=== PATIENT | female | born 1970 | race Hispanic/Latino ===

== ENCOUNTER 2016-11-05 11:04 | Inpatient (IN) | payer MEDICAID, OTHER ==
[2016-11-05 12:20] LABS: Basophils % (Auto) 0.9 % (0.0-1.8); Hematocrit 37.7 % (30.3-42.9); Hemoglobin 12.4 gm/dl (10.1-14.3); Mean Corpuscular HGB Conc 33 % (30-34); Mean Corpuscular Hemoglobin 35 pg (28-32); Mean Corpuscular Volume 105 fl (79-97); Platelet Count 262 K/mm3 (140-440)
[2016-11-05 12:46] LABS: Alanine Aminotransferase 12 units/L (7-56); Albumin 2.2 g/dL (3.9-5); Albumin/Globulin Ratio 0.5 %; Alkaline Phosphatase 193 units/L (35-129); Bilirubin,Total 3.5 mg/dL (0.1-1.2); Blood Urea Nitrogen 5 mg/dL (7-17); Calcium 7.9 mg/dL (8.4-10.2); Carbon Dioxide 23 mmol/L (22-30); Glucose 103 mg/dL (65-100); Lipase 26 units/L (13-60); Total Protein 6.7 g/dL (6.3-8.2)
[2016-11-05 12:47] LABS: Anion Gap 17 mmol/L; Chloride 96.2 mmol/L (98-107); Potassium 3.7 mmol/L (3.6-5.0); Sodium 132 mmol/L (137-145)
[2016-11-05] MEDS ORDERED: DILAUDID IV ONE ×2 (15:07→16:38)
[2016-11-05] MEDS ORDERED: ZOFRAN IV ONE (15:07)
--- NOTE | 2016-11-05 15:15 | Emergency Department Report ---
ED Abdominal Pain HPI - General Chief Complaint: Abdominal Pain Stated Complaint: ABD PAIN /SWELLING Time Seen by Provider: 11/05/16 14:58 Source: patient Mode of arrival: Wheelchair Limitations: Physical Limitation - History of Present Illness Initial Comments: 46-year-old female with past medical history liver cirrhosis, hypertension, anxiety, and depression presents to the hospital with complaints of abdominal pain and distention. Patient complains of generalized abdominal pain described as a tightness and needle sensation radiating to back and also pressure extending to chest. Patient had a paracentesis 3-4 weeks ago at [facility]. She re-presented to [facility] on the and was given pain medication since at home. Patient reports that she has had a 2 paracentesis total since ascites developed over the last 2 months. Patient states the pain is rated 8/10 intensity, constant, worse with palpation. No alleviating factors. Patient denies fever. Mild nausea vomiting reported this morning. He says states bowel movements are normal. Patient states she does not know the cause of her cirrhosis but thinks drinking might have something to do with it. Previous appendectomy reported. GI MD: Sophia cost report clerk Severity scale (0 -10): 8 - Related Data Home Medications Medication Instructions Recorded Confirmed Last Taken FLUoxetine [PROzac] 20 mg PO QDAY 06/22/15 11/05/16 1 Day Ago QUEtiapine [SEROquel] 25 mg PO QHS 06/22/15 11/05/16 1 Day Ago Allergies Allergy/AdvReac Type Severity Reaction Status Date / Time No Known Allergies Allergy Verified 11/05/16 11:36 ED Review of Systems ROS: Stated complaint: ABD PAIN /SWELLING Other details as noted in HPI Comment: All other systems reviewed and negative Other: Constitutional: No fevers chills Eyes: No eye pain visual changes ENT: No ear pain or throat pain Neck: Denies pain Respiratory: Denies cough wheezing shortness of breath Cardiovascular: Denies chest pain, palpitations, syncope GI: as per hpi : Denies dysuria Musculoskeletal: Denies back pain Skin: Denies rash, lesions, erythema Neurologic: Denies headache, numbness, weakness Psychiatric: Denies suicidal ideation, hallucinations ED Past Medical Hx - Past Medical History Hx Hypertension: Yes (not on meds) Hx Congestive Heart Failure: No Hx Diabetes: No Hx Liver Disease: Yes (CIRRHOSIS) Hx Psychiatric Treatment: Yes (anxiety, DEPRESSION) Hx Asthma: No Hx COPD: No Additional medical history: psoriasis - Surgical History Hx Appendectomy: Yes Additional Surgical History: - Social History Smoking Status: Former Smoker Substance Use Type: None - Medications Home Medications: Home Medications Medication Instructions Recorded Confirmed Last Taken Type FLUoxetine [PROzac] 20 mg PO QDAY 06/22/15 11/05/16 1 Day Ago History QUEtiapine [SEROquel] 25 mg PO QHS 06/22/15 11/05/16 1 Day Ago History ED Physical Exam - General Limitations: Physical Limitation - Other Other exam information: General: No limitations, patient is alert in no acute distress Head exam: Atraumatic, normocephalic Eyes exam: Normal appearance ENT: Moist mucous membrane Neck exam: Normal inspection, full range of motion Respiratory exam: Clear to auscultation bilateral, no wheezes, rales, crackles Cardiovascular: Normal rate and rhythm Abdomen: Abdomen distended, firm positive ascites. Generalized tenderness no rebound or guarding Extremity: Full range of motion normal inspection no deformity Back: Normal Inspection, full range of motion, no tenderness Neurologic: Alert, oriented x3, cranial nerves intact, no motor or sensory deficit Psychiatric: normal affect, normal mood Skin: Warm ED Course Vital Signs 11/05/16 11/05/16 11/05/16 11:40 14:49 14:50 Temperature 98.5 F Pulse Rate 105 H 98 H Respiratory 17 17 Rate Blood Pressure 111/79 89/60 Blood Pressure [Right] O2 Sat by Pulse 99 97 100 Oximetry 11/05/16 11/05/16 11/05/16 14:56 15:00 15:11 Temperature 98 F Pulse Rate 95 H 98 H 103 H Respiratory 18 14 12 Rate Blood Pressure 104/67 104/67 Blood Pressure 89/60 [Right] O2 Sat by Pulse 99 100 100 Oximetry 11/05/16 11/05/16 11/05/16 15:21 15:31 15:41 Temperature Pulse Rate 102 H 101 H 96 H Respiratory 12 14 16 Rate Blood Pressure 104/67 104/67 104/67 Blood Pressure [Right] O2 Sat by Pulse 98 98 100 Oximetry 11/05/16 11/05/16 11/05/16 15:51 16:01 16:11 Temperature Pulse Rate 96 H 99 H 103 H Respiratory 19 13 19 Rate Blood Pressure 104/67 106/72 106/72 Blood Pressure [Right] O2 Sat by Pulse 98 98 99 Oximetry 11/05/16 11/05/16 11/05/16 16:21 16:31 16:41 Temperature Pulse Rate 103 H 108 H Respiratory 15 17 Rate Blood Pressure 106/72 106/72 110/67 Blood Pressure 110/67 [Right] O2 Sat by Pulse 98 99 99 Oximetry 11/05/16 11/05/16 11/05/16 16:51 16:58 17:00 Temperature Pulse Rate 104 H 101 H Respiratory 13 20 15 Rate Blood Pressure 110/67 102/74 Blood Pressure [Right] O2 Sat by Pulse 98 99 99 Oximetry 11/05/16 11/05/16 11/05/16 17:11 17:21 17:31 Temperature Pulse Rate 103 H 116 H 113 H Respiratory 26 H 22 18 Rate Blood Pressure 102/74 102/74 102/74 Blood Pressure [Right] O2 Sat by Pulse 99 100 98 Oximetry 11/05/16 11/05/16 11/05/16 17:41 17:51 18:00 Temperature Pulse Rate 110 H 103 H 104 H Respiratory 17 11 L 14 Rate Blood Pressure 102/74 102/74 97/70 Blood Pressure [Right] O2 Sat by Pulse 98 98 98 Oximetry 11/05/16 11/05/16 11/05/16 18:11 18:21 18:31 Temperature Pulse Rate 106 H 98 H 106 H Respiratory 17 13 14 Rate Blood Pressure 97/70 97/70 97/70 Blood Pressure [Right] O2 Sat by Pulse 99 98 96 Oximetry 11/05/16 11/05/16 11/05/16 18:41 18:51 19:00 Temperature Pulse Rate 101 H 98 H 97 H Respiratory 14 13 15 Rate Blood Pressure 97/70 97/70 105/65 Blood Pressure [Right] O2 Sat by Pulse 97 99 97 Oximetry ED Medical Decision Making - Lab Data Result diagrams: 11/05/16 11:52 11/05/16 11:52 Lab Results 11/05/16 11/05/16 11/05/16 Range/Units 11:52 11:52 11:52 WBC 9.0 (4.5-11.0) K/mm3 RBC 3.60 L (3.65-5.03) M/mm3 Hgb 12.4 (10.1-14.3) gm/dl Hct 37.7 (30.3-42.9) % MCV 105 H (79-97) fl MCH 35 H (28-32) pg MCHC 33 (30-34) % RDW 14.0 (13.2-15.2) % Plt Count 262 (140-440) K/mm3 Lymph % (Auto) 24.3 (13.4-35.0) % [place] % (Auto) 11.3 H (0.0-7.3) % Eos % (Auto) 1.0 (0.0-4.3) % Baso % (Auto) 0.9 (0.0-1.8) % Lymph # 2.2 (1.2-5.4) K/mm3 [place] # 1.0 H (0.0-0.8) K/mm3 Eos # 0.1 (0.0-0.4) K/mm3 Baso # 0.1 (0.0-0.1) K/mm3 Seg Neutrophils % 62.5 (40.0-70.0) % Seg Neutrophils # 5.6 (1.8-7.7) K/mm3 PT (12.2-14.9) Sec. INR (0.87-1.13) APTT (24.2-36.6) Sec. Sodium 132 L (137-145) mmol/L Potassium 3.7 (3.6-5.0) mmol/L Chloride 96.2 L (98-107) mmol/L Carbon Dioxide 23 (22-30) mmol/L Anion Gap 17 mmol/L BUN 5 L (7-17) mg/dL Creatinine 0.4 L (0.7-1.2) mg/dL Estimated GFR > 60 ml/min BUN/Creatinine Ratio 12.50 % Glucose 103 H (65-100) mg/dL Calcium 7.9 L (8.4-10.2) mg/dL Total Bilirubin 3.5 H (0.1-1.2) mg/dL AST 34 (5-40) units/L ALT 12 (7-56) units/L Alkaline Phosphatase 193 H (35-129) units/L Total Protein 6.7 (6.3-8.2) g/dL Albumin 2.2 L (3.9-5) g/dL Albumin/Globulin Ratio 0.5 % Lipase 26 (13-60) units/L HCG, Qual Negative (Negative) Urine Color (Yellow) Urine Turbidity (Clear) Urine pH (5.0-7.0) Ur Specific [place] (1.003-1.030) Urine Protein (Negative) mg/dL Urine Glucose (UA) (Negative) mg/dL Urine Ketones (Negative) mg/dL Urine Blood (Negative) Urine Nitrite (Negative) Urine Bilirubin (Negative) Urine Ictotest (Negative) Urine Urobilinogen (<2.0) mg/dL Ur Leukocyte Esterase (Negative) Urine WBC (Auto) (0.0-6.0) /HPF Urine RBC (Auto) (0.0-6.0) /HPF U Epithel Cells (Auto) (0-13.0) /HPF Urine Mucus /HPF 11/05/16 11/05/16 Range/Units 15:18 16:51 WBC (4.5-11.0) K/mm3 RBC (3.65-5.03) M/mm3 Hgb (10.1-14.3) gm/dl Hct (30.3-42.9) % MCV (79-97) fl MCH (28-32) pg MCHC (30-34) % RDW (13.2-15.2) % Plt Count (140-440) K/mm3 Lymph % (Auto) (13.4-35.0) % [place] % (Auto) (0.0-7.3) % Eos % (Auto) (0.0-4.3) % Baso % (Auto) (0.0-1.8) % Lymph # (1.2-5.4) K/mm3 [place] # (0.0-0.8) K/mm3 Eos # (0.0-0.4) K/mm3 Baso # (0.0-0.1) K/mm3 Seg Neutrophils % (40.0-70.0) % Seg Neutrophils # (1.8-7.7) K/mm3 PT 18.5 H (12.2-14.9) Sec. INR 1.54 H (0.87-1.13) APTT 48.5 H (24.2-36.6) Sec. Sodium (137-145) mmol/L Potassium (3.6-5.0) mmol/L Chloride (98-107) mmol/L Carbon Dioxide (22-30) mmol/L Anion Gap mmol/L BUN (7-17) mg/dL Creatinine (0.7-1.2) mg/dL Estimated GFR ml/min BUN/Creatinine Ratio % Glucose (65-100) mg/dL Calcium (8.4-10.2) mg/dL Total Bilirubin (0.1-1.2) mg/dL AST (5-40) units/L ALT (7-56) units/L Alkaline Phosphatase (35-129) units/L Total Protein (6.3-8.2) g/dL Albumin (3.9-5) g/dL Albumin/Globulin Ratio % Lipase (13-60) units/L HCG, Qual (Negative) Urine Color Laura (Yellow) Urine Turbidity Slightly-cloudy (Clear) Urine pH 5.0 (5.0-7.0) Ur Specific [place] 1.029 (1.003-1.030) Urine Protein 100 mg/dl (Negative) mg/dL Urine Glucose (UA) 50 (Negative) mg/dL Urine Ketones Neg (Negative) mg/dL Urine Blood Neg (Negative) Urine Nitrite Neg (Negative) Urine Bilirubin Sm (Negative) Urine Ictotest Positive (Negative) Urine Urobilinogen 2.0 (<2.0) mg/dL Ur Leukocyte Esterase Sm (Negative) Urine WBC (Auto) 6.0 (0.0-6.0) /HPF Urine RBC (Auto) 3.0 (0.0-6.0) /HPF U Epithel Cells (Auto) 24.0 H (0-13.0) /HPF Urine Mucus 3+ /HPF Critical care attestation.: If time is entered above; I have spent that time in minutes in the direct care of this critically ill patient, excluding procedure time. ED Disposition Clinical Impression: Ascites, Coagulopathy, Cirrhosis of liver, History of alcohol abuse, Intractable abdominal pain Disposition: OP ADMITTED IP TO THIS HOSP Is pt being admited?: Yes Condition: Stable Time of Disposition: 17:16 (Dr montes/hosp)
[2016-11-05 16:36] LABS: INR 1.54 (0.87-1.13)
[2016-11-05 16:37] LABS: Partial Thromboplastin Time 48.5 Sec. (24.2-36.6)
[2016-11-05 17:17] LABS: Bilirubin,Urine SM (Negative); Blood,Urine NEG (Negative); Ketones,Urine NEG (Negative); Leukocyte Esterase,Urine SM (Negative); Mucus,Urine 3+ /HPF; Nitrite,Urine NEG (Negative)
--- NOTE | 2016-11-05 17:59 | Admit Criteria Form ---
Admission Criteria Documentation: ABDOMINAL PAIN Clinical Indications for Admission to Inpatient Care (Place 'X' for any and all applicable criteria): Admission is indicated for ANY ONE of the following(1)(2)(3)(4)(5): [X]I. Inpatient admission required rather than observation care (Also use Abdominal Pain: Observation Care, as appropriate) because of ANY ONE of the following: [X]a) Severe pain requiring acute inpatient management [ ]b) Identification of etiology/finding that requires inpatient care (eg, aortic dissection, free air) [ ]c) Absent bowel sounds with complete ileus(6) [ ]d) Suspected toxic megacolon [ ]e) Severe electrolyte abnormalities requiring inpatient care [ ]f) High fever or infection requiring inpatient admission as indicated by ANY ONE of following(7)(8): [ ] i) Appropriate outpatient or observational care antimicrobial treatment unavailable, not effective, or not feasible [ ] ii) Documented bacteremia [ ] iii) Temperature > 104.9 degrees F (oral) [ ] iv) T >103.1 F (oral) or < 96.8 F(rectal) that does not respond to all emergency treatment measures [ ]g) Signs of intestinal obstruction [B] [ ]h) Hemodynamic instability [ ]i) IV fluid to replace significant ongoing losses (greater than 3 L/m2 per day) (12)(13) [ ]j) Percutaneous or open drainage (eg, abscess, biliary tract ) procedures [ ]k) Parenteral nutrition regimen that must be implemented on inpatient basis [X]l) Other condition,treatment or monitoring requiring inpatient admission. [ ]II. Peritoneal signs present [ ]III. Surgery needed that cannot be performed on an ambulatory basis. [ ]IV. Evaluation requires patient to not eat or drink for extended period ( eg, more than 24 hours). [ ]V. Contraindications and/or Inappropriate clinical situations for Observational Care in patients with abdominal pain, when ANY ONE of the following is required: [ ]a) Thorough evaluation is required to prevent catastrophic events due to delays in diagnosing (e.g.Mesenteric ischemia) 1,3 [ ]b) Patient with severe pathology or with chronic symptoms unlikely to improve in the ED stay (3) [ ]. General contraindications and/or Inappropriate clinical situations for Observational Care in patients with abdominal pain, when ANY ONE of the following is required: [ ]a) Prediction of prolongation of LOS based on ANY ONE of the following may be considered as a contraindication for observational care 2, 3, 4, 5, 6, 7, 8, 9, 10, 11 [ ]i) Age > 65 yrs. [ ]ii) Patient arriving by ambulance [ ]iii) Patient with high acuity [ ]iv) Patient requiring vital sign monitoring [ ]v) Patient on IV medication [ ]b) Systolic blood pressures 180mmHg 3,12 [ ]c) Patient with altered mental status including delirium and other alteration of consciousness, (3) [ ]d) Patient whose discharge disposition will be to a prison home or rehabilitation home should not be managed in Emergency Department Observation Unit. CMS rule requires 3 days hospital stay before such placement.3,13 [ ]e) Patient with failure to thrive due to broad array of etiologies 3,16,17 [ ]f) Inability to ambulate 3,14 Extended stay beyond goal length of stay may be needed for(2)(3): [ ]a) Persistent abdominal pain with suspected intra-abdominal process [ ]b) Diagnosed condition requiring continued stay (e.g., pancreatitis, complicated diverticulitis) [ ]c) Surgery (e.g., colectomy) The original [facility] content created by [employer] has been revised. The portions of the content which have been revised are identified through the use of italic text or in bold, and [facility] has neither reviewed nor approved the modified material.All other unmodified content is copyright [facility]. Please see references footnoted in the original [facility] edition 2016 Admission Criteria Met: Yes
--- NOTE | 2016-11-05 18:45 | History and Physical Report ---
History of Present Illness Date of examination: 11/05/16 Date of admission: 11/05/16 17:17 Chief complaint: abdominal pain and back pain History of present illness: 46-year-old female with past medical history alcoholic liver cirrhosis, hypertension, anxiety, and depression presents to the hospital with complaints of abdominal pain and distention. Patient complains of generalized abdominal pain described as a tightness and radiating to back . Patient had a paracentesis 3-4 weeks ago at [facility]. Patient reports that she has had paracentesis X 2 since ascites developed over the last 2 months. Patient states the pain is rated 8/10 intensity, constant, worse with palpation. No alleviating factors. Patient denies fever. Has mild nausea vomiting this morning. she states bowel movements are normal but states has BM once every 2 days. States her last alcohol drink was 5 months ago. GI MD: [facility], ? Dr. capone Past History Past Medical History: liver disease (cirrhosis, most likely alcoholic liver disease), other (depression anxiety and insomnia) Past Surgical History: appendectomy Social history: smoking. denies: alcohol abuse (quit alcohol 5 months ago) Family history: no significant family history Medications and Allergies Allergies Allergy/AdvReac Type Severity Reaction Status Date / Time No Known Allergies Allergy Verified 11/05/16 11:36 Home Medications Medication Instructions Recorded Confirmed Last Taken Type FLUoxetine [PROzac] 20 mg PO QDAY 06/22/15 11/05/16 1 Day Ago History QUEtiapine [SEROquel] 25 mg PO QHS 06/22/15 11/05/16 1 Day Ago History Review of Systems Constitutional: weight loss (14 pound weight loss in the past 6 months), fatigue (feels tired all the time), no fever, no chills Ears, nose, mouth and throat: no ear pain, no ear discharge, no tinnitis, no sore throat, no headache, no vertigo Cardiovascular: dyspnea on exertion, no chest pain, no orthopnea, no palpitations, no syncope, no paroxysmal nocturnal dyspnea Respiratory: no cough, no shortness of breath Gastrointestinal: abdominal pain, nausea, vomiting, loss of appetite, no diarrhea, no constipation, no hematemesis, no BRBPR, no melena, no early satiety Genitourinary Female: no flank pain, no dysuria, no urinary frequency, no stress incontinence, no urge incontinence Rectal: no pain, no bleeding Musculoskeletal: low back pain, no neck pain, no leg numbness/tingling Integumentary: no rash, no pruritis Neurological: weakness, no head injury, no seizures, no syncope, no vertigo, no headaches Psychiatric: anxiety, insomnia, depression Endocrine: no excessive thirst, no polydipsia, no polyuria Exam - Constitutional Vitals: Temp Pulse Resp BP Pulse Ox 98 F 103 H 11 L 102/74 98 11/05/16 14:56 11/05/16 17:51 11/05/16 17:51 11/05/16 17:51 11/05/16 17:51 General appearance: Present: no acute distress, other (moderately malnourished) - EENT Eyes: Present: PERRL, EOM intact ENT: hearing intact, clear oral mucosa - Neck Neck: Present: supple, normal ROM. Absent: enlarged thyroid, masses or JVD - Respiratory Respiratory effort: normal Respiratory: bilateral: CTA, negative: rales, rhonchi, wheezing - Cardiovascular Rhythm: regular Heart Sounds: Present: S1 & S2 - Extremities Extremities: pulses intact Extremity abnormal: edema (bilateral pedal and leg edema) Peripheral Pulses: within normal limits - Abdominal General gastrointestinal: Present: soft, tender (mild diffuse tenderness no guarding or rigidity), distended (moderate ascites with shifting dullness). Absent: hepatomegaly, splenomegaly - Rectal Rectal Exam: deferred - Integumentary Integumentary: Present: clear - Musculoskeletal Musculoskeletal: strength equal bilaterally - Psychiatric Psychiatric: intact judgment & insight - Neurologic Neurologic: CNII-XII intact, no focal deficits, moves all extremities Results - Labs CBC & Chem 7: 11/05/16 11:52 11/05/16 11:52 Assessment and Plan - Patient Problems (1) Alcoholic cirrhosis of liver with ascites Current Visit: Yes Status: Chronic Plan to address problem: There is no evidence of peritonitis on clinical examination She needs paracentesis Also start the patient on lactulose for regular bowel movements there Is no evidence of any encephalopathy at this time Her platelets are adequate We will crest ultrasound-guided paracentesis Patient on low-dose beta delia (2) Abdominal pain Current Visit: Yes Status: Acute Qualifiers: Abdominal location: A Plan to address problem: Likely secondary to significant ascites To evidence of any peritonitis We will schedule for ultrasound-guided paracentesis (3) Malnutrition Current Visit: Yes Status: Chronic Plan to address problem: Nutrition consult 2/2 cirrhosis (4) Hyponatremia Current Visit: Yes Status: Acute Plan to address problem: Secondary to cirrhosis Monitor electrolytes (5) Coagulopathy Current Visit: Yes Status: Acute Plan to address problem: INR is mildly elevated No active bleeding (6) Depression Current Visit: Yes Status: Acute Qualifiers: Depression Type: D Major depression recurrence: M Active/Remission status : A Major depression episode severity: M Psychotic features: P Trimester: T Plan to address problem: Continue Prozac and Seroquel
[2016-11-05] MEDS ORDERED: DULCOLAX PR PRN (19:09)
[2016-11-05] MEDS ORDERED: MILK OF MAGNESIA PO PRN (19:09)
[2016-11-05] MEDS: MORPHINE IV PRN (20:44)
[2016-11-05] MEDS: PEPCID PO SCH (21:02)
[2016-11-05] MEDS: HEPARIN SUB-Q SCH (22:10)
[2016-11-06] MEDS: MORPHINE IV PRN ×3 (00:37→11:29)
[2016-11-06] MEDS: ZOFRAN IV PRN ×3 (00:41→18:42)
[2016-11-06 08:44] LABS: Anion Gap 15 mmol/L; Blood Urea Nitrogen 5 mg/dL (7-17); Calcium 7.7 mg/dL (8.4-10.2); Carbon Dioxide 24 mmol/L (22-30); Chloride 99.7 mmol/L (98-107); Glucose 90 mg/dL (65-100); Potassium 3.7 mmol/L (3.6-5.0); Sodium 135 mmol/L (137-145)
--- NOTE | 2016-11-06 10:49 | Ultrasound Report ---
ULTRASOUND-GUIDED PARACENTESIS INDICATION: Ascites, cirrhosis. COMPARISON: None similar. FINDINGS: After explaining the risk and benefits to the patient, written informed consent obtained. Using ultrasound guidance, an appropriate skin site in the left lower quadrant marked. Skin prepped and draped in the usual sterile fashion. 1% Xylocaine used for local anesthesia. Using ultrasound guidance, a 5 Irish iSell.comeh catheter was placed into the fluid collection and 5800 cc of straw-colored fluid aspirated. No sample sent to laboratory. Catheter removed and hemostasis achieved. Patient tolerated the procedure well and left the radiology department in stable condition. CONCLUSION: Ultrasound guided paracentesis, as described above. Dr. Morton present for and performed the entire procedure. Thank you for the opportunity to participate in this patient's care.
[2016-11-06 11:03] LABS: INR 1.58 (0.87-1.13)
[2016-11-06] MEDS: CEPHULAC PO SCH (11:33)
[2016-11-06] MEDS: PEPCID PO SCH ×2 (11:33→22:41)
[2016-11-06] MEDS: PROzac PO SCH (11:34)
[2016-11-06] MEDS: HEPARIN SUB-Q SCH ×3 (11:36→22:45)
--- NOTE | 2016-11-06 11:56 | Progress Note ---
Assessment and Plan Assessment and plan: Alcoholic liver cirrhosis. GI consulted. Gross ascitis from cirrhosis. s/p paracentesis this morning with 5800ml straw colored fluid removed. Abdominal pain. Morphine iv prn Hypertension. On Nadolol Anxiety and depression. Continue Prozac History Interval history: abdominal pain, asking for stronger pain medications Hospitalist Physical - Physical exam Narrative exam: Gen: Not in acute distress, HEENT: Normocephalic, atraumatic Neck: supple, no JVD Lungs:Lungs clear to auscultation, bilaterally, no crackles or wheeze Heart S1-S2 regular, tachycardia, no murmurs rubs or gallop, Abdomen: soft, tender, mild distended,bowel sounds present Ext: No edema, no clubbing, no cyanosis Neuro: Awake.alert, oriented x 3, non focal - Constitutional Vitals: Temp Pulse Resp BP Pulse Ox 98.4 F 97 H 16 91/61 100 11/06/16 08:00 11/06/16 08:00 11/06/16 08:00 11/06/16 08:00 11/06/16 08:00 General appearance: Present: no acute distress, other (moderately malnourished) Results - Labs CBC & Chem 7: 11/05/16 11:52 11/06/16 07:09 Labs: Laboratory Last Values WBC 9.0 K/mm3 (4.5-11.0) 11/05/16 11:52 RBC 3.60 M/mm3 (3.65-5.03) L 11/05/16 11:52 Hgb 12.4 gm/dl (10.1-14.3) 11/05/16 11:52 Hct 37.7 % (30.3-42.9) 11/05/16 11:52 MCV 105 fl (79-97) H 11/05/16 11:52 MCH 35 pg (28-32) H 11/05/16 11:52 MCHC 33 % (30-34) 11/05/16 11:52 RDW 14.0 % (13.2-15.2) 11/05/16 11:52 Plt Count 262 K/mm3 (140-440) 11/05/16 11:52 Lymph % (Auto) 24.3 % (13.4-35.0) 11/05/16 11:52 [place] % (Auto) 11.3 % (0.0-7.3) H 11/05/16 11:52 Eos % (Auto) 1.0 % (0.0-4.3) 11/05/16 11:52 Baso % (Auto) 0.9 % (0.0-1.8) 11/05/16 11:52 Lymph # 2.2 K/mm3 (1.2-5.4) 11/05/16 11:52 [place] # 1.0 K/mm3 (0.0-0.8) H 11/05/16 11:52 Eos # 0.1 K/mm3 (0.0-0.4) 11/05/16 11:52 Baso # 0.1 K/mm3 (0.0-0.1) 11/05/16 11:52 Seg Neutrophils % 62.5 % (40.0-70.0) 11/05/16 11:52 Seg Neutrophils # 5.6 K/mm3 (1.8-7.7) 11/05/16 11:52 PT 18.8 Sec. (12.2-14.9) H 11/06/16 10:10 INR 1.58 (0.87-1.13) H 11/06/16 10:10 APTT 48.5 Sec. (24.2-36.6) H 11/05/16 15:18 Sodium 135 mmol/L (137-145) L 11/06/16 07:09 Potassium 3.7 mmol/L (3.6-5.0) 11/06/16 07:09 Chloride 99.7 mmol/L (98-107) 11/06/16 07:09 Carbon Dioxide 24 mmol/L (22-30) 11/06/16 07:09 Anion Gap 15 mmol/L 11/06/16 07:09 BUN 5 mg/dL (7-17) L 11/06/16 07:09 Creatinine 0.4 mg/dL (0.7-1.2) L 11/06/16 07:09 Estimated GFR > 60 ml/min 11/06/16 07:09 BUN/Creatinine Ratio 12.50 % 11/06/16 07:09 Glucose 90 mg/dL (65-100) 11/06/16 07:09 Calcium 7.7 mg/dL (8.4-10.2) L 11/06/16 07:09 Total Bilirubin 3.5 mg/dL (0.1-1.2) H 11/05/16 11:52 AST 34 units/L (5-40) 11/05/16 11:52 ALT 12 units/L (7-56) 11/05/16 11:52 Alkaline Phosphatase 193 units/L (35-129) H 11/05/16 11:52 Total Protein 6.7 g/dL (6.3-8.2) 11/05/16 11:52 Albumin 2.2 g/dL (3.9-5) L 11/05/16 11:52 Albumin/Globulin Ratio 0.5 % 11/05/16 11:52 Lipase 26 units/L (13-60) 11/05/16 11:52 HCG, Qual Negative (Negative) 11/05/16 11:52 Urine Color Laura (Yellow) 11/05/16 16:51 Urine Turbidity Slightly-cloudy (Clear) 11/05/16 16:51 Urine pH 5.0 (5.0-7.0) 11/05/16 16:51 Ur Specific [place] 1.029 (1.003-1.030) 11/05/16 16:51 Urine Protein 100 mg/dl mg/dL (Negative) 11/05/16 16:51 Urine Glucose (UA) 50 mg/dL (Negative) 11/05/16 16:51 Urine Ketones Neg mg/dL (Negative) 11/05/16 16:51 Urine Blood Neg (Negative) 11/05/16 16:51 Urine Nitrite Neg (Negative) 11/05/16 16:51 Urine Bilirubin Sm (Negative) 11/05/16 16:51 Urine Ictotest Positive (Negative) 11/05/16 16:51 Urine Urobilinogen 2.0 mg/dL (<2.0) 11/05/16 16:51 Ur Leukocyte Esterase Sm (Negative) 11/05/16 16:51 Urine WBC (Auto) 6.0 /HPF (0.0-6.0) 11/05/16 16:51 Urine RBC (Auto) 3.0 /HPF (0.0-6.0) 11/05/16 16:51 U Epithel Cells (Auto) 24.0 /HPF (0-13.0) H 11/05/16 16:51 Urine Mucus 3+ /HPF 11/05/16 16:51
--- NOTE | 2016-11-06 12:04 | Procedure Note ---
Date of procedure: 11/06/16 Pre-op diagnosis: Ascites, Cirrhosis Post-op diagnosis: same Procedure: US guided paracentesis. Findings: 5800 cc yellow serous fluid removed. Anesthesia: local Surgeon: YANELY MACK Estimated blood loss: none Specimen disposition: discarded Condition: stable Disposition: floor
[2016-11-06] MEDS ORDERED: MORPHINE IV PRN (14:46)
--- NOTE | 2016-11-06 16:12 | Gastroenterology Consultation ---
History of Present Illness - Reason for Consult Consult date: 11/06/16 cirrhosis, ascites Requesting physician: CAROLINE LIGHT - History of Present Illness Ms Haile is a 46 yo female with h/o alcohol abuse with recent admission to [facility] for alcoholic hepatitis presents with worsening ascites and pain. Patient is followed by me in clinic. She denies any alcohol since prior to last admission at [facility]. She continues to feel weak/fatigue, and c/o discomfort 2/2 ascites. Denies GI bleeding, mental status changes, or n/v. s/p therapeutic paracentesis with ~5L removed. Past History Past Medical History: liver disease (cirrhosis, most likely alcoholic liver disease), other (depression anxiety and insomnia) Past Surgical History: appendectomy Social history: smoking. denies: alcohol abuse (quit alcohol 5 months ago) Family history: no significant family history Medications and Allergies Allergies Allergy/AdvReac Type Severity Reaction Status Date / Time No Known Allergies Allergy Verified 11/05/16 11:36 Home Medications Medication Instructions Recorded Confirmed Last Taken Type FLUoxetine [PROzac] 20 mg PO QDAY 06/22/15 11/05/16 1 Day Ago History QUEtiapine [SEROquel] 25 mg PO QHS 06/22/15 11/05/16 1 Day Ago History Active Meds: Active Medications Bisacodyl (Dulcolax) 10 mg NC QDAY PRN PRN Reason: Constipation unrelieved by MOM Famotidine (Pepcid) 20 mg PO BID [facility] Last Admin: 11/06/16 11:33 Dose: 20 mg Fluoxetine HCl (Prozac) 20 mg PO QDAY [facility] Last Admin: 11/06/16 11:34 Dose: 20 mg Heparin Sodium (Porcine) (Heparin) 5,000 unit SUB-Q Q12HR [facility] Last Admin: 11/06/16 11:36 Dose: 5,000 unit Lactulose (Cephulac) 20 gm PO QDAY [facility] Last Admin: 11/06/16 11:33 Dose: 20 gm Magnesium Hydroxide (Milk Of Magnesia) 30 ml PO Q4H PRN PRN Reason: Constipation Morphine Sulfate (Morphine) 4 mg IV Q4H PRN PRN Reason: Pain, Moderate (4-6) Nadolol (Corgard) 20 mg PO QDAY [facility] Ondansetron HCl (Zofran) 4 mg IV Q8H PRN PRN Reason: N/V unrelieved by Reglan Last Admin: 11/06/16 06:15 Dose: 4 mg Quetiapine Fumarate (Seroquel) 25 mg PO QHS [facility] Last Admin: 11/05/16 21:02 Dose: 25 mg Review of Systems - Review of Systems All systems: negative (per HPI) Exam - Constitutional Vital Signs: Temp Pulse Resp BP Pulse Ox 98.4 F 97 H 16 91/61 100 11/06/16 08:00 11/06/16 08:00 11/06/16 08:00 11/06/16 08:00 11/06/16 08:00 General appearance: no acute distress, other (chronically ill appearing) - EENT Eyes: PERRL, EOM intact, scleral icterus ENT: hearing intact, clear oral mucosa, poor dentition - Respiratory Respiratory effort: normal Respiratory: bilateral: CTA - Cardiovascular Rhythm: regular Heart Sounds: Present: S1 & S2 Extremities: no ischemia, No edema - Gastrointestinal General gastrointestinal: Present: soft, tender (diffuse ttp, no rebound/ guarding, mild distention, +bs) - Integumentary Integumentary: Present: clear, warm - Musculoskeletal Musculoskeletal: normal - Neurologic Neurological: alert and oriented x3 - Psychiatric Psychiatric: appropriate mood/affect - Labs CBC & Chem 7: 11/05/16 11:52 11/06/16 07:09 Lab Results: Laboratory Results - last 24 hr 11/06/16 11/06/16 07:09 10:10 PT 18.8 H INR 1.58 H Sodium 135 L Potassium 3.7 Chloride 99.7 Carbon Dioxide 24 Anion Gap 15 BUN 5 L Creatinine 0.4 L Estimated GFR > 60 BUN/Creatinine Ratio 12.50 Glucose 90 Calcium 7.7 L - Imaging Ultrasound: report reviewed Assessment and Plan Ms Haile is a 46 yo female with h/o alcoholic hepatitis and suspected underlying cirrhosis presenting with ascites. Pt denies alcohol use for the past 1 month. She completed course of trental, and bilirubin lower then previous admission at [facility]. If she can continue to abstinence from alcohol, could pursue possible liver transplant evaluation. Regarding ascites she needs to be on a low sodium diet, and can consider increasing diuretic dose if renal function/electrolytes allows. Cont lactulose. No further inpatient recommendations at this time. Patient should follow-up in GI clinic as previously scheduled (or in 2 weeks if appt has not been made).
[2016-11-06] MEDS: CORGARD PO SCH (16:25)
[2016-11-06] MEDS: DILAUDID IV PRN ×2 (18:43→22:41)
[2016-11-07] MEDS: DILAUDID IV PRN ×3 (04:24→13:17)
[2016-11-07] MEDS: PROzac PO SCH (09:00)
[2016-11-07] MEDS: CORGARD PO SCH ×2 (09:00→09:10)
[2016-11-07] MEDS: PEPCID PO SCH (09:00)
[2016-11-07] MEDS: CEPHULAC PO SCH (09:00)
[2016-11-07] MEDS: HEPARIN SUB-Q SCH (09:03)
--- NOTE | 2016-11-07 10:26 | Discharge Summary ---
Providers - Providers Date of Admission: 11/05/16 17:17 Date of discharge: 11/07/16 Attending physician: CAROLINE LIGHT 11/05/16 19:09 Consult to Physician [CONS] Routine Consulting Provider: WHIT ASTORGA Reason For Exam: ascites/cirrhosis Place consult to:: DR. ASTORGA Notified:: [employer] Phone number called:: [phone] Was contact made?: Yes If yes, spoke with:: LUKAS Time called:: 09:05 Comment:: TERESA NOTIFIED 11/05/16 19:14 Consult to Dietitian/Nutrition [CONS] Routine Physician Instructions: Reason For Exam: Reason for Consult: Malnutrition Primary care physician: MDM DEVELOPER Hospitalization Condition: Fair Disposition: DISCHARGED TO HOME OR SELFCARE - Discharge Diagnoses (1) Abdominal pain Status: Acute Qualifiers: Abdominal location: A (2) Ascites Status: Acute Qualifiers: Ascites type: A (3) Cirrhosis of liver Status: Acute Qualifiers: Hepatic cirrhosis type: H Ascites presence: A Exam - Constitutional Vitals: Temp Pulse Resp BP Pulse Ox 98.0 F 108 H 16 94/58 95 11/07/16 07:58 11/07/16 07:58 11/07/16 07:58 11/07/16 07:58 11/07/16 07:58 Plan Activity: advance as tolerated Diet: low fat, low cholesterol, low salt Additional Instructions: 1.Follow up with PCP or [facility] in 1 week. 2.Follow up with NORMA Major in 1 week Follow up with: PRIMARY CARE, [Primary Care Provider] - 3-5 Days Prescriptions: Famotidine [Pepcid] 20 mg PO BID #60 tablet HYDROcodone/APAP 5-325 [[place] 5-325 mg TAB] 1 each PO Q6HR PRN #20 tablet PRN Reason: Pain Nadolol [Corgard] 20 mg PO QDAY #30 tablet QUEtiapine [SEROquel] 25 mg PO QHS #30 tablet
[2016-11-07 14:02] VITALS: BP 100/62
== END 2016-11-07 15:58 | disposition home or self-care (01) | DRG 433 ==
LOC: ED 11:04 → 3A 17:17
PROVIDERS: ADMIT Internal Medicine; ATTEND Internal Medicine
PROC: 0W9G30Z Drainage of Peritoneal Cavity with Drainage Device, Percutaneous Approach (ICD-10-PCS; principal; 2016-11-06)
DX: K70.31 Alcoholic cirrhosis of liver with ascites (principal); E87.1 Hypo-osmolality and hyponatremia; D68.9 Coagulation defect, unspecified; E46 Unspecified protein-calorie malnutrition; I10 Essential (primary) hypertension; F41.9 Anxiety disorder, unspecified; F32.9 Major depressive disorder, single episode, unspecified; F17.210 Nicotine dependence, cigarettes, uncomplicated; Z68.21 Body mass index [BMI] 21.0-21.9, adult; Z90.49 Acquired absence of other specified parts of digestive tract
CPT/HCPCS: 36415; 49083; 80048; 80053; 81001; 83690; 84703; 85025; 85610; 85730; J1170; J1644; J2270; J2405

== ENCOUNTER 2016-11-12 08:40 | Emergency (ER) | payer SELFPAY ==
[2016-11-12 09:25] LABS: Basophils % (Auto) 0.9 % (0.0-1.8); Eosinophils % (Auto) 1.9 % (0.0-4.3); Hematocrit 36.3 % (30.3-42.9); Mean Corpuscular HGB Conc 33 % (30-34); Mean Corpuscular Hemoglobin 34 pg (28-32); Mean Corpuscular Volume 103 fl (79-97); Platelet Count 250 K/mm3 (140-440); Red Blood Count 3.52 M/mm3 (3.65-5.03); Red Cell Distribution Width 14.9 % (13.2-15.2); White Blood Count 7.9 K/mm3 (4.5-11.0)
[2016-11-12 09:32] LABS: Alanine Aminotransferase 11 units/L (7-56); Albumin/Globulin Ratio 0.5 %; Alkaline Phosphatase 184 units/L (35-129); Anion Gap 15 mmol/L; Bilirubin,Total 2.2 mg/dL (0.1-1.2); Blood Urea Nitrogen 9 mg/dL (7-17); Carbon Dioxide 25 mmol/L (22-30); Chloride 97.7 mmol/L (98-107); Glucose 104 mg/dL (65-100); Lipase 35 units/L (13-60); Potassium 3.6 mmol/L (3.6-5.0); Sodium 134 mmol/L (137-145)
[2016-11-12] MEDS ORDERED: SUBLIMAZE IV ONE ×2 (10:27→12:00)
[2016-11-12] MEDS ORDERED: SUBLIMAZE ONE (10:37)
--- NOTE | 2016-11-12 10:37 | Emergency Department Report ---
HPI - General Chief Complaint: Abdominal Pain Time Seen by Provider: 11/12/16 10:08 - HPI HPI: 46-year-old female presents to the emergency department by EMS from home with complaint of generalized abdominal pain with some radiation to the back is been going on since last night but is more of a acute on chronic condition from a few months ago. She complains of nausea with one episode of vomiting this morning. There is been no fever, diarrhea, chest pain. She has a history of cirrhosis, anxiety, depression and psoriasis. She has not taken anything for symptoms prior to presentation. Not have a primary care doctor but sees Dr. Bradshaw for gastroenterology. The patient says she was here about one week ago for similar symptoms and had "my liver drained" but is out of pain medication since that time. Recent travel or sick contacts at home. ED Past Medical Hx - Past Medical History Hx Hypertension: Yes Hx Congestive Heart Failure: No Hx Diabetes: No Hx Liver Disease: Yes (CIRRHOSIS) Hx Arthritis: Yes (knees arms hands) Hx Psychiatric Treatment: Yes (anxiety, DEPRESSION) Hx Asthma: No Hx COPD: No Additional medical history: psoriasis - Surgical History Hx Appendectomy: Yes Additional Surgical History: - Social History Smoking Status: Current Some Day Smoker Substance Use Type: Prescribed - Medications Home Medications: Home Medications Medication Instructions Recorded Confirmed Last Taken Type FLUoxetine [PROzac] 20 mg PO QDAY 06/22/15 11/05/16 1 Day Ago History Famotidine [Pepcid] 20 mg PO BID #60 tablet 11/07/16 Unknown Rx Nadolol [Corgard] 20 mg PO QDAY #30 tablet 11/07/16 Unknown Rx QUEtiapine [SEROquel] 25 mg PO QHS #30 tablet 11/07/16 Unknown Rx ED Review of Systems ROS: Stated complaint: ABD PAIN Other details as noted in HPI Comment: All other systems reviewed and negative Constitutional: denies: chills, fever Eyes: denies: eye pain, eye discharge, vision change ENT: denies: ear pain, throat pain Respiratory: denies: cough, shortness of breath, wheezing Cardiovascular: denies: chest pain, palpitations Gastrointestinal: abdominal pain, nausea, vomiting Genitourinary: denies: urgency, dysuria, discharge Musculoskeletal: back pain. denies: arthralgia Skin: denies: rash, lesions Neurological: denies: headache, weakness, paresthesias Physical Exam - Physical Exam Vital Signs: Vital Signs 11/12/16 08:47 Temperature 98.9 F Pulse Rate 113 H Respiratory 19 Rate Blood Pressure 111/78 O2 Sat by Pulse 99 Oximetry Physical Exam: GENERAL: The patient is well-developed well-nourished. HEENT: Normocephalic. Atraumatic. Extraocular motions are intact. Patient has moist mucous membranes. Pupils equal reactive to light bilaterally. NECK: Supple. Trachea is midline. CHEST/LUNGS: Coarse breath sounds throughout the chest. Tachypnea or accessory muscle use. There is no respiratory distress noted. HEART/CARDIOVASCULAR: Regular. There is mild tachycardia. There is no gallop rub or murmur. ABDOMEN: Abdomen is soft. There is generalized tenderness palpation of the abdomen. No guarding rebound tenderness. The abdomen is tight but not rigid. Patient has normal bowel sounds. There is moderate abdominal distention. SKIN: Skin is warm and dry. NEURO: The patient is awake, alert, and oriented. The patient is cooperative. The patient has no focal neurologic deficits. The patient has normal speech. MUSCULOSKELETAL: There is no tenderness or deformity. There is no limitation range of motion. There is no evidence of acute injury. ED Course Vital Signs 11/12/16 08:47 Temperature 98.9 F Pulse Rate 113 H Respiratory 19 Rate Blood Pressure 111/78 O2 Sat by Pulse 99 Oximetry ED Medical Decision Making - Lab Data Result diagrams: 11/12/16 09:03 11/12/16 09:03 - Radiology Data Radiology results: report reviewed, image reviewed interpreted by me: Abdominal x-ray does not show any acute process. Abdominal ultrasound shows a thickened gallbladder wall with chronic gallstone. Moderate ascites that are not present on the ultrasound from 2014. Fatty liver. - Medical Decision Making 36-year-old female presents emergency Department with some progressive abdominal pain and abdominal distention. She has a history of cirrhosis and ascites. She had 5.8 L removed about 6 or 7 days ago and it appears that the fluid has returned. Labs show elevated bilirubin. Vital signs stable. There is some mild tachycardia. Patient is afebrile. She was given some pain medication without much relief. Abdominal ultrasound shows a moderate amount of ascites has reaccumulated. She will be admitted to hospital for further evaluation, possible GI consultation and possible abdominal paracentesis. Hospitalist contacted. - Differential Diagnosis cirrhosis, malignancy, ascites, colitis Critical Care Time: No Critical care attestation.: If time is entered above; I have spent that time in minutes in the direct care of this critically ill patient, excluding procedure time. ED Disposition Clinical Impression: Ascites Qualifiers: Ascites type: due to alcoholic cirrhosis Qualified Code(s): K70.31 - Alcoholic cirrhosis of liver with ascites Abdominal pain Qualifiers: Abdominal location: generalized Qualified Code(s): R10.84 - Generalized abdominal pain Cirrhosis of liver Qualifiers: Hepatic cirrhosis type: alcoholic cirrhosis Ascites presence: with ascites Qualified Code(s): K70.31 - Alcoholic cirrhosis of liver with ascites Disposition: OP ADMITTED IP TO THIS HOSP Is pt being admited?: Yes Condition: Stable Instructions: Abdominal Pain (ED) Referrals: PRIMARY CARE, [Primary Care Provider] - 3-5 Days Time of Disposition: 12:47
--- NOTE | 2016-11-12 11:17 | XRay Report ---
ABDOMEN RADIOGRAPHS INDICATION: Abdominal pain. COMPARISON: None similar. FINDINGS: Frontal abdominal radiographs demonstrate nonobstructive bowel gas pattern without focal suspicious calcifications, pneumatosis or pneumoperitoneum. Mildly bulging flanks not excluded for ascites. Clear visualized lung bases. Few extrinsic clothing artifacts. Intact bones. CONCLUSION: No acute radiographic abnormality, though some ascites not excluded in this patient status post recent paracentesis, as described. Please correlate. Thank you for the opportunity to participate in this patient's care.
--- NOTE | 2016-11-12 12:17 | Ultrasound Report ---
Complete abdominal ultrasound: Abdominal pain. The patient has a moderate volume of ascites. The liver is slightly echogenic. No focal lesion. The spleen is grossly normal. The pancreas is inadequately visualized for evaluation. The gallbladder wall is thick measuring approximately 4.6 mm. There is at least one calculus present. The CBD width is 3.6 mm. The right renal length is 10.3 cm and the left renal length is 10.5 cm. Both kidneys are generally unremarkable. The transverse diameter of the proximal abdominal aorta is 2.4 cm. On a prior CT scan in 2013 a gallstone was present however the gallbladder hough are not thickened. The liver is fatty at that time. Impressions: 1. Thickened gallbladder wall with chronic gallstone. 2. Moderate ascites not present in 2014. 3. Fatty liver.
[2016-11-12 12:26] VITALS: BP 106/71
--- NOTE | 2016-11-12 12:40 | Admit Criteria Form ---
Admission Criteria Documentation: ABDOMINAL PAIN Clinical Indications for Admission to Inpatient Care (Place 'X' for any and all applicable criteria): Admission is indicated for ANY ONE of the following(1)(2)(3)(4)(5): [X]I. Inpatient admission required rather than observation care (Also use Abdominal Pain: Observation Care, as appropriate) because of ANY ONE of the following: [ ]a) Severe pain requiring acute inpatient management [ ]b) Identification of etiology/finding that requires inpatient care (eg, aortic dissection, free air) [ ]c) Absent bowel sounds with complete ileus(6) [ ]d) Suspected toxic megacolon [ ]e) Severe electrolyte abnormalities requiring inpatient care [ ]f) High fever or infection requiring inpatient admission as indicated by ANY ONE of following(7)(8): [ ] i) Appropriate outpatient or observational care antimicrobial treatment unavailable, not effective, or not feasible [ ] ii) Documented bacteremia [ ] iii) Temperature > 104.9 degrees F (oral) [ ] iv) T >103.1 F (oral) or < 96.8 F(rectal) that does not respond to all emergency treatment measures [ ]g) Signs of intestinal obstruction [B] [ ]h) Hemodynamic instability [ ]i) IV fluid to replace significant ongoing losses (greater than 3 L/m2 per day) (12)(13) [ ]j) Percutaneous or open drainage (eg, abscess, biliary tract ) procedures [ ]k) Parenteral nutrition regimen that must be implemented on inpatient basis [X ]l) Other condition,treatment or monitoring requiring inpatient admission. [ ]II. Peritoneal signs present [ ]III. Surgery needed that cannot be performed on an ambulatory basis. [ ]IV. Evaluation requires patient to not eat or drink for extended period ( eg, more than 24 hours). [ ]V. Contraindications and/or Inappropriate clinical situations for Observational Care in patients with abdominal pain, when ANY ONE of the following is required: [ ]a) Thorough evaluation is required to prevent catastrophic events due to delays in diagnosing (e.g.Mesenteric ischemia) 1,3 [ ]b) Patient with severe pathology or with chronic symptoms unlikely to improve in the ED stay (3) [ ]. General contraindications and/or Inappropriate clinical situations for Observational Care in patients with abdominal pain, when ANY ONE of the following is required: [ ]a) Prediction of prolongation of LOS based on ANY ONE of the following may be considered as a contraindication for observational care 2, 3, 4, 5, 6, 7, 8, 9, 10, 11 [ ]i) Age > 65 yrs. [ ]ii) Patient arriving by ambulance [ ]iii) Patient with high acuity [ ]iv) Patient requiring vital sign monitoring [ ]v) Patient on IV medication [ ]b) Systolic blood pressures 180mmHg 3,12 [ ]c) Patient with altered mental status including delirium and other alteration of consciousness, (3) [ ]d) Patient whose discharge disposition will be to a [facility] home or rehabilitation home should not be managed in Emergency Department Observation Unit. CMS rule requires 3 days hospital stay before such placement.3,13 [ ]e) Patient with failure to thrive due to broad array of etiologies 3,16,17 [ ]f) Inability to ambulate 3,14 Extended stay beyond goal length of stay may be needed for(2)(3): [ ]a) Persistent abdominal pain with suspected intra-abdominal process [ ]b) Diagnosed condition requiring continued stay (e.g., pancreatitis, complicated diverticulitis) [ ]c) Surgery (e.g., colectomy) The original [facility] content created by [employer] has been revised. The portions of the content which have been revised are identified through the use of italic text or in bold, and [facility] has neither reviewed nor approved the modified material.All other unmodified content is copyright [facility]. Please see references footnoted in the original [facility] edition 2016 Admission Criteria Met: Yes
--- NOTE | 2016-11-12 13:04 | History and Physical Report ---
Medications and Allergies Allergies Allergy/AdvReac Type Severity Reaction Status Date / Time No Known Allergies Allergy Verified 11/12/16 08:43 Home Medications Medication Instructions Recorded Confirmed Last Taken Type FLUoxetine [PROzac] 20 mg PO QDAY 06/22/15 11/05/16 1 Day Ago History Famotidine [Pepcid] 20 mg PO BID #60 tablet 11/07/16 Unknown Rx Nadolol [Corgard] 20 mg PO QDAY #30 tablet 11/07/16 Unknown Rx QUEtiapine [SEROquel] 25 mg PO QHS #30 tablet 11/07/16 Unknown Rx Exam - Constitutional Vitals: Temp Pulse Resp BP Pulse Ox 98.9 F 105 H 16 106/71 99 11/12/16 08:47 11/12/16 11:51 11/12/16 11:51 11/12/16 12:11 11/12/16 12:11 Results - Labs CBC & Chem 7: 11/12/16 09:03 11/12/16 09:03 Labs: Abnormal lab results 11/12/16 11/12/16 Range/Units 09:03 09:03 RBC 3.52 L (3.65-5.03) M/mm3 MCV 103 H (79-97) fl MCH 34 H (28-32) pg [facility] % (Auto) 13.0 H (0.0-7.3) % [facility] # 1.0 H (0.0-0.8) K/mm3 Sodium 134 L (137-145) mmol/L Chloride 97.7 L (98-107) mmol/L Creatinine 0.4 L (0.7-1.2) mg/dL Glucose 104 H (65-100) mg/dL Calcium 8.0 L (8.4-10.2) mg/dL Total Bilirubin 2.2 H (0.1-1.2) mg/dL Alkaline Phosphatase 184 H (35-129) units/L Total Protein 6.0 L (6.3-8.2) g/dL Albumin 2.0 L (3.9-5) g/dL
--- NOTE | 2016-11-12 13:43 | Consultation ---
Medications and Allergies Allergies Allergy/AdvReac Type Severity Reaction Status Date / Time No Known Allergies Allergy Verified 11/12/16 08:43 Home Medications Medication Instructions Recorded Confirmed Last Taken Type FLUoxetine [PROzac] 20 mg PO QDAY 06/22/15 11/05/16 1 Day Ago History Famotidine [Pepcid] 20 mg PO BID #60 tablet 11/07/16 Unknown Rx Nadolol [Corgard] 20 mg PO QDAY #30 tablet 11/07/16 Unknown Rx QUEtiapine [SEROquel] 25 mg PO QHS #30 tablet 11/07/16 Unknown Rx Exam - Constitutional Vitals: Temp Pulse Resp BP Pulse Ox 98.9 F 105 H 16 106/71 99 11/12/16 08:47 11/12/16 11:51 11/12/16 11:51 11/12/16 12:11 11/12/16 12:11 Results - Labs CBC & Chem 7: 11/12/16 09:03 11/12/16 09:03 Labs: Abnormal lab results 11/12/16 11/12/16 Range/Units 09:03 09:03 RBC 3.52 L (3.65-5.03) M/mm3 MCV 103 H (79-97) fl MCH 34 H (28-32) pg [place] % (Auto) 13.0 H (0.0-7.3) % [place] # 1.0 H (0.0-0.8) K/mm3 Sodium 134 L (137-145) mmol/L Chloride 97.7 L (98-107) mmol/L Creatinine 0.4 L (0.7-1.2) mg/dL Glucose 104 H (65-100) mg/dL Calcium 8.0 L (8.4-10.2) mg/dL Total Bilirubin 2.2 H (0.1-1.2) mg/dL Alkaline Phosphatase 184 H (35-129) units/L Total Protein 6.0 L (6.3-8.2) g/dL Albumin 2.0 L (3.9-5) g/dL
[2016-11-12] MEDS ORDERED: PERCOCET 5/325 ONE (15:05)
[2016-11-12] MEDS ORDERED: PERCOCET 5/325 PO ONE (15:08)
== END 2016-11-12 15:16 | disposition home or self-care (01) ==
LOC: ED 08:40
DX: K70.31 Alcoholic cirrhosis of liver with ascites (principal); R10.84 Generalized abdominal pain; I10 Essential (primary) hypertension; F32.9 Major depressive disorder, single episode, unspecified; F41.9 Anxiety disorder, unspecified; M17.0 Bilateral primary osteoarthritis of knee; F17.200 Nicotine dependence, unspecified, uncomplicated
CPT/HCPCS: 36415; 74020; 76700; 80053; 83690; 85025; 96374; 99285; J3010

== ENCOUNTER 2017-08-31 13:55 | Emergency (ER) | payer MEDICAID ==
[2017-08-31 14:38] VITALS: BP 125/74
[2017-08-31] MEDS ORDERED: TORADOL IM ONE (16:07)
--- NOTE | 2017-08-31 16:11 | Emergency Department Report ---
ED General Adult HPI - General Chief complaint: Pain General Stated complaint: LEG PAIN Time Seen by Provider: 08/31/17 16:05 Source: patient Mode of arrival: Ambulatory Limitations: No Limitations - History of Present Illness Initial comments: Patient is 47 years old female history of liver cirrhosis. Patient presented to the ER complaining of generalized body pain for the last few days. Patient denied any fever, nausea or vomiting. No chest pain or shortness of breath. Patient denied any abdominal pain. Patient just kept asking that she wants something to help with her pain. - Related Data Home Medications Medication Instructions Recorded Confirmed Last Taken FLUoxetine [PROzac] 20 mg PO QDAY 06/22/15 05/23/17 1 Day Ago ~06/21/15 Previous Rx's Medication Instructions Recorded Last Taken Type Famotidine [Pepcid] 20 mg PO BID #60 tablet 11/07/16 Unknown Rx Nadolol [Corgard] 20 mg PO QDAY #30 tablet 11/07/16 Unknown Rx QUEtiapine [SEROquel] 25 mg PO QHS #30 tablet 11/07/16 Unknown Rx Lactulose [Kristalose] 10 gm PO DAILY #30 packet 11/12/16 Unknown Rx oxyCODONE /ACETAMINOPHEN [Percocet 1 tab PO BID PRN #10 tablet 05/24/17 Unknown Rx 5/325 mg] Allergies Allergy/AdvReac Type Severity Reaction Status Date / Time No Known Allergies Allergy Verified 11/12/16 08:43 ED Review of Systems ROS: Stated complaint: LEG PAIN Other details as noted in HPI Comment: All other systems reviewed and negative Constitutional: denies: chills, fever Respiratory: denies: cough, orthopnea Cardiovascular: denies: chest pain, palpitations, dyspnea on exertion Gastrointestinal: denies: abdominal pain, nausea, vomiting, diarrhea, constipation Neurological: denies: headache, weakness, numbness, paresthesias ED Past Medical Hx - Past Medical History Hx Hypertension: Yes Hx Congestive Heart Failure: No Hx Diabetes: No Hx Liver Disease: Yes (CIRRHOSIS) Hx Arthritis: Yes (knees arms hands) Hx Psychiatric Treatment: Yes (anxiety, DEPRESSION) Hx Asthma: No Hx COPD: No Additional medical history: psoriasis - Surgical History Past Surgical History?: Yes Hx Appendectomy: Yes Additional Surgical History: - Social History Smoking Status: Current Every Day Smoker Substance Use Type: Alcohol, Marijuana - Medications Home Medications: Home Medications Medication Instructions Recorded Confirmed Last Taken Type FLUoxetine [PROzac] 20 mg PO QDAY 06/22/15 05/23/17 1 Day Ago History ~06/21/15 Famotidine [Pepcid] 20 mg PO BID #60 tablet 11/07/16 05/23/17 Unknown Rx Nadolol [Corgard] 20 mg PO QDAY #30 tablet 11/07/16 05/23/17 Unknown Rx QUEtiapine [SEROquel] 25 mg PO QHS #30 tablet 11/07/16 05/23/17 Unknown Rx Lactulose [Kristalose] 10 gm PO DAILY #30 packet 11/12/16 05/23/17 Unknown Rx oxyCODONE /ACETAMINOPHEN [Percocet 1 tab PO BID PRN #10 tablet 05/24/17 Unknown Rx 5/325 mg] ED Physical Exam - General Limitations: No Limitations General appearance: alert, in no apparent distress - Head Head exam: Present: atraumatic, normocephalic, normal inspection - Eye Eye exam: Present: normal appearance, PERRL - ENT ENT exam: Present: normal exam, normal orophraynx, mucous membranes moist - Neck Neck exam: Present: normal inspection, full ROM. Absent: tenderness - Respiratory Respiratory exam: Present: normal lung sounds bilaterally. Absent: respiratory distress, wheezes, rales, rhonchi, stridor, chest wall tenderness, accessory muscle use, decreased breath sounds, prolonged expiratory - Cardiovascular Cardiovascular Exam: Present: regular rate, normal rhythm, normal heart sounds - GI/Abdominal GI/Abdominal exam: Present: soft, normal bowel sounds. Absent: distended, tenderness, guarding, rebound, rigid, organomegaly, mass, bruit, pulsatile mass , hernia - Extremities Exam Extremities exam: Present: normal inspection, full ROM, normal capillary refill. Absent: tenderness, pedal edema, joint swelling, calf tenderness - Back Exam Back exam: Present: normal inspection, full ROM. Absent: tenderness, CVA tenderness (R), CVA tenderness (L), muscle spasm, paraspinal tenderness - Neurological Exam Neurological exam: Present: alert, oriented X3, CN II-XII intact, normal gait - Skin Skin exam: Present: warm, intact, normal color. Absent: cyanosis, diaphoretic ED Course Vital Signs 08/31/17 08/31/17 14:35 19:05 Temperature 97.4 F L 97.4 F L Pulse Rate 94 H 94 H Respiratory 16 16 Rate Blood Pressure 125/74 O2 Sat by Pulse 100 Oximetry - Reevaluation(s) Reevaluation #1: 09/01/17 10:17 Patient signed out to my colleague Dr. Herndon. ED Medical Decision Making - Lab Data Result diagrams: 08/31/17 16:11 08/31/17 16:11 Critical care attestation.: If time is entered above; I have spent that time in minutes in the direct care of this critically ill patient, excluding procedure time. ED Disposition Clinical Impression: Alcohol intoxication Qualifiers: Complication of substance-induced condition: with unspecified complication Qualified Code(s): F10.929 - Alcohol use, unspecified with intoxication, unspecified Disposition: DC-01 TO HOME OR SELFCARE Is pt being admited?: No Condition: Stable Instructions: Alcohol Intoxication (ED), Abuse of Alcohol (ED) Additional Instructions: Consider going to [facility] and seeing an addiction medicine specialist. Referrals: PRIMARY CARE, [Primary Care Provider] - 3-5 Days
[2017-08-31 16:28] LABS: Basophils # (Auto) 0.1 K/mm3 (0.0-0.1); Eosinophils # (Auto) 0.3 K/mm3 (0.0-0.4); Eosinophils % (Auto) 4.7 % (0.0-4.3); Hematocrit 34.2 % (30.3-42.9); Lymphocytes # (Auto) 2.4 K/mm3 (1.2-5.4); Lymphocytes % (Auto) 36.9 % (13.4-35.0); Mean Corpuscular HGB Conc 32 % (30-34); Mean Corpuscular Hemoglobin 26 pg (28-32); Mean Corpuscular Volume 81 fl (79-97); Monocytes # (Auto) 0.9 K/mm3 (0.0-0.8); Monocytes % (Auto) 13.8 % (0.0-7.3); Platelet Count 161 K/mm3 (140-440); Red Blood Count 4.22 M/mm3 (3.65-5.03)
[2017-08-31 16:30] LABS: Red Cell Distribution Width 21.9 % (13.2-15.2)
[2017-08-31 16:45] LABS: Alanine Aminotransferase 22 units/L (7-56); Albumin 3.5 g/dL (3.9-5); BUN/Creatinine Ratio 8; Blood Urea Nitrogen 3 mg/dL (7-17); Calcium 7.9 mg/dL (8.4-10.2); Hemolysis Index 0
[2017-08-31] MEDS ORDERED: VITAMIN B-1 100 MG, FOLVITE 1 MG, INFUVITE 10 ML in NACL 0.9% 1000 ML 1,000 ML IV ONE (16:57)
--- NOTE | 2017-08-31 17:48 | Emergency Department Report ---
ED General Adult HPI - General Chief complaint: Pain General Stated complaint: LEG PAIN Time Seen by Provider: 08/31/17 16:05 Source: patient Mode of arrival: Ambulatory Limitations: No Limitations - History of Present Illness Initial comments: This is a patient with known EtOH use disorder who comes in today complaining of body aches and pain in the legs bilaterally for 1 month. She claims to have stopped drinking alcohol 9 months ago however her blood alcohol level is elevated today. She also has a history of hypertension and arthritis. She is asking for pain medicine at this time. -: Gradual Severity scale (0 -10): 8 - Related Data Home Medications Medication Instructions Recorded Confirmed Last Taken FLUoxetine [PROzac] 20 mg PO QDAY 06/22/15 05/23/17 1 Day Ago ~06/21/15 Previous Rx's Medication Instructions Recorded Last Taken Type Famotidine [Pepcid] 20 mg PO BID #60 tablet 11/07/16 Unknown Rx Nadolol [Corgard] 20 mg PO QDAY #30 tablet 11/07/16 Unknown Rx QUEtiapine [SEROquel] 25 mg PO QHS #30 tablet 11/07/16 Unknown Rx Lactulose [Kristalose] 10 gm PO DAILY #30 packet 11/12/16 Unknown Rx oxyCODONE /ACETAMINOPHEN [Percocet 1 tab PO BID PRN #10 tablet 05/24/17 Unknown Rx 5/325 mg] Allergies Allergy/AdvReac Type Severity Reaction Status Date / Time No Known Allergies Allergy Verified 11/12/16 08:43 ED Review of Systems ROS: Stated complaint: LEG PAIN Other details as noted in HPI Comment: All other systems reviewed and negative Constitutional: denies: chills, fever Eyes: as per HPI ENT: as per HPI Respiratory: see HPI Cardiovascular: as per HPI Endocrine: see HPI Gastrointestinal: as per HPI Genitourinary: as per HPI Musculoskeletal: as per HPI Skin: as per HPI Neurological: as per HPI Psychiatric: as per HPI Hematological/Lymphatic: as per HPI ED Past Medical Hx - Past Medical History Hx Hypertension: Yes Hx Congestive Heart Failure: No Hx Diabetes: No Hx Liver Disease: Yes (CIRRHOSIS) Hx Arthritis: Yes (knees arms hands) Hx Psychiatric Treatment: Yes (anxiety, DEPRESSION) Hx Asthma: No Hx COPD: No Additional medical history: psoriasis - Surgical History Past Surgical History?: Yes Hx Appendectomy: Yes Additional Surgical History: - Social History Smoking Status: Current Every Day Smoker Substance Use Type: Alcohol, Marijuana - Medications Home Medications: Home Medications Medication Instructions Recorded Confirmed Last Taken Type FLUoxetine [PROzac] 20 mg PO QDAY 06/22/15 05/23/17 1 Day Ago History ~06/21/15 Famotidine [Pepcid] 20 mg PO BID #60 tablet 11/07/16 05/23/17 Unknown Rx Nadolol [Corgard] 20 mg PO QDAY #30 tablet 11/07/16 05/23/17 Unknown Rx QUEtiapine [SEROquel] 25 mg PO QHS #30 tablet 11/07/16 05/23/17 Unknown Rx Lactulose [Kristalose] 10 gm PO DAILY #30 packet 11/12/16 05/23/17 Unknown Rx oxyCODONE /ACETAMINOPHEN [Percocet 1 tab PO BID PRN #10 tablet 05/24/17 Unknown Rx 5/325 mg] ED Physical Exam - General Limitations: No Limitations General appearance: alert, in no apparent distress ED Course Vital Signs 08/31/17 14:35 Temperature 97.4 F L Pulse Rate 94 H Respiratory 16 Rate Blood Pressure 125/74 O2 Sat by Pulse 100 Oximetry - Reevaluation(s) Reevaluation #1: 08/31/17 19:10 The patient had a banana bag in [employer] area. I ordered another liter of normal saline. After discussing with the patient that I would not give her any narcotic pain medication, the patient said that she wanted to leave. After review of her blood work I see no reason to hold her any longer. I will go ahead and discharge the patient. She does have family present and they will take her. ED Medical Decision Making - Lab Data Result diagrams: 08/31/17 16:11 08/31/17 16:11 Critical care attestation.: If time is entered above; I have spent that time in minutes in the direct care of this critically ill patient, excluding procedure time. ED Disposition Clinical Impression: Alcohol intoxication Qualifiers: Complication of substance-induced condition: with unspecified complication Qualified Code(s): F10.929 - Alcohol use, unspecified with intoxication, unspecified Disposition: DC-01 TO HOME OR SELFCARE Is pt being admited?: No Does the pt Need Aspirin: No Condition: Stable Instructions: Alcohol Intoxication (ED), Abuse of Alcohol (ED) Additional Instructions: Consider going to [facility] and seeing an addiction medicine specialist. Referrals: PRIMARY CARE,MD [Primary Care Provider] - 3-5 Days
[2017-08-31] MEDS ORDERED: NACL 0.9% 1000 ML 1,000 ML IV ONE (18:38)
== END 2017-08-31 19:05 | disposition home or self-care (01) ==
LOC: ED 13:55
DX: F10.929 Alcohol use, unspecified with intoxication, unspecified (principal); I10 Essential (primary) hypertension; K74.60 Unspecified cirrhosis of liver; F32.9 Major depressive disorder, single episode, unspecified; F41.9 Anxiety disorder, unspecified
CPT/HCPCS: 36415; 80053; 85025; 96365; 96372; 99283; G0480; J1885; J3411; J7030; 80320

== ENCOUNTER 2017-09-02 07:01 | Inpatient (IN) | payer MEDICAID ==
[2017-09-02] MEDS ORDERED: NACL 0.9% 1000 ML 1,000 ML IV ONE ×2 (07:32→08:42)
[2017-09-02 08:29] LABS: Basophils # (Auto) 0.2 K/mm3 (0.0-0.1); Basophils % (Auto) 0.8 % (0.0-1.8); Eosinophils % (Auto) 0.2 % (0.0-4.3); Lymphocytes # (Auto) 3.5 K/mm3 (1.2-5.4); Lymphocytes % (Auto) 17.6 % (13.4-35.0); Mean Corpuscular HGB Conc 30 % (30-34); Mean Corpuscular Volume 85 fl (79-97); Monocytes # (Auto) 1.7 K/mm3 (0.0-0.8); Monocytes % (Auto) 8.3 % (0.0-7.3); Platelet Count 238 K/mm3 (140-440); Red Blood Count 2.17 M/mm3 (3.65-5.03)
[2017-09-02 08:34] LABS: Mean Corpuscular Hemoglobin 26 pg (28-32); Red Cell Distribution Width 21.9 % (13.2-15.2)
[2017-09-02 08:36] LABS: Hematocrit 18.5 % (30.3-42.9); Hemoglobin 5.6 gm/dl (10.1-14.3)
[2017-09-02 08:39] LABS: INR 1.39 (0.87-1.13)
[2017-09-02 08:40] LABS: Partial Thromboplastin Time 38.2 Sec. (24.2-36.6)
[2017-09-02] MEDS ORDERED: NACL 0.9% 500 ML 500 ML IV ONE ×2 (08:40→09:43)
[2017-09-02] MEDS ORDERED: MORPHINE IV ONE (08:42)
[2017-09-02] MEDS ORDERED: ZOFRAN IV ONE ×2 (08:42→15:48)
[2017-09-02] MEDS ORDERED: ZOFRAN ONE ×2 (08:44→15:17)
[2017-09-02 08:45] LABS: Alanine Aminotransferase 15 units/L (7-56); Albumin 2.7 g/dL (3.9-5); BUN/Creatinine Ratio 28; Blood Urea Nitrogen 17 mg/dL (7-17); Calcium 7.3 mg/dL (8.4-10.2); Hemolysis Index 1; Lipase 26 units/L (13-60)
[2017-09-02] MEDS ORDERED: MORPHINE ONE (08:45)
--- NOTE | 2017-09-02 08:49 | Emergency Department Report ---
ED GI Bleed HPI - General Chief complaint: Nausea/Vomiting/Diarrhea Stated complaint: N/V Time Seen by Provider: 09/02/17 08:08 Source: patient, EMS Mode of arrival: Ambulatory Limitations: No Limitations - History of Present Illness Initial comments: Patient is 47 years old female history of liver cirrhosis secondary to alcohol abuse, presented with 2 day history of vomiting blood and passing black tarry stool. Patient also complaining MID epigastric pain that does not radiate. Patient denied any fever. No chest pain or shortness of breath. Patient had similar symptoms a few months ago with hemoglobin of 4.6 at that time. MD complaint: blood streaked emesis, melena -: days(s) Radiation: epigastric Consistency: constant Context: history of GI bleed, liver disease, alcohol abuse Associated Symptoms: nausea, vomiting - Related Data Home Medications Medication Instructions Recorded Confirmed Last Taken No Known Home Medications [No 09/02/17 09/02/17 Unknown Reported Home Medications] Allergies Allergy/AdvReac Type Severity Reaction Status Date / Time No Known Allergies Allergy Verified 11/12/16 08:43 ED Review of Systems ROS: Stated complaint: N/V Other details as noted in HPI Comment: All other systems reviewed and negative Constitutional: denies: chills, fever Respiratory: denies: cough, orthopnea, shortness of breath, SOB with exertion Cardiovascular: palpitations. denies: chest pain Gastrointestinal: abdominal pain, nausea, vomiting, hematemesis, melena. denies : diarrhea, constipation, hematochezia Genitourinary: denies: urgency ED Past Medical Hx - Past Medical History Previous Medical History?: Yes Hx Hypertension: Yes Hx Congestive Heart Failure: No Hx Diabetes: No Hx Liver Disease: Yes (CIRRHOSIS) Hx Arthritis: Yes (knees arms hands) Hx Psychiatric Treatment: Yes (anxiety, DEPRESSION) Hx Asthma: No Hx COPD: No Additional medical history: psoriasis - Surgical History Past Surgical History?: Yes Hx Appendectomy: Yes Additional Surgical History: - Social History Smoking Status: Former Smoker Substance Use Type: Alcohol, Non Opiate Pain - Medications Home Medications: Home Medications Medication Instructions Recorded Confirmed Last Taken Type No Known Home Medications [No 09/02/17 09/02/17 Unknown History Reported Home Medications] ED Physical Exam - General Limitations: No Limitations General appearance: alert, in no apparent distress - Head Head exam: Present: atraumatic, normocephalic, normal inspection - Eye Eye exam: Present: normal appearance, PERRL - ENT ENT exam: Present: mucous membranes dry - Neck Neck exam: Present: normal inspection, full ROM. Absent: tenderness, meningismus, lymphadenopathy - Respiratory Respiratory exam: Present: normal lung sounds bilaterally. Absent: respiratory distress, wheezes, rales, rhonchi, chest wall tenderness, accessory muscle use, decreased breath sounds, prolonged expiratory - Cardiovascular Cardiovascular Exam: Present: tachycardia - GI/Abdominal GI/Abdominal exam: Present: soft, tenderness, normal bowel sounds. Absent: guarding, rebound, rigid, organomegaly, mass, bruit, pulsatile mass, hernia - Extremities Exam Extremities exam: Present: normal inspection, full ROM, normal capillary refill - Back Exam Back exam: Present: normal inspection, full ROM. Absent: CVA tenderness (R), CVA tenderness (L) - Neurological Exam Neurological exam: Present: alert, oriented X3, CN II-XII intact, normal gait - Skin Skin exam: Present: warm, intact, normal color. Absent: cyanosis ED Course Vital Signs 09/02/17 09/02/17 09/02/17 07:27 11:10 11:25 Temperature 97 F L 98.9 F 98.9 F Pulse Rate 144 H 105 H 108 H Respiratory 24 23 21 Rate Blood Pressure 80/47 93/50 105/56 O2 Sat by Pulse 100 99 98 Oximetry ED Medical Decision Making - Lab Data Result diagrams: 09/02/17 08:08 09/02/17 08:08 - Medical Decision Making Discussed with Chhaya Marcos, nurse practitioner was Dr. Jeromy Shell, from gastroenterology. She advised to keep patient nothing by mouth for possible endoscopy this morning after H&H increase. I discussed his doctor Ag, I presented the patient to him, he agreed to admit the patient to his service. Critical Care Time: Yes Critical care time in (mins) excluding proc time.: 65 Critical care attestation.: If time is entered above; I have spent that time in minutes in the direct care of this critically ill patient, excluding procedure time. ED Disposition Clinical Impression: Acute GI hemorrhage Disposition: 09 OP ADMIT IP TO THIS HOSP Is pt being admited?: Yes Condition: Stable
[2017-09-02] MEDS ORDERED: PROTONIX IV NR (09:00)
--- NOTE | 2017-09-02 09:37 | History and Physical Report ---
History of Present Illness Date of examination: 09/02/17 Date of admission: 09/02/17 Chief complaint: Hematemesis, coffee-ground emesis, nausea and vomiting for the last 2 days History of present illness: Very pleasant 47-year-old female patient well known to our service, significant past medical history of alcoholic liver cirrhosis, multiple episodes of variceal bleeding status post banding, multiple blood transfusions in the past, presented to the emergency room with history of hematemesis coffee ground emesis and black tarry stool for the last 2 days. He isn't also complains of generalized weakness, denies chest pain or shortness of breath Initial evaluation is consistent with hypotension possibly secondary to hypovolemia and bleeding Severe anemia with hemoglobin of 5.4 Patient continues to drink alcohol Past History Past Medical History: anemia, hypertension, liver disease, other (cirrhosis with liver, anxiety, depression) Past Surgical History: appendectomy, , Other (EGD/status post variceal banding) Social history: lives with family, smoking (former smoker), alcohol abuse, full code. denies: IV drug use Family history: hypertension Medications and Allergies Allergies Allergy/AdvReac Type Severity Reaction Status Date / Time No Known Allergies Allergy Verified 11/12/16 08:43 Home Medications Medication Instructions Recorded Confirmed Last Taken Type No Known Home Medications [No 09/02/17 09/02/17 Unknown History Reported Home Medications] Active Meds: Active Medications Sodium Chloride (Nacl 0.9% 1000 Ml) 1,000 mls @ 250 mls/hr IV ONCE ONE Stop: 09/02/17 11:31 Sodium Chloride (Nacl 0.9% 1000 Ml) 1,000 mls @ 999 mls/hr IV BOLUS ONE Stop: 09/02/17 09:42 Last Admin: 09/02/17 09:05 Dose: 999 mls/hr Octreotide Acetate 500 mcg/ (Sodium Chloride) 101 mls @ 5.05 mls/hr IV TITR FOREIGN ; 25 MCG/HR PRN Reason: Protocol Pantoprazole Sodium 80 mg/ (Sodium Chloride) 100 mls @ 10 mls/hr IV Q10H FOREIGN PRN Reason: 8 MG/HR Octreotide Acetate (Sandostatin) 25 mcg IV ONCE.ED NR Stop: 09/02/17 10:00 Pantoprazole Sodium (Protonix) 40 mg IV ONCE.ED NR Stop: 09/02/17 10:00 Review of Systems Constitutional: fatigue, weakness, no weight loss, no weight gain, no fever, no chills Ears, nose, mouth and throat: no nasal congestion, no nasal discharge Cardiovascular: no chest pain, no orthopnea, no palpitations Respiratory: no cough with sputum, no hemoptysis Gastrointestinal: hematemesis, coffee ground emesis, melena, no abdominal pain Musculoskeletal: no myalgias, no arthritis Integumentary: no rash, no lesions Neurological: no paralysis, no seizures, no syncope Psychiatric: no anxiety, no depression Endocrine: no cold intolerance, no heat intolerance Hematologic/Lymphatic: no easy bruising, no easy bleeding Allergic/Immunologic: no urticaria, no allergic rhinitis Exam - Constitutional Vitals: Temp Pulse Resp BP Pulse Ox 97 F L 144 H 24 80/47 100 09/02/17 07:27 09/02/17 07:27 09/02/17 07:27 09/02/17 07:27 09/02/17 07:27 General appearance: Present: mild distress, well-nourished, other (Pale) - EENT Eyes: Present: PERRL. Absent: scleral icterus - Neck Neck: Present: supple, normal ROM - Respiratory Respiratory effort: normal Respiratory: bilateral: diminished, negative: rales, rhonchi, wheezing - Cardiovascular Rhythm: regular Heart Sounds: Present: S1 & S2 - Extremities Extremities: no ischemia, No edema - Abdominal General gastrointestinal: Present: soft, non-tender, non-distended, normal bowel sounds - Integumentary Integumentary: Present: clear, warm - Musculoskeletal Musculoskeletal: strength equal bilaterally - Psychiatric Psychiatric: appropriate mood/affect, cooperative - Neurologic Neurologic: CNII-XII intact, moves all extremities Results - Labs CBC & Chem 7: 09/02/17 08:08 09/02/17 08:08 Labs: Abnormal lab results 09/02/17 09/02/17 09/02/17 Range/Units 08:08 08:08 08:08 WBC 20.0 H (4.5-11.0) K/mm3 RBC 2.17 L (3.65-5.03) M/mm3 Hgb 5.6 L* D (10.1-14.3) gm/dl Hct 18.5 L* D (30.3-42.9) % MCH 26 L (28-32) pg RDW 21.9 H (13.2-15.2) % [place] % (Auto) 8.3 H (0.0-7.3) % [place] # 1.7 H (0.0-0.8) K/mm3 Baso # 0.2 H (0.0-0.1) K/mm3 Seg Neutrophils % 73.1 H (40.0-70.0) % Seg Neutrophils # 14.6 H (1.8-7.7) K/mm3 PT 17.9 H (12.2-14.9) Sec. INR 1.39 H (0.87-1.13) APTT 38.2 H (24.2-36.6) Sec. Potassium 3.3 L (3.6-5.0) mmol/L Chloride 95.9 L (98-107) mmol/L Carbon Dioxide 20 L (22-30) mmol/L Creatinine 0.6 L (0.7-1.2) mg/dL Glucose 150 H (65-100) mg/dL Calcium 7.3 L (8.4-10.2) mg/dL Total Bilirubin 1.40 H (0.1-1.2) mg/dL AST 47 H (5-40) units/L Alkaline Phosphatase 141 H (35-129) units/L Total Protein 6.0 L D (6.3-8.2) g/dL Albumin 2.7 L (3.9-5) g/dL Crossmatch 09/02/17 Range/Units 08:09 WBC (4.5-11.0) K/mm3 RBC (3.65-5.03) M/mm3 Hgb (10.1-14.3) gm/dl Hct (30.3-42.9) % MCH (28-32) pg RDW (13.2-15.2) % [place] % (Auto) (0.0-7.3) % [place] # (0.0-0.8) K/mm3 Baso # (0.0-0.1) K/mm3 Seg Neutrophils % (40.0-70.0) % Seg Neutrophils # (1.8-7.7) K/mm3 PT (12.2-14.9) Sec. INR (0.87-1.13) APTT (24.2-36.6) Sec. Potassium (3.6-5.0) mmol/L Chloride (98-107) mmol/L Carbon Dioxide (22-30) mmol/L Creatinine (0.7-1.2) mg/dL Glucose (65-100) mg/dL Calcium (8.4-10.2) mg/dL Total Bilirubin (0.1-1.2) mg/dL AST (5-40) units/L Alkaline Phosphatase (35-129) units/L Total Protein (6.3-8.2) g/dL Albumin (3.9-5) g/dL Crossmatch See Detail Assessment and Plan --Severe Upper GI bleeding/Possible variceal bleeding IV fluids,octreotide, IV Protonix nothing by mouth status GI consult for possible EGD --Acute blood loss anemia; type and cross, transfuse 2 units of PRBC Closely monitor H&H, transfuse additional 2 units as needed --Hypotension; secondary to hypovolemia and acute blood loss IV fluids, blood transfusion closely monitor --Hypokalemia; replenish per protocol and monitor levels --Alcoholic cirrhosis liver; GI evaluation Closely monitor, tries to quit alcohol intake --Coagulopathy; secondary to cirrhosis, closely monitor vitamin K as needed --History of alcohol abuse; counseling and patient strongly advised to quit alcohol Thiamine and folic acid Patient needs alcohol rehabilitation when medically stable --DVT prophylaxis; SCDs Patient is critically ill Patient's condition and treatment plan discussed in detail with the patient, her over the phone ER physician and the GI nurse practitioner Disposition; admit to ICU, follow GI evaluation and recommendations
--- NOTE | 2017-09-02 09:39 | Gastroenterology Consultation ---
History of Present Illness - Reason for Consult Consult date: 09/02/17 GI bleed Requesting physician: ROLANDO MATAMOROS - History of Present Illness Patient is a 47 y/o female who is previously known to our service from past hospitalizations with a PMH of HTN, arthritis, psoriasis, anxiety/depression, cirrhosis 2/2 ETOH abuse with ascites requiring PRN LVP and esophageal varices ( last EGD 12/2016 showed grade II-III distal esophageal varices requiring banding ) who presented to ED with c/o hematemesis and melena. This morning pt was resting on stretcher in mild distress. A&Ox3 w/o signs of encephalopathy. She reports multiple episodes of vomiting bright red blood and passing black tarry stools over the past 2 days with last episode this am. She also admits to generalized abd pain but denies CP, SOB, dizziness, wt loss, dysphagia, diarrhea , constipation, or hematochezia. She is still actively drinking alcohol with a documented elevated alcohol level on 08/31/2017. No NSAID use or hx of PUD. Past History Past Medical History: arthritis, hypertension, liver disease (cirrhosis with ascites and esophageal varices (s/p banding 12/2016)), other (anxiety, depression, psoriasis) Past Surgical History: appendectomy, , Other (paracentesis) Social history: , smoking, alcohol abuse Medications and Allergies Allergies Allergy/AdvReac Type Severity Reaction Status Date / Time No Known Allergies Allergy Verified 11/12/16 08:43 Home Medications Medication Instructions Recorded Confirmed Last Taken Type FLUoxetine [PROzac] 20 mg PO QDAY 06/22/15 05/23/17 1 Day Ago History ~06/21/15 Famotidine [Pepcid] 20 mg PO BID #60 tablet 11/07/16 05/23/17 Unknown Rx Nadolol [Corgard] 20 mg PO QDAY #30 tablet 11/07/16 05/23/17 Unknown Rx QUEtiapine [SEROquel] 25 mg PO QHS #30 tablet 11/07/16 05/23/17 Unknown Rx Lactulose [Kristalose] 10 gm PO DAILY #30 packet 11/12/16 05/23/17 Unknown Rx oxyCODONE /ACETAMINOPHEN [Percocet 1 tab PO BID PRN #10 tablet 05/24/17 Unknown Rx 5/325 mg] Active Meds: Active Medications Sodium Chloride (Nacl 0.9% 1000 Ml) 1,000 mls @ 250 mls/hr IV ONCE ONE Stop: 09/02/17 11:31 Sodium Chloride (Nacl 0.9% 1000 Ml) 1,000 mls @ 999 mls/hr IV BOLUS ONE Stop: 09/02/17 09:42 Last Admin: 09/02/17 09:05 Dose: 999 mls/hr Octreotide Acetate 500 mcg/ (Sodium Chloride) 101 mls @ 5.05 mls/hr IV TITR FOREIGN ; 25 MCG/HR PRN Reason: Protocol Pantoprazole Sodium 80 mg/ (Sodium Chloride) 100 mls @ 10 mls/hr IV Q10H FOREIGN PRN Reason: 8 MG/HR Octreotide Acetate (Sandostatin) 25 mcg IV ONCE.ED NR Stop: 09/02/17 10:00 Pantoprazole Sodium (Protonix) 40 mg IV ONCE.ED NR Stop: 09/02/17 10:00 Review of Systems - Review of Systems All systems: negative Gastrointestinal: abdominal pain, hematemesis, melena Exam - Constitutional Vital Signs: Temp Pulse Resp BP Pulse Ox 97 F L 144 H 24 80/47 100 09/02/17 07:27 09/02/17 07:27 09/02/17 07:27 09/02/17 07:27 09/02/17 07:27 General appearance: mild distress - EENT Eyes: PERRL, EOM intact ENT: hearing intact - Respiratory Respiratory: bilateral: CTA - Cardiovascular Rhythm: other (tachycardia) Heart Sounds: Present: S1 & S2 - Gastrointestinal General gastrointestinal: Present: soft, non-tender, non-distended, normal bowel sounds - Integumentary Integumentary: Present: warm, dry, pale - Neurologic Neurological: alert and oriented x3 - Labs CBC & Chem 7: 09/02/17 08:08 09/02/17 08:08 Lab Results: Laboratory Results - last 24 hr 09/02/17 09/02/17 09/02/17 08:08 08:08 08:08 WBC 20.0 H RBC 2.17 L Hgb 5.6 L* D Hct 18.5 L* D MCV 85 MCH 26 L MCHC 30 RDW 21.9 H Plt Count 238 Lymph % (Auto) 17.6 Greene % (Auto) 8.3 H Eos % (Auto) 0.2 Baso % (Auto) 0.8 Lymph # 3.5 Greene # 1.7 H Eos # 0.0 Baso # 0.2 H Seg Neutrophils % 73.1 H Seg Neutrophils # 14.6 H PT 17.9 H INR 1.39 H APTT 38.2 H Sodium 137 Potassium 3.3 L Chloride 95.9 L Carbon Dioxide 20 L Anion Gap 24 BUN 17 Creatinine 0.6 L Estimated GFR > 60 BUN/Creatinine Ratio 28 Glucose 150 H Calcium 7.3 L Total Bilirubin 1.40 H AST 47 H ALT 15 Alkaline Phosphatase 141 H Total Protein 6.0 L D Albumin 2.7 L Albumin/Globulin Ratio 0.8 Lipase 26 Blood Type Crossmatch 09/02/17 08:09 WBC RBC Hgb Hct MCV MCH MCHC RDW Plt Count Lymph % (Auto) Greene % (Auto) Eos % (Auto) Baso % (Auto) Lymph # Greene # Eos # Baso # Seg Neutrophils % Seg Neutrophils # PT INR APTT Sodium Potassium Chloride Carbon Dioxide Anion Gap BUN Creatinine Estimated GFR BUN/Creatinine Ratio Glucose Calcium Total Bilirubin AST ALT Alkaline Phosphatase Total Protein Albumin Albumin/Globulin Ratio Lipase Blood Type O POSITIVE Crossmatch See Detail Assessment and Plan 1.GI bleed 2.hematemesis 3.melena 4.h/o cirrhosis with ascites and esophageal varices 5.ETOH abuse -INR 1.39, plt 238 -HGB 5.6-2 units of PRBCs pending transfusion -continue to monitor H/H and transfuse as needed -active signs of bleeding x 2 days with last episode of hematemesis and melena this am -currently hypotensive with saline bolus infusing -etiology-most likely 2/2 variceal bleeding -continue octreotide and protonix gtt -hold blood thinning medications -keep NPO -will schedule for EGD today once medically stable -continue supportive care -will follow
[2017-09-02] MEDS ORDERED: MORPHINE IV PRN (09:42)
[2017-09-02] MEDS ORDERED: XYLOCAINE TOPICAL 2% 5ML ONE (10:00)
[2017-09-02] MEDS ORDERED: PROTONIX 80 MG in NACL 0.9% 100 ML IV SCH (10:00)
[2017-09-02] MEDS: SandoSTATIN 500 MCG in NACL 0.9% 100 ML IV SCH (10:32)
[2017-09-02] MEDS: NACL 0.9% 1000 ML 1,000 ML IV SCH ×3 (12:49→22:02)
[2017-09-02] MEDS: CORGARD PO SCH (13:20)
[2017-09-02] MEDS: PROzac PO SCH (13:21)
[2017-09-02 15:19] LABS: Hemoglobin 6.6 gm/dl (10.1-14.3)
--- NOTE | 2017-09-02 15:30 | Anesthesia Consultation ---
Anesthesia Consult and Med Hx Date of service: 09/02/17 - Airway Anesthetic Teeth Evaluation: Poor (cracked front tooth ) ROM Head & Neck: Adequate Mental/Hyoid Distance: Adequate Mallampati Class: Class II Intubation Access Assessment: Probably Good - Pulmonary Exam CTA: Yes - Cardiac Exam Cardiac Exam: RRR - Pre-Operative Health Status ASA Pre-Surgery Classification: ASA3 Proposed Anesthetic Plan: General - Pre-Anesthesia Comment Pre-Anesthesia Comments: Hgb 5.4, receiving PRBC - Cardiovascular System Hx Hypertension: Yes - Endocrine Hx Cirrhosis: Yes Hx Liver Disease: Yes (CIRRHOSIS) - Hematic Hx Anemia: Yes - Other Systems Hx Alcohol Use: Yes
--- NOTE | 2017-09-02 15:30 | Anesthesia Day of Surgery ---
Anesthesia Day of Surgery - Day of Surgery Patient Examined: Yes Patient H&P Reviewed: Yes Patient is NPO: Yes
[2017-09-02 15:32] LABS: Hematocrit 18.5 % (30.3-42.9)
[2017-09-02] MEDS ORDERED: DIPRIVAN 10 MG/ML IV ONE ×3 (16:36)
[2017-09-02] MEDS ORDERED: AMIDATE IV ONE (16:46)
--- NOTE | 2017-09-02 17:41 | Post Operative Note ---
Pre-op diagnosis: GI Bleed, hx of varices Post-op diagnosis: other (Esophageal Varices) Findings: 1. No blood/clots in upper GI tract 2. Normal duodenum 3. Portal gastropathy 4. No gastric varices 5. Three columns of Grade III esophageal varices, banded at the GE junction Procedure: EGD with esophageal variceal banding Anesthesia: MAC Surgeon: BOBBI ARCE Estimated blood loss: none Pathology: none Specimen disposition: other (N/A) Condition: stable Disposition: floor (1. NPO tonight except meds. 2. Continue protonix IV (BID, not gtt) and octreotide (gtt for 48 hours). 3. May advance to clears tomorrow. 4. Patient should stop drinking.)
--- NOTE | 2017-09-02 18:21 | Operative Report ---
PROCEDURE PERFORMED: Esophagogastroduodenoscopy with variceal banding. PREOPERATIVE DIAGNOSIS: Gastrointestinal bleeding and liver disease. POSTOPERATIVE DIAGNOSES: Esophageal varices, status post banding for bleeding control. ENDOSCOPIST: Jeromy Shell MD. INSTRUMENT: [employer] video endoscope. MEDICATIONS: MAC anesthesia by [facility]. COMPLICATIONS: No apparent complications. ESTIMATED BLOOD LOSS: None. SPECIMENS: None. IMPLANTS: Variceal band ligator x 3 applied. ASSISTANTS: None. CONDITION AT COMPLETION: Stable. TECHNIQUE: The patient was informed of the risks and benefits of the procedure. She signed the informed consent to proceed. She was placed in left lateral decubitus position. The above sedative medications were given. Her vital signs remained stable throughout the procedure. The instrument was advanced from the mouth to the second portion of the duodenum under direct visualization. At that point, the bowel was insufflated and the endoscope was slowly withdrawn. FINDINGS: 1. Normal duodenum and lower half of the stomach. 2. Portal gastropathy, but no evidence of gastric varices in the more proximal stomach. 3. Three columns of esophageal varices extending from the GE junction to the midesophagus; an endoscopic band was applied to each column separately, at the GE junction. 4. Otherwise, normal esophagus. RECOMMENDATIONS: 1. Nothing by mouth tonight except for medications. 2. Continue Protonix intravenous twice a day and octreotide drip for 48 hours. 3. May advance to clear liquid diet tomorrow. 4. The patient should stop all alcohol. JOB# [id number] KETTY/NTS
[2017-09-02] MEDS: MORPHINE IV PRN (21:15)
[2017-09-02] MEDS ORDERED: REGLAN IV PRN (21:16)
[2017-09-02] MEDS ORDERED: NACL 0.9% 500 ML IV ONE (21:30)
[2017-09-02] MEDS ORDERED: NACL 0.9% 500 ML 500 ML ONE (21:44)
[2017-09-02] MEDS: KENALOG TP SCH (22:01)
[2017-09-02] MEDS: ROXICODONE PO PRN (23:15)
[2017-09-02] MEDS ORDERED: REGLAN PO PRN (23:45)
[2017-09-03] MEDS: NACL 0.9% 1000 ML 1,000 ML IV SCH ×2 (04:17→22:44)
[2017-09-03] MEDS: PROTONIX IV SCH ×3 (04:18→22:47)
[2017-09-03] MEDS: ROXICODONE PO PRN ×3 (04:21→15:44)
[2017-09-03] MEDS: SandoSTATIN 500 MCG in NACL 0.9% 100 ML IV SCH (05:07)
[2017-09-03 08:01] LABS: Alanine Aminotransferase 12 units/L (7-56); Albumin 2.4 g/dL (3.9-5); BUN/Creatinine Ratio 35; Basophils % (Auto) 0.6 % (0.0-1.8); Blood Urea Nitrogen 14 mg/dL (7-17); Calcium 6.3 mg/dL (8.4-10.2); Eosinophils # (Auto) 0.1 K/mm3 (0.0-0.4); Hemoglobin 8.7 gm/dl (10.1-14.3); Hemolysis Index 6; Lymphocytes # (Auto) 1.3 K/mm3 (1.2-5.4); Lymphocytes % (Auto) 17.8 % (13.4-35.0); Mean Corpuscular HGB Conc 35 % (30-34); Mean Corpuscular Hemoglobin 33 pg (28-32); Mean Corpuscular Volume 93 fl (79-97); Monocytes # (Auto) 0.7 K/mm3 (0.0-0.8); Monocytes % (Auto) 10.1 % (0.0-7.3); Red Blood Count 2.68 M/mm3 (3.65-5.03); Red Cell Distribution Width 19.7 % (13.2-15.2)
[2017-09-03 08:13] LABS: Platelet Count 99 K/mm3 (140-440)
[2017-09-03 08:37] LABS: INR 1.33 (0.87-1.13)
[2017-09-03] MEDS: CORGARD PO SCH (10:02)
[2017-09-03] MEDS: KENALOG TP SCH ×2 (10:03→15:52)
[2017-09-03] MEDS: PROzac PO SCH (10:05)
[2017-09-03] MEDS: THERAGRAN-M Tab PO SCH (10:05)
--- NOTE | 2017-09-03 11:17 | Consultation ---
History of Present Illness - Reason for Consult Consult date: 09/03/17 Variceal Bleed Requesting physician: BOBBI ARCE - History of Present Illness 47 y/o female with known cirrhosis and prior history of variceal bleed in past with bands admitted with recurrent bleeding. Scoped yesterday by GI and had 3 varices banded. Transfused 4 units of blood. So far H/H appears to be stable. BP is stable. Complains of Indigestion and pain. Still drinks. Past History Past Medical History: anemia, hypertension, liver disease, other (cirrhosis with liver, anxiety, depression) Past Surgical History: appendectomy, , Other (EGD/status post variceal banding) Social history: lives with family, smoking (former smoker), alcohol abuse, full code. denies: IV drug use Family history: hypertension Medications and Allergies Allergies Allergy/AdvReac Type Severity Reaction Status Date / Time No Known Allergies Allergy Verified 11/12/16 08:43 Home Medications Medication Instructions Recorded Confirmed Last Taken Type No Known Home Medications [No 09/02/17 09/02/17 Unknown History Reported Home Medications] Active Meds: Active Medications Fluoxetine HCl (Prozac) 20 mg PO QDAY FOREIGN Last Admin: 09/03/17 10:05 Dose: 20 mg Octreotide Acetate 500 mcg/ (Sodium Chloride) 101 mls @ 5.05 mls/hr IV TITR FOREIGN ; 25 MCG/HR PRN Reason: Protocol Last Admin: 09/03/17 05:07 Dose: 25 mcg/hr, 5.05 mls/hr Sodium Chloride (Nacl 0.9% 1000 Ml) 1,000 mls @ 150 mls/hr IV DIRECT FOREIGN Last Admin: 09/03/17 04:17 Dose: 150 mls/hr Influenza Virus Vaccine Quadrival (Fluarix Quad [id number](36 Mos+) 0.5 ml IM .ONCE ONE Stop: 09/03/17 12:01 Metoclopramide HCl (Reglan) 5 mg PO Q6H PRN PRN Reason: Nausea And Vomiting Morphine Sulfate (Morphine) 2 mg IV Q4H PRN PRN Reason: Pain, Moderate (4-6) Last Admin: 09/02/17 21:15 Dose: 2 mg Multivitamins/Minerals (Theragran-M Tab) 1 each PO QDAY FOREIGN Last Admin: 09/03/17 10:05 Dose: 1 each Nadolol (Corgard) 20 mg PO QDAY [facility] Last Admin: 09/03/17 10:02 Dose: 20 mg Oxycodone HCl (Roxicodone) 10 mg PO Q4H PRN PRN Reason: Pain, Moderate (4-6) Last Admin: 09/03/17 10:04 Dose: 10 mg Pantoprazole Sodium (Protonix) 40 mg IV BID [facility] Last Admin: 09/03/17 10:03 Dose: 40 mg Triamcinolone Acetonide (Kenalog) 1 applic TP QID [facility] Last Admin: 09/03/17 10:03 Dose: 1 applic Review of Systems All systems: negative Exam - Constitutional Vitals: Temp Pulse Resp BP Pulse Ox 98.1 F 74 20 121/68 97 09/03/17 04:20 09/03/17 11:01 09/03/17 08:30 09/03/17 11:01 09/03/17 11:01 Results - Labs CBC & Chem 7: 09/03/17 06:58 09/03/17 06:58 Labs: Abnormal lab results 09/02/17 09/02/17 09/03/17 Range/Units 08:09 14:39 06:58 RBC 2.68 L (3.65-5.03) M/mm3 Hgb 6.6 L 8.7 L (10.1-14.3) gm/dl Hct 18.5 L* 25.0 L D (30.3-42.9) % MCH 33 H (28-32) pg MCHC 35 H (30-34) % RDW 19.7 H (13.2-15.2) % Plt Count 99 L (140-440) K/mm3 [place]idan % (Auto) 10.1 H (0.0-7.3) % PT (12.2-14.9) Sec. INR (0.87-1.13) Carbon Dioxide (22-30) mmol/L Creatinine (0.7-1.2) mg/dL Calcium (8.4-10.2) mg/dL Total Bilirubin (0.1-1.2) mg/dL Total Protein (6.3-8.2) g/dL Albumin (3.9-5) g/dL Crossmatch See Detail Crossmatch Prewarmed See Detail 09/03/17 09/03/17 Range/Units 06:58 06:58 RBC (3.65-5.03) M/mm3 Hgb (10.1-14.3) gm/dl Hct (30.3-42.9) % MCH (28-32) pg MCHC (30-34) % RDW (13.2-15.2) % Plt Count (140-440) K/mm3 [place]idan % (Auto) (0.0-7.3) % PT 17.2 H (12.2-14.9) Sec. INR 1.33 H (0.87-1.13) Carbon Dioxide 20 L (22-30) mmol/L Creatinine 0.4 L (0.7-1.2) mg/dL Calcium 6.3 L (8.4-10.2) mg/dL Total Bilirubin 1.70 H (0.1-1.2) mg/dL Total Protein 4.9 L (6.3-8.2) g/dL Albumin 2.4 L (3.9-5) g/dL Crossmatch Crossmatch Prewarmed Assessment and Plan 47 y/o female with cirrhosis and recurrent variceal bleeds, still drinking. 1. Continue NPO status until GI is comfortable with PO 2. CIWA protocol 3. Follow up repeat H/H's 4. Asked nursing to attempt to gain an second peripheral IV 5. Octreotide per GI 6. Continue PPI, may be able to switch to BID dosing soon 7. BB 8. pain control 9. Await GI assessment but appears stable for transfer out of ICU .
[2017-09-03] MEDS ORDERED: Fluarix Quad 2017-2018(36 MOS+ IM ONE (12:00)
[2017-09-03] MEDS ORDERED: ATIVAN IV PRN ×2 (16:00)
--- NOTE | 2017-09-03 18:41 | Gastroenterology Progress Note ---
Assessment and Plan - Patient Problems (1) Esophageal varices with bleeding Current Visit: Yes Status: Acute Plan to address problem: - S/P banding x 3 09/02 with good clinical course. - OK to convert protonix to PO, and stop octreotide after 24 hours. - Will advance to liquid diet, and home tomorrow if stable. - Patient should avoid all NSAIDs. (2) Cirrhosis of liver Current Visit: No Status: Acute Qualifiers: Hepatic cirrhosis type: alcoholic cirrhosis Ascites presence: with ascites Qualified Code(s): K70.31 - Alcoholic cirrhosis of liver with ascites Plan to address problem: - Start CIWA for EtOH abuse on chronic liver disease. - MELD < 10 and not a candidate for liver transplant workup at present given recidivism. Subjective Date of service: 09/03/17 Principal diagnosis: Cirrhosis, Variceal Bleeding Interval history: The patient has had no hematemesis nor fevers or chills today. Mild abdominal pain, that resolved with medications. Wants to eat. Minimal stool output, dark. Objective - Constitutional Vitals: Temp Pulse Resp BP Pulse Ox 98.1 F 70 17 118/63 96 09/03/17 04:20 09/03/17 18:00 09/03/17 18:00 09/03/17 18:00 09/03/17 18:00 General appearance: no acute distress - EENT Eyes: PERRL, EOM intact - Respiratory Respiratory effort: normal Respiratory: bilateral: CTA - Cardiovascular Rhythm: regular Heart Sounds: Present: S1 & S2 - Gastrointestinal General gastrointestinal: Present: soft, non-tender, non-distended - Labs CBC & Chem 7: 09/03/17 06:58 09/03/17 06:58 Labs: Laboratory Results - last 24 hr 09/02/17 09/03/17 09/03/17 08:09 06:58 06:58 WBC 7.2 RBC 2.68 L Hgb 8.7 L Hct 25.0 L D MCV 93 MCH 33 H MCHC 35 H RDW 19.7 H Plt Count 99 L Lymph % (Auto) 17.8 Sharp % (Auto) 10.1 H Eos % (Auto) 2.0 Baso % (Auto) 0.6 Lymph # 1.3 Sharp # 0.7 Eos # 0.1 Baso # 0.0 Seg Neutrophils % 69.5 Seg Neutrophils # 5.0 PT 17.2 H INR 1.33 H Sodium Potassium Chloride Carbon Dioxide Anion Gap BUN Creatinine Estimated GFR BUN/Creatinine Ratio Glucose Calcium Total Bilirubin AST ALT Alkaline Phosphatase Total Protein Albumin Albumin/Globulin Ratio Blood Type O POSITIVE Antibody Screen TNR Prewarmed Antibody Srcn Negative Crossmatch See Detail Crossmatch Prewarmed See Detail 09/03/17 06:58 WBC RBC Hgb Hct MCV MCH MCHC RDW Plt Count Lymph % (Auto) Sharp % (Auto) Eos % (Auto) Baso % (Auto) Lymph # Sharp # Eos # Baso # Seg Neutrophils % Seg Neutrophils # PT INR Sodium 138 Potassium 3.6 Chloride 105.9 Carbon Dioxide 20 L Anion Gap 16 BUN 14 Creatinine 0.4 L Estimated GFR > 60 BUN/Creatinine Ratio 35 Glucose 76 Calcium 6.3 L Total Bilirubin 1.70 H AST 37 ALT 12 Alkaline Phosphatase 113 Total Protein 4.9 L Albumin 2.4 L Albumin/Globulin Ratio 1.0 Blood Type Antibody Screen Prewarmed Antibody Srcn Crossmatch Crossmatch Prewarmed
[2017-09-03] MEDS: XIFAXAN PO SCH (22:46)
[2017-09-03] MEDS: MORPHINE IV PRN (22:47)
[2017-09-04] MEDS: SandoSTATIN 500 MCG in NACL 0.9% 100 ML IV SCH (03:11)
[2017-09-04] MEDS: MORPHINE IV PRN ×2 (05:01→10:06)
[2017-09-04] MEDS: NACL 0.9% 1000 ML 1,000 ML IV SCH (07:31)
[2017-09-04] MEDS ORDERED: MAG-OX PO SCH (10:00)
[2017-09-04] MEDS: XIFAXAN PO SCH (10:03)
[2017-09-04] MEDS: PROzac PO SCH (10:03)
[2017-09-04] MEDS: THERAGRAN-M Tab PO SCH (10:03)
[2017-09-04] MEDS: CORGARD PO SCH (10:04)
[2017-09-04] MEDS ORDERED: MAGNESIUM SULFATE 3 GM in NACL 0.9% 100 ML IV ONE (11:00)
--- NOTE | 2017-09-04 12:44 | Gastroenterology Progress Note ---
Assessment and Plan - Patient Problems (1) Esophageal varices with bleeding Status: Acute Plan to address problem: - S/P banding x 3 09/02 with good clinical course. - OK to convert protonix to PO, and stop octreotide after 24 hours. - Will advance to regular diet, and home today if stable. - Patient should avoid all NSAIDs. - Will sign off; please call if needed. (2) Cirrhosis of liver Status: Acute Qualifiers: Hepatic cirrhosis type: alcoholic cirrhosis Ascites presence: with ascites Qualified Code(s): K70.31 - Alcoholic cirrhosis of liver with ascites Plan to address problem: - Start CIWA for EtOH abuse on chronic liver disease. - MELD < 10 and not a candidate for liver transplant workup at present given recidivism. Subjective Date of service: 09/04/17 Principal diagnosis: Cirrhosis, Variceal Bleeding Interval history: The patient has no N/V and is tolerating a liquid diet. She denies severe abdominal pain, is just sore retrosternal where the bands are located. She has no melena and is ambulating without difficulty. Objective - Constitutional Vitals: Temp Pulse Resp BP Pulse Ox 98.8 F 69 18 126/87 92 09/04/17 08:04 09/04/17 08:04 09/04/17 10:06 09/04/17 10:04 09/04/17 08:04 General appearance: no acute distress - Respiratory Respiratory effort: normal Respiratory: bilateral: CTA - Cardiovascular Rhythm: regular Heart Sounds: Present: S1 & S2 - Gastrointestinal General gastrointestinal: Present: soft, non-tender, non-distended - Labs CBC & Chem 7: 09/03/17 06:58 09/03/17 06:58 Labs: Laboratory Results - last 24 hr 09/04/17 05:28 Magnesium 1.20 L
[2017-09-04] MEDS ORDERED: TORADOL IV ONE (12:58)
[2017-09-04] MEDS ORDERED: PROTONIX PO SCH ×2 (13:00→22:00)
--- NOTE | 2017-09-04 13:05 | Query- Nutrition ---
Dear _Sonal Date:___09/04/2017 Resource Development Director/CDS:___Angelica Phone#:____[phone] Exercise your independent professional judgment when responding to query. Questions asked do not imply a particular answer is desired or expected. We greatly appreciate your clarification on this issue. Clinical Documentation States: 47 Year old female was admitted on 09/02/2017 for GI bleed. The H&P (Dr. Pruitt) note states "-Alcoholic cirrhosis liver; GI evaluation Closely monitor, tries to quit alcohol intake --History of alcohol abuse; counseling and patient strongly advised to quit alcohol Thiamine and folic acid." Clinical Findings Show: BMI:___19.5 Albumin: 2.4 Please select the most appropriate option 3 [] Mild Malnutrition [] Mild - Moderate Malnutrition [] Moderate - Severe Malnutrition [x] Severe Malnutrition Serum Albumin 2.8 to 3.4 g/dl or Pre-albumin 5 to 17 mg/dl1,2 Inadequate nutritional intake1,2,3,4 NPO > 5 days Weight loss: 5% in 1 month or 7.5% in 3 months or 10% in 6 months1, 3,4 BMI 16 to 18.4 or Weight <90% of ideal body weight1,2,3,4 Serum Albumin < 2.8 g/ dl1,2 Lymphocytes < 1500/ L2 Inadequate nutritional intake3, high stress e.g. major trauma, sepsis,pancreatitis, nieto etc. Decubitus ulcers1,2, , skin breakdown2, easy hair pluckability2 Weight <80% standard for height2 Triceps skin fold <3 mm2 Mid-arm muscle circumference <15 cm2 Creatinine-height index <60% standard2 [ ] Cachexia [ ] Emaciated w/Malnutrition [ ] Other: [ ] Unable to determine [ ] Comment/Explanation: Present on Admission: [x] Yes (Y) [ ] Clinically undeterminable (W) [ ] No ( N) Please also document response in your Progress Notes and/or Discharge Summary and indicate if the condition was present on admission. MTDD
[2017-09-04 16:02] VITALS: BP 110/74
--- NOTE | 2017-09-04 16:21 | Discharge Summary ---
Providers - Providers Date of Admission: 09/02/17 09:02 Date of discharge: 09/04/17 Attending physician: SINAI BARRON Primary care physician: [employer] Hospitalization Condition: Stable Disposition: DC-01 TO HOME OR SELFCARE Time spent for discharge: 32 min Core Measure Documentation - Palliative Care Palliative Care/ Comfort Measures: Not Applicable - Core Measures Any of the following diagnoses?: none Exam - Constitutional Vitals: Temp Pulse Resp BP Pulse Ox 98.9 F 66 16 110/74 95 09/04/17 15:33 09/04/17 15:33 09/04/17 15:33 09/04/17 15:33 09/04/17 15:33 General appearance: Present: no acute distress, well-nourished - EENT Eyes: Present: PERRL, EOM intact - Neck Neck: Present: supple, normal ROM - Respiratory Respiratory effort: normal Respiratory: negative: rales, rhonchi, wheezing - Cardiovascular Rhythm: regular Heart Sounds: Present: S1 & S2 - Extremities Extremities: no ischemia, No edema - Abdominal General gastrointestinal: Present: soft, non-tender, non-distended, normal bowel sounds - Integumentary Integumentary: Present: clear, warm - Musculoskeletal Musculoskeletal: strength equal bilaterally - Psychiatric Psychiatric: appropriate mood/affect, cooperative - Neurologic Neurologic: CNII-XII intact, moves all extremities Plan Activity: advance as tolerated Diet: regular Additional Instructions: Strongly advised to quit alcohol intake. Advised to seek alcohol rehabilitation. Advised to follow [facility] support group. If you have any new episodes of GI bleeding, contact M.D. or go to emergency room. Do not use NSAIDs group of medications. Advised not to drink and drive or operate heavy machinery under the influence of alcohol Follow up with: FREYA CHAUHAN MD [Primary Care Provider] - 3-5 Days BOBBI ARCE MD [Staff Physician] - 7 Days Prescriptions: FLUoxetine [PROzac] 20 mg PO QDAY #14 capsule Folic Acid [Folvite] 1 mg PO QDAY #30 tablet Magnesium Oxide [Mag-Ox] 400 mg PO QDAY #10 tablet Nadolol [Corgard] 20 mg PO QDAY #30 tablet Pantoprazole [Protonix TAB] 40 mg PO QDAY #30 tablet Rifaximin [Xifaxan] 550 mg PO BID #60 tablet Thiamine [Vitamin B-1] 100 mg PO QDAY #30 tablet Triamcinolone 0.5% [Kenalog 0.5% CREAM] 1 applic TP QID #1 tube
[2017-09-04] MEDS: PROTONIX IV SCH (16:28)
== END 2017-09-04 17:45 | disposition home or self-care (01) | DRG 356 ==
LOC: ED 07:01 → CC1 09:02 → 3A 09-03 20:09
PROVIDERS: ADMIT Internal Medicine; ATTEND Internal Medicine
PROC: 30233N1 Transfusion of Nonautologous Red Blood Cells into Peripheral Vein, Percutaneous Approach (ICD-10-PCS; principal; 2017-09-02)
PROC: 06L38CZ Occlusion of Esophageal Vein with Extraluminal Device, Via Natural or Artificial Opening Endoscopic (ICD-10-PCS; 2017-09-02)
PROC: 3E0234Z Introduction of Serum, Toxoid and Vaccine into Muscle, Percutaneous Approach (ICD-10-PCS; 2017-09-03)
DX: I85.01 Esophageal varices with bleeding (principal); E43 Unspecified severe protein-calorie malnutrition; D68.9 Coagulation defect, unspecified; D62 Acute posthemorrhagic anemia; I95.9 Hypotension, unspecified; K70.30 Alcoholic cirrhosis of liver without ascites; I86.4 Gastric varices; I10 Essential (primary) hypertension; F41.9 Anxiety disorder, unspecified; F10.10 Alcohol abuse, uncomplicated; Y90.9 Presence of alcohol in blood, level not specified; F32.9 Major depressive disorder, single episode, unspecified; M13.862 Other specified arthritis, left knee; M13.861 Other specified arthritis, right knee; Z87.891 Personal history of nicotine dependence; Z23 Encounter for immunization; Z90.49 Acquired absence of other specified parts of digestive tract; Z82.49 Family history of ischemic heart disease and other diseases of the circulatory system; Z68.1 Body mass index [BMI] 19.9 or less, adult
CPT/HCPCS: 36415; 80053; 80320; 83690; 83735; 85014; 85018; 85025; 85610; 85730; 86850; 86900; 86901; 86922; 90686; 93005; 93010; 96374; 96375; 96376; C9113; G0480; J1885; J2270; J2354; J2405; J2704; J3475; J7030; J7040; P9016

== ENCOUNTER 2018-11-02 22:39 | Emergency (ER) | payer MEDICAID ==
[2018-11-02] MEDS ORDERED: ZOFRAN IV ONE (22:49)
[2018-11-02] MEDS ORDERED: MORPHINE IV ONE (22:49)
--- NOTE | 2018-11-02 22:53 | Emergency Department Report ---
ED General Adult HPI - General Stated complaint: GENERAL ILLNESS Time Seen by Provider: 11/02/18 22:44 - History of Present Illness Initial comments: Patient is 48 years old female with history of psoriasis and liver cirrhosis. Patient presented to the ER via EMS complaining of generalized body pain and generalized weakness for approximately one week now. Patient denied any recent injury. Patient denied any fever or chills. - Related Data Previous Rx's Medication Instructions Recorded Last Taken Type FLUoxetine [PROzac] 20 mg PO QDAY #14 capsule 09/04/17 Unknown Rx Ferrous Sulfate [Feosol 325 MG tab] 325 mg PO BID #60 tablet 09/04/17 Unknown Rx Folic Acid [Folvite] 1 mg PO QDAY #30 tablet 09/04/17 Unknown Rx Magnesium Oxide [Mag-Ox] 400 mg PO QDAY #10 tablet 09/04/17 Unknown Rx Nadolol [Corgard] 20 mg PO QDAY #30 tablet 09/04/17 Unknown Rx Pantoprazole [Protonix TAB] 40 mg PO QDAY #30 tablet 09/04/17 Unknown Rx Rifaximin [Xifaxan] 550 mg PO BID #60 tablet 09/04/17 Unknown Rx Thiamine [Vitamin B-1] 100 mg PO QDAY #30 tablet 09/04/17 Unknown Rx Triamcinolone 0.5% [Kenalog 0.5% 1 applic TP QID #1 tube 09/04/17 Unknown Rx CREAM] Allergies Allergy/AdvReac Type Severity Reaction Status Date / Time No Known Allergies Allergy Verified 11/12/16 08:43 ED Review of Systems ROS: Stated complaint: GENERAL ILLNESS Other details as noted in HPI Comment: All other systems reviewed and negative Constitutional: denies: chills, fever Respiratory: denies: cough, orthopnea, shortness of breath, SOB with exertion, SOB at rest, wheezing Cardiovascular: denies: chest pain, palpitations Gastrointestinal: denies: abdominal pain, nausea, vomiting, diarrhea, constipation, hematemesis, melena, hematochezia Musculoskeletal: back pain, arthralgia, myalgia Neurological: weakness. denies: headache Psychiatric: denies: depression, homicidal thoughts, suicidal thoughts ED Past Medical Hx - Past Medical History Hx Hypertension: Yes Hx Congestive Heart Failure: No Hx Diabetes: No Hx Liver Disease: Yes (CIRRHOSIS) Hx Arthritis: Yes (knees arms hands) Hx Psychiatric Treatment: Yes (anxiety, DEPRESSION) Hx Asthma: No Hx COPD: No Hx HIV: No Additional medical history: psoriasis - Surgical History Hx Appendectomy: Yes Additional Surgical History: - Social History Smoking Status: Former Smoker - Medications Home Medications: Home Medications Medication Instructions Recorded Confirmed Last Taken Type FLUoxetine [PROzac] 20 mg PO QDAY #14 capsule 09/04/17 Unknown Rx Ferrous Sulfate [Feosol 325 MG tab] 325 mg PO BID #60 tablet 09/04/17 Unknown Rx Folic Acid [Folvite] 1 mg PO QDAY #30 tablet 09/04/17 Unknown Rx Magnesium Oxide [Mag-Ox] 400 mg PO QDAY #10 tablet 09/04/17 Unknown Rx Nadolol [Corgard] 20 mg PO QDAY #30 tablet 09/04/17 Unknown Rx Pantoprazole [Protonix TAB] 40 mg PO QDAY #30 tablet 09/04/17 Unknown Rx Rifaximin [Xifaxan] 550 mg PO BID #60 tablet 09/04/17 Unknown Rx Thiamine [Vitamin B-1] 100 mg PO QDAY #30 tablet 09/04/17 Unknown Rx Triamcinolone 0.5% [Kenalog 0.5% 1 applic TP QID #1 tube 09/04/17 Unknown Rx CREAM] ED Physical Exam - General General appearance: alert, in no apparent distress - Head Head exam: Present: atraumatic, normocephalic, normal inspection - Eye Eye exam: Present: normal appearance - ENT ENT exam: Present: normal exam, normal orophraynx, mucous membranes moist - Neck Neck exam: Present: normal inspection, full ROM. Absent: tenderness, me ningismus, lymphadenopathy, thyromegaly - Respiratory Respiratory exam: Present: normal lung sounds bilaterally - Cardiovascular Cardiovascular Exam: Present: regular rate, normal rhythm, normal heart sounds - GI/Abdominal GI/Abdominal exam: Present: soft, normal bowel sounds. Absent: distended, tenderness, guarding, rebound, rigid, organomegaly, mass, bruit, pulsatile mass, hernia - Extremities Exam Extremities exam: Present: normal inspection, full ROM, normal capillary refill. Absent: tenderness, pedal edema, calf tenderness - Back Exam Back exam: Present: normal inspection, full ROM. Absent: CVA tenderness (R), CVA tenderness (L), muscle spasm, paraspinal tenderness, vertebral tenderness - Neurological Exam Neurological exam: Present: alert, oriented X3, CN II-XII intact, normal gait, reflexes normal - Skin Skin exam: Present: warm, intact, normal color ED Course Vital Signs 11/02/18 11/02/18 11/03/18 22:59 23:02 00:16 Temperature 98.0 F Pulse Rate 90 85 93 H Respiratory 12 24 Rate Blood Pressure 107/71 Blood Pressure 107/58 [Left] O2 Sat by Pulse 99 100 Oximetry 11/03/18 01:14 Temperature Pulse Rate 87 Respiratory 13 Rate Blood Pressure Blood Pressure 117/68 [Left] O2 Sat by Pulse 99 Oximetry ED Medical Decision Making - Lab Data Result diagrams: 11/02/18 23:07 11/02/18 23:07 - Medical Decision Making Patient is 48 years old female with history of psoriasis and liver cirrhosis. Patient presented to the ER via EMS complaining of generalized body pain and generalized weakness for approximately one week now. Patient denied any recent injury. Patient denied any fever or chills. Patient received morphine for pain. Patient stated that she is feeling much better. She asked for food. Patient relapsed reviewed and is unremarkable. I believe the patient's symptoms is most likely related to her psoriasis and arthritis. I advised the patient to follow-up with her primary care physician in the next 2-3 days and to return to the ER if symptoms are not improved. Critical care attestation.: If time is entered above; I have spent that time in minutes in the direct care of this critically ill patient, excluding procedure time. ED Disposition Clinical Impression: Generalized weakness, Generalized body aches Disposition: -01 TO HOME OR SELFCARE Is pt being admited?: No Condition: Stable Instructions: Chronic Pain (ED), Psoriasis (ED) Referrals: [facility] [Provider Group] - 3-5 Days
[2018-11-02 23:37] LABS: Basophils % (Auto) 0.7 % (0.0-1.8); Eosinophils # (Auto) 0.1 K/mm3 (0.0-0.4); Eosinophils % (Auto) 3.1 % (0.0-4.3); Hematocrit 40.9 % (30.3-42.9); Hemoglobin 13.7 gm/dl (10.1-14.3); Lymphocytes # (Auto) 1.9 K/mm3 (1.2-5.4); Lymphocytes % (Auto) 39.5 % (13.4-35.0); Mean Corpuscular HGB Conc 33 % (30-34); Mean Corpuscular Volume 100 fl (79-97); Monocytes # (Auto) 0.4 K/mm3 (0.0-0.8); Monocytes % (Auto) 9.2 % (0.0-7.3); Red Blood Count 4.11 M/mm3 (3.65-5.03); Red Cell Distribution Width 16.2 % (13.2-15.2)
[2018-11-02] MEDS ORDERED: NACL 0.9% 1000 ML 1,000 ML IV ONE (23:50)
[2018-11-02 23:54] LABS: BUN/Creatinine Ratio 5; Blood Urea Nitrogen 2 mg/dL (7-17); Calcium 8.4 mg/dL (8.4-10.2); Hemolysis Index 12
[2018-11-03] LABS: Albumin 3.5 g/dL (3.9-5); Bilirubin,Direct 0.2 mg/dL (0-0.2)
[2018-11-03] MEDS ORDERED: TORADOL IV ONE (00:02)
[2018-11-03 01:21] LABS: Amorphous Crystals,Urine Few; Bilirubin,Urine NEG (Negative); Blood,Urine SM (Negative); Color,Urine Yellow (Yellow); Protein,Urine <15 mg/dL mg/dL (Negative); Urobilinogen,Urine < 2.0 mg/dL (<2.0)
[2018-11-03 02:31] VITALS: BP 95/65
[2018-11-03 02:45] LABS: Platelet Count 90 K/mm3 (140-440)
== END 2018-11-03 02:30 | disposition home or self-care (01) ==
LOC: ED 22:39
DX: R53.1 Weakness (principal); M79.10 Myalgia, unspecified site; L40.9 Psoriasis, unspecified; K74.60 Unspecified cirrhosis of liver; I10 Essential (primary) hypertension; Z90.49 Acquired absence of other specified parts of digestive tract; Z87.891 Personal history of nicotine dependence
CPT/HCPCS: 36415; 80048; 80076; 81001; 85025; 96361; 96374; 96375; 99284; J1885; J2270; J2405; J7030

== ENCOUNTER 2018-12-25 16:37 | Inpatient (IN) | payer MEDICAID ==
[2018-12-25] MEDS ORDERED: NORCO 5/325 PO ONE (16:58)
--- NOTE | 2018-12-25 17:03 | Emergency Department Report ---
ED General Adult HPI - General Stated complaint: GENERAL WEAKNESS Time Seen by Provider: 12/25/18 16:43 Source: patient Mode of arrival: Stretcher Limitations: No Limitations - History of Present Illness Initial comments: 48-year-old female with a past medical history liver cirrhosis secondary to alcohol abuse, esophageal varices, and psoriasis presents to the hospital complains of generalized body pain 3 days. Patient states she does not currently drink alcohol is not taking any medication except for [id number] ibuprofen as needed for pain. She complains of worsening in her psoriasis rash including her legs years with worsening associated pain. Patient also complains of chest pain and lower abdominal pain. No reports of fever, nausea, vomiting, or diarrhea. Patient states that she has noticed some bright red blood with her bowel movements intermittently. Patient states she is no longer drinking alcohol. - Related Data Previous Rx's Medication Instructions Recorded Last Taken Type FLUoxetine [PROzac] 20 mg PO QDAY #14 capsule 09/04/17 Unknown Rx Ferrous Sulfate [Feosol 325 MG tab] 325 mg PO BID #60 tablet 09/04/17 Unknown Rx Folic Acid [Folvite] 1 mg PO QDAY #30 tablet 09/04/17 Unknown Rx Magnesium Oxide [Mag-Ox] 400 mg PO QDAY #10 tablet 09/04/17 Unknown Rx Nadolol [Corgard] 20 mg PO QDAY #30 tablet 09/04/17 Unknown Rx Pantoprazole [Protonix TAB] 40 mg PO QDAY #30 tablet 09/04/17 Unknown Rx Rifaximin [Xifaxan] 550 mg PO BID #60 tablet 09/04/17 Unknown Rx Thiamine [Vitamin B-1] 100 mg PO QDAY #30 tablet 09/04/17 Unknown Rx Triamcinolone 0.5% [Kenalog 0.5% 1 applic TP QID #1 tube 09/04/17 Unknown Rx CREAM] Ondansetron [Zofran Odt] 4 mg PO Q8HR PRN #14 tab.rapdis 11/03/18 Unknown Rx traMADol [Ultram] 50 mg PO Q6HR PRN #14 tablet 11/03/18 Unknown Rx Allergies Allergy/AdvReac Type Severity Reaction Status Date / Time No Known Allergies Allergy Verified 11/12/16 08:43 ED Review of Systems ROS: Stated complaint: GENERAL WEAKNESS Other details as noted in HPI Comment: All other systems reviewed and negative ED Past Medical Hx - Past Medical History Hx Hypertension: Yes Hx Congestive Heart Failure: No Hx Diabetes: No Hx Liver Disease: Yes (CIRRHOSIS) Hx Arthritis: Yes (knees arms hands) Hx Psychiatric Treatment: Yes (anxiety, DEPRESSION) Hx Asthma: No Hx COPD: No Hx HIV: No Additional medical history: psoriasis - Surgical History Hx Appendectomy: Yes Additional Surgical History: - Social History Smoking Status: Former Smoker - Medications Home Medications: Home Medications Medication Instructions Recorded Confirmed Last Taken Type FLUoxetine [PROzac] 20 mg PO QDAY #14 capsule 09/04/17 Unknown Rx Ferrous Sulfate [Feosol 325 MG tab] 325 mg PO BID #60 tablet 09/04/17 Unknown Rx Folic Acid [Folvite] 1 mg PO QDAY #30 tablet 09/04/17 Unknown Rx Magnesium Oxide [Mag-Ox] 400 mg PO QDAY #10 tablet 09/04/17 Unknown Rx Nadolol [Corgard] 20 mg PO QDAY #30 tablet 09/04/17 Unknown Rx Pantoprazole [Protonix TAB] 40 mg PO QDAY #30 tablet 09/04/17 Unknown Rx Rifaximin [Xifaxan] 550 mg PO BID #60 tablet 09/04/17 Unknown Rx Thiamine [Vitamin B-1] 100 mg PO QDAY #30 tablet 09/04/17 Unknown Rx Triamcinolone 0.5% [Kenalog 0.5% 1 applic TP QID #1 tube 09/04/17 Unknown Rx CREAM] Ondansetron [Zofran Odt] 4 mg PO Q8HR PRN #14 tab.rapdis 11/03/18 Unknown Rx traMADol [Ultram] 50 mg PO Q6HR PRN #14 tablet 11/03/18 Unknown Rx ED Physical Exam - Other Other exam information: General: No limitations Head exam: Atraumatic, normocephalic Eyes exam: Icteric sclerae ENT: Moist mucous membrane Neck exam: Normal inspection, full range of motion, no meningismus nontender Respiratory exam: Clear to auscultation bilateral, no wheezes, rales, crackles Cardiovascular: Normal rate and rhythm, normal heart sounds Abdomen: Soft, nondistended, suprapubic tenderness, with normal bowel sounds, no rebound, or guarding Rectal: External hemorrhoid, no active bleeding, guaiac positive brown stool without melena Extremity: Full range of motion normal inspection no deformity Back: Normal Inspection, full range of motion, no tenderness Neurologic: Alert, oriented x3, cranial nerves intact, no motor or sensory d eficit Psychiatric: normal affect, normal mood Skin: Significant psoriasis to extremities worse in the lower extremities as well as bilaterally years. ED Course Vital Signs 12/25/18 12/25/18 12/25/18 16:58 17:00 17:14 Temperature 98.3 F Pulse Rate 77 98 H 93 H Respiratory 11 L 20 18 Rate Blood Pressure 107/68 Blood Pressure [Left] O2 Sat by Pulse 99 Oximetry 12/25/18 12/25/18 12/25/18 17:15 17:17 17:22 Temperature 98.3 F Pulse Rate 94 H 93 H Respiratory 23 20 18 Rate Blood Pressure 102/67 Blood Pressure 107/68 [Left] O2 Sat by Pulse 99 99 99 Oximetry 12/25/18 12/25/18 12/25/18 17:30 17:40 17:50 Temperature Pulse Rate 95 H 97 H 101 H Respiratory 22 21 16 Rate Blood Pressure 92/66 92/66 106/72 Blood Pressure [Left] O2 Sat by Pulse 98 99 Oximetry 12/25/18 12/25/18 12/25/18 18:00 18:10 18:20 Temperature Pulse Rate 95 H 91 H 91 H Respiratory 20 20 15 Rate Blood Pressure 98/61 98/61 81/58 Blood Pressure [Left] O2 Sat by Pulse 99 99 100 Oximetry 12/25/18 12/25/18 12/25/18 18:30 18:40 19:30 Temperature Pulse Rate 97 H 93 H 80 Respiratory 13 17 14 Rate Blood Pressure 101/70 101/70 Blood Pressure 102/72 [Left] O2 Sat by Pulse 97 100 100 Oximetry 12/25/18 12/25/18 12/25/18 21:30 22:01 22:15 Temperature Pulse Rate 74 Respiratory 16 Rate Blood Pressure 94/64 90/63 Blood Pressure 99/78 [Left] O2 Sat by Pulse 99 Oximetry 12/25/18 12/25/18 12/25/18 22:24 22:30 22:45 Temperature Pulse Rate Respiratory 20 Rate Blood Pressure 98/74 98/71 Blood Pressure [Left] O2 Sat by Pulse Oximetry 12/25/18 22:56 Temperature Pulse Rate 74 Respiratory 14 Rate Blood Pressure Blood Pressure 100/69 [Left] O2 Sat by Pulse 100 Oximetry - Consultations Consultation #1: 12/25/18 19:52 case d/w Dr Rocio GREEN, recommends prednisolone at 40 mg daily and a PPI. Will consult ED Medical Decision Making - Lab Data Result diagrams: 12/25/18 17:11 12/25/18 17:11 Lab Results 12/25/18 12/25/18 12/25/18 Range/Units 17:11 17:11 17:11 WBC 5.1 (4.5-11.0) K/mm3 RBC 3.50 L (3.65-5.03) M/mm3 Hgb 12.4 (10.1-14.3) gm/dl Hct 35.2 (30.3-42.9) % MCV 101 H (79-97) fl MCH 35 H (28-32) pg MCHC 35 H (30-34) % RDW 17.8 H (13.2-15.2) % Plt Count 94 L (140-440) K/mm3 Lymph % (Auto) 9.2 L (13.4-35.0) % Amelia % (Auto) 15.2 H (0.0-7.3) % Eos % (Auto) 0.9 (0.0-4.3) % Baso % (Auto) 0.3 (0.0-1.8) % Lymph # 0.5 L (1.2-5.4) K/mm3 Amelia # 0.8 (0.0-0.8) K/mm3 Eos # 0.0 (0.0-0.4) K/mm3 Baso # 0.0 (0.0-0.1) K/mm3 Seg Neutrophils % 74.4 H (40.0-70.0) % Seg Neutrophils # 3.8 (1.8-7.7) K/mm3 PT 25.2 H (12.2-14.9) Sec. INR 2.12 H (0.87-1.13) APTT 45.6 H (24.2-36.6) Sec. Sodium 133 L (137-145) mmol/L Potassium 3.0 L (3.6-5.0) mmol/L Chloride 94.2 L (98-107) mmol/L Carbon Dioxide 25 (22-30) mmol/L Anion Gap 17 mmol/L BUN 2 L (7-17) mg/dL Creatinine 0.2 L (0.7-1.2) mg/dL Estimated GFR > 60 ml/min BUN/Creatinine Ratio 10 % Glucose 123 H (65-100) mg/dL Calcium 7.4 L (8.4-10.2) mg/dL Magnesium 1.70 (1.7-2.3) mg/dL Total Bilirubin 10.80 H (0.1-1.2) mg/dL AST 871 H (5-40) units/L ALT 270 H (7-56) units/L Alkaline Phosphatase 327 H (35-129) units/L Ammonia (25-60) umol/L Total Creatine Kinase 37 (30-135) units/L CK-MB (CK-2) < 1.0 (0.0-4.0) ng/mL CK-MB (CK-2) Rel Index 2.7 (0-4) Troponin T < 0.010 (0.00-0.029) ng/mL Total Protein 6.1 L (6.3-8.2) g/dL Albumin 2.6 L (3.9-5) g/dL Albumin/Globulin Ratio 0.7 % Urine Color (Yellow) Urine Turbidity (Clear) Urine pH (5.0-7.0) Ur Specific [place] (1.003-1.030) Urine Protein (Negative) mg/dL Urine Glucose (UA) (Negative) mg/dL Urine Ketones (Negative) mg/dL Urine Blood (Negative) Urine Nitrite (Negative) Urine Bilirubin (Negative) Urine Urobilinogen (<2.0) mg/dL Ur Leukocyte Esterase (Negative) Urine WBC (Auto) (0.0-6.0) /HPF Urine RBC (Auto) (0.0-6.0) /HPF U Epithel Cells (Auto) (0-13.0) /HPF Urine Bacteria (Auto) (Negative) /HPF Urine Opiates Screen Urine Methadone Screen Ur Barbiturates Screen Ur Phencyclidine Scrn Ur Amphetamines Screen U Benzodiazepines Scrn Urine Cocaine Screen U Marijuana (THC) Screen Drugs of Abuse Note Plasma/Serum Alcohol (0-0.07) % 12/25/18 12/25/18 12/25/18 Range/Units 17:11 17:11 17:40 WBC (4.5-11.0) K/mm3 RBC (3.65-5.03) M/mm3 Hgb (10.1-14.3) gm/dl Hct (30.3-42.9) % MCV (79-97) fl MCH (28-32) pg MCHC (30-34) % RDW (13.2-15.2) % Plt Count (140-440) K/mm3 Lymph % (Auto) (13.4-35.0) % Amelia % (Auto) (0.0-7.3) % Eos % (Auto) (0.0-4.3) % Baso % (Auto) (0.0-1.8) % Lymph # (1.2-5.4) K/mm3 Amelia # (0.0-0.8) K/mm3 Eos # (0.0-0.4) K/mm3 Baso # (0.0-0.1) K/mm3 Seg Neutrophils % (40.0-70.0) % Seg Neutrophils # (1.8-7.7) K/mm3 PT (12.2-14.9) Sec. INR (0.87-1.13) APTT (24.2-36.6) Sec. Sodium (137-145) mmol/L Potassium (3.6-5.0) mmol/L Chloride (98-107) mmol/L Carbon Dioxide (22-30) mmol/L Anion Gap mmol/L BUN (7-17) mg/dL Creatinine (0.7-1.2) mg/dL Estimated GFR ml/min BUN/Creatinine Ratio % Glucose (65-100) mg/dL Calcium (8.4-10.2) mg/dL Magnesium (1.7-2.3) mg/dL Total Bilirubin (0.1-1.2) mg/dL AST (5-40) units/L ALT (7-56) units/L Alkaline Phosphatase (35-129) units/L Ammonia 24.0 L (25-60) umol/L Total Creatine Kinase (30-135) units/L CK-MB (CK-2) (0.0-4.0) ng/mL CK-MB (CK-2) Rel Index (0-4) Troponin T (0.00-0.029) ng/mL Total Protein (6.3-8.2) g/dL Albumin (3.9-5) g/dL Albumin/Globulin Ratio % Urine Color Laura (Yellow) Urine Turbidity Clear (Clear) Urine pH 7.0 (5.0-7.0) Ur Specific [place] 1.002 L (1.003-1.030) Urine Protein <15 mg/dl (Negative) mg/dL Urine Glucose (UA) Neg (Negative) mg/dL Urine Ketones Neg (Negative) mg/dL Urine Blood Mod (Negative) Urine Nitrite Neg (Negative) Urine Bilirubin Neg (Negative) Urine Urobilinogen < 2.0 (<2.0) mg/dL Ur Leukocyte Esterase Tr (Negative) Urine WBC (Auto) 0.0 (0.0-6.0) /HPF Urine RBC (Auto) 1.0 (0.0-6.0) /HPF U Epithel Cells (Auto) 1.0 (0-13.0) /HPF Urine Bacteria (Auto) 1+ (Negative) /HPF Urine Opiates Screen Urine Methadone Screen Ur Barbiturates Screen Ur Phencyclidine Scrn Ur Amphetamines Screen U Benzodiazepines Scrn Urine Cocaine Screen U Marijuana (THC) Screen Drugs of Abuse Note Plasma/Serum Alcohol 0.22 H (0-0.07) % 12/25/18 Range/Units 17:40 WBC (4.5-11.0) K/mm3 RBC (3.65-5.03) M/mm3 Hgb (10.1-14.3) gm/dl Hct (30.3-42.9) % MCV (79-97) fl MCH (28-32) pg MCHC (30-34) % RDW (13.2-15.2) % Plt Count (140-440) K/mm3 Lymph % (Auto) (13.4-35.0) % Amelia % (Auto) (0.0-7.3) % Eos % (Auto) (0.0-4.3) % Baso % (Auto) (0.0-1.8) % Lymph # (1.2-5.4) K/mm3 Amelia # (0.0-0.8) K/mm3 Eos # (0.0-0.4) K/mm3 Baso # (0.0-0.1) K/mm3 Seg Neutrophils % (40.0-70.0) % Seg Neutrophils # (1.8-7.7) K/mm3 PT (12.2-14.9) Sec. INR (0.87-1.13) APTT (24.2-36.6) Sec. Sodium (137-145) mmol/L Potassium (3.6-5.0) mmol/L Chloride (98-107) mmol/L Carbon Dioxide (22-30) mmol/L Anion Gap mmol/L BUN (7-17) mg/dL Creatinine (0.7-1.2) mg/dL Estimated GFR ml/min BUN/Creatinine Ratio % Glucose (65-100) mg/dL Calcium (8.4-10.2) mg/dL Magnesium (1.7-2.3) mg/dL Total Bilirubin (0.1-1.2) mg/dL AST (5-40) units/L ALT (7-56) units/L Alkaline Phosphatase (35-129) units/L Ammonia (25-60) umol/L Total Creatine Kinase (30-135) units/L CK-MB (CK-2) (0.0-4.0) ng/mL CK-MB (CK-2) Rel Index (0-4) Troponin T (0.00-0.029) ng/mL Total Protein (6.3-8.2) g/dL Albumin (3.9-5) g/dL Albumin/Globulin Ratio % Urine Color (Yellow) Urine Turbidity (Clear) Urine pH (5.0-7.0) Ur Specific [place] (1.003-1.030) Urine Protein (Negative) mg/dL Urine Glucose (UA) (Negative) mg/dL Urine Ketones (Negative) mg/dL Urine Blood (Negative) Urine Nitrite (Negative) Urine Bilirubin (Negative) Urine Urobilinogen (<2.0) mg/dL Ur Leukocyte Esterase (Negative) Urine WBC (Auto) (0.0-6.0) /HPF Urine RBC (Auto) (0.0-6.0) /HPF U Epithel Cells (Auto) (0-13.0) /HPF Urine Bacteria (Auto) (Negative) /HPF Urine Opiates Screen Presumptive negative Urine Methadone Screen Presumptive negative Ur Barbiturates Screen Presumptive negative Ur Phencyclidine Scrn Presumptive negative Ur Amphetamines Screen Presumptive negative U Benzodiazepines Scrn Presumptive negative Urine Cocaine Screen Presumptive negative U Marijuana (THC) Screen Presumptive negative Drugs of Abuse Note Disclamer Plasma/Serum Alcohol (0-0.07) % - EKG Data -: EKG Interpreted by Me EKG shows normal: sinus rhythm, axis (qrs 31), QRS complexes (qrsd 193), ST-T waves (no stemi) Rate: normal (92) - Radiology Data Radiology results: report reviewed PROCEDURE: CT ABDOMEN PELVIS W CON TECHNIQUE: Computerized axial tomography of the abdomen and pelvis was performed with intravenous contrast. CT DOSE LENGTH PRODUCT: 544.1 mGycm HISTORY: lower abd pain, liver cirrhosis COMPARISONS: Ultrasound abdomen 11/12/2016 . FINDINGS: Visualized lower thorax: No significant abnormality. Liver: Liver is diffusely decreased in density consistent with diffuse moderate fatty liver with focal areas of sparing. There is mild lobulation of contour suggesting cirrhosis. This also accounts for the heterogeneous enhancement pattern throughout the liver. Spleen: Normal size and attenuation. Gallbladder and biliary system: Gallstones in the gallbladder are noted.. Pancreas: Normal. Adrenals: Normal. Kidneys: Normal. GI tract: There is diffuse concentric wall thickening of the entire colon. There is also diffuse concentric wall thickening of the stomach. There is wall thickening of the duodenum . The jejunum and ileum appear normal. Differential includes enteritis and colitis as well as Crohn's disease. Lymph nodes and mesentery: There is a 1 cm lymph node medial to the right femoral artery (axial image 175/191).. Vasculature: Normal.. Bladder: Normal. Reproductive organs: Normal. Peritoneum: There is moderate ascites around the liver, in the paracolic gutters, and in the pelvis.. Musculoskeletal structures: Degenerative disc narrowing at L5-S1 is noted with spurring anteriorly and posteriorly. Other: There are 2 ventral hernias in the left lower quadrant, both of which contain fat and mesenteric vessels which are otherwise normal. There are also subcutaneous varices along the intra- abdominal wall. IMPRESSION: 1. The liver demonstrates evidence for cirrhosis and fatty metamorphosis 2. Diffuse edema of the wall involving the entire stomach, duodenum, and the entire colon. Differential includes enteritis and colitis as well as Crohn's disease. 3. Cholelithiasis 4. Ascites 5. 2 ventral hernias containing mesenteric vessels and fat in the left lower quadrant 6. Single borderline lymph node in the right groin PROCEDURE: XR CHEST 1V AP TECHNIQUE: Chest radiograph single view. HISTORY: cp COMPARISONS: X-ray chest and CT angiogram chest dated May 23, 2017 . The re ports of those studies are not available for review at the time of this dictation. FINDINGS: There is no evidence of infiltrate, pneumothorax or pleural fluid collection. The cardiac silhouette appears to be enlarged. This may be exaggerated by portable technique. The thoracic aorta and bony structures are unremarkable. Visualization of detail of the thoracic spine is limited. IMPRESSION: 1. No evidence of an acute pulmonary process. 2. Enlarged cardiac silhouette. This may be exaggerated by portable technique. - Medical Decision Making Case discussed with GI. Prednisolone and PPI recommended. He consider additional treatment during admission Hospitalist informed of admission - Differential Diagnosis chronic pain, psoriasis, cellulitis, liver disease Critical Care Time: No Critical care attestation.: If time is entered above; I have spent that time in minutes in the direct care of this critically ill patient, excluding procedure time. ED Disposition Clinical Impression: Coagulopathy, Alcoholic cirrhosis of liver with ascites, Liver failure without hepatic coma, Alcohol abuse, Psoriasis, Generalized pain, Cholelithiasis, Hypokalemia, Thrombocytopenia Disposition: 09 OP ADMIT IP TO THIS HOSP Is pt being admited?: Yes Condition: Stable Time of Disposition: 19:53 (Dr Hernandes/hospitalist)
[2018-12-25 17:40] LABS: Basophils % (Auto) 0.3 % (0.0-1.8); Eosinophils % (Auto) 0.9 % (0.0-4.3); Hematocrit 35.2 % (30.3-42.9); Hemoglobin 12.4 gm/dl (10.1-14.3); Lymphocytes # (Auto) 0.5 K/mm3 (1.2-5.4); Lymphocytes % (Auto) 9.2 % (13.4-35.0); Mean Corpuscular HGB Conc 35 % (30-34); Mean Corpuscular Volume 101 fl (79-97); Monocytes # (Auto) 0.8 K/mm3 (0.0-0.8); Monocytes % (Auto) 15.2 % (0.0-7.3); Red Cell Distribution Width 17.8 % (13.2-15.2)
[2018-12-25 17:59] LABS: Alanine Aminotransferase 270 units/L (7-56); Albumin 2.6 g/dL (3.9-5); BUN/Creatinine Ratio 10; Blood Urea Nitrogen 2 mg/dL (7-17); Calcium 7.4 mg/dL (8.4-10.2); Hemolysis Index 0
[2018-12-25 18:02] LABS: Creatine Kinase MB < 1.0 ng/mL (0.0-4.0)
[2018-12-25] MEDS ORDERED: K-DUR PO ONE (18:02)
[2018-12-25 18:09] LABS: INR 2.12 (0.87-1.13)
[2018-12-25 18:10] LABS: Partial Thromboplastin Time 45.6 Sec. (24.2-36.6)
[2018-12-25 18:22] LABS: Bacteria,Urine 1+ /HPF (Negative); Bilirubin,Urine NEG (Negative); Blood,Urine MOD (Negative); Color,Urine Amber (Yellow); Protein,Urine <15 mg/dL mg/dL (Negative); Urobilinogen,Urine < 2.0 mg/dL (<2.0)
[2018-12-25 18:24] LABS: Platelet Count 94 K/mm3 (140-440)
[2018-12-25 18:26] LABS: Amphetamine Screen,Urine PRESUMPTIVE NEGATIVE; Benzodiazepines Screen,Urine PRESUMPTIVE NEGATIVE; Cannabinoid Screen,Urine PRESUMPTIVE NEGATIVE; Cocaine Screen,Urine PRESUMPTIVE NEGATIVE; Methadone Screen,Urine PRESUMPTIVE NEGATIVE; Opiate Screen,Urine PRESUMPTIVE NEGATIVE
[2018-12-25] MEDS ORDERED: ZOFRAN IV ONE (19:18)
--- NOTE | 2018-12-25 19:25 | Cat Scan Report ---
PROCEDURE: CT ABDOMEN PELVIS W CON TECHNIQUE: Computerized axial tomography of the abdomen and pelvis was performed with intravenous co ntrast. CT DOSE LENGTH PRODUCT: 544.1 mGycm HISTORY: lower abd pain, liver cirrhosis COMPARISONS: Ultrasound abdomen 11/12/2016 . FINDINGS: Visualized lower thorax: No significant abnormality. Liver: Liver is diffusely decreased in density consistent with diffuse moderate fatty liver with foca l areas of sparing. There is mild lobulation of contour suggesting cirrhosis. This also accounts for the heterogeneous enhancement pattern throughout the liver. Spleen: Normal size and attenuation. Gallbladder and biliary system: Gallstones in the gallbladder are noted.. Pancreas: Normal. Adrenals: Normal. Kidneys: Normal. GI tract: There is diffuse concentric wall thickening of the entire colon. There is also diffuse con centric wall thickening of the stomach. There is wall thickening of the duodenum . The jejunum and il eum appear normal. Differential includes enteritis and colitis as well as Crohn's disease. Lymph nodes and mesentery: There is a 1 cm lymph node medial to the right femoral artery (axial image 175/191).. Vasculature: Normal.. Bladder: Normal. Reproductive organs: Normal. Peritoneum: There is moderate ascites around the liver, in the paracolic gutters, and in the pelvis.. Musculoskeletal structures: Degenerative disc narrowing at L5-S1 is noted with spurring anteriorly an d posteriorly. Other: There are 2 ventral hernias in the left lower quadrant, both of which contain fat and mesente cherie vessels which are otherwise normal. There are also subcutaneous varices along the intra-abdominal wall. IMPRESSION: 1. The liver demonstrates evidence for cirrhosis and fatty metamorphosis 2. Diffuse edema of the wall involving the entire stomach, duodenum, and the entire colon. Differenti al includes enteritis and colitis as well as Crohn's disease. 3. Cholelithiasis 4. Ascites 5. 2 ventral hernias containing mesenteric vessels and fat in the left lower quadrant 6. Single borderline lymph node in the right groin This document is electronically signed by Denise Quinteros MD., December 25 2018 07:22:55 PM ET
--- NOTE | 2018-12-25 19:25 | XRay Report ---
PROCEDURE: XR CHEST 1V AP TECHNIQUE: Chest radiograph single view. HISTORY: cp COMPARISONS: X-ray chest and CT angiogram chest dated May 23, 2017 . The reports of those studies are not available for review at the time of this dictation. FINDINGS: There is no evidence of infiltrate, pneumothorax or pleural fluid collection. The cardiac silhouette appears to be enlarged. This may be exaggerated by portable technique. The thoracic aorta and bony structures are unremarkable. Visualization of detail of the thoracic spin e is limited. IMPRESSION: 1. No evidence of an acute pulmonary process. 2. Enlarged cardiac silhouette. This may be exaggerated by portable technique. This document is electronically signed by Rachelle Barcenas MD., December 25 2018 07:22:52 PM ET
[2018-12-25] MEDS ORDERED: ORAPRED PO ONE (19:48)
[2018-12-25] MEDS ORDERED: PROTONIX IV ONE (19:50)
--- NOTE | 2018-12-25 20:56 | Ultrasound Report ---
PROCEDURE: US ABDOMEN COMPLETE TECHNIQUE: Real-time sonography in multiple planes of the abdomen was performed with image documenta tion. HISTORY: elevated LFT'S, hx of cirrhosis COMPARISONS: Ultrasound RUQ 11/12/2016, CT A/P 12/25/2018 . FINDINGS: Liver: Normal size but heterogeneous and increased in echotexture with no evidence of cystic or meño d mass lesions. Findings are consistent with cirrhosis and probable underlying fatty liver. Gallbladder: Multiple gallstones are noted in the gallbladder. Small amount of pericholecystic fluid is noted. No wall thickening or sonographic Regalado's sign. Intrahepatic bile ducts: Normal caliber . Extrahepatic bile ducts: Normal caliber. The common bile duct measures 4.1 mm in diameter Pancreas: Normal as visualized with suboptimal depiction of the pancreatic tail. Aorta: Visualized portions appear normal. Aorta measures 1.7 cm in diameter IVC: Visualized portions appear normal. RIGHT kidney: Normal echotexture. No focal renal mass, calculus, or hydronephrosis. Length: 12.4 c m. LEFT kidney: Normal echotexture. No focal renal mass, calculus, or hydronephrosis. Length: 12.8 cm . Spleen: Normal size and echotexture. No focal lesions. The spleen measures 11.9 cm in length Intraperitoneal fluid: A small amount of ascites around the liver. . Other: None . IMPRESSION: 1. The liver is heterogeneous and increased in echogenicity, unchanged. Findings are consistent with cirrhosis and probable underlying fatty liver 2. Cholelithiasis with pericholecystic fluid. However, the gallbladder wall is normal in thickness. S imilar findings are noted previously 3. Ascites around the liver This document is electronically signed by Denise Quinteros MD., December 25 2018 08:54:35 PM ET
[2018-12-25] MEDS ORDERED: SODIUM CHLORIDE FLUSH SYRINGE 10 ML IV PRN (21:55)
[2018-12-25] MEDS ORDERED: REGLAN IV PRN (21:55)
[2018-12-25] MEDS ORDERED: ZOFRAN IV PRN (21:55)
[2018-12-25] MEDS ORDERED: AMBIEN PO PRN (21:55)
[2018-12-25] MEDS ORDERED: IBUPROFEN PO PRN (22:06)
[2018-12-25] MEDS ORDERED: DILAUDID ONE (22:17)
--- NOTE | 2018-12-25 22:19 | History and Physical Report ---
History of Present Illness Date of examination: 12/25/18 Chief complaint: Bilateral leg swelling History of present illness: Patient is a 48-year-old female with history of cirrhosis of the liver who presented to the ED on account of 3 days history of bilateral leg swelling with pain. She has associated left-sided abdominal pain, yellow eyes, chills without fever, chest pain, headaches, nausea with vomiting 2 episodes and lightheadedness. She denies shortness of breath, palpitation, diaphoresis, cough, orthopnea or PND. Past History Past Medical History: anemia, arthritis, hypertension (portal), other (cirrhosis of the liver, psoriasis, anxiety and depression) Past Surgical History: appendectomy Social history: smoking (history of cigarette smoking of 10 years duration. She currently smokes few sticks per day), alcohol abuse (of 12 years and she continues to drink. Her last drink per pt was yesterday), other (she denies illicit drug use) Family history: other (mother from ovarian cancer at 70 years old) Medications and Allergies Allergies Allergy/AdvReac Type Severity Reaction Status Date / Time No Known Allergies Allergy Verified 11/12/16 08:43 Home Medications Medication Instructions Recorded Confirmed Last Taken Type FLUoxetine [PROzac] 20 mg PO QDAY #14 capsule 09/04/17 Unknown Rx Ferrous Sulfate [Feosol 325 MG tab] 325 mg PO BID #60 tablet 09/04/17 Unknown Rx Folic Acid [Folvite] 1 mg PO QDAY #30 tablet 09/04/17 Unknown Rx Magnesium Oxide [Mag-Ox] 400 mg PO QDAY #10 tablet 09/04/17 Unknown Rx Nadolol [Corgard] 20 mg PO QDAY #30 tablet 09/04/17 Unknown Rx Pantoprazole [Protonix TAB] 40 mg PO QDAY #30 tablet 09/04/17 Unknown Rx Rifaximin [Xifaxan] 550 mg PO BID #60 tablet 09/04/17 Unknown Rx Thiamine [Vitamin B-1] 100 mg PO QDAY #30 tablet 09/04/17 Unknown Rx Triamcinolone 0.5% [Kenalog 0.5% 1 applic TP QID #1 tube 09/04/17 Unknown Rx CREAM] Ondansetron [Zofran Odt] 4 mg PO Q8HR PRN #14 tab.rapdis 11/03/18 Unknown Rx traMADol [Ultram] 50 mg PO Q6HR PRN #14 tablet 11/03/18 Unknown Rx Active Meds: Active Medications Clobetasol Propionate (Temovate) 1 applic TP BID FOREIGN Famotidine (Pepcid) 10 mg IV BID FOREIGN Hydromorphone HCl (Dilaudid) 1 mg IV Q3H PRN PRN Reason: Pain , Severe (7-10) Ceftriaxone Sodium (Rocephin/Ns 1 Gm/50 Ml) 1 gm in 50 mls @ 100 mls/hr IV Q24HR FOREIGN; Protocol Metronidazole (Flagyl 500 Mg/100 Ml) 500 mg in 100 mls @ 100 mls/hr IV Q8HR FOREIGN; Protocol Potassium Chloride (Kcl 10meq/100ml) 10 meq in 100 mls @ 100 mls/hr IV Q1H FOREIGN Stop: 12/26/18 00:59 Ibuprofen (Ibuprofen) 400 mg PO Q6H PRN PRN Reason: Pain, Mild (1-3) Metoclopramide HCl (Reglan) 10 mg IV Q6H PRN PRN Reason: Nausea And Vomiting Ondansetron HCl (Zofran) 4 mg IV Q8H PRN PRN Reason: Nausea And Vomiting Oxycodone HCl (Roxicodone) 5 mg PO Q4H PRN PRN Reason: Pain, Moderate (4-6) Sodium Chloride (Sodium Chloride Flush Syringe 10 Ml) 10 ml IV BID [facility] Sodium Chloride (Sodium Chloride Flush Syringe 10 Ml) 10 ml IV PRN PRN PRN Reason: LINE FLUSH Zolpidem Tartrate (Ambien) 5 mg PO QHS PRN PRN Reason: Insomnia Review of Systems All systems: negative (except as documented in the HPI, 14 point system reviewed were negative) Exam - Constitutional Vitals: Temp Pulse Resp BP Pulse Ox 98.3 F 93 H 18 107/68 99 12/25/18 17:22 12/25/18 17:22 12/25/18 17:22 12/25/18 17:22 12/25/18 17:22 General appearance: Present: no acute distress, disheveled - EENT Eyes: Present: PERRL, EOM intact, scleral icterus ENT: hearing intact, clear oral mucosa - Neck Neck: Present: supple - Respiratory Respiratory effort: normal Respiratory: bilateral: CTA - Cardiovascular Rhythm: regular Heart Sounds: Present: S1 & S2 - Extremities Extremities: No edema Peripheral Pulses: within normal limits - Abdominal General gastrointestinal: Present: soft, tender (generalized tenderness, no rebound or guarding), distended, normal bowel sounds Female genitourinary: Present: deferred - Integumentary Integumentary: Present: rash (on bilateral lower extremities) - Musculoskeletal Musculoskeletal: generalized weakness - Psychiatric Psychiatric: cooperative - Neurologic Neurologic: moves all extremities Results - Labs CBC & Chem 7: 12/25/18 17:11 12/25/18 17:11 Labs: Laboratory Last Values WBC 5.1 K/mm3 (4.5-11.0) 12/25/18 17:11 RBC 3.50 M/mm3 (3.65-5.03) L 12/25/18 17:11 Hgb 12.4 gm/dl (10.1-14.3) 12/25/18 17:11 Hct 35.2 % (30.3-42.9) 12/25/18 17:11 MCV 101 fl (79-97) H 12/25/18 17:11 MCH 35 pg (28-32) H 12/25/18 17:11 MCHC 35 % (30-34) H 12/25/18 17:11 RDW 17.8 % (13.2-15.2) H 12/25/18 17:11 Plt Count 94 K/mm3 (140-440) L 12/25/18 17:11 Lymph % (Auto) 9.2 % (13.4-35.0) L 12/25/18 17:11 [place] % (Auto) 15.2 % (0.0-7.3) H 12/25/18 17:11 Eos % (Auto) 0.9 % (0.0-4.3) 12/25/18 17:11 Baso % (Auto) 0.3 % (0.0-1.8) 12/25/18 17:11 Lymph # 0.5 K/mm3 (1.2-5.4) L 12/25/18 17:11 [place] # 0.8 K/mm3 (0.0-0.8) 12/25/18 17:11 Eos # 0.0 K/mm3 (0.0-0.4) 12/25/18 17:11 Baso # 0.0 K/mm3 (0.0-0.1) 12/25/18 17:11 Seg Neutrophils % 74.4 % (40.0-70.0) H 12/25/18 17:11 Seg Neutrophils # 3.8 K/mm3 (1.8-7.7) 12/25/18 17:11 PT 25.2 Sec. (12.2-14.9) H 12/25/18 17:11 INR 2.12 (0.87-1.13) H 12/25/18 17:11 APTT 45.6 Sec. (24.2-36.6) H 12/25/18 17:11 Sodium 133 mmol/L (137-145) L 12/25/18 17:11 Potassium 3.0 mmol/L (3.6-5.0) L 12/25/18 17:11 Chloride 94.2 mmol/L (98-107) L 12/25/18 17:11 Carbon Dioxide 25 mmol/L (22-30) 12/25/18 17:11 17 mmol/L 12/25/18 17:11 BUN 2 mg/dL (7-17) L 12/25/18 17:11 0.2 mg/dL (0.7-1.2) L 12/25/18 17:11 Estimated GFR > 60 ml/min 12/25/18 17:11 10 % 12/25/18 17:11 Glucose 123 mg/dL (65-100) H 12/25/18 17:11 Calcium 7.4 mg/dL (8.4-10.2) L 12/25/18 17:11 Magnesium 1.70 mg/dL (1.7-2.3) 12/25/18 17:11 10.80 mg/dL (0.1-1.2) H 12/25/18 17:11 AST 871 units/L (5-40) H 12/25/18 17:11 ALT 270 units/L (7-56) H 12/25/18 17:11 327 units/L (35-129) H 12/25/18 17:11 24.0 umol/L (25-60) L 12/25/18 17:11 37 units/L (30-135) 12/25/18 17:11 CK-MB (CK-2) < 1.0 ng/mL (0.0-4.0) 12/25/18 17:11 CK-MB (CK-2) Rel Index 2.7 (0-4) 12/25/18 17:11 < 0.010 ng/mL (0.00-0.029) 12/25/18 17:11 6.1 g/dL (6.3-8.2) L 12/25/18 17:11 2.6 g/dL (3.9-5) L 12/25/18 17:11 0.7 % 12/25/18 17:11 Laura (Yellow) 12/25/18 17:40 Clear (Clear) 12/25/18 17:40 7.0 (5.0-7.0) 12/25/18 17:40 Ur Specific [place] 1.002 (1.003-1.030) L 12/25/18 17:40 <15 mg/dl mg/dL (Negative) 12/25/18 17:40 Neg mg/dL (Negative) 12/25/18 17:40 Neg mg/dL (Negative) 12/25/18 17:40 Mod (Negative) 12/25/18 17:40 Neg (Negative) 12/25/18 17:40 Neg (Negative) 12/25/18 17:40 < 2.0 mg/dL (<2.0) 12/25/18 17:40 Ur Leukocyte Esterase Tr (Negative) 12/25/18 17:40 0.0 /HPF (0.0-6.0) 12/25/18 17:40 1.0 /HPF (0.0-6.0) 12/25/18 17:40 U Epithel Cells (Auto) 1.0 /HPF (0-13.0) 12/25/18 17:40 1+ /HPF (Negative) 12/25/18 17:40 Presumptive negative 12/25/18 17:40 Presumptive negative 12/25/18 17:40 Ur Barbiturates Screen Presumptive negative 12/25/18 17:40 Ur Phencyclidine Scrn Presumptive negative 12/25/18 17:40 Ur Amphetamines Screen Presumptive negative 12/25/18 17:40 U Benzodiazepines Scrn Presumptive negative 12/25/18 17:40 Presumptive negative 12/25/18 17:40 U Marijuana (THC) Screen Presumptive negative 12/25/18 17:40 Disclamer 12/25/18 17:40 Plasma/Serum Alcohol 0.22 % (0-0.07) H 12/25/18 17:11 Assessment and Plan Assessment and plan: Alcoholic cirrhosis of the liver with small ascites and portal hypertension -We will resume home medications -GI consulted in the ED Colitis/ileitis per CT abdomen/pelvis -On IV antibiotics with Rocephin and Flagyl Moderate to severe psoriasis with acute flare -On topical steroid Atypical Chest pain, rule out ACS -Serial troponin level monitoring Hypokalemia -We'll replete and monitor level Hyponatremia -On oral fluid restriction, will monitor sodium level Alcohol intoxication with high risk for alcohol withdrawal -On alcohol withdrawal prophylaxis -Patient counseled on alcohol cessation Anemia of chronic disease -H/H stable Coagulopathy disorder -No evidence of acute bleed Moderate protein calorie malnutrition -Dietitian consulted DVT prophylaxis with SCD and GI prophylaxis with famotidine Disposition: Overall prognosis is poor. For discharge when clinically stable Time spent: 40 minutes
[2018-12-25] MEDS: DILAUDID IV PRN (22:24)
[2018-12-25] MEDS: PEPCID IV SCH (22:24)
[2018-12-25] MEDS: SODIUM CHLORIDE FLUSH SYRINGE 10 ML IV SCH (22:24)
[2018-12-25] MEDS ORDERED: ATIVAN IV PRN (22:33)
[2018-12-25] MEDS ORDERED: ROCEPHIN/NS 1 GM/50 ML 1 GM/50 ML BAG IV ONE (22:51)
[2018-12-25] MEDS: ROCEPHIN/NS 1 GM/50 ML 1 GM/50 ML BAG IV SCH (22:52)
[2018-12-26] MEDS: VITAMIN B-1 PO SCH ×2 (01:23→10:29)
[2018-12-26] MEDS: TEMOVATE TP SCH ×3 (01:24→21:38)
[2018-12-26] MEDS: DILAUDID IV PRN ×4 (01:28→15:38)
[2018-12-26] MEDS: KCL 10MEQ/100ML 10 MEQ/100 ML BAG IV SCH ×2 (01:32→02:35)
[2018-12-26] MEDS: FLAGYL 500 MG/100 ML 500 MG/100 ML BAG IV SCH ×5 (01:39→21:39)
[2018-12-26] MEDS: ROXICODONE PO PRN (05:40)
[2018-12-26 07:44] LABS: Alanine Aminotransferase 235 units/L (7-56); Albumin 2.7 g/dL (3.9-5); BUN/Creatinine Ratio 10; Blood Urea Nitrogen 2 mg/dL (7-17); Calcium 7.3 mg/dL (8.4-10.2); Hemolysis Index 0
[2018-12-26] MEDS: PEPCID IV SCH ×2 (10:29→21:37)
[2018-12-26] MEDS: FOLVITE PO SCH (10:29)
[2018-12-26] MEDS: THERAGRAN Tab PO SCH (10:29)
[2018-12-26] MEDS: SODIUM CHLORIDE FLUSH SYRINGE 10 ML IV SCH ×2 (10:30→21:39)
[2018-12-26] MEDS ORDERED: AFLURIA QUAD 2018-2019 SYRINGE IM ONE (12:00)
[2018-12-26] MEDS ORDERED: PNEUMOVAX 23 IM ONE (12:00)
--- NOTE | 2018-12-26 13:07 | Progress Note ---
Assessment and Plan Assessment and plan: Patient is a 48-year-old woman with a history of tobacco dependecny, cirrhosis of the liver anemia, arthritis, portal hypertension, psoriasis, anxiety and depression who presented to [facility] ED with leg swelling and pains. ETOH level was 0.22 (normal less than 0.07). * CT abd/pelvis with iv contrast IMPRESSION: 1. The liver demonstrates evidence for cirrhosis and fatty metamorphosis 2. Diffuse edema of the wall involving the entire stomach, duodenum, and the entire colon. Differential includes enteritis and colitis as well as Crohn's disease. 3. Cholelithiasis 4. Ascites 5. 2 ventral hernias containing mesenteric vessels and fat in the left lower quadrant 6. Single borderline lymph node in the right groin * pCXR IMPRESSION: 1. No evidence of an acute pulmonary process. 2. Enlarged cardiac silhouette. This may be exaggerated by portable technique. Acute on chronic liver failure: GI to evaluate Alcoholic cirrhosis of the liver with small ascites and portal hypertension -We will resume home medications -GI consulted in the ED Colitis/ileitis per CT abdomen/pelvis -On IV antibiotics with Rocephin and Flagyl Moderate to severe psoriasis with acute flare -On topical steroid Atypical Chest pain, rule out ACS -Serial troponin level monitoring Hypokalemia -We'll replete and monitor level Hyponatremia -On oral fluid restriction, will monitor sodium level Alcohol intoxication with high risk for alcohol withdrawal -On alcohol withdrawal prophylaxis -Patient counseled on alcohol cessation Anemia of chronic disease -H/H stable Coagulopathy disorder -No evidence of acute bleed treat with vitamin k Severe instead of Moderate protein calorie malnutrition, poa -Dietitian consulted DVT prophylaxis with SCD and GI prophylaxis with famotidine Disposition: Overall prognosis is poor. She wants her son Brennen to make medical decision for her followed by [facility] in the event she is unable to make decisions for herself. For discharge when clinically stable History Interval history: Patient was seen and examined. Follow-up on current diagnosis. No overnight events reported to me. Patient denies any chest pain, shortness breath, nausea/vomiting or severe headaches. Imaging, nursing note, chart, labs and old chart reviewed. Discussed with patient. Hospitalist Physical - Physical exam Narrative exam: Gen: ill appearing, cachetic NAD, Awake, Alert, Orientated HEENT: NCAT, EOMI, PERRL, OP Clear, bilateral ears red, with crusty lesion, excoriations with drainage. Neck: supple, no adenopathy, no thyromegaly, no JVD CVS/Heart: RRR, normal S1S2, pulses present bilaterally Chest/Lungs: diminihsed bs bilaterally, Symmetrical chest expansion, good air entry bilaterally GI/Abdomen: distended, diffuse tenderness, good bowel sounds, no guarding or rebound /Bladder: no suprapubic tenderness, no CVA or paraspinal tenderness Extermity/Skin: ble edema MSK: FROM x 4 Neuro: CN 2-12 grossly intact, no new focal deficits Psych: calm - Constitutional Vitals: Temp Pulse Resp BP Pulse Ox 98.3 F 83 18 96/65 98 12/26/18 11:44 12/26/18 11:44 12/26/18 11:44 12/26/18 11:44 12/26/18 11:44 General appearance: Present: no acute distress, disheveled Results - Labs CBC & Chem 7: 12/25/18 17:11 12/26/18 06:23 Labs: Laboratory Last Values WBC 5.1 K/mm3 (4.5-11.0) 12/25/18 17:11 RBC 3.50 M/mm3 (3.65-5.03) L 12/25/18 17:11 Hgb 12.4 gm/dl (10.1-14.3) 12/25/18 17:11 Hct 35.2 % (30.3-42.9) 12/25/18 17:11 MCV 101 fl (79-97) H 12/25/18 17:11 MCH 35 pg (28-32) H 12/25/18 17:11 MCHC 35 % (30-34) H 12/25/18 17:11 RDW 17.8 % (13.2-15.2) H 12/25/18 17:11 Plt Count 94 K/mm3 (140-440) L 12/25/18 17:11 Lymph % (Auto) 9.2 % (13.4-35.0) L 12/25/18 17:11 [place] % (Auto) 15.2 % (0.0-7.3) H 12/25/18 17:11 Eos % (Auto) 0.9 % (0.0-4.3) 12/25/18 17:11 Baso % (Auto) 0.3 % (0.0-1.8) 12/25/18 17:11 Lymph # 0.5 K/mm3 (1.2-5.4) L 12/25/18 17:11 [place] # 0.8 K/mm3 (0.0-0.8) 12/25/18 17:11 Eos # 0.0 K/mm3 (0.0-0.4) 12/25/18 17:11 Baso # 0.0 K/mm3 (0.0-0.1) 12/25/18 17:11 Seg Neutrophils % 74.4 % (40.0-70.0) H 12/25/18 17:11 Seg Neutrophils # 3.8 K/mm3 (1.8-7.7) 12/25/18 17:11 PT 25.2 Sec. (12.2-14.9) H 12/25/18 17:11 INR 2.12 (0.87-1.13) H 12/25/18 17:11 APTT 45.6 Sec. (24.2-36.6) H 12/25/18 17:11 Sodium 137 mmol/L (137-145) 12/26/18 06:23 Potassium 4.1 mmol/L (3.6-5.0) D 12/26/18 06:23 Chloride 99.2 mmol/L (98-107) 12/26/18 06:23 Carbon Dioxide 24 mmol/L (22-30) 12/26/18 06:23 18 mmol/L 12/26/18 06:23 BUN 2 mg/dL (7-17) L 12/26/18 06:23 < 0.2 mg/dL (0.7-1.2) L 12/26/18 06:23 Estimated GFR > 60 ml/min 12/26/18 06:23 10 % 12/26/18 06:23 Glucose 162 mg/dL (65-100) H 12/26/18 06:23 Calcium 7.3 mg/dL (8.4-10.2) L 12/26/18 06:23 Magnesium 1.70 mg/dL (1.7-2.3) 12/25/18 17:11 10.70 mg/dL (0.1-1.2) H 12/26/18 06:23 AST 550 units/L (5-40) H 12/26/18 06:23 ALT 235 units/L (7-56) H 12/26/18 06:23 328 units/L (35-129) H 12/26/18 06:23 24.0 umol/L (25-60) L 12/25/18 17:11 37 units/L (30-135) 12/25/18 17:11 CK-MB (CK-2) < 1.0 ng/mL (0.0-4.0) 12/25/18 17:11 CK-MB (CK-2) Rel Index 2.7 (0-4) 12/25/18 17:11 < 0.010 ng/mL (0.00-0.029) 12/26/18 00:56 6.2 g/dL (6.3-8.2) L 12/26/18 06:23 2.7 g/dL (3.9-5) L 12/26/18 06:23 0.8 % 12/26/18 06:23 Laura (Yellow) 12/25/18 17:40 Clear (Clear) 12/25/18 17:40 7.0 (5.0-7.0) 12/25/18 17:40 Ur Specific [place] 1.002 (1.003-1.030) L 12/25/18 17:40 <15 mg/dl mg/dL (Negative) 12/25/18 17:40 Neg mg/dL (Negative) 12/25/18 17:40 Neg mg/dL (Negative) 12/25/18 17:40 Mod (Negative) 12/25/18 17:40 Neg (Negative) 12/25/18 17:40 Neg (Negative) 12/25/18 17:40 < 2.0 mg/dL (<2.0) 12/25/18 17:40 Ur Leukocyte Esterase Tr (Negative) 12/25/18 17:40 0.0 /HPF (0.0-6.0) 12/25/18 17:40 1.0 /HPF (0.0-6.0) 12/25/18 17:40 U Epithel Cells (Auto) 1.0 /HPF (0-13.0) 12/25/18 17:40 1+ /HPF (Negative) 12/25/18 17:40 Presumptive negative 12/25/18 17:40 Presumptive negative 12/25/18 17:40 Ur Barbiturates Screen Presumptive negative 12/25/18 17:40 Ur Phencyclidine Scrn Presumptive negative 12/25/18 17:40 Ur Amphetamines Screen Presumptive negative 12/25/18 17:40 U Benzodiazepines Scrn Presumptive negative 12/25/18 17:40 Presumptive negative 12/25/18 17:40 U Marijuana (THC) Screen Presumptive negative 12/25/18 17:40 Disclamer 12/25/18 17:40 Plasma/Serum Alcohol 0.22 % (0-0.07) H 12/25/18 17:11 Active Medications - Current Medications Current Medications: Generic Name Dose Route Start Last Admin Trade Name Freq PRN Reason Stop Dose Admin Clobetasol Propionate 1 applic 12/25/18 23:00 12/26/18 12:39 Temovate TP 1 applic BID FOREIGN Administration Famotidine 10 mg 12/25/18 22:00 12/26/18 10:29 Pepcid IV 10 mg BID FOREIGN Administration Folic Acid 1 mg 12/26/18 10:00 12/26/18 10:29 Folvite PO 1 mg QDAY FOREIGN Administration Hydromorphone HCl 1 mg 12/25/18 21:55 12/26/18 12:36 Dilaudid IV 1 mg Q3H PRN Administration Pain , Severe (7-10) Ceftriaxone Sodium 1 gm in 50 mls @ 100 mls/hr 12/25/18 22:06 12/25/18 22:52 Rocephin/Ns 1 Gm/50 Ml IV 100 mls/hr Q24HR@2200 FOREIGN Administration Protocol Metronidazole 500 mg in 100 mls @ 100 mls/hr 12/25/18 23:00 12/26/18 06:21 Flagyl 500 Mg/100 Ml IV 100 mls/hr Q8HR FOREIGN Administration Protocol Ibuprofen 400 mg 12/25/18 22:06 Ibuprofen PO Q6H PRN Pain, Mild (1-3) Lorazepam 2 mg 12/25/18 22:33 12/26/18 01:13 Ativan IV 2 mg Q4H PRN Administration Agitation Metoclopramide HCl 10 mg 12/25/18 21:55 Reglan IV Q6H PRN Nausea And Vomiting Multivitamins 1 each 12/26/18 10:00 12/26/18 10:29 Theragran Tab PO 1 each QDAY FOREIGN Administration Ondansetron HCl 4 mg 12/25/18 21:55 Zofran IV Q8H PRN Nausea And Vomiting Oxycodone HCl 5 mg 12/25/18 22:00 12/26/18 05:40 Roxicodone PO 5 mg Q4H PRN Administration Pain, Moderate (4-6) Sodium Chloride 10 ml 12/25/18 22:00 12/26/18 10:30 Sodium Chloride Flush Syringe 10 Ml IV 10 ml BID FOREIGN Administration Sodium Chloride 10 ml 12/25/18 21:55 Sodium Chloride Flush Syringe 10 Ml IV PRN PRN LINE FLUSH Thiamine HCl 100 mg 12/25/18 22:33 12/26/18 10:29 Vitamin B-1 PO 100 mg QDAY FOREIGN Administration Zolpidem Tartrate 5 mg 12/25/18 21:55 Ambien PO QHS PRN Insomnia
[2018-12-26] MEDS ORDERED: VITAMIN K *ORAL LIQUID PO ONE (14:13)
--- NOTE | 2018-12-26 16:39 | Consultation ---
History of Present Illness - Reason for Consult Consult date: 12/26/18 Cirrhosis Requesting physician: JULIA MCGINNIS - History of Present Illness Ms. 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 She presented to the emergency room complaining of pain that was worse over the last 3 days especially on the left side of her body and some on the right side of her body. She has severe uncontrolled psoriasis with multiple skin lesions. On presentation to the emergency room, she was noted to be jaundiced with an elevated INR, and have an elevated alcohol level of 0.22. She denies GI bleed and states that her stools are brown. There is no diarrhea. She has some nausea and did spit up some gastric contents but no blood today. Patient says she has a lot of anxiety and that's why she drinks. Her cirrhosis is characterized by esophageal varices that were banded in December 2016 and in August 2017. There has been no history of GI bleed. She has ascites that has been tapped in the past. She denies fevers chills or sweats. Initially, she told the emergency room that she had quit drinking. CT shows thickening of the colon as well as of the stomach wall and the duodenum. All P to be normal. There is ascites noted on CT scan. She also has gallstones. Past History Past Medical History: anemia, arthritis, hypertension (portal), other (cirrhosis of the liver, psoriasis, anxiety and depression) Past Surgical History: appendectomy, Other (EGD with banding in 12/2016, and 08/2017) Social history: smoking (history of cigarette smoking of 10 years duration. She currently smokes few sticks per day), alcohol abuse (of 12 years and she continues to drink. Her last drink per pt was yesterday), other (she denies illicit drug use, and states she has 11 children) Family history: other (mother from ovarian cancer at 70 years old) Medications and Allergies Allergies Allergy/AdvReac Type Severity Reaction Status Date / Time No Known Allergies Allergy Verified 11/12/16 08:43 Home Medications Medication Instructions Recorded Confirmed Last Taken Type FLUoxetine [PROzac] 20 mg PO QDAY #14 capsule 09/04/17 Unknown Rx Ferrous Sulfate [Feosol 325 MG tab] 325 mg PO BID #60 tablet 09/04/17 Unknown Rx Folic Acid [Folvite] 1 mg PO QDAY #30 tablet 09/04/17 Unknown Rx Magnesium Oxide [Mag-Ox] 400 mg PO QDAY #10 tablet 09/04/17 Unknown Rx Nadolol [Corgard] 20 mg PO QDAY #30 tablet 09/04/17 Unknown Rx Pantoprazole [Protonix TAB] 40 mg PO QDAY #30 tablet 09/04/17 Unknown Rx Rifaximin [Xifaxan] 550 mg PO BID #60 tablet 09/04/17 Unknown Rx Thiamine [Vitamin B-1] 100 mg PO QDAY #30 tablet 09/04/17 Unknown Rx Triamcinolone 0.5% [Kenalog 0.5% 1 applic TP QID #1 tube 09/04/17 Unknown Rx CREAM] Ondansetron [Zofran Odt] 4 mg PO Q8HR PRN #14 tab.rapdis 11/03/18 Unknown Rx traMADol [Ultram] 50 mg PO Q6HR PRN #14 tablet 11/03/18 Unknown Rx Active Meds: Active Medications Clobetasol Propionate (Temovate) 1 applic TP BID [facility] Last Admin: 12/26/18 12:39 Dose: 1 applic Documented by: Famotidine (Pepcid) 10 mg IV BID [facility] Last Admin: 12/26/18 10:29 Dose: 10 mg Documented by: Folic Acid (Folvite) 1 mg PO QDAY [facility] Last Admin: 12/26/18 10:29 Dose: 1 mg Documented by: Hydromorphone HCl (Dilaudid) 1 mg IV Q3H PRN PRN Reason: Pain , Severe (7-10) Last Admin: 12/26/18 15:38 Dose: 1 mg Documented by: Ceftriaxone Sodium (Rocephin/Ns 1 Gm/50 Ml) 1 gm in 50 mls @ 100 mls/hr IV Q24HR@2200 [facility]; Protocol Last Admin: 12/25/18 22:52 Dose: 100 mls/hr Documented by: Metronidazole (Flagyl 500 Mg/100 Ml) 500 mg in 100 mls @ 100 mls/hr IV Q8HR [facility]; Protocol Last Admin: 12/26/18 14:29 Dose: 100 mls/hr Documented by: Ibuprofen (Ibuprofen) 400 mg PO Q6H PRN PRN Reason: Pain, Mild (1-3) Lorazepam (Ativan) 2 mg IV Q4H PRN PRN Reason: Agitation Last Admin: 12/26/18 01:13 Dose: 2 mg Documented by: Metoclopramide HCl (Reglan) 10 mg IV Q6H PRN PRN Reason: Nausea And Vomiting Multivitamins (Theragran Tab) 1 each PO QDAY [facility] Last Admin: 12/26/18 10:29 Dose: 1 each Documented by: Ondansetron HCl (Zofran) 4 mg IV Q8H PRN PRN Reason: Nausea And Vomiting Oxycodone HCl (Roxicodone) 5 mg PO Q4H PRN PRN Reason: Pain, Moderate (4-6) Last Admin: 12/26/18 05:40 Dose: 5 mg Documented by: Sodium Chloride (Sodium Chloride Flush Syringe 10 Ml) 10 ml IV BID [facility] Last Admin: 12/26/18 10:30 Dose: 10 ml Documented by: Sodium Chloride (Sodium Chloride Flush Syringe 10 Ml) 10 ml IV PRN PRN PRN Reason: LINE FLUSH Thiamine HCl (Vitamin B-1) 100 mg PO QDAY [facility] Last Admin: 12/26/18 10:29 Dose: 100 mg Documented by: Zolpidem Tartrate (Ambien) 5 mg PO QHS PRN PRN Reason: Insomnia Review of Systems All systems: negative (as noted above. She has psoriatic plaques with pain all over.) Exam - Constitutional Vitals: Temp Pulse Resp BP Pulse Ox 98.3 F 83 18 96/65 98 12/26/18 11:44 12/26/18 11:44 12/26/18 11:44 12/26/18 11:44 12/26/18 11:44 General appearance: Present: mild distress, disheveled, other (Thin, with psoriatic lesions all over body, including in ears) - EENT Eyes: Present: PERRL, EOM intact, scleral icterus ENT: hearing intact - Respiratory Respiratory effort: normal Respiratory: bilateral: CTA - Cardiovascular Rhythm: regular Heart Sounds: Present: S1 & S2 - Extremities Extremities: No edema Extremity abnormal: other (Psoriatic plaques all over LEs, nieves below knees) Results - Labs CBC & Chem 7: 12/25/18 17:11 12/26/18 06:23 Labs: Abnormal lab results 06/03/0712/25/18 12/25/18 Range/Units 17:11 17:11 17:11 RBC 3.50 L (3.65-5.03) M/mm3 MCV 101 H (79-97) fl MCH 35 H (28-32) pg MCHC 35 H (30-34) % RDW 17.8 H (13.2-15.2) % Plt Count 94 L (140-440) K/mm3 Lymph % (Auto) 9.2 L (13.4-35.0) % Coles % (Auto) 15.2 H (0.0-7.3) % Lymph # 0.5 L (1.2-5.4) K/mm3 Seg Neutrophils % 74.4 H (40.0-70.0) % PT 25.2 H (12.2-14.9) Sec. INR 2.12 H (0.87-1.13) APTT 45.6 H (24.2-36.6) Sec. Sodium 133 L (137-145) mmol/L Potassium 3.0 L (3.6-5.0) mmol/L Chloride 94.2 L (98-107) mmol/L BUN 2 L (7-17) mg/dL Creatinine 0.2 L (0.7-1.2) mg/dL Glucose 123 H (65-100) mg/dL Calcium 7.4 L (8.4-10.2) mg/dL Total Bilirubin 10.80 H (0.1-1.2) mg/dL AST 871 H (5-40) units/L ALT 270 H (7-56) units/L Alkaline Phosphatase 327 H (35-129) units/L Ammonia (25-60) umol/L Total Protein 6.1 L (6.3-8.2) g/dL Albumin 2.6 L (3.9-5) g/dL Ur Specific [place] (1.003-1.030) Plasma/Serum Alcohol (0-0.07) % 12/25/18 12/25/18 12/25/18 Range/Units 17:11 17:11 17:40 RBC (3.65-5.03) M/mm3 MCV (79-97) fl MCH (28-32) pg MCHC (30-34) % RDW (13.2-15.2) % Plt Count (140-440) K/mm3 Lymph % (Auto) (13.4-35.0) % Coles % (Auto) (0.0-7.3) % Lymph # (1.2-5.4) K/mm3 Seg Neutrophils % (40.0-70.0) % PT (12.2-14.9) Sec. INR (0.87-1.13) APTT (24.2-36.6) Sec. Sodium (137-145) mmol/L Potassium (3.6-5.0) mmol/L Chloride (98-107) mmol/L BUN (7-17) mg/dL Creatinine (0.7-1.2) mg/dL Glucose (65-100) mg/dL Calcium (8.4-10.2) mg/dL Total Bilirubin (0.1-1.2) mg/dL AST (5-40) units/L ALT (7-56) units/L Alkaline Phosphatase (35-129) units/L Ammonia 24.0 L (25-60) umol/L Total Protein (6.3-8.2) g/dL Albumin (3.9-5) g/dL Ur Specific [place] 1.002 L (1.003-1.030) Plasma/Serum Alcohol 0.22 H (0-0.07) % 12/26/18 Range/Units 06:23 RBC (3.65-5.03) M/mm3 MCV (79-97) fl MCH (28-32) pg MCHC (30-34) % RDW (13.2-15.2) % Plt Count (140-440) K/mm3 Lymph % (Auto) (13.4-35.0) % Coles % (Auto) (0.0-7.3) % Lymph # (1.2-5.4) K/mm3 Seg Neutrophils % (40.0-70.0) % PT (12.2-14.9) Sec. INR (0.87-1.13) APTT (24.2-36.6) Sec. Sodium (137-145) mmol/L Potassium (3.6-5.0) mmol/L Chloride (98-107) mmol/L BUN 2 L (7-17) mg/dL Creatinine < 0.2 L (0.7-1.2) mg/dL Glucose 162 H (65-100) mg/dL Calcium 7.3 L (8.4-10.2) mg/dL Total Bilirubin 10.70 H (0.1-1.2) mg/dL AST 550 H (5-40) units/L ALT 235 H (7-56) units/L Alkaline Phosphatase 328 H (35-129) units/L Ammonia (25-60) umol/L Total Protein 6.2 L (6.3-8.2) g/dL Albumin 2.7 L (3.9-5) g/dL Ur Specific [place] (1.003-1.030) Plasma/Serum Alcohol (0-0.07) % - Imaging and Cardiology CT scan - abdomen: report reviewed US - abdomen: report reviewed Assessment and Plan 1. Alcoholic liver disease - with cirrhosis, and alcoholic hepatitis. DF > 50, and no obvious contraindications, so steroids were advised to ER. Pt continues to drink, and prognosis is poor. - will give steroids x 7 days and monitor for response. - vit K and check INR - monitor for DTs 2. Psoriasis - with pain. Severe, with plaques over a lot of the skin. - advised pt that as outpatient, she needs Rheum eval for management.
[2018-12-26] MEDS ORDERED: VITAMIN K (ADULT ONLY) 10 MG in NACL 0.9% 50 ML IV ONE (18:00)
[2018-12-26] MEDS: ROCEPHIN/NS 1 GM/50 ML 1 GM/50 ML BAG IV SCH (21:37)
[2018-12-27] MEDS: ROXICODONE PO PRN ×3 (01:59→15:07)
[2018-12-27 05:45] LABS: Hematocrit 31.2 % (30.3-42.9); Hemoglobin 10.7 gm/dl (10.1-14.3); Mean Corpuscular HGB Conc 34 % (30-34); Mean Corpuscular Volume 104 fl (79-97); Red Blood Count 3.02 M/mm3 (3.65-5.03); Red Cell Distribution Width 17.8 % (13.2-15.2)
[2018-12-27 05:48] LABS: Platelet Count 90 K/mm3 (140-440)
[2018-12-27 05:56] LABS: INR 1.87 (0.87-1.13)
[2018-12-27 05:57] LABS: Partial Thromboplastin Time 44.7 Sec. (24.2-36.6)
[2018-12-27 06:08] LABS: Alanine Aminotransferase 161 units/L (7-56); Albumin 2.4 g/dL (3.9-5); BUN/Creatinine Ratio 20; Blood Urea Nitrogen 4 mg/dL (7-17); Calcium 7.3 mg/dL (8.4-10.2); Hemolysis Index 0
[2018-12-27] MEDS: FLAGYL 500 MG/100 ML 500 MG/100 ML BAG IV SCH ×3 (06:59→23:00)
[2018-12-27] MEDS: FOLVITE PO SCH (11:14)
[2018-12-27] MEDS: THERAGRAN Tab PO SCH (11:15)
[2018-12-27] MEDS: SODIUM CHLORIDE FLUSH SYRINGE 10 ML IV SCH ×2 (11:15→23:11)
[2018-12-27] MEDS: VITAMIN B-1 PO SCH (11:15)
[2018-12-27] MEDS: PEPCID IV SCH (11:15)
[2018-12-27] MEDS: TEMOVATE TP SCH ×2 (11:17→23:16)
[2018-12-27] MEDS: DILAUDID IV PRN ×2 (11:27→20:40)
[2018-12-27] MEDS: ORAPRED PO SCH (11:33)
--- NOTE | 2018-12-27 12:08 | Progress Note ---
Assessment and Plan Assessment and plan: Patient is a 48-year-old woman with a history of tobacco dependency, cirrhosis of the liver anemia, arthritis, portal hypertension, psoriasis, anxiety and depression who presented to [facility] ED with leg swelling and pains. ETOH level was 0.22 (normal less than 0.07). * CT abd/pelvis with iv contrast IMPRESSION: 1. The liver demonstrates evidence for cirrhosis and fatty metamorphosis 2. Diffuse edema of the wall involving the entire stomach, duodenum, and the entire colon. Differential includes enteritis and colitis as well as Crohn's disease. 3. Cholelithiasis 4. Ascites 5. 2 ventral hernias containing mesenteric vessels and fat in the left lower quadrant 6. Single borderline lymph node in the right groin * pCXR IMPRESSION: 1. No evidence of an acute pulmonary process. 2. Enlarged cardiac silhouette. This may be exaggerated by portable technique. Acute on chronic alcoholic liver failure: GI to evaluate, input noted, Steroids x 7 days Alcoholic cirrhosis of the liver with small ascites and portal hypertension Colitis/ileitis per CT abdomen/pelvis-On IV antibiotics with Rocephin and Flagyl Otitis externa with psoriasis of the ears: no ENT here, the steroids should help Moderate to severe psoriasis with acute flare-On topical steroid, oral steroids ordered Atypical Chest pain, rule out ACS-Serial troponin level monitoring Hypokalemia-We'll replete and monitor level Hyponatremia-On oral fluid restriction, will monitor sodium level Alcohol abuse/Alcohol intoxication with high risk for alcohol withdrawal-On alcohol withdrawal prophylaxis-Patient counseled on alcohol cessation Anemia of chronic disease-H/H stable Coagulopathy disorder-No evidence of acute bleed, patient received 10mg oral vitamin k and 10mg IV vitamin k on thursday12/27/18 and still coagulopathic. Severe instead of Moderate protein calorie malnutrition, poa-Dietitian consulted DVT prophylaxis with SCD and GI prophylaxis with famotidine Disposition: Continue inpatient care. Overall prognosis is poor. She wants her son Brennen to make medical decision for her, followed by Pham in the event she is unable to make decisions for herself. Once GI clears she can go home. History Interval history: Patient was seen and examined. Follow-up on current diagnosis Cirrhosis. No overnight events reported to me. Patient denies any chest pain, shortness breath, nausea/vomiting or severe headaches. Imaging, nursing note, chart, labs and old chart reviewed. Discussed with patient. Hospitalist Physical - Physical exam Narrative exam: Gen: ill appearing, cachetic NAD, Awake, Alert, Orientated HEENT: NCAT, EOMI, PERRL, OP Clear, bilateral ears red, with crusty lesion, excoriations with drainage. Neck: supple, no adenopathy, no thyromegaly, no JVD CVS/Heart: Regn tachycardia, normal S1S2, pulses present bilaterally Chest/Lungs: diminihsed bs bilaterally, Symmetrical chest expansion, good air entry bilaterally GI/Abdomen: distended, diffuse tenderness, good bowel sounds, no guarding or rebound /Bladder: no suprapubic tenderness, no CVA or paraspinal tenderness Extermity/Skin: ble edema, ears w/crusty lesions, bilateral legs with psorosis plagues MSK: FROM x 4 Neuro: CN 2-12 grossly intact except hearing loss bilateral poa, no new focal deficits Psych: anxious - Constitutional Vitals: Temp Pulse Resp BP Pulse Ox 98.5 F 107 H 24 103/60 98 12/27/18 04:48 12/27/18 04:48 12/27/18 04:48 12/27/18 04:48 12/27/18 04:48 General appearance: Present: mild distress, disheveled, other (Thin, with psoriatic lesions all over body, including in ears) Results - Labs CBC & Chem 7: 12/27/18 05:10 12/27/18 05:10 Labs: Laboratory Last Values WBC 4.5 K/mm3 (4.5-11.0) 12/27/18 05:10 RBC 3.02 M/mm3 (3.65-5.03) L 12/27/18 05:10 Hgb 10.7 gm/dl (10.1-14.3) 12/27/18 05:10 Hct 31.2 % (30.3-42.9) 12/27/18 05:10 MCV 104 fl (79-97) H 12/27/18 05:10 MCH 35 pg (28-32) H 12/27/18 05:10 MCHC 34 % (30-34) 12/27/18 05:10 RDW 17.8 % (13.2-15.2) H 12/27/18 05:10 Plt Count 90 K/mm3 (140-440) L 12/27/18 05:10 Lymph % (Auto) 9.2 % (13.4-35.0) L 12/25/18 17:11 [place] % (Auto) 15.2 % (0.0-7.3) H 12/25/18 17:11 Eos % (Auto) 0.9 % (0.0-4.3) 12/25/18 17:11 Baso % (Auto) 0.3 % (0.0-1.8) 12/25/18 17:11 Lymph # 0.5 K/mm3 (1.2-5.4) L 12/25/18 17:11 Stanly # 0.8 K/mm3 (0.0-0.8) 12/25/18 17:11 Eos # 0.0 K/mm3 (0.0-0.4) 12/25/18 17:11 Baso # 0.0 K/mm3 (0.0-0.1) 12/25/18 17:11 Seg Neutrophils % 74.4 % (40.0-70.0) H 12/25/18 17:11 Seg Neutrophils # 3.8 K/mm3 (1.8-7.7) 12/25/18 17:11 PT 22.8 Sec. (12.2-14.9) H 12/27/18 05:10 INR 1.87 (0.87-1.13) H 12/27/18 05:10 APTT 44.7 Sec. (24.2-36.6) H 12/27/18 05:10 Sodium 132 mmol/L (137-145) L 12/27/18 05:10 Potassium 4.1 mmol/L (3.6-5.0) 12/27/18 05:10 Chloride 96.2 mmol/L (98-107) L 12/27/18 05:10 Carbon Dioxide 22 mmol/L (22-30) 12/27/18 05:10 18 mmol/L 12/27/18 05:10 BUN 4 mg/dL (7-17) L 12/27/18 05:10 0.2 mg/dL (0.7-1.2) L 12/27/18 05:10 Estimated GFR > 60 ml/min 12/27/18 05:10 20 % 12/27/18 05:10 Glucose 123 mg/dL (65-100) H 12/27/18 05:10 Calcium 7.3 mg/dL (8.4-10.2) L 12/27/18 05:10 Magnesium 1.70 mg/dL (1.7-2.3) 12/25/18 17:11 11.10 mg/dL (0.1-1.2) H 12/27/18 05:10 AST 237 units/L (5-40) H 12/27/18 05:10 ALT 161 units/L (7-56) H 12/27/18 05:10 276 units/L (35-129) H 12/27/18 05:10 24.0 umol/L (25-60) L 12/25/18 17:11 37 units/L (30-135) 12/25/18 17:11 CK-MB (CK-2) < 1.0 ng/mL (0.0-4.0) 12/25/18 17:11 CK-MB (CK-2) Rel Index 2.7 (0-4) 12/25/18 17:11 < 0.010 ng/mL (0.00-0.029) 12/26/18 00:56 5.4 g/dL (6.3-8.2) L 12/27/18 05:10 2.4 g/dL (3.9-5) L 12/27/18 05:10 0.8 % 12/27/18 05:10 Laura (Yellow) 12/25/18 17:40 Clear (Clear) 12/25/18 17:40 7.0 (5.0-7.0) 12/25/18 17:40 Ur Specific Berger 1.002 (1.003-1.030) L 12/25/18 17:40 <15 mg/dl mg/dL (Negative) 12/25/18 17:40 Neg mg/dL (Negative) 12/25/18 17:40 Neg mg/dL (Negative) 12/25/18 17:40 Mod (Negative) 12/25/18 17:40 Neg (Negative) 12/25/18 17:40 Neg (Negative) 12/25/18 17:40 < 2.0 mg/dL (<2.0) 12/25/18 17:40 Ur Leukocyte Esterase Tr (Negative) 12/25/18 17:40 0.0 /HPF (0.0-6.0) 12/25/18 17:40 1.0 /HPF (0.0-6.0) 12/25/18 17:40 U Epithel Cells (Auto) 1.0 /HPF (0-13.0) 12/25/18 17:40 1+ /HPF (Negative) 12/25/18 17:40 Presumptive negative 12/25/18 17:40 Presumptive negative 12/25/18 17:40 Ur Barbiturates Screen Presumptive negative 12/25/18 17:40 Ur Phencyclidine Scrn Presumptive negative 12/25/18 17:40 Ur Amphetamines Screen Presumptive negative 12/25/18 17:40 U Benzodiazepines Scrn Presumptive negative 12/25/18 17:40 Presumptive negative 12/25/18 17:40 U Marijuana (THC) Screen Presumptive negative 12/25/18 17:40 Disclamer 12/25/18 17:40 Plasma/Serum Alcohol 0.22 % (0-0.07) H 12/25/18 17:11 Active Medications - Current Medications Current Medications: Generic Name Dose Route Start Last Admin Trade Name Freq PRN Reason Stop Dose Admin Clobetasol Propionate 1 applic 12/25/18 23:00 12/27/18 11:17 Temovate TP 1 applic BID FOREIGN Administration Famotidine 10 mg 12/25/18 22:00 12/27/18 11:15 Pepcid IV 10 mg BID FOREIGN Administration Folic Acid 1 mg 12/26/18 10:00 12/27/18 11:14 Folvite PO 1 mg QDAY FOREIGN Administration Hydromorphone HCl 1 mg 12/25/18 21:55 12/27/18 11:27 Dilaudid IV 1 mg Q3H PRN Administration Pain , Severe (7-10) Ceftriaxone Sodium 1 gm in 50 mls @ 100 mls/hr 12/25/18 22:06 12/26/18 21:37 Rocephin/Ns 1 Gm/50 Ml IV 100 mls/hr Q24HR@2200 FOREIGN Administration Protocol Metronidazole 500 mg in 100 mls @ 100 mls/hr 12/25/18 23:00 06/10/19 06:59 Flagyl 500 Mg/100 Ml IV 100 mls/hr Q8HR FOREIGN Administration Protocol Ibuprofen 400 mg 12/25/18 22:06 Ibuprofen PO Q6H PRN Pain, Mild (1-3) Lorazepam 2 mg 12/25/18 22:33 12/26/18 01:13 Ativan IV 2 mg Q4H PRN Administration Agitation Metoclopramide HCl 10 mg 12/25/18 21:55 Reglan IV Q6H PRN Nausea And Vomiting Multivitamins 1 each 12/26/18 10:00 12/27/18 11:15 Theragran Tab PO 1 each QDAY FOREIGN Administration Ondansetron HCl 4 mg 12/25/18 21:55 Zofran IV Q8H PRN Nausea And Vomiting Oxycodone HCl 5 mg 12/25/18 22:00 12/27/18 07:06 Roxicodone PO 5 mg Q4H PRN Administration Pain, Moderate (4-6) Prednisolone Sodium Phosphate 40 mg 12/26/18 18:00 12/27/18 11:33 Orapred PO 01/01/19 17:59 40 mg DAILY FOREIGN Administration Sodium Chloride 10 ml 12/25/18 22:00 12/27/18 11:15 Sodium Chloride Flush Syringe 10 Ml IV 10 ml BID FOREIGN Administration Sodium Chloride 10 ml 12/25/18 21:55 Sodium Chloride Flush Syringe 10 Ml IV PRN PRN LINE FLUSH Thiamine HCl 100 mg 12/25/18 22:33 12/27/18 11:15 Vitamin B-1 PO 100 mg QDAY FOREIGN Administration Zolpidem Tartrate 5 mg 12/25/18 21:55 Ambien PO QHS PRN Insomnia Nutrition/Malnutrition Assess - Dietary Evaluation Nutrition/Malnutrition Findings: Nutrition Notes Start: 12/26/18 15:55 Freq: Status: Active Protocol: Document 12/26/18 15:55 RM (Rec: 12/26/18 16:03 RM [id number]) Nutrition Notes Need for Assessment generated from: MD Order Initial or Follow up Assessment Other Pertinent Diagnosis Hx cirrhosis, Abdominal pain, Alcohol intoxication, Colitis Current Diet Full liquid Labs/Tests Reviewed Pertinent Medications Reviewed Height 5 ft 5 in Weight 53.5 kg [place] Body Weight (kg) 56.81 BMI 19.6 Subjective/Other Information Consulted for malnutrition. Screened for malnutrition and difficulty chewing. Pt asleep at time of visit. Per tech pt has been mostly sleeping and drinking juice. Stated pt also ate bites of grits this morning. No temporal or orbital wasting . Burn Absent Trauma Absent #1 Nutrition Diagnosis Inadequate oral intake Etiology alcohol intoxication, abdominal pain As Evidenced by Signs and Symptoms pt tech statement that pt has been mostly sleeping and drinking juice Is patient on ventilator? No Is Patient Ambulatory and/or Out of Bed No REE-([facility]-confined to bed) 1391.208 Calculation Used for Recommendations [facility] Additional Notes Protein Needs: 64-86g (1.2-1. 6g/kg) Fluid Needs: 1 ml/kcal Nutrition Intervention Change Diet Order: Advance diet when medically able Add Supplement/Snack (indicate name/kcal Ensure Clear 1 daily /protein ) Provides kCal: 240 Provides Protein (gm) 8 Goal #1 Diet advancement Anticipated Discharge Needs: Unable to determine at this time Follow-Up By: 12/29/18 Additional Comments Follow for malnutrition assessment, PO intakes and ONS intakes
--- NOTE | 2018-12-27 14:08 | Progress Note ---
Assessment and Plan 1. Alcoholic liver disease - with cirrhosis, and alcoholic hepatitis. On steroids for alcoholic hepatitis. LFTs better, though TBili up slightly. INR responded to vit K. Pt continues to drink, and prognosis is poor, and this was discussed at length with pt's daughter. - will give steroids x 7 days and monitor for response. - monitor for DTs 2. Psoriasis - with pain. Severe, with plaques over a lot of the skin. - advised pt that as outpatient, she needs Rheum eval for management. Subjective Date of service: 12/27/18 Interval history: Pt has ongoing pain, o/w stable. 19 yo daughter in room. Objective - Constitutional Vitals: Vital Signs - 12hr 12/27/18 12/27/18 12/27/18 04:48 11:57 12:47 Temperature 98.5 F 98.9 F Pulse Rate 107 H 88 95 H Respiratory 24 18 Rate Blood Pressure 103/60 88/57 Blood Pressure 97/58 [Left] O2 Sat by Pulse 98 95 Oximetry General appearance: Present: no acute distress, cachectic, disheveled - EENT Eyes: scleral icterus - Respiratory Respiratory effort: normal - Gastrointestinal General gastrointestinal: Present: soft, non-tender - Labs CBC & Chem 7: 12/27/18 05:10 12/27/18 05:10 Labs: Abnormal lab results 12/27/18 12/27/18 12/27/18 Range/Units 05:10 05:10 05:10 RBC 3.02 L (3.65-5.03) M/mm3 MCV 104 H (79-97) fl MCH 35 H (28-32) pg RDW 17.8 H (13.2-15.2) % Plt Count 90 L (140-440) K/mm3 PT 22.8 H (12.2-14.9) Sec. INR 1.87 H (0.87-1.13) APTT 44.7 H (24.2-36.6) Sec. Sodium 132 L (137-145) mmol/L Chloride 96.2 L (98-107) mmol/L BUN 4 L (7-17) mg/dL Creatinine 0.2 L (0.7-1.2) mg/dL Glucose 123 H (65-100) mg/dL Calcium 7.3 L (8.4-10.2) mg/dL Total Bilirubin 11.10 H (0.1-1.2) mg/dL AST 237 H (5-40) units/L ALT 161 H (7-56) units/L Alkaline Phosphatase 276 H (35-129) units/L Total Protein 5.4 L (6.3-8.2) g/dL Albumin 2.4 L (3.9-5) g/dL Medications & Allergies - Medications Allergies/Adverse Reactions: Allergies No Known Allergies Allergy (Verified 11/12/16 08:43) Home Medications: Home Medications Medication Instructions Recorded Confirmed Last Taken Type FLUoxetine [PROzac] 20 mg PO QDAY #14 capsule 09/04/17 Unknown Rx Ferrous Sulfate [Feosol 325 MG tab] 325 mg PO BID #60 tablet 09/04/17 Unknown Rx Folic Acid [Folvite] 1 mg PO QDAY #30 tablet 09/04/17 Unknown Rx Magnesium Oxide [Mag-Ox] 400 mg PO QDAY #10 tablet 09/04/17 Unknown Rx Nadolol [Corgard] 20 mg PO QDAY #30 tablet 09/04/17 Unknown Rx Pantoprazole [Protonix TAB] 40 mg PO QDAY #30 tablet 09/04/17 Unknown Rx Rifaximin [Xifaxan] 550 mg PO BID #60 tablet 09/04/17 Unknown Rx Thiamine [Vitamin B-1] 100 mg PO QDAY #30 tablet 09/04/17 Unknown Rx Triamcinolone 0.5% [Kenalog 0.5% 1 applic TP QID #1 tube 09/04/17 Unknown Rx CREAM] Ondansetron [Zofran Odt] 4 mg PO Q8HR PRN #14 tab.rapdis 11/03/18 Unknown Rx traMADol [Ultram] 50 mg PO Q6HR PRN #14 tablet 11/03/18 Unknown Rx Active Medications: Generic Name Dose Route Start Last Admin Trade Name Freq PRN Reason Stop Dose Admin Clobetasol Propionate 1 applic 12/25/18 23:00 12/27/18 11:17 Temovate TP 1 applic BID FOREIGN Administration Folic Acid 1 mg 12/26/18 10:00 12/27/18 11:14 Folvite PO 1 mg QDAY FOREIGN Administration Hydromorphone HCl 1 mg 12/25/18 21:55 12/27/18 11:27 Dilaudid IV 1 mg Q3H PRN Administration Pain , Severe (7-10) Ceftriaxone Sodium 1 gm in 50 mls @ 100 mls/hr 12/25/18 22:06 12/26/18 21:37 Rocephin/Ns 1 Gm/50 Ml IV 100 mls/hr Q24HR@2200 FOREIGN Administration Protocol Metronidazole 500 mg in 100 mls @ 100 mls/hr 12/25/18 23:00 12/27/18 06:59 Flagyl 500 Mg/100 Ml IV 100 mls/hr Q8HR FOREIGN Administration Protocol Lorazepam 2 mg 12/25/18 22:33 12/26/18 01:13 Ativan IV 2 mg Q4H PRN Administration Agitation Metoclopramide HCl 10 mg 12/25/18 21:55 Reglan IV Q6H PRN Nausea And Vomiting Multivitamins 1 each 12/26/18 10:00 12/27/18 11:15 Theragran Tab PO 1 each QDAY FOREIGN Administration Ondansetron HCl 4 mg 12/25/18 21:55 Zofran IV Q8H PRN Nausea And Vomiting Oxycodone HCl 5 mg 12/25/18 22:00 12/27/18 07:06 Roxicodone PO 5 mg Q4H PRN Administration Pain, Moderate (4-6) Prednisolone Sodium Phosphate 40 mg 12/26/18 18:00 12/27/18 11:33 Orapred PO 01/01/19 17:59 40 mg DAILY FORIEGN Administration Sodium Chloride 10 ml 12/25/18 22:00 12/27/18 11:15 Sodium Chloride Flush Syringe 10 Ml IV 10 ml BID FOREIGN Administration Sodium Chloride 10 ml 12/25/18 21:55 Sodium Chloride Flush Syringe 10 Ml IV PRN PRN LINE FLUSH Thiamine HCl 100 mg 12/25/18 22:33 12/27/18 11:15 Vitamin B-1 PO 100 mg QDAY FOREIGN Administration Zolpidem Tartrate 5 mg 12/25/18 21:55 Ambien PO QHS PRN Insomnia
[2018-12-27] MEDS: ROCEPHIN/NS 1 GM/50 ML 1 GM/50 ML BAG IV SCH (23:01)
[2018-12-28] MEDS: DILAUDID IV PRN (02:48)
[2018-12-28] MEDS: FLAGYL 500 MG/100 ML 500 MG/100 ML BAG IV SCH ×2 (06:49→13:30)
[2018-12-28 08:12] LABS: Hematocrit 31.3 % (30.3-42.9); Hemoglobin 10.6 gm/dl (10.1-14.3); Mean Corpuscular HGB Conc 34 % (30-34); Mean Corpuscular Volume 103 fl (79-97); Red Blood Count 3.03 M/mm3 (3.65-5.03); Red Cell Distribution Width 17.7 % (13.2-15.2)
[2018-12-28 08:16] LABS: Platelet Count 93 K/mm3 (140-440)
[2018-12-28 08:36] LABS: Alanine Aminotransferase 113 units/L (7-56); Albumin 2.3 g/dL (3.9-5); BUN/Creatinine Ratio 15; Blood Urea Nitrogen 3 mg/dL (7-17); Calcium 7.4 mg/dL (8.4-10.2); Hemolysis Index 1
[2018-12-28 09:10] VITALS: BP 98/68
[2018-12-28] MEDS: THERAGRAN Tab PO SCH (09:40)
[2018-12-28] MEDS: ROXICODONE PO PRN (09:40)
[2018-12-28] MEDS: FOLVITE PO SCH (09:40)
[2018-12-28] MEDS: VITAMIN B-1 PO SCH (09:40)
[2018-12-28] MEDS: ORAPRED PO SCH (09:43)
[2018-12-28] MEDS: TEMOVATE TP SCH (09:44)
--- NOTE | 2018-12-28 12:04 | Gastroenterology Progress Note ---
Assessment and Plan 1. Alcoholic liver disease - with cirrhosis, and alcoholic hepatitis. On steroids for alcoholic hepatitis. LFTs continue to improve. INR responded to vit K. Pt continues to drink, and prognosis is poor, and this was discussed at length with pt's daughter. - continue steroids x 7 days and monitor for response. - monitor for DTs - okay to start on low sodium diet - continue to trend labs and supportive care 2. Psoriasis - with pain. Severe, with plaques over a lot of the skin. - advised pt that as outpatient, she needs Rheum eval for management. Subjective Date of service: 12/28/18 Principal diagnosis: cirrhosis Interval history: Patient resting in bed w/o acute distress and daughter at bedside. Reports extremity/back pain but no abd pain, N/V, or signs of bleeding. Requesting for diet to be advanced. No encephalopathy noted upon exam. Objective - Constitutional Vitals: Temp Pulse Resp BP Pulse Ox 98.5 F 82 18 98/68 96 12/27/18 16:45 12/28/18 09:09 12/27/18 16:45 12/28/18 09:09 12/27/18 16:45 General appearance: no acute distress - EENT Eyes: scleral icterus - Respiratory Respiratory effort: normal - Cardiovascular Rhythm: regular - Gastrointestinal General gastrointestinal: Present: soft, non-tender, non-distended, normal bowel sounds - Integumentary Integumentary: Present: jaundice - Neurologic Neurological: alert and oriented x3 - Labs CBC & Chem 7: 12/28/18 07:16 12/28/18 07:16 Labs: Laboratory Results - last 24 hr 12/28/18 12/28/18 07:16 07:16 WBC 5.1 RBC 3.03 L Hgb 10.6 Hct 31.3 MCV 103 H MCH 35 H MCHC 34 RDW 17.7 H Plt Count 93 L Sodium 131 L Potassium 3.7 Chloride 97.4 L Carbon Dioxide 25 Anion Gap 12 BUN 3 L Creatinine < 0.2 L Estimated GFR > 60 BUN/Creatinine Ratio 15 Glucose 133 H Calcium 7.4 L Total Bilirubin 10.20 H AST 125 H ALT 113 H Alkaline Phosphatase 259 H Total Protein 5.2 L Albumin 2.3 L Albumin/Globulin Ratio 0.8
--- NOTE | 2018-12-28 12:25 | Progress Note ---
Assessment and Plan Assessment and plan: Patient is a 48-year-old woman with a history of tobacco dependency, cirrhosis of the liver anemia, arthritis, portal hypertension, psoriasis, anxiety and depression who presented to [facility] ED with leg swelling and pains. ETOH level was 0.22 (normal less than 0.07). * CT abd/pelvis with iv contrast IMPRESSION: 1. The liver demonstrates evidence for cirrhosis and fatty metamorphosis 2. Diffuse edema of the wall involving the entire stomach, duodenum, and the entire colon. Differential includes enteritis and colitis as well as Crohn's disease. 3. Cholelithiasis 4. Ascites 5. 2 ventral hernias containing mesenteric vessels and fat in the left lower quadrant 6. Single borderline lymph node in the right groin * pCXR IMPRESSION: 1. No evidence of an acute pulmonary process. 2. Enlarged cardiac silhouette. This may be exaggerated by portable technique. Acute on chronic alcoholic liver failure: GI to evaluate, input noted, Steroids x 7 days Alcoholic cirrhosis of the liver with small ascites and portal hypertension Colitis/ileitis per CT abdomen/pelvis-On IV antibiotics with Rocephin and Flagyl Otitis externa with psoriasis of the ears: no ENT here, the steroids should help Moderate to severe psoriasis with acute flare-On topical steroid, oral steroids ordered Atypical Chest pain, rule out ACS-Serial troponin level monitoring Hypokalemia-We'll replete and monitor level Hyponatremia-On oral fluid restriction, will monitor sodium level Alcohol abuse/Alcohol intoxication with high risk for alcohol withdrawal-On alcohol withdrawal prophylaxis-Patient counseled on alcohol cessation Anemia of chronic disease-H/H stable Coagulopathy disorder-No evidence of acute bleed, patient received 10mg oral vitamin k and 10mg IV vitamin k on thursday12/27/18 and still coagulopathic. Severe instead of Moderate protein calorie malnutrition, poa-Dietitian consulted DVT prophylaxis with SCD and GI prophylaxis with famotidine Disposition: Continue inpatient care. Overall prognosis is poor. She wants her son Brennen to make medical decision for her, followed by Pham in the event she is unable to make decisions for herself. Once GI clears she can go home. She is 2/7 days of prednisone. GI monitoring for response. Watch for etoh withdrawals. History Interval history: Patient was seen and examined. Follow-up on current diagnosis Cirrhosis. No overnight events reported to me. Patient denies any chest pain, shortness breath, nausea/vomiting or severe headaches. Imaging, nursing note, chart, labs and old chart reviewed. Discussed with patient. Hospitalist Physical - Physical exam Narrative exam: Gen: ill appearing, cachetic NAD, Awake, Alert, Orientated HEENT: NCAT, EOMI, PERRL, OP Clear, bilateral ears red, with crusty lesion, excoriations with drainage. Neck: supple, no adenopathy, no thyromegaly, no JVD CVS/Heart: Regn tachycardia, normal S1S2, pulses present bilaterally Chest/Lungs: diminihsed bs bilaterally, Symmetrical chest expansion, good air entry bilaterally GI/Abdomen: distended, diffuse tenderness, good bowel sounds, no guarding or rebound /Bladder: no suprapubic tenderness, no CVA or paraspinal tenderness Extermity/Skin: ble edema, ears w/crusty lesions, bilateral legs with psorosis plagues MSK: FROM x 4 Neuro: CN 2-12 grossly intact except hearing loss bilateral poa, no new focal deficits Psych: anxious - Constitutional Vitals: Temp Pulse Resp BP Pulse Ox 98.5 F 82 18 98/68 96 12/27/18 16:45 12/28/18 09:09 12/27/18 16:45 12/28/18 09:09 12/27/18 16:45 General appearance: Present: no acute distress, cachectic, disheveled Results - Labs CBC & Chem 7: 12/28/18 07:16 12/28/18 07:16 Labs: Laboratory Last Values WBC 5.1 K/mm3 (4.5-11.0) 12/28/18 07:16 RBC 3.03 M/mm3 (3.65-5.03) L 12/28/18 07:16 Hgb 10.6 gm/dl (10.1-14.3) 12/28/18 07:16 Hct 31.3 % (30.3-42.9) 12/28/18 07:16 MCV 103 fl (79-97) H 12/28/18 07:16 MCH 35 pg (28-32) H 12/28/18 07:16 MCHC 34 % (30-34) 12/28/18 07:16 RDW 17.7 % (13.2-15.2) H 12/28/18 07:16 Plt Count 93 K/mm3 (140-440) L 12/28/18 07:16 Lymph % (Auto) 9.2 % (13.4-35.0) L 12/25/18 17:11 Meigs % (Auto) 15.2 % (0.0-7.3) H 12/25/18 17:11 Eos % (Auto) 0.9 % (0.0-4.3) 12/25/18 17:11 Baso % (Auto) 0.3 % (0.0-1.8) 12/25/18 17:11 Lymph # 0.5 K/mm3 (1.2-5.4) L 12/25/18 17:11 Meigs # 0.8 K/mm3 (0.0-0.8) 12/25/18 17:11 Eos # 0.0 K/mm3 (0.0-0.4) 12/25/18 17:11 Baso # 0.0 K/mm3 (0.0-0.1) 12/25/18 17:11 Seg Neutrophils % 74.4 % (40.0-70.0) H 12/25/18 17:11 Seg Neutrophils # 3.8 K/mm3 (1.8-7.7) 12/25/18 17:11 PT 22.8 Sec. (12.2-14.9) H 12/27/18 05:10 INR 1.87 (0.87-1.13) H 12/27/18 05:10 APTT 44.7 Sec. (24.2-36.6) H 12/27/18 05:10 Sodium 131 mmol/L (137-145) L 12/28/18 07:16 Potassium 3.7 mmol/L (3.6-5.0) 12/28/18 07:16 Chloride 97.4 mmol/L (98-107) L 12/28/18 07:16 Carbon Dioxide 25 mmol/L (22-30) 12/28/18 07:16 12 mmol/L 12/28/18 07:16 BUN 3 mg/dL (7-17) L 12/28/18 07:16 < 0.2 mg/dL (0.7-1.2) L 12/28/18 07:16 Estimated GFR > 60 ml/min 12/28/18 07:16 15 % 12/28/18 07:16 Glucose 133 mg/dL (65-100) H 12/28/18 07:16 Calcium 7.4 mg/dL (8.4-10.2) L 12/28/18 07:16 Magnesium 1.70 mg/dL (1.7-2.3) 12/25/18 17:11 10.20 mg/dL (0.1-1.2) H 12/28/18 07:16 AST 125 units/L (5-40) H 12/28/18 07:16 ALT 113 units/L (7-56) H 12/28/18 07:16 259 units/L (35-129) H 12/28/18 07:16 24.0 umol/L (25-60) L 12/25/18 17:11 37 units/L (30-135) 12/25/18 17:11 CK-MB (CK-2) < 1.0 ng/mL (0.0-4.0) 12/25/18 17:11 CK-MB (CK-2) Rel Index 2.7 (0-4) 12/25/18 17:11 < 0.010 ng/mL (0.00-0.029) 12/26/18 00:56 5.2 g/dL (6.3-8.2) L 12/28/18 07:16 2.3 g/dL (3.9-5) L 12/28/18 07:16 0.8 % 12/28/18 07:16 Laura (Yellow) 12/25/18 17:40 Clear (Clear) 12/25/18 17:40 7.0 (5.0-7.0) 12/25/18 17:40 Ur Specific Landrum 1.002 (1.003-1.030) L 12/25/18 17:40 <15 mg/dl mg/dL (Negative) 12/25/18 17:40 Neg mg/dL (Negative) 12/25/18 17:40 Neg mg/dL (Negative) 12/25/18 17:40 Mod (Negative) 12/25/18 17:40 Neg (Negative) 12/25/18 17:40 Neg (Negative) 12/25/18 17:40 < 2.0 mg/dL (<2.0) 12/25/18 17:40 Ur Leukocyte Esterase Tr (Negative) 12/25/18 17:40 0.0 /HPF (0.0-6.0) 12/25/18 17:40 1.0 /HPF (0.0-6.0) 12/25/18 17:40 U Epithel Cells (Auto) 1.0 /HPF (0-13.0) 12/25/18 17:40 1+ /HPF (Negative) 12/25/18 17:40 Presumptive negative 12/25/18 17:40 Presumptive negative 12/25/18 17:40 Ur Barbiturates Screen Presumptive negative 12/25/18 17:40 Ur Phencyclidine Scrn Presumptive negative 12/25/18 17:40 Ur Amphetamines Screen Presumptive negative 12/25/18 17:40 U Benzodiazepines Scrn Presumptive negative 12/25/18 17:40 Presumptive negative 12/25/18 17:40 U Marijuana (THC) Screen Presumptive negative 12/25/18 17:40 Disclamer 12/25/18 17:40 Plasma/Serum Alcohol 0.22 % (0-0.07) H 12/25/18 17:11 Active Medications - Current Medications Current Medications: Generic Name Dose Route Start Last Admin Trade Name Freq PRN Reason Stop Dose Admin Clobetasol Propionate 1 applic 12/25/18 23:00 12/28/18 09:44 Temovate TP 1 applic BID FOREIGN Administration Folic Acid 1 mg 12/26/18 10:00 12/28/18 09:40 Folvite PO 1 mg QDAY FOREIGN Administration Hydromorphone HCl 0.5 mg 12/27/18 15:07 12/28/18 02:48 Dilaudid IV 0.5 mg Q4H PRN Administration Pain , Severe (7-10) Ceftriaxone Sodium 1 gm in 50 mls @ 100 mls/hr 12/25/18 22:06 12/27/18 23:01 Rocephin/Ns 1 Gm/50 Ml IV 100 mls/hr Q24HR@2200 FOREIGN Administration Protocol Metronidazole 500 mg in 100 mls @ 100 mls/hr 12/25/18 23:00 12/28/18 06:49 Flagyl 500 Mg/100 Ml IV 100 mls/hr Q8HR FOREIGN Administration Protocol Lorazepam 2 mg 12/25/18 22:33 12/26/18 01:13 Ativan IV 2 mg Q4H PRN Administration Agitation Metoclopramide HCl 10 mg 12/25/18 21:55 Reglan IV Q6H PRN Nausea And Vomiting Multivitamins 1 each 12/26/18 10:00 12/28/18 09:40 Theragran Tab PO 1 each QDAY FOREIGN Administration Ondansetron HCl 4 mg 12/25/18 21:55 Zofran IV Q8H PRN Nausea And Vomiting Oxycodone HCl 5 mg 12/25/18 22:00 12/28/18 09:40 Roxicodone PO 5 mg Q4H PRN Administration Pain, Moderate (4-6) Prednisolone Sodium Phosphate 40 mg 12/26/18 18:00 12/28/18 09:43 Orapred PO 01/01/19 17:59 40 mg DAILY FOREIGN Administration Sodium Chloride 10 ml 12/25/18 22:00 12/27/18 23:11 Sodium Chloride Flush Syringe 10 Ml IV 10 ml BID FOREIGN Administration Sodium Chloride 10 ml 12/25/18 21:55 Sodium Chloride Flush Syringe 10 Ml IV PRN PRN LINE FLUSH Thiamine HCl 100 mg 12/25/18 22:33 12/28/18 09:40 Vitamin B-1 PO 100 mg QDAY FOREIGN Administration Zolpidem Tartrate 5 mg 12/25/18 21:55 Ambien PO QHS PRN Insomnia Nutrition/Malnutrition Assess - Dietary Evaluation Nutrition/Malnutrition Findings: Nutrition Notes Start: 12/26/18 15:55 Freq: Status: Active Protocol: Document 12/26/18 15:55 RM (Rec: 12/26/18 16:03 [id number]) Nutrition Notes Need for Assessment generated from: MD Order Initial or Follow up Assessment Other Pertinent Diagnosis Hx cirrhosis, Abdominal pain, Alcohol intoxication, Colitis Current Diet Full liquid Labs/Tests Reviewed Pertinent Medications Reviewed Height 5 ft 5 in Weight 53.5 kg Bowie Body Weight (kg) 56.81 BMI 19.6 Subjective/Other Information Consulted for malnutrition. Screened for malnutrition and difficulty chewing. Pt asleep at time of visit. Per tech pt has been mostly sleeping and drinking juice. Stated pt also ate bites of grits this morning. No temporal or orbital wasting . Burn Absent Trauma Absent #1 Nutrition Diagnosis Inadequate oral intake Etiology alcohol intoxication, abdominal pain As Evidenced by Signs and Symptoms pt tech statement that pt has been mostly sleeping and drinking juice Is patient on ventilator? No Is Patient Ambulatory and/or Out of Bed No REE-([facility]-confined to bed) 1391.208 Calculation Used for Recommendations [facility] Additional Notes Protein Needs: 64-86g (1.2-1. 6g/kg) Fluid Needs: 1 ml/kcal Nutrition Intervention Change Diet Order: Advance diet when medically able Add Supplement/Snack (indicate name/kcal Ensure Clear 1 daily /protein ) Provides kCal: 240 Provides Protein (gm) 8 Goal #1 Diet advancement Anticipated Discharge Needs: Unable to determine at this time Follow-Up By: 12/29/18 Additional Comments Follow for malnutrition assessment, PO intakes and ONS intakes
--- NOTE | 2018-12-28 13:52 | Discharge Summary ---
Providers - Providers Date of Admission: 12/25/18 21:55 Attending physician: ADRIEN COHEN 12/25/18 19:51 Consult to Physician [CONS] Urgent Comment: Dr. Huddleston spoke with Dr. Ny @ 1949 Consulting Provider: RACHEL [place] Physician Instructions: Reason For Exam: alcoholic liver cirrhosis 12/25/18 22:34 Consult to Dietitian/Nutrition [CONS] Routine Physician Instructions: Reason For Exam: Reason for Consult: Malnutrition 12/27/18 12:02 Consult to Case Management [CONS] Routine Services Needed at Discharge: Fund Accounting Manager Notified:: copy given to cm Additional Physician Instructions: SNF Placement as per family request: Please send out Rory. Occupational Therapy Evaluate and Treat [CONS] Routine Comment: Reason For Exam: ADLs evaluation Physical Therapy Evaluation and Treat [CONS] Routine Comment: Reason For Exam: gait evaluation/ambulatory dysfunction [facility] Condition: [facility] Hospital course: Patient is a 48-year-old woman with a history of tobacco dependency, cirrhosis of the liver anemia, arthritis, portal hypertension, psoriasis, anxiety and depression who presented to [facility] ED with leg swelling and pains. ETOH level was 0.22 (normal less than 0.07). * CT abd/pelvis with iv contrast IMPRESSION: 1. The liver demonstrates evidence for cirrhosis and fatty metamorphosis 2. Diffuse edema of the wall involving the entire stomach, duodenum, and the entire colon. Differential includes enteritis and colitis as well as Crohn's disease. 3. Cholelithiasis 4. Ascites 5. 2 ventral hernias containing mesenteric vessels and fat in the left lower quadrant 6. Single borderline lymph node in the right groin * pCXR IMPRESSION: 1. No evidence of an acute pulmonary process. 2. Enlarged cardiac silhouette. This may be exaggerated by portable technique. Acute on chronic alcoholic liver failure: GI to evaluate, input noted, Steroids x 7 days Alcoholic cirrhosis of the liver with small ascites and portal hypertension Colitis/ileitis per CT abdomen/pelvis-On IV antibiotics with Rocephin and Flagyl Otitis externa with psoriasis of the ears: no ENT here, the steroids should help Moderate to severe psoriasis with acute flare-On topical steroid, oral steroids ordered Atypical Chest pain, rule out ACS-Serial troponin level monitoring Hypokalemia-We'll replete and monitor level Hyponatremia-On oral fluid restriction, will monitor sodium level Alcohol abuse/Alcohol intoxication with high risk for alcohol withdrawal-On alcohol withdrawal prophylaxis-Patient counseled on alcohol cessation Anemia of chronic disease-H/H stable Coagulopathy disorder-No evidence of acute bleed, patient received 10mg oral vitamin k and 10mg IV vitamin k on thursday12/27/18 and still coagulopathic. Severe instead of Moderate protein calorie malnutrition, poa-Dietitian consulted DVT prophylaxis with SCD and GI prophylaxis with famotidine Disposition: Continue inpatient care. Overall prognosis is poor. She wants her son Brennen Dickerson to make medical decision for her, followed by Pham in the event she is unable to make decisions for herself. Once GI clears she can go home. She is 2/7 days of prednisone. GI monitoring for response. Watch for etoh withdrawals. she c/o severe left leg pains: will get venous leg dopplers [facility]. But all she wants is increase in pain meds Now in MRSA contact isolation I was called into the room for a family meeting, patient had at least 5-6 of her children in the room, her daughter Rachel very upset about about Hospice evaluation and started yelling at me, threatening to leave AMA. Patient and entire family except son Pham are in denial regarding the damage alcohol has caused to the liver. Pham began to argue with his mom and Rachel about abstaining from alcohol. Sloane daughter in law came into the room later and she seems very reasonable and not in denial. I informed her that she will probably need a liver transplant after being sober. She will not be considered a liver transplant patient if she still drinking alcohol. She was threatening to leave AMA and asked if she could get script even if she left. I agreed and patient still left AMA without scripts. She later called back medical unit secretary and said she forgot the script and will come back the next day to get it. Disposition: DC-07 LEFT AGAINST MED ADVICE Time spent for discharge: 35 minutes Core Measure Documentation - Palliative Care Palliative Care/ Comfort Measures: Not Applicable - Core Measures Any of the following diagnoses?: none - VTE Discharge Requirements Deep Vein Thrombosis/Pulmonary Embolism Present on Admission: No Has pt received <5 days of overlap therapy or INR<2.0: No Anticoagulant overlap therapy prescribed at discharge: No Contraindication No Overlap Therapy order at DC: Not Indicated Exam - Physical Exam Narrative exam: Gen: ill appearing, cachetic NAD, Awake, Alert, Orientated HEENT: NCAT, EOMI, PERRL, OP Clear, bilateral ears red, with crusty lesion, excoriations with drainage. Neck: supple, no adenopathy, no thyromegaly, no JVD CVS/Heart: Regn tachycardia, normal S1S2, pulses present bilaterally Chest/Lungs: diminihsed bs bilaterally, Symmetrical chest expansion, good air entry bilaterally GI/Abdomen: distended, diffuse tenderness, good bowel sounds, no guarding or rebound /Bladder: no suprapubic tenderness, no CVA or paraspinal tenderness Extermity/Skin: ble edema, ears w/crusty lesions, bilateral legs with psorosis plagues MSK: FROM x 4 Neuro: CN 2-12 grossly intact except hearing loss bilateral poa, no new focal deficits Psych: anxious - Constitutional Vitals: Temp Pulse Resp BP Pulse Ox 98.5 F 82 18 98/68 96 12/27/18 16:45 12/28/18 09:09 12/27/18 16:45 12/28/18 09:09 12/27/18 16:45 Plan Activity: other (no strenous activity unless cleared by PCP) Diet: low salt Follow up with: JOSE M GONZALSE MD [Primary Care Provider] - 7 Days RACHEL NY MD [Staff Physician] - 7 Days Prescriptions: Nadolol [Corgard] 20 mg PO QDAY #30 tablet prednisoLONE SOD PHOSPHAT [Orapred] 40 mg PO DAILY #5 oral.liqd oxyCODONE [roxiCODONE] 5 mg PO Q4H PRN #15 tablet PRN Reason: Pain , Severe (7-10) Thiamine [Vitamin B-1] 100 mg PO QDAY #30 tablet Rifaximin [Xifaxan] 550 mg PO BID #60 tablet
== END 2018-12-28 14:05 | disposition left against medical advice (07) | DRG 432 ==
LOC: ED 16:37 → 3A 21:55
PROVIDERS: ADMIT Internal Medicine; ATTEND Internal Medicine
PROC: 3E0234Z Introduction of Serum, Toxoid and Vaccine into Muscle, Percutaneous Approach (ICD-10-PCS; principal; 2018-12-26)
DX: K70.40 Alcoholic hepatic failure without coma (principal); E43 Unspecified severe protein-calorie malnutrition; K76.6 Portal hypertension; K70.31 Alcoholic cirrhosis of liver with ascites; D68.9 Coagulation defect, unspecified; E87.1 Hypo-osmolality and hyponatremia; K52.9 Noninfective gastroenteritis and colitis, unspecified; R07.89 Other chest pain; E87.6 Hypokalemia; M19.90 Unspecified osteoarthritis, unspecified site; L40.9 Psoriasis, unspecified; F41.9 Anxiety disorder, unspecified; F32.9 Major depressive disorder, single episode, unspecified; H60.90 Unspecified otitis externa, unspecified ear; I24.9 Acute ischemic heart disease, unspecified; F10.129 Alcohol abuse with intoxication, unspecified; D63.8 Anemia in other chronic diseases classified elsewhere; K70.11 Alcoholic hepatitis with ascites; D69.6 Thrombocytopenia, unspecified; F17.200 Nicotine dependence, unspecified, uncomplicated; Z68.21 Body mass index [BMI] 21.0-21.9, adult; Z90.49 Acquired absence of other specified parts of digestive tract; Z23 Encounter for immunization
CPT/HCPCS: 36415; 71045; 74177; 76700; 80053; 80307; 80320; 81001; 82140; 82271; 82550; 82553; 83735; 84484; 85025; 85027; 85610; 85730; 87116; 90686; 90732; 93005; 93010; G0378; C9113; G0480; J0696; J1170; J2060; J2405; J3430; J3480; J7510; Q9967

== ENCOUNTER 2019-01-01 20:53 | Inpatient (IN) | payer MEDICAID ==
--- NOTE | 2019-01-01 21:36 | Emergency Department Report ---
Blank Doc - Documentation Documentation: 48 y/o female smoker and alcoholic with untreated liver disease presents to ED c/o 2 day history of swelling, left abdominal pain, chest pain and occasional sob. no hemoptysis or hematemesis. Trying to drink less and trying smoke less. last smoked a couple days ago and drink last about one week plan labs, ekg and imaging.
[2019-01-01 21:53] LABS: Hematocrit 35.2 % (30.3-42.9); Hemoglobin 12.3 gm/dl (10.1-14.3); Mean Corpuscular HGB Conc 35 % (30-34); Mean Corpuscular Volume 101 fl (79-97); Platelet Count 170 K/mm3 (140-440); Red Blood Count 3.47 M/mm3 (3.65-5.03); Red Cell Distribution Width 17.8 % (13.2-15.2)
[2019-01-01 22:18] LABS: Alanine Aminotransferase 45 units/L (7-56); Albumin 2.3 g/dL (3.9-5); BUN/Creatinine Ratio 30; Blood Urea Nitrogen 6 mg/dL (7-17); Calcium 7.4 mg/dL (8.4-10.2); Hemolysis Index 1
[2019-01-01] MEDS ORDERED: ROCEPHIN/NS 1 GM/50 ML 1 GM/50 ML BAG IV ONE (22:23)
[2019-01-01] MEDS ORDERED: FLAGYL 500 MG/100 ML 500 MG/100 ML BAG IV ONE (22:23)
[2019-01-01] MEDS ORDERED: MORPHINE IV ONE (22:23)
--- NOTE | 2019-01-01 22:25 | Emergency Department Report ---
ED General Adult HPI - General Chief complaint: Abdominal Pain Stated complaint: ABDOMINAL PAIN Time Seen by Provider: 01/01/19 21:31 Source: patient, family, RN notes reviewed, old records reviewed Mode of arrival: Ambulatory Limitations: No Limitations - History of Present Illness Initial comments: This is a 48-year-old female. The patient is not known to this provider previously. She does not have a local primary care doctor. Past medical history includes tobacco dependency, cirrhosis of liver, anemia, arthritis, portal hypertension, psoriasis, anxiety, depression, dependent edema, alcoholism. 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 Patient recently signed out AGAINST MEDICAL ADVICE. Patient presents to the ER today with a complaint of acute on chronic abdominal pain. The abdominal pain is epigastric and left lower quadrant and all over. It increases with palpation. It decreases with rest. There is no vomiting. No fevers. No irritative urinary symptoms. Patient describes chest discomfort, but points to her epigastric region. She also describes lower extremity swelling and arthralgias, which are apparently present when compared to prior evaluation. Recently, patient was found to have poor prognosis, hospice discussion was initiated, and this reportedly upset the patient and family. -: Gradual Location: abdomen, left, right, lower extremity Radiation: non-radiation Quality: aching Consistency: intermittent Improves with: rest Worsens with: movement - Related Data Previous Rx's Medication Instructions Recorded Last Taken Type Ferrous Sulfate [Feosol 325 MG tab] 325 mg PO BID #60 tablet 09/04/17 Unknown Rx Folic Acid [Folvite] 1 mg PO QDAY #30 tablet 09/04/17 Unknown Rx Clobetasol 0.05% [Temovate] 1 applic TP BID #7 tube 12/28/18 Unknown Rx Nadolol [Corgard] 20 mg PO QDAY #30 tablet 12/28/18 Unknown Rx Rifaximin [Xifaxan] 550 mg PO BID #60 tablet 12/28/18 Unknown Rx Thiamine [Vitamin B-1] 100 mg PO QDAY #30 tablet 12/28/18 Unknown Rx oxyCODONE [roxiCODONE] 5 mg PO Q4H PRN #15 tablet 12/28/18 Unknown Rx prednisoLONE SOD PHOSPHAT [Orapred] 40 mg PO DAILY #5 oral.liqd 12/28/18 Unknown Rx Allergies Allergy/AdvReac Type Severity Reaction Status Date / Time No Known Allergies Allergy Verified 11/12/16 08:43 ED Review of Systems ROS: Stated complaint: ABDOMINAL PAIN Other details as noted in HPI Constitutional: malaise, weakness Eyes: denies: eye discharge ENT: denies: epistaxis Respiratory: denies: wheezing Cardiovascular: edema Gastrointestinal: abdominal pain Genitourinary: denies: dysuria Musculoskeletal: back pain, arthralgia, myalgia Skin: lesions Neurological: weakness Psychiatric: anxiety ED Past Medical Hx - Past Medical History Previous Medical History?: Yes Hx Hypertension: Yes Hx Congestive Heart Failure: No Hx Diabetes: No Hx Liver Disease: Yes (CIRRHOSIS) Hx Arthritis: Yes (knees arms hands) Hx Psychiatric Treatment: Yes (anxiety, DEPRESSION) Hx Asthma: No Hx COPD: No Hx HIV: No Additional medical history: psoriasis - Surgical History Past Surgical History?: Yes Hx Appendectomy: Yes Additional Surgical History: - Social History Smoking Status: Current Every Day Smoker Substance Use Type: Alcohol - Medications Home Medications: Home Medications Medication Instructions Recorded Confirmed Last Taken Type Ferrous Sulfate [Feosol 325 MG tab] 325 mg PO BID #60 tablet 09/04/17 Unknown Rx Folic Acid [Folvite] 1 mg PO QDAY #30 tablet 09/04/17 Unknown Rx Clobetasol 0.05% [Temovate] 1 applic TP BID #7 tube 12/28/18 Unknown Rx Nadolol [Corgard] 20 mg PO QDAY #30 tablet 12/28/18 Unknown Rx Rifaximin [Xifaxan] 550 mg PO BID #60 tablet 12/28/18 Unknown Rx Thiamine [Vitamin B-1] 100 mg PO QDAY #30 tablet 12/28/18 Unknown Rx oxyCODONE [roxiCODONE] 5 mg PO Q4H PRN #15 tablet 12/28/18 Unknown Rx prednisoLONE SOD PHOSPHAT [Orapred] 40 mg PO DAILY #5 oral.liqd 12/28/18 Unknown Rx ED Physical Exam - General Limitations: Physical Limitation General appearance: alert, anxious, in distress - Head Head exam: Present: atraumatic, normocephalic - Eye Eye exam: Present: normal appearance, EOMI, scleral icterus - ENT ENT exam: Present: normal exam, normal orophraynx, mucous membranes moist, normal external ear exam - Neck Neck exam: Present: normal inspection, full ROM. Absent: tenderness, meningismus - Respiratory Respiratory exam: Present: normal lung sounds bilaterally. Absent: respiratory distress - Cardiovascular Cardiovascular Exam: Present: regular rate, normal rhythm, normal heart sounds. Absent: bradycardia, systolic murmur, diastolic murmur, rubs, gallop - GI/Abdominal GI/Abdominal exam: Present: soft, distended, tenderness, organomegaly. Absent: guarding, rebound, rigid, pulsatile mass - Extremities Exam Extremities exam: Present: normal inspection (ecchymoses noted), pedal edema, ot her (2+ pulses noted in the bilateral upper, lower extremities. Compartments soft. No long bony tenderness. The pelvis is stable.). Absent: calf tenderness - Back Exam Back exam: Present: normal inspection, full ROM. Absent: tenderness, CVA tenderness (L), paraspinal tenderness, vertebral tenderness - Neurological Exam Neurological exam: Present: alert, other (Extraocular movements intact. Tongue midline. No facial droop. Facial sensation intact to light touch in the V1, V2, V3 distribution bilaterally. 5 and 5 strength in 4 extremities.. Sensation is intact to light touch in 4 extremities.). Absent: motor sensory deficit - Psychiatric Psychiatric exam: Present: anxious - Skin Skin exam: Present: warm, ecchymosis, other (patient is jaundiced. Diffuse psoriatic lesions noted) ED Course Vital Signs 01/01/19 01/01/19 01/01/19 20:58 22:10 22:16 Temperature 98.1 F 98.4 F Pulse Rate 78 75 96 H Respiratory 18 23 13 Rate Blood Pressure 102/56 Blood Pressure 97/63 [Left] O2 Sat by Pulse 100 95 99 Oximetry 01/01/19 01/01/19 01/01/19 22:30 22:57 23:00 Temperature Pulse Rate 77 Respiratory 12 Rate Blood Pressure 97/63 89/55 Blood Pressure 90/55 [Left] O2 Sat by Pulse 100 Oximetry 01/01/19 01/01/19 01/01/19 23:25 23:30 23:40 Temperature Pulse Rate Respiratory Rate Blood Pressure 89/55 89/55 Blood Pressure 80/50 [Left] O2 Sat by Pulse 98 98 Oximetry 01/01/19 01/02/19 01/02/19 23:46 00:00 00:16 Temperature Pulse Rate 76 81 95 H Respiratory 15 18 16 Rate Blood Pressure 97/63 91/57 99/64 Blood Pressure [Left] O2 Sat by Pulse 100 100 98 Oximetry 01/02/19 01/02/19 01/02/19 00:30 00:46 01:00 Temperature Pulse Rate 75 71 70 Respiratory 20 20 15 Rate Blood Pressure 99/64 112/83 84/49 Blood Pressure [Left] O2 Sat by Pulse 97 96 98 Oximetry - Reevaluation(s) Reevaluation #1: 01/01/19 23:33 Differential diagnosis, including not limited to: Ascites and hepatic insufficiency, colitis, diverticulitis, dependent edema, hypervolemic hypo natremia * Assessment and plan: 48-year-old female likely experiencing natural progression and history of her underlying chronic multiple medical issues which appear to be poorly managed. The patient's is amenable to hospitalization. Blood pressure in the low to high 90s, 500 mL of normal saline have been ordered for resuscitation purposes. Lactic acidosis reviewed and appreciated, this may be multifactorial, including hepatic insufficiency, poor hepatic clearance, and possible infectious etiology. We will continue the patient on ceftriaxone and metronidazole. We will continue the patient on contact precautions. Extensive discussion had with patient and family regarding hospice, and overall poor prognosis. Patient at this point time is amenable to speaking to someone from hospice. INR worse than on prior, suggestive of worsening renal insufficiency. Patient also found to have wo rsening hyperbilirubinemia. EKG changes, prolonged FL interval, prolonged QTC, likely secondary to hypomagnesemia, hypokalemia. We will replete these as well. Overall prognosis is quite poor, we will admit the patient to the medical service once noncontrast CT scan of the abdomen and pelvis has resulted. We have discussed with gastroenterology on-call, Dr. Wood, who indicates his group can follow in consultation. * Reevaluation #2: 01/01/19 23:37 Patient now complaining of nausea. Additional pain medication requested. Given prolonged FL interval, prolonged QTC, electrolyte derangement, not a candidate at this point in time for Reglan, Zofran, or Phenergan. Vitamin B6 ordered. Reevaluation #3: 01/01/19 23:41 Blood pressure 80/50. With lactic acidosis and hypotension, patient will receive full fluid resuscitation. If she is still hypotensive after fluids, we will initiate vasopressor therapy. Reevaluation #4: 01/02/19 00:16 Blood pressure 99/64. CT scan of the abdomen and pelvis reviewed and cindy reciated. Patient clinically looks improved. Dr. Jarquin, Hospital physician, to admit patient to the medical service. Prognosis remains guarded. Reevaluation #5: 01/02/19 01:08 Blood pressure in the 80s. Right lower extremity intraosseous line inserted. No epinephrine ordered. critical care physician has been paged. Hospital physician updated. - Consultations Consultation #1: 01/02/19 01:13 Dr Judie Duran to follow in icu for critical care consultation Consultation #2: 01/02/19 01:54 blood pressure improved eating and watching TV in no acute distress - IO Right Tibia Consent Obtained: emergent situation Time Out Performed: Yes Anesthetic Used: Lidocaine 1%, with Epi Amount of Anesthetic Used (mls): 5 IO Instrument Used to Penetrate the Cortex: standard IO needle Patient Tolerated Procedure: well Complications: none Additional Comments: 25 mm 15-gauge intraosseous line placed onto the right proximal tibia, using standard landmarks technique, after the insertion site was cleansed with aseptic technique using chlorhexidine. Bone marrow aspirated easily. No obvious extravasation. 5 mL of 1% lidocaine with epinephrine then injected into IO site. Patient tolerated with difficulty. ED Medical Decision Making - Lab Data Result diagrams: 01/01/19 21:36 01/01/19 21:36 Vital Signs 01/01/19 20:58 Temperature 98.1 F Pulse Rate 78 Respiratory 18 Rate Blood Pressure 102/56 O2 Sat by Pulse 100 Oximetry Lab Results 01/01/19 01/01/19 Range/Units 21:36 21:36 WBC 10.4 (4.5-11.0) K/mm3 RBC 3.47 L (3.65-5.03) M/mm3 Hgb 12.3 (10.1-14.3) gm/dl Hct 35.2 (30.3-42.9) % MCV 101 H (79-97) fl MCH 36 H (28-32) pg MCHC 35 H (30-34) % RDW 17.8 H (13.2-15.2) % Plt Count 170 (140-440) K/mm3 Sodium 129 L (137-145) mmol/L Chloride 88.6 L (98-107) mmol/L Carbon Dioxide 29 (22-30) mmol/L Anion Gap 14 mmol/L BUN 6 L (7-17) mg/dL Creatinine < 0.2 L (0.7-1.2) mg/dL Estimated GFR > 60 ml/min BUN/Creatinine Ratio 30 % Glucose 122 H (65-100) mg/dL Calcium 7.4 L (8.4-10.2) mg/dL Total Bilirubin 15.20 H (0.1-1.2) mg/dL AST 87 H (5-40) units/L ALT 45 (7-56) units/L Alkaline Phosphatase 252 H (35-129) units/L Total Protein 5.8 L (6.3-8.2) g/dL Albumin 2.3 L (3.9-5) g/dL Albumin/Globulin Ratio 0.7 % Lipase 41 (13-60) units/L - EKG Data -: EKG Interpreted by Vt EKG shows normal: sinus rhythm Rate: normal - EKG Data 01/01/19 23:32 Normal sinus, 73 bpm, normal axis, FL interval prolonged. QTc prolonged. Biphasic T waves V2. This is an abnormal EKG. This is not consistent with ST elevation myocardial infarction. - Radiology Data Radiology results: pending, report reviewed, image reviewed Print Report Referring Physician: JULIA MCGINNIS Patient Name: MAGY IYER Date of : 1970 Sex: Female Report Date: 2018-12-25 Report Status: Finalized Findings [facility] [address] [place] [address] Cat Scan Report Signed Patient: MAGY IYER MR#: [id number] : 1970 Acct:[id number] Age/Sex: 48 / F ADM Date: 12/25/18 Loc: ED Attending Dr: Ordering Physician: JULIA MCGINNIS MD Date of Service: 12/25/18 Procedure(s): CT abdomen pelvis w con Accession Number(s): [id number] cc: JULIA MCGINNIS MD PROCEDURE: CT ABDOMEN PELVIS W CON TECHNIQUE: Computerized axial tomography of the abdomen and pelvis was performed with intravenous contrast. CT DOSE LENGTH PRODUCT: 544.1 mGycm HISTORY: lower abd pain, liver cirrhosis COMPARISONS: Ultrasound abdomen 11/12/2016 . FINDINGS: Visualized lower thorax: No significant abnormality. Liver: Liver is diffusely decreased in density consistent with diffuse moderate fatty liver with focal areas of sparing. There is mild lobulation of contour suggesting cirrhosis. This also accounts for the heterogeneous enhancement pattern throughout the liver. Spleen: Normal size and attenuation. Gallbladder and biliary system: Gallstones in the gallbladder are noted.. Pancreas: Normal. Adrenals: Normal. Kidneys: Normal. GI tract: There is diffuse concentric wall thickening of the entire colon. There is also diffuse concentric wall thickening of the stomach. There is wall thickening of the duodenum . The jejunum and ileum appear normal. Differential includes enteritis and colitis as well as Crohn's disease. Lymph nodes and mesentery: There is a 1 cm lymph node medial to the right femoral artery (axial image 175/191).. Vasculature: Normal.. Bladder: Normal. Reproductive organs: Normal. Peritoneum: There is moderate ascites around the liver, in the paracolic gutters, and in the pelvis.. Musculoskeletal structures: Degenerative disc narrowing at L5-S1 is noted with spurring anteriorly and posteriorly. Other: There are 2 ventral hernias in the left lower quadrant, both of which contain fat and mesenteric vessels which are otherwise normal. There are also subcutaneous varices along the intra- abdominal wall. IMPRESSION: 1. The liver demonstrates evidence for cirrhosis and fatty metamorphosis 2. Diffuse edema of the wall involving the entire stomach, duodenum, and the entire colon. Differential includes enteritis and colitis as well as Crohn's disease. 3. Cholelithiasis 4. Ascites 5. 2 ventral hernias containing mesenteric vessels and fat in the left lower quadrant 6. Single borderline lymph node in the right groin This document is electronically signed by Denise Quinteros MD., December 25 2018 07:22:55 PM ET Transcribed By: [facility] Dictated By: DENISE QUINTEROS MD Electronically Authenticated By: DENISE QUINTEROS MD Signed Date/Time: 12/25/181924 DD/ 04 TD/TT: 12/25/181904 Print Report Referring Physician: JULIA MCGINNIS Patient Name: MAGY IYER Date of : 1970 Sex: Female Report Date: 2018-12-25 Report Status: Finalized Findings [facility] [address] [place] [address] Ultrasound Report Signed Patient: MAGY IYER MR#: [id number] : 1970 Acct:[id number] Age/Sex: 48 / F ADM Date: 12/25/18 Loc: ED Attending Dr: Ordering Physician: JULIA MCGINNIS MD Date of Service: 12/25/18 Procedure(s): US abdomen complete Accession Number(s): [id number] cc: JULIA MCGINNIS MD PROCEDURE: US ABDOMEN COMPLETE TECHNIQUE: Real-time sonography in multiple planes of the abdomen was performed with image documentation. HISTORY: elevated LFT'S, hx of cirrhosis COMPARISONS: Ultrasound RUQ 11/12/2016, CT A/P 12/25/2018 . FINDINGS: Liver: Normal size but heterogeneous and increased in echotexture with no evidence of cystic or solid mass lesions. Findings are consistent with cirrhosis and probable underlying fatty liver. Gallbladder: Multiple gallstones are noted in the gallbladder. Small amount of pericholecystic fluid is noted. No wall thickening or sonographic Regalado's sign. Intrahepatic bile ducts: Normal caliber . Extrahepatic bile ducts: Normal caliber. The common bile duct measures 4.1 mm in diameter Pancreas: Normal as visualized with suboptimal depiction of the pancreatic tail. Aorta: Visualized portions appear normal. Aorta measures 1.7 cm in diameter IVC: Visualized portions appear normal. RIGHT kidney: Normal echotexture. No focal renal mass, calculus, or hydronephrosis. Length: 12.4 cm. LEFT kidney: Normal echotexture. No focal renal mass, calculus, or hydronephrosis. Length: 12.8 cm. Spleen: Normal size and echotexture. No focal lesions. The spleen measures 11.9 cm in length Intraperitoneal fluid: A small amount of ascites around the liver. . Other: None . IMPRESSION: 1. The liver is heterogeneous and increased in echogenicity, unchanged. Findings are consistent with cirrhosis and probable underlying fatty liver 2. Cholelithiasis with pericholecystic fluid. However, the gallbladder wall is normal in thickness. Similar findings are noted previously 3. Ascites around the liver This document is electronically signed by Denise Quinteros MD., December 25 2018 08:54:35 PM ET Transcribed By: [facility] Dictated By: DENISE QUINTEROS MD Electronically Authenticated By: DENISE QUINTEROS MD Signed Date/Time: 12/25/182055 Print Report Referring Physician: JONNY PEREZ Patient Name: MAGY IYER Date of : 1970 Sex: Female Report Date: 2019-01-01 Report Status: Finalized Findings [facility] [address] [place] [address] Cat Scan Report Signed Patient: MAGY IYER MR#: [id number] : 1970 Acct:[id number] Age/Sex: 48 / F ADM Date: 01/01/19 Loc: ED Attending Dr: Ordering Physician: JONNY PEREZ MD Date of Service: 01/01/19 Procedure(s): CT abdomen pelvis wo con Accession Number(s): [id number] cc: JONNY PEREZ MD PROCEDURE: CT abdomen and pelvis without contrast. TECHNIQUE: Computerized axial tomography of the abdomen and pelvis was performed without intravenous contrast. This study is performed without intravascular contrast material and its sensitivity for abdominal and pelvic pathology, including neoplasms, inflammation, abscess, free fluid, thrombosis, arterial dissection and infarction, is reduced compared with a contrast enhanced study. CT DOSE LENGTH PRODUCT: 809.6 mGycm HISTORY: Abdominal pain. COMPARISONS: None. FINDINGS: The lung bases are clear. There are no pleural effusions. The heart size is normal. The margins of the liver are slightly irregular. This could indicate cirrhosis. Clinical correlation is recommended. There are some varices in the anterior abdomen. There is also a small amount of ascites present. These findings suggest portal hypertension. There is mild splenomegaly. There are small calcified gallstones. There is no biliary dilatation. The pancreas is grossly normal. The adrenal glands are not enlarged. Both kidneys appear normal in size and configuration. The abdominal aorta has a normal caliber. There is no retroperitoneal adenopathy. The unopacified gastrointestinal tract is unremarkable. The bladder, uterus and adnexal regions appear normal. The regional skeleton appears intact. There is a left-sided ventral wall hernia containing abdominal fat and mesenteric vessels versus varices. This hernia is located just medial to the left rectus abdominis muscle in the upper pelvis. IMPRESSION: Possible liver cirrhosis with portal hypertension and varices. Small amount of ascites. Mild splenomegaly. Cholelithiasis. Left-sided ventral wall hernia. This document is electronically signed by Jonny Lynne MD., January 01 2019 11:59:07 PM ET Transcribed By: [facility] Dictated By: JONNY LYNNE MD Electronically Authenticated By: JONNY LYNNE MD Signed Date/Time: 01/02/19 0001 Critical Care Time: Yes Critical care time in (mins) excluding proc time.: 35 Critical care attestation.: If time is entered above; I have spent that time in minutes in the direct care of this critically ill patient, excluding procedure time. ED Disposition Clinical Impression: Malnutrition, History of alcohol abuse, Coagulopathy, Elevated LFTs, Hyponatremia, Hypokalemia, Hypotension Disposition: -09 OP ADMIT IP TO THIS HOSP Is pt being admited?: Yes Condition: Critical Instructions: Abdominal Pain (ED) Referrals: JOSE M GONZALES MD [Primary Care Provider] - 3-5 Days
[2019-01-01 22:32] LABS: Anisocytosis 1+; Band Neutrophils # (Manual) 0.1 K/mm3; Eosinophils % (Manual) 0 % (0.0-4.3); Total Cells Counted 100
[2019-01-01 22:33] LABS: Hypochromasia 1+; Target Cells 1+
[2019-01-01 22:34] LABS: Platelet Estimate Consistent w Auto; Poikilocytosis Few
[2019-01-01] MEDS ORDERED: K-DUR PO ONE (22:48)
[2019-01-01] MEDS ORDERED: NACL 0.9% 500 ML 500 ML IV ONE ×2 (22:58→23:37)
[2019-01-01 23:03] LABS: Bacteria,Urine 1+ /HPF (Negative); Bilirubin,Urine MOD (Negative); Blood,Urine MOD (Negative); Color,Urine Amber (Yellow); Mucus,Urine 3+ /HPF
[2019-01-01 23:11] LABS: Bilirubin,Direct 11.2 mg/dL (0-0.2)
[2019-01-01 23:13] LABS: INR 1.83 (0.87-1.13)
[2019-01-01 23:14] LABS: Partial Thromboplastin Time 47.2 Sec. (24.2-36.6)
[2019-01-01 23:14] LABS: Ictotest,Urine Positive (Negative)
[2019-01-01] MEDS ORDERED: MAGNESIUM SULFATE 2GM/50ML 2 GM/50 ML BAG IV ONE (23:27)
[2019-01-01] MEDS ORDERED: SUBLIMAZE IV ONE (23:36)
[2019-01-01] MEDS ORDERED: NACL 0.9% 1000 ML 1,000 ML IV ONE (23:40)
[2019-01-01] MEDS ORDERED: VITAMIN B-6 PO ONE (23:56)
--- NOTE | 2019-01-02 00:01 | Cat Scan Report ---
PROCEDURE: CT abdomen and pelvis without contrast. TECHNIQUE: Computerized axial tomography of the abdomen and pelvis was performed without intravenous contrast. This study is performed without intravascular contrast material and its sensitivity for ab dominal and pelvic pathology, including neoplasms, inflammation, abscess, free fluid, thrombosis, art erial dissection and infarction, is reduced compared with a contrast enhanced study. CT DOSE LENGTH PRODUCT: 809.6 mGycm HISTORY: Abdominal pain. COMPARISONS: None. FINDINGS: The lung bases are clear. There are no pleural effusions. The heart size is normal. The margins of th e liver are slightly irregular. This could indicate cirrhosis. Clinical correlation is recommended. T here are some varices in the anterior abdomen. There is also a small amount of ascites present. These findings suggest portal hypertension. There is mild splenomegaly. There are small calcified gallston es. There is no biliary dilatation. The pancreas is grossly normal. The adrenal glands are not enlarg ed. Both kidneys appear normal in size and configuration. The abdominal aorta has a normal caliber. T here is no retroperitoneal adenopathy. The unopacified gastrointestinal tract is unremarkable. The bl adder, uterus and adnexal regions appear normal. The regional skeleton appears intact. There is a lef t-sided ventral wall hernia containing abdominal fat and mesenteric vessels versus varices. This aidee ia is located just medial to the left rectus abdominis muscle in the upper pelvis. IMPRESSION: Possible liver cirrhosis with portal hypertension and varices. Small amount of ascites. Mild splenome gustavo. Cholelithiasis. Left-sided ventral wall hernia. This document is electronically signed by Jonny Koroma MD., January 01 2019 11:59:07 PM ET
[2019-01-02] MEDS: KCL 10MEQ/100ML 10 MEQ/100 ML BAG IV SCH ×10 (00:15→19:06)
[2019-01-02] MEDS ORDERED: XYLOCAINE 2%/ EPI 1:200,000 INFILTRATI ONE (00:54)
[2019-01-02] MEDS ORDERED: MORPHINE ONE (01:07)
[2019-01-02] MEDS ORDERED: MORPHINE IV ONE ×2 (01:10→04:37)
[2019-01-02] MEDS ORDERED: NACL 0.9% 500 ML 500 ML IV ONE (01:10)
--- NOTE | 2019-01-02 01:17 | History and Physical Report ---
History of Present Illness Date of examination: 01/02/19 History of present illness: 48 year old woman history of alcohol cirrhosis, depression, anxiety, psoriasis, portal hypertension, psoriasis, hard of hearing was admitted to the hospital on December 25, she left AGAINST MEDICAL ADVICE on the . Patient was treated for colitis, enteritis among others. After leaving here, she was taken to a hospital where she stayed for one day. She does not know what medication she was discharged on. Patient stated that her abdomen is More distended, she has lower extremity edema. Still complaining of left lower quadrant pain. Patient was started on Rocephin, Flagyl, she became hypotensive in the ER and was started on Levophed drip Review of systems Constitutional: no weight loss, chills, fever Ears, eyes, nose, mouth and throat: no nasal congestion, no nasal discharge, no sinus pressure, no vision change, no red eye. Neck: No neck pain or rigidity. Cardiovascular: no palpitations, chest pain Respiratory: no cough, shortness of breath Gastrointestinal: no hematochezia, abdominal pain Genitourinary : no frequency , no hematuria Musculoskeletal: no joint swelling or muscle ache Integumentary: no rash, no pruritis Neurological: no parathesias, no focal weakness Endocrine: no cold or heat intolerance, no polyuria or polydipsia Hematologic/Lymphatic: no easy bruising, no easy bleeding, no gland swelling Allergic/Immunologic: no urticaria, no angioedema. PAST MEDICAL HISTORY: alcohol cirrhosis, depression, anxiety, psoriasis, portal hypertension PAST SURGICAL HISTORY: Appendectomy, SOCIAL HISTORY: quit alcohol,no drugs, +tobacco FAMILY HISTORY: Hypertension Medications and Allergies Allergies Allergy/AdvReac Type Severity Reaction Status Date / Time No Known Allergies Allergy Verified 11/12/16 08:43 Home Medications Medication Instructions Recorded Confirmed Last Taken Type Clobetasol 0.05% [Temovate] 1 applic TP BID #7 tube 12/28/18 01/02/19 Unknown Rx Nadolol [Corgard] 20 mg PO QDAY #30 tablet 12/28/18 01/02/19 Unknown Rx Rifaximin [Xifaxan] 550 mg PO BID #60 tablet 12/28/18 01/02/19 Unknown Rx Thiamine [Vitamin B-1] 100 mg PO QDAY #30 tablet 12/28/18 01/02/19 Unknown Rx prednisoLONE SOD PHOSPHAT [Orapred] 40 mg PO DAILY #5 oral.liqd 12/28/18 01/02/19 Unknown Rx Active Meds: Active Medications Potassium Chloride (Kcl 10meq/100ml) 10 meq in 100 mls @ 100 mls/hr IV Q1H FOREIGN Stop: 01/02/19 02:59 Last Admin: 01/02/19 00:15 Dose: 100 mls/hr Documented by: Norepinephrine (Levophed Drip 4 Mg/Ns 250 Ml) 4 mg in 250 mls @ 7.5 mls/hr IV TITR FOREIGN; Protocol Exam - Physical Exam Narrative exam: General Apperance: The patient lying in bed, breathing comfortable HEENT: Normocephalic, atraumatic. Pupils equally round and reactive to light, EOMI, no sclericterus or JVD or thyromegaly or nodule. , no carotid bruit, mucous membranes moist, no exudate or erythema Heart: S1-S2, regular is rhythm Lungs: Clear to auscultation bilaterally, breathing comfortable Abdomen: Positive bowel sounds, soft, nontender, nondistended, no organomegaly Extremities: No edema cyanosis clubbing Skin: + Psoriasis plaques, no rash, nodule, warm and dry Neuro: cranial nerves 2-12 intact, speech is fluent, motor/sensory intact - Constitutional Vitals: Temp Pulse Resp BP Pulse Ox 98.4 F 70 15 84/49 98 01/01/19 22:10 01/02/19 01:00 01/02/19 01:00 01/02/19 01:00 01/02/19 01:00 Results - Labs CBC & Chem 7: 01/03/19 04:20 01/03/19 04:20 Labs: Abnormal lab results 01/01/19 01/01/19 01/01/19 Range/Units 21:36 21:36 22:23 RBC 3.47 L (3.65-5.03) M/mm3 MCV 101 H (79-97) fl MCH 36 H (28-32) pg MCHC 35 H (30-34) % RDW 17.8 H (13.2-15.2) % Seg Neuts % (Manual) 76.0 H (40.0-70.0) % Lymphocytes % (Manual) 13.0 L (13.4-35.0) % Seg Neutrophils # Man 7.9 H (1.8-7.7) K/mm3 PT (12.2-14.9) Sec. INR (0.87-1.13) APTT (24.2-36.6) Sec. Sodium 129 L (137-145) mmol/L Potassium 2.3 L* D (3.6-5.0) mmol/L Chloride 88.6 L (98-107) mmol/L BUN 6 L (7-17) mg/dL Creatinine < 0.2 L (0.7-1.2) mg/dL Glucose 122 H (65-100) mg/dL Lactic Acid (0.7-2.0) mmol/L Calcium 7.4 L (8.4-10.2) mg/dL Magnesium (1.7-2.3) mg/dL Total Bilirubin 15.20 H (0.1-1.2) mg/dL Direct Bilirubin 11.2 H (0-0.2) mg/dL AST 87 H (5-40) units/L Alkaline Phosphatase 252 H (35-129) units/L Total Protein 5.8 L (6.3-8.2) g/dL Albumin 2.3 L (3.9-5) g/dL Urine WBC (Auto) 11.0 H (0.0-6.0) /HPF U Epithel Cells (Auto) 39.0 H (0-13.0) /HPF 01/01/19 01/01/19 01/01/19 Range/Units 22:51 22:51 22:51 RBC (3.65-5.03) M/mm3 MCV (79-97) fl MCH (28-32) pg MCHC (30-34) % RDW (13.2-15.2) % Seg Neuts % (Manual) (40.0-70.0) % Lymphocytes % (Manual) (13.4-35.0) % Seg Neutrophils # Man (1.8-7.7) K/mm3 PT 20.8 H (12.2-14.9) Sec. INR 1.83 H (0.87-1.13) APTT 47.2 H (24.2-36.6) Sec. Sodium (137-145) mmol/L Potassium (3.6-5.0) mmol/L Chloride (98-107) mmol/L BUN (7-17) mg/dL Creatinine (0.7-1.2) mg/dL Glucose (65-100) mg/dL Lactic Acid 2.50 H* (0.7-2.0) mmol/L Calcium (8.4-10.2) mg/dL Magnesium 1.50 L (1.7-2.3) mg/dL Total Bilirubin (0.1-1.2) mg/dL Direct Bilirubin (0-0.2) mg/dL AST (5-40) units/L Alkaline Phosphatase (35-129) units/L Total Protein (6.3-8.2) g/dL Albumin (3.9-5) g/dL Urine WBC (Auto) (0.0-6.0) /HPF U Epithel Cells (Auto) (0-13.0) /HPF - Imaging and Cardiology CT scan - abdomen: report reviewed CT scan - pelvis: report reviewed Assessment and Plan Assessment Hypotension Colitis/enteritis Alcoholic Cirrhosis with small amount of ascites hyponatremia Coagulopathy Depression Psoriasis Anxiety Portal hypertension with varices Plan Admit to medicine Continue levophed drip, consult critical care Continue Jada Byers, consult GI Start vitamin K, obtain records from [facility] DVT prophylaxis, potassium and magnesium repleted
[2019-01-02] MEDS: LEVOPHED DRIP 4 MG/NS 250 ML 4 MG/250 ML BAG IV SCH ×2 (01:35→13:03)
[2019-01-02] MEDS ORDERED: TYLENOL PO PRN (01:52)
[2019-01-02] MEDS ORDERED: ZOFRAN IV PRN (01:52)
[2019-01-02] MEDS ORDERED: SODIUM CHLORIDE FLUSH SYRINGE 10 ML IV PRN (01:52)
--- NOTE | 2019-01-02 03:54 | Consultation ---
History of Present Illness Consult date: 01/02/19 Requesting physician: GUY MENENDEZ History of present illness: 48 year old woman history of alcohol cirrhosis, depression, anxiety, psoriasis, portal hypertension, psoriasis, hard of hearing was admitted to the hospital on December 25, she left AGAINST MEDICAL ADVICE on the . Patient was treated for colitis, enteritis among others. After leaving here, she was taken to a hospital where she stayed for one day. She does not know what medication she was discharged on. Patient stated that her abdomen is More distended, she has lower extremity edema. Still complaining of left lower quadrant pain. Patient was started on Rocephin, Flagyl, she became hypotensive in the ER and was started on Levophed drip. She was transferred to the ICU and I have been consulted for critical care. Patient was seen and examined. Vitals, labs, medications, chart and imaging reviewed. Review of systems Constitutional: no weight loss, chills, fever Ears, eyes, nose, mouth and throat: no nasal congestion, no nasal discharge, no sinus pressure, no vision change, no red eye. Neck: No neck pain or rigidity. Cardiovascular: no palpitations, chest pain Respiratory: no cough, shortness of breath Gastrointestinal: no hematochezia, abdominal pain Genitourinary : no frequency , no hematuria Musculoskeletal: no joint swelling or muscle ache Integumentary: no rash, no pruritis Neurological: no parathesias, no focal weakness Endocrine: no cold or heat intolerance, no polyuria or polydipsia Hematologic/Lymphatic: no easy bruising, no easy bleeding, no gland swelling Allergic/Immunologic: no urticaria, no angioedema. PAST MEDICAL HISTORY: alcohol cirrhosis, depression, anxiety, psoriasis, portal hypertension PAST SURGICAL HISTORY: Appendectomy, SOCIAL HISTORY: quit alcohol,no drugs, +tobacco FAMILY HISTORY: Hypertension Medications and Allergies Allergies Allergy/AdvReac Type Severity Reaction Status Date / Time No Known Allergies Allergy Verified 11/12/16 08:43 Home Medications Medication Instructions Recorded Confirmed Last Taken Type Clobetasol 0.05% [Temovate] 1 applic TP BID #7 tube 12/28/18 01/02/19 Unknown Rx Nadolol [Corgard] 20 mg PO QDAY #30 tablet 12/28/18 01/02/19 Unknown Rx Rifaximin [Xifaxan] 550 mg PO BID #60 tablet 12/28/18 01/02/19 Unknown Rx Thiamine [Vitamin B-1] 100 mg PO QDAY #30 tablet 12/28/18 01/02/19 Unknown Rx prednisoLONE SOD PHOSPHAT [Orapred] 40 mg PO DAILY #5 oral.liqd 12/28/18 01/02/19 Unknown Rx Active Meds: Active Medications Acetaminophen (Tylenol) 650 mg PO Q4H PRN PRN Reason: Pain MILD(1-3)/Fever >100.5/FAULKNER Norepinephrine (Levophed Drip 4 Mg/Ns 250 Ml) 4 mg in 250 mls @ 7.5 mls/hr IV TITR FOREIGN; Protocol Last Titration: 01/02/19 02:20 Dose: 6 mcg/min, 22.5 mls/hr Documented by: Ceftriaxone Sodium (Rocephin/Ns 1 Gm/50 Ml) 1 gm in 50 mls @ 100 mls/hr IV Q24HR FOREIGN; Protocol Metronidazole (Flagyl) 500 mg PO Q8H FOREIGN; Protocol Ondansetron HCl (Zofran) 4 mg IV Q8H PRN PRN Reason: Nausea And Vomiting Phytonadione (Vitamin K *Oral Liquid*) 10 mg PO DAILY FOREIGN Sodium Chloride (Sodium Chloride Flush Syringe 10 Ml) 10 ml IV BID FOREIGN Sodium Chloride (Sodium Chloride Flush Syringe 10 Ml) 10 ml IV PRN PRN PRN Reason: LINE FLUSH Physical Examination Vital signs: Vital Signs Temp Pulse Resp BP Pulse Ox 98.1 F 78 18 102/56 100 01/01/19 20:58 01/01/19 20:58 01/01/19 20:58 01/01/19 20:58 01/01/19 20:58 Constitutional: no acute distress, alert, other (middle aged female, normocephalica nd atraumatic with normal resp effort at rest) Eyes: icteric ENT: oropharynx moist Neck: supple, no lymphadenopathy, no JVD Effort: normal Ascultation: Bilateral: clear Percussion: Bilateral: not dull Cardiovascular: regular rate and rhythm Gastrointestinal: hypoactive bowel sounds, soft, tender (mild epigastric), other (distended) Integumentary: other (icteric) Extremities: no cyanosis, pink and warm, pulses normal, no ischemia or petechiae Neurologic: normal mental status, non-focal exam, pupils equal and round, motor strength normal and Psychiatric: mood appropriate, affect normal Results - Laboratory Findings CBC and BMP: 01/04/19 06:19 01/05/19 10:55 PT/INR, D-dimer PT 20.8 Sec. (12.2-14.9) H 01/01/19 22:51 INR 1.83 (0.87-1.13) H 01/01/19 22:51 Abnormal lab findings: Abnormal Labs 01/01/19 01/01/19 01/01/19 21:36 21:36 22:23 RBC 3.47 L MCV 101 H MCH 36 H MCHC 35 H RDW 17.8 H Seg Neuts % (Manual) 76.0 H Lymphocytes % (Manual) 13.0 L Seg Neutrophils # Man 7.9 H PT INR APTT Sodium 129 L Potassium 2.3 L* D Chloride 88.6 L BUN 6 L Creatinine < 0.2 L Glucose 122 H Lactic Acid Calcium 7.4 L Magnesium Total Bilirubin 15.20 H Direct Bilirubin 11.2 H AST 87 H Alkaline Phosphatase 252 H Total Protein 5.8 L Albumin 2.3 L Urine WBC (Auto) 11.0 H U Epithel Cells (Auto) 39.0 H 01/01/19 01/01/19 01/01/19 22:51 22:51 22:51 RBC MCV MCH MCHC RDW Seg Neuts % (Manual) Lymphocytes % (Manual) Seg Neutrophils # Man PT 20.8 H INR 1.83 H APTT 47.2 H Sodium Potassium Chloride BUN Creatinine Glucose Lactic Acid 2.50 H* Calcium Magnesium 1.50 L Total Bilirubin Direct Bilirubin AST Alkaline Phosphatase Total Protein Albumin Urine WBC (Auto) U Epithel Cells (Auto) Assessment and Plan Hypotension Colitis/enteritis Alcoholic Cirrhosis with small amount of ascites hyponatremia Coagulopathy Depression Psoriasis Anxiety Portal hypertension with varices Continue levophed drip, wean fro MAP>60 Analgesia Discontinue IO in adilson next 24 hours Continue Rocephin, Flagyl, consult GI Start vitamin K, obtain records from [facility] DVT prophylaxis, potassium and magnesium repleted
[2019-01-02 05:12] LABS: Hematocrit 35.9 % (30.3-42.9); Hemoglobin 12.2 gm/dl (10.1-14.3); Mean Corpuscular HGB Conc 34 % (30-34); Mean Corpuscular Volume 101 fl (79-97); Platelet Count 205 K/mm3 (140-440); Red Blood Count 3.55 M/mm3 (3.65-5.03); Red Cell Distribution Width 17.3 % (13.2-15.2)
[2019-01-02 05:31] LABS: BUN/Creatinine Ratio 25; Blood Urea Nitrogen 5 mg/dL (7-17); Hemolysis Index 4
[2019-01-02] MEDS: FLAGYL PO SCH ×3 (06:04→22:44)
[2019-01-02] MEDS: ULTRAM PO PRN ×3 (06:09→18:02)
[2019-01-02] MEDS ORDERED: MAGNESIUM SULFATE 1 GM in NACL 0.9% 50 ML IV ONE (08:49)
--- NOTE | 2019-01-02 08:56 | Event Note ---
Date: 01/02/19 Continue supportive care Replace electrolyte counselling provided discussed with nursing staff lactate level improving
[2019-01-02] MEDS: MORPHINE IV PRN ×4 (09:27→22:46)
[2019-01-02] MEDS: ROCEPHIN/NS 1 GM/50 ML 1 GM/50 ML BAG IV SCH (09:50)
[2019-01-02] MEDS: SODIUM CHLORIDE FLUSH SYRINGE 10 ML IV SCH ×2 (11:11→22:00)
[2019-01-02 11:53] LABS: Band Neutrophils # (Manual) 0.3 K/mm3; Basophils % (Manual) 0 % (0.0-1.8); Eosinophils % (Manual) 0 % (0.0-4.3); Myelocytes # (Manual) 0.2 K/mm3; Total Cells Counted 100
[2019-01-02 11:54] LABS: Hypochromasia Few; Platelet Estimate Consistent w Auto; Target Cells Few
[2019-01-02] MEDS: VITAMIN K *ORAL LIQUID PO SCH ×2 (12:01→19:05)
--- NOTE | 2019-01-02 13:20 | Gastroenterology Consultation ---
History of Present Illness - Reason for Consult Consult date: 01/02/19 Cirrhosis, jaundice Requesting physician: CAROLINE PEREZ - History of Present Illness Ms. 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 She is noted to have significant hypokalemia. She is complaining of r ight flank pain and wants stronger pain medication as the pain meds she is getting are "not touching my pain and I would be better off at home than here" if her pain is not controlled. She reports the pain is constant, severe, worse with nothing and better with nothing she has gotten so far, no radiation, associated with jaundice. Meds updated, reviewed, and obtained Past History Past Medical History: anemia, arthritis, hypertension (portal), other (cirrhosis of the liver, psoriasis, anxiety and depression) Past Surgical History: appendectomy, Other (EGD with banding in 12/2016, and 08/2017) Social history: smoking (history of cigarette smoking of 10 years duration. She currently smokes few sticks per day), alcohol abuse (of 12 years and she continues to drink. Her last drink per pt was yesterday), other (she denies illicit drug use, and states she has 11 children) Family history: other (mother from ovarian cancer at 70 years old) Medications and Allergies Allergies Allergy/AdvReac Type Severity Reaction Status Date / Time No Known Allergies Allergy Verified 11/12/16 08:43 Home Medications Medication Instructions Recorded Confirmed Last Taken Type Ferrous Sulfate [Feosol 325 MG tab] 325 mg PO BID #60 tablet 09/04/17 Unknown Rx Folic Acid [Folvite] 1 mg PO QDAY #30 tablet 09/04/17 Unknown Rx Clobetasol 0.05% [Temovate] 1 applic TP BID #7 tube 12/28/18 Unknown Rx Nadolol [Corgard] 20 mg PO QDAY #30 tablet 12/28/18 Unknown Rx Rifaximin [Xifaxan] 550 mg PO BID #60 tablet 12/28/18 Unknown Rx Thiamine [Vitamin B-1] 100 mg PO QDAY #30 tablet 12/28/18 Unknown Rx oxyCODONE [roxiCODONE] 5 mg PO Q4H PRN #15 tablet 12/28/18 Unknown Rx prednisoLONE SOD PHOSPHAT [Orapred] 40 mg PO DAILY #5 oral.liqd 12/28/18 Unknown Rx Active Meds: Active Medications Norepinephrine (Levophed Drip 4 Mg/Ns 250 Ml) 4 mg in 250 mls @ 7.5 mls/hr IV TITR [facility]; Protocol Last Titration: 01/02/19 04:15 Dose: 6 mcg/min, 22.5 mls/hr Documented by: Ceftriaxone Sodium (Rocephin/Ns 1 Gm/50 Ml) 1 gm in 50 mls @ 100 mls/hr IV Q24HR [facility]; Protocol Last Admin: 01/02/19 09:50 Dose: 100 mls/hr Documented by: Metronidazole (Flagyl) 500 mg PO Q8H [facility]; Protocol Last Admin: 01/02/19 06:04 Dose: 500 mg Documented by: Morphine Sulfate (Morphine) 2 mg IV Q4H PRN PRN Reason: Pain, Moderate (4-6) Last Admin: 01/02/19 09:27 Dose: 2 mg Documented by: Ondansetron HCl (Zofran) 4 mg IV Q8H PRN PRN Reason: Nausea And Vomiting Phytonadione (Vitamin K *Oral Liquid*) 10 mg PO DAILY [facility] Last Admin: 01/02/19 12:01 Dose: Not Given Documented by: Sodium Chloride (Sodium Chloride Flush Syringe 10 Ml) 10 ml IV BID [facility] Last Admin: 01/02/19 11:11 Dose: 10 ml Documented by: Sodium Chloride (Sodium Chloride Flush Syringe 10 Ml) 10 ml IV PRN PRN PRN Reason: LINE FLUSH Tramadol HCl (Ultram) 50 mg PO Q6H PRN PRN Reason: Pain, Moderate (4-6) Last Admin: 01/02/19 12:07 Dose: 50 mg Documented by: Review of Systems - Review of Systems All systems: negative (as mentioned above in HPI) Exam - Constitutional Vital Signs: Temp Pulse Resp BP Pulse Ox 98.0 F 69 16 96/64 97 01/02/19 04:05 01/02/19 10:57 01/02/19 03:00 01/02/19 03:00 01/02/19 10:57 General appearance: no acute distress - EENT Eyes: scleral icterus - Neck Neck: supple - Respiratory Respiratory: bilateral: CTA - Cardiovascular Rhythm: regular - Gastrointestinal General gastrointestinal: Present: tender, distended, normal bowel sounds - Integumentary Integumentary: Present: dry, rash - Musculoskeletal Musculoskeletal: normal - Neurologic Neurological: alert and oriented x3 - Psychiatric Psychiatric: agitated - Labs CBC & Chem 7: 01/02/19 04:27 01/02/19 14:25 Lab Results: Laboratory Results - last 24 hr 01/01/19 01/01/19 01/01/19 21:36 21:36 22:23 WBC 10.4 RBC 3.47 L Hgb 12.3 Hct 35.2 MCV 101 H MCH 36 H MCHC 35 H RDW 17.8 H Plt Count 170 [place] % (Auto) Add Manual Diff Complete Total Counted 100 Seg Neuts % (Manual) 76.0 H Band Neutrophils % 1.0 Lymphocytes % (Manual) 13.0 L Reactive Lymphs % (Man) 0 Monocytes % (Manual) 6.0 Eosinophils % (Manual) 0 Basophils % (Manual) 1.0 Metamyelocytes % 3.0 Myelocytes % 0 Promyelocytes % 0 Blast Cells % 0 Nucleated RBC % Not Reportable Seg Neutrophils # Man 7.9 H Band Neutrophils # 0.1 Lymphocytes # (Manual) 1.4 Abs React Lymphs (Man) 0.0 Monocytes # (Manual) 0.6 Eosinophils # (Manual) 0.0 Basophils # (Manual) 0.1 Metamyelocytes # 0.3 Myelocytes # 0.0 Promyelocytes # 0.0 Blast Cells # 0.0 WBC Morphology Not Reportable Hypersegmented Neuts Not Reportable Hyposegmented Neuts Not Reportable Hypogranular Neuts Not Reportable Smudge Cells Not Reportable Toxic Granulation Not Reportable Toxic Vacuolation Not Reportable Dohle Bodies Not Reportable Pelger-Huet Anomaly Not Reportable [place] Rods Not Reportable Platelet Estimate Consistent w auto Clumped Platelets Not Reportable Plt Clumps, EDTA Not Reportable Large Platelets Not Reportable Giant Platelets Not Reportable Platelet Satelliting Not Reportable Plt Morphology Comment Not Reportable RBC Morphology Not Reportable Dimorphic RBCs Not Reportable Polychromasia Not Reportable Hypochromasia 1+ Poikilocytosis Few Anisocytosis 1+ Microcytosis Not Reportable Macrocytosis Not Reportable Spherocytes Not Reportable Pappenheimer Bodies Not Reportable Sickle Cells Not Reportable Target Cells 1+ Tear Drop Cells Not Reportable Ovalocytes Not Reportable Helmet Cells Not Reportable [place] Bodies Not Reportable [place] Rings Not Reportable Tam Cells Not Reportable Bite Cells Not Reportable Crenated Cell Not Reportable Elliptocytes Not Reportable Acanthocytes (Spur) Not Reportable Rouleaux Not Reportable Hemoglobin C Crystals Not Reportable Schistocytes Not Reportable Malaria parasites Not Reportable Rangel Bodies Not Reportable Hem Pathologist Commnt No PT INR APTT Sodium 129 L Potassium 2.3 L* D Chloride 88.6 L Carbon Dioxide 29 Anion Gap 14 BUN 6 L Creatinine < 0.2 L Estimated GFR > 60 BUN/Creatinine Ratio 30 Glucose 122 H POC Glucose Lactic Acid Calcium 7.4 L Magnesium Total Bilirubin 15.20 H Direct Bilirubin 11.2 H Indirect Bilirubin 4.0 AST 87 H ALT 45 Alkaline Phosphatase 252 H Total Creatine Kinase Total Protein 5.8 L Albumin 2.3 L Albumin/Globulin Ratio 0.7 Lipase 41 Urine Color Laura Urine Turbidity Cloudy Urine pH 6.0 Ur Specific [place] 1.023 Urine Protein 30 mg/dl Urine Glucose (UA) Neg Urine Ketones Neg Urine Blood Mod Urine Nitrite Neg Urine Bilirubin Mod Urine Ictotest Positive Urine Urobilinogen 4.0 Ur Leukocyte Esterase Neg Urine WBC (Auto) 11.0 H Urine RBC (Auto) 3.0 U Epithel Cells (Auto) 39.0 H Urine Bacteria (Auto) 1+ Urine Mucus 3+ 01/01/19 01/01/19 01/01/19 22:51 22:51 22:51 WBC RBC Hgb Hct MCV MCH MCHC RDW Plt Count [place] % (Auto) Add Manual Diff Total Counted Seg Neuts % (Manual) Band Neutrophils % Lymphocytes % (Manual) Reactive Lymphs % (Man) Monocytes % (Manual) Eosinophils % (Manual) Basophils % (Manual) Metamyelocytes % Myelocytes % Promyelocytes % Blast Cells % Nucleated RBC % Seg Neutrophils # Man Band Neutrophils # Lymphocytes # (Manual) Abs React Lymphs (Man) Monocytes # (Manual) Eosinophils # (Manual) Basophils # (Manual) Metamyelocytes # Myelocytes # Promyelocytes # Blast Cells # WBC Morphology Hypersegmented Neuts Hyposegmented Neuts Hypogranular Neuts Smudge Cells Toxic Granulation Toxic Vacuolation Dohle Bodies Pelger-Huet Anomaly [place] Rods Platelet Estimate Clumped Platelets Plt Clumps, EDTA Large Platelets Giant Platelets Platelet Satelliting Plt Morphology Comment RBC Morphology Dimorphic RBCs Polychromasia Hypochromasia Poikilocytosis Anisocytosis Microcytosis Macrocytosis Spherocytes Pappenheimer Bodies Sickle Cells Target Cells Tear Drop Cells Ovalocytes Helmet Cells [place] Bodies [place] Rings [place] Cells Bite Cells Crenated Cell Elliptocytes Acanthocytes (Spur) Rouleaux Hemoglobin C Crystals Schistocytes Malaria parasites Rangel Bodies Hem Pathologist Commnt PT 20.8 H INR 1.83 H APTT 47.2 H Sodium Potassium Chloride Carbon Dioxide Anion Gap BUN Creatinine Estimated GFR BUN/Creatinine Ratio Glucose POC Glucose Lactic Acid 2.50 H* Calcium Magnesium 1.50 L Total Bilirubin Direct Bilirubin Indirect Bilirubin AST ALT Alkaline Phosphatase Total Creatine Kinase 71 Total Protein Albumin Albumin/Globulin Ratio Lipase Urine Color Urine Turbidity Urine pH Ur Specific [place] Urine Protein Urine Glucose (UA) Urine Ketones Urine Blood Urine Nitrite Urine Bilirubin Urine Ictotest Urine Urobilinogen Ur Leukocyte Esterase Urine WBC (Auto) Urine RBC (Auto) U Epithel Cells (Auto) Urine Bacteria (Auto) Urine Mucus 01/01/19 01/02/19 01/02/19 23:53 04:27 04:27 WBC 17.4 H RBC 3.55 L Hgb 12.2 Hct 35.9 MCV 101 H MCH 34 H MCHC 34 RDW 17.3 H Plt Count 205 [place] % (Auto) Survey Research Analyst Add Manual Diff Complete Total Counted 100 Seg Neuts % (Manual) 78.0 H Band Neutrophils % 2.0 Lymphocytes % (Manual) 2.0 L Reactive Lymphs % (Man) 0 Monocytes % (Manual) 15.0 H Eosinophils % (Manual) 0 Basophils % (Manual) 0 Metamyelocytes % 2.0 Myelocytes % 1.0 Promyelocytes % 0 Blast Cells % 0 Nucleated RBC % Not Reportable Seg Neutrophils # Man 13.6 H Band Neutrophils # 0.3 Lymphocytes # (Manual) 0.3 L Abs React Lymphs (Man) 0.0 Monocytes # (Manual) 2.6 H Eosinophils # (Manual) 0.0 Basophils # (Manual) 0.0 Metamyelocytes # 0.3 Myelocytes # 0.2 Promyelocytes # 0.0 Blast Cells # 0.0 WBC Morphology Not Reportable Hypersegmented Neuts Not Reportable Hyposegmented Neuts Not Reportable Hypogranular Neuts Not Reportable Smudge Cells Not Reportable Toxic Granulation Not Reportable Toxic Vacuolation Not Reportable Dohle Bodies Not Reportable Pelger-Huet Anomaly Not Reportable [place] Rods Not Reportable Platelet Estimate Consistent w auto Clumped Platelets Not Reportable Plt Clumps, EDTA Not Reportable Large Platelets Not Reportable Giant Platelets Not Reportable Platelet Satelliting Not Reportable Plt Morphology Comment Not Reportable RBC Morphology Not Reportable Dimorphic RBCs Not Reportable Polychromasia Few Hypochromasia Few Poikilocytosis Not Reportable Anisocytosis Not Reportable Microcytosis Not Reportable Macrocytosis Not Reportable Spherocytes Not Reportable Pappenheimer Bodies Not Reportable Sickle Cells Not Reportable Target Cells Few Tear Drop Cells Not Reportable Ovalocytes Not Reportable Helmet Cells Not Reportable [place] Bodies Not Reportable [place] Rings Not Reportable [place] Cells Not Reportable Bite Cells Not Reportable Crenated Cell Not Reportable Elliptocytes Not Reportable Acanthocytes (Spur) Not Reportable Rouleaux Not Reportable Hemoglobin C Crystals Not Reportable Schistocytes Not Reportable Malaria parasites Not Reportable Rangel Bodies Not Reportable Hem Pathologist Commnt No PT INR APTT Sodium 131 L Potassium 2.7 L* Chloride 95.7 L Carbon Dioxide 25 Anion Gap 13 BUN 5 L Creatinine < 0.2 L Estimated GFR > 60 BUN/Creatinine Ratio 25 Glucose 133 H POC Glucose Lactic Acid 1.70 Calcium 7.0 L Magnesium Total Bilirubin Direct Bilirubin Indirect Bilirubin AST ALT Alkaline Phosphatase Total Creatine Kinase Total Protein Albumin Albumin/Globulin Ratio Lipase Urine Color Urine Turbidity Urine pH Ur Specific [place] Urine Protein Urine Glucose (UA) Urine Ketones Urine Blood Urine Nitrite Urine Bilirubin Urine Ictotest Urine Urobilinogen Ur Leukocyte Esterase Urine WBC (Auto) Urine RBC (Auto) U Epithel Cells (Auto) Urine Bacteria (Auto) Urine Mucus 01/02/19 08:50 WBC RBC Hgb Hct MCV MCH MCHC RDW Plt Count [place] % (Auto) Add Manual Diff Total Counted Seg Neuts % (Manual) Band Neutrophils % Lymphocytes % (Manual) Reactive Lymphs % (Man) Monocytes % (Manual) Eosinophils % (Manual) Basophils % (Manual) Metamyelocytes % Myelocytes % Promyelocytes % Blast Cells % Nucleated RBC % Seg Neutrophils # Man Band Neutrophils # Lymphocytes # (Manual) Abs React Lymphs (Man) Monocytes # (Manual) Eosinophils # (Manual) Basophils # (Manual) Metamyelocytes # Myelocytes # Promyelocytes # Blast Cells # WBC Morphology Hypersegmented Neuts Hyposegmented Neuts Hypogranular Neuts Smudge Cells Toxic Granulation Toxic Vacuolation Dohle Bodies Pelger-Huet Anomaly [place] Rods Platelet Estimate Clumped Platelets Plt Clumps, EDTA Large Platelets Giant Platelets Platelet Satelliting Plt Morphology Comment RBC Morphology Dimorphic RBCs Polychromasia Hypochromasia Poikilocytosis Anisocytosis Microcytosis Macrocytosis Spherocytes Pappenheimer Bodies Sickle Cells Target Cells Tear Drop Cells Ovalocytes Helmet Cells [place] Bodies [place] Rings [place] Cells Bite Cells Crenated Cell Elliptocytes Acanthocytes (Spur) Rouleaux Hemoglobin C Crystals Schistocytes Malaria parasites Rangel Bodies Hem Pathologist Commnt PT INR APTT Sodium Potassium Chloride Carbon Dioxide Anion Gap BUN Creatinine Estimated GFR BUN/Creatinine Ratio Glucose POC Glucose 126 H Lactic Acid Calcium Magnesium Total Bilirubin Direct Bilirubin Indirect Bilirubin AST ALT Alkaline Phosphatase Total Creatine Kinase Total Protein Albumin Albumin/Globulin Ratio Lipase Urine Color Urine Turbidity Urine pH Ur Specific [place] Urine Protein Urine Glucose (UA) Urine Ketones Urine Blood Urine Nitrite Urine Bilirubin Urine Ictotest Urine Urobilinogen Ur Leukocyte Esterase Urine WBC (Auto) Urine RBC (Auto) U Epithel Cells (Auto) Urine Bacteria (Auto) Urine Mucus Assessment and Plan Patient denies further EtOh since recently leaving the hospital. WBC is elevated and trending up, Bili also trending up (though repeat is slightly lower than admission). Will order paracentesis r/o SBP, patient already with blood cultures pending. Continue supportive care, avoid opiates and other hepatotoxic meds. Current MELD (as of 01/01, last time full simultaneous labs obtained) is 27, which carries with it overall poor prognosis. Will continue EtOh cessation a dvice and supportive care - Patient Problems (1) Elevated LFTs Onset Date: 04/29/14 Current Visit: Yes Status: Acute (2) History of alcohol abuse Current Visit: Yes Status: Acute (3) Hypokalemia Current Visit: Yes Status: Acute (4) Cirrhosis of liver Current Visit: No Status: Acute Qualifiers: Hepatic cirrhosis type: alcoholic cirrhosis Ascites presence: with ascites Qualified Code(s): K70.31 - Alcoholic cirrhosis of liver with ascites (5) Alcoholic cirrhosis of liver with ascites Current Visit: No Status: Chronic
[2019-01-02 15:11] LABS: Alanine Aminotransferase 41 units/L (7-56); Albumin 2.1 g/dL (3.9-5); BUN/Creatinine Ratio 20; Blood Urea Nitrogen 4 mg/dL (7-17); Calcium 7.2 mg/dL (8.4-10.2); Hemolysis Index 21
[2019-01-03 05:29] LABS: Hemoglobin 11.3 gm/dl (10.1-14.3); Mean Corpuscular HGB Conc 34 % (30-34); Mean Corpuscular Volume 102 fl (79-97); Platelet Count 145 K/mm3 (140-440); Red Blood Count 3.23 M/mm3 (3.65-5.03); Red Cell Distribution Width 17.8 % (13.2-15.2)
[2019-01-03] MEDS: FLAGYL PO SCH ×3 (05:38→21:23)
[2019-01-03] MEDS: MORPHINE IV PRN ×2 (05:38→11:55)
[2019-01-03] MEDS: ULTRAM PO PRN ×3 (05:50→21:23)
[2019-01-03 05:54] LABS: Alanine Aminotransferase 38 units/L (7-56); Albumin 1.8 g/dL (3.9-5); BUN/Creatinine Ratio 20; Blood Urea Nitrogen 4 mg/dL (7-17); Calcium 7.4 mg/dL (8.4-10.2); Hemolysis Index 8
[2019-01-03] MEDS ORDERED: KCL 20MEQ/100ML 20 MEQ/100 ML BAG IV SCH (07:00)
[2019-01-03] MEDS: K-DUR PO SCH ×2 (08:16→13:08)
[2019-01-03] MEDS: ROCEPHIN/NS 1 GM/50 ML 1 GM/50 ML BAG IV SCH (09:54)
[2019-01-03] MEDS: VITAMIN K *ORAL LIQUID PO SCH (09:55)
[2019-01-03] MEDS: SODIUM CHLORIDE FLUSH SYRINGE 10 ML IV SCH ×2 (09:55→21:23)
[2019-01-03] MEDS ORDERED: KCL 10MEQ/100ML 10 MEQ/100 ML BAG IV SCH (11:00)
--- NOTE | 2019-01-03 11:21 | Progress Note ---
Assessment and Plan Hypotension Colitis/enteritis Alcoholic Cirrhosis with small amount of ascites hyponatremia Coagulopathy Depression Psoriasis Anxiety Portal hypertension with varices - for paracentesis today - aspiration precautions - continue empiric flagyl and rocephin - GI evaluation ongoing - transfer to medical floor [place] Subjective Date of service: 01/03/19 Principal diagnosis: Hypotension; Colitis/enteritis; Alcoholic Cirrhosis; Coagulopathy Interval history: Patient is seen today for: Hypotension; Colitis/enteritis; Alcoholic Cirrhosis with small amount of ascites; hyponatremia; Coagulopathy; Psoriasis; Portal hypertension with varices Seen and examined at bedside; 24hour events reviewed; nursing and respiratory care staff consulted; no adverse overnight events reported to me; doing better; now off levophed; denies acute chest pains or palpitations; NO N/V/F/C; still complains of generalized aches Objective Vital Signs - 12hr 01/03/19 01/03/19 01/03/19 00:00 04:00 10:00 Temperature 98.8 F 98.7 F Pulse Rate [ 78 From Monitor] Respiratory 15 Rate O2 Sat by Pulse 94 Oximetry Constitutional: no acute distress, alert, other (middle aged female, normocephalica nd atraumatic with normal resp effort at rest) Eyes: icteric ENT: oropharynx moist Neck: supple, no lymphadenopathy, no JVD Effort: normal Ascultation: Bilateral: clear Percussion: Bilateral: not dull Cardiovascular: regular rate and rhythm Gastrointestinal: hypoactive bowel sounds, soft, tender (mild epigastric), other (distended) Integumentary: other (icteric) Extremities: no cyanosis, pink and warm, pulses normal, no ischemia or petechiae Neurologic: normal mental status, non-focal exam, pupils equal and round, motor strength normal and Psychiatric: mood appropriate, affect normal CBC and BMP: 01/04/19 06:19 01/05/19 10:55 ABG, PT/INR, D-dimer: PT/INR, D-dimer PT 20.8 Sec. (12.2-14.9) H 01/01/19 22:51 INR 1.83 (0.87-1.13) H 01/01/19 22:51 Abnormal lab findings: Abnormal Labs 01/01/19 01/01/19 01/01/19 21:36 21:36 22:23 WBC RBC 3.47 L MCV 101 H MCH 36 H MCHC 35 H RDW 17.8 H Seg Neuts % (Manual) 76.0 H Lymphocytes % (Manual) 13.0 L Monocytes % (Manual) Seg Neutrophils # Man 7.9 H Lymphocytes # (Manual) Monocytes # (Manual) PT INR APTT Sodium 129 L Potassium 2.3 L* D Chloride 88.6 L BUN 6 L Creatinine < 0.2 L Glucose 122 H POC Glucose Lactic Acid Calcium 7.4 L Magnesium Total Bilirubin 15.20 H Direct Bilirubin 11.2 H AST 87 H Alkaline Phosphatase 252 H Total Protein 5.8 L Albumin 2.3 L Urine WBC (Auto) 11.0 H U Epithel Cells (Auto) 39.0 H 01/01/19 01/01/19 01/01/19 22:51 22:51 22:51 WBC RBC MCV MCH MCHC RDW Seg Neuts % (Manual) Lymphocytes % (Manual) Monocytes % (Manual) Seg Neutrophils # Man Lymphocytes # (Manual) Monocytes # (Manual) PT 20.8 H INR 1.83 H APTT 47.2 H Sodium Potassium Chloride BUN Creatinine Glucose POC Glucose Lactic Acid 2.50 H* Calcium Magnesium 1.50 L Total Bilirubin Direct Bilirubin AST Alkaline Phosphatase Total Protein Albumin Urine WBC (Auto) U Epithel Cells (Auto) 01/02/19 01/02/19 01/02/19 04:27 04:27 08:50 WBC 17.4 H RBC 3.55 L MCV 101 H MCH 34 H MCHC RDW 17.3 H Seg Neuts % (Manual) 78.0 H Lymphocytes % (Manual) 2.0 L Monocytes % (Manual) 15.0 H Seg Neutrophils # Man 13.6 H Lymphocytes # (Manual) 0.3 L Monocytes # (Manual) 2.6 H PT INR APTT Sodium 131 L Potassium 2.7 L* Chloride 95.7 L BUN 5 L Creatinine < 0.2 L Glucose 133 H POC Glucose 126 H Lactic Acid Calcium 7.0 L Magnesium Total Bilirubin Direct Bilirubin AST Alkaline Phosphatase Total Protein Albumin Urine WBC (Auto) U Epithel Cells (Auto) 01/02/19 01/03/19 01/03/19 14:25 04:20 04:20 WBC RBC 3.23 L MCV 102 H MCH 35 H MCHC RDW 17.8 H Seg Neuts % (Manual) Lymphocytes % (Manual) Monocytes % (Manual) Seg Neutrophils # Man Lymphocytes # (Manual) Monocytes # (Manual) PT INR APTT Sodium 131 L 132 L Potassium 3.5 L D 3.2 L Chloride BUN 4 L 4 L Creatinine < 0.2 L < 0.2 L Glucose 119 H 105 H POC Glucose Lactic Acid Calcium 7.2 L 7.4 L Magnesium Total Bilirubin 13.70 H 13.10 H Direct Bilirubin AST 84 H 79 H Alkaline Phosphatase 248 H 223 H Total Protein 5.7 L 5.5 L Albumin 2.1 L 1.8 L Urine WBC (Auto) U Epithel Cells (Auto) Chest x-ray: pending Allied health notes reviewed: nursing
[2019-01-03] MEDS ORDERED: MAGNESIUM SULFATE 1 GM in NACL 0.9% 50 ML IV ONE (12:00)
--- NOTE | 2019-01-03 14:23 | Gastroenterology Progress Note ---
<PATRICK MEDRANO - Last Filed: 01/03/19 14:24> Assessment and Plan 1.alcoholic cirrhosis with ascites -afebrile -WBC trended down to 9.1 -H/H WNL -INR 1.83 -LFTs-stable -etiology-cirrhosis 2/2 ETOH -clinically, patient is stable. No active signs of bleeding or encephalopathy upon exam. -ascites-paracentesis pending for today r/o SBP- LVP PRN -MELD as of 01/01 27 which carries with it overall poor prognosis- currently not a liver transplant candidate due to non-compliance and alcohol consumption, however denies any further ETOH since prior d/c -low sodium diet -avoid opiates and other hepatotoxic meds -continue to trend labs and supportive care -if no evidence of SBP and labs remain stable in am, patient okay to be d/c per GI standpoint with f/u in clinic for further management Subjective Date of service: 01/03/19 Principal diagnosis: cirrhosis Interval history: No acute distress. Objective - Constitutional Vitals: Temp Pulse Resp BP Pulse Ox 98.7 F 79 19 103/66 96 01/03/19 04:00 01/03/19 13:00 01/03/19 13:00 01/03/19 13:00 01/03/19 13:00 General appearance: no acute distress - Respiratory Respiratory effort: normal - Cardiovascular Rhythm: regular - Gastrointestinal General gastrointestinal: Present: soft, tender (slight TTP), distended (mildly (ascites)), normal bowel sounds - Neurologic Neurological: alert and oriented x3 - Labs CBC & Chem 7: 01/03/19 04:20 01/03/19 04:20 Labs: Laboratory Results - last 24 hr 01/02/19 01/03/19 01/03/19 14:25 04:20 04:20 WBC 9.1 RBC 3.23 L Hgb 11.3 Hct 33.0 MCV 102 H MCH 35 H MCHC 34 RDW 17.8 H Plt Count 145 Sodium 131 L 132 L Potassium 3.5 L D 3.2 L Chloride 98.1 98.7 Carbon Dioxide 23 23 Anion Gap 13 14 BUN 4 L 4 L Creatinine < 0.2 L < 0.2 L Estimated GFR > 60 > 60 BUN/Creatinine Ratio 20 20 Glucose 119 H 105 H Calcium 7.2 L 7.4 L Magnesium Total Bilirubin 13.70 H 13.10 H AST 84 H 79 H ALT 41 38 Alkaline Phosphatase 248 H 223 H Total Protein 5.7 L 5.5 L Albumin 2.1 L 1.8 L Albumin/Globulin Ratio 0.6 0.5 01/03/19 04:20 WBC RBC Hgb Hct MCV MCH MCHC RDW Plt Count Sodium Potassium Chloride Carbon Dioxide Anion Gap BUN Creatinine Estimated GFR BUN/Creatinine Ratio Glucose Calcium Magnesium 1.90 Total Bilirubin AST ALT Alkaline Phosphatase Total Protein Albumin Albumin/Globulin Ratio <SELENE SALAS - Last Filed: 01/03/19 23:05> Assessment and Plan Patient seen and examined. I have reviewed the advanced practitioner's ev aluation, assessment, and plan, and agree with them. 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 - Patient Problems (1) Elevated LFTs Onset Date: 04/29/14 Current Visit: Yes Status: Acute (2) History of alcohol abuse Current Visit: Yes Status: Acute (3) Hypokalemia Current Visit: Yes Status: Acute (4) Cirrhosis of liver Current Visit: No Status: Acute Qualifiers: Hepatic cirrhosis type: alcoholic cirrhosis Ascites presence: with ascites Qualified Code(s): K70.31 - Alcoholic cirrhosis of liver with ascites (5) Alcoholic cirrhosis of liver with ascites Current Visit: No Status: Chronic Objective - Constitutional Vitals: Temp Pulse Resp BP Pulse Ox 97.8 F 74 14 109/71 98 01/03/19 16:27 01/03/19 16:27 01/03/19 16:27 01/03/19 16:27 01/03/19 21:02 - Labs CBC & Chem 7: 01/03/19 04:20 01/03/19 04:20 Labs: Laboratory Results - last 24 hr 01/03/19 01/03/19 01/03/19 04:20 04:20 04:20 WBC 9.1 RBC 3.23 L Hgb 11.3 Hct 33.0 MCV 102 H MCH 35 H MCHC 34 RDW 17.8 H Plt Count 145 Sodium 132 L Potassium 3.2 L Chloride 98.7 Carbon Dioxide 23 Anion Gap 14 BUN 4 L Creatinine < 0.2 L Estimated GFR > 60 BUN/Creatinine Ratio 20 Glucose 105 H Calcium 7.4 L Magnesium 1.90 Total Bilirubin 13.10 H AST 79 H ALT 38 Alkaline Phosphatase 223 H Total Protein 5.5 L Albumin 1.8 L Albumin/Globulin Ratio 0.5 Fluid Type Fluid Color Fluid Appearance Fluid WBC Fluid RBC Fluid Seg Neutrophils Fluid Lymphocytes Fluid Reactive Lymphs Fluid Monocytes Fluid Eosinophils Fluid Basophils 01/03/19 Unknown WBC RBC Hgb Hct MCV MCH MCHC RDW Plt Count Sodium Potassium Chloride Carbon Dioxide Anion Gap BUN Creatinine Estimated GFR BUN/Creatinine Ratio Glucose Calcium Magnesium Total Bilirubin AST ALT Alkaline Phosphatase Total Protein Albumin Albumin/Globulin Ratio Fluid Type Ascitic Fluid Color Yellow Fluid Appearance Turbid Fluid WBC 107 Fluid RBC 72 Fluid Seg Neutrophils 29.0 Fluid Lymphocytes 19.0 Fluid Reactive Lymphs 0 Fluid Monocytes 50.0 Fluid Eosinophils 2.0 Fluid Basophils 0
--- NOTE | 2019-01-03 14:56 | Procedure Note ---
Date of procedure: 01/03/19 Pre-op diagnosis: ascites Post-op diagnosis: same Procedure: US paracentesis Findings: large ascites Anesthesia: local Surgeon: KAREEM MARX Estimated blood loss: none Pathology: list (120cc) Specimen disposition: to lab Condition: stable Disposition: floor
--- NOTE | 2019-01-03 15:02 | Progress Note ---
Assessment and Plan Assessment and plan: 48 year old woman history of alcohol cirrhosis, depression, anxiety, psoriasis, portal hypertension, psoriasis, hard of hearing was admitted to the hospital on December 25, she left AGAINST MEDICAL ADVICE on the . Patient was treated for colitis, enteritis among others. After leaving here, she was taken to a hospital where she stayed for one day. She does not know what medication she was discharged on. Patient stated that her abdomen is More distended, she has lower extremity edema. Still complaining of left lower quadrant pain. Patient was started on Rocephin, Flagyl, she became hypotensive in the ER and was started on Levophed drip and admitted to the ICU, subsequently transfered to medsur unit following liberation from the pressors alcoholic cirrhosis with ascites Decompensated Cirrhosis with MELD SCORE OF 27 on 01/01 Vasogenic shock now resolved Colitis/enteritis hyponatremia Hypokalemia Severe protein calorie Malnutrition Coagulopathy Depression Psoriasis Anxiety Portal hypertension with varices PLAN Patient is status POST ultrasound-guided paracentesis Await fluid analysis Continue abx as ordered GI input is noted, patient with overal poor prognosis and is not currently not a liver transplant candidate due to non-compliance and alcohol consumption, however denies any further ETOH since prior d/c Continue to avoid avoid opiates and other hepatotoxic meds continue to trend labs and supportive care Per GI-if no evidence of SBP and labs remain stable in am, patient okay to be d/c per GI standpoint with f/u in clinic for further management Must be complaint with follow up. Pt verbalized understanding. dvt/gi PROPHY History Interval history: Patient seen and examined this morning complains of pain especially in the knee with the I/O was placed. Otherwise no new complaints. Currently off vasopressors since 12 midnight this morning. Hospitalist Physical - Physical exam Narrative exam: VITAL SIGNS: Reviewed. GENERAL: The patient appeared well nourished and normally developed, chronically ill appearing, Vital signs as documented. HEAD: No signs of head trauma. EYES: Pupils are equal. Extraocular motions intact. EARS: Hearing grossly intact. MOUTH: Oropharynx is normal. NECK: No adenopathy, no JVD. CHEST: Chest with diminshed breath sounds bilaterally. No wheezes, rales, or rhonchi. CARDIAC: Regular rate and rhythm. S1 and S2, without murmurs, gallops, or rubs. VASCULAR: No Edema. Peripheral pulses normal and equal in all extremities. ABDOMEN: Soft, distended, non tender, positive fluid shift. No rebound or guarding, and no masses palpated. Bowel Sounds normal. MUSCULOSKELETAL: Good range of motion of all major joints. Extremities without clubbing, cyanosis or edema. NEUROLOGIC EXAM: Alert and oriented x 3 No focal sensory or strength deficits. Speech normal. Follows commands. PSYCHIATRIC: Mood anxious. SKIN: No rash or lesions. - Constitutional Vitals: Temp Pulse Resp BP Pulse Ox 98.7 F 79 19 103/66 96 01/03/19 04:00 01/03/19 13:00 01/03/19 13:00 01/03/19 13:00 01/03/19 13:00 Results - Labs CBC & Chem 7: 01/03/19 04:20 01/03/19 04:20 Labs: Laboratory Last Values WBC 9.1 K/mm3 (4.5-11.0) 01/03/19 04:20 RBC 3.23 M/mm3 (3.65-5.03) L 01/03/19 04:20 Hgb 11.3 gm/dl (10.1-14.3) 01/03/19 04:20 Hct 33.0 % (30.3-42.9) 01/03/19 04:20 MCV 102 fl (79-97) H 01/03/19 04:20 MCH 35 pg (28-32) H 01/03/19 04:20 MCHC 34 % (30-34) 01/03/19 04:20 RDW 17.8 % (13.2-15.2) H 01/03/19 04:20 Plt Count 145 K/mm3 (140-440) 01/03/19 04:20 [place] % (Auto) First Line Supervisor 01/02/19 04:27 Add Manual Diff Complete 01/02/19 04:27 Total Counted 100 01/02/19 04:27 Seg Neuts % (Manual) 78.0 % (40.0-70.0) H 01/02/19 04:27 2.0 % 01/02/19 04:27 2.0 % (13.4-35.0) L 01/02/19 04:27 Reactive Lymphs % (Man) 0 % 01/02/19 04:27 15.0 % (0.0-7.3) H 01/02/19 04:27 0 % (0.0-4.3) 01/02/19 04:27 0 % (0.0-1.8) 01/02/19 04:27 2.0 % 01/02/19 04:27 1.0 % 01/02/19 04:27 0 % 01/02/19 04:27 0 % 01/02/19 04:27 Nucleated RBC % Not Reportable 01/02/19 04:27 Seg Neutrophils # Man 13.6 K/mm3 (1.8-7.7) H 01/02/19 04:27 Band Neutrophils # 0.3 K/mm3 01/02/19 04:27 0.3 K/mm3 (1.2-5.4) L 01/02/19 04:27 Abs React Lymphs (Man) 0.0 K/mm3 01/02/19 04:27 2.6 K/mm3 (0.0-0.8) H 01/02/19 04:27 0.0 K/mm3 (0.0-0.4) 01/02/19 04:27 0.0 K/mm3 (0.0-0.1) 01/02/19 04:27 0.3 K/mm3 01/02/19 04:27 0.2 K/mm3 01/02/19 04:27 0.0 K/mm3 01/02/19 04:27 Blast Cells # 0.0 K/mm3 01/02/19 04:27 WBC Morphology Not Reportable 01/02/19 04:27 Hypersegmented Neuts Not Reportable 01/02/19 04:27 Hyposegmented Neuts Not Reportable 01/02/19 04:27 Hypogranular Neuts Not Reportable 01/02/19 04:27 Not Reportable 01/02/19 04:27 Not Reportable 01/02/19 04:27 Not Reportable 01/02/19 04:27 Not Reportable 01/02/19 04:27 Not Reportable 01/02/19 04:27 Not Reportable 01/02/19 04:27 Consistent w auto 01/02/19 04:27 Not Reportable 01/02/19 04:27 Plt Clumps, EDTA Not Reportable 01/02/19 04:27 Not Reportable 01/02/19 04:27 Not Reportable 01/02/19 04:27 Not Reportable 01/02/19 04:27 Plt Morphology Comment Not Reportable 01/02/19 04:27 RBC Morphology Not Reportable 01/02/19 04:27 Dimorphic RBCs Not Reportable 01/02/19 04:27 Few 01/02/19 04:27 Few 01/02/19 04:27 Not Reportable 01/02/19 04:27 Not Reportable 01/02/19 04:27 Not Reportable 01/02/19 04:27 Not Reportable 01/02/19 04:27 Not Reportable 01/02/19 04:27 Not Reportable 01/02/19 04:27 Not Reportable 01/02/19 04:27 Few 01/02/19 04:27 Not Reportable 01/02/19 04:27 Not Reportable 01/02/19 04:27 Not Reportable 01/02/19 04:27 Not Reportable 01/02/19 04:27 Not Reportable 01/02/19 04:27 Not Reportable 01/02/19 04:27 Not Reportable 01/02/19 04:27 Not Reportable 01/02/19 04:27 Not Reportable 01/02/19 04:27 Acanthocytes (Spur) Not Reportable 01/02/19 04:27 Rouleaux Not Reportable 01/02/19 04:27 Not Reportable 01/02/19 04:27 Not Reportable 01/02/19 04:27 Not Reportable 01/02/19 04:27 Not Reportable 01/02/19 04:27 Hem Pathologist Commnt No 01/02/19 04:27 PT 20.8 Sec. (12.2-14.9) H 01/01/19 22:51 INR 1.83 (0.87-1.13) H 01/01/19 22:51 APTT 47.2 Sec. (24.2-36.6) H 01/01/19 22:51 Sodium 132 mmol/L (137-145) L 01/03/19 04:20 Potassium 3.2 mmol/L (3.6-5.0) L 01/03/19 04:20 Chloride 98.7 mmol/L (98-107) 01/03/19 04:20 Carbon Dioxide 23 mmol/L (22-30) 01/03/19 04:20 14 mmol/L 01/03/19 04:20 BUN 4 mg/dL (7-17) L 01/03/19 04:20 < 0.2 mg/dL (0.7-1.2) L 01/03/19 04:20 Estimated GFR > 60 ml/min 01/03/19 04:20 20 % 01/03/19 04:20 Glucose 105 mg/dL (65-100) H 01/03/19 04:20 POC Glucose 126 (70-105) H 01/02/19 08:50 Lactic Acid 1.70 mmol/L (0.7-2.0) 01/01/19 23:53 Calcium 7.4 mg/dL (8.4-10.2) L 01/03/19 04:20 Magnesium 1.90 mg/dL (1.7-2.3) 01/03/19 04:20 13.10 mg/dL (0.1-1.2) H 01/03/19 04:20 11.2 mg/dL (0-0.2) H 01/01/19 21:36 4.0 mg/dL 01/01/19 21:36 AST 79 units/L (5-40) H 01/03/19 04:20 ALT 38 units/L (7-56) 01/03/19 04:20 223 units/L (35-129) H 01/03/19 04:20 71 units/L (30-135) 01/01/19 22:51 5.5 g/dL (6.3-8.2) L 01/03/19 04:20 1.8 g/dL (3.9-5) L 01/03/19 04:20 0.5 % 01/03/19 04:20 41 units/L (13-60) 01/01/19 21:36 Laura (Yellow) 01/01/19 22:23 Cloudy (Clear) 01/01/19 22:23 6.0 (5.0-7.0) 01/01/19 22:23 Ur Specific [place] 1.023 (1.003-1.030) 01/01/19 22:23 30 mg/dl mg/dL (Negative) 01/01/19 22:23 Neg mg/dL (Negative) 01/01/19 22:23 Neg mg/dL (Negative) 01/01/19 22:23 Mod (Negative) 01/01/19 22:23 Neg (Negative) 01/01/19 22:23 Mod (Negative) 01/01/19 22:23 Positive (Negative) 01/01/19 22:23 4.0 mg/dL (<2.0) 01/01/19 22:23 Ur Leukocyte Esterase Neg (Negative) 01/01/19 22:23 11.0 /HPF (0.0-6.0) H 01/01/19 22:23 3.0 /HPF (0.0-6.0) 01/01/19 22:23 U Epithel Cells (Auto) 39.0 /HPF (0-13.0) H 01/01/19 22:23 1+ /HPF (Negative) 01/01/19 22:23 3+ /HPF 01/01/19 22:23 Active Medications - Current Medications Current Medications: Generic Name Dose Route Start Last Admin Trade Name Freq PRN Reason Stop Dose Admin Ceftriaxone Sodium 1 gm in 50 mls @ 100 mls/hr 01/02/19 10:00 01/03/19 09:54 Rocephin/Ns 1 Gm/50 Ml IV 100 mls/hr Q24HR FOREIGN Administration Protocol Metronidazole 500 mg 01/02/19 06:00 01/03/19 14:11 Flagyl PO 500 mg Q8H FOREIGN Administration Protocol Morphine Sulfate 2 mg 01/02/19 08:55 01/03/19 11:55 Morphine IV 2 mg Q4H PRN Administration Pain, Moderate (4-6) Ondansetron HCl 4 mg 01/02/19 01:52 Zofran IV Q8H PRN Nausea And Vomiting Phytonadione 10 mg 01/02/19 10:00 01/03/19 09:55 Vitamin K *Oral Liquid* PO 10 mg DAILY FOREIGN Administration Sodium Chloride 10 ml 01/02/19 10:00 01/03/19 09:55 Sodium Chloride Flush Syringe 10 Ml IV 10 ml BID FOREIGN Administration Sodium Chloride 10 ml 01/02/19 01:52 Sodium Chloride Flush Syringe 10 Ml IV PRN PRN LINE FLUSH Tramadol HCl 50 mg 01/02/19 04:18 01/03/19 14:01 Ultram PO 50 mg Q6H PRN Administration Pain, Moderate (4-6)
[2019-01-03 18:24] LABS: Total Cells Counted 100 /mm3
[2019-01-04] MEDS: ULTRAM PO PRN (04:15)
[2019-01-04] MEDS: FLAGYL PO SCH ×3 (05:47→21:52)
[2019-01-04] MEDS: MORPHINE IV PRN ×4 (05:51→21:52)
[2019-01-04 06:37] LABS: Hematocrit 33.5 % (30.3-42.9); Hemoglobin 11.3 gm/dl (10.1-14.3); Mean Corpuscular HGB Conc 34 % (30-34); Mean Corpuscular Volume 103 fl (79-97); Platelet Count 143 K/mm3 (140-440); Red Blood Count 3.26 M/mm3 (3.65-5.03); Red Cell Distribution Width 17.6 % (13.2-15.2)
[2019-01-04 06:52] LABS: Alanine Aminotransferase 35 units/L (7-56); Albumin 1.9 g/dL (3.9-5); BUN/Creatinine Ratio 20; Blood Urea Nitrogen 4 mg/dL (7-17); Calcium 7.9 mg/dL (8.4-10.2); Hemolysis Index 58; INR 1.99 (0.87-1.13)
--- NOTE | 2019-01-04 07:40 | Ultrasound Report ---
ULTRASOUND PARACENTESIS HISTORY: Ascites. DESCRIPTION OF PROCEDURE: A time out was performed. Informed consent was obtained. Sterile technique was utilized. Using ultrasound guidance, a 5 Hebrew centesis needle was advanced into the peritoneal space. There was spontaneous return of blood-tinged fluid. 3.2 L of fluid was drained. 120 cc of fluid was sent to laboratory for analysis. No complications. IMPRESSION: Successful ultrasound-guided paracentesis.
[2019-01-04] MEDS: ROCEPHIN/NS 1 GM/50 ML 1 GM/50 ML BAG IV SCH (09:25)
[2019-01-04] MEDS: SODIUM CHLORIDE FLUSH SYRINGE 10 ML IV SCH ×2 (09:25→21:54)
--- NOTE | 2019-01-04 10:03 | Progress Note ---
Assessment and Plan Patient weak. Patient is on room air. O2 Sat 94%. No acute respiratory distress. Patient has paracentisis yesterday. The paracentisis fluid reported WBC count 107 and RBC 72. The rest of the results are pending. - Patient Problems (1) History of alcohol abuse Current Visit: Yes Status: Acute Plan to address problem: Management as per primary care. (2) Hypokalemia Current Visit: Yes Status: Acute Plan to address problem: K+ corrected. Today Potassium is 4.4 (3) Hyponatremia Current Visit: Yes Status: Acute Plan to address problem: Sodium is slowly improving. Today sodium 132 (4) Hypotension Current Visit: Yes Status: Acute Plan to address problem: Blood pressure is improved. Today blood pressure 102/71 (5) Acute GI hemorrhage Current Visit: No Status: Acute Plan to address problem: Management as per entomology (6) Ascites Current Visit: No Status: Acute Qualifiers: Ascites type: due to alcoholic cirrhosis Qualified Code(s): K70.31 - Alcoholic cirrhosis of liver with ascites Plan to address problem: Patient is on undergone paracenthesis. The results are pending. (7) Liver failure without hepatic coma Current Visit: No Status: Acute Plan to address problem: Management as per primary care and gastroentology. (8) Thrombocytopenia Current Visit: No Status: Acute Plan to address problem: Today Platelet count is 143,000 Subjective Date of service: 01/04/19 Principal diagnosis: cirrhosis Interval history: Patient weak. Patient is on room air. O2 Sat 94%. No acute respiratory distress. Patient has paracentisis yesterday. The paracentisis fluid reported WBC count 107 and RBC 72. The rest of the results are pending. Objective Vital Signs - 12hr 01/03/19 01/04/19 23:56 05:55 Temperature 99.0 F 97.7 F Pulse Rate 82 81 Respiratory 18 16 Rate Blood Pressure 101/62 97/64 O2 Sat by Pulse 96 96 Oximetry Constitutional: no acute distress, alert, other (middle aged female, normocephalica nd atraumatic with normal resp effort at rest) Eyes: icteric ENT: oropharynx moist Neck: supple, no lymphadenopathy, no JVD Effort: normal Ascultation: Bilateral: diminished breath sounds (at bases) Percussion: Bilateral: not dull Cardiovascular: regular rate and rhythm Gastrointestinal: hypoactive bowel sounds, soft, tender (mild epigastric), other (distended) Integumentary: other (icteric) Extremities: no cyanosis, pink and warm, pulses normal, no ischemia or petechiae Neurologic: normal mental status, non-focal exam, pupils equal and round, motor strength normal and Psychiatric: mood appropriate, affect normal CBC and BMP: 01/04/19 06:19 01/04/19 06:19 ABG, PT/INR, D-dimer: PT/INR, D-dimer PT 22.2 Sec. (12.2-14.9) H 01/04/19 06:19 INR 1.99 (0.87-1.13) H 01/04/19 06:19 Abnormal lab findings: Abnormal Labs 01/01/19 01/01/19 01/01/19 21:36 21:36 22:23 WBC RBC 3.47 L MCV 101 H MCH 36 H MCHC 35 H RDW 17.8 H Seg Neuts % (Manual) 76.0 H Lymphocytes % (Manual) 13.0 L Monocytes % (Manual) Seg Neutrophils # Man 7.9 H Lymphocytes # (Manual) Monocytes # (Manual) PT INR APTT Sodium 129 L Potassium 2.3 L* D Chloride 88.6 L BUN 6 L Creatinine < 0.2 L Glucose 122 H POC Glucose Lactic Acid Calcium 7.4 L Magnesium Total Bilirubin 15.20 H Direct Bilirubin 11.2 H AST 87 H Alkaline Phosphatase 252 H Total Protein 5.8 L Albumin 2.3 L Urine WBC (Auto) 11.0 H U Epithel Cells (Auto) 39.0 H 01/01/19 01/01/19 01/01/19 22:51 22:51 22:51 WBC RBC MCV MCH MCHC RDW Seg Neuts % (Manual) Lymphocytes % (Manual) Monocytes % (Manual) Seg Neutrophils # Man Lymphocytes # (Manual) Monocytes # (Manual) PT 20.8 H INR 1.83 H APTT 47.2 H Sodium Potassium Chloride BUN Creatinine Glucose POC Glucose Lactic Acid 2.50 H* Calcium Magnesium 1.50 L Total Bilirubin Direct Bilirubin AST Alkaline Phosphatase Total Protein Albumin Urine WBC (Auto) U Epithel Cells (Auto) 01/02/19 01/02/19 01/02/19 04:27 04:27 08:50 WBC 17.4 H RBC 3.55 L MCV 101 H MCH 34 H MCHC RDW 17.3 H Seg Neuts % (Manual) 78.0 H Lymphocytes % (Manual) 2.0 L Monocytes % (Manual) 15.0 H Seg Neutrophils # Man 13.6 H Lymphocytes # (Manual) 0.3 L Monocytes # (Manual) 2.6 H PT INR APTT Sodium 131 L Potassium 2.7 L* Chloride 95.7 L BUN 5 L Creatinine < 0.2 L Glucose 133 H POC Glucose 126 H Lactic Acid Calcium 7.0 L Magnesium Total Bilirubin Direct Bilirubin AST Alkaline Phosphatase Total Protein Albumin Urine WBC (Auto) U Epithel Cells (Auto) 01/02/19 01/03/19 01/03/19 14:25 04:20 04:20 WBC RBC 3.23 L MCV 102 H MCH 35 H MCHC RDW 17.8 H Seg Neuts % (Manual) Lymphocytes % (Manual) Monocytes % (Manual) Seg Neutrophils # Man Lymphocytes # (Manual) Monocytes # (Manual) PT INR APTT Sodium 131 L 132 L Potassium 3.5 L D 3.2 L Chloride BUN 4 L 4 L Creatinine < 0.2 L < 0.2 L Glucose 119 H 105 H POC Glucose Lactic Acid Calcium 7.2 L 7.4 L Magnesium Total Bilirubin 13.70 H 13.10 H Direct Bilirubin AST 84 H 79 H Alkaline Phosphatase 248 H 223 H Total Protein 5.7 L 5.5 L Albumin 2.1 L 1.8 L Urine WBC (Auto) U Epithel Cells (Auto) 01/04/19 01/04/19 01/04/19 06:19 06:19 06:19 WBC RBC 3.26 L MCV 103 H MCH 35 H MCHC RDW 17.6 H Seg Neuts % (Manual) Lymphocytes % (Manual) Monocytes % (Manual) Seg Neutrophils # Man Lymphocytes # (Manual) Monocytes # (Manual) PT 22.2 H INR 1.99 H APTT Sodium 132 L Potassium Chloride BUN 4 L Creatinine < 0.2 L Glucose POC Glucose Lactic Acid Calcium 7.9 L Magnesium Total Bilirubin 13.00 H Direct Bilirubin AST 82 H Alkaline Phosphatase 210 H Total Protein 5.5 L Albumin 1.9 L Urine WBC (Auto) U Epithel Cells (Auto) Allied health notes reviewed: nursing
--- NOTE | 2019-01-04 10:22 | Progress Note ---
Assessment and Plan Assessment and plan: 48 year old woman history of alcohol cirrhosis, depression, anxiety, psoriasis, portal hypertension, psoriasis, hard of hearing was admitted to the hospital on December 25, she left AGAINST MEDICAL ADVICE on the . Patient was treated for colitis, enteritis among others. After leaving here, she was taken to a hospital where she stayed for one day. She does not know what medication she was discharged on. Patient stated that her abdomen is More distended, she has lower extremity edema. Still complaining of left lower quadrant pain. Patient was started on Rocephin, Flagyl, she became hypotensive in the ER and was started on Levophed drip and admitted to the ICU, subsequently transfered to medsurg unit following liberation from the pressors. alcoholic cirrhosis with ascites Decompensated Cirrhosis with MELD SCORE OF 27 on 01/01 Vasogenic shock now resolved Colitis/enteritis hyponatremia Hypokalemia Severe protein calorie Malnutrition Coagulopathy Depression Psoriasis Anxiety Portal hypertension with varices PLAN Patient is status POST ultrasound-guided paracentesis Await fluid analysis Continue abx as ordered GI input is noted, patient with overal poor prognosis and is not currently not a liver transplant candidate due to non-compliance and alcohol consumption, however denies any further ETOH since prior d/c Continue to avoid avoid opiates and other hepatotoxic meds continue to trend labs and supportive care Must be complaint with follow up. Pt verbalized understanding. dvt/gi PROPHY INR 1.99 today. Vit K given, recheck in am Discussed with GI staff History Interval history: feels better wants to go home less abd pain Hospitalist Physical - Physical exam Narrative exam: Gen: Not in acute distress, lying in bed,ill looking HEENT: Normocephalic, atraumatic Neck: supple, no JVD Heart: S1 and S2 reg, no murmurs, rubs or gallop Lungs: Clear, no crackles, no wheeze Abd: soft, non tender,distended, ascitis, normal BS Ext: No edema, no clubbing, no cyanosis, Neuro: Awake,alert, oriented x 3, moves all ext, non focal Psych:Normal mood - Constitutional Vitals: Temp Pulse Resp BP Pulse Ox 97.7 F 81 16 97/64 96 01/04/19 05:55 01/04/19 05:55 01/04/19 05:55 01/04/19 05:55 01/04/19 05:55 Results - Labs CBC & Chem 7: 01/04/19 06:19 01/04/19 06:19 Labs: Laboratory Last Values WBC 10.4 K/mm3 (4.5-11.0) 01/04/19 06:19 RBC 3.26 M/mm3 (3.65-5.03) L 01/04/19 06:19 Hgb 11.3 gm/dl (10.1-14.3) 01/04/19 06:19 Hct 33.5 % (30.3-42.9) 01/04/19 06:19 MCV 103 fl (79-97) H 01/04/19 06:19 MCH 35 pg (28-32) H 01/04/19 06: MCHC 34 % (30-34) 01/04/19 06:19 RDW 17.6 % (13.2-15.2) H 01/04/19 06:19 Plt Count 143 K/mm3 (140-440) 01/04/19 06:19 [place] % (Auto) Training Analyst 01/02/19 04:27 Add Manual Diff Complete 01/02/19 04:27 Total Counted 100 01/02/19 04:27 Seg Neuts % (Manual) 78.0 % (40.0-70.0) H 01/02/19 04:27 2.0 % 01/02/19 04:27 2.0 % (13.4-35.0) L 01/02/19 04:27 Reactive Lymphs % (Man) 0 % 01/02/19 04:27 15.0 % (0.0-7.3) H 01/02/19 04:27 0 % (0.0-4.3) 01/02/19 04:27 0 % (0.0-1.8) 01/02/19 04:27 2.0 % 01/02/19 04:27 1.0 % 01/02/19 04:27 0 % 01/02/19 04:27 0 % 01/02/19 04:27 Nucleated RBC % Not Reportable 01/02/19 04:27 Seg Neutrophils # Man 13.6 K/mm3 (1.8-7.7) H 01/02/19 04:27 Band Neutrophils # 0.3 K/mm3 01/02/19 04:27 0.3 K/mm3 (1.2-5.4) L 01/02/19 04:27 Abs React Lymphs (Man) 0.0 K/mm3 01/02/19 04:27 2.6 K/mm3 (0.0-0.8) H 01/02/19 04:27 0.0 K/mm3 (0.0-0.4) 01/02/19 04:27 0.0 K/mm3 (0.0-0.1) 01/02/19 04:27 0.3 K/mm3 01/02/19 04:27 0.2 K/mm3 01/02/19 04:27 0.0 K/mm3 01/02/19 04:27 Blast Cells # 0.0 K/mm3 01/02/19 04:27 WBC Morphology Not Reportable 01/02/19 04:27 Hypersegmented Neuts Not Reportable 01/02/19 04:27 Hyposegmented Neuts Not Reportable 01/02/19 04:27 Hypogranular Neuts Not Reportable 01/02/19 04:27 Not Reportable 01/02/19 04:27 Not Reportable 01/02/19 04:27 Not Reportable 01/02/19 04:27 Not Reportable 01/02/19 04:27 Not Reportable 01/02/19 04:27 Not Reportable 01/02/19 04:27 Consistent w auto 01/02/19 04:27 Not Reportable 01/02/19 04:27 Plt Clumps, EDTA Not Reportable 01/02/19 04:27 Not Reportable 01/02/19 04:27 Not Reportable 01/02/19 04:27 Not Reportable 01/02/19 04:27 Plt Morphology Comment Not Reportable 01/02/19 04:27 RBC Morphology Not Reportable 01/02/19 04:27 Dimorphic RBCs Not Reportable 01/02/19 04:27 Few 01/02/19 04:27 Few 01/02/19 04:27 Not Reportable 01/02/19 04:27 Not Reportable 01/02/19 04:27 Not Reportable 01/02/19 04:27 Not Reportable 01/02/19 04:27 Not Reportable 06/16/19 04:27 Not Reportable 01/02/19 04:27 Not Reportable 01/02/19 04:27 Few 01/02/19 04:27 Not Reportable 01/02/19 04:27 Not Reportable 01/02/19 04:27 Not Reportable 01/02/19 04:27 Not Reportable 01/02/19 04:27 Not Reportable 01/02/19 04:27 Not Reportable 01/02/19 04:27 Not Reportable 01/02/19 04:27 Not Reportable 01/02/19 04:27 Not Reportable 01/02/19 04:27 Acanthocytes (Spur) Not Reportable 01/02/19 04:27 Rouleaux Not Reportable 01/02/19 04:27 Not Reportable 01/02/19 04:27 Not Reportable 01/02/19 04:27 Not Reportable 01/02/19 04:27 Not Reportable 01/02/19 04:27 Hem Pathologist Commnt No 01/02/19 04:27 PT 22.2 Sec. (12.2-14.9) H 01/04/19 06:19 INR 1.99 (0.87-1.13) H 01/04/19 06:19 APTT 47.2 Sec. (24.2-36.6) H 01/01/19 22:51 Sodium 132 mmol/L (137-145) L 01/04/19 06:19 Potassium 4.4 mmol/L (3.6-5.0) D 01/04/19 06:19 Chloride 100.7 mmol/L (98-107) 01/04/19 06:19 Carbon Dioxide 24 mmol/L (22-30) 01/04/19 06:19 12 mmol/L 01/04/19 06:19 BUN 4 mg/dL (7-17) L 01/04/19 06:19 < 0.2 mg/dL (0.7-1.2) L 01/04/19 06:19 Estimated GFR > 60 ml/min 01/04/19 06:19 20 % 01/04/19 06:19 Glucose 88 mg/dL (65-100) 01/04/19 06:19 POC Glucose 126 (70-105) H 01/02/19 08:50 Lactic Acid 1.70 mmol/L (0.7-2.0) 01/01/19 23:53 Calcium 7.9 mg/dL (8.4-10.2) L 01/04/19 06:19 Magnesium 1.90 mg/dL (1.7-2.3) 01/03/19 04:20 13.00 mg/dL (0.1-1.2) H 01/04/19 06:19 11.2 mg/dL (0-0.2) H 01/01/19 21:36 4.0 mg/dL 01/01/19 21:36 AST 82 units/L (5-40) H 01/04/19 06:19 ALT 35 units/L (7-56) 01/04/19 06:19 210 units/L (35-129) H 01/04/19 06:19 71 units/L (30-135) 01/01/19 22:51 5.5 g/dL (6.3-8.2) L 01/04/19 06:19 1.9 g/dL (3.9-5) L 01/04/19 06:19 0.5 % 01/04/19 06:19 41 units/L (13-60) 01/01/19 21:36 Laura (Yellow) 01/01/19 22:23 Cloudy (Clear) 01/01/19 22:23 6.0 (5.0-7.0) 01/01/19 22:23 Ur Specific [place] 1.023 (1.003-1.030) 01/01/19 22:23 30 mg/dl mg/dL (Negative) 01/01/19 22:23 Neg mg/dL (Negative) 01/01/19 22:23 Neg mg/dL (Negative) 01/01/19 22:23 Mod (Negative) 01/01/19 22:23 Neg (Negative) 01/01/19 22:23 Mod (Negative) 01/01/19 22:23 Positive (Negative) 01/01/19 22:23 4.0 mg/dL (<2.0) 01/01/19 22:23 Ur Leukocyte Esterase Neg (Negative) 01/01/19 22:23 11.0 /HPF (0.0-6.0) H 01/01/19 22:23 3.0 /HPF (0.0-6.0) 01/01/19 22:23 U Epithel Cells (Auto) 39.0 /HPF (0-13.0) H 01/01/19 22:23 1+ /HPF (Negative) 01/01/19 22:23 3+ /HPF 01/01/19 22:23 Fluid Type Ascitic 01/03/19 Unknown Fluid Color Yellow 01/03/19 Unknown Fluid Appearance Turbid 01/03/19 Unknown Fluid WBC 107 /mm3 01/03/19 Unknown Fluid RBC 72 /mm3 01/03/19 Unknown Fluid Seg Neutrophils 29.0 % 01/03/19 Unknown Fluid Lymphocytes 19.0 % 01/03/19 Unknown Fluid Reactive Lymphs 0 % 01/03/19 Unknown Fluid Monocytes 50.0 % 01/03/19 Unknown Fluid Eosinophils 2.0 % 01/03/19 Unknown Fluid Basophils 0 % 01/03/19 Unknown Active Medications - Current Medications Current Medications: Generic Name Dose Route Start Last Admin Trade Name Freq PRN Reason Stop Dose Admin Ceftriaxone Sodium 1 gm in 50 mls @ 100 mls/hr 01/02/19 10:00 01/04/19 09:25 Rocephin/Ns 1 Gm/50 Ml IV 100 mls/hr Q24HR FOREIGN Administration Protocol Metronidazole 500 mg 01/02/19 06:00 01/04/19 05:47 Flagyl PO 500 mg Q8H FOREIGN Administration Protocol Morphine Sulfate 2 mg 01/02/19 08:55 01/04/19 05:51 Morphine IV 2 mg Q4H PRN Administration Pain, Moderate (4-6) Ondansetron HCl 4 mg 01/02/19 01:52 Zofran IV Q8H PRN Nausea And Vomiting Phytonadione 10 mg 01/02/19 10:00 01/03/19 09:55 Vitamin K *Oral Liquid* PO 10 mg DAILY FOREIGN Administration Sodium Chloride 10 ml 01/02/19 10:00 01/04/19 09:25 Sodium Chloride Flush Syringe 10 Ml IV 10 ml BID FOREIGN Administration Sodium Chloride 10 ml 01/02/19 01:52 Sodium Chloride Flush Syringe 10 Ml IV PRN PRN LINE FLUSH Tramadol HCl 50 mg 01/02/19 04:18 01/04/19 04:15 Ultram PO 50 mg Q6H PRN Administration Pain, Moderate (4-6)
[2019-01-04] MEDS: VITAMIN K *ORAL LIQUID PO SCH (11:38)
--- NOTE | 2019-01-04 12:05 | Gastroenterology Progress Note ---
<PATRICK MEDRANO - Last Filed: 01/04/19 12:05> Assessment and Plan 1.alcoholic cirrhosis with ascites -afebrile -WBC WNL -H/H WNL -INR 1.99-slight trend up -LFTs-stable -etiology-cirrhosis 2/2 ETOH -clinically, patient is stable. No active signs of bleeding or encephalopathy upon exam. -ascites-s/p paracentesis yesterday with 3.2L removed; no evidence of SBP -LVP PRN -MELD as of 01/01 = 27 which carries with it overall poor prognosis- currently not a liver transplant candidate due to non-compliance and alcohol consumption, however denies any further ETOH since prior d/c -will give vitamin K challenge given slight trend up in INR to check synthetic function of liver -low sodium diet -avoid opiates and other hepatotoxic meds -continued alcohol cessation discussed/encouraged with patient -continue to trend labs and supportive care -if INR responds to vit K and patient remains stable in am, okay to be d/c per GI standpoint with f/u in clinic for further management Subjective Date of service: 01/04/19 Principal diagnosis: cirrhosis Interval history: No acute distress. Objective - Constitutional Vitals: Temp Pulse Resp BP Pulse Ox 97.7 F 81 16 97/64 96 01/04/19 05:55 01/04/19 05:55 01/04/19 05:55 01/04/19 05:55 01/04/19 05:55 General appearance: no acute distress - Respiratory Respiratory effort: normal - Cardiovascular Rhythm: regular - Gastrointestinal General gastrointestinal: Present: soft, non-tender, distended (improved-slight (ascites)), normal bowel sounds - Neurologic Neurological: alert and oriented x3 - Labs CBC & Chem 7: 01/04/19 06:19 01/04/19 06:19 Labs: Laboratory Results - last 24 hr 01/03/19 01/04/19 01/04/19 Unknown 06:19 06:19 WBC 10.4 RBC 3.26 L Hgb 11.3 Hct 33.5 MCV 103 H MCH 35 H MCHC 34 RDW 17.6 H Plt Count 143 PT INR Sodium 132 L Potassium 4.4 D Chloride 100.7 Carbon Dioxide 24 Anion Gap 12 BUN 4 L Creatinine < 0.2 L Estimated GFR > 60 BUN/Creatinine Ratio 20 Glucose 88 Calcium 7.9 L Total Bilirubin 13.00 H AST 82 H ALT 35 Alkaline Phosphatase 210 H Total Protein 5.5 L Albumin 1.9 L Albumin/Globulin Ratio 0.5 Fluid Type Ascitic Fluid Color Yellow Fluid Appearance Turbid Fluid WBC 107 Fluid RBC 72 Fluid Seg Neutrophils 29.0 Fluid Lymphocytes 19.0 Fluid Reactive Lymphs 0 Fluid Monocytes 50.0 Fluid Eosinophils 2.0 Fluid Basophils 0 01/04/19 06:19 WBC RBC Hgb Hct MCV MCH MCHC RDW Plt Count PT 22.2 H INR 1.99 H Sodium Potassium Chloride Carbon Dioxide Anion Gap BUN Creatinine Estimated GFR BUN/Creatinine Ratio Glucose Calcium Total Bilirubin AST ALT Alkaline Phosphatase Total Protein Albumin Albumin/Globulin Ratio Fluid Type Fluid Color Fluid Appearance Fluid WBC Fluid RBC Fluid Seg Neutrophils Fluid Lymphocytes Fluid Reactive Lymphs Fluid Monocytes Fluid Eosinophils Fluid Basophils <SELENE SALAS - Last Filed: 01/04/19 23:58> Assessment and Plan Patient seen and examined. Advanced practitioner's assessment and plan evaluated and I agree with the plan with the following additions: patient without acute complaints, continue supportive care with plan as above - Patient Problems (1) Elevated LFTs Onset Date: 04/29/14 Current Visit: Yes Status: Acute (2) History of alcohol abuse Current Visit: Yes Status: Acute (3) Hypokalemia Current Visit: Yes Status: Acute (4) Cirrhosis of liver Current Visit: No Status: Acute Qualifiers: Hepatic cirrhosis type: alcoholic cirrhosis Ascites presence: with ascites Qualified Code(s): K70.31 - Alcoholic cirrhosis of liver with ascites (5) Alcoholic cirrhosis of liver with ascites Current Visit: No Status: Chronic Objective - Constitutional Vitals: Temp Pulse Resp BP Pulse Ox 98.5 F 77 16 95/61 96 01/04/19 22:24 01/04/19 22:24 01/04/19 22:24 01/04/19 22:24 01/04/19 22:24 - Labs CBC & Chem 7: 01/04/19 06:19 01/04/19 06:19 Labs: Laboratory Results - last 24 hr 01/04/19 01/04/19 01/04/19 06:19 06:19 06:19 WBC 10.4 RBC 3.26 L Hgb 11.3 Hct 33.5 MCV 103 H MCH 35 H MCHC 34 RDW 17.6 H Plt Count 143 PT 22.2 H INR 1.99 H Sodium 132 L Potassium 4.4 D Chloride 100.7 Carbon Dioxide 24 Anion Gap 12 BUN 4 L Creatinine < 0.2 L Estimated GFR > 60 BUN/Creatinine Ratio 20 Glucose 88 Calcium 7.9 L Total Bilirubin 13.00 H AST 82 H ALT 35 Alkaline Phosphatase 210 H Total Protein 5.5 L Albumin 1.9 L Albumin/Globulin Ratio 0.5
[2019-01-04] MEDS ORDERED: VITAMIN K (ADULT ONLY) 10 MG in NACL 0.9% 50 ML IV ONE (14:00)
[2019-01-05] MEDS: FLAGYL PO SCH ×3 (05:24→21:00)
[2019-01-05] MEDS: ULTRAM PO PRN ×2 (05:32→12:28)
--- NOTE | 2019-01-05 08:31 | XRay Report ---
Single view chest: Compared to 12/25/18. History: Pleural effusion. Findings: Normal cardiomediastinal silhouette. Trachea is midline. Suspicion of COPD. No consolidation or effusion. Impression: No acute cardiopulmonary findings . Impression: Suspicion of mild COPD. No unchanged
[2019-01-05] MEDS: ROCEPHIN/NS 1 GM/50 ML 1 GM/50 ML BAG IV SCH (09:01)
[2019-01-05] MEDS: MORPHINE IV PRN ×3 (09:03→20:55)
[2019-01-05 11:22] LABS: INR 2.13 (0.87-1.13)
[2019-01-05 11:48] LABS: Alanine Aminotransferase 31 units/L (7-56); Albumin 2.1 g/dL (3.9-5); BUN/Creatinine Ratio 20; Blood Urea Nitrogen 4 mg/dL (7-17); Calcium 7.9 mg/dL (8.4-10.2); Hemolysis Index 2
[2019-01-05] MEDS: SODIUM CHLORIDE FLUSH SYRINGE 10 ML IV SCH ×2 (12:34→21:01)
--- NOTE | 2019-01-05 14:16 | Gastroenterology Progress Note ---
<PATRICK MEDRANO - Last Filed: 01/05/19 14:28> Assessment and Plan 1.alcoholic cirrhosis with ascites -afebrile -WBC WNL -H/H WNL -INR 2.13-trending up despite vit K yesterday -LFTs-T.jolly 14.00 (trending up), AST 71, ALT 31, alk phos 218 -etiology-decompensated cirrhosis 2/2 ETOH with ascites -no active signs of bleeding or encephalopathy upon exam. Tolerating diet. -ascites-recommend LVP PRN-s/p paracentesis 01/03 with 3.2L removed; no evidence of SBP -no recommendations for diuretics at this time given low BP, will consider in the future if able to tolerate -continue low sodium diet -avoid opiates and other hepatotoxic meds -continued alcohol cessation discussed/encouraged with patient -continue to trend labs and supportive care -MELD as of 01/01 = 27 (she was previously treated with steroids earlier this month) which carries with it overall poor prognosis- currently not a liver transplant candidate due to non-compliance and alcohol consumption (however denies any further ETOH since prior d/c) -patient currently considering hospice services Subjective Date of service: 01/05/19 Principal diagnosis: cirrhosis Interval history: No acute distress. Objective - Constitutional Vitals: Temp Pulse Resp BP Pulse Ox 98.3 F 89 18 106/71 96 01/05/19 11:51 01/05/19 11:51 01/05/19 11:51 01/05/19 11:51 01/05/19 11:51 General appearance: no acute distress - Respiratory Respiratory effort: normal - Cardiovascular Rhythm: regular - Gastrointestinal General gastrointestinal: Present: soft, non-tender, distended (slightly (ascites)), normal bowel sounds - Integumentary Integumentary: Present: jaundice - Neurologic Neurological: alert and oriented x3 - Labs CBC & Chem 7: 01/04/19 06:19 01/05/19 10:55 Labs: Laboratory Results - last 24 hr 01/05/19 01/05/19 10:55 10:55 PT 23.4 H INR 2.13 H Sodium 132 L Potassium 4.0 Chloride 97.6 L Carbon Dioxide 23 Anion Gap 15 BUN 4 L Creatinine < 0.2 L Estimated GFR > 60 BUN/Creatinine Ratio 20 Glucose 101 H Calcium 7.9 L Total Bilirubin 14.00 H AST 71 H ALT 31 Alkaline Phosphatase 218 H Total Protein 5.8 L Albumin 2.1 L Albumin/Globulin Ratio 0.6 <SELENE SALAS - Last Filed: 01/05/19 23:03> Assessment and Plan Patient seen and examined. I agree with the advanced practitioner's assessment and plan, with the following additions: Patient clinically stable without bleeding or major complaint curently other than recurring ascites. Follow labs and encourage nutrition. Regarding termite control technician management, unless patient can completely stop all alcohol consumption her prognosis is poor, and even if she is successful in alcohol cessation her prognosis is likely limited. Therefore agree with consideration of hospice services - Patient Problems (1) Elevated LFTs Onset Date: 04/29/14 Current Visit: Yes Status: Acute (2) History of alcohol abuse Current Visit: Yes Status: Acute (3) Hypokalemia Current Visit: Yes Status: Acute (4) Cirrhosis of liver Current Visit: No Status: Acute Qualifiers: Hepatic cirrhosis type: alcoholic cirrhosis Ascites presence: with ascites Qualified Code(s): K70.31 - Alcoholic cirrhosis of liver with ascites (5) Alcoholic cirrhosis of liver with ascites Current Visit: No Status: Chronic Objective - Constitutional Vitals: Temp Pulse Resp BP Pulse Ox 97.4 F L 91 H 20 109/72 97 01/05/19 17:46 01/05/19 17:46 01/05/19 17:46 01/05/19 17:46 01/05/19 17:46 - Labs CBC & Chem 7: 01/04/19 06:19 01/05/19 10:55 Labs: Laboratory Results - last 24 hr 01/05/19 01/05/19 10:55 10:55 PT 23.4 H INR 2.13 H Sodium 132 L Potassium 4.0 Chloride 97.6 L Carbon Dioxide 23 Anion Gap 15 BUN 4 L Creatinine < 0.2 L Estimated GFR > 60 BUN/Creatinine Ratio 20 Glucose 101 H Calcium 7.9 L Total Bilirubin 14.00 H AST 71 H ALT 31 Alkaline Phosphatase 218 H Total Protein 5.8 L Albumin 2.1 L Albumin/Globulin Ratio 0.6
--- NOTE | 2019-01-05 14:45 | Progress Note ---
Assessment and Plan Assessment and plan: 48 year old woman history of alcohol cirrhosis, depression, anxiety, psoriasis, portal hypertension, psoriasis, hard of hearing was admitted to the hospital on December 25, she left AGAINST MEDICAL ADVICE on the . Patient was treated for colitis, enteritis among others. After leaving here, she was taken to a hospital where she stayed for one day. She does not know what medication she was discharged on. Patient stated that her abdomen is More distended, she has lower extremity edema. Still complaining of left lower quadrant pain. Patient was started on Rocephin, Flagyl, she became hypotensive in the ER and was started on Levophed drip and admitted to the ICU, subsequently transfered to medsurg unit following liberation from the pressors. alcoholic cirrhosis with ascites Decompensated Cirrhosis with MELD SCORE OF 27 on 01/01 Vasogenic shock now resolved Colitis/enteritis hyponatremia Hypokalemia Severe protein calorie Malnutrition Coagulopathy Depression Psoriasis Anxiety Portal hypertension with varices PLAN Patient is status POST ultrasound-guided paracentesis Await fluid analysis Continue abx as ordered GI input is noted, patient with overal poor prognosis and is not currently not a liver transplant candidate due to non-compliance and alcohol consumption, however denies any further ETOH since prior d/c Continue to avoid avoid opiates and other hepatotoxic meds continue to trend labs and supportive care Must be complaint with follow up. Pt verbalized understanding. dvt/gi PROPHY INR 2.13. Vit K given. No active acute bleeding Discussed with GI staff Likely dc home tomorrow History Interval history: feels better wants to go home less abd pain Hospitalist Physical - Physical exam Narrative exam: Gen: Not in acute distress, lying in bed,ill looking HEENT: Normocephalic, atraumatic Neck: supple, no JVD Heart: S1 and S2 reg, no murmurs, rubs or gallop Lungs: Clear, no crackles, no wheeze Abd: soft, non tender,distended, ascitis, normal BS Ext: No edema, no clubbing, no cyanosis, Neuro: Awake,alert, oriented x 3, moves all ext, non focal Psych:Normal mood - Constitutional Vitals: Temp Pulse Resp BP Pulse Ox 98.3 F 89 18 106/71 96 01/05/19 11:51 01/05/19 11:51 01/05/19 11:51 01/05/19 11:51 01/05/19 11:51 Results - Labs CBC & Chem 7: 01/04/19 06:19 01/05/19 10:55 Labs: Laboratory Last Values WBC 10.4 K/mm3 (4.5-11.0) 01/04/19 06:19 RBC 3.26 M/mm3 (3.65-5.03) L 01/04/19 06:19 Hgb 11.3 gm/dl (10.1-14.3) 01/04/19 06:19 Hct 33.5 % (30.3-42.9) 01/04/19 06:19 MCV 103 fl (79-97) H 01/04/19 06:19 MCH 35 pg (28-32) H 01/04/19 06: MCHC 34 % (30-34) 01/04/19 06:19 RDW 17.6 % (13.2-15.2) H 01/04/19 06:19 Plt Count 143 K/mm3 (140-440) 01/04/19 06:19 [place] % (Auto) [place] 01/02/19 04:27 Add Manual Diff Complete 01/02/19 04:27 Total Counted 100 01/02/19 04:27 Seg Neuts % (Manual) 78.0 % (40.0-70.0) H 01/02/19 04:27 2.0 % 01/02/19 04:27 2.0 % (13.4-35.0) L 01/02/19 04:27 Reactive Lymphs % (Man) 0 % 01/02/19 04:27 15.0 % (0.0-7.3) H 01/02/19 04:27 0 % (0.0-4.3) 01/02/19 04:27 0 % (0.0-1.8) 01/02/19 04:27 2.0 % 01/02/19 04:27 1.0 % 01/02/19 04:27 0 % 01/02/19 04:27 0 % 01/02/19 04:27 Nucleated RBC % Not Reportable 01/02/19 04:27 Seg Neutrophils # Man 13.6 K/mm3 (1.8-7.7) H 01/02/19 04:27 Band Neutrophils # 0.3 K/mm3 01/02/19 04:27 0.3 K/mm3 (1.2-5.4) L 01/02/19 04:27 Abs React Lymphs (Man) 0.0 K/mm3 01/02/19 04:27 2.6 K/mm3 (0.0-0.8) H 01/02/19 04:27 0.0 K/mm3 (0.0-0.4) 01/02/19 04:27 0.0 K/mm3 (0.0-0.1) 01/02/19 04:27 0.3 K/mm3 01/02/19 04:27 0.2 K/mm3 01/02/19 04:27 0.0 K/mm3 01/02/19 04:27 Blast Cells # 0.0 K/mm3 01/02/19 04:27 WBC Morphology Not Reportable 01/02/19 04:27 Hypersegmented Neuts Not Reportable 01/02/19 04:27 Hyposegmented Neuts Not Reportable 01/02/19 04:27 Hypogranular Neuts Not Reportable 01/02/19 04:27 Not Reportable 01/02/19 04:27 Not Reportable 01/02/19 04:27 Not Reportable 01/02/19 04:27 Not Reportable 01/02/19 04:27 Not Reportable 01/02/19 04:27 Not Reportable 01/02/19 04:27 Consistent w auto 01/02/19 04:27 Not Reportable 01/02/19 04:27 Plt Clumps, EDTA Not Reportable 01/02/19 04:27 Not Reportable 01/02/19 04:27 Not Reportable 01/02/19 04:27 Not Reportable 01/02/19 04:27 Plt Morphology Comment Not Reportable 01/02/19 04:27 RBC Morphology Not Reportable 01/02/19 04:27 Dimorphic RBCs Not Reportable 01/02/19 04:27 Few 01/02/19 04:27 Few 01/02/19 04:27 Not Reportable 01/02/19 04:27 Not Reportable 01/02/19 04:27 Not Reportable 01/02/19 04:27 Not Reportable 01/02/19 04:27 Not Reportable 01/02/19 04:27 Not Reportable 01/02/19 04:27 Not Reportable 01/02/19 04:27 Few 01/02/19 04:27 Not Reportable 01/02/19 04:27 Not Reportable 01/02/19 04:27 Not Reportable 01/02/19 04:27 Not Reportable 01/02/19 04:27 Not Reportable 01/02/19 04:27 Not Reportable 01/02/19 04:27 Not Reportable 01/02/19 04:27 Not Reportable 01/02/19 04:27 Not Reportable 01/02/19 04:27 Acanthocytes (Spur) Not Reportable 01/02/19 04:27 Rouleaux Not Reportable 01/02/19 04:27 Not Reportable 01/02/19 04:27 Not Reportable 01/02/19 04:27 Not Reportable 01/02/19 04:27 Not Reportable 01/02/19 04:27 Hem Pathologist Commnt No 01/02/19 04:27 PT 23.4 Sec. (12.2-14.9) H 01/05/19 10:55 INR 2.13 (0.87-1.13) H 01/05/19 10:55 APTT 47.2 Sec. (24.2-36.6) H 01/01/19 22:51 Sodium 132 mmol/L (137-145) L 01/05/19 10:55 Potassium 4.0 mmol/L (3.6-5.0) 01/05/19 10:55 Chloride 97.6 mmol/L (98-107) L 01/05/19 10:55 Carbon Dioxide 23 mmol/L (22-30) 01/05/19 10:55 15 mmol/L 01/05/19 10:55 BUN 4 mg/dL (7-17) L 01/05/19 10:55 < 0.2 mg/dL (0.7-1.2) L 01/05/19 10:55 Estimated GFR > 60 ml/min 01/05/19 10:55 20 % 01/05/19 10:55 Glucose 101 mg/dL (65-100) H 01/05/19 10:55 POC Glucose 126 (70-105) H 01/02/19 08:50 Lactic Acid 1.70 mmol/L (0.7-2.0) 01/01/19 23:53 Calcium 7.9 mg/dL (8.4-10.2) L 01/05/19 10:55 Magnesium 1.90 mg/dL (1.7-2.3) 01/03/19 04:20 14.00 mg/dL (0.1-1.2) H 01/05/19 10:55 11.2 mg/dL (0-0.2) H 01/01/19 21:36 4.0 mg/dL 01/01/19 21:36 AST 71 units/L (5-40) H 01/05/19 10:55 ALT 31 units/L (7-56) 01/05/19 10:55 218 units/L (35-129) H 01/05/19 10:55 71 units/L (30-135) 01/01/19 22:51 5.8 g/dL (6.3-8.2) L 01/05/19 10:55 2.1 g/dL (3.9-5) L 01/05/19 10:55 0.6 % 01/05/19 10:55 41 units/L (13-60) 01/01/19 21:36 Laura (Yellow) 01/01/19 22:23 Cloudy (Clear) 01/01/19 22:23 6.0 (5.0-7.0) 01/01/19 22:23 Ur Specific [place] 1.023 (1.003-1.030) 01/01/19 22:23 30 mg/dl mg/dL (Negative) 01/01/19 22:23 Neg mg/dL (Negative) 01/01/19 22:23 Neg mg/dL (Negative) 01/01/19 22:23 Mod (Negative) 01/01/19 22:23 Neg (Negative) 01/01/19 22:23 Mod (Negative) 01/01/19 22:23 Positive (Negative) 01/01/19 22:23 4.0 mg/dL (<2.0) 01/01/19 22:23 Ur Leukocyte Esterase Neg (Negative) 01/01/19 22:23 11.0 /HPF (0.0-6.0) H 01/01/19 22:23 3.0 /HPF (0.0-6.0) 01/01/19 22:23 U Epithel Cells (Auto) 39.0 /HPF (0-13.0) H 01/01/19 22:23 1+ /HPF (Negative) 01/01/19 22:23 3+ /HPF 01/01/19 22:23 Fluid Type Ascitic 01/03/19 Unknown Fluid Color Yellow 01/03/19 Unknown Fluid Appearance Turbid 01/03/19 Unknown Fluid WBC 107 /mm3 01/03/19 Unknown Fluid RBC 72 /mm3 01/03/19 Unknown Fluid Seg Neutrophils 29.0 % 01/03/19 Unknown Fluid Lymphocytes 19.0 % 01/03/19 Unknown Fluid Reactive Lymphs 0 % 01/03/19 Unknown Fluid Monocytes 50.0 % 01/03/19 Unknown Fluid Eosinophils 2.0 % 01/03/19 Unknown Fluid Basophils 0 % 01/03/19 Unknown Active Medications - Current Medications Current Medications: Generic Name Dose Route Start Last Admin Trade Name Freq PRN Reason Stop Dose Admin Ceftriaxone Sodium 1 gm in 50 mls @ 100 mls/hr 01/02/19 10:00 01/05/19 09:01 Rocephin/Ns 1 Gm/50 Ml IV 100 mls/hr Q24HR FOREIGN Administration Protocol Metronidazole 500 mg 01/02/19 06:00 01/05/19 14:15 Flagyl PO 500 mg Q8H FOREIGN Administration Protocol Morphine Sulfate 2 mg 01/02/19 08:55 01/05/19 14:05 Morphine IV 2 mg Q4H PRN Administration Pain, Moderate (4-6) Ondansetron HCl 4 mg 01/02/19 01:52 01/04/19 21:52 Zofran IV 4 mg Q8H PRN Administration Nausea And Vomiting Sodium Chloride 10 ml 01/02/19 10:00 01/05/19 12:34 Sodium Chloride Flush Syringe 10 Ml IV 10 ml BID FOREIGN Administration Sodium Chloride 10 ml 01/02/19 01:52 Sodium Chloride Flush Syringe 10 Ml IV PRN PRN LINE FLUSH Tramadol HCl 50 mg 01/02/19 04:18 01/05/19 12:28 Ultram PO 50 mg Q6H PRN Administration Pain, Moderate (4-6)
--- NOTE | 2019-01-05 18:07 | Progress Note ---
Assessment and Plan Patient weak. Patient is on room air. O2 Sat 97%. No acute respiratory distress. Patient has paracentisis . The paracentisis fluid reported WBC count 107 and RBC 72. The rest of the results are pending. - Patient Problems (1) History of alcohol abuse Current Visit: Yes Status: Acute Plan to address problem: Management as per primary care. (2) Hypokalemia Current Visit: Yes Status: Acute Plan to address problem: K+ corrected. Today Potassium is 4.0 (3) Hyponatremia Current Visit: Yes Status: Acute Plan to address problem: Sodium is slowly improving. Today sodium 132 (4) Hypotension Current Visit: Yes Status: Acute Plan to address problem: Blood pressure is improved. Today blood pressure 109/72 (5) Acute GI hemorrhage Current Visit: No Status: Acute Plan to address problem: Management as per entomology (6) Ascites Current Visit: No Status: Acute Qualifiers: Ascites type: due to alcoholic cirrhosis Qualified Code(s): K70.31 - Alcoholic cirrhosis of liver with ascites Plan to address problem: Patient is on undergone paracenthesis. The results are pending. (7) Liver failure without hepatic coma Current Visit: No Status: Acute Plan to address problem: Management as per primary care and gastroentology. (8) Thrombocytopenia Current Visit: No Status: Acute Plan to address problem: Today Platelet count is 143,000 Subjective Date of service: 01/05/19 Principal diagnosis: cirrhosis Interval history: Patient weak. Patient is on room air. O2 Sat 97%. No acute respiratory distress. Patient has paracentisis . The paracentisis fluid reported WBC count 107 and RBC 72. The rest of the results are pending. Objective Vital Signs - 12hr 01/05/19 01/05/19 06:32 11:51 Temperature 98.3 F Pulse Rate 89 Respiratory 18 18 Rate Blood Pressure 106/71 O2 Sat by Pulse 96 Oximetry Constitutional: no acute distress, alert, other (middle aged female, normocephalica nd atraumatic with normal resp effort at rest) Eyes: icteric ENT: oropharynx moist Neck: supple, no lymphadenopathy, no JVD Effort: normal Ascultation: Bilateral: diminished breath sounds (at bases) Percussion: Bilateral: not dull Cardiovascular: regular rate and rhythm Gastrointestinal: hypoactive bowel sounds, soft, tender (mild epigastric), other (distended) Integumentary: other (icteric) Extremities: no cyanosis, pink and warm, pulses normal, no ischemia or petechiae Neurologic: normal mental status, non-focal exam, pupils equal and round, motor strength normal and Psychiatric: mood appropriate, affect normal CBC and BMP: 01/04/19 06:19 01/05/19 10:55 ABG, PT/INR, D-dimer: PT/INR, D-dimer PT 23.4 Sec. (12.2-14.9) H 01/05/19 10:55 INR 2.13 (0.87-1.13) H 01/05/19 10:55 Abnormal lab findings: Abnormal Labs 01/01/19 01/01/19 01/01/19 21:36 21:36 22:23 WBC RBC 3.47 L MCV 101 H MCH 36 H MCHC 35 H RDW 17.8 H Seg Neuts % (Manual) 76.0 H Lymphocytes % (Manual) 13.0 L Monocytes % (Manual) Seg Neutrophils # Man 7.9 H Lymphocytes # (Manual) Monocytes # (Manual) PT INR APTT Sodium 129 L Potassium 2.3 L* D Chloride 88.6 L BUN 6 L Creatinine < 0.2 L Glucose 122 H POC Glucose Lactic Acid Calcium 7.4 L Magnesium Total Bilirubin 15.20 H Direct Bilirubin 11.2 H AST 87 H Alkaline Phosphatase 252 H Total Protein 5.8 L Albumin 2.3 L Urine WBC (Auto) 11.0 H U Epithel Cells (Auto) 39.0 H 01/01/19 01/01/19 01/01/19 22:51 22:51 22:51 WBC RBC MCV MCH MCHC RDW Seg Neuts % (Manual) Lymphocytes % (Manual) Monocytes % (Manual) Seg Neutrophils # Man Lymphocytes # (Manual) Monocytes # (Manual) PT 20.8 H INR 1.83 H APTT 47.2 H Sodium Potassium Chloride BUN Creatinine Glucose POC Glucose Lactic Acid 2.50 H* Calcium Magnesium 1.50 L Total Bilirubin Direct Bilirubin AST Alkaline Phosphatase Total Protein Albumin Urine WBC (Auto) U Epithel Cells (Auto) 01/02/19 01/02/19 01/02/19 04:27 04:27 08:50 WBC 17.4 H RBC 3.55 L MCV 101 H MCH 34 H MCHC RDW 17.3 H Seg Neuts % (Manual) 78.0 H Lymphocytes % (Manual) 2.0 L Monocytes % (Manual) 15.0 H Seg Neutrophils # Man 13.6 H Lymphocytes # (Manual) 0.3 L Monocytes # (Manual) 2.6 H PT INR APTT Sodium 131 L Potassium 2.7 L* Chloride 95.7 L BUN 5 L Creatinine < 0.2 L Glucose 133 H POC Glucose 126 H Lactic Acid Calcium 7.0 L Magnesium Total Bilirubin Direct Bilirubin AST Alkaline Phosphatase Total Protein Albumin Urine WBC (Auto) U Epithel Cells (Auto) 01/02/19 01/03/19 01/03/19 14:25 04:20 04:20 WBC RBC 3.23 L MCV 102 H MCH 35 H MCHC RDW 17.8 H Seg Neuts % (Manual) Lymphocytes % (Manual) Monocytes % (Manual) Seg Neutrophils # Man Lymphocytes # (Manual) Monocytes # (Manual) PT INR APTT Sodium 131 L 132 L Potassium 3.5 L D 3.2 L Chloride BUN 4 L 4 L Creatinine < 0.2 L < 0.2 L Glucose 119 H 105 H POC Glucose Lactic Acid Calcium 7.2 L 7.4 L Magnesium Total Bilirubin 13.70 H 13.10 H Direct Bilirubin AST 84 H 79 H Alkaline Phosphatase 248 H 223 H Total Protein 5.7 L 5.5 L Albumin 2.1 L 1.8 L Urine WBC (Auto) U Epithel Cells (Auto) 01/04/19 01/04/19 01/04/19 06:19 06:19 06:19 WBC RBC 3.26 L MCV 103 H MCH 35 H MCHC RDW 17.6 H Seg Neuts % (Manual) Lymphocytes % (Manual) Monocytes % (Manual) Seg Neutrophils # Man Lymphocytes # (Manual) Monocytes # (Manual) PT 22.2 H INR 1.99 H APTT Sodium 132 L Potassium Chloride BUN 4 L Creatinine < 0.2 L Glucose POC Glucose Lactic Acid Calcium 7.9 L Magnesium Total Bilirubin 13.00 H Direct Bilirubin AST 82 H Alkaline Phosphatase 210 H Total Protein 5.5 L Albumin 1.9 L Urine WBC (Auto) U Epithel Cells (Auto) 01/05/19 01/05/19 10:55 10:55 WBC RBC MCV MCH MCHC RDW Seg Neuts % (Manual) Lymphocytes % (Manual) Monocytes % (Manual) Seg Neutrophils # Man Lymphocytes # (Manual) Monocytes # (Manual) PT 23.4 H INR 2.13 H APTT Sodium 132 L Potassium Chloride 97.6 L BUN 4 L Creatinine < 0.2 L Glucose 101 H POC Glucose Lactic Acid Calcium 7.9 L Magnesium Total Bilirubin 14.00 H Direct Bilirubin AST 71 H Alkaline Phosphatase 218 H Total Protein 5.8 L Albumin 2.1 L Urine WBC (Auto) U Epithel Cells (Auto) Chest x-ray: report reviewed (Reported no acute cardiopulmonary findings.), image reviewed Allied health notes reviewed: nursing
[2019-01-06] MEDS: MORPHINE IV PRN ×2 (03:10→09:35)
[2019-01-06] MEDS: FLAGYL PO SCH ×2 (05:42→14:06)
[2019-01-06 08:01] LABS: INR 2.02 (0.87-1.13)
[2019-01-06] MEDS: ROCEPHIN/NS 1 GM/50 ML 1 GM/50 ML BAG IV SCH (09:35)
[2019-01-06] MEDS: SODIUM CHLORIDE FLUSH SYRINGE 10 ML IV SCH (09:36)
--- NOTE | 2019-01-06 11:22 | Discharge Summary ---
Providers - Providers Date of Admission: 01/02/19 01:14 Date of discharge: 01/06/19 Attending physician: CAROLINE LIGHT 01/01/19 22:22 Consult to Physician [CONS] Urgent Comment: Consulting Provider: WHIT ASTORGA Physician Instructions: Reason For Exam: cirrhosis 01/01/19 22:32 Consult to Case Management [CONS] Routine Services Needed at Discharge: Other Notified:: copy given to CM Comment:: evaluate for hospice 01/02/19 01:07 Consult to Physician [CONS] Urgent Comment: Consulting Provider: MAGDALENA CANCINO Physician Instructions: Reason For Exam: hypotension 01/03/19 10:46 Midline [Consult to PICC Line RN] [CONS] Routine Reason For Exam: access Type Line:: Midline [facility] Condition[facility] Hospital course: Patient is 48 year old woman history of alcohol cirrhosis, depression, anxiety, psoriasis, portal hypertension, psoriasis, hard of hearing was admitted to the hospital on December 25, she left AGAINST MEDICAL ADVICE on the . Patient was treated for colitis, enteritis among others. After leaving here, she was taken to a hospital where she stayed for one day. She does not know what medication she was discharged on. Patient stated that her abdomen is more distended, she has lower extremity edema. Still complaining of left lower quadrant pain. Patient was started on Rocephin, Flagyl, she became hypotensive in the ER and was started on Levophed drip and admitted to the ICU, subsequently transfered to medsurg unit following liberation from the pressors. She imprroved, stable and discharged home on 01/06/19. alcoholic cirrhosis with ascites Decompensated Cirrhosis with MELD SCORE OF 27 on 01/01 Vasogenic shock now resolved Colitis/enteritis hyponatremia Hypokalemia Severe protein calorie Malnutrition Coagulopathy Depression Psoriasis Anxiety Portal hypertension with varices PLAN Patient is status POST ultrasound-guided paracentesi GI input is noted, patient with overal poor prognosis and is not currently not a liver transplant candidate due to non-compliance and alcohol consumption, however denies any further ETOH since prior d/c Continue to avoid avoid opiates and other hepatotoxic meds Must be complaint with follow up. Pt verbalized understandin Vit K given for coagulopathy. No active acute bleeding Total time spent on discharge, 37 mins Disposition: DC/TX-06 HOME UNDER HOME HLTH - Discharge Diagnoses (1) Ascites Status: Acute Qualifiers: Ascites type: due to alcoholic cirrhosis Qualified Code(s): K70.31 - Alcoholic cirrhosis of liver with ascites (2) Cirrhosis of liver Status: Acute Qualifiers: Hepatic cirrhosis type: alcoholic cirrhosis Ascites presence: with ascites Qualified Code(s): K70.31 - Alcoholic cirrhosis of liver with ascites (3) Coagulopathy Status: Acute (4) Thrombocytopenia Status: Acute (5) Alcohol abuse Status: Chronic (6) Alcoholic cirrhosis of liver with ascites Status: Chronic (7) Malnutrition Status: Chronic (8) Portal hypertension Status: Acute (9) Esophageal varices Status: Acute (10) Shock Status: Acute Core Measure Documentation - Palliative Care Palliative Care/ Comfort Measures: Not Applicable - Core Measures Any of the following diagnoses?: none Exam - Constitutional Vitals: Temp Pulse Resp BP Pulse Ox 98.1 F 91 H 22 120/73 96 01/06/19 07:02 01/06/19 07:02 01/06/19 09:35 01/06/19 07:02 01/06/19 07:02 Plan Activity: advance as tolerated Diet: low fat, low salt Additional Instructions: 1.Follow up with PCP in 1 week. 2.Follow up with NORMA Littlejohn in 1 week [facility] [Primary Care Provider] - 3-5 Days
--- NOTE | 2019-01-06 11:22 | Gastroenterology Progress Note ---
<PATRICK MEDRANO - Last Filed: 01/06/19 11:18> Assessment and Plan 1.alcoholic cirrhosis with ascites -afebrile -WBC WNL -H/H WNL -INR 2.02-trending down -LFTs-T.jolly 14.00, AST 71, ALT 31, alk phos 218 -etiology-decompensated cirrhosis 2/2 ETOH with ascites -no active signs of bleeding or encephalopathy upon exam. Tolerating diet. -ascites-recommend LVP PRN-s/p paracentesis 01/03 with 3.2L removed; no evidence of SBP -no recommendations for diuretics at this time given low BP, will consider in the future if able to tolerate -continue low sodium diet -avoid opiates and other hepatotoxic meds -continued alcohol cessation discussed/encouraged with patient -continue to trend labs and supportive care -MELD as of 01/01 = 27 (she was previously treated with steroids earlier this month) which carries with it overall poor prognosis- currently not a liver transplant candidate due to non-compliance and alcohol consumption (however denies any further ETOH since prior d/c); patient evaluated by hospice, however she refused -no further recommendations per GI standpoint at this time -okay to d/c patient with f/u in clinic in ~2 weeks- importance of f/u discussed with patient with understanding voiced -will sign off, please call if needed Subjective Date of service: 01/06/19 Principal diagnosis: cirrhosis Interval history: No acute distress. Objective - Constitutional Vitals: Temp Pulse Resp BP Pulse Ox 98.1 F 91 H 22 120/73 96 01/06/19 07:02 01/06/19 07:02 01/06/19 09:35 01/06/19 07:02 01/06/19 07:02 General appearance: no acute distress - Respiratory Respiratory effort: normal - Cardiovascular Rhythm: regular - Gastrointestinal General gastrointestinal: Present: soft, non-tender, distended (slight (ascites)), normal bowel sounds - Neurologic Neurological: alert and oriented x3 - Labs CBC & Chem 7: 01/04/19 06:19 01/05/19 10:55 Labs: Laboratory Results - last 24 hr 01/05/19 01/05/19 01/06/19 10:55 10:55 07:23 PT 23.4 H 22.4 H INR 2.13 H 2.02 H Sodium 132 L Potassium 4.0 Chloride 97.6 L Carbon Dioxide 23 Anion Gap 15 BUN 4 L Creatinine < 0.2 L Estimated GFR > 60 BUN/Creatinine Ratio 20 Glucose 101 H Calcium 7.9 L Total Bilirubin 14.00 H AST 71 H ALT 31 Alkaline Phosphatase 218 H Total Protein 5.8 L Albumin 2.1 L Albumin/Globulin Ratio 0.6 <SELENE SALAS - Last Filed: 01/06/19 23:11> Assessment and Plan Patient seen and examined. I agree with the advanced practitioner's assessment and plan with the following additions: patient not clinically worsening so only therapy is nutrition support and avoidi ng infection and complete EtOh abstinence. Will sign off - Patient Problems (1) Elevated LFTs Onset Date: 04/29/14 Status: Acute (2) History of alcohol abuse Status: Acute (3) Hypokalemia Status: Acute (4) Cirrhosis of liver Status: Acute Qualifiers: Hepatic cirrhosis type: alcoholic cirrhosis Ascites presence: with ascites Qualified Code(s): K70.31 - Alcoholic cirrhosis of liver with ascites (5) Alcoholic cirrhosis of liver with ascites Status: Chronic Objective - Constitutional Vitals: Temp Pulse Resp BP Pulse Ox 98.4 F 81 16 98/68 95 01/06/19 12:08 01/06/19 12:08 01/06/19 14:09 01/06/19 12:08 01/06/19 12:08 - Labs CBC & Chem 7: 01/04/19 06:19 01/05/19 10:55 Labs: Laboratory Results - last 24 hr 01/06/19 07:23 PT 22.4 H INR 2.02 H
[2019-01-06 12:11] VITALS: BP 98/68
[2019-01-06] MEDS: ULTRAM PO PRN (14:06)
[2019-01-07 07:09] LABS: LDH,Body Fluid 15
== END 2019-01-06 15:05 | disposition home health service (06) | DRG 432 ==
LOC: ED 20:53 → CC1 01-02 01:14 → 3A 01-03 13:25
PROVIDERS: ADMIT Internal Medicine; ATTEND Internal Medicine
PROC: 3E0A3GC Introduction of Other Therapeutic Substance into Bone Marrow, Percutaneous Approach (ICD-10-PCS; 2019-01-01)
PROC: 0YHH33Z Insertion of Infusion Device into Right Lower Leg, Percutaneous Approach (ICD-10-PCS; 2019-01-01)
PROC: 0W9G3ZZ Drainage of Peritoneal Cavity, Percutaneous Approach (ICD-10-PCS; principal; 2019-01-03)
DX: K70.31 Alcoholic cirrhosis of liver with ascites (principal); E43 Unspecified severe protein-calorie malnutrition; R57.8 Other shock; K72.90 Hepatic failure, unspecified without coma; I95.9 Hypotension, unspecified; D68.9 Coagulation defect, unspecified; E87.1 Hypo-osmolality and hyponatremia; K52.9 Noninfective gastroenteritis and colitis, unspecified; K76.6 Portal hypertension; I85.10 Secondary esophageal varices without bleeding; F17.210 Nicotine dependence, cigarettes, uncomplicated; F41.9 Anxiety disorder, unspecified; F32.9 Major depressive disorder, single episode, unspecified; M19.042 Primary osteoarthritis, left hand; M19.041 Primary osteoarthritis, right hand; Z90.49 Acquired absence of other specified parts of digestive tract; E87.6 Hypokalemia; L40.9 Psoriasis, unspecified; D69.6 Thrombocytopenia, unspecified; Z68.22 Body mass index [BMI] 22.0-22.9, adult
CPT/HCPCS: 36415; 49083; 71046; 74176; 80048; 80053; 80076; 81001; 82140; 82550; 82947; 82962; 83605; 83690; 83735; 85007; 85025; 85027; 85610; 85730; 87040; 87086; 87116; 88112; 88305; 88341; 88342; 89051; 93005; 93010; G0378; J0696; J2270; J2405; J3010; J3430; J3475; J3480; J7040

== ENCOUNTER 2019-01-21 16:02 | Emergency (ER) | payer MEDICAID ==
--- NOTE | 2019-01-21 17:07 | Emergency Department Report ---
Blank Doc - Documentation Documentation: Patient reports stmach pain to side stomach pain 04/28. rapports weakness No urinary symptoms liver DZ, Cirrhosis January 02 and December 25. Elevated Admitted 12/25/2018 for 3 days and 4 days 01/02/2019 to Was at [facility] 4 days ago and had paracenresis and was given antibiotic 01/04/2019 01/04/2019 EFREN .22 last alcohol had a glass of wine urine, labs.
[2019-01-21 17:43] LABS: Basophils # (Auto) 0.1 K/mm3 (0.0-0.1); Basophils % (Auto) 1.2 % (0.0-1.8); Eosinophils # (Auto) 0.2 K/mm3 (0.0-0.4); Hematocrit 31.3 % (30.3-42.9); Hemoglobin 10.8 gm/dl (10.1-14.3); Lymphocytes # (Auto) 1.6 K/mm3 (1.2-5.4); Mean Corpuscular HGB Conc 34 % (30-34); Mean Corpuscular Volume 105 fl (79-97); Monocytes # (Auto) 0.5 K/mm3 (0.0-0.8); Monocytes % (Auto) 8.7 % (0.0-7.3); Platelet Count 105 K/mm3 (140-440); Red Blood Count 2.98 M/mm3 (3.65-5.03)
[2019-01-21 17:53] LABS: INR 1.81 (0.87-1.13)
[2019-01-21 17:54] LABS: Partial Thromboplastin Time 43.4 Sec. (24.2-36.6)
[2019-01-21 18:08] LABS: Alanine Aminotransferase 23 units/L (7-56); Albumin 2.9 g/dL (3.9-5); BUN/Creatinine Ratio 13; Blood Urea Nitrogen 4 mg/dL (7-17); Calcium 8.4 mg/dL (8.4-10.2); Hemolysis Index 10
[2019-01-21] MEDS ORDERED: TORADOL IV ONE (20:13)
[2019-01-21] MEDS ORDERED: BENTYL IM ONE (20:13)
[2019-01-21] MEDS ORDERED: MORPHINE IV ONE (20:13)
[2019-01-21] MEDS ORDERED: PEPCID IV ONE (20:13)
--- NOTE | 2019-01-21 20:41 | Emergency Department Report ---
ED Abdominal Pain HPI - General Chief Complaint: Dizziness Stated Complaint: ABDOMINAL PAIN Time Seen by Provider: 01/21/19 16:58 Source: patient Mode of arrival: Ambulatory Limitations: No Limitations - History of Present Illness Initial Comments: Patient is a 48-year-old female with past history of alcoholic cirrhosis and portal hypertension who is here presenting with some left-sided abdominal pain. Dr Blair's note from her last Dc is as followed: Patient is 48 year old woman history of alcohol cirrhosis, depression, anxiety, psoriasis, portal hypertension, psoriasis, hard of hearing was admitted to the hospital on December 25, she left AGAINST MEDICAL ADVICE on the . Patient was treated for colitis, enteritis among others. After leaving here, she was taken to a hospital where she stayed for one day. She does not know what medication she was discharged on. Patient stated that her abdomen is more distended, she has lower extremity edema. Still complaining of left lower quadrant pain. Patient was started on Rocephin, Flagyl, she became hypotensive in the ER and was started on Levophed drip and admitted to the ICU, [facility] from the pressors. She imprroved, stable and discharged home on 01/06/19. Patient states that she has a home health nurse coming out to see her now.Nurses bent her home just wants. Patient states that she ran out of her pain medications yesterday which is why she believes she is in increased pain. As the pain that she has today is similar to the pain as she had during her last 2 visits is located in the left lower quadrant. Patient also has persistent lower extremity swelling and erythematous rash consistent with psoriasis. Patient denies any nausea vomiting fevers chills, cold congestion it's time. - Related Data Previous Rx's Medication Instructions Recorded Last Taken Type Clobetasol 0.05% [Temovate] 1 applic TP BID #7 tube 12/28/18 Unknown Rx Nadolol [Corgard] 20 mg PO QDAY #30 tablet 12/28/18 Unknown Rx Rifaximin [Xifaxan] 550 mg PO BID #60 tablet 12/28/18 Unknown Rx Thiamine [Vitamin B-1] 100 mg PO QDAY #30 tablet 12/28/18 Unknown Rx prednisoLONE SOD PHOSPHAT [Orapred] 40 mg PO DAILY #5 oral.liqd 12/28/18 Unknown Rx oxyCODONE [roxiCODONE] 5 mg PO Q6HR PRN #12 tablet 01/21/19 Unknown Rx Allergies Allergy/AdvReac Type Severity Reaction Status Date / Time No Known Allergies Allergy Verified 01/21/19 16:47 ED Review of Systems ROS: Stated complaint: ABDOMINAL PAIN Other details as noted in HPI Comment: All other systems reviewed and negative ED Past Medical Hx - Past Medical History Previous Medical History?: Yes Hx Hypertension: Yes Hx Congestive Heart Failure: No Hx Diabetes: No Hx Liver Disease: Yes (CIRRHOSIS) Hx Arthritis: Yes (knees arms hands) Hx Psychiatric Treatment: Yes (anxiety, DEPRESSION) Hx Asthma: No Hx COPD: No Hx HIV: No Additional medical history: psoriasis - Surgical History Past Surgical History?: Yes Hx Appendectomy: Yes Additional Surgical History: - Social History Smoking Status: Former Smoker - Medications Home Medications: Home Medications Medication Instructions Recorded Confirmed Last Taken Type Clobetasol 0.05% [Temovate] 1 applic TP BID #7 tube 12/28/18 01/02/19 Unknown Rx Nadolol [Corgard] 20 mg PO QDAY #30 tablet 12/28/18 01/02/19 Unknown Rx Rifaximin [Xifaxan] 550 mg PO BID #60 tablet 12/28/18 01/02/19 Unknown Rx Thiamine [Vitamin B-1] 100 mg PO QDAY #30 tablet 12/28/18 01/02/19 Unknown Rx prednisoLONE SOD PHOSPHAT [Orapred] 40 mg PO DAILY #5 oral.liqd 12/28/18 01/02/19 Unknown Rx oxyCODONE [roxiCODONE] 5 mg PO Q6HR PRN #12 tablet 01/21/19 Unknown Rx ED Physical Exam - General Limitations: No Limitations General appearance: alert, in no apparent distress - Head Head exam: Present: atraumatic, normocephalic - Eye Eye exam: Present: normal appearance - ENT ENT exam: Present: mucous membranes moist - Neck Neck exam: Present: normal inspection - Respiratory Respiratory exam: Present: normal lung sounds bilaterally. Absent: respiratory distress - Cardiovascular Cardiovascular Exam: Present: regular rate, normal rhythm. Absent: systolic murmur, diastolic murmur, rubs, gallop - GI/Abdominal GI/Abdominal exam: Present: soft, distended, tenderness (llq), normal bowel sounds. Absent: guarding, rebound - Rectal Rectal exam: Present: deferred - Extremities Exam Extremities exam: Present: normal inspection - Back Exam Back exam: Present: normal inspection - Neurological Exam Neurological exam: Present: alert, oriented X3 - Psychiatric Psychiatric exam: Present: normal affect, normal mood - Skin Skin exam: Present: warm, dry, intact, normal color. Absent: rash ED Course Vital Signs 01/21/19 01/21/19 01/21/19 17:00 20:18 20:28 Temperature 98.1 F Pulse Rate 115 H Respiratory 20 15 16 Rate Blood Pressure 112/72 O2 Sat by Pulse 99 98 Oximetry 01/21/19 01/21/19 20:30 20:32 Temperature Pulse Rate 89 Respiratory 17 16 Rate Blood Pressure 107/56 O2 Sat by Pulse 100 Oximetry ED Medical Decision Making - Lab Data Result diagrams: 01/21/19 17:25 01/21/19 17:25 Lab Results 01/21/19 01/21/19 01/21/19 Range/Units 17:25 17:25 17:25 WBC 6.3 (4.5-11.0) K/mm3 RBC 2.98 L (3.65-5.03) M/mm3 Hgb 10.8 (10.1-14.3) gm/dl Hct 31.3 (30.3-42.9) % MCV 105 H (79-97) fl MCH 36 H (28-32) pg MCHC 34 (30-34) % RDW 19.0 H (13.2-15.2) % Plt Count 105 L (140-440) K/mm3 Lymph % (Auto) 26.0 (13.4-35.0) % [place] % (Auto) 8.7 H (0.0-7.3) % Eos % (Auto) 3.0 (0.0-4.3) % Baso % (Auto) 1.2 (0.0-1.8) % Lymph # 1.6 (1.2-5.4) K/mm3 [place] # 0.5 (0.0-0.8) K/mm3 Eos # 0.2 (0.0-0.4) K/mm3 Baso # 0.1 (0.0-0.1) K/mm3 Seg Neutrophils % 61.1 (40.0-70.0) % Seg Neutrophils # 3.8 (1.8-7.7) K/mm3 PT 20.6 H (12.2-14.9) Sec. INR 1.81 H (0.87-1.13) APTT 43.4 H (24.2-36.6) Sec. Sodium 139 (137-145) mmol/L Potassium 3.5 L (3.6-5.0) mmol/L Chloride 105.0 (98-107) mmol/L Carbon Dioxide 21 L (22-30) mmol/L Anion Gap 17 mmol/L BUN 4 L (7-17) mg/dL Creatinine 0.3 L (0.7-1.2) mg/dL Estimated GFR > 60 ml/min BUN/Creatinine Ratio 13 % Glucose 98 (65-100) mg/dL Calcium 8.4 (8.4-10.2) mg/dL Total Bilirubin 5.50 H (0.1-1.2) mg/dL AST 107 H (5-40) units/L ALT 23 (7-56) units/L Alkaline Phosphatase 219 H (35-129) units/L Total Protein 7.3 (6.3-8.2) g/dL Albumin 2.9 L (3.9-5) g/dL Albumin/Globulin Ratio 0.7 % Lipase 65 H (13-60) units/L - Medical Decision Making Patient is a 48-year-old female with history of cirrhosis. Patient is here mainly for pain control. Patient states that she ran out of her oxycodone was prescribed. I did look the patient up in the joint. Pain on January 12 she had 15 oxycodone filled. Patient states that she is not able to see a physician until the beginning of next week. Three-day course of oxycodone and will be prescribed for him to help patient for the next several days. Critical care attestation.: If time is entered above; I have spent that time in minutes in the direct care of this critically ill patient, excluding procedure time. ED Disposition Clinical Impression: Alcoholic cirrhosis of liver with ascites, Psoriasis Alcohol intoxication Qualifiers: Complication of substance-induced condition: uncomplicated Qualified Code(s): F10.920 - Alcohol use, unspecified with intoxication, uncomplicated Chronic pain Qualifiers: Chronic pain type: chronic pain syndrome Qualified Code(s): G89.4 - Chronic pain syndrome Disposition: TO HOME OR SELFCARE Is pt being admited?: No Does the pt Need Aspirin: No Condition: Stable Instructions: Chronic Pain (ED) Prescriptions: oxyCODONE [roxiCODONE] 5 mg PO Q6HR PRN #12 tablet PRN Reason: Pain Referrals: PRIMARY CARE, [Primary Care Provider] - 3-5 Days Time of Disposition: 21:17
[2019-01-21 21:46] VITALS: BP 113/77
== END 2019-01-21 21:47 | disposition home or self-care (01) ==
LOC: ED 16:02
DX: K70.31 Alcoholic cirrhosis of liver with ascites (principal); L40.9 Psoriasis, unspecified; F10.920 Alcohol use, unspecified with intoxication, uncomplicated; G89.29 Other chronic pain; I10 Essential (primary) hypertension; M19.90 Unspecified osteoarthritis, unspecified site; F32.9 Major depressive disorder, single episode, unspecified; F41.9 Anxiety disorder, unspecified; Z87.891 Personal history of nicotine dependence; Z90.49 Acquired absence of other specified parts of digestive tract; Z79.899 Other long term (current) drug therapy
CPT/HCPCS: 36415; 80053; 83690; 85025; 85610; 85730; 96372; 96374; 96375; 99283; G0480; J0500; J1885; J2270; 80320

== ENCOUNTER 2019-02-21 23:40 | Emergency (ER) | payer MEDICAID ==
[2019-02-22 01:45] LABS: Basophils % (Auto) 0.5 % (0.0-1.8); Eosinophils # (Auto) 0.1 K/mm3 (0.0-0.4); Eosinophils % (Auto) 2.3 % (0.0-4.3); Hematocrit 35.8 % (30.3-42.9); Hemoglobin 11.8 gm/dl (10.1-14.3); Lymphocytes # (Auto) 1.5 K/mm3 (1.2-5.4); Mean Corpuscular HGB Conc 33 % (30-34); Mean Corpuscular Volume 105 fl (79-97); Monocytes # (Auto) 0.6 K/mm3 (0.0-0.8); Monocytes % (Auto) 9.6 % (0.0-7.3); Platelet Count 131 K/mm3 (140-440); Red Cell Distribution Width 16.1 % (13.2-15.2)
[2019-02-22 02:06] LABS: Alanine Aminotransferase 12 units/L (7-56); Albumin 2.7 g/dL (3.9-5); BUN/Creatinine Ratio 8; Blood Urea Nitrogen 3 mg/dL (7-17); Calcium 8.4 mg/dL (8.4-10.2); Hemolysis Index 8
[2019-02-22] MEDS ORDERED: SUBLIMAZE IV ONE ×2 (03:03→03:48)
[2019-02-22] MEDS ORDERED: ZOFRAN IV ONE (03:03)
[2019-02-22] MEDS ORDERED: NACL 0.9% 500 ML 500 ML IV ONE (03:03)
--- NOTE | 2019-02-22 03:08 | Emergency Department Report ---
HPI - General Chief Complaint: Abdominal Pain Time Seen by Provider: 02/22/19 02:55 - HPI HPI: Room 5 The patient is a 48-year-old male presenting with a chief complaint of abdominal pain. The patient complains of pain in her left abdomen for 2 weeks. Patient states pain has been intermittent in nature and associated with nausea vomiting and diarrhea. Patient admits to subjective fever. Patient gives her pain a score of 10/10 Location: [See above] Duration: [See above] Quality: [See above] Severity: [See above] Modifying factors: [see above] Context: [see above] Mode of transportation: [not driving] ED Past Medical Hx - Past Medical History Previous Medical History?: Yes Hx Hypertension: Yes Hx Liver Disease: Yes (CIRRHOSIS) Hx Arthritis: Yes (knees arms hands) Hx Psychiatric Treatment: Yes (anxiety, DEPRESSION) Additional medical history: psoriasis - Surgical History Past Surgical History?: Yes Hx Appendectomy: Yes Additional Surgical History: - Family History Family history: no significant - Social History Smoking Status: Current Some Day Smoker (occasional) Substance Use Type: None (denies illicit drug use) - Medications Home Medications: Home Medications Medication Instructions Recorded Confirmed Last Taken Type Clobetasol 0.05% [Temovate] 1 applic TP BID #7 tube 12/28/18 01/02/19 Unknown Rx Nadolol [Corgard] 20 mg PO QDAY #30 tablet 12/28/18 01/02/19 Unknown Rx Rifaximin [Xifaxan] 550 mg PO BID #60 tablet 12/28/18 01/02/19 Unknown Rx Thiamine [Vitamin B-1] 100 mg PO QDAY #30 tablet 12/28/18 01/02/19 Unknown Rx prednisoLONE SOD PHOSPHAT [Orapred] 40 mg PO DAILY #5 oral.liqd 12/28/18 01/02/19 Unknown Rx oxyCODONE [roxiCODONE] 5 mg PO Q6HR PRN #12 tablet 01/21/19 Unknown Rx HYDROcodone/APAP 5-325 [[place] 1 - 2 each PO Q6HR PRN #10 tablet 02/22/19 Unknown Rx 5/325] ED Review of Systems ROS: Stated complaint: ABDOMINAL PAIN Other details as noted in HPI Constitutional: fever Eyes: denies: eye pain ENT: denies: throat pain Respiratory: no symptoms reported Cardiovascular: denies: chest pain Endocrine: no symptoms reported Gastrointestinal: abdominal pain, nausea, vomiting, diarrhea Genitourinary: denies: dysuria Musculoskeletal: denies: back pain Neurological: denies: headache Physical Exam - Physical Exam Vital Signs: Vital Signs 02/22/19 02/22/19 00:39 03:00 Temperature 98.8 F 98.2 F Pulse Rate 110 H 107 H Respiratory 20 15 Rate Blood Pressure 102/68 Blood Pressure 103/68 [Left] O2 Sat by Pulse 98 100 Oximetry Physical Exam: GENERAL: The patient is well-developed well-nourished female lying on stretcher appearing to be in mild discomfort. [] HEENT: Normocephalic. Atraumatic. Extraocular motions are intact. Patient has moist mucous membranes. NECK: Supple. Trachea midline CHEST/LUNGS: Clear to auscultation. There is no respiratory distress noted. HEART/CARDIOVASCULAR: Regular. There is no tachycardia. There is no gallop rub or murmur. ABDOMEN: Abdomen is soft, with tenderness to palpation in the left lower quadrant and there is no rebound or guarding. Patient has normal bowel sounds. SKIN: There is no rash. There is no edema. There is no diaphoresis. NEURO: The patient is awake, alert, and oriented. The patient is cooperative. The patient has normal speech MUSCULOSKELETAL: There is no evidence of acute injury. ED Course Vital Signs 02/22/19 02/22/19 00:39 03:00 Temperature 98.8 F 98.2 F Pulse Rate 110 H 107 H Respiratory 20 15 Rate Blood Pressure 102/68 Blood Pressure 103/68 [Left] O2 Sat by Pulse 98 100 Oximetry ED Medical Decision Making - Lab Data Result diagrams: 02/22/19 01:14 02/22/19 01:14 - Radiology Data Radiology results: report reviewed (CT abdomen and pelvis), image reviewed (CT abdomen and pelvis) [facility] [address] [place] [address] Cat Scan Report Signed Patient: MAGY IYER MR#: [id number] : 1970 Acct:[id number] Age/Sex: 48 / F ADM Date: 02/21/19 Loc: ED Attending Dr: Ordering Physician: JERRY DE LA FUENTE MD Date of Service: 08/06/19 Procedure(s): CT abdomen pelvis w con Accession Number(s): [id number] cc: JERRY DE LA FUENTE MD CT of the abdomen and pelvis with contrast INDICATION: Left-sided abdominal pain today COMPARISON: 01/01/2019 FINDINGS: Lung bases are clear. Evidence of cirrhosis is again seen with mixed attenuation of the liver probably due to nodular regeneration or atypical fatty infiltration. Spleen is prominent but unchanged. The pancreas, adrenal glands and kidneys show no significant abnormalities. There are varices present with moderate ascites. These findings are essentially unchanged from July although the amount of ascites has increased. CT of the pelvis shows no bowel obstruction. Multiple varices are seen over the abdominal wall with a ventral hernia containing fat and varices both. Moderate pelvic ascites is seen. There is no uterine or adnexal mass. There is slight sigmoid diverticulosis without diverticulitis. Wall thickening is seen. Be chronic. There is no bowel obstruction. IMPRESSION: Findings of cirrhosis and portal hyper tension. There is some increasing ascites since the December study. No definite acute inflammatory process seen. Automated exposure control was utilized to diminish radiation dose. Signer Name: Deric Jasso MD Signed: 02/22/2019 4:06 AM Workstation Name: [id number] Transcribed By: MAURICIO Dictated By: Deric Jasso MD Electronically Authenticated By: Deric Jasso MD Signed Date/Time: 02/22/19405 DD/ 1 TD/TT: - Differential Diagnosis diverticulitis, gastritis, gastroenteritis, partial small bowel obstruction Critical care attestation.: If time is entered above; I have spent that time in minutes in the direct care of this critically ill patient, excluding procedure time. ED Disposition Clinical Impression: Acute abdominal pain, Cirrhosis of liver Disposition: DC-01 TO HOME OR SELFCARE Is pt being admited?: No Does the pt Need Aspirin: No Condition: Stable Instructions: Abdominal Pain (ED) Additional Instructions: Return to the emergency department immediately should you develop worsening symptoms, fever, inability to tolerate food or liquid or any other concerns. Prescriptions: HYDROcodone/APAP 5-325 [[place] 5/325] 1 - 2 each PO Q6HR PRN #10 tablet PRN Reason: Pain Referrals: NACHO YU MD [Primary Care Provider] - 3-5 Days LISA SIFUENTES MD [Staff Physician] - 3-5 Days Time of Disposition: 04:21
[2019-02-22] MEDS ORDERED: PEPCID IV ONE (03:35)
[2019-02-22] MEDS ORDERED: SOLU-Medrol IV ONE (03:35)
[2019-02-22] MEDS ORDERED: BENADRYL IV ONE (03:35)
--- NOTE | 2019-02-22 04:10 | Cat Scan Report ---
CT of the abdomen and pelvis with contrast INDICATION: Left-sided abdominal pain today COMPARISON: 01/01/2019 FINDINGS: Lung bases are clear. Evidence of cirrhosis is again seen with mixed attenuation of the haja er probably due to nodular regeneration or atypical fatty infiltration. Spleen is prominent but uncha nged. The pancreas, adrenal glands and kidneys show no significant abnormalities. There are varices p resent with moderate ascites. These findings are essentially unchanged from July although the amou nt of ascites has increased. CT of the pelvis shows no bowel obstruction. Multiple varices are seen over the abdominal wall with a ventral hernia containing fat and varices both. Moderate pelvic ascites is seen. There is no uterine or adnexal mass. There is slight sigmoid diverticulosis without diverticulitis. Wall thickening is s een. Be chronic. There is no bowel obstruction. IMPRESSION: Findings of cirrhosis and portal hyper tension. There is some increasing ascites since december study. No definite acute inflammatory process seen. Automated exposure control was utilized to diminish radiation dose. Signer Name: Deric Jasso MD Signed: 02/22/2019 4:06 AM Workstation Name: [id number]
[2019-02-22] MEDS ORDERED: NORCO 5/325 PO ONE (05:23)
[2019-02-22 05:51] LABS: Bacteria,Urine 1+ /HPF (Negative); Bilirubin,Urine NEG (Negative); Blood,Urine SM (Negative); Color,Urine Yellow (Yellow); Mucus,Urine FEW /HPF; Protein,Urine <15 mg/dL mg/dL (Negative); Urobilinogen,Urine < 2.0 mg/dL (<2.0)
[2019-02-22 07:20] VITALS: BP 106/63
== END 2019-02-22 07:21 | disposition home or self-care (01) ==
LOC: ED 23:40
DX: K74.60 Unspecified cirrhosis of liver (principal); I10 Essential (primary) hypertension; M19.90 Unspecified osteoarthritis, unspecified site; F32.9 Major depressive disorder, single episode, unspecified; F41.9 Anxiety disorder, unspecified; L40.9 Psoriasis, unspecified; F17.200 Nicotine dependence, unspecified, uncomplicated; Z90.49 Acquired absence of other specified parts of digestive tract; Z79.899 Other long term (current) drug therapy
CPT/HCPCS: 36415; 74177; 80053; 81001; 82140; 83690; 85025; 96361; 96374; 96375; 96376; 99284; J1200; J2405; J2930; J3010; J7040; Q9967

== ENCOUNTER 2019-07-02 15:27 | Inpatient (IN) | payer MEDICAID ==
--- NOTE | 2019-07-02 15:56 | Event Note ---
ED Screening Note Date of service: 07/02/19 Time: 15:51 ED Screening Note: This is a 49 y.o. F. that presents to the ER with LLE swelling and pain for 2 days. This initial assessment/diagnostic orders/clinical plan/treatment(s) is/are subject to change based on patients health status, clinical progression and re- assessment by fellow clinical providers in the ED. Further treatment and workup at subsequent clinical providers discretion. Patient/guardian urged not to elope from the ED as their condition may be serious if not clinically assessed and managed. Initial orders include:
--- NOTE | 2019-07-02 17:39 | Vascular Lab Report ---
DUPLEX DOPPLER LOWER EXTREMITY VEINS, LEFT INDICATION / CLINICAL INFORMATION: LLE pain and swelling, r/o dvt. TECHNIQUE: Duplex doppler imaging was performed through the veins of the left lower extremity using venous compr ession and other maneuvers. COMPARISON: None available. FINDINGS: COMMON FEMORAL VEIN: Negative. FEMORAL VEIN: Negative. POPLITEAL VEIN: Negative. CALF VEINS: Negative. ADDITIONAL FINDINGS: Mild soft tissue edema is seen in the lower extremity. IMPRESSION: 1. No sonographic evidence for DVT in the left lower extremity. 2. Mild distal soft tissue edema. Signer Name: Fara Tanner MD Signed: 07/02/2019 5:35 PM Workstation Name: [id number]
[2019-07-02] MEDS ORDERED: KETOROLAC 30 MG/1 ML INJ IV ONE (21:19)
[2019-07-02] MEDS ORDERED: SODIUM CHLORIDE 0.9% 1000 ML 1,000 ML IV ONE (21:19)
[2019-07-02] MEDS ORDERED: HYDROmorphone 1 MG/1 ML INJ IV ONE (21:19)
[2019-07-02] MEDS ORDERED: ONDANSETRON 4 MG/2 ML INJ IV ONE (21:19)
[2019-07-02] MEDS ORDERED: CLINDAMYCIN 600 MG/50 mL 600 MG/50 ML BAG IV ONE (21:20)
--- NOTE | 2019-07-02 21:39 | Emergency Department Report ---
Chief Complaint: Extremity Injury, Lower Stated Complaint: LEG SWELLING/PAIN Time Seen by Provider: 07/02/19 15:51 - Exam Vital Signs: Vital Signs 07/02/19 07/02/19 15:51 20:21 Temperature 97.5 F L 97.5 F L Pulse Rate 98 H 89 Respiratory 16 18 Rate Blood Pressure 107/70 100/61 [Left] O2 Sat by Pulse 98 100 Oximetry MSE screening note: Focused history and physical exam performed. Due to findings the following was ordered: ED Disposition for MSE Condition: Stable Referrals: PRIMARY CARE, [Primary Care Provider] - 3-5 Days
[2019-07-02 21:55] LABS: Basophils % (Auto) 0.3 % (0.0-1.8); Eosinophils # (Auto) 0.1 K/mm3 (0.0-0.4); Eosinophils % (Auto) 0.8 % (0.0-4.3); Hematocrit 36.2 % (30.3-42.9); Hemoglobin 11.9 gm/dl (10.1-14.3); Lymphocytes # (Auto) 0.9 K/mm3 (1.2-5.4); Lymphocytes % (Auto) 10.3 % (13.4-35.0); Mean Corpuscular HGB Conc 33 % (30-34); Mean Corpuscular Volume 88 fl (79-97); Monocytes # (Auto) 0.8 K/mm3 (0.0-0.8); Monocytes % (Auto) 8.5 % (0.0-7.3); Red Blood Count 4.09 M/mm3 (3.65-5.03); Red Cell Distribution Width 17.4 % (13.2-15.2)
[2019-07-02 22:08] LABS: INR 1.44 (0.87-1.13)
[2019-07-02 22:09] LABS: Partial Thromboplastin Time 39.7 Sec. (24.2-36.6)
[2019-07-02 22:24] LABS: Alanine Aminotransferase 14 units/L (7-56); Albumin 3.2 g/dL (3.9-5); BUN/Creatinine Ratio 20; Blood Urea Nitrogen 8 mg/dL (7-17); Calcium 8.1 mg/dL (8.4-10.2); Hemolysis Index 19
[2019-07-02 23:37] LABS: Platelet Count 83 K/mm3 (140-440)
[2019-07-03] MEDS ORDERED: SODIUM CHLORIDE 0.9% 1000 ML 1,000 ML IV ONE (00:07)
[2019-07-03] MEDS ORDERED: POTASSIUM CHLORIDE ER 20 MEQ TAB PO ONE ×2 (00:07→09:09)
--- NOTE | 2019-07-03 00:51 | Emergency Department Report ---
ED Extremity Problem HPI - General Chief complaint: Extremity Injury, Lower Stated complaint: LEG SWELLING/PAIN Time Seen by Provider: 07/02/19 15:51 Source: patient, EMS Mode of arrival: Stretcher Limitations: Physical Limitation - History of Present Illness Initial comments: 49-year-old female with a past medical history of hypertension, cirrhosis, and psoriasis presents to the hospital complaining of left leg pain 3 days. Patient complains of left leg pain and swelling for the past 3 days with inability to ambulate. She is also having nausea vomiting with decreased by mouth intake. Patient complains subjective fevers at home but afebrile here. Pain is constant and worse with palpation and movement. Severity scale (0 -10): 6 - Related Data Previous Rx's Medication Instructions Recorded Last Taken Type Clobetasol 0.05% [Temovate] 1 applic TP BID #7 tube 12/28/18 Unknown Rx Nadolol [Corgard] 20 mg PO QDAY #30 tablet 12/28/18 Unknown Rx Rifaximin [Xifaxan] 550 mg PO BID #60 tablet 12/28/18 Unknown Rx Thiamine [Vitamin B-1] 100 mg PO QDAY #30 tablet 12/28/18 Unknown Rx prednisoLONE SOD PHOSPHAT [Orapred] 40 mg PO DAILY #5 oral.liqd 12/28/18 Unknown Rx oxyCODONE [roxiCODONE] 5 mg PO Q6HR PRN #12 tablet 01/21/19 Unknown Rx HYDROcodone/APAP 5-325 [[place] 1 - 2 each PO Q6HR PRN #10 tablet 02/22/19 Unknown Rx 5/325] Allergies Allergy/AdvReac Type Severity Reaction Status Date / Time No Known Allergies Allergy Verified 01/21/19 16:47 ED Review of Systems ROS: Stated complaint: LEG SWELLING/PAIN Other details as noted in HPI Comment: All other systems reviewed and negative ED Past Medical Hx - Past Medical History Hx Hypertension: Yes Hx Congestive Heart Failure: No Hx Diabetes: No Hx Liver Disease: Yes (CIRRHOSIS) Hx Arthritis: Yes (knees arms hands) Hx Psychiatric Treatment: Yes (anxiety, DEPRESSION) Hx Asthma: No Hx COPD: No Hx HIV: No Additional medical history: psoriasis - Surgical History Hx Appendectomy: Yes Additional Surgical History: - Social History Smoking Status: Never Smoker Substance Use Type: None - Medications Home Medications: Home Medications Medication Instructions Recorded Confirmed Last Taken Type Clobetasol 0.05% [Temovate] 1 applic TP BID #7 tube 12/28/18 01/02/19 Unknown Rx Nadolol [Corgard] 20 mg PO QDAY #30 tablet 12/28/18 01/02/19 Unknown Rx Rifaximin [Xifaxan] 550 mg PO BID #60 tablet 12/28/18 01/02/19 Unknown Rx Thiamine [Vitamin B-1] 100 mg PO QDAY #30 tablet 12/28/18 01/02/19 Unknown Rx prednisoLONE SOD PHOSPHAT [Orapred] 40 mg PO DAILY #5 oral.liqd 12/28/18 01/02/19 Unknown Rx oxyCODONE [roxiCODONE] 5 mg PO Q6HR PRN #12 tablet 01/21/19 Unknown Rx HYDROcodone/APAP 5-325 [[place] 1 - 2 each PO Q6HR PRN #10 tablet 02/22/19 Unknown Rx 5/325] ED Physical Exam - General Limitations: Physical Limitation - Other Other exam information: General: No acute distress Head: Atraumatic Eyes: normal appearance ENT: Moist mucous membranes Neck: Normal appearance, no midline tenderness Chest: Clear to auscultation bilaterally CV: Regular rate and rhythm Abdomen: Soft, normal bowel sounds, nontender, nondistended, no rebound or guarding Back: Normal inspection Extremity: Left pitting edema compared to the right with superficial skin wounds/psoriatic rashes. Patient has erythema and warmth of the skin from the distal lower legs all the way up to the proximal thigh. 2+ DP pulse. Full range of motion Neuro: Alert O x 3, no facial asymmetry, speech clear, no gross motor sensory deficit Psych: Appropriate behavior Skin: Scattered psoriatic rash ED Course Vital Signs 07/02/19 07/02/19 15:51 20:21 Temperature 97.5 F L 97.5 F L Pulse Rate 98 H 89 Respiratory 16 18 Rate Blood Pressure 107/70 100/61 [Left] O2 Sat by Pulse 98 100 Oximetry ED Medical Decision Making - Lab Data Result diagrams: 07/02/19 21:41 07/02/19 21:41 Lab Results 07/02/19 07/02/19 07/02/19 Range/Units 21:41 21:41 21:41 WBC 8.8 (4.5-11.0) K/mm3 RBC 4.09 (3.65-5.03) M/mm3 Hgb 11.9 (10.1-14.3) gm/dl Hct 36.2 (30.3-42.9) % MCV 88 (79-97) fl MCH 29 (28-32) pg MCHC 33 (30-34) % RDW 17.4 H (13.2-15.2) % Plt Count 83 L (140-440) K/mm3 Lymph % (Auto) 10.3 L (13.4-35.0) % [place] % (Auto) 8.5 H (0.0-7.3) % Eos % (Auto) 0.8 (0.0-4.3) % Baso % (Auto) 0.3 (0.0-1.8) % Lymph # 0.9 L (1.2-5.4) K/mm3 [place] # 0.8 (0.0-0.8) K/mm3 Eos # 0.1 (0.0-0.4) K/mm3 Baso # 0.0 (0.0-0.1) K/mm3 Seg Neutrophils % 80.1 H (40.0-70.0) % Seg Neutrophils # 7.1 (1.8-7.7) K/mm3 PT (12.2-14.9) Sec. INR (0.87-1.13) APTT (24.2-36.6) Sec. Sodium 126 L (137-145) mmol/L Potassium 2.8 L* (3.6-5.0) mmol/L Chloride 93.2 L (98-107) mmol/L Carbon Dioxide 21 L (22-30) mmol/L Anion Gap 15 mmol/L BUN 8 (7-17) mg/dL Creatinine 0.4 L (0.7-1.2) mg/dL Estimated GFR > 60 ml/min BUN/Creatinine Ratio 20 % Glucose 121 H (65-100) mg/dL Lactic Acid 2.20 H* (0.7-2.0) mmol/L Calcium 8.1 L (8.4-10.2) mg/dL Magnesium (1.7-2.3) mg/dL Total Bilirubin 1.80 H (0.1-1.2) mg/dL AST 36 (5-40) units/L ALT 14 (7-56) units/L Alkaline Phosphatase 129 (35-129) units/L Total Protein 7.0 (6.3-8.2) g/dL Albumin 3.2 L (3.9-5) g/dL Albumin/Globulin Ratio 0.8 % 07/02/19 07/02/19 07/03/19 Range/Units 21:41 23:52 00:09 WBC (4.5-11.0) K/mm3 RBC (3.65-5.03) M/mm3 Hgb (10.1-14.3) gm/dl Hct (30.3-42.9) % MCV (79-97) fl MCH (28-32) pg MCHC (30-34) % RDW (13.2-15.2) % Plt Count (140-440) K/mm3 Lymph % (Auto) (13.4-35.0) % [place] % (Auto) (0.0-7.3) % Eos % (Auto) (0.0-4.3) % Baso % (Auto) (0.0-1.8) % Lymph # (1.2-5.4) K/mm3 [place] # (0.0-0.8) K/mm3 Eos # (0.0-0.4) K/mm3 Baso # (0.0-0.1) K/mm3 Seg Neutrophils % (40.0-70.0) % Seg Neutrophils # (1.8-7.7) K/mm3 PT 17.8 H (12.2-14.9) Sec. INR 1.44 H (0.87-1.13) APTT 39.7 H (24.2-36.6) Sec. Sodium (137-145) mmol/L Potassium (3.6-5.0) mmol/L Chloride (98-107) mmol/L Carbon Dioxide (22-30) mmol/L Anion Gap mmol/L BUN (7-17) mg/dL Creatinine (0.7-1.2) mg/dL Estimated GFR ml/min BUN/Creatinine Ratio % Glucose (65-100) mg/dL Lactic Acid 1.40 (0.7-2.0) mmol/L Calcium (8.4-10.2) mg/dL Magnesium 1.90 (1.7-2.3) mg/dL Total Bilirubin (0.1-1.2) mg/dL AST (5-40) units/L ALT (7-56) units/L Alkaline Phosphatase (35-129) units/L Total Protein (6.3-8.2) g/dL Albumin (3.9-5) g/dL Albumin/Globulin Ratio % - Radiology Data Radiology results: report reviewed DUPLEX DOPPLER LOWER EXTREMITY VEINS, LEFT INDICATION / CLINICAL INFORMATION: LLE pain and swelling, r/o dvt. TECHNIQUE: Duplex doppler imaging was performed through the veins of the left lower extremity using venous compression and other maneuvers. COMPARISON: None available. FINDINGS: COMMON FEMORAL VEIN: Negative. FEMORAL VEIN: Negative. POPLITEAL VEIN: Negative. CALF VEINS: Negative. ADDITIONAL FINDINGS: Mild soft tissue edema is seen in the lower extremity. IMPRESSION: 1. No sonographic evidence for DVT in the left lower extremity. 2. Mild distal soft tissue edema. - Medical Decision Making Patient presents to the hospital significant left leg cellulitis. Received clindamycin in the ED blood cultures pending. Initial elevation or lactic acid improved with IV fluids. By mouth potassium provided for hypokalemia potassium is normal. Pain medication in the ED per will be admitted to the hospitalist service for further treatment. DVT study normal. - Differential Diagnosis cellulitis, sepsis, dvt Critical Care Time: No Critical care attestation.: If time is entered above; I have spent that time in minutes in the direct care of this critically ill patient, excluding procedure time. ED Disposition Clinical Impression: Psoriasis, Left leg cellulitis, Leg edema, left, Nausea and vomiting, Hypokalemia, Cirrhosis, Thrombocytopenia Disposition: OP ADMIT IP TO THIS HOSP Is pt being admited?: Yes Condition: Stable Time of Disposition: 00:47 (Dr HINSON)
[2019-07-03] MEDS ORDERED: ACETAMINOPHEN 325 MG TAB PO PRN (01:33)
[2019-07-03] MEDS ORDERED: ONDANSETRON 4 MG/2 ML INJ IV PRN (01:33)
[2019-07-03] MEDS ORDERED: MAGNESIUM HYDROXIDE (MOM) ORAL LIQD UDC PO PRN (01:33)
--- NOTE | 2019-07-03 01:48 | History and Physical Report ---
History of Present Illness Date of examination: 07/03/19 Date of admission: 07/03/19 Chief complaint: Left lower Extremity redness and swelling for 3 days History of present illness: 49 year old white female with significant past medical history of liver cirrhosis, hypertension, chronic thrombocytopenia presenting to the emergency room today complaining of redness and swelling over the left lower extremity for about 3 days. She denies any fall or trauma to lower extremity. She also indicates that she has been having some low-grade fever at home, decreased oral intake, nausea or vomiting. She denies any chest pain or shortness of breath. She indicates she can hardly ambulate on the lower extremities. Past History Past Medical History: hypertension, other (psoriasis, chronic thrombocytopenia, liver cirrhosis, history of anxiety) Past Surgical History: appendectomy, Social history: smoking (smokes tobacco occasionally) Family history: no significant family history Medications and Allergies Allergies Allergy/AdvReac Type Severity Reaction Status Date / Time No Known Allergies Allergy Verified 01/21/19 16:47 Home Medications Medication Instructions Recorded Confirmed Last Taken Type Clobetasol 0.05% [Temovate] 1 applic TP BID #7 tube 12/28/18 01/02/19 Unknown Rx Nadolol [Corgard] 20 mg PO QDAY #30 tablet 12/28/18 01/02/19 Unknown Rx Rifaximin [Xifaxan] 550 mg PO BID #60 tablet 12/28/18 01/02/19 Unknown Rx Thiamine [Vitamin B-1] 100 mg PO QDAY #30 tablet 12/28/18 01/02/19 Unknown Rx prednisoLONE SOD PHOSPHAT [Orapred] 40 mg PO DAILY #5 oral.liqd 12/28/18 01/02/19 Unknown Rx oxyCODONE [roxiCODONE] 5 mg PO Q6HR PRN #12 tablet 01/21/19 Unknown Rx HYDROcodone/APAP 5-325 [[place] 1 - 2 each PO Q6HR PRN #10 tablet 02/22/19 Unknown Rx 5/325] Active Meds: Active Medications Acetaminophen (Tylenol) 650 mg PO Q4H PRN PRN Reason: Pain MILD(1-3)/Fever >100.5/[place] Heparin Sodium (Porcine) (Heparin) 5,000 unit SUB-Q Q8HR FOREIGN Sodium Chloride (Nacl 0.9% 1000 Ml) 1,000 mls @ 75 mls/hr IV DIRECT FOREIGN Clindamycin HCl (Cleocin 900 Mg/50 Ml) 900 mg in 50 mls @ 100 mls/hr IV Q8HR FOREIGN; Protocol Magnesium Hydroxide (Milk Of Magnesia) 30 ml PO Q4H PRN PRN Reason: Constipation Morphine Sulfate (Morphine) 2 mg IV Q4H PRN PRN Reason: Pain, Moderate (4-6) Ondansetron HCl (Zofran) 4 mg IV Q8H PRN PRN Reason: Nausea And Vomiting Sodium Chloride (Sodium Chloride Flush Syringe 10 Ml) 10 ml IV BID FOREIGN Sodium Chloride (Sodium Chloride Flush Syringe 10 Ml) 10 ml IV PRN PRN PRN Reason: LINE FLUSH Review of Systems Integumentary: pruritis, redness (on the left colectomy) Exam - Constitutional Vitals: Temp Pulse Resp BP Pulse Ox 97.5 F L 89 18 100/61 100 07/02/19 20:21 07/02/19 20:21 07/02/19 20:21 07/02/19 20:21 07/02/19 20:21 General appearance: Present: no acute distress, well-nourished - EENT Eyes: Present: PERRL, EOM intact ENT: hearing intact, clear oral mucosa, dentition normal - Neck Neck: Present: supple, normal ROM - Respiratory Respiratory effort: normal Respiratory: bilateral: CTA - Cardiovascular Rhythm: regular Heart Sounds: Present: S1 & S2 - Extremities Extremities: no ischemia, Full ROM Extremity abnormal: edema (his bilateral lower extremity edema), erythema (redness and tenderness over the left lower extremity) Peripheral Pulses: within normal limits - Abdominal General gastrointestinal: Present: soft, non-tender, distended (slightly distended) - Integumentary Integumentary: Present: clear, warm, dry, rash (multiple scattered psoriatic rashes on skin) - Musculoskeletal Musculoskeletal: strength equal bilaterally - Psychiatric Psychiatric: appropriate mood/affect, intact judgment & insight, cooperative - Neurologic Neurologic: CNII-XII intact Results - Labs CBC & Chem 7: 07/02/19 21:41 07/02/19 21:41 Labs: Abnormal lab results 07/02/19 07/02/19 07/02/19 Range/Units 21:41 21:41 21:41 RDW 17.4 H (13.2-15.2) % Plt Count 83 L (140-440) K/mm3 Lymph % (Auto) 10.3 L (13.4-35.0) % [place] % (Auto) 8.5 H (0.0-7.3) % Lymph # 0.9 L (1.2-5.4) K/mm3 Seg Neutrophils % 80.1 H (40.0-70.0) % PT (12.2-14.9) Sec. INR (0.87-1.13) APTT (24.2-36.6) Sec. Sodium 126 L (137-145) mmol/L Potassium 2.8 L* (3.6-5.0) mmol/L Chloride 93.2 L (98-107) mmol/L Carbon Dioxide 21 L (22-30) mmol/L Creatinine 0.4 L (0.7-1.2) mg/dL Glucose 121 H (65-100) mg/dL Lactic Acid 2.20 H* (0.7-2.0) mmol/L Calcium 8.1 L (8.4-10.2) mg/dL Total Bilirubin 1.80 H (0.1-1.2) mg/dL Albumin 3.2 L (3.9-5) g/dL 07/02/19 Range/Units 21:41 RDW (13.2-15.2) % Plt Count (140-440) K/mm3 Lymph % (Auto) (13.4-35.0) % [place] % (Auto) (0.0-7.3) % Lymph # (1.2-5.4) K/mm3 Seg Neutrophils % (40.0-70.0) % PT 17.8 H (12.2-14.9) Sec. INR 1.44 H (0.87-1.13) APTT 39.7 H (24.2-36.6) Sec. Sodium (137-145) mmol/L Potassium (3.6-5.0) mmol/L Chloride (98-107) mmol/L Carbon Dioxide (22-30) mmol/L Creatinine (0.7-1.2) mg/dL Glucose (65-100) mg/dL Lactic Acid (0.7-2.0) mmol/L Calcium (8.4-10.2) mg/dL Total Bilirubin (0.1-1.2) mg/dL Albumin (3.9-5) g/dL Assessment and Plan - Patient Problems (1) Left leg cellulitis Current Visit: Yes Status: Acute Plan to address problem: She has been placed on empiric IV antibiotics and analgesic medication. (2) Hypokalemia Current Visit: Yes Status: Acute Plan to address problem: Potassium was repleted. We'll monitor chemistry. (3) Thrombocytopenia Current Visit: Yes Status: Acute Plan to address problem: Probably Chronic. We'll monitor CBC (4) Cirrhosis of liver Current Visit: Yes Status: Acute Qualifiers: Plan to address problem: Will continue her routine home medications. (5) DVT prophylaxis Current Visit: Yes Status: Acute Plan to address problem: Placed on subcutaneous heparin. (6) Full code status Current Visit: Yes Status: Acute
[2019-07-03] MEDS ORDERED: HEPARIN 5,000 UNIT/1 ML VIAL ONE (06:06)
[2019-07-03] MEDS: HEPARIN 5,000 UNIT/1 ML VIAL SUB-Q SCH ×3 (06:07→13:13)
[2019-07-03] MEDS ORDERED: MORPHINE 2 MG/1 ML INJ ONE (06:11)
[2019-07-03] MEDS: MORPHINE 2 MG/1 ML INJ IV PRN ×2 (06:11→11:21)
[2019-07-03] MEDS: SODIUM CHLORIDE 0.9% 1000 ML 1,000 ML IV SCH (10:59)
[2019-07-03] MEDS: POTASSIUM CHLORIDE 10 MEQ 10 MEQ/100 ML BAG IV SCH ×4 (11:01→16:48)
[2019-07-03] MEDS: prednisoLONE SOD PHOSPHATE 15 MG/5 ML ORAL LIQD PO SCH (11:13)
[2019-07-03] MEDS: THIAMINE 100 MG TAB PO SCH (11:14)
[2019-07-03] MEDS: NADOLOL 20 MG TAB PO SCH (11:23)
[2019-07-03] MEDS: RIFAXIMIN 550 MG TAB PO SCH ×2 (13:12→21:38)
[2019-07-03] MEDS: CLOBETASOL 0.05% CREAM 15 GM TP SCH ×2 (13:13→21:37)
--- NOTE | 2019-07-03 13:51 | Event Note ---
Date: 07/03/19 Patient seen and examined this morning reports significant pain in the leg 5/10 in intensity with no aggravating symptoms reports that she has been unable to ambulate unfortunately has not followed up with her primary care doctor due to some social issues. She does have significant hyponatremia for which we will be rechecking her sodium level. Also severe hypokalemia, potassium replacement has been ordered and will recheck. She does not have a primary care physician but she follows for pharmacy at [facility] on [address] or [address]. She denies any alcohol use currently. She does have distended abdomen but states that that has not been a bother to her recently.
[2019-07-03] MEDS: cephALEXin 500 MG CAP PO SCH ×2 (13:59→19:04)
[2019-07-03] MEDS: oxyCODONE 5 MG TAB PO PRN (17:51)
[2019-07-04] MEDS: HEPARIN 5,000 UNIT/1 ML VIAL SUB-Q SCH ×4 (00:13→22:18)
[2019-07-04] MEDS: cephALEXin 500 MG CAP PO SCH ×4 (00:15→18:35)
[2019-07-04] MEDS: oxyCODONE 5 MG TAB PO PRN (03:21)
[2019-07-04] MEDS: SODIUM CHLORIDE 0.9% 1000 ML 1,000 ML IV SCH ×2 (03:24→18:36)
[2019-07-04] MEDS ORDERED: CALCIUM CARBONATE 500 MG TAB CHEW PO ONE (06:37)
[2019-07-04 07:26] LABS: Hematocrit 30.3 % (30.3-42.9); Hemoglobin 10.1 gm/dl (10.1-14.3); Mean Corpuscular HGB Conc 33 % (30-34); Mean Corpuscular Volume 87 fl (79-97); Red Blood Count 3.47 M/mm3 (3.65-5.03); Red Cell Distribution Width 17.1 % (13.2-15.2)
[2019-07-04 07:27] LABS: Basophils % (Auto) 0.5 % (0.0-1.8); Eosinophils # (Auto) 0.1 K/mm3 (0.0-0.4); Eosinophils % (Auto) 3.2 % (0.0-4.3); Lymphocytes # (Auto) 0.6 K/mm3 (1.2-5.4); Lymphocytes % (Auto) 15.8 % (13.4-35.0); Monocytes # (Auto) 0.4 K/mm3 (0.0-0.8); Monocytes % (Auto) 9.8 % (0.0-7.3)
[2019-07-04 07:30] LABS: Platelet Count 92 K/mm3 (140-440)
[2019-07-04 07:33] LABS: BUN/Creatinine Ratio 40; Blood Urea Nitrogen 12 mg/dL (7-17); Calcium 7.6 mg/dL (8.4-10.2); Hemolysis Index 16
[2019-07-04 07:35] LABS: INR 1.44 (0.87-1.13)
[2019-07-04 07:36] LABS: Partial Thromboplastin Time 42.3 Sec. (24.2-36.6)
[2019-07-04] MEDS ORDERED: POTASSIUM CHLORIDE 20 MEQ PACKET FEEDTUBE ONE (07:58)
[2019-07-04] MEDS ORDERED: POTASSIUM CHLORIDE ER 20 MEQ TAB PO ONE (08:00)
[2019-07-04] MEDS ORDERED: FUROSEMIDE 40 MG/4 ML INJ IV ONE (08:00)
[2019-07-04] MEDS ORDERED: SODIUM BICARB 8.4% 50 MEQ/50 ML SYRINGE IV ONE (08:00)
--- NOTE | 2019-07-04 08:01 | Progress Note ---
Assessment and Plan Assessment and plan: 49 year old white female with significant past medical history of liver cirrhosis, hypertension, chronic thrombocytopenia presenting to the emergency room today complaining of redness and swelling over the left lower extremity for about 3 days. She denies any fall or trauma to lower extremity. She also indicates that she has been having some low-grade fever at home, decreased oral intake, nausea or vomiting. She denies any chest pain or shortness of breath. She indicates she can hardly ambulate on the lower extremities. Severe hyponatremia Severe hypokalemia Left lower extremity cellulitis with chronic changes also superimposed Thrombocytopenia Persistent nausea with vomiting Cirrhosis of the liver with chronic ascites Hypertension Chronic pain syndrome Secondary coagulopathy PLAN Continue supportive care with antibiotic therapy while sodium has improved some potassium has improved some patient still at risk for further worsening Ultrasound Doppler did not reveal any DVT We will change antibiotics to Keflex in anticipation for discharge in a.m. We will give a dose of Lasix Dietitian consult to assist with p.o. intake Case management to assist this patient has some social issues that are precluding adequate care Encourage ambulation awaiting for physical therapy heparinoid products has been discontinued due to thrombocytopenia and patient also with persistent elevated INR Fall precaution Replace potassium DVT and GI prophylaxis Anticipate discharge in a.m. Patient verbalizes that she does not drink anymore History Interval history: Patient seen and examined today resting comfortably Hospitalist Physical - Physical exam Narrative exam: VITAL SIGNS: Reviewed. GENERAL: The patient appears normally developed, Vital signs as documented. HEAD: No signs of head trauma. EYES: Pupils are equal. Extraocular motions intact. EARS: Hearing grossly intact. MOUTH: Oropharynx is normal. NECK: No adenopathy, no JVD. CHEST: Chest with clear breath sounds bilaterally. No wheezes, rales, or rhonchi. CARDIAC: Regular rate and rhythm. S1 and S2, without murmurs, gallops, or rubs. VASCULAR: Left greater than right edema. Peripheral pulses normal and equal in all extremities. ABDOMEN: Soft, non tender but distended. No rebound or guarding, and no masses palpated. Bowel Sounds normal. MUSCULOSKELETAL: Good range of motion of all major joints. edema (his bilateral lower extremity edema), erythema (redness and tenderness over the left lower e xtremity) no cyanosis or clubbing noted NEUROLOGIC EXAM: Alert and oriented x 3 No focal sensory or strength deficits. Speech normal. Follows commands. PSYCHIATRIC: Mood normal. SKIN: detail exam as documented in skin assessment.multiple scattered psoriatic rashes on ski - Constitutional Vitals: Temp Pulse Resp BP Pulse Ox 98.1 F 80 18 88/53 97 07/04/19 06:06 07/04/19 06:06 07/04/19 06:06 07/04/19 06:06 07/04/19 06:06 General appearance: Present: no acute distress, well-nourished Results - Labs CBC & Chem 7: 07/04/19 06:32 07/04/19 06:32 Labs: Laboratory Last Values WBC 3.8 K/mm3 (4.5-11.0) L 07/04/19 06:32 RBC 3.47 M/mm3 (3.65-5.03) L 07/04/19 06:32 Hgb 10.1 gm/dl (10.1-14.3) 07/04/19 06:32 Hct 30.3 % (30.3-42.9) 07/04/19 06:32 MCV 87 fl (79-97) 07/04/19 06:32 MCH 29 pg (28-32) 07/04/19 06:32 MCHC 33 % (30-34) 07/04/19 06:32 RDW 17.1 % (13.2-15.2) H 07/04/19 06:32 Plt Count 92 K/mm3 (140-440) L 07/04/19 06:32 Lymph % (Auto) 15.8 % (13.4-35.0) 07/04/19 06:32 [place] % (Auto) 9.8 % (0.0-7.3) H 07/04/19 06:32 Eos % (Auto) 3.2 % (0.0-4.3) 07/04/19 06:32 Baso % (Auto) 0.5 % (0.0-1.8) 07/04/19 06:32 Lymph # 0.6 K/mm3 (1.2-5.4) L 07/04/19 06:32 [place] # 0.4 K/mm3 (0.0-0.8) 07/04/19 06:32 Eos # 0.1 K/mm3 (0.0-0.4) 07/04/19 06:32 Baso # 0.0 K/mm3 (0.0-0.1) 07/04/19 06:32 Seg Neutrophils % 70.7 % (40.0-70.0) H 07/04/19 06:32 Seg Neutrophils # 2.7 K/mm3 (1.8-7.7) 07/04/19 06:32 PT 17.8 Sec. (12.2-14.9) H 07/04/19 06:32 INR 1.44 (0.87-1.13) H 07/04/19 06:32 APTT 42.3 Sec. (24.2-36.6) H 07/04/19 06:32 Sodium 132 mmol/L (137-145) L 07/04/19 06:32 Potassium 3.4 mmol/L (3.6-5.0) L 07/04/19 06:32 Chloride 100.9 mmol/L (98-107) 07/04/19 06:32 Carbon Dioxide 17 mmol/L (22-30) L 07/04/19 06:32 Anion Gap 18 mmol/L 07/04/19 06:32 BUN 12 mg/dL (7-17) 07/04/19 06:32 Creatinine 0.3 mg/dL (0.7-1.2) L 07/04/19 06:32 Estimated GFR > 60 ml/min 07/04/19 06:32 BUN/Creatinine Ratio 40 % 07/04/19 06:32 Glucose 118 mg/dL (65-100) H 07/04/19 06:32 Lactic Acid 1.40 mmol/L (0.7-2.0) 07/02/19 23:52 Calcium 7.6 mg/dL (8.4-10.2) L 07/04/19 06:32 Magnesium 1.80 mg/dL (1.7-2.3) 07/03/19 07:51 Total Bilirubin 1.80 mg/dL (0.1-1.2) H 07/02/19 21:41 AST 36 units/L (5-40) 07/02/19 21:41 ALT 14 units/L (7-56) 07/02/19 21:41 Alkaline Phosphatase 129 units/L (35-129) 07/02/19 21:41 Total Protein 7.0 g/dL (6.3-8.2) 07/02/19 21:41 Albumin 3.2 g/dL (3.9-5) L 07/02/19 21:41 Albumin/Globulin Ratio 0.8 % 07/02/19 21:41 Active Medications - Current Medications Current Medications: Generic Name Dose Route Start Last Admin Trade Name Freq PRN Reason Stop Dose Admin Acetaminophen 650 mg 07/03/19 01:33 07/04/19 05:27 Tylenol PO 650 mg Q4H PRN Administration Pain MILD(1-3)/Fever >100.5/FUALKNER Cephalexin 500 mg 07/03/19 14:00 07/04/19 05:18 Keflex PO 500 mg Q6HR FOREIGN Administration Clobetasol Propionate 1 applic 07/03/19 13:00 07/03/19 21:37 Temovate TP 1 applic BID FOREIGN Administration Furosemide 40 mg 07/04/19 08:00 Lasix IV 07/04/19 08:01 ONCE ONE Heparin Sodium (Porcine) 5,000 unit 07/03/19 06:00 07/04/19 05:40 Heparin SUB-Q Not Given Q8HR FOREIGN Sodium Chloride 1,000 mls @ 75 mls/hr 07/03/19 01:45 07/04/19 03:24 Nacl 0.9% 1000 Ml IV 75 mls/hr DIRECT FOREIGN Administration Magnesium Hydroxide 30 ml 07/03/19 01:33 Milk Of Magnesia PO Q4H PRN Constipation Morphine Sulfate 2 mg 07/03/19 01:33 07/03/19 11:21 Morphine IV 2 mg Q4H PRN Administration Pain, Moderate (4-6) Nadolol 20 mg 07/03/19 12:00 07/03/19 11:23 Corgard PO Not Given QDAY FOREIGN Ondansetron HCl 4 mg 07/03/19 01:33 07/04/19 05:27 Zofran IV 4 mg Q8H PRN Administration Nausea And Vomiting Oxycodone HCl 5 mg 07/03/19 09:09 07/04/19 03:21 Roxicodone PO 5 mg Q6H PRN Administration MODERATE PAIN Potassium Chloride 40 meq 07/04/19 07:58 K-Dur PO 07/04/19 07:59 ONCE ONE Potassium Chloride 40 meq 07/04/19 07:58 Potassium Chloride FEEDTUBE 07/04/19 07:59 ONCE ONE Prednisolone Sodium Phosphate 40 mg 07/03/19 12:00 07/03/19 11:13 Orapred PO 40 mg DAILY FOREIGN Administration Rifaximin 550 mg 07/03/19 12:00 07/03/19 21:38 Xifaxan PO 550 mg BID FOREIGN Administration Sodium Bicarbonate 50 meq 07/04/19 08:00 Sodium Bicarbonate 50meq Syringe IV 07/04/19 08:01 ONCE ONE Sodium Chloride 10 ml 07/03/19 10:00 07/03/19 21:37 Sodium Chloride Flush Syringe 10 Ml IV 10 ml BID FOREIGN Administration Sodium Chloride 10 ml 07/03/19 01:33 Sodium Chloride Flush Syringe 10 Ml IV PRN PRN LINE FLUSH Thiamine HCl 100 mg 07/03/19 10:00 07/03/19 11:14 Vitamin B-1 PO 100 mg QDAY FOREIGN Administration Nutrition/Malnutrition Assess - Dietary Evaluation Nutrition/Malnutrition Findings: Nutrition Notes Start: 07/03/19 09:44 Freq: Status: Active Protocol: Document 07/03/19 09:44 LP (Rec: 07/03/19 09:54 LP [id number]) Nutrition Notes Need for Assessment generated from: MD Order Initial or Follow up Assessment Current Diagnosis Hypertension Other Pertinent Diagnosis Cirrhosis, left leg cellulitis Current Diet Cardiac Labs/Tests 07/02/19 K 2.8 Bili 1.8 Pertinent Medications Reviewed Height 5 ft 5 in Weight 56.699 kg [place] Body Weight (kg) 56.81 BMI 20.7 Weight change and time frame 7.4% wt loss in 2 weeks ( significant) Subjective/Other Information Consult for poor oral intakes. Pt states not eating well [employer] and now starting to get appetite back. Pt states she had a 10 lb wt loss in 2 weeks and only eating 1/2 a sandwich per day. Pt consumed 30% of breakfast this AM. Pt requesting Ensure, will drink at home occassionally. Burn Absent Trauma Absent GI Symptoms None Current % PO Poor (25-49%) Minimum of two criteria Yes Energy Intake (severe) < or equal to 50% Estimated Energy Requirement > or equal to 5 days Interpretation of Weight Loss (severe) >2% in 1 week Body Fat Depletion Mild depletion (non-severe) Muscle Mass Mild Depletion (non-severe) #1 Nutrition Diagnosis Malnutrition Etiology decreased appetite As Evidenced by Signs and Symptoms 7.4% wt loss in 2 weeks, poor appetite, muscle and fat wasting Is patient on ventilator? No Is Patient Ambulatory and/or Out of Bed Yes REE-([facility]-ambulatory/OOB) [ 1537.731 [id number]] Calculation Used for Recommendations [facility] Additional Notes Protein needs are 68-85g (1.2- 1.5g/kg) Fluid needs are 1ml/kcal Nutrition Intervention Change Diet Order: Continue Add Supplement/Snack (indicate name/kcal Ensure Enlive Vanilla and /protein ) strawberry TID Provides kCal: 1,050 Provides Protein (gm) 60 Goal #1 Meet at least 80% of kcal and protein needs Goal #2 Wt maintainence Anticipated Discharge Needs: Cardiac diet with ONS BID to TID Follow-Up By: 07/05/19 Additional Comments Follow for intakes
[2019-07-04] MEDS: RIFAXIMIN 550 MG TAB PO SCH ×2 (11:43→22:17)
[2019-07-04] MEDS: prednisoLONE SOD PHOSPHATE 15 MG/5 ML ORAL LIQD PO SCH ×2 (11:43→13:46)
[2019-07-04] MEDS: THIAMINE 100 MG TAB PO SCH (11:43)
[2019-07-04] MEDS: NADOLOL 20 MG TAB PO SCH (11:49)
[2019-07-04] MEDS: CLOBETASOL 0.05% CREAM 15 GM TP SCH ×2 (11:50→22:17)
[2019-07-04] MEDS ORDERED: PANTOPRAZOLE 40 MG INJ IV SCH (12:00)
[2019-07-04] MEDS: MORPHINE 2 MG/1 ML INJ IV PRN ×2 (13:43→22:27)
[2019-07-05] MEDS: cephALEXin 500 MG CAP PO SCH ×3 (00:19→14:50)
[2019-07-05] MEDS: SODIUM CHLORIDE 0.9% 1000 ML 1,000 ML IV SCH (04:11)
[2019-07-05] MEDS: oxyCODONE 5 MG TAB PO PRN (04:11)
[2019-07-05 05:45] LABS: BUN/Creatinine Ratio 27; Blood Urea Nitrogen 8 mg/dL (7-17); Calcium 7.9 mg/dL (8.4-10.2); Hemolysis Index 8
[2019-07-05] MEDS: HEPARIN 5,000 UNIT/1 ML VIAL SUB-Q SCH ×2 (06:07→14:50)
--- NOTE | 2019-07-05 08:03 | Discharge Summary ---
Providers - Providers Date of Admission: 07/03/19 04:51 Attending physician: TRUONG WHITMORE MD 07/03/19 02:06 Consult to Dietitian/Nutrition [CONS] Routine Physician Instructions: Reason For Exam: Reason for Consult: Poor oral intake Consult to Wound/ET Nurse [CONS] Routine Reason For Exam: wound eval 07/03/19 13:49 Physical Therapy Evaluation and Treat [CONS] Routine Comment: Reason For Exam: ataxia 07/04/19 08:00 Consult to Dietitian/Nutrition [CONS] Routine Physician Instructions: Reason For Exam: Reason for Consult: Poor oral intake 07/04/19 11:43 Speech Therapy Evaluation and Treat [CONS] Routine Reason For Exam: dysathria Primary care physician: [employer] Hospitalization Reason for admission: cirrhosis Condition: Stable Hospital course: 49 year old white female with significant past medical history of liver cirrhosis, hypertension, chronic thrombocytopenia presenting to the emergency room today complaining of redness and swelling over the left lower extremity for about 3 days. She denies any fall or trauma to lower extremity. She also indicates that she has been having some low-grade fever at home, decreased oral intake, nausea or vomiting. She denies any chest pain or shortness of breath. She indicates she can hardly ambulate on the lower extremities. -leg erythematous rash with flaky skin.No drainage or odor noted.. Patient reports that it itches. Temovate cream BID has already been ordered by MD. Patient directed to continue treatment. This is my initial assessment of this patient who was received in bed, awake and alert. Patient presented with psoriasis as indicated above. I explained to patient that we will continue treatment with the temovate cream that has been ordered. Left lower extremity swelling was also noted.Patient was also complaining of pain. Will continue to monitor. She is stable for discharge following all evaluation, we had discussion about liver cirrhosis and preventive health measures and the patient verbalized understanding inlcuding q6 months screening Severe hyponatremia Severe hypokalemia Left lower extremity cellulitis with chronic changes also superimposed Thrombocytopenia Severe Protein calorie Malnutrition Persistent nausea with vomiting Cirrhosis of the liver with chronic ascites Hypertension Chronic pain syndrome Secondary coagulopathy Disposition: [id number]/TX-[id number] HOME UNDER HOME [facility] Time spent for discharge: 35 MINS Core Measure Documentation - Palliative Care Palliative Care/ Comfort Measures: Not Applicable - Core Measures Any of the following diagnoses?: none Exam - Physical Exam Narrative exam: VITAL SIGNS: Reviewed. GENERAL: The patient appears normally developed, Vital signs as documented. HEAD: No signs of head trauma. EYES: Pupils are equal. Extraocular motions intact. EARS: Hearing grossly intact. MOUTH: Oropharynx is normal. NECK: No adenopathy, no JVD. CHEST: Chest with clear breath sounds bilaterally. No wheezes, rales, or rhonchi. CARDIAC: Regular rate and rhythm. S1 and S2, without murmurs, gallops, or rubs. VASCULAR: Left greater than right edema. Peripheral pulses normal and equal in all extremities. ABDOMEN: Soft, non tender but distended. No rebound or guarding, and no masses palpated. Bowel Sounds normal. MUSCULOSKELETAL: Good range of motion of all major joints. edema (his bilateral lower extremity edema), erythema (redness and tenderness over the left lower extremity) no cyanosis or clubbing noted NEUROLOGIC EXAM: Alert and oriented x 3 No focal sensory or strength deficits. Speech normal. Follows commands. PSYCHIATRIC: Mood normal. SKIN: detail exam as documented in skin assessment.multiple scattered psoriatic rashes on ski - Constitutional Vitals: Temp Pulse Resp BP Pulse Ox 32.1 F L 86 17 113/79 95 07/05/19 04:01 07/05/19 04:01 07/05/19 05:11 07/05/19 04:01 07/05/19 04:01 Plan Activity: advance as tolerated, fall precautions Diet: low fat, low salt Special Instructions: record daily weights, record daily BP diary Follow up with: PRIMARY MD GISSEL [Primary Care Provider] - 7 Days BOBBI ARCE MD [Staff Physician] - 7 Days Prescriptions: Nadolol [Corgard] 20 mg PO QDAY #30 tablet cephALEXin [Keflex] 500 mg PO Q6HR #20 capsule prednisoLONE SOD PHOSPHAT [Orapred] 20 mg PO DAILY #30 oral.liqd oxyCODONE [roxiCODONE] 5 mg PO Q6H PRN #10 tablet PRN Reason: MODERATE PAIN Thiamine [Vitamin B-1] 100 mg PO QDAY #30 tablet Rifaximin [Xifaxan] 550 mg PO BID #60 tablet
[2019-07-05 08:26] LABS: Hemoglobin 10.4 gm/dl (10.1-14.3); Mean Corpuscular HGB Conc 32 % (30-34); Mean Corpuscular Volume 88 fl (79-97); Platelet Count 106 K/mm3 (140-440); Red Blood Count 3.64 M/mm3 (3.65-5.03)
[2019-07-05] MEDS: NADOLOL 20 MG TAB PO SCH (10:00)
[2019-07-05] MEDS ORDERED: PANTOPRAZOLE 40 MG TAB PO SCH (10:00)
[2019-07-05] MEDS: RIFAXIMIN 550 MG TAB PO SCH (10:00)
[2019-07-05] MEDS: THIAMINE 100 MG TAB PO SCH (10:01)
[2019-07-05] MEDS: CLOBETASOL 0.05% CREAM 15 GM TP SCH (10:01)
[2019-07-05] MEDS: prednisoLONE SOD PHOSPHATE 15 MG/5 ML ORAL LIQD PO SCH (10:02)
[2019-07-05] MEDS: MORPHINE 2 MG/1 ML INJ IV PRN (10:17)
[2019-07-05 14:29] VITALS: BP 129/81
== END 2019-07-05 16:10 | disposition home health service (06) | DRG 602 ==
LOC: ED 15:27 → 3A 07-03 04:51
PROVIDERS: ADMIT Internal Medicine Geriatric Medicine; ATTEND Internal Medicine
DX: L03.116 Cellulitis of left lower limb (principal); E43 Unspecified severe protein-calorie malnutrition; E87.1 Hypo-osmolality and hyponatremia; E87.6 Hypokalemia; I10 Essential (primary) hypertension; K74.60 Unspecified cirrhosis of liver; M17.0 Bilateral primary osteoarthritis of knee; F32.9 Major depressive disorder, single episode, unspecified; F41.9 Anxiety disorder, unspecified; L40.9 Psoriasis, unspecified; R11.2 Nausea with vomiting, unspecified; D69.6 Thrombocytopenia, unspecified; F17.210 Nicotine dependence, cigarettes, uncomplicated; G89.4 Chronic pain syndrome; D68.8 Other specified coagulation defects; R18.8 Other ascites; Z68.23 Body mass index [BMI] 23.0-23.9, adult
CPT/HCPCS: 36415; 80048; 80053; 82140; 83735; 84132; 84295; 85025; 85027; 85610; 85730; 87040; 96365; 96375; 99406; G0378; C9113; J1170; J1644; J1885; J1940; J2270; J2405; J3480; J7030; J7510

== ENCOUNTER 2019-12-01 15:57 | Emergency (ER) | payer MEDICAID ==
--- NOTE | 2019-12-01 16:35 | Emergency Department Report ---
ED General Adult HPI - General Chief complaint: Pain General Stated complaint: GENERAL PAIN PUI?: No Time Seen by Provider: 12/01/19 16:27 Source: patient, EMS Mode of arrival: Ambulatory Limitations: No Limitations - History of Present Illness Initial comments: Patient is a 49-year-old female that comes to the ER complaining of diffuse pain. She has diffuse psoriasis. She was recently discharged from the hospital. She states that she is taking her Keflex. However, when she takes 3 bottles of medications out of her purse they do not match her discharge reconciliation from prior discharge. This includes appointment for her psoriasis. Patient is focused on her diffuse pain and asking for pain medications. She has no oxycodone in her bag but it was prescribed on discharge. I told her that the emergency room would not refill her narcotics and that she needed to follow-up with her primary care for that. Patient has no fever or chills. -: Gradual, week(s) Quality: aching Consistency: constant Improves with: none Worsens with: none Associated Symptoms: denies other symptoms Treatments Prior to Arrival: other (HAS BANOPHEN, PROTONIX, AND KEFLEX RX; I DONT BELIEVE SHE IS TAKING OTHER MEDS GIVEN TO HER ON DC) - Related Data Previous Rx's Medication Instructions Recorded Last Taken Type Folic Acid [Folvite] 1 mg PO QDAY #30 tablet 11/12/19 Unknown Rx Magnesium Oxide [Mag-Ox] 400 mg PO BID #14 tablet 11/12/19 Unknown Rx Multivitamin Tab W-MINERAL 1 each PO QDAY #30 tablet 11/12/19 Unknown Rx [Multiple Vitamin/Mineral (Theragran M)] Pantoprazole [Protonix TAB] 40 mg PO QDAY #30 tablet 11/12/19 Unknown Rx Thiamine [Vitamin B-1] 100 mg PO QDAY #100 tablet 11/12/19 Unknown Rx Triamcinolone 0.1% [Kenalog 0.1% 1 applic TP BID #1 tube 11/12/19 Unknown Rx CREAM] cephALEXin [Keflex] 500 mg PO QID #28 capsule 11/12/19 Unknown Rx diphenhydrAMINE [Benadryl CAP] 25 mg PO Q6HR PRN #15 capsule 11/12/19 Unknown Rx polyethylene glycoL 3350 [Miralax 17 gm PO QDAY PRN #30 powd.pack 11/12/19 Unknown Rx 3350] predniSONE [Deltasone] 1 dose PO QDAY #72 tab 11/12/19 Unknown Rx Allergies Allergy/AdvReac Type Severity Reaction Status Date / Time No Known Allergies Allergy Verified 12/01/19 16:01 ED Review of Systems ROS: Stated complaint: GENERAL PAIN Other details as noted in HPI Comment: All other systems reviewed and negative ED Past Medical Hx - Past Medical History Hx Hypertension: Yes Hx CVA: No Hx Heart Attack/AMI: No Hx Congestive Heart Failure: No Hx Diabetes: No Hx Pulmonary Embolism: No Hx GERD: No Hx Liver Disease: Yes (CIRRHOSIS) Hx Renal Disease: No Hx of Cancer: No Hx Sickle Cell Disease: No Hx Arthritis: Yes (knees arms hands) Hx Headaches / Migraines: No Hx Seizures: No Hx Kidney Stones: No Hx Psychiatric Treatment: Yes (anxiety, DEPRESSION) Hx Asthma: No Hx COPD: No Hx Tuberculosis: No Hx Dementia: No Hx HIV: No Additional medical history: psoriasis - Surgical History Past Surgical History?: Yes Hx Appendectomy: Yes Additional Surgical History: - Family History Family history: no significant - Social History Smoking Status: Never Smoker Substance Use Type: Prescribed - Medications Home Medications: Home Medications Medication Instructions Recorded Confirmed Last Taken Type Folic Acid [Folvite] 1 mg PO QDAY #30 tablet 11/12/19 Unknown Rx Magnesium Oxide [Mag-Ox] 400 mg PO BID #14 tablet 11/12/19 11/11/19 Unknown Rx Multivitamin Tab W-MINERAL 1 each PO QDAY #30 tablet 11/12/19 Unknown Rx [Multiple Vitamin/Mineral (Theragran M)] Pantoprazole [Protonix TAB] 40 mg PO QDAY #30 tablet 11/12/19 Unknown Rx Thiamine [Vitamin B-1] 100 mg PO QDAY #100 tablet 11/12/19 Unknown Rx Triamcinolone 0.1% [Kenalog 0.1% 1 applic TP BID #1 tube 11/12/19 Unknown Rx CREAM] cephALEXin [Keflex] 500 mg PO QID #28 capsule 11/12/19 Unknown Rx diphenhydrAMINE [Benadryl CAP] 25 mg PO Q6HR PRN #15 capsule 11/12/19 Unknown Rx polyethylene glycoL 3350 [Miralax 17 gm PO QDAY PRN #30 powd.pack 11/12/19 Unknown Rx 3350] predniSONE [Deltasone] 1 dose PO QDAY #72 tab 11/12/19 Unknown Rx ED Physical Exam - General Limitations: No Limitations General appearance: alert, in no apparent distress - Head Head exam: Present: atraumatic, normocephalic - Eye Eye exam: Present: normal appearance - ENT ENT exam: Present: mucous membranes moist - Neck Neck exam: Present: normal inspection - Respiratory Respiratory exam: Present: normal lung sounds bilaterally. Absent: respiratory distress - Cardiovascular Cardiovascular Exam: Present: regular rate, normal rhythm (100). Absent: systolic murmur, diastolic murmur, rubs, gallop - GI/Abdominal GI/Abdominal exam: Present: soft, normal bowel sounds - Extremities Exam Extremities exam: Present: normal inspection - Back Exam Back exam: Present: normal inspection - Neurological Exam Neurological exam: Present: alert, oriented X3 - Psychiatric Psychiatric exam: Present: normal affect, normal mood - Skin Skin exam: Present: warm, other. Absent: rash ED Course Vital Signs 12/01/19 16:04 Temperature 98.9 F Pulse Rate 122 H Respiratory 20 Rate Blood Pressure 113/61 O2 Sat by Pulse 97 Oximetry ED Medical Decision Making - Lab Data Result diagrams: 12/01/19 17:24 12/01/19 17:24 - Radiology Data Radiology results: report reviewed, image reviewed - Medical Decision Making Vital Signs 12/01/19 16:04 Temperature 98.9 F Pulse Rate 122 H Respiratory 20 Rate Blood Pressure 113/61 O2 Sat by Pulse 97 Oximetry WOUND CARE PROVIDED HYDRATED/CLINDA IV/decadron she may have motrin or tylenol PRN WOUNDS DRESSED WITH [employer] AND BANDAGES APPLIED LABS NOTED- improved since dc K replaced WILL DC HOME WITH SAME RX AND [facility] OR PCP FOLLOW UP. She is to take motrin or tylenol for pain. Labs 12/01/19 17:24 [place] % (Auto) 14.1 H Eos % (Auto) 4.1 [place] # 0.7 Eos # 0.2 Baso # 0.0 Seg Neutrophils % 59.1 Seg Neutrophils # 3.1 Labs 12/01/19 12/01/19 17:24 17:24 WBC 5.2 RBC 3.40 L Hgb 9.4 L Hct 28.7 L MCV 84 MCH 28 MCHC 33 RDW 21.1 H Plt Count 113 L Lymph % (Auto) 22.1 [place] % (Auto) 14.1 H Eos % (Auto) 4.1 Baso % (Auto) 0.6 Lymph # 1.2 [place] # 0.7 Eos # 0.2 Baso # 0.0 Seg Neutrophils % 59.1 Seg Neutrophils # 3.1 Sodium 142 Potassium 3.2 L Chloride 105.9 Carbon Dioxide 20 L Anion Gap 19 BUN 3 L Creatinine 0.4 L Estimated GFR > 60 BUN/Creatinine Ratio 8 Glucose 122 H Calcium 7.8 L Total Bilirubin 0.70 AST 46 H ALT 12 Alkaline Phosphatase 171 H Total Protein 6.6 Albumin 2.8 L Albumin/Globulin Ratio 0.7 pt arguing with RN about provider "not seeing her" and wanting pain medications. - Differential Diagnosis ro sepsis Critical care attestation.: If time is entered above; I have spent that time in minutes in the direct care of this critically ill patient, excluding procedure time. ED Disposition Clinical Impression: Psoriasis, Generalized pain, Drug-seeking behavior, Hypokalemia Disposition: DC-01 TO HOME OR SELFCARE Is pt being admited?: No Does the pt Need Aspirin: No Condition: Stable Additional Instructions: CONTINUE HOME MEDICATIONS MOTRIN OR TYLENOL FOR PAIN SEE PCP FOR STRONGER PAIN MEDS REFERRAL TO PCP BELOW [facility] W[facility] MAY BE ABLE TO HELP YOU HEAL THE WOUNDS STAY WELL HYDRATED Referrals: NACHO YU MD [Staff Physician] - 3-5 Days Time of Disposition: 17:39
[2019-12-01] MEDS ORDERED: SODIUM CHLORIDE 0.9% 1000 ML 1,000 ML IV ONE (16:45)
[2019-12-01] MEDS ORDERED: IBUPROFEN 800 MG TAB PO ONE (17:02)
--- NOTE | 2019-12-01 17:23 | XRay Report ---
CHEST 2 VIEWS INDICATION / CLINICAL INFORMATION: chest pain. COMPARISON: Chest x-ray on 09/09/2019 FINDINGS: SUPPORT DEVICES: None. HEART / MEDIASTINUM: No significant abnormality. LUNGS / PLEURA: No significant pulmonary or pleural abnormality. No pneumothorax. ADDITIONAL FINDINGS: No significant additional findings. IMPRESSION: 1. No acute findings. Signer Name: Axel Clifton MD Signed: 12/01/2019 5:19 PM Workstation Name: [id number]
[2019-12-01 17:41] LABS: Basophils % (Auto) 0.6 % (0.0-1.8); Eosinophils # (Auto) 0.2 K/mm3 (0.0-0.4); Eosinophils % (Auto) 4.1 % (0.0-4.3); Hematocrit 28.7 % (30.3-42.9); Hemoglobin 9.4 gm/dl (10.1-14.3); Lymphocytes # (Auto) 1.2 K/mm3 (1.2-5.4); Lymphocytes % (Auto) 22.1 % (13.4-35.0); Mean Corpuscular HGB Conc 33 % (30-34); Mean Corpuscular Volume 84 fl (79-97); Monocytes # (Auto) 0.7 K/mm3 (0.0-0.8); Monocytes % (Auto) 14.1 % (0.0-7.3); Platelet Count 113 K/mm3 (140-440)
[2019-12-01] MEDS ORDERED: dexAMETHasone 4 MG/ML VIAL IV ONE (17:42)
[2019-12-01 18:01] LABS: Red Cell Distribution Width 21.1 % (13.2-15.2)
[2019-12-01 18:02] LABS: Alanine Aminotransferase 12 units/L (7-56); Albumin 2.8 g/dL (3.9-5); BUN/Creatinine Ratio 8; Blood Urea Nitrogen 3 mg/dL (7-17); Calcium 7.8 mg/dL (8.4-10.2); Hemolysis Index 2
[2019-12-01] MEDS ORDERED: POTASSIUM CHLORIDE ER 20 MEQ TAB PO ONE (18:06)
[2019-12-01] MEDS ORDERED: ACETAMINOPHEN 325 MG TAB PO ONE (18:09)
[2019-12-01] MEDS ORDERED: ACETAMINOPHEN 325 MG TAB ONE (18:12)
[2019-12-01 19:03] VITALS: BP 109/81
== END 2019-12-01 19:05 | disposition home or self-care (01) ==
LOC: ED 15:57
DX: L40.9 Psoriasis, unspecified (principal); E87.6 Hypokalemia; I10 Essential (primary) hypertension; M19.90 Unspecified osteoarthritis, unspecified site; F41.9 Anxiety disorder, unspecified; F32.9 Major depressive disorder, single episode, unspecified; Z79.899 Other long term (current) drug therapy; Z76.5 Malingerer [conscious simulation]; Z90.49 Acquired absence of other specified parts of digestive tract
CPT/HCPCS: 36415; 71046; 80053; 85025; 96365; 96375; 99284; J1100; J7030

== ENCOUNTER 2019-12-20 04:15 | Emergency (ER) | payer MEDICAID ==
[2019-12-20] MEDS ORDERED: methylPREDNISolone Sod Succinate 125 MG/2 ML INJ IM ONE (08:33)
[2019-12-20] MEDS ORDERED: HYDROcodone/ACETAMINOPHEN 5-325 MG TAB PO STA (08:33)
[2019-12-20 08:55] LABS: Hematocrit 31.7 % (30.3-42.9); Hemoglobin 10.1 gm/dl (10.1-14.3); Mean Corpuscular HGB Conc 32 % (30-34); Mean Corpuscular Volume 85 fl (79-97); Red Blood Count 3.74 M/mm3 (3.65-5.03)
[2019-12-20 08:57] VITALS: BP 117/83
--- NOTE | 2019-12-20 09:02 | Emergency Department Report ---
ED General Adult HPI - General Chief complaint: Pain General Stated complaint: PSORIASIS ON BOTH LEGS Time Seen by Provider: 12/20/19 07:42 Source: patient, EMS Mode of arrival: Wheelchair Limitations: No Limitations - History of Present Illness Initial comments: 29-year-old female with past medical history of psoriasis and cirrhosis presents emerged department complaining of over 1 month history of progressively worsening waxing and waning psoriatic rash and was noticed began to have some pain and aches to her joints. States she was seen back in October by Dr. Herrmann however was unable to get the prednisone, Kenalog, thiamine, magnesium oxide from the pharmacy as she states they were out of the medication. States she was also given a pain pill which she was unable to retrieve as well due to the pharmacy being out. She was able to take the Keflex for her legs which she states she thinks she may have had a reaction to. She continues to have an excoriated red rash with some swelling to the legs with occasional weeping. Reports no chest pain no fever, nausea, vomiting, hemoptysis, hematemesis, hematochezia. She reports having diffuse pain to her ankles knees elbows and seeks pain control here in the emergency department today. Severity scale (0 -10): 9 Quality: aching Consistency: constant Associated Symptoms: rash. denies: confusion, chest pain, cough, diaphoresis, malaise, nausea/vomiting, seizure - Related Data Previous Rx's Medication Instructions Recorded Last Taken Type Folic Acid [Folvite] 1 mg PO QDAY #30 tablet 11/12/19 Unknown Rx Magnesium Oxide [Mag-Ox] 400 mg PO BID #14 tablet 11/12/19 Unknown Rx Multivitamin Tab W-MINERAL 1 each PO QDAY #30 tablet 11/12/19 Unknown Rx [Multiple Vitamin/Mineral (Theragran M)] Pantoprazole [Protonix TAB] 40 mg PO QDAY #30 tablet 11/12/19 Unknown Rx Thiamine [Vitamin B-1] 100 mg PO QDAY #100 tablet 11/12/19 Unknown Rx Triamcinolone 0.1% [Kenalog 0.1% 1 applic TP BID #1 tube 11/12/19 Unknown Rx CREAM] cephALEXin [Keflex] 500 mg PO QID #28 capsule 11/12/19 Unknown Rx diphenhydrAMINE [Benadryl CAP] 25 mg PO Q6HR PRN #15 capsule 11/12/19 Unknown Rx polyethylene glycoL 3350 [Miralax 17 gm PO QDAY PRN #30 powd.pack 11/12/19 Unknown Rx 3350] predniSONE [Deltasone] 1 dose PO QDAY #72 tab 11/12/19 Unknown Rx Mometasone Furoate [Elocon] 1 applicatio TP QDAY #45 cream..g. 12/20/19 Unknown Rx predniSONE [Deltasone] 20 mg PO QDAY #7 tab 12/20/19 Unknown Rx Allergies Allergy/AdvReac Type Severity Reaction Status Date / Time No Known Allergies Allergy Verified 12/01/19 16:01 ED Review of Systems ROS: Stated complaint: PSORIASIS ON BOTH LEGS Other details as noted in HPI Comment: All other systems reviewed and negative ED Past Medical Hx - Past Medical History Previous Medical History?: Yes Hx Hypertension: Yes Hx CVA: No Hx Heart Attack/AMI: No Hx Congestive Heart Failure: No Hx Diabetes: No Hx Pulmonary Embolism: No Hx GERD: No Hx Liver Disease: Yes (CIRRHOSIS) Hx Renal Disease: No Hx Sickle Cell Disease: No Hx Arthritis: Yes (knees arms hands) Hx Headaches / Migraines: No Hx Seizures: No Hx Kidney Stones: No Hx Psychiatric Treatment: Yes (anxiety, DEPRESSION) Hx Asthma: No Hx COPD: No Hx Tuberculosis: No Hx Dementia: No Hx HIV: No Additional medical history: psoriasis - Surgical History Past Surgical History?: Yes Hx Appendectomy: Yes Additional Surgical History: - Social History Smoking Status: Former Smoker Substance Use Type: None - Medications Home Medications: Home Medications Medication Instructions Recorded Confirmed Last Taken Type Folic Acid [Folvite] 1 mg PO QDAY #30 tablet 11/12/19 Unknown Rx Magnesium Oxide [Mag-Ox] 400 mg PO BID #14 tablet 11/12/19 11/11/19 Unknown Rx Multivitamin Tab W-MINERAL 1 each PO QDAY #30 tablet 11/12/19 Unknown Rx [Multiple Vitamin/Mineral (Theragran M)] Pantoprazole [Protonix TAB] 40 mg PO QDAY #30 tablet 11/12/19 Unknown Rx Thiamine [Vitamin B-1] 100 mg PO QDAY #100 tablet 11/12/19 Unknown Rx Triamcinolone 0.1% [Kenalog 0.1% 1 applic TP BID #1 tube 11/12/19 Unknown Rx CREAM] cephALEXin [Keflex] 500 mg PO QID #28 capsule 11/12/19 Unknown Rx diphenhydrAMINE [Benadryl CAP] 25 mg PO Q6HR PRN #15 capsule 11/12/19 Unknown Rx polyethylene glycoL 3350 [Miralax 17 gm PO QDAY PRN #30 powd.pack 11/12/19 Unknown Rx 3350] predniSONE [Deltasone] 1 dose PO QDAY #72 tab 11/12/19 Unknown Rx Mometasone Furoate [Elocon] 1 applicatio TP QDAY #45 cream..g. 12/20/19 Unknown Rx predniSONE [Deltasone] 20 mg PO QDAY #7 tab 12/20/19 Unknown Rx ED Physical Exam - General Limitations: No Limitations General appearance: alert, in no apparent distress - Head Head exam: Present: atraumatic, normocephalic - Eye Eye exam: Present: normal appearance, PERRL Pupils: Present: normal accommodation - Neck Neck exam: Present: normal inspection - Respiratory Respiratory exam: Present: normal lung sounds bilaterally. Absent: respiratory distress - Neurological Exam Neurological exam: Present: oriented X3, CN II-XII intact - Psychiatric Psychiatric exam: Present: normal affect. Absent: flat affect, manic - Skin Skin exam: Present: erythema, other (Excoriated rash to the legs with some broken skin. Several areas of plaque-like scaly rash to her torso). Absent: dry, intact ED Course Vital Signs 12/20/19 12/20/19 12/20/19 04:19 08:50 08:55 Temperature 97.8 F 97.5 F L Pulse Rate 104 H 100 H Respiratory 18 20 17 Rate Blood Pressure 97/71 117/83 O2 Sat by Pulse 99 100 Oximetry - Consultations Consultation #1: 12/20/19 09:06 Case discussed with attending Dr. Pizarro who also had [id number] plan is to obtain a CBC and a BMP to ensure no renal failure. We will also give her a shot of steroids and pain control. ED Medical Decision Making - Lab Data Result diagrams: 12/20/19 08:20 12/20/19 08:20 Critical care attestation.: If time is entered above; I have spent that time in minutes in the direct care of this critically ill patient, excluding procedure time. ED Disposition Clinical Impression: Polyarthralgia Disposition: DC- TO HOME OR SELFCARE Is pt being admited?: No Does the pt Need Aspirin: No Condition: Stable Instructions: Arthralgia (ED) Prescriptions: predniSONE [Deltasone] 20 mg PO QDAY #7 tab Mometasone Furoate [Elocon] 1 applicatio TP QDAY #45 cream..g. Referrals: PRIMARY CARE, [Primary Care Provider] - 3-5 Days
[2019-12-20 09:05] LABS: Platelet Count 81 K/mm3 (140-440); Red Cell Distribution Width 22.4 % (13.2-15.2)
[2019-12-20 09:13] LABS: BUN/Creatinine Ratio 5; Blood Urea Nitrogen 2 mg/dL (7-17); Calcium 7.6 mg/dL (8.4-10.2); Hemolysis Index 7
== END 2019-12-20 10:00 | disposition home or self-care (01) ==
LOC: ED 04:15
DX: M25.50 Pain in unspecified joint (principal); I10 Essential (primary) hypertension; F41.9 Anxiety disorder, unspecified; F32.89 Other specified depressive episodes; K74.69 Other cirrhosis of liver; M13.88 Other specified arthritis, other site; L40.8 Other psoriasis; Z90.49 Acquired absence of other specified parts of digestive tract; Z98.890 Other specified postprocedural states; Z87.891 Personal history of nicotine dependence; Z79.899 Other long term (current) drug therapy
CPT/HCPCS: 36415; 80048; 85027; 96372; 99283; J2930

== ENCOUNTER 2020-02-07 15:32 | Emergency (ER) | payer MEDICAID ==
[2020-02-07 17:47] VITALS: BP 118/82
--- NOTE | 2020-02-07 18:39 | Event Note ---
ED Screening Note ED Screening Note: a/c pain ble 3rd time to ER in last month does not follow up she states pcp wont see her because of covid out of pain meds This initial assessment/diagnostic orders/clinical plan/treatment(s) is/are subject to change based on patients health status, clinical progression and re- assessment by fellow clinical providers in the ED. Further treatment and workup at subsequent clinical providers discretion. Patient/guardian urged not to elope from the ED as their condition may be serious if not clinically assessed and managed. Initial orders include:
--- NOTE | 2020-02-07 18:42 | Emergency Department Report ---
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 - ROS Review of Systems: WEEPING FROM BLE AC PSORIASIS PAIN IN LEGS NO CP NO SOB NO FEVER NO CHILLS NO COUGH - Exam Vital Signs: Vital Signs 02/07/20 02/07/20 17:47 18:37 Temperature 97.8 F 97.8 F Pulse Rate 81 81 Respiratory 18 18 Rate Blood Pressure 118/82 Blood Pressure 118/82 [Left] O2 Sat by Pulse 98 98 Oximetry Physical Exam: A/C LESION ON BLE PATCHY AREAS OF EXCORIATION NO PURULENT DRAINAGE AMBULATORY NON TOXIC ON EXAM MSE screening note: Focused history and physical exam performed. Due to findings the following was ordered: NO LIFE THREAT DC HOME WITH RX FOR KENALOG OTC PAIN MANAGEMENT FOLLOW UP WITH PCP Patient discussed with doctor:: ROBIN GARCIA ED Disposition for MSE Clinical Impression: Psoriasis Disposition: Z MED SCREENING EXAM-LEFT Is pt being admited?: No Does the pt Need Aspirin: No Condition: Stable Additional Instructions: SEE PCP SANDRA REFERRAL BELOW Prescriptions: Triamcinolone 0.1% [Kenalog 0.1% CREAM] 1 applic TP BID #1 tube Referrals: NACHO YU MD [Staff Physician] - 3-5 Days Time of Disposition: 18:44
== END 2020-02-07 18:57 | disposition left against medical advice (07) ==
LOC: ED 15:32
DX: M79.89 Other specified soft tissue disorders (principal); Z53.21 Procedure and treatment not carried out due to patient leaving prior to being seen by health care provider

== ENCOUNTER 2020-02-07 20:22 | Emergency (ER) | payer MEDICAID ==
--- NOTE | 2020-02-07 20:33 | Emergency Department Report ---
Stated Complaint: BILATERAL LEG PAIN Time Seen by Provider: 02/07/20 20:33 - HPI History of Present Illness: see MSE note from just couple hours ago pt mad because she is having to wait for transport. she thinks signing in will speed up her ride MSE screening note: Focused history and physical exam performed. Due to findings the following was ordered: Patient discussed with doctor:: ROBIN GARCIA ED Disposition for MSE Condition: Stable
== END 2020-02-07 20:35 | disposition left against medical advice (07) ==
LOC: ED 20:22
DX: M79.605 Pain in left leg (principal); M79.604 Pain in right leg; Z53.21 Procedure and treatment not carried out due to patient leaving prior to being seen by health care provider

== ENCOUNTER 2020-02-14 19:16 | Emergency (ER) | payer MEDICAID ==
[2020-02-14 19:33] VITALS: BP 101/68
[2020-02-14] MEDS ORDERED: HYDROcodone/ACETAMINOPHEN 5-325 MG TAB PO ONE (21:04)
[2020-02-14 21:26] LABS: Basophils % (Auto) 0.5 % (0.0-1.8); Eosinophils # (Auto) 0.1 K/mm3 (0.0-0.4); Eosinophils % (Auto) 2.1 % (0.0-4.3); Hematocrit 34.7 % (30.3-42.9); Hemoglobin 10.8 gm/dl (10.1-14.3); Lymphocytes # (Auto) 1.4 K/mm3 (1.2-5.4); Lymphocytes % (Auto) 24.7 % (13.4-35.0); Mean Corpuscular HGB Conc 31 % (30-34); Mean Corpuscular Volume 89 fl (79-97); Monocytes # (Auto) 0.7 K/mm3 (0.0-0.8); Monocytes % (Auto) 11.7 % (0.0-7.3); Platelet Count 103 K/mm3 (140-440); Red Blood Count 3.89 M/mm3 (3.65-5.03)
--- NOTE | 2020-02-14 21:29 | Emergency Department Report ---
ED General Adult HPI - General Chief complaint: Pain General Stated complaint: BODY PAIN Time Seen by Provider: 02/14/20 20:48 Source: patient Mode of arrival: Ambulatory Limitations: Other - History of Present Illness Initial comments: Patient is a 49-year-old female with a history of psoriasis, ETOH abuse, and anxiety. Seen on 02/07/2024 bilateral lower extremity cellulitis And body aches. Started on Kenalog ointment and [id number] NSAIDs for same. Patient presents tonight for increased pain and aching. States rash is worse. There is no fever or chills. However patient does note multiple open lesions to bilateral lower extremities. This is a chronic disease over the past 5 years. Patient states she is not seen a primary care physician however she was referred to dermatology on 621 after admission for same. States she was unable to follow-up with dermatology. Symptoms are exacerbated by movement and activity. Symptoms are relieved by nothing tried. Patient states she lives with her daughter. However body aches prevents her from doing daily chores at home i.e. cooking and cleaning. Onset/Timin -: days(s) Location: lower extremity Radiation: extremity Severity scale (0 -10): 7 Quality: aching Consistency: constant Improves with: none Worsens with: movement Associated Symptoms: rash (weeping gabrielle) Treatments Prior to Arrival: none - Related Data Previous Rx's Medication Instructions Recorded Last Taken Type Folic Acid [Folvite] 1 mg PO QDAY #30 tablet 11/12/19 Unknown Rx Triamcinolone 0.1% [Kenalog 0.1% 1 applic TP BID #1 tube 02/07/20 Unknown Rx CREAM] Clindamycin [Clindamycin CAP] 300 mg PO Q8H 7 Days #21 cap 02/14/20 Unknown Rx traMADoL [Ultram] 50 mg PO Q6HR PRN #12 tablet 02/14/20 Unknown Rx Allergies Allergy/AdvReac Type Severity Reaction Status Date / Time No Known Allergies Allergy Verified 12/01/19 16:01 ED Review of Systems ROS: Stated complaint: BODY PAIN Other details as noted in HPI Constitutional: denies: chills, fever Eyes: denies: eye pain, eye discharge, vision change ENT: denies: ear pain, throat pain Respiratory: denies: cough, shortness of breath, wheezing Cardiovascular: denies: chest pain, palpitations Endocrine: no symptoms reported Gastrointestinal: denies: abdominal pain, nausea, diarrhea Genitourinary: denies: urgency, dysuria, discharge Musculoskeletal: arthralgia Skin: rash (mod erythema , dry flake, mild weeping ), lesions Neurological: denies: headache, weakness, paresthesias Psychiatric: denies: anxiety, depression Hematological/Lymphatic: denies: easy bleeding, easy bruising ED Past Medical Hx - Past Medical History Previous Medical History?: Yes Hx Hypertension: Yes Hx CVA: No Hx Heart Attack/AMI: No Hx Congestive Heart Failure: No Hx Diabetes: No Hx Pulmonary Embolism: No Hx GERD: No Hx Liver Disease: Yes (CIRRHOSIS) Hx Renal Disease: No Hx Sickle Cell Disease: No Hx Arthritis: Yes (knees arms hands) Hx Headaches / Migraines: No Hx Seizures: No Hx Kidney Stones: No Hx Psychiatric Treatment: Yes (anxiety, DEPRESSION) Hx Asthma: No Hx COPD: No Hx Tuberculosis: No Hx Dementia: No Hx HIV: No Additional medical history: psoriasis - Surgical History Past Surgical History?: Yes Hx Appendectomy: Yes Additional Surgical History: - Social History Smoking Status: Never Smoker Substance Use Type: None - Medications Home Medications: Home Medications Medication Instructions Recorded Confirmed Last Taken Type Folic Acid [Folvite] 1 mg PO QDAY #30 tablet 20 01/04/20 Unknown Rx Triamcinolone 0.1% [Kenalog 0.1% 1 applic TP BID #1 tube 02/07/20 Unknown Rx CREAM] Clindamycin [Clindamycin CAP] 300 mg PO Q8H 7 Days #21 cap 02/14/20 Unknown Rx traMADoL [Ultram] 50 mg PO Q6HR PRN #12 tablet 02/14/20 Unknown Rx ED Physical Exam - General Limitations: Other General appearance: alert, in no apparent distress - Head Head exam: Present: atraumatic, normocephalic - Eye Eye exam: Present: normal appearance, PERRL, EOMI Pupils: Present: normal accommodation - ENT ENT exam: Present: mucous membranes moist - Neck Neck exam: Present: normal inspection, full ROM. Absent: tenderness - Respiratory Respiratory exam: Present: normal lung sounds bilaterally. Absent: respiratory distress, wheezes, stridor, chest wall tenderness - Cardiovascular Cardiovascular Exam: Present: regular rate, normal rhythm, normal heart sounds - GI/Abdominal GI/Abdominal exam: Present: soft, normal bowel sounds. Absent: distended, tenderness, bruit, hernia - Rectal Rectal exam: Present: deferred - Extremities Exam Extremities exam: Present: full ROM, tenderness, normal capillary refill, other (moderat erythema, multiple small lesions weeping, serous , no fever distal pulses intact ). Absent: pedal edema - Back Exam Back exam: Present: normal inspection, full ROM. Absent: tenderness, CVA tenderness (R), CVA tenderness (L) - Neurological Exam Neurological exam: Present: alert, oriented X3 - Psychiatric Psychiatric exam: Present: normal affect, normal mood - Skin Skin exam: Present: warm, dry, normal color, rash, erythema, urticaria, other (lesions small serous output ) ED Course Vital Signs 02/14/20 02/14/20 19:30 21:16 Temperature 97.5 F L Pulse Rate 103 H Respiratory 18 18 Rate Blood Pressure 101/68 O2 Sat by Pulse 98 Oximetry ED Medical Decision Making - Lab Data Result diagrams: 02/14/20 21:10 02/14/20 21:10 - Medical Decision Making pain improved, wbc: normal, plan, Clindamycin po , continue kenolog oint follow up with dermatology, ultram prn pain, follow up with dermatology as previous scheduled, follow up with primary care doctor in 2 days. Critical care attestation.: If time is entered above; I have spent that time in minutes in the direct care of this critically ill patient, excluding procedure time. ED Disposition Clinical Impression: Bilateral cellulitis of lower leg Disposition: DC-01 TO HOME OR SELFCARE Is pt being admited?: No Does the pt Need Aspirin: No Condition: Stable Instructions: Cellulitis (ED) Prescriptions: Clindamycin [Clindamycin CAP] 300 mg PO Q8H 7 Days #21 cap traMADoL [Ultram] 50 mg PO Q6HR PRN #12 tablet PRN Reason: Pain Referrals: NACHO YU MD [Staff Physician] - 2-3 Days GALEN NARANJO MD [Referring] - 2-3 Days
[2020-02-14 21:35] LABS: Red Cell Distribution Width 24.8 % (13.2-15.2)
[2020-02-14 21:46] LABS: Alanine Aminotransferase 23 units/L (7-56); Albumin 2.5 g/dL (3.9-5); Calcium 7.6 mg/dL (8.4-10.2); Hemolysis Index 1
[2020-02-14 21:58] LABS: BUN/Creatinine Ratio 3; Blood Urea Nitrogen 1 mg/dL (7-17)
== END 2020-02-14 23:41 | disposition home or self-care (01) ==
LOC: ED 19:16
DX: L03.116 Cellulitis of left lower limb (principal); L03.115 Cellulitis of right lower limb; I10 Essential (primary) hypertension; M19.91 Primary osteoarthritis, unspecified site; F32.9 Major depressive disorder, single episode, unspecified; Z90.49 Acquired absence of other specified parts of digestive tract; Z98.890 Other specified postprocedural states; Z79.2 Long term (current) use of antibiotics; Z79.899 Other long term (current) drug therapy
CPT/HCPCS: 36415; 80053; 85025

== ENCOUNTER 2020-03-01 03:24 | Emergency (ER) | payer MEDICAID ==
--- NOTE | 2020-03-01 05:02 | XRay Report ---
CHEST 1 VIEW INDICATION / CLINICAL INFORMATION: swelling to legs. COMPARISON: 12/01/2019 FINDINGS: SUPPORT DEVICES: None. HEART / MEDIASTINUM: No significant abnormality. LUNGS / PLEURA: No significant pulmonary or pleural abnormality. No pneumothorax. ADDITIONAL FINDINGS: No significant additional findings. IMPRESSION: No acute disease or interval change from 12/01/2019 Signer Name: Demetri Katz MD FACR Signed: 03/01/2020 4:58 AM Workstation Name: [id number]
[2020-03-01 05:05] LABS: Basophils % (Auto) 0.6 % (0.0-1.8); Eosinophils # (Auto) 0.2 K/mm3 (0.0-0.4); Eosinophils % (Auto) 2.8 % (0.0-4.3); Hematocrit 31.3 % (30.3-42.9); Lymphocytes # (Auto) 0.9 K/mm3 (1.2-5.4); Lymphocytes % (Auto) 14.7 % (13.4-35.0); Mean Corpuscular HGB Conc 32 % (30-34); Mean Corpuscular Volume 91 fl (79-97); Monocytes # (Auto) 0.7 K/mm3 (0.0-0.8); Monocytes % (Auto) 10.9 % (0.0-7.3); Platelet Count 142 K/mm3 (140-440); Red Blood Count 3.43 M/mm3 (3.65-5.03)
[2020-03-01 05:11] LABS: Alanine Aminotransferase 15 units/L (7-56); Albumin 2.2 g/dL (3.9-5); Blood Urea Nitrogen 7 mg/dL (7-17); Calcium 7.5 mg/dL (8.4-10.2); Hemolysis Index 4
[2020-03-01 05:23] LABS: BUN/Creatinine Ratio 14
[2020-03-01] MEDS ORDERED: POTASSIUM CHLORIDE ER 20 MEQ TAB PO ONE (06:37)
[2020-03-01] MEDS ORDERED: HYDROmorphone 1 MG/1 ML INJ IV ONE ×2 (06:44→09:05)
[2020-03-01] MEDS ORDERED: LACTATED RINGERS 500 ML IV ONE ×2 (06:44→10:48)
--- NOTE | 2020-03-01 06:46 | Emergency Department Report ---
ED General Adult HPI - General Chief complaint: Extremity Problem,Nontraumatic Stated complaint: SWELLING BOTH LEGS,GRACIA PUI?: No Time Seen by Provider: 03/01/20 06:21 Source: patient, RN notes reviewed Mode of arrival: Stretcher Limitations: No Limitations, Physical Limitation - History of Present Illness Initial comments: The patient is a 49-year-old female. She is not known to myself previously. Past medical history is complex, including psoriasis, chronic rash, likely psoriatic in nature, was recently admitted to this hospital for skin rash and generalized abdominal pain, was referred to outpatient laboratory chemical assistant, Matt Rich. She has not followed up. She was recently admitted to this hospital, initiated on vancomycin, cultures were negative, started on Keflex, also given topical steroid cream. She also has a history of alcoholic cirrhosis with ascites, has been abstinent for almost 6 months. Also has a history of hypomagnesemia, renal insufficiency, and esophageal varices, chronic otic discharge, was discharged on ciprofloxacin otic twice daily Today, the patient presents to the ER with a complaint of shortness of breath, diffuse myalgias, chronic skin rash, malaise, fatigue. No fever. No chest pain. No abdominal pain. No vomiting. No dysuria. The symptoms are chronic, but got worse over the past few days. She reports that she has difficulty ambulating without assistance, she endorses bilateral leg cramping with ambulation, and she has chronic lower extremity swelling. She is not been able to follow-up as an outpatient secondary to multiple reasons. She does live at home with some children. She came here today because "my child brought me here." -: Gradual, days(s), week(s) Location: back, abdomen, left, right, upper extremity, lower extremity Radiation: non-radiation Severity scale (0 -10): 9 Quality: aching Consistency: constant Improves with: none Worsens with: movement - Related Data Previous Rx's Medication Instructions Recorded Last Taken Type Folic Acid [Folvite] 1 mg PO QDAY #30 tablet 11/12/19 Unknown Rx Triamcinolone 0.1% [Kenalog 0.1% 1 applic TP BID #1 tube 02/07/20 Unknown Rx CREAM] Clindamycin [Clindamycin CAP] 300 mg PO Q8H 7 Days #21 cap 02/14/20 Unknown Rx traMADoL [Ultram] 50 mg PO Q6HR PRN #12 tablet 02/14/20 Unknown Rx Ciprofloxacin HCl/Dexameth 2 drop AU BID #7.5 ml 03/01/20 Unknown Rx [Ciprodex Otic Suspension] Lactulose [Cephulac] 20 gm PO QDAY #600 ml 03/01/20 Unknown Rx Loperamide [Imodium] 2 mg PO Q2HR PRN #30 capsule 03/01/20 Unknown Rx Potassium Chloride 20 meq PO BID #60 packet 03/01/20 Unknown Rx Triamcinolone 0.1% [Kenalog] 1 applic TP BID #1 tube 03/01/20 Unknown Rx Allergies Allergy/AdvReac Type Severity Reaction Status Date / Time No Known Allergies Allergy Verified 12/01/19 16:01 ED Review of Systems ROS: Stated complaint: SWELLING BOTH LEGS,GRACIA Other details as noted in HPI Constitutional: malaise, weakness. denies: fever Eyes: denies: eye discharge ENT: denies: congestion Respiratory: shortness of breath Cardiovascular: edema. denies: chest pain Gastrointestinal: denies: abdominal pain, nausea, vomiting, diarrhea Genitourinary: denies: dysuria Musculoskeletal: back pain, joint swelling, arthralgia, myalgia Skin: rash, lesions Neurological: as per HPI, weakness Psychiatric: anxiety Hematological/Lymphatic: denies: easy bleeding ED Past Medical Hx - Past Medical History Previous Medical History?: Yes Hx Hypertension: Yes Hx CVA: No Hx Heart Attack/AMI: No Hx Congestive Heart Failure: No Hx Diabetes: No Hx Pulmonary Embolism: No Hx GERD: No Hx Liver Disease: Yes (CIRRHOSIS) Hx Renal Disease: No Hx Sickle Cell Disease: No Hx Arthritis: Yes (knees arms hands) Hx Headaches / Migraines: No Hx Seizures: No Hx Kidney Stones: No Hx Psychiatric Treatment: Yes (anxiety, DEPRESSION) Hx Asthma: No Hx COPD: No Hx Tuberculosis: No Hx Dementia: No Hx HIV: No Additional medical history: psoriasis - Surgical History Hx Appendectomy: Yes Additional Surgical History: - Social History Smoking Status: Never Smoker Substance Use Type: None - Medications Home Medications: Home Medications Medication Instructions Recorded Confirmed Last Taken Type Folic Acid [Folvite] 1 mg PO QDAY #30 tablet 11/12/19 01/04/20 Unknown Rx Triamcinolone 0.1% [Kenalog 0.1% 1 applic TP BID #1 tube 02/07/20 Unknown Rx CREAM] Clindamycin [Clindamycin CAP] 300 mg PO Q8H 7 Days #21 cap 02/14/20 Unknown Rx traMADoL [Ultram] 50 mg PO Q6HR PRN #12 tablet 02/14/20 Unknown Rx Ciprofloxacin HCl/Dexameth 2 drop AU BID #7.5 ml 03/01/20 Unknown Rx [Ciprodex Otic Suspension] Lactulose [Cephulac] 20 gm PO QDAY #600 ml 03/01/20 Unknown Rx Loperamide [Imodium] 2 mg PO Q2HR PRN #30 capsule 03/01/20 Unknown Rx Potassium Chloride 20 meq PO BID #60 packet 03/01/20 Unknown Rx Triamcinolone 0.1% [Kenalog] 1 applic TP BID #1 tube 03/01/20 Unknown Rx ED Physical Exam - General Limitations: Physical Limitation General appearance: alert, anxious, in distress, obese - Head Head exam: Present: atraumatic, normocephalic - Eye Eye exam: Present: normal appearance, EOMI. Absent: nystagmus - ENT ENT exam: Present: normal exam, normal orophraynx, mucous membranes moist, other (Psoriatic rash noted bilaterally. There is erythematous crusting noted in the bilateral helices, and external auditory canals. Whitish discharge noted in the right external auditory canal. Tympanic membranes without significant erythema. There is no mastoid tenderness.) - Neck Neck exam: Present: normal inspection, full ROM. Absent: tenderness, meningismus - Respiratory Respiratory exam: Present: normal lung sounds bilaterally. Absent: respiratory distress, wheezes, rales, rhonchi, stridor, decreased breath sounds - Cardiovascular Cardiovascular Exam: Present: normal rhythm, tachycardia, normal heart sounds. Absent: systolic murmur, diastolic murmur, rubs, gallop - GI/Abdominal GI/Abdominal exam: Present: soft, distended, hernia (There is a midline hernia noted without tenderness. There is mild diffuse abdominal distention with a fluid wave. There is no abdominal tenderness). Absent: tenderness, guarding, rebound, rigid, pulsatile mass - Extremities Exam Extremities exam: Present: full ROM, tenderness, pedal edema, calf tenderness, other (1+ femoral pulses are appreciated bilaterally. 1+ bilateral radial pulses are appreciated bilaterally. Pedal pulses are not appreciated. Patient moving 4 extremities spontaneously. The muscular compartments are soft). A bsent: normal inspection (Diffuse psoriatic rash is noted on the bilateral lower extremities, chronic erythema is noted, without pus or streaking.) - Back Exam Back exam: Present: rash noted (Chronic psoriatic rash noted to the bilateral paralumbar region. There is chronic appearing erythema, without pus or streaking). Absent: normal inspection, tenderness, paraspinal tenderness - Neurological Exam Neurological exam: Present: alert, other (No facial droop. Tongue midline. Extraocular movements intact bilaterally. Facial sensation intact to light touch in V1, V2, V3 distribution bilaterally. 5 and a 5 strength in 4 extremities. Sensation intact to light touch in 4 extremities.) - Psychiatric Psychiatric exam: Present: anxious - Skin Skin exam: Present: dry, rash, erythema. Absent: urticaria, vesicles, petechiae, pallor, abrasion, ecchymosis ED Course Vital Signs 03/01/20 03/01/20 03/01/20 03:55 06:29 06:31 Temperature 97.3 F L Pulse Rate 105 H 100 H 100 H Respiratory 20 23 20 Rate Blood Pressure 98/73 Blood Pressure [Left] O2 Sat by Pulse 100 100 100 Oximetry 03/01/20 03/01/20 03/01/20 06:35 06:45 07:01 Temperature 97.6 F Pulse Rate 100 H 101 H 97 H Respiratory 18 17 16 Rate Blood Pressure 114/87 114/87 Blood Pressure 114/83 [Left] O2 Sat by Pulse 100 100 100 Oximetry 03/01/20 03/01/20 03/01/20 07:15 07:31 07:45 Temperature Pulse Rate 97 H 100 H 101 H Respiratory 17 18 18 Rate Blood Pressure 114/87 114/87 114/87 Blood Pressure [Left] O2 Sat by Pulse 98 96 98 Oximetry 03/01/20 03/01/20 03/01/20 08:01 08:15 08:31 Temperature Pulse Rate 97 H 104 H 102 H Respiratory 18 15 23 Rate Blood Pressure 114/87 114/87 114/87 Blood Pressure [Left] O2 Sat by Pulse 99 100 98 Oximetry 03/01/20 03/01/20 03/01/20 08:45 08:54 09:01 Temperature Pulse Rate 101 H 100 H Respiratory 21 20 21 Rate Blood Pressure 114/87 114/87 Blood Pressure [Left] O2 Sat by Pulse 98 100 97 Oximetry 03/01/20 03/01/20 03/01/20 09:29 09:31 09:45 Temperature Pulse Rate 93 H 100 H Respiratory 14 Rate Blood Pressure 103/68 103/68 103/68 Blood Pressure [Left] O2 Sat by Pulse 98 97 Oximetry 03/01/20 03/01/20 03/01/20 10:00 10:15 10:30 Temperature Pulse Rate 89 91 H 88 Respiratory 10 L 11 L 8 L Rate Blood Pressure 107/73 98/59 91/65 Blood Pressure [Left] O2 Sat by Pulse 99 97 Oximetry 03/01/20 03/01/20 10:45 11:00 Temperature Pulse Rate 96 H 102 H Respiratory 18 19 Rate Blood Pressure 91/65 133/80 Blood Pressure [Left] O2 Sat by Pulse 99 98 Oximetry - Reevaluation(s) Reevaluation #1: 03/01/20 07:09 Differential diagnosis, including but not limited to: Psoriatic rash, chronic, not superinfected, lupus pain, pneumonia, pulmonary embolism, peripheral artery disease, peripheral vascular disease, DVT, deconditioning Assessment and plan: 49-year-old female with multiple complaints. Complaints 1, presumed psoriatic rash. Appears to be chronic, poorly managed, without evidence of superinfection at this time. She was referred to an outpatient laboratory chemical assistant during her recent hospitalization. We will re-refer her to outpatient dermatology, and continue topical therapy. She will need to follow-up as an outpatient. Complaints 2, shortness of breath. Tachycardia, likely secondary to pain, perhaps dehydration. Has poor mobility, and reportedly has lupus. Not hypoxic, not significantly tachypneic. Check bilateral lower extremity DVT study, and d-dimer to risk stratify for pulmonary embolism. Start IV fluids. EKG fairly unremarkable, appears to be unchanged from prior, troponin negative x1, the symptoms have been going on for over 8 hours. As per the [employer] clinical policy, acute myocardial infarction is ruled out, patient at low risk for major adverse cardiac event as per heart score. Complaints #3, myalgias, poor mobility. Likely secondary to her multiple medical issues. This point time, does not meet criteria for hospitalization. We will treat her pain, initiate IV fluids, have case management evaluation to determine what services patient may be eligible for at home. Reassess after initial data points. We will replace her/replete electrolytes Reevaluation #2: 03/01/20 11:45 Patient reassessed multiple times. CT scan of the chest is negative for acute findings. Vital signs have stabilized. Lower extremity DVT study negative for acute findings. Arterial duplex study negative for acute arterial insufficiency. Patient has been observed in this ER for a prolonged period of time without clinical decompensation. She has a chronic pain component, but this does not represent an emergency medical condition. She is also seen by case management, who will be able to set the patient up for home physical therapy through [facility]. Reevaluation #3: 03/01/20 15:06 At the time of discharge patient was able to ambulate with a steady gait. She continued to ask for additional pain medication. I advised the patient that narcotic therapy is not appropriate for outpatient management. She was advised that she may take [id number] pain medication, and participate with rest, ice, compression, elevation. The patient was advised to follow-up with outpatient referrals that were provided to her. ED Medical Decision Making - Lab Data Result diagrams: 03/01/20 04:10 03/01/20 04:10 Vital Signs 03/01/20 03/01/20 06:35 06:45 Temperature 97.6 F Pulse Rate 100 H Respiratory 18 Rate Blood Pressure 114/83 [Left] O2 Sat by Pulse 100 Oximetry Lab Results 03/01/20 03/01/20 03/01/20 Range/Units 04:10 04:10 05:59 WBC 6.3 (4.5-11.0) K/mm3 RBC 3.43 L (3.65-5.03) M/mm3 Hgb 10.0 L (10.1-14.3) gm/dl Hct 31.3 (30.3-42.9) % MCV 91 (79-97) fl MCH 29 (28-32) pg MCHC 32 (30-34) % RDW 22.0 H (13.2-15.2) % Plt Count 142 (140-440) K/mm3 Lymph % (Auto) 14.7 (13.4-35.0) % Gillespie % (Auto) 10.9 H (0.0-7.3) % Eos % (Auto) 2.8 (0.0-4.3) % Baso % (Auto) 0.6 (0.0-1.8) % Lymph # 0.9 L (1.2-5.4) K/mm3 Gillespie # 0.7 (0.0-0.8) K/mm3 Eos # 0.2 (0.0-0.4) K/mm3 Baso # 0.0 (0.0-0.1) K/mm3 Seg Neutrophils % 71.0 H (40.0-70.0) % Seg Neutrophils # 4.4 (1.8-7.7) K/mm3 Sodium 131 L (137-145) mmol/L Potassium 2.8 L* (3.6-5.0) mmol/L Chloride 97.3 L (98-107) mmol/L Carbon Dioxide 22 (22-30) mmol/L Anion Gap 15 mmol/L BUN 7 (7-17) mg/dL Creatinine 0.5 L (0.6-1.2) mg/dL Estimated GFR > 60 ml/min BUN/Creatinine Ratio 14 % Glucose 129 H (65-100) mg/dL Calcium 7.5 L (8.4-10.2) mg/dL Magnesium (1.7-2.3) mg/dL Total Bilirubin 2.40 H (0.1-1.2) mg/dL AST 56 H (5-40) units/L ALT 15 (7-56) units/L Alkaline Phosphatase 306 H (35-129) units/L Total Creatine Kinase (30-135) units/L Troponin T < 0.010 (0.00-0.029) ng/mL Total Protein 6.5 (6.3-8.2) g/dL Albumin 2.2 L (3.9-5) g/dL Albumin/Globulin Ratio 0.5 % 03/01/20 Range/Units 06:10 WBC (4.5-11.0) K/mm3 RBC (3.65-5.03) M/mm3 Hgb (10.1-14.3) gm/dl Hct (30.3-42.9) % MCV (79-97) fl MCH (28-32) pg MCHC (30-34) % RDW (13.2-15.2) % Plt Count (140-440) K/mm3 Lymph % (Auto) (13.4-35.0) % Gillespie % (Auto) (0.0-7.3) % Eos % (Auto) (0.0-4.3) % Baso % (Auto) (0.0-1.8) % Lymph # (1.2-5.4) K/mm3 Gillespie # (0.0-0.8) K/mm3 Eos # (0.0-0.4) K/mm3 Baso # (0.0-0.1) K/mm3 Seg Neutrophils % (40.0-70.0) % Seg Neutrophils # (1.8-7.7) K/mm3 Sodium (137-145) mmol/L Potassium (3.6-5.0) mmol/L Chloride (98-107) mmol/L Carbon Dioxide (22-30) mmol/L Anion Gap mmol/L BUN (7-17) mg/dL Creatinine (0.6-1.2) mg/dL Estimated GFR ml/min BUN/Creatinine Ratio % Glucose (65-100) mg/dL Calcium (8.4-10.2) mg/dL Magnesium 1.80 (1.7-2.3) mg/dL Total Bilirubin (0.1-1.2) mg/dL AST (5-40) units/L ALT (7-56) units/L Alkaline Phosphatase (35-129) units/L Total Creatine Kinase 54 (30-135) units/L Troponin T (0.00-0.029) ng/mL Total Protein (6.3-8.2) g/dL Albumin (3.9-5) g/dL Albumin/Globulin Ratio % - EKG Data -: EKG Interpreted by Mi EKG shows normal: sinus rhythm Rate: tachycardia - EKG Data 03/01/20 07:12 The EKG today shows a sinus rhythm, 99 bpm, normal axis, QTC is prolonged at 485 ms, T wave inversions V2, the EKG is abnormal, the EKG is not a STEMI, the EKG appears to be unchanged from prior EKG from October 2019 - Radiology Data Radiology results: pending, report reviewed, image reviewed Print Report Referring Physician: ED DOC Patient Name: MAGY IYER Date of : 1970 Sex: Female Report Date: 2020-03-01 Report Status: Finalized Findings [facility] [address] [place] [address] XRay Report Signed Patient: MAGY IYER MR#: [id number] : 1970 Acct:[id number] Age/Sex: 49 / F ADM Date: 03/01/20 Loc: ED Attending Dr: Ordering Physician: SHERRIE CARRANZA MD Date of Service: 03/01/20 Procedure(s): XR chest 1V ap Accession Number(s): [id number] cc: ED MD DILLON Fluoro Time In Minutes: CHEST 1 VIEW INDICATION / CLINICAL INFORMATION: swelling to legs. COMPARISON: 12/01/2019 FINDINGS: SUPPORT DEVICES: None. HEART / MEDIASTINUM: No significant abnormality. LUNGS / PLEURA: No significant pulmonary or pleural abnormality. No pneumothorax. ADDITIONAL FINDINGS: No significant additional findings. IMPRESS ION: No acute disease or interval change from 12/01/2019 Signer Name: Demetri Katz MD FACR Signed: 03/01/2020 4:58 AM Workstation Name: [id number] Transcribed By: MS Dictated By: Demetri Katz MD Electronically Authenticated By: Demetri Katz MD Signed Date/Time: 03/01/20457 DD/ 6 TD/TT: Critical care attestation.: If time is entered above; I have spent that time in minutes in the direct care of this critically ill patient, excluding procedure time. ED Disposition Clinical Impression: Hypokalemia, SOB (shortness of breath), Psoriasis, Physical deconditioning, Generalized pain, Leg pain, Leg swelling Disposition: DC-01 TO HOME OR SELFCARE Is pt being admited?: No Does the pt Need Aspirin: No Condition: Stable Additional Instructions: Take the medications as needed/directed and prescribed. Rest, avoid heavy lifting and strenuous physical activities, patient will be set up for home physical therapy, it is very important that patient participate in physical therapy to regain strength, and functionality of her extremities. Patient may alternate ice packs and heat packs as needed for pain, and she may take [id number] Tylenol and/or Motrin as needed for pain. Recommend that patient follow-up with an outpatient primary care doctor within the next week. Recommend that patient follow-up with an outpatient laboratory chemical assistant, as previously referred, within the next 2 weeks. Recommend that patient abstain from alcohol consumption. Please return to the emergency room right away with new pain, worsening pain, migration of pain, projectile vomiting, change in mental status, confusion, inability to tolerate liquid feeds, new, worsened or different symptoms not present on the initial emergency room evaluation. Prescriptions: Lactulose [Cephulac] 20 gm PO QDAY #600 ml Ciprofloxacin HCl/Dexameth [Ciprodex Otic Suspension] 2 drop AU BID #7.5 ml Loperamide [Imodium] 2 mg PO Q2HR PRN #30 capsule PRN Reason: Diarrhea Triamcinolone 0.1% [Kenalog] 1 applic TP BID #1 tube Potassium Chloride 20 meq PO BID #60 packet Referrals: PRIMARY CAREMD [Primary Care Provider] - 3-5 Days [facility] [Provider Group] - 3-5 Days [facility] [Provider Group] - 3-5 Days NACHO YU MD [Staff Physician] - 3-5 Days GALEN NARANJO MD [Referring] - 3-5 Days
[2020-03-01 07:52] LABS: INR 1.19 (0.87-1.13)
[2020-03-01 07:53] LABS: Partial Thromboplastin Time 38.2 Sec. (24.2-36.6)
--- NOTE | 2020-03-01 10:01 | Cat Scan Report ---
CTA CHEST WITH IV CONTRAST INDICATION / CLINICAL INFORMATION: sob, lupus, + d dimer. TECHNIQUE: Axial CT images were obtained through the chest after injection of IV contrast. 3 plane MIP and/or 3D reconstructions were produced. All CT scans at this location are performed using CT dose reduction f or ALARA by means of automated exposure control. COMPARISON: 11/10/2019 FINDINGS: PULMONARY ARTERIES: No pulmonary emboli. THORACIC AORTA: No significant abnormality. HEART: No significant abnormality. CORONARY ARTERIES: No significant calcification. PLEURA: Pleural thickening is present on the left. No pneumothorax. LYMPH NODES: None LUNGS: Several faint nodular densities are present along the diaphragm measuring up to 0.5 cm in diam eter, predominantly on the right ADDITIONAL FINDINGS: None. UPPER ABDOMEN: The liver demonstrates a lobulated contour. Spleen is enlarged with varices upper abdo men as well as distal esophagus. Ascites present predominantly surrounding the liver. The distal esop hagus is thickened SKELETAL STRUCTURES: No significant osseous abnormality. IMPRESSION: 1. No CT evidence for pulmonary embolism. 2. Ascites 3. Cirrhosis with findings of portal hypertension with gastroesophageal varices 4. Faint nodular densities predominantly involving the right hemidiaphragm Signer Name: Akira Ac MD Signed: 03/01/2020 9:56 AM Workstation Name: [id number]
[2020-03-01 11:06] VITALS: BP 133/80
--- NOTE | 2020-03-01 11:17 | Vascular Lab Report ---
DUPLEX DOPPLER LOWER EXTREMITY VEINS, BILATERAL INDICATION / CLINICAL INFORMATION: lower ext swelling pain, claudication. TECHNIQUE: Duplex doppler imaging was performed through the veins of both lower extremities using venous nicola fede and other maneuvers. COMPARISON: None available. FINDINGS: RIGHT COMMON FEMORAL VEIN: Negative. RIGHT FEMORAL VEIN: Negative. RIGHT POPLITEAL VEIN: Negative. RIGHT CALF VEINS: Negative. LEFT COMMON FEMORAL VEIN: Negative. LEFT FEMORAL VEIN: Negative. LEFT POPLITEAL VEIN: Negative. LEFT CALF VEINS: Negative. ADDITIONAL FINDINGS: None. IMPRESSION: 1. No sonographic evidence for DVT in either lower extremity. Signer Name: Axel Clifton MD Signed: 03/01/2020 11:13 AM Workstation Name: [id number]
--- NOTE | 2020-03-01 11:21 | Vascular Lab Report ---
DUPLEX DOPPLER LOWER EXTREMITY ARTERIAL, BILATERAL INDICATION: weak pulses distal, claudication. TECHNIQUE: Arterial duplex examination of both lower extremities performed using B-mode, color flow and spectral Doppler assessment. FINDINGS: RIGHT: Common Femoral Artery: PSV 100 cm/sec. Triphasic waveform. Proximal SFA: PSV 105 cm/sec. Triphasic waveform. Mid SFA: PSV 106 cm/sec. Triphasic waveform. Distal SFA: PSV 79 cm/sec. Triphasic waveform. Popliteal artery: PSV 69 cm/sec. Triphasic waveform. Posterior tibial artery: PSV 52 cm/sec. Triphasic waveform. Dorsalis Pedis Artery: PSV 82 cm/sec. Triphasic waveform. LEFT: Common Femoral Artery: PSV 93 cm/sec. Triphasic waveform. Proximal SFA: PSV 69 cm/sec. Triphasic waveform. Mid SFA: PSV 104 cm/sec. Triphasic waveform. Distal SFA: PSV 64 cm/sec. Triphasic waveform. Popliteal artery: PSV 64 cm/sec. Triphasic waveform. Posterior tibial artery: PSV 59 cm/sec. Triphasic waveform. Dorsalis Pedis Artery: PSV 67 cm/sec. Triphasic waveform. IMPRESSION: No significant lower extremity peripheral artery disease. Lower extremity arterial structures are wid tobias patent with multiphasic waveforms. Doppler Waveform: * Triphasic is normal. * Biphasic is abnormal if clear transition from triphasic signal along vascular tree. * Monophasic is abnormal. Signer Name: Matteo Moran Jr, MD Signed: 03/01/2020 11:17 AM Workstation Name: [id number]
== END 2020-03-01 11:55 | disposition home or self-care (01) ==
LOC: ED 03:24
DX: E87.6 Hypokalemia (principal); L40.8 Other psoriasis; M79.18 Myalgia, other site; R06.02 Shortness of breath
CPT/HCPCS: 36415; 71045; 71275; 80053; 82550; 83735; 84484; 85025; 85379; 85610; 85730; 93005; 93925; 93970; 96374; 96376; 99284; J1170; J7120; Q9967

== ENCOUNTER 2020-03-07 10:59 | Inpatient (IN) | payer MEDICAID ==
--- NOTE | 2020-03-07 13:27 | Event Note ---
ED Screening Note Date of service: 03/07/20 Time: 13:24 ED Screening Note: This is a 49-year-old female who presents with a history of psoriasis who presents to the ED complaining of flaring up of her psoriasis as well as a lower abdominal mass/lump/pain sitting still at the 10 intensity. This initial assessment/diagnostic orders/clinical plan/treatment(s) is/are subject to change based on patients health status, clinical progression and re- assessment by fellow clinical providers in the ED. Further treatment and workup at subsequent clinical providers discretion. Patient/guardian urged not to elope from the ED as their condition may be serious if not clinically assessed and managed. Initial orders include: Labs, pain control, CT abdomen?
[2020-03-07 15:23] LABS: Basophils # (Auto) 0.1 K/mm3 (0.0-0.1); Eosinophils # (Auto) 0.2 K/mm3 (0.0-0.4); Eosinophils % (Auto) 3.3 % (0.0-4.3); Hematocrit 32.3 % (30.3-42.9); Hemoglobin 10.2 gm/dl (10.1-14.3); Lymphocytes # (Auto) 1.2 K/mm3 (1.2-5.4); Lymphocytes % (Auto) 18.8 % (13.4-35.0); Mean Corpuscular HGB Conc 32 % (30-34); Mean Corpuscular Volume 91 fl (79-97); Monocytes # (Auto) 0.7 K/mm3 (0.0-0.8); Monocytes % (Auto) 10.6 % (0.0-7.3); Platelet Count 230 K/mm3 (140-440); Red Blood Count 3.54 M/mm3 (3.65-5.03)
[2020-03-07 15:42] LABS: Red Cell Distribution Width 21.2 % (13.2-15.2)
[2020-03-07 15:44] LABS: Alanine Aminotransferase 12 units/L (7-56); Albumin 2.3 g/dL (3.9-5); Blood Urea Nitrogen 3 mg/dL (7-17); Calcium 7.9 mg/dL (8.4-10.2); Hemolysis Index 2
[2020-03-07 15:46] LABS: BUN/Creatinine Ratio 10
--- NOTE | 2020-03-07 22:04 | Cat Scan Report ---
CT ABDOMEN AND PELVIS WITHOUT CONTRAST HISTORY: pain/swelling. COMPARISON: CT abdomen/pelvis from 11/10/2019 TECHNIQUE: CT images of the abdomen and pelvis were obtained without administration of intravenous co ntrast. All CT scans at this location are performed using CT dose reduction for ALARA by means of au tomated exposure control. FINDINGS: Lungs/bones: Lung bases are clear. There is no acute osseous abnormality or significant DJD. Abdomen/pelvis: The liver is diffusely abnormal in appearance with surface nodularity, caudate hyper trophy, and somewhat geographic areas of low attenuation diffusely. There is also moderate volume asc ites, splenomegaly, and varices in the abdomen. The spleen, pancreas, adrenals, and proximal GI tract appear unremarkable. There is cholelithiasis wi thout wall thickening. Urinary bladder is mostly collapsed but otherwise unremarkable. The reproductive organs are unremarka ble. No acute colonic abnormality identified in this patient with diverticulosis. Wall thickening phyllis ng the proximal colon is fairly typical of portal enteropathy. Stable bilateral inguinal adenopathy. Small midline pelvic hernia containing fat and vessels again noted. No inflammatory change. IMPRESSION: 1. Cirrhosis with sequelae of portal venous hypertension including ascites, splenomegaly, and varices . There are geographic areas of low attenuation diffusely throughout the liver which may be seen with nodular regeneration and were also seen on the comparison exam. 2. Additional incidental findings as above. Signer Name: Bernard Duron MD Signed: 03/07/2020 9:59 PM Workstation Name: [id number]
--- NOTE | 2020-03-07 22:16 | Emergency Department Report ---
ED Abdominal Pain HPI - General Chief Complaint: Abdominal Pain Stated Complaint: ABD PAIN PUI?: No Time Seen by Provider: 03/07/20 22:11 Source: patient Mode of arrival: Ambulatory Limitations: No Limitations - History of Present Illness Initial Comments: Patient is a 49-year-old female that presents emergency room with complaints of lower abdominal pain. Patient states her pain is a 10 out of 10. Patient states that she has always generalized abdominal pain due to her cirrhosis but this time she is having lower abdominal pain. Patient states she is been taking ibuprofen for it which gives her minimal relief. Patient states her pain is better with rest and worse with movement and palpation. Patient denies nausea vomiting. Patient denies diarrhea. Patient denies fever and chills. Patient states her abdominal pain is worsening. Patient denies recent travel. Patient denies recent international travel. Patient denies exposure to the novel coronavirus. Patient denies sick contacts. Patient denies fever and chills. Patient denies cough. Patient denies diarrhea. Patient denies coming in contact with anybody with symptoms of the novel coronavirus. MD Complaint: abdominal pain -: Sudden, days(s) ( 2 days) Location: LLQ, RLQ Radiation: none Migration to: no migration Severity: severe Severity scale (0 -10): 10 Quality: stabbing Consistency: constant Improves With: rest Worsens With: movement Associated Symptoms: denies: nausea, vomiting, diarrhea, fever, chills, constipation, dysuria, hematemesis, hematochezia, melena, hematuria, syncope - Related Data Previous Rx's Medication Instructions Recorded Last Taken Type Folic Acid [Folvite] 1 mg PO QDAY #30 tablet 11/12/19 Unknown Rx Triamcinolone 0.1% [Kenalog 0.1% 1 applic TP BID #1 tube 02/07/20 Unknown Rx CREAM] Clindamycin [Clindamycin CAP] 300 mg PO Q8H 7 Days #21 cap 02/14/20 Unknown Rx traMADoL [Ultram] 50 mg PO Q6HR PRN #12 tablet 02/14/20 Unknown Rx Ciprofloxacin HCl/Dexameth 2 drop AU BID #7.5 ml 03/01/20 Unknown Rx [Ciprodex Otic Suspension] Lactulose [Cephulac] 20 gm PO QDAY #600 ml 03/01/20 Unknown Rx Loperamide [Imodium] 2 mg PO Q2HR PRN #30 capsule 03/01/20 Unknown Rx Potassium Chloride 20 meq PO BID #60 packet 03/01/20 Unknown Rx Triamcinolone 0.1% [Kenalog] 1 applic TP BID #1 tube 03/01/20 Unknown Rx Allergies Allergy/AdvReac Type Severity Reaction Status Date / Time No Known Allergies Allergy Verified 12/01/19 16:01 ED Review of Systems ROS: Stated complaint: ABD PAIN Other details as noted in HPI Constitutional: denies: chills, fever Eyes: denies: eye pain, eye discharge, vision change ENT: denies: ear pain, throat pain Respiratory: denies: cough, shortness of breath, wheezing Cardiovascular: denies: chest pain, palpitations Endocrine: no symptoms reported Gastrointestinal: abdominal pain. denies: nausea, diarrhea Genitourinary: denies: urgency, dysuria, discharge Musculoskeletal: denies: back pain, joint swelling, arthralgia Skin: denies: rash, lesions Neurological: denies: headache, weakness, paresthesias Psychiatric: denies: anxiety, depression Hematological/Lymphatic: denies: easy bleeding, easy bruising ED Past Medical Hx - Past Medical History Previous Medical History?: Yes Hx Hypertension: Yes Hx CVA: No Hx Heart Attack/AMI: No Hx Congestive Heart Failure: No Hx Diabetes: No Hx Pulmonary Embolism: No Hx GERD: No Hx Liver Disease: Yes (CIRRHOSIS) Hx Renal Disease: No Hx Sickle Cell Disease: No Hx Arthritis: Yes (knees arms hands) Hx Headaches / Migraines: No Hx Seizures: No Hx Kidney Stones: No Hx Psychiatric Treatment: Yes (anxiety, DEPRESSION) Hx Asthma: No Hx COPD: No Hx Tuberculosis: No Hx Dementia: No Hx HIV: No Additional medical history: psoriasis - Surgical History Past Surgical History?: Yes Hx Appendectomy: Yes Additional Surgical History: - Family History Family history: no significant - Social History Smoking Status: Never Smoker Substance Use Type: None - Medications Home Medications: Home Medications Medication Instructions Recorded Confirmed Last Taken Type Folic Acid [Folvite] 1 mg PO QDAY #30 tablet 11/12/19 01/04/20 Unknown Rx Triamcinolone 0.1% [Kenalog 0.1% 1 applic TP BID #1 tube 02/07/20 Unknown Rx CREAM] Clindamycin [Clindamycin CAP] 300 mg PO Q8H 7 Days #21 cap 02/14/20 Unknown Rx traMADoL [Ultram] 50 mg PO Q6HR PRN #12 tablet 02/14/20 Unknown Rx Ciprofloxacin HCl/Dexameth 2 drop AU BID #7.5 ml 03/01/20 Unknown Rx [Ciprodex Otic Suspension] Lactulose [Cephulac] 20 gm PO QDAY #600 ml 03/01/20 Unknown Rx Loperamide [Imodium] 2 mg PO Q2HR PRN #30 capsule 03/01/20 Unknown Rx Potassium Chloride 20 meq PO BID #60 packet 03/01/20 Unknown Rx Triamcinolone 0.1% [Kenalog] 1 applic TP BID #1 tube 03/01/20 Unknown Rx ED Physical Exam - General Limitations: No Limitations General appearance: alert, in no apparent distress - Head Head exam: Present: atraumatic, normocephalic - Eye Eye exam: Present: normal appearance - ENT ENT exam: Present: mucous membranes moist - Neck Neck exam: Present: normal inspection - Respiratory Respiratory exam: Present: normal lung sounds bilaterally. Absent: respiratory distress - Cardiovascular Cardiovascular Exam: Present: regular rate, normal rhythm. Absent: systolic murmur, diastolic murmur, rubs, gallop - GI/Abdominal GI/Abdominal exam: Present: distended, tenderness (Lower abdominal tenderness), guarding, normal bowel sounds - Rectal Rectal exam: Present: deferred - Extremities Exam Extremities exam: Present: normal inspection - Back Exam Back exam: Present: normal inspection - Neurological Exam Neurological exam: Present: alert, oriented X3 - Psychiatric Psychiatric exam: Present: normal affect, normal mood - Skin Skin exam: Present: warm, dry, other (Generalized psoriasis noted). Absent: rash ED Course Vital Signs 03/07/20 03/07/20 13:28 21:22 Temperature 97.4 F L 97.8 F Pulse Rate 108 H 114 H Respiratory 18 18 Rate Blood Pressure 124/105 121/86 O2 Sat by Pulse 99 100 Oximetry - Reevaluation(s) Reevaluation #1: I discussed all results with patient. I discussed plan of care with patient. Patient agrees with plan of care and admission. Patient to be admitted to the hospitalist service. 03/08/20 00:26 - Consultations Consultation #1: Hospitalist consulted for admission. Hospitalist to admit patient. 03/08/20 00:26 ED Medical Decision Making - Lab Data Result diagrams: 03/07/20 14:59 03/07/20 14:59 - Radiology Data Radiology results: report reviewed CT ABDOMEN AND PELVIS WITHOUT CONTRAST HISTORY: pain/swelling. COMPARISON: CT abdomen/pelvis from 11/10/2019 TECHNIQUE: CT images of the abdomen and pelvis were obtained without administration of intravenous contrast. All CT scans at this location are performed using CT dose reduction for ALARA by means of automated exposure control. FINDINGS: Lungs/bones: Lung bases are clear. There is no acute osseous abnormality or significant DJD. Abdomen/pelvis: The liver is diffusely abnormal in appearance with surface nodularity, caudate hypertrophy, and somewhat geographic areas of low attenuation diffusely. There is also moderate volume ascites, splenomegaly, and varices in the abdomen. The spleen, pancreas, adrenals, and proximal GI tract appear unremarkable. There is cholelithiasis without wall thickening. Urinary bladder is mostly collapsed but otherwise unremarkable. The reproductive organs are unremarkable. No acute colonic abnormality identified in this patient with d iverticulosis. Wall thickening along the proximal colon is fairly typical of portal enteropathy. S table bilateral inguinal adenopathy. Small midline pelvic hernia containing fat and vessels again noted. No inflammatory change. IMPRESSION: 1. Cirrhosis with sequelae of portal venous hypertension including ascites, splenomegaly, and varices. There are geographic areas of low attenuation diffusely throughout the liver which may be seen with nodular regeneration and were also seen on the comparison exam. 2. Additional incidental findings as above. - Medical Decision Making Patient is a 49-year-old female that presents emergency room with abdominal yuliya n. Patient abdominal pain is intractable. Patient's labs are remarkable for abnormal liver function and a UTI. Patient is given 0.5 Dilaudid and the patient still continues to complain of pain. Patient had a moderate volume ascites on the CT scan. Patient may require a therapeutic paracentesis in order to alleviate her pain. Patient admitted to the hospital service for further evaluation treatment. Patient given fluids and antibiotics in the ER. Patient admitted to the hospitalist service. - Differential Diagnosis Abdominal pain, abdominal distention, UTI, ascites Critical Care Time: Yes Critical care time in (mins) excluding proc time.: 35 Critical care attestation.: If time is entered above; I have spent that time in minutes in the direct care of this critically ill patient, excluding procedure time. Critical Care Time: 35 minutes ED Disposition Clinical Impression: Intractable abdominal pain Abdominal pain Qualifiers: Abdominal location: lower abdomen, unspecified Qualified Code(s): R10.30 - Lower abdominal pain, unspecified UTI (urinary tract infection) Qualifiers: Urinary tract infection type: acute cystitis Hematuria presence: with hematuria Qualified Code(s): N30.01 - Acute cystitis with hematuria Cirrhosis of liver Qualifiers: Hepatic cirrhosis type: other cirrhosis Qualified Code(s): K74.69 - Other cirrhosis of liver Ascites Qualifiers: Ascites type: other type Qualified Code(s): R18.8 - Other ascites Disposition: DC-09 OP ADMIT IP TO THIS HOSP Is pt being admited?: Yes Does the pt Need Aspirin: No Condition: Critical Time of Disposition: 00:24
[2020-03-07 23:05] LABS: Bilirubin,Urine NEG (Negative); Blood,Urine SM (Negative); Color,Urine Yellow (Yellow); Mucus,Urine 3+ /HPF
[2020-03-07 23:07] LABS: WBC,Urine > 182.0 /HPF (0.0-6.0)
[2020-03-07] MEDS ORDERED: SODIUM CHLORIDE 0.9% 500 ML 500 ML IV ONE (23:51)
[2020-03-07] MEDS ORDERED: CEFEPIME/NS 2 GM/100 ML 2 GM/100 ML BAG IV ONE (23:51)
[2020-03-07] MEDS ORDERED: HYDROmorphone 1 MG/1 ML INJ IV ONE (23:52)
[2020-03-08] MEDS ORDERED: HYDROmorphone 1 MG/1 ML INJ IV ONE (00:31)
[2020-03-08] MEDS ORDERED: ONDANSETRON 4 MG/2 ML INJ IV PRN (02:27)
--- NOTE | 2020-03-08 02:38 | History and Physical Report ---
History of Present Illness Date of examination: 03/08/20 Date of admission: 03/08/20 00:34 Chief complaint: Abdominal pain History of present illness: 49-year-old female with known history of liver cirrhosis, hypertension, depression and psoriasis presenting to the emergency room today complaining of abdominal pain. Abdominal pain is said to be generalized but more in the lower abdomen today. She has taken some ibuprofen without any significant improvement. Pain is 10/10 in severity and gets worse on exertion but improves upon resting. Patient denies any fever or chills, she denies any cough or shortness of breath, no chest pain, no vomiting or diarrhea. Patient denies any sick contacts and no recent travel. She denies contact with anyone with COVID-19. CT of the abdomen and pelvis today reveals moderate volume ascites. Urinalysis also reveals urinary tract infection. Past History Past Medical History: arthritis, hypertension, other (Liver cirrhosis, Depression, Psoriasis,) Past Surgical History: appendectomy, Social history: no significant social history Family history: no significant family history Medications and Allergies Allergies Allergy/AdvReac Type Severity Reaction Status Date / Time No Known Allergies Allergy Verified 12/01/19 16:01 Active Meds: Active Medications Acetaminophen (Tylenol) 650 mg PO Q4H PRN PRN Reason: Pain MILD(1-3)/Fever >100.5/FAULKNER Hydromorphone HCl (Dilaudid) 1 mg IV Q3H PRN PRN Reason: Pain, Moderate (4-6) Ceftriaxone Sodium (Rocephin/Ns 1 Gm/50 Ml) 1 gm in 50 mls @ 100 mls/hr IV Q24HR [facility]; Protocol Ondansetron HCl (Zofran) 4 mg IV Q8H PRN PRN Reason: Nausea And Vomiting Sodium Chloride (Sodium Chloride Flush Syringe 10 Ml) 10 ml IV BID FOREIGN Sodium Chloride (Sodium Chloride Flush Syringe 10 Ml) 10 ml IV PRN PRN PRN Reason: LINE FLUSH Review of Systems Constitutional: no fever, no chills Ears, nose, mouth and throat: no nasal congestion, no sore throat Cardiovascular: no chest pain, no palpitations Respiratory: no cough, no shortness of breath Gastrointestinal: abdominal pain, no nausea, no vomiting, no diarrhea Genitourinary Female: no flank pain, no dysuria, no hematuria Musculoskeletal: no neck pain, no low back pain Integumentary: rash, pruritis Neurological: no headaches, no confusion Psychiatric: no anxiety, no depression Exam - Constitutional Vitals: Temp Pulse Resp BP Pulse Ox 97.8 F 114 H 18 121/86 100 03/07/20 21:22 03/07/20 21:22 03/07/20 21:22 03/07/20 21:22 03/07/20 21:22 General appearance: Present: no acute distress, well-nourished - EENT Eyes: Present: PERRL, EOM intact. Absent: scleral icterus ENT: hearing intact, clear oral mucosa, dentition normal - Neck Neck: Present: supple, normal ROM - Respiratory Respiratory effort: normal Respiratory: bilateral: CTA - Cardiovascular Rhythm: regular Heart Sounds: Present: S1 & S2. Absent: gallop, systolic murmur, diastolic murmur, rub - Extremities Extremities: no ischemia, pulses intact, pulses symmetrical, Full ROM Extremity abnormal: edema (1+ bilateral ankle edema) Peripheral Pulses: within normal limits - Abdominal General gastrointestinal: Present: soft, tender (Mildly), distended, normal bowel sounds - Integumentary Integumentary: Present: clear, warm, dry, rash (Generalized psoriatric rash all over skin, multiple open sores on legs) - Musculoskeletal Musculoskeletal: strength equal bilaterally - Psychiatric Psychiatric: appropriate mood/affect, intact judgment & insight, memory intact, cooperative - Neurologic Neurologic: CNII-XII intact, no focal deficits, moves all extremities Results - Labs CBC & Chem 7: 03/07/20 14:59 03/07/20 14:59 Labs: Abnormal lab results 03/07/20 03/07/20 03/07/20 Range/Units 14:59 14:59 Unknown RBC 3.54 L (3.65-5.03) M/mm3 RDW 21.2 H (13.2-15.2) % [place] % (Auto) 10.6 H (0.0-7.3) % Potassium 3.4 L (3.6-5.0) mmol/L BUN 3 L (7-17) mg/dL Creatinine 0.3 L (0.6-1.2) mg/dL Calcium 7.9 L (8.4-10.2) mg/dL Total Bilirubin 1.30 H (0.1-1.2) mg/dL AST 44 H (5-40) units/L Alkaline Phosphatase 256 H (35-129) units/L Albumin 2.3 L (3.9-5) g/dL Urine WBC (Auto) > 182.0 H (0.0-6.0) /HPF Assessment and Plan - Patient Problems (1) Ascites Current Visit: Yes Status: Acute Qualifiers: Ascites type: other type Qualified Code(s): R18.8 - Other ascites Plan to address problem: Patient has known history of liver cirrhosis. Will place a consult to leave interventional radiology for paracentesis. (2) Cirrhosis of liver Current Visit: Yes Status: Acute Qualifiers: Hepatic cirrhosis type: other cirrhosis Qualified Code(s): K74.69 - Other cirrhosis of liver (3) Intractable abdominal pain Onset Date: 04/29/14 Current Visit: Yes Status: Acute Plan to address problem: Secondary to the ascites. Patient has been placed on IV analgesic medication. (4) UTI (urinary tract infection) Current Visit: Yes Status: Acute Qualifiers: Urinary tract infection type: acute cystitis Hematuria presence: with hematuria Qualified Code(s): N30.01 - Acute cystitis with hematuria Plan to address problem: Patient has been placed on empiric IV antibiotics. We will await urine culture result. (5) DVT prophylaxis Current Visit: No Status: Acute Plan to address problem: Patient on sequential compression device. (6) Full code status Current Visit: No Status: Acute
[2020-03-08] MEDS ORDERED: HYDROmorphone 1 MG/1 ML INJ ONE ×2 (02:56→05:20)
[2020-03-08] MEDS: HYDROmorphone 1 MG/1 ML INJ IV PRN ×7 (02:57→21:45)
[2020-03-08] MEDS: cefTRIAXone/NS 1 GM/50 ML 1 GM/50 ML BAG IV SCH (09:07)
[2020-03-08 10:04] LABS: INR 1.51 (0.87-1.13); Partial Thromboplastin Time 39.8 Sec. (24.2-36.6)
--- NOTE | 2020-03-08 14:40 | Procedure Note ---
Date of procedure: 03/08/20 Pre-op diagnosis: ascites Post-op diagnosis: same Procedure: US paracentesis Findings: ascites Anesthesia: local Surgeon: KAREEM MARX Estimated blood loss: none Pathology: none Specimen disposition: discarded Condition: stable Disposition: floor
--- NOTE | 2020-03-08 14:45 | Ultrasound Report ---
ULTRASOUND-GUIDED PARACENTESIS HISTORY: ascites, cirrhosis. PROCEDURE: The risks (including but not limited to bleeding, infection, and bowel injury) and benefi ts were explained to the patient and informed consent was obtained. A time out procedure was perform ed. Ultrasound was used to evaluate the abdomen and locate the largest ascites fluid pocket. Once the sk in was marked, the procedure site was prepped and draped in the usual sterile fashion and lidocaine w as used for local anesthesia. A skin daja was made and a 5 [place] centesis catheter was placed. The patient was monitored closely throughout the procedure, and a total of 1900 mL of clear yellow fluid was aspirated. No labs were ordered. The patient tolerated the procedure well with no complications. IMPRESSION: Successful ultrasound-guided paracentesis as described. Signer Name: Matteo Moran Jr, MD Signed: 03/08/2020 2:40 PM Workstation Name: [id number]
--- NOTE | 2020-03-08 16:12 | Event Note ---
Date: 03/08/20 Patient was admitted admitted early this morning with large ascites Underwent abdominal paracentesis and removal of 1.9 L of peritoneal fluid Patient feels slightly better, vital signs reviewed Patient's chart, current management and medications reviewed Agree with the treatment plan Monitor the patient closely and adjust management as needed Plan of care reviewed with the patient
[2020-03-08] MEDS: TRIAMCINOLONE 0.5% CREAM 15 GM TP SCH (21:42)
[2020-03-09] MEDS: HYDROmorphone 1 MG/1 ML INJ IV PRN ×5 (03:57→20:51)
[2020-03-09 06:24] LABS: Basophils # (Auto) 0.1 K/mm3 (0.0-0.1); Eosinophils # (Auto) 0.2 K/mm3 (0.0-0.4); Eosinophils % (Auto) 3.1 % (0.0-4.3); Hematocrit 26.9 % (30.3-42.9); Hemoglobin 8.8 gm/dl (10.1-14.3); Lymphocytes # (Auto) 0.8 K/mm3 (1.2-5.4); Mean Corpuscular HGB Conc 33 % (30-34); Mean Corpuscular Volume 91 fl (79-97); Monocytes # (Auto) 0.8 K/mm3 (0.0-0.8); Monocytes % (Auto) 15.4 % (0.0-7.3); Platelet Count 185 K/mm3 (140-440); Red Blood Count 2.97 M/mm3 (3.65-5.03)
[2020-03-09 06:25] LABS: Red Cell Distribution Width 20.5 % (13.2-15.2)
[2020-03-09 06:45] LABS: INR 1.57 (0.87-1.13)
[2020-03-09 06:46] LABS: Blood Urea Nitrogen 5 mg/dL (7-17); Calcium 7.5 mg/dL (8.4-10.2); Hemolysis Index 1
[2020-03-09 06:50] LABS: BUN/Creatinine Ratio 17
[2020-03-09] MEDS: TRIAMCINOLONE 0.5% CREAM 15 GM TP SCH ×2 (09:19→23:03)
[2020-03-09] MEDS: cefTRIAXone/NS 1 GM/50 ML 1 GM/50 ML BAG IV SCH (09:19)
--- NOTE | 2020-03-09 11:11 | Progress Note ---
Assessment and Plan Assessment and plan: ----Hypokalemia; replace with 20 mEq IV KCl 40 mEq p.o. KCl Monitor electrolytes, -- Ascites Current Visit: Yes Status: Acute Plan to address problem: Status post paracentesis of 1.9 L patient has known history of liver cirrhosis. Continue diuretics, input output, fluid restriction --Cirrhosis of liver Current Visit: Yes Status: Acute Continue current management --Intractable nausea vomiting Onset Date: 04/29/14 Current Visit: Yes Status: Acute Plan to address problem: antiemetics, supportive care -- UTI (urinary tract infection) Current Visit: Yes Status: Acute Plan to address problem: Patient has been placed on empiric IV antibiotics. Follow cultures -- DVT prophylaxis Current Visit: No Status: Acute Plan to address problem: Patient on sequential compression device. -- Full code status Current Visit: No Status: Acute Closely monitor the patient and adjust management as needed Possible discharge in 1 to 2 days if stable Plan of care reviewed with the patient and her nurse Brief history; 49-year-old female patient with cirrhosis liver ascites was admitted through emergency room with worsening abdominal distention, nausea vomiting Admitted appropriately managed, underwent paracentesis and removal of 1.6 L of p eritoneal fluid[not sent for analysis for unknown reason] Patient feels slightly better electrolyte abnormalities, and chronic back pain, DC in 1 to 2 days if stable History Interval history: I have seen and examined the patient at the bedside Patient's chart and medications reviewed Patient complains of some back pain Vital signs noted Hospitalist Physical - Constitutional Vitals: Temp Pulse Resp BP Pulse Ox 97.9 F 111 H 20 101/77 97 03/09/20 04:37 03/09/20 04:37 03/09/20 04:37 03/09/20 04:37 03/09/20 04:37 General appearance: Present: no acute distress, well-nourished - EENT Eyes: Present: PERRL, EOM intact - Neck Neck: Present: supple, normal ROM - Respiratory Respiratory effort: normal Respiratory: bilateral: diminished, negative: rales, rhonchi, wheezing - Cardiovascular Rhythm: regular Heart Sounds: Present: S1 & S2 - Extremities Extremities: no ischemia Extremity abnormal: edema - Abdominal General gastrointestinal: soft, non-tender, distended (Mild), normal bowel sounds, other (Ascites) - Integumentary Integumentary: Present: clear, warm - Psychiatric Psychiatric: appropriate mood/affect, cooperative - Neurologic Neurologic: moves all extremities Results - Labs CBC & Chem 7: 03/09/20 04:42 03/09/20 04:42 Labs: Laboratory Last Values WBC 5.5 K/mm3 (4.5-11.0) 03/09/20 04:42 RBC 2.97 M/mm3 (3.65-5.03) L 03/09/20 04:42 Hgb 8.8 gm/dl (10.1-14.3) L 03/09/20 04:42 Hct 26.9 % (30.3-42.9) L 03/09/20 04:42 MCV 91 fl (79-97) 03/09/20 04:42 MCH 30 pg (28-32) 03/09/20 04:42 MCHC 33 % (30-34) 03/09/20 04:42 RDW 20.5 % (13.2-15.2) H 03/09/20 04:42 Plt Count 185 K/mm3 (140-440) 03/09/20 04:42 Lymph % (Auto) 14.0 % (13.4-35.0) 03/09/20 04:42 [place] % (Auto) 15.4 % (0.0-7.3) H 03/09/20 04:42 Eos % (Auto) 3.1 % (0.0-4.3) 03/09/20 04:42 Baso % (Auto) 1.0 % (0.0-1.8) 03/09/20 04:42 Lymph # 0.8 K/mm3 (1.2-5.4) L 03/09/20 04:42 [place] # 0.8 K/mm3 (0.0-0.8) 03/09/20 04:42 Eos # 0.2 K/mm3 (0.0-0.4) 03/09/20 04:42 Baso # 0.1 K/mm3 (0.0-0.1) 03/09/20 04:42 Seg Neutrophils % 66.5 % (40.0-70.0) 03/09/20 04:42 Seg Neutrophils # 3.7 K/mm3 (1.8-7.7) 03/09/20 04:42 PT 19.1 Sec. (12.2-14.9) H 03/09/20 04:42 INR 1.57 (0.87-1.13) H 03/09/20 04:42 APTT 39.8 Sec. (24.2-36.6) H 03/08/20 09:22 Sodium 134 mmol/L (137-145) L 03/09/20 04:42 Potassium 3.0 mmol/L (3.6-5.0) L 03/09/20 04:42 Chloride 98.8 mmol/L (98-107) 03/09/20 04:42 Carbon Dioxide 23 mmol/L (22-30) 03/09/20 04:42 Anion Gap 15 mmol/L 03/09/20 04:42 BUN 5 mg/dL (7-17) L 03/09/20 04:42 Creatinine 0.3 mg/dL (0.6-1.2) L 03/09/20 04:42 Estimated GFR > 60 ml/min 03/09/20 04:42 BUN/Creatinine Ratio 17 % 03/09/20 04:42 Glucose 72 mg/dL (65-100) 03/09/20 04:42 Calcium 7.5 mg/dL (8.4-10.2) L 03/09/20 04:42 Total Bilirubin 1.30 mg/dL (0.1-1.2) H 03/07/20 14:59 AST 44 units/L (5-40) H 03/07/20 14:59 ALT 12 units/L (7-56) 03/07/20 14:59 Alkaline Phosphatase 256 units/L (35-129) H 03/07/20 14:59 Total Protein 7.1 g/dL (6.3-8.2) 03/07/20 14:59 Albumin 2.3 g/dL (3.9-5) L 03/07/20 14:59 Albumin/Globulin Ratio 0.5 % 03/07/20 14:59 Urine Color Yellow (Yellow) 03/07/20 Unknown Urine Turbidity Turbid (Clear) 03/07/20 Unknown Urine pH 5.0 (5.0-7.0) 03/07/20 Unknown Ur Specific [place] 1.021 (1.003-1.030) 03/07/20 Unknown Urine Protein 100 mg/dl mg/dL (Negative) 03/07/20 Unknown Urine Glucose (UA) Neg mg/dL (Negative) 03/07/20 Unknown Urine Ketones Tr mg/dL (Negative) 03/07/20 Unknown Urine Blood Sm (Negative) 03/07/20 Unknown Urine Nitrite Neg (Negative) 03/07/20 Unknown Urine Bilirubin Neg (Negative) 03/07/20 Unknown Urine Urobilinogen 4.0 mg/dL (<2.0) 03/07/20 Unknown Ur Leukocyte Esterase Mod (Negative) 03/07/20 Unknown Urine WBC (Auto) > 182.0 /HPF (0.0-6.0) H 03/07/20 Unknown Urine RBC (Auto) 130.0 /HPF (0.0-6.0) 03/07/20 Unknown Urine WBC Clumps 3+ /HPF 03/07/20 Unknown Urine Mucus 3+ /HPF 03/07/20 Unknown Lee/IV: Voiding Method Bedside Commode IV Catheter Type [Left INT / Saline Lock Antecubital] Active Medications - Current Medications Current Medications: Generic Name Dose Route Start Last Admin Trade Name Freq PRN Reason Stop Dose Admin Acetaminophen 650 mg 03/08/20 02:27 Tylenol PO Q4H PRN Pain MILD(1-3)/Fever >100.5/FAULKNER Hydromorphone HCl 1 mg 03/08/20 02:27 03/09/20 09:20 Dilaudid IV 1 mg Q3H PRN Administration Pain, Moderate (4-6) Ceftriaxone Sodium 1 gm in 50 mls @ 100 mls/hr 03/08/20 10:00 03/09/20 09:19 Rocephin/Ns 1 Gm/50 Ml IV 100 mls/hr Q24HR FOREIGN Administration Protocol Ondansetron HCl 4 mg 03/08/20 02:27 Zofran IV Q8H PRN Nausea And Vomiting Sodium Chloride 10 ml 03/08/20 10:00 03/09/20 09:20 Sodium Chloride Flush Syringe 10 Ml IV 10 ml BID FOREIGN Administration Sodium Chloride 10 ml 03/08/20 02:27 Sodium Chloride Flush Syringe 10 Ml IV PRN PRN LINE FLUSH Triamcinolone Acetonide 1 applic 03/08/20 22:00 03/09/20 09:19 Kenalog TP 1 applic BID FOREIGN Administration
[2020-03-09] MEDS ORDERED: POTASSIUM CHLORIDE ER 20 MEQ TAB PO ONE (19:22)
[2020-03-09] MEDS: POTASSIUM CHLORIDE 10 MEQ 10 MEQ/100 ML BAG IV SCH ×2 (20:50→22:06)
[2020-03-09] MEDS: ACETAMINOPHEN 325 MG TAB PO PRN (20:58)
[2020-03-09] MEDS: diphenhydrAMINE 25 MG CAP PO PRN (23:26)
[2020-03-10] MEDS: HYDROmorphone 1 MG/1 ML INJ IV PRN ×6 (00:10→21:27)
[2020-03-10] MEDS: ACETAMINOPHEN 325 MG TAB PO PRN (05:13)
[2020-03-10 10:30] LABS: Alanine Aminotransferase 11 units/L (7-56); Blood Urea Nitrogen 5 mg/dL (7-17); Calcium 7.7 mg/dL (8.4-10.2); Hemolysis Index 2
[2020-03-10 10:31] LABS: BUN/Creatinine Ratio 17
[2020-03-10] MEDS: cefTRIAXone/NS 1 GM/50 ML 1 GM/50 ML BAG IV SCH (10:50)
[2020-03-10] MEDS: diphenhydrAMINE 25 MG CAP PO PRN ×2 (10:51→18:10)
[2020-03-10] MEDS: TRIAMCINOLONE 0.5% CREAM 15 GM TP SCH ×2 (10:52→21:26)
--- NOTE | 2020-03-10 16:10 | Progress Note ---
Assessment and Plan Assessment and Plan ----Hypokalemia; replace with 20 mEq IV KCl 40 mEq p.o. KCl Monitor electrolytes, -- Ascites Current Visit: Yes Status: Acute Plan to address problem: Status post paracentesis of 1.9 L patient has known history of liver cirrhosis. Continue diuretics, input output, fluid restriction --Cirrhosis of liver Current Visit: Yes Status: Acute Continue current management --Intractable nausea vomiting Onset Date: 04/29/14 Current Visit: Yes Status: Acute Plan to address problem: antiemetics, supportive care -- UTI (urinary tract infection) Current Visit: Yes Status: Acute Plan to address problem: Patient has been placed on empiric IV antibiotics. Follow cultures -- DVT prophylaxis Current Visit: No Status: Acute Plan to address problem: Patient on sequential compression device. -- Full code status Current Visit: No Status: Acute Closely monitor the patient and adjust management as needed Possible discharge in 1 to 2 days if stable Plan of care reviewed with the patient and her nurse Subjective Date of service: 03/10/20 Principal diagnosis: Ascites, hypokalemia Interval history: Brief history; 49-year-old female patient with cirrhosis liver ascites was admitted through emergency room with worsening abdominal distention, nausea vomiting Admitted appropriately managed, underwent paracentesis and removal of 1.6 L of peritoneal fluid[not sent for analysis for unknown reason] Patient feels slightly better electrolyte abnormalities, and chronic back pain, DC in 1 to 2 days if stable I have seen and examined the patient at the bedside Patient's chart and medications reviewed Patient complains of some back pain Vital signs noted Objective - Constitutional Vitals: Vital Signs - 12hr 03/10/20 03/10/20 04:33 10:51 Temperature 97.8 F Pulse Rate 72 Respiratory 17 20 Rate Blood Pressure 112/59 O2 Sat by Pulse 98 Oximetry General appearance: Present: no acute distress, well-nourished - EENT Eyes: PERRL, EOM intact ENT: hearing intact, clear oral mucosa Ears: bilateral: normal - Neck Neck: supple, normal ROM - Respiratory Respiratory effort: normal Respiratory: bilateral: CTA - Breasts Breasts: normal - Cardiovascular Rhythm: regular Heart Sounds: Present: S1 & S2. Absent: gallop, rub Extremities: pulses intact, No edema, normal color, Full ROM - Gastrointestinal General gastrointestinal: Present: soft, non-tender, distended (Ascites), normal bowel sounds - Genitourinary Female genitourinary: normal - Integumentary Integumentary: clear, warm, dry - Musculoskeletal Musculoskeletal: 1, strength equal bilaterally - Neurologic Neurologic: moves all extremities - Psychiatric Psychiatric: memory intact, appropriate mood/affect, intact judgment & insight - Labs CBC & Chem 7: 03/09/20 04:42 03/10/20 09:14 Labs: Abnormal lab results 03/10/20 Range/Units 09:14 BUN 5 L (7-17) mg/dL Creatinine 0.3 L (0.6-1.2) mg/dL Calcium 7.7 L (8.4-10.2) mg/dL Alkaline Phosphatase 197 H (35-129) units/L Total Protein 6.0 L (6.3-8.2) g/dL Albumin 2.0 L (3.9-5) g/dL
[2020-03-11] MEDS: HYDROmorphone 1 MG/1 ML INJ IV PRN ×6 (00:31→20:46)
[2020-03-11] MEDS: diphenhydrAMINE 25 MG CAP PO PRN ×3 (00:32→20:47)
[2020-03-11] MEDS ORDERED: HYDROmorphone 2 MG/1 ML INJ IV ONE (07:00)
[2020-03-11] MEDS: TRIAMCINOLONE 0.5% CREAM 15 GM TP SCH (09:08)
[2020-03-11] MEDS: cefTRIAXone/NS 1 GM/50 ML 1 GM/50 ML BAG IV SCH (09:08)
--- NOTE | 2020-03-11 17:50 | Progress Note ---
Assessment and Plan Assessment and Plan ----Hypokalemia; replace with 20 mEq IV KCl 40 mEq p.o. KCl Monitor electrolytes, -- Ascites Current Visit: Yes Status: Acute Plan to address problem: Status post paracentesis of 1.9 L patient has known history of liver cirrhosis. Continue diuretics, input output, fluid restriction For paracentesis in a.m. --Cirrhosis of liver Current Visit: Yes Status: Acute Continue current management --Intractable nausea vomiting Onset Date: 04/29/14 Current Visit: Yes Status: Acute Plan to address problem: antiemetics, supportive care -- UTI (urinary tract infection) Current Visit: Yes Status: Acute Plan to address problem: Patient has been placed on empiric IV antibiotics. Follow cultures -- DVT prophylaxis Current Visit: No Status: Acute Plan to address problem: Patient on sequential compression device. -- Full code status Current Visit: No Status: Acute Closely monitor the patient and adjust management as needed Possible discharge in 1 to 2 days if stable Plan of care reviewed with the patient and her nurse Subjective Date of service: 03/11/20 Principal diagnosis: Ascites, hypokalemia Interval history: Brief history; 49-year-old female patient with cirrhosis liver ascites was admitted through emergency room with worsening abdominal distention, nausea vomiting Admitted appropriately managed, underwent paracentesis and removal of 1.6 L of peritoneal fluid[not sent for analysis for unknown reason] Patient feels slightly better electrolyte abnormalities, and chronic back pain, DC in 1 to 2 days if stable I have seen and examined the patient at the bedside Patient's chart and medications reviewed Patient complains of some back pain Vital signs noted For paracentesis in a.m. Objective - Constitutional Vitals: Vital Signs - 12hr 03/11/20 03/11/20 06:44 11:31 Temperature 99.0 F 98.4 F Pulse Rate 96 H 92 H Respiratory 16 19 Rate Blood Pressure 123/68 95/62 O2 Sat by Pulse 98 96 Oximetry General appearance: Present: no acute distress, well-nourished - EENT Eyes: PERRL, EOM intact ENT: hearing intact, clear oral mucosa Ears: bilateral: normal - Neck Neck: supple, normal ROM - Respiratory Respiratory effort: normal Respiratory: bilateral: CTA - Breasts Breasts: normal - Cardiovascular Heart rate: 78 Rhythm: regular Heart Sounds: Present: S1 & S2. Absent: gallop, rub Extremities: pulses intact, No edema, normal color, Full ROM - Gastrointestinal General gastrointestinal: Present: soft, non-tender, distended, normal bowel sounds - Genitourinary Female genitourinary: normal - Integumentary Integumentary: clear, warm, dry - Musculoskeletal Musculoskeletal: 1, strength equal bilaterally - Neurologic Neurologic: moves all extremities - Psychiatric Psychiatric: memory intact, appropriate mood/affect, intact judgment & insight - Labs CBC & Chem 7: 03/09/20 04:42 03/10/20 09:14
[2020-03-11] MEDS: oxyCODONE /ACETAMINOPHEN 5-325MG TAB PO PRN (21:55)
[2020-03-12] MEDS: TRIAMCINOLONE 0.5% CREAM 15 GM TP SCH ×2 (00:15→14:43)
[2020-03-12] MEDS: diphenhydrAMINE 25 MG CAP PO PRN (00:30)
[2020-03-12] MEDS: HYDROmorphone 1 MG/1 ML INJ IV PRN ×6 (00:30→18:53)
[2020-03-12] MEDS: oxyCODONE /ACETAMINOPHEN 5-325MG TAB PO PRN ×2 (03:30→19:54)
[2020-03-12 09:31] LABS: Basophils % (Auto) 0.6 % (0.0-1.8); Eosinophils # (Auto) 0.1 K/mm3 (0.0-0.4); Eosinophils % (Auto) 2.2 % (0.0-4.3); Hematocrit 27.8 % (30.3-42.9); Hemoglobin 8.8 gm/dl (10.1-14.3); Lymphocytes # (Auto) 0.9 K/mm3 (1.2-5.4); Lymphocytes % (Auto) 16.9 % (13.4-35.0); Mean Corpuscular HGB Conc 32 % (30-34); Mean Corpuscular Volume 94 fl (79-97); Monocytes # (Auto) 0.7 K/mm3 (0.0-0.8); Monocytes % (Auto) 12.6 % (0.0-7.3); Platelet Count 173 K/mm3 (140-440); Red Blood Count 2.97 M/mm3 (3.65-5.03)
[2020-03-12 09:32] LABS: Red Cell Distribution Width 21.5 % (13.2-15.2)
[2020-03-12] MEDS: cefTRIAXone/NS 1 GM/50 ML 1 GM/50 ML BAG IV SCH (09:42)
[2020-03-12 09:57] LABS: Alanine Aminotransferase 12 units/L (7-56); Albumin 1.9 g/dL (3.9-5); Blood Urea Nitrogen 7 mg/dL (7-17); Calcium 8.2 mg/dL (8.4-10.2); Hemolysis Index 8
[2020-03-12 09:59] LABS: BUN/Creatinine Ratio 23
--- NOTE | 2020-03-12 12:00 | Progress Note ---
Assessment and Plan Assessment and Plan ----Hypokalemia; replace with 20 mEq IV KCl added coverage for return of blood and black box rules 40 mEq p.o. KCl Monitor electrolytes, Hyponatremia sodium level 134 on 03/09/2020= now corrected to 138 today -- Ascites Current Visit: Yes Status: Acute Plan to address problem: Status post paracentesis of 1.9 L patient has known history of liver cirrhosis. Continue diuretics, input output, fluid restriction For paracentesis in a.m. Malnutrition severe malnutrition --albumin being 1.9 and one 2.0. Probably secondary to cirrhosis, dietitian consult --Cirrhosis of liver Current Visit: Yes Status: Acute Continue current management --Intractable nausea vomiting Onset Date: 04/29/14 Current Visit: Yes Status: Acute Plan to address problem: antiemetics, supportive care -- UTI (urinary tract infection) Current Visit: Yes Status: Acute Plan to address problem: Patient has been placed on empiric IV antibiotics. Follow cultures -- DVT prophylaxis Current Visit: No Status: Acute Plan to address problem: Patient on sequential compression device. -- Full code status Current Visit: No Status: Acute Closely monitor the patient and adjust management as needed Possible discharge in 1 to 2 days if stable Plan of care reviewed with the patient and her nurse Discharge planning--if paracentesis is done today and patient is stable--patient will be discharged today, Number if not tomorrow Subjective Date of service: 03/12/20 Principal diagnosis: Ascites, hypokalemia Interval history: Brief history; 49-year-old female patient with cirrhosis liver ascites was admitted through emergency room with worsening abdominal distention, nausea vomiting Admitted appropriately managed, underwent paracentesis and removal of 1.6 L of peritoneal fluid[not sent for analysis for unknown reason] Patient feels slightly better electrolyte abnormalities, and chronic back pain, DC in 1 to 2 days if stable I have seen and examined the patient at the bedside Patient's chart and medications reviewed Patient complains of some back pain Vital signs noted For paracentesis today. Objective - Constitutional Vitals: Vital Signs - 12hr 03/12/20 04:19 Temperature 98.2 F Pulse Rate 89 Respiratory 18 Rate Blood Pressure 118/63 O2 Sat by Pulse 96 Oximetry General appearance: Present: no acute distress, well-nourished - EENT Eyes: PERRL, EOM intact ENT: hearing intact, clear oral mucosa Ears: bilateral: normal - Neck Neck: supple, normal ROM - Respiratory Respiratory effort: normal Respiratory: bilateral: CTA - Breasts Breasts: normal - Cardiovascular Rhythm: regular Heart Sounds: Present: S1 & S2. Absent: gallop, rub Extremities: pulses intact, No edema, normal color, Full ROM - Gastrointestinal General gastrointestinal: Present: soft, non-tender, non-distended, normal bowel sounds - Genitourinary Female genitourinary: normal - Integumentary Integumentary: clear, warm, dry - Musculoskeletal Musculoskeletal: 1, strength equal bilaterally - Neurologic Neurologic: moves all extremities - Psychiatric Psychiatric: memory intact, appropriate mood/affect, intact judgment & insight - Labs CBC & Chem 7: 03/12/20 09:20 03/12/20 09:20 Labs: Abnormal lab results 03/12/20 03/12/20 Range/Units 09:20 09:20 RBC 2.97 L (3.65-5.03) M/mm3 Hgb 8.8 L (10.1-14.3) gm/dl Hct 27.8 L (30.3-42.9) % RDW 21.5 H (13.2-15.2) % [place] % (Auto) 12.6 H (0.0-7.3) % Lymph # 0.9 L (1.2-5.4) K/mm3 Creatinine 0.3 L (0.6-1.2) mg/dL Glucose 103 H (65-100) mg/dL Calcium 8.2 L (8.4-10.2) mg/dL Magnesium 1.50 L (1.7-2.3) mg/dL AST 41 H (5-40) units/L Alkaline Phosphatase 177 H (35-129) units/L Albumin 1.9 L (3.9-5) g/dL
--- NOTE | 2020-03-12 12:26 | Ultrasound Report ---
ULTRASOUND ABDOMEN LIMITED HISTORY: Ascites TECHNIQUE: Transabdominal ultrasound. FINDINGS: This examination was scheduled as an ultrasound guided paracentesis. All 4 quadrants of the abdomen were scanned. Trace ascites is identified but no pocket large enough for ultrasound-guided t horacentesis. IMPRESSION: No significant ascites. No fluid pocket large enough for safe paracentesis. Signer Name: Matteo Moran Jr, MD Signed: 03/12/2020 12:22 PM Workstation Name: [id number]
[2020-03-12 18:52] VITALS: BP 134/74
--- NOTE | 2020-03-12 19:41 | Discharge Summary ---
Providers - Providers Date of Admission: 03/09/20 09:47 Date of discharge: 03/12/20 Attending physician: ASAEL LICONA 03/08/20 02:31 Consult to Interventional Radiology [CONS] Routine Consulting Provider: SELENE HEART Reason For Exam: Ascites. Please evaluate for paracentesis Place consult to:: DR. HEART Notified:: DR. HEART 03/08/20 02:52 Consult to Wound/ET Nurse [CONS] Routine Reason For Exam: wound eval on legs Primary care physician: REPORT CHECKER Hospitalization Condition: Critical Hospital course: Brief history; 49-year-old female patient with cirrhosis liver ascites was admitted through emergency room with worsening abdominal distention, nausea vomiting Admitted appropriately managed, underwent paracentesis and removal of 1.6 L of peritoneal fluid[not sent for analysis for unknown reason] Patient feels slightly better electrolyte abnormalities, and chronic back pain, DC in 1 to 2 days if stable I have seen and examined the patient at the bedside Patient's chart and medications reviewed Patient complains of some back pain Vital signs noted Had paracentesis today. Assessment and Plan ----Hypokalemia; Potassiums supplemented Hyponatremia sodium level 134 on 03/09/2020= now corrected to 138 today -- Ascites Current Visit: Yes Status: Acute Plan to address problem: Status post paracentesis of 1.9 L patient has known history of liver cirrhosis. Continue diuretics, input output, fluid restriction Had paracentesis today Malnutrition severe malnutrition --albumin being 1.9 and one 2.0. Probably secondary to cirrhosis, dietitian consult --Cirrhosis of liver Current Visit: Yes Status: Acute Continue current management --Intractable nausea vomiting Onset Date: 04/29/14 Current Visit: Yes Status: Acute Plan to address problem: antiemetics, supportive care -- UTI (urinary tract infection) Current Visit: Yes Status: Acute Plan to address problem: To be discharged on oral antibioticso Discharge planning--if paracentesis is done today and patient is stable--patient will be discharged today, Number if not tomorrow psoriasis triamcinolone cream prescribed at the time of discharge Disposition: DC-01 TO HOME OR SELFCARE Time spent for discharge: 30 minutes - Discharge Diagnoses (1) Ascites Status: Acute Qualifiers: Ascites type: other type Qualified Code(s): R18.8 - Other ascites (2) Cirrhosis of liver Status: Acute Qualifiers: Hepatic cirrhosis type: other cirrhosis Qualified Code(s): K74.69 - Other cirrhosis of liver (3) Intractable abdominal pain Status: Acute (4) UTI (urinary tract infection) Status: Acute Qualifiers: Urinary tract infection type: acute cystitis Hematuria presence: with hematuria Qualified Code(s): N30.01 - Acute cystitis with hematuria (5) Hypokalemia Status: Acute (6) Hyponatremia Status: Acute (7) Psoriasis Status: Chronic Comment: Discharged on triamcinolone cream 0.1% (8) DVT prophylaxis Status: Acute Core Measure Documentation - Palliative Care Palliative Care/ Comfort Measures: Not Applicable - Core Measures Any of the following diagnoses?: none Exam - Constitutional Vitals: Temp Pulse Resp BP Pulse Ox 98.2 F 97 H 20 134/74 97 03/12/20 15:58 03/12/20 15:58 03/12/20 15:58 03/12/20 15:58 03/12/20 15:58 General appearance: Present: no acute distress, well-nourished - EENT Eyes: Present: PERRL ENT: hearing intact, clear oral mucosa - Neck Neck: Present: supple, normal ROM - Respiratory Respiratory effort: normal Respiratory: bilateral: CTA - Cardiovascular Heart rate: 78 Rhythm: regular Heart Sounds: Present: S1 & S2. Absent: rub, click - Extremities Extremities: no ischemia, pulses intact, pulses symmetrical, No edema Peripheral Pulses: within normal limits - Abdominal General gastrointestinal: Present: soft, non-tender, distended, normal bowel sounds Female genitourinary: Present: normal - Integumentary Integumentary: Present: clear, warm, dry - Musculoskeletal Musculoskeletal: gait normal, strength equal bilaterally - Psychiatric Psychiatric: appropriate mood/affect, intact judgment & insight - Neurologic Neurologic: CNII-XII intact, moves all extremities - Allied Health Allied health notes reviewed: nursing, case management Plan Activity: no restrictions Diet: low fat, low cholesterol, low salt Follow up with: FREYA CHAUHAN MD [Primary Care Provider] - 7 Days JAYJAY GARCIA MD [Staff Physician] - 7 Days
== END 2020-03-12 20:07 | disposition home or self-care (01) | DRG 432 ==
LOC: ED 10:59 → 3A 03-08 00:34 → OBSVTOIN 03-09 09:47
PROVIDERS: ADMIT Internal Medicine Geriatric Medicine; ATTEND Internal Medicine
PROC: 0W9G3ZZ Drainage of Peritoneal Cavity, Percutaneous Approach (ICD-10-PCS; principal; 2020-03-08)
DX: K74.69 Other cirrhosis of liver (principal); E43 Unspecified severe protein-calorie malnutrition; R18.8 Other ascites; F32.9 Major depressive disorder, single episode, unspecified; I10 Essential (primary) hypertension; M19.90 Unspecified osteoarthritis, unspecified site; N30.01 Acute cystitis with hematuria; E87.6 Hypokalemia; L40.9 Psoriasis, unspecified; F41.9 Anxiety disorder, unspecified; K76.6 Portal hypertension; E87.1 Hypo-osmolality and hyponatremia; Z90.49 Acquired absence of other specified parts of digestive tract
CPT/HCPCS: 36415; 49083; 74176; 76705; 80048; 80053; 81001; 82140; 82150; 82962; 83735; 85025; 85610; 85730; 87086; G0378; J0692; J0696; J1170; J3480; J7040

== ENCOUNTER 2020-03-29 13:33 | Emergency (ER) | payer MEDICAID | END 2020-03-29 13:34 | disposition left against medical advice (07) | LOC: ED 13:33 | DX: R10.9 Unspecified abdominal pain (principal); Z53.21 Procedure and treatment not carried out due to patient leaving prior to being seen by health care provider ==

== ENCOUNTER 2020-04-27 01:24 | Emergency (ER) | payer MEDICAID ==
[2020-04-27 02:49] VITALS: BP 125/84
--- NOTE | 2020-04-27 03:47 | XRay Report ---
RIGHT HIP 2 VIEWS INDICATION / CLINICAL INFORMATION: MAIN. COMPARISON: None available. FINDINGS: Very mild degenerative change. No fracture or other acute abnormality. Signer Name: Juliano Mosquera MD Signed: 04/27/2020 3:43 AM Workstation Name: [id number]
[2020-04-27] MEDS ORDERED: dexAMETHasone 20 MG/5 ML VIAL IM ONE (05:30)
[2020-04-27] MEDS ORDERED: ACETAMINOPHEN 500 MG TAB PO ONE (05:30)
[2020-04-27] MEDS ORDERED: KETOROLAC 30 MG/1 ML INJ IM ONE (05:30)
--- NOTE | 2020-04-27 05:54 | Emergency Department Report ---
ED Fall HPI - General Chief Complaint: Extremity Injury, Lower Stated Complaint: HIP PAIN Source: patient Mode of arrival: Stretcher - History of Present Illness Initial Comments: Patient is a 49-year-old white female with a history of hypertension, chronic osteoarthritis, anxiety and depression, chronic psoriasis and liver cirrhosis who presents to the ED with worsening right hip pain after she slipped and fell down the stairs 3 days ago. Patient states that she has been taking [id number] pain medications with no relief. Patient denies head or neck injuries, dizziness, syncope, seizures, back pain, chest pain, shortness of breath, abdominal pain, numbness and tingling or weakness of upper and lower extremities bilaterally or loss of consciousness. 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 denies: headache, neck pain, numbness, weakness, chest paint, shortness of breath, abdominal pain, hematuria, unable to walk, lightheaded, vertigo, confusion, other - Related Data Previous Rx's Medication Instructions Recorded Last Taken Type Furosemide [Lasix TAB] 40 mg PO QDAY #30 tablet 03/12/20 Unknown Rx Oxycodone HCl/Acetaminophen 1 each PO Q8H PRN #20 tablet 03/12/20 Unknown Rx [Percocet 7.5/325 mg] Potassium Chloride [K-Dur] 20 meq PO QDAY 30 Days #30 tablet 03/12/20 Unknown Rx cefUROXime [Ceftin] 500 mg PO QID #20 tablet 03/12/20 Unknown Rx Gentamicin 0.3% Ophth Oint 1 applicatio OP Q8H #1 bottle 04/03/20 Unknown Rx Oxycodone HCl/Acetaminophen 1 each PO Q6HR PRN #16 tablet 04/03/20 Unknown Rx [Percocet 7.5/325 mg] Triamcinolone 0.1% [Kenalog 0.1% 454 gm TP TID #1 bottle 04/03/20 Unknown Rx CREAM] Naproxen 500 mg PO Q12H PRN #24 tablet 04/27/20 Unknown Rx Triamcinolone 0.5% [Kenalog 0.5% 1 applic TP BID #454 tube 04/27/20 Unknown Rx CREAM] cephALEXin [Keflex] 500 mg PO Q8HR #30 cap 04/27/20 Unknown Rx predniSONE [Deltasone] 40 mg PO QDAY #10 tab 04/27/20 Unknown Rx tiZANidine [Zanaflex 4mg TAB] 4 mg PO Q8H PRN #24 tablet 04/27/20 Unknown Rx Allergies Allergy/AdvReac Type Severity Reaction Status Date / Time No Known Allergies Allergy Verified 12/01/19 16:01 ED Review of Systems ROS: Stated complaint: HIP PAIN Other details as noted in HPI Constitutional: denies: chills, fever Eyes: denies: eye pain, eye discharge, vision change ENT: denies: ear pain, throat pain Respiratory: denies: cough, shortness of breath, wheezing Cardiovascular: denies: chest pain, palpitations Endocrine: no symptoms reported Gastrointestinal: denies: abdominal pain, nausea, diarrhea Genitourinary: denies: urgency, dysuria, discharge Musculoskeletal: back pain, arthralgia (Right hip pain), myalgia (Low back pain). denies: joint swelling Skin: denies: rash, lesions Neurological: denies: headache, weakness, paresthesias Psychiatric: denies: anxiety, depression Hematological/Lymphatic: denies: easy bleeding, easy bruising ED Past Medical Hx - Past Medical History Previous Medical History?: Yes Hx Hypertension: Yes Hx CVA: No Hx Heart Attack/AMI: No Hx Congestive Heart Failure: No Hx Diabetes: No Hx Pulmonary Embolism: No Hx GERD: No Hx Liver Disease: Yes (CIRRHOSIS) Hx Renal Disease: No Hx Sickle Cell Disease: No Hx Arthritis: Yes (knees arms hands) Hx Headaches / Migraines: No Hx Seizures: No Hx Kidney Stones: No Hx Psychiatric Treatment: Yes (anxiety, DEPRESSION) Hx Asthma: No Hx COPD: No Hx Tuberculosis: No Hx Dementia: No Hx HIV: No Additional medical history: psoriasis - Surgical History Past Surgical History?: Yes Hx Appendectomy: Yes Additional Surgical History: - Social History Smoking Status: Current Every Day Smoker Substance Use Type: None - Medications Home Medications: Home Medications Medication Instructions Recorded Confirmed Last Taken Type Furosemide [Lasix TAB] 40 mg PO QDAY #30 tablet 03/12/20 Unknown Rx Oxycodone HCl/Acetaminophen 1 each PO Q8H PRN #20 tablet 03/12/20 Unknown Rx [Percocet 7.5/325 mg] Potassium Chloride [K-Dur] 20 meq PO QDAY 30 Days #30 tablet 03/12/20 Unknown Rx cefUROXime [Ceftin] 500 mg PO QID #20 tablet 03/12/20 Unknown Rx Gentamicin 0.3% Ophth Oint 1 applicatio OP Q8H #1 bottle 04/03/20 Unknown Rx Oxycodone HCl/Acetaminophen 1 each PO Q6HR PRN #16 tablet 04/03/20 Unknown Rx [Percocet 7.5/325 mg] Triamcinolone 0.1% [Kenalog 0.1% 454 gm TP TID #1 bottle 04/03/20 Unknown Rx CREAM] Naproxen 500 mg PO Q12H PRN #24 tablet 04/27/20 Unknown Rx Triamcinolone 0.5% [Kenalog 0.5% 1 applic TP BID #454 tube 04/27/20 Unknown Rx CREAM] cephALEXin [Keflex] 500 mg PO Q8HR #30 cap 04/27/20 Unknown Rx predniSONE [Deltasone] 40 mg PO QDAY #10 tab 04/27/20 Unknown Rx tiZANidine [Zanaflex 4mg TAB] 4 mg PO Q8H PRN #24 tablet 04/27/20 Unknown Rx ED Physical Exam - General Limitations: No Limitations General appearance: alert, in no apparent distress - Head Head exam: Present: atraumatic, normocephalic, normal inspection - Eye Eye exam: Present: normal appearance, PERRL, EOMI - ENT ENT exam: Present: normal exam, normal orophraynx, mucous membranes moist, TM's normal bilaterally, normal external ear exam - Neck Neck exam: Present: normal inspection, full ROM. Absent: tenderness - Respiratory Respiratory exam: Present: normal lung sounds bilaterally. Absent: respiratory distress, wheezes, rales, stridor, chest wall tenderness, accessory muscle use, decreased breath sounds - Cardiovascular Cardiovascular Exam: Present: normal rhythm, tachycardia, normal heart sounds. Absent: systolic murmur, diastolic murmur, rubs, gallop - GI/Abdominal GI/Abdominal exam: Present: soft, normal bowel sounds, hernia. Absent: distended, tenderness, guarding, hyperactive bowel sounds, hypoactive bowel sounds - Extremities Exam Extremities exam: Present: normal inspection, full ROM, tenderness (Palpable right hip tenderness ), normal capillary refill. Absent: calf tenderness - Back Exam Back exam: Present: normal inspection, full ROM, tenderness (Palpable mild lumbosacral paraspinal musculoskeletal tenderness), muscle spasm, paraspinal tenderness. 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, upper and lower extremities bilaterally) ED Course Vital Signs 04/27/20 02:47 Temperature 98.4 F Pulse Rate 106 H Respiratory 18 Rate Blood Pressure 125/84 O2 Sat by Pulse 97 Oximetry ED Medical Decision Making - Radiology Data Findings [facility] [address] [place] [address] XRay Report Signed Patient: MAGY IYER MR#: [id number] : 1970 Acct:[id number] Age/Sex: 49 / F ADM Date: 04/27/20 Loc: ED Attending Dr: Ordering Physician: SHERRIE CARRANZA MD Date of Service: 04/27/20 Procedure(s): XR hip 2-3V RT Accession Number(s): [id number] cc: ED MD DILLON Fluoro Time In Minutes: RIGHT HIP 2 VIEWS INDICATION / CLINICAL INFORMATION: MAIN. COMPARISON: None available. FINDINGS: Very mild degenerative change. No fracture or other acute abnormality. Signer Name: Juliano Mosquera MD Signed: 04/27/2020 3:43 AM Workstation Name: [id number] Transcribed By: TM Dictated By: Juliano Mosquera MD Electronically Authenticated By: Juliano Mosquera MD Signed Date/Time: 04/27/20342 DD/ 1 TD/TT: - Medical Decision Making This is a 49-year-old white female with a history of hypertension, chronic osteoarthritis, anxiety and depression, chronic psoriasis and liver cirrhosis who presents to the ED with worsening right hip pain after she slipped and fell down the stairs 3 days ago. Patient states that she has been taking [id number] pain medications with no relief. In the ED, patient is alert and oriented x3 and is not in distress. Patient was treated for pain in the ED. Right hip x-ray shows no acute fractures or subluxations. On reevaluation, patient pain is well controlled medication. Patient will discharge home on pain medications and advised follow-up with her primary care physician in 5 to 7 days for reevaluation. Patient was advised return to the ED immediately if symptoms get worse. - Differential Diagnosis Chronic pain; osteoarthritis; hip sprain; muscle strain; back spasm Critical care attestation.: If time is entered above; I have spent that time in minutes in the direct care o f this critically ill patient, excluding procedure time. ED Disposition Clinical Impression: Chronic pain syndrome, Strain of muscle, fascia and tendon of right hip, initial encounter, Abrasions of multiple sites, Psoriasis, unspecified Contusion of right hip and thigh Qualifiers: Encounter type: initial encounter Qualified Code(s): S70.01XA - Contusion of right hip, initial encounter; S70.11XA - Contusion of right thigh, initial encounter Disposition: DC- TO HOME OR SELFCARE Is pt being admited?: No Does the pt Need Aspirin: No Condition: Stable Instructions: Muscle Strain (ED), Muscle Spasm (ED), Chronic Pain (ED), Abrasion (ED), Psoriasis (ED) Additional Instructions: The right hip x-ray showed no acute fractures or subluxations. Take medication with food, drink plenty of fluids and follow-up with your primary care physician in 5 to 7 days for reevaluation. Return to the ED immediately if symptoms get worse. Prescriptions: predniSONE [Deltasone] 40 mg PO QDAY #10 tab cephALEXin [Keflex] 500 mg PO Q8HR #30 cap Triamcinolone 0.5% [Kenalog 0.5% CREAM] 1 applic TP BID #454 tube Naproxen 500 mg PO Q12H PRN #24 tablet PRN Reason: Pain , Severe (7-10) tiZANidine [Zanaflex 4mg TAB] 4 mg PO Q8H PRN #24 tablet PRN Reason: Muscle Spasm Referrals: [facility] [place] [Outside] - 3-5 Days [facility] [Provider Group] - 3-5 Days Time of Disposition: 05:53 Print Language: MICRONESIAN
== END 2020-04-27 06:40 | disposition home or self-care (01) ==
LOC: ED 01:24
DX: S76.011A Strain of muscle, fascia and tendon of right hip, initial encounter (principal); S70.11XA Contusion of right thigh, initial encounter; S70.02XA Contusion of left hip, initial encounter; L40.9 Psoriasis, unspecified; G89.29 Other chronic pain; I10 Essential (primary) hypertension; M19.90 Unspecified osteoarthritis, unspecified site; F41.9 Anxiety disorder, unspecified; F32.9 Major depressive disorder, single episode, unspecified; F17.200 Nicotine dependence, unspecified, uncomplicated; W10.9XXA Fall (on) (from) unspecified stairs and steps, initial encounter; Y93.89 Activity, other specified; Y92.89 Other specified places as the place of occurrence of the external cause; Y99.8 Other external cause status
CPT/HCPCS: 73502; 96372; 99284; J1100; J1885

== ENCOUNTER 2020-05-17 15:47 | Emergency (ER) | payer MEDICAID ==
--- NOTE | 2020-05-17 17:30 | Event Note ---
ED Screening Note ED Screening Note: abd pain hx of hernia n/v no BM x3 days This initial assessment/diagnostic orders/clinical plan/treatment(s) is/are subject to change based on patients health status, clinical progression and re- assessment by fellow clinical providers in the ED. Further treatment and workup at subsequent clinical providers discretion. Patient/guardian urged not to elope from the ED as their condition may be serious if not clinically assessed and managed. Initial orders include: labs ua ct
[2020-05-17 19:01] VITALS: BP 106/74
== END 2020-05-17 19:15 | disposition left against medical advice (07) ==
LOC: ED 15:47
DX: R10.9 Unspecified abdominal pain (principal); Z53.21 Procedure and treatment not carried out due to patient leaving prior to being seen by health care provider

== ENCOUNTER 2020-05-31 08:49 | Emergency (ER) | payer MEDICAID ==
[2020-05-31] MEDS ORDERED: ONDANSETRON 4 MG/2 ML INJ IV ONE (09:35)
[2020-05-31] MEDS ORDERED: KETOROLAC 30 MG/1 ML INJ IV ONE (09:35)
--- NOTE | 2020-05-31 09:41 | Emergency Department Report ---
HPI - General Chief Complaint: Dyspnea/Respdistress Time Seen by Provider: 05/31/20 09:18 - HPI HPI: This is a 49-year-old female who presents to the emergency department via EMS with the complaints of pain and swelling to the left lower leg, left- sided body pain, nausea without vomiting, shortness of breath. She has a past medical history that includes tobacco use, alcoholic cirrhosis, portal hypertension, psoriasis, depression and anxiety. The patient was admitted here about 1 week ago with a left lower leg cellulitis. She had a negative left lower extremity venous Doppler ultrasound for DVT on 05/23. Patient had an infectious disease consult and was ultimately discharged home on Keflex. Patient says that she has developed increased psoriatic wounds to the bilateral lower extremities, buttocks, abdomen. No recent travel. Patient's daughter is currently being seen here for some similar symptoms of nausea, body aches, shortness of breath. ED Past Medical Hx - Past Medical History Hx Hypertension: Yes Hx Liver Disease: Yes (CIRRHOSIS) Hx Renal Disease: No Hx Sickle Cell Disease: No Hx Arthritis: Yes (knees arms hands) Hx Headaches / Migraines: No Hx Seizures: No Hx Kidney Stones: No Hx Psychiatric Treatment: Yes (anxiety, DEPRESSION) Hx Asthma: No Hx COPD: No Hx Tuberculosis: No Hx Dementia: No Hx HIV: No Additional medical history: psoriasis - Surgical History Hx Appendectomy: Yes Additional Surgical History: - Social History Smoking Status: Former Smoker Substance Use Type: None - Medications Home Medications: Home Medications Medication Instructions Recorded Confirmed Last Taken Type Acetaminophen [Tylenol] 650 mg PO BID PRN 05/23/20 05/23/20 1 Day Ago History ~05/22/20 Ibuprofen [Motrin 200 MG tab] 200 mg PO Q6H PRN 05/23/20 05/23/20 05/23/20 08:00 History Acetaminophen [Acetaminophen TAB] 650 mg PO BID PRN tablet 05/26/20 Unknown Rx Hydrocortisone 1% [Hydrocortisone 1 applic TP Q8H PRN #7 tube 05/26/20 Unknown Rx 1% CREAM] cephALEXin [Keflex] 500 mg PO Q6HR #40 capsule 05/26/20 Unknown Rx diphenhydrAMINE [Benadryl CAP] 25 mg PO Q6H PRN #20 capsule 05/26/20 Unknown Rx oxyCODONE /ACETAMINOPHEN [Percocet 1 tab PO Q6H PRN #60 tablet 05/26/20 Unknown Rx 5/325 mg] HYDROcodone/APAP 5-325 [[place] 1 each PO Q6HR PRN #12 tablet 05/31/20 Unknown Rx 5/325] cephALEXin [Keflex] 500 mg PO Q6HR #40 capsule 05/31/20 Unknown Rx ED Review of Systems ROS: Stated complaint: GRACIA/SOB Other details as noted in HPI Comment: All other systems reviewed and negative Constitutional: denies: chills, fever Eyes: denies: eye pain, vision change ENT: denies: ear pain, throat pain Respiratory: cough, shortness of breath Cardiovascular: edema. denies: chest pain, palpitations Gastrointestinal: nausea. denies: abdominal pain, vomiting Genitourinary: denies: dysuria, discharge Musculoskeletal: arthralgia, myalgia Skin: rash, pruritus Neurological: denies: headache, numbness Physical Exam - Physical Exam Vital Signs: Vital Signs 05/31/20 09:20 Temperature 98.2 F Pulse Rate 103 H Respiratory 13 Rate Blood Pressure 117/74 [Left] O2 Sat by Pulse 100 Oximetry Physical Exam: GENERAL: The patient is well-developed well-nourished. HENT: Normocephalic. Atraumatic. Patient has moist mucous membranes. EYES: Extraocular motions are intact. NECK: Supple. Trachea is midline. CHEST/LUNGS: Clear to auscultation. There is no respiratory distress noted. HEART/CARDIOVASCULAR: Regular. There is no tachycardia. There is no murmur. ABDOMEN: Abdomen is soft, nontender. Patient has normal bowel sounds. SKIN: There is nonpitting swelling to the left lower extremity from the knee distally. There is also erythema seen to the circumferential distal left lower extremity and some mild erythema seen to the anterior right distal lower extremity. No areas of fluctuance. No bleeding, drainage, weeping. There are multiple areas of psoriatic lesions to the bilateral lower extremities, mid to lower abdomen. NEURO: The patient is awake, alert, and oriented. The patient is cooperative. Normal speech. MUSCULOSKELETAL: Tenderness to palpation to the left lower extremity. There is no limitation range of motion. ED Course Vital Signs 05/31/20 09:20 Temperature 98.2 F Pulse Rate 103 H Respiratory 13 Rate Blood Pressure 117/74 [Left] O2 Sat by Pulse 100 Oximetry - Reevaluation(s) Reevaluation #1: 05/31/20 16:02 Lab Results 05/31/20 05/31/20 05/31/20 Range/Units 09:38 09:38 09:38 WBC 4.8 (4.5-11.0) K/mm3 RBC 3.36 L (3.65-5.03) M/mm3 Hgb 8.7 L (10.1-14.3) gm/dl Hct 27.1 L (30.3-42.9) % MCV 81 (79-97) fl MCH 26 L (28-32) pg MCHC 32 (30-34) % RDW 21.8 H (13.2-15.2) % Plt Count 173 (140-440) K/mm3 [place] % (Auto) Senior Accounts Payable Clerk Add Manual Diff Complete Total Counted 100 Seg Neuts % (Manual) 56.0 (40.0-70.0) % Band Neutrophils % 1.0 % Lymphocytes % (Manual) 28.0 (13.4-35.0) % Reactive Lymphs % (Man) 0 % Monocytes % (Manual) 9.0 H (0.0-7.3) % Eosinophils % (Manual) 5.0 H (0.0-4.3) % Basophils % (Manual) 0 (0.0-1.8) % Metamyelocytes % 0 % Myelocytes % 1.0 % Promyelocytes % 0 % Blast Cells % 0 % Nucleated RBC % Not Reportable Seg Neutrophils # Man 2.7 (1.8-7.7) K/mm3 Band Neutrophils # 0.0 K/mm3 Lymphocytes # (Manual) 1.3 (1.2-5.4) K/mm3 Abs React Lymphs (Man) 0.0 K/mm3 Monocytes # (Manual) 0.4 (0.0-0.8) K/mm3 Eosinophils # (Manual) 0.2 (0.0-0.4) K/mm3 Basophils # (Manual) 0.0 (0.0-0.1) K/mm3 Metamyelocytes # 0.0 K/mm3 Myelocytes # 0.0 K/mm3 Promyelocytes # 0.0 K/mm3 Blast Cells # 0.0 K/mm3 WBC Morphology Not Reportable Hypersegmented Neuts Not Reportable Hyposegmented Neuts Not Reportable Hypogranular Neuts Not Reportable Smudge Cells Not Reportable Toxic Granulation Not Reportable Toxic Vacuolation Not Reportable Dohle Bodies Not Reportable Pelger-Huet Anomaly Not Reportable [place] Rods Not Reportable Platelet Estimate Consistent w auto Clumped Platelets Not Reportable Plt Clumps, EDTA Not Reportable Large Platelets Rare Giant Platelets Not Reportable Platelet Satelliting Not Reportable Plt Morphology Comment Not Reportable RBC Morphology Not Reportable Dimorphic RBCs Not Reportable Polychromasia Not Reportable Hypochromasia 1+ Poikilocytosis Not Reportable Anisocytosis Few Microcytosis Not Reportable Macrocytosis Few Spherocytes Not Reportable Pappenheimer Bodies Not Reportable Sickle Cells Not Reportable Target Cells Not Reportable Tear Drop Cells Not Reportable Ovalocytes Not Reportable Helmet Cells Not Reportable Arnett-[employer] Bodies Not Reportable [place] Rings Not Reportable [place] Cells Not Reportable Bite Cells Not Reportable Crenated Cell Not Reportable Elliptocytes Not Reportable Acanthocytes (Spur) Not Reportable Rouleaux Not Reportable Hemoglobin C Crystals Not Reportable Schistocytes Not Reportable Malaria parasites Not Reportable Rangel Bodies Not Reportable Hem Pathologist Commnt No D-Dimer 1984.58 H (0-234) ng/mlDDU Sodium 138 (137-145) mmol/L Potassium 3.8 (3.6-5.0) mmol/L Chloride 106.1 (98-107) mmol/L Carbon Dioxide 25 (22-30) mmol/L Anion Gap 11 mmol/L BUN 6 L (7-17) mg/dL Creatinine 0.4 L (0.6-1.2) mg/dL Estimated GFR > 60 ml/min BUN/Creatinine Ratio 15 % Glucose 91 (65-100) mg/dL Calcium 7.9 L (8.4-10.2) mg/dL Total Bilirubin 0.70 (0.1-1.2) mg/dL AST 39 (5-40) units/L ALT 13 (7-56) units/L Alkaline Phosphatase 160 H (35-129) units/L Troponin T < 0.010 (0.00-0.029) ng/mL NT-Pro-B Natriuret Pep 35.28 (0-900) pg/mL Total Protein 6.2 L (6.3-8.2) g/dL Albumin 2.3 L (3.9-5) g/dL Albumin/Globulin Ratio 0.6 % Reevaluation #2: 05/31/20 16:02 Vital Signs 05/31/20 05/31/20 05/31/20 09:18 09:20 09:30 Temperature 98.2 F Pulse Rate 103 H Respiratory 13 Rate Blood Pressure 117/74 117/77 Blood Pressure 117/74 [Left] O2 Sat by Pulse 100 100 Oximetry 05/31/20 05/31/20 05/31/20 10:00 10:30 10:46 Temperature Pulse Rate Respiratory 12 Rate Blood Pressure 114/64 92/56 Blood Pressure [Left] O2 Sat by Pulse 98 98 Oximetry 05/31/20 05/31/20 05/31/20 11:00 11:30 13:03 Temperature Pulse Rate Respiratory Rate Blood Pressure 98/56 103/58 119/82 Blood Pressure [Left] O2 Sat by Pulse 98 97 99 Oximetry ED Medical Decision Making - Lab Data Result diagrams: 05/31/20 09:38 05/31/20 09:38 - Radiology Data Radiology results: report reviewed CTA CHEST WITH IV CONTRAST INDICATION: Acute onset chest pain with dyspnea. TECHNIQUE: Axial CT images were obtained through the chest after injection of 100 mL IV contrast. 3 plane MIP reconstructions were produced. All CT scans at this location are performed using CT dose reduction for ALARA by means of automated exposure control. COMPARISON: None available. FINDINGS: PULMONARY ARTERIES: No pulmonary emboli. Detection is somewhat limited secondary to respiratory motion artifact secondary to patient dyspnea. AORTA AND ARTERIES: No acute abnormality. MEDIASTINUM: No mass, lymphadenopathy or other significant abnormality. The heart is normal in size without a pericardial effusion. The trachea and main bronchi are patent and normal in caliber. LUNGS: No suspicious consolidation, nodule or mass. No pneumothorax or pleural effusion. ADDITIONAL FINDINGS: None. UPPER ABDOMEN: Cirrhotic appearing liver with ascites and splenomegaly consistent with portal venous hypertension. Cholelithiasis. Suspect multiple perigastric varices.. BONES: No significant osseous abnormality. IMPRESSION: 1. No CT evidence for pulmonary embolism. 2. No acute findings. DUPLEX DOPPLER LOWER EXTREMITY VEINS, LEFT INDICATION: Left lower extremity pain and swelling. TECHNIQUE: Duplex doppler imaging was performed through the veins of the left lower extremity using venous compression and other maneuvers. COMPARISON: None available. FINDINGS: Common Femoral vein: Negative. Superficial Femoral vein: Negative. Popliteal vein: Negative. Calf veins: Negative. Additional findings: Moderate subcutaneous edema of the left lower extremity. IMPRESSION: 1. No sonographic evidence for DVT in the left lower extremity. - Medical Decision Making This patient presents to the emergency department with continued pain and swelling to the left lower extremity and now the patient says that she is having pain along her entire left side, and also has a complaint of shortness of breath. Vital signs have been reassuring throughout her ED course including being afebrile. Patient's labs have been mostly unremarkable including CBC, metabolic panel, LFTs, negative troponin, low proBNP. She does have some anemia consistent with previous visits and has a very elevated D-dimer level of close to 2000. For this reason the patient had a CT angiography of the chest that did not show any pulmonary embolism, dissection, or any other acute process. She had a left lower extremity venous Doppler ultrasound that was negative for any acute DVT. Patient was given anti-inflammatories and analgesia. Patient is seen ambulatory in the emergency department and both appears and feels stable. The patient later admitted that she did not get her prescription filled for the antibiotics from when she was here about 1 week ago. I looked on the [place] prescription monitoring. While she did have some oral morphine filled recently, the patient did not apparently receive or fill the prescription that was mentioned in the discharge summary including the large amount of Percocet. The patient has been given a new prescription for the Keflex and a small amount of pain medication. She has been instructed to follow-up with her primary care physician and bonding molder, and return to the emergency department with any worsening of her symptoms or with any acute distress. Critical Care Time: No Critical care attestation.: If time is entered above; I have spent that time in minutes in the direct care of this critically ill patient, excluding procedure time. ED Disposition Clinical Impression: Left leg cellulitis, Left leg pain, Psoriasis Anemia Qualifiers: Anemia type: unspecified type Qualified Code(s): D64.9 - Anemia, unspecified Disposition: DC-01 TO HOME OR SELFCARE Is pt being admited?: No Condition: Stable Instructions: Cellulitis, Adult, Psoriasis Additional Instructions: Please follow-up with a primary care physician in the next few days. Continue the antibiotics previously prescribed. Return to the emergency department with any worsening of your symptoms, new or concerning symptoms not addressed during this current emergency department visit, or with any acute distress. Prescriptions: cephALEXin [Keflex] 500 mg PO Q6HR #40 capsule HYDROcodone/APAP 5-325 [[place] 5/325] 1 each PO Q6HR PRN #12 tablet PRN Reason: Pain Referrals: PRIMARY CARE, [Primary Care Provider] - 2-3 Days Time of Disposition: 13:24
[2020-05-31 10:11] LABS: Hematocrit 27.1 % (30.3-42.9); Hemoglobin 8.7 gm/dl (10.1-14.3); Mean Corpuscular HGB Conc 32 % (30-34); Mean Corpuscular Volume 81 fl (79-97); Platelet Count 173 K/mm3 (140-440); Red Blood Count 3.36 M/mm3 (3.65-5.03)
[2020-05-31 10:18] LABS: Red Cell Distribution Width 21.8 % (13.2-15.2)
--- NOTE | 2020-05-31 10:18 | XRay Report ---
. CHEST 1 VIEW INDICATION / CLINICAL INFORMATION: SOB. COMPARISON: 05/23/2020 FINDINGS: SUPPORT DEVICES: None. HEART / MEDIASTINUM: Stable. LUNGS / PLEURA: No significant pulmonary or pleural abnormality. No pneumothorax. ADDITIONAL FINDINGS: No significant additional findings. IMPRESSION: 1. No acute findings. No significant interval change since 05/23/2020. Signer Name: Kade Kwon MD Signed: 05/31/2020 10:13 AM Workstation Name: [id number]
[2020-05-31 10:35] LABS: Alanine Aminotransferase 13 units/L (7-56); Albumin 2.3 g/dL (3.9-5); Blood Urea Nitrogen 6 mg/dL (7-17); Calcium 7.9 mg/dL (8.4-10.2); Hemolysis Index 1
[2020-05-31 11:02] LABS: BUN/Creatinine Ratio 15
[2020-05-31 11:24] LABS: Anisocytosis Few; Basophils % (Manual) 0 % (0.0-1.8); Hypochromasia 1+; Large Platelets Rare; Macrocytosis Few; Platelet Estimate Consistent w Auto; Total Cells Counted 100
[2020-05-31] MEDS ORDERED: HYDROcodone/ACETAMINOPHEN 5-325 MG TAB PO ONE (11:52)
--- NOTE | 2020-05-31 12:46 | Cat Scan Report ---
CTA CHEST WITH IV CONTRAST INDICATION: Acute onset chest pain with dyspnea. TECHNIQUE: Axial CT images were obtained through the chest after injection of 100 mL IV contrast. 3 plane MIP re constructions were produced. All CT scans at this location are performed using CT dose reduction for ALARA by means of automated exposure control. COMPARISON: None available. FINDINGS: PULMONARY ARTERIES: No pulmonary emboli. Detection is somewhat limited secondary to respiratory motio n artifact secondary to patient dyspnea. AORTA AND ARTERIES: No acute abnormality. MEDIASTINUM: No mass, lymphadenopathy or other significant abnormality. The heart is normal in size w ithout a pericardial effusion. The trachea and main bronchi are patent and normal in caliber. LUNGS: No suspicious consolidation, nodule or mass. No pneumothorax or pleural effusion. ADDITIONAL FINDINGS: None. UPPER ABDOMEN: Cirrhotic appearing liver with ascites and splenomegaly consistent with portal venous hypertension. Cholelithiasis. Suspect multiple perigastric varices.. BONES: No significant osseous abnormality. IMPRESSION: 1. No CT evidence for pulmonary embolism. 2. No acute findings. Signer Name: Ephraim Clark MD Signed: 05/31/2020 12:42 PM Workstation Name: [id number]
--- NOTE | 2020-05-31 12:58 | Vascular Lab Report ---
DUPLEX DOPPLER LOWER EXTREMITY VEINS, LEFT INDICATION: Left lower extremity pain and swelling. TECHNIQUE: Duplex doppler imaging was performed through the veins of the left lower extremity using venous compr ession and other maneuvers. COMPARISON: None available. FINDINGS: Common Femoral vein: Negative. Superficial Femoral vein: Negative. Popliteal vein: Negative. Calf veins: Negative. Additional findings: Moderate subcutaneous edema of the left lower extremity. IMPRESSION: 1. No sonographic evidence for DVT in the left lower extremity. Signer Name: Ephraim Clark MD Signed: 05/31/2020 12:54 PM Workstation Name: [id number]
[2020-05-31 13:15] VITALS: BP 119/82
== END 2020-05-31 13:00 | disposition home or self-care (01) ==
LOC: ED 08:49
DX: L03.116 Cellulitis of left lower limb (principal); M79.605 Pain in left leg; L40.9 Psoriasis, unspecified; D64.9 Anemia, unspecified; I10 Essential (primary) hypertension; M19.91 Primary osteoarthritis, unspecified site; F32.9 Major depressive disorder, single episode, unspecified; F41.9 Anxiety disorder, unspecified; Z98.890 Other specified postprocedural states; Z87.891 Personal history of nicotine dependence; Z79.1 Long term (current) use of non-steroidal anti-inflammatories (NSAID); Z79.899 Other long term (current) drug therapy; Z88.8 Allergy status to other drugs, medicaments and biological substances
CPT/HCPCS: 36415; 71045; 71275; 80053; 83880; 84484; 85007; 85025; 85379; 93971; 96374; 96375; 99285; J1885; J2405; Q9967

== ENCOUNTER 2020-06-17 03:54 | Emergency (ER) | payer MEDICAID ==
[2020-06-17] MEDS ORDERED: SODIUM CHLORIDE 0.9% 1000 ML 1,000 ML IV ONE (07:44)
[2020-06-17] MEDS ORDERED: HYDROmorphone 1 MG/1 ML INJ IV ONE ×2 (07:46→09:47)
[2020-06-17] MEDS ORDERED: ONDANSETRON 4 MG/2 ML INJ IV ONE (07:46)
[2020-06-17 08:08] LABS: Basophils # (Auto) 0.1 K/mm3 (0.0-0.1); Basophils % (Auto) 1.3 % (0.0-1.8); Eosinophils # (Auto) 0.2 K/mm3 (0.0-0.4); Eosinophils % (Auto) 5.3 % (0.0-4.3); Hematocrit 32.1 % (30.3-42.9); Hemoglobin 10.1 gm/dl (10.1-14.3); Lymphocytes # (Auto) 1.4 K/mm3 (1.2-5.4); Lymphocytes % (Auto) 34.1 % (13.4-35.0); Mean Corpuscular HGB Conc 31 % (30-34); Mean Corpuscular Volume 84 fl (79-97); Monocytes # (Auto) 0.5 K/mm3 (0.0-0.8); Monocytes % (Auto) 12.4 % (0.0-7.3); Red Blood Count 3.84 M/mm3 (3.65-5.03)
[2020-06-17 08:09] LABS: Platelet Count 99 K/mm3 (140-440)
[2020-06-17 08:30] LABS: Alanine Aminotransferase 12 units/L (7-56); Albumin 2.8 g/dL (3.9-5); Blood Urea Nitrogen 2 mg/dL (7-17); Calcium 8.2 mg/dL (8.4-10.2); Hemolysis Index 26
[2020-06-17 08:39] LABS: BUN/Creatinine Ratio 5
[2020-06-17 09:00] LABS: Bilirubin,Urine NEG (Negative); Blood,Urine SM (Negative); Color,Urine Yellow (Yellow); Mucus,Urine 2+ /HPF; Protein,Urine <15 mg/dL mg/dL (Negative)
--- NOTE | 2020-06-17 09:09 | Emergency Department Report ---
ED Abdominal Pain HPI - General Chief Complaint: Pain General Stated Complaint: BODY PAIN Time Seen by Provider: 06/17/20 07:44 Source: patient Mode of arrival: Stretcher Limitations: No Limitations - History of Present Illness Initial Comments: This is a 49-year-old female nontoxic, well nourished in appearance, no acute signs of distress presents to the ED with c/o of nausea and generalized abdominal pain x several days. Patient denies any vomiting. Patient describes abdominal pain as cramping and aching with level of 8/10 diffuse. Patient den ies chest pain, short of breath, fever, hemoptysis, blood in stool, chills, headache, stiff neck, numbness or tingling. Patient denies any diarrhea or constipation. Denies any blood in stool. Patient denies any recent travels. Patient stated allergies to morphine but denies any allergies to Dilaudid. MD Complaint: abdominal pain -: days(s) Location: diffuse Radiation: none Migration to: no migration Severity: mild Severity scale (0 -10): 8 Quality: cramping, aching Consistency: constant Improves With: nothing Worsens With: nothing Associated Symptoms: nausea. denies: vomiting, diarrhea, fever, chills, constipation, dysuria, hematemesis, hematochezia, melena, anorexia, syncope - Related Data Home Medications Medication Instructions Recorded Confirmed Last Taken Acetaminophen [Tylenol] 650 mg PO BID PRN 05/23/20 05/23/20 1 Day Ago ~05/22/20 Ibuprofen [Motrin 200 MG tab] 200 mg PO Q6H PRN 05/23/20 05/23/20 05/23/20 08:00 Previous Rx's Medication Instructions Recorded Last Taken Type Acetaminophen [Acetaminophen TAB] 650 mg PO BID PRN tablet 05/26/20 Unknown Rx Hydrocortisone 1% [Hydrocortisone 1 applic TP Q8H PRN #7 tube 05/26/20 Unknown Rx 1% CREAM] cephALEXin [Keflex] 500 mg PO Q6HR #40 capsule 05/26/20 Unknown Rx diphenhydrAMINE [Benadryl CAP] 25 mg PO Q6H PRN #20 capsule 05/26/20 Unknown Rx oxyCODONE /ACETAMINOPHEN [Percocet 1 tab PO Q6H PRN #60 tablet 05/26/20 Unknown Rx 5/325 mg] HYDROcodone/APAP 5-325 [[place] 1 each PO Q6HR PRN #12 tablet 05/31/20 Unknown Rx 5/325] cephALEXin [Keflex] 500 mg PO Q6HR #40 capsule 05/31/20 Unknown Rx Ciprofloxacin HCl [Ciprofloxacin 500 mg PO Q12HR #20 tab 06/17/20 Unknown Rx TAB] Naproxen 500 mg PO Q12H PRN #12 tablet 06/17/20 Unknown Rx Ondansetron [Zofran Odt] 4 mg PO Q8HR PRN #20 tab.rapdis 06/17/20 Unknown Rx metroNIDAZOLE [Flagyl] 500 mg PO Q12HR #20 tab 06/17/20 Unknown Rx Allergies Allergy/AdvReac Type Severity Reaction Status Date / Time morphine Allergy Unknown Verified 05/23/20 12:36 ED Review of Systems ROS: Stated complaint: BODY PAIN Other details as noted in HPI Comment: All other systems reviewed and negative Constitutional: denies: chills, fever Eyes: denies: eye pain, eye discharge, vision change ENT: denies: ear pain, throat pain Respiratory: denies: cough, shortness of breath, wheezing Cardiovascular: denies: chest pain, palpitations Endocrine: no symptoms reported Gastrointestinal: abdominal pain, nausea. denies: vomiting, diarrhea, constipation, hematemesis, melena, hematochezia Genitourinary: denies: urgency, dysuria, discharge Musculoskeletal: denies: back pain, joint swelling, arthralgia Skin: denies: rash, lesions Neurological: denies: headache, weakness, paresthesias Psychiatric: denies: anxiety, depression Hematological/Lymphatic: denies: easy bleeding, easy bruising ED Past Medical Hx - Past Medical History Previous Medical History?: Yes Hx Hypertension: Yes Hx Liver Disease: Yes (CIRRHOSIS) Hx Renal Disease: No Hx Sickle Cell Disease: No Hx Arthritis: Yes (knees arms hands) Hx Headaches / Migraines: No Hx Seizures: No Hx Kidney Stones: No Hx Psychiatric Treatment: Yes (anxiety, DEPRESSION) Hx Asthma: No Hx COPD: No Hx Tuberculosis: No Hx Dementia: No Hx HIV: No Additional medical history: psoriasis. Chronic Pain - Surgical History Past Surgical History?: Yes Hx Appendectomy: Yes Additional Surgical History: - Social History Smoking Status: Never Smoker Substance Use Type: None - Medications Home Medications: Home Medications Medication Instructions Recorded Confirmed Last Taken Type Acetaminophen [Tylenol] 650 mg PO BID PRN 05/23/20 05/23/20 1 Day Ago History ~05/22/20 Ibuprofen [Motrin 200 MG tab] 200 mg PO Q6H PRN 05/23/20 05/23/20 05/23/20 08:00 History Acetaminophen [Acetaminophen TAB] 650 mg PO BID PRN tablet 05/26/20 Unknown Rx Hydrocortisone 1% [Hydrocortisone 1 applic TP Q8H PRN #7 tube 05/26/20 Unknown Rx 1% CREAM] cephALEXin [Keflex] 500 mg PO Q6HR #40 capsule 05/26/20 Unknown Rx diphenhydrAMINE [Benadryl CAP] 25 mg PO Q6H PRN #20 capsule 05/26/20 Unknown Rx oxyCODONE /ACETAMINOPHEN [Percocet 1 tab PO Q6H PRN #60 tablet 05/26/20 Unknown Rx 5/325 mg] HYDROcodone/APAP 5-325 [[place] 1 each PO Q6HR PRN #12 tablet 05/31/20 Unknown Rx 5/325] cephALEXin [Keflex] 500 mg PO Q6HR #40 capsule 05/31/20 Unknown Rx Ciprofloxacin HCl [Ciprofloxacin 500 mg PO Q12HR #20 tab 06/17/20 Unknown Rx TAB] Naproxen 500 mg PO Q12H PRN #12 tablet 06/17/20 Unknown Rx Ondansetron [Zofran Odt] 4 mg PO Q8HR PRN #20 tab.rapdis 06/17/20 Unknown Rx metroNIDAZOLE [Flagyl] 500 mg PO Q12HR #20 tab 06/17/20 Unknown Rx ED Physical Exam - General Limitations: No Limitations General appearance: alert, in no apparent distress - Head Head exam: Present: atraumatic, normocephalic - Eye Eye exam: Present: normal appearance - Neck Neck exam: Present: normal inspection, full ROM. Absent: tenderness, meningismus, lymphadenopathy - Respiratory Respiratory exam: Present: normal lung sounds bilaterally. Absent: respiratory distress, wheezes, rales, rhonchi, stridor, chest wall tenderness, accessory muscle use, decreased breath sounds, prolonged expiratory - Cardiovascular Cardiovascular Exam: Present: regular rate, normal rhythm, normal heart sounds. Absent: bradycardia, tachycardia, irregular rhythm, systolic murmur, diastolic murmur, rubs, gallop - GI/Abdominal GI/Abdominal exam: Present: soft, tenderness (Diffuse), normal bowel sounds, hernia (Reducible). Absent: distended, guarding, rebound, rigid, diminished bowel sounds - Extremities Exam Extremities exam: Present: normal inspection, full ROM - Back Exam Back exam: Present: normal inspection, full ROM. Absent: tenderness, CVA tenderness (R), CVA tenderness (L), muscle spasm, paraspinal tenderness, vertebral tenderness, rash noted - Neurological Exam Neurological exam: Present: alert, oriented X3, normal gait - Psychiatric Psychiatric exam: Present: normal affect, normal mood - Skin Skin exam: Present: warm, dry, intact, normal color. Absent: rash ED Course Vital Signs 06/17/20 06/17/20 05:11 12:16 Temperature 98.2 F Pulse Rate 94 H 93 H Respiratory 18 16 Rate Blood Pressure 120/84 Blood Pressure 112/59 [Left] O2 Sat by Pulse 99 98 Oximetry - Reevaluation(s) Reevaluation #1: 06/17/20 09:08 Patient is speaking in full sentences with no signs of distress noted. ED Medical Decision Making - Lab Data Result diagrams: 06/17/20 07:56 06/17/20 07:56 Lab Results 06/17/20 06/17/20 06/17/20 Range/Units 07:56 07:56 07:56 WBC 4.0 L (4.5-11.0) K/mm3 RBC 3.84 (3.65-5.03) M/mm3 Hgb 10.1 (10.1-14.3) gm/dl Hct 32.1 (30.3-42.9) % MCV 84 (79-97) fl MCH 26 L (28-32) pg MCHC 31 (30-34) % RDW 23.0 H (13.2-15.2) % Plt Count 99 L (140-440) K/mm3 Lymph % (Auto) 34.1 (13.4-35.0) % [place] % (Auto) 12.4 H (0.0-7.3) % Eos % (Auto) 5.3 H (0.0-4.3) % Baso % (Auto) 1.3 (0.0-1.8) % Lymph # (Auto) 1.4 (1.2-5.4) K/mm3 [place] # (Auto) 0.5 (0.0-0.8) K/mm3 Eos # (Auto) 0.2 (0.0-0.4) K/mm3 Baso # (Auto) 0.1 (0.0-0.1) K/mm3 Seg Neutrophils % 46.9 (40.0-70.0) % Seg Neutrophils # 1.9 (1.8-7.7) K/mm3 Sodium 139 (137-145) mmol/L Potassium 3.7 (3.6-5.0) mmol/L Chloride 108.2 H (98-107) mmol/L Carbon Dioxide 25 (22-30) mmol/L Anion Gap 10 mmol/L BUN 2 L (7-17) mg/dL Creatinine 0.4 L (0.6-1.2) mg/dL Estimated GFR > 60 ml/min BUN/Creatinine Ratio 5 % Glucose 94 (65-100) mg/dL Calcium 8.2 L (8.4-10.2) mg/dL Magnesium 1.60 L (1.7-2.3) mg/dL Total Bilirubin 1.00 (0.1-1.2) mg/dL AST 56 H (5-40) units/L ALT 12 (7-56) units/L Alkaline Phosphatase 249 H (35-129) units/L Total Protein 8.6 H (6.3-8.2) g/dL Albumin 2.8 L (3.9-5) g/dL Albumin/Globulin Ratio 0.5 % Lipase 63 H (13-60) units/L Urine Color (Yellow) Urine Turbidity (Clear) Urine pH (5.0-7.0) Ur Specific [place] (1.003-1.030) Urine Protein (Negative) mg/dL Urine Glucose (UA) (Negative) mg/dL Urine Ketones (Negative) mg/dL Urine Blood (Negative) Urine Nitrite (Negative) Urine Bilirubin (Negative) Urine Urobilinogen (<2.0) mg/dL Ur Leukocyte Esterase (Negative) Urine WBC (Auto) (0.0-6.0) /HPF Urine RBC (Auto) (0.0-6.0) /HPF U Epithel Cells (Auto) (0-13.0) /HPF Urine Mucus /HPF 11/29/20 Range/Units 08:38 WBC (4.5-11.0) K/mm3 RBC (3.65-5.03) M/mm3 Hgb (10.1-14.3) gm/dl Hct (30.3-42.9) % MCV (79-97) fl MCH (28-32) pg MCHC (30-34) % RDW (13.2-15.2) % Plt Count (140-440) K/mm3 Lymph % (Auto) (13.4-35.0) % [place] % (Auto) (0.0-7.3) % Eos % (Auto) (0.0-4.3) % Baso % (Auto) (0.0-1.8) % Lymph # (Auto) (1.2-5.4) K/mm3 [place] # (Auto) (0.0-0.8) K/mm3 Eos # (Auto) (0.0-0.4) K/mm3 Baso # (Auto) (0.0-0.1) K/mm3 Seg Neutrophils % (40.0-70.0) % Seg Neutrophils # (1.8-7.7) K/mm3 Sodium (137-145) mmol/L Potassium (3.6-5.0) mmol/L Chloride (98-107) mmol/L Carbon Dioxide (22-30) mmol/L Anion Gap mmol/L BUN (7-17) mg/dL Creatinine (0.6-1.2) mg/dL Estimated GFR ml/min BUN/Creatinine Ratio % Glucose (65-100) mg/dL Calcium (8.4-10.2) mg/dL Magnesium (1.7-2.3) mg/dL Total Bilirubin (0.1-1.2) mg/dL AST (5-40) units/L ALT (7-56) units/L Alkaline Phosphatase (35-129) units/L Total Protein (6.3-8.2) g/dL Albumin (3.9-5) g/dL Albumin/Globulin Ratio % Lipase (13-60) units/L Urine Color Yellow (Yellow) Urine Turbidity Clear (Clear) Urine pH 6.0 (5.0-7.0) Ur Specific [place] 1.014 (1.003-1.030) Urine Protein <15 mg/dl (Negative) mg/dL Urine Glucose (UA) Neg (Negative) mg/dL Urine Ketones Neg (Negative) mg/dL Urine Blood Sm (Negative) Urine Nitrite Neg (Negative) Urine Bilirubin Neg (Negative) Urine Urobilinogen 4.0 (<2.0) mg/dL Ur Leukocyte Esterase Mod (Negative) Urine WBC (Auto) 1.0 (0.0-6.0) /HPF Urine RBC (Auto) 2.0 (0.0-6.0) /HPF U Epithel Cells (Auto) 9.0 (0-13.0) /HPF Urine Mucus 2+ /HPF - Radiology Data Referring Physician: HARMAN COOPER Patient Name: MAGY IYER Date of : 1970 Sex: Female Report Date: 2020-06-17 Report Status: [place] [address] Cat Scan Report Signed Patient: MAGY IYER MR#: [id number] : 1970 Acct:[id number] Age/Sex: 49 / F ADM Date: 06/17/20 Loc: ED Attending Dr: Ordering Physician: HARMAN COOPER NP Date of Service: 06/17/20 Procedure(s): CT abdomen pelvis w con Accession Number(s): [id number] cc: HARMAN COOPER NP CT ABDOMEN AND PELVIS WITH CONTRAST INDICATION / CLINICAL INFORMATION: MAIN. Abdominal pain TECHNIQUE: Axial CT images were obtained through the abdomen and pelvis after IV contrast. All CT scans at this location are performed using CT dose reduction for ALARA by means of automated exposure control. COMPARISON: 04/02/2020. FINDINGS: LOWER CHEST: No significant abnormality. LIVER: Cirrhotic morphology of the liver is again noted. GALLBLADDER: Cholelithiasis without evidence of acute cholecystitis. BILE DUCTS: No significant abnormality. PANCREAS: No significant abnormality. SPLEEN: Persistent splenomegaly. ADRENALS: No significant abnormality. RIGHT KIDNEY / URETER: No significant abnormality. LEFT KIDNEY / URETER: No significant abnormality. STOMACH / SMALL BOWEL: Concentric thickening of small bowel loops in the left upper abdomen have not significantly changed since 04/02/2020. No significant perienteric fat stranding. COLON: Colonic diverticulosis is again noted with increased mural thickening and pericolonic fat stranding noted of the sigmoid colon. There is persistent edema noted within the wall of the cecum. APPENDIX: No significant abnormality. PERITONEUM: Persistent small volume peritoneal ascites No free air. No complex fluid collection. LYMPH NODES: Reactive appearing lymph nodes in the mesentery and retroperitoneum, the largest measuring 1.2 cm in short axis (series 2 image 89) have not significantly changed prior exam. AORTA / ARTERIES: Moderate ather osclerotic calcification without acute abnormality. IVC / VEINS: Sequela of portal hypertension with collaterals in the anterior abdomen. Hepatosplenic shunting.. URINARY BLADDER: No significant abnormality. REPRODUCTIVE ORGANS: No significant abnormality. ADDITIONAL FINDINGS: Fat-containing ventral abdominal wall hernia is stable since prior exam. SKELETAL SYSTEM: Multilevel degenerative changes are noted of the spine most prominent at L5-S1. No aggressive osseous lesions. Diffuse osteopenia. IMPRESSION: 1. Interval development of a mild uncomplicated sigmoid diverticulitis. 2. Cholelithiasis without acute cholecystitis, unchanged from prior exam. 3. Cirrhotic liver morphology with sequela of portal hypertension unchanged from prior exam. There is persistent small volume ascites. 4. Unchanged fat-containing ventral abdominal wall hernia. Signer Name: Kade Raya MD Signed: 06/17/2020 9:35 AM Workstation Name: [id number] Transcribed By: Dictated By: KADE RAYA Electronically Authenticated By: KADE RAYA Signed Date/Time: 06/17/20934 DD/ 5 TD/TT: - Medical Decision Making This is a 49-year-old female that presents with abdominal pain. Patient is stable and was examined by me. Labs obtained. UA obtained. CT of abdomen obtained and dictated by the radiologist. Patient is notified of the report with no questions noted by the patient. Vital signs are stable prior to discharge. Patient received medical treatment in the ED which patient stated symptoms has resovled and subsided. Was instructed note to operate any machinery due to possible drowsiness and stated someone will drive the patient home. A by mouth challenge has been obtained and patient tolerated well with no nausea vomiting. Patient was also instructed to Follow-up with a primary care doctor in 3-5 days or if symptoms worsen and continue return to emergency room as soon as possible. At time of discharge, the patient does not seem toxic or ill in appearance. No acute signs of distress noted. Patient agrees to discharge trini tment plan of care. No further questions noted by the patient. Critical care attestation.: If time is entered above; I have spent that time in minutes in the direct care of this critically ill patient, excluding procedure time. ED Disposition Clinical Impression: Diverticulitis, Abdominal wall hernia Cirrhosis of liver Qualifiers: Hepatic cirrhosis type: unspecified hepatic cirrhosis Ascites presence: without ascites Qualified Code(s): K74.60 - Unspecified cirrhosis of liver Cholelithiasis Qualifiers: Cholelithiasis location: gallbladder Cholecystitis presence: without cholecystitis Biliary obstruction: without biliary obstruction Qualified Code(s): K80.20 - Calculus of gallbladder without cholecystitis without obstruction Disposition: TO HOME OR SELFCARE Is pt being admited?: No Does the pt Need Aspirin: No Condition: Stable Instructions: Cholelithiasis, Hernia, Adult, Cirrhosis, Diverticulitis Additional Instructions: Follow-up with a primary care and manager vehicle doctor in 3-5 days or if symptoms worsen and continue return to emergency room as soon as possible. Prescriptions: Ciprofloxacin HCl [Ciprofloxacin TAB] 500 mg PO Q12HR #20 tab metroNIDAZOLE [Flagyl] 500 mg PO Q12HR #20 tab Naproxen 500 mg PO Q12H PRN #12 tablet PRN Reason: Pain , Severe (7-10) Ondansetron [Zofran Odt] 4 mg PO Q8HR PRN #20 tab.rapdis PRN Reason: Nausea Referrals: FREYA CHAUHAN MD [Primary Care Provider] - 3-5 Days NACHO YU MD [Staff Physician] - 3-5 Days [facility] [Provider Group] - 3-5 Days
--- NOTE | 2020-06-17 09:39 | Cat Scan Report ---
CT ABDOMEN AND PELVIS WITH CONTRAST INDICATION / CLINICAL INFORMATION: MAIN. Abdominal pain TECHNIQUE: Axial CT images were obtained through the abdomen and pelvis after IV contrast. All CT scans at this location are performed using CT dose reduction for ALARA by means of automated exposure control. COMPARISON: 04/02/2020. FINDINGS: LOWER CHEST: No significant abnormality. LIVER: Cirrhotic morphology of the liver is again noted. GALLBLADDER: Cholelithiasis without evidence of acute cholecystitis. BILE DUCTS: No significant abnormality. PANCREAS: No significant abnormality. SPLEEN: Persistent splenomegaly. ADRENALS: No significant abnormality. RIGHT KIDNEY / URETER: No significant abnormality. LEFT KIDNEY / URETER: No significant abnormality. STOMACH / SMALL BOWEL: Concentric thickening of small bowel loops in the left upper abdomen have not significantly changed since 04/02/2020. No significant perienteric fat stranding. COLON: Colonic diverticulosis is again noted with increased mural thickening and pericolonic fat stra nding noted of the sigmoid colon. There is persistent edema noted within the wall of the cecum. APPENDIX: No significant abnormality. PERITONEUM: Persistent small volume peritoneal ascites No free air. No complex fluid collection. LYMPH NODES: Reactive appearing lymph nodes in the mesentery and retroperitoneum, the largest measuri ng 1.2 cm in short axis (series 2 image 89) have not significantly changed prior exam. AORTA / ARTERIES: Moderate atherosclerotic calcification without acute abnormality. IVC / VEINS: Sequela of portal hypertension with collaterals in the anterior abdomen. Hepatosplenic s hunting.. URINARY BLADDER: No significant abnormality. REPRODUCTIVE ORGANS: No significant abnormality. ADDITIONAL FINDINGS: Fat-containing ventral abdominal wall hernia is stable since prior exam. SKELETAL SYSTEM: Multilevel degenerative changes are noted of the spine most prominent at L5-S1. No a ggressive osseous lesions. Diffuse osteopenia. IMPRESSION: 1. Interval development of a mild uncomplicated sigmoid diverticulitis. 2. Cholelithiasis without acute cholecystitis, unchanged from prior exam. 3. Cirrhotic liver morphology with sequela of portal hypertension unchanged from prior exam. There is persistent small volume ascites. 4. Unchanged fat-containing ventral abdominal wall hernia. Signer Name: Kade Kwon MD Signed: 06/17/2020 9:35 AM Workstation Name: [id number]
[2020-06-17] MEDS ORDERED: metroNIDAZOLE/NS 500 MG/100 ML 500 MG/100 ML BAG IV ONE (09:43)
[2020-06-17 12:17] VITALS: BP 112/59
== END 2020-06-17 12:31 | disposition home or self-care (01) ==
LOC: ED 03:54
DX: K80.20 Calculus of gallbladder without cholecystitis without obstruction (principal); K74.60 Unspecified cirrhosis of liver; K57.90 Diverticulosis of intestine, part unspecified, without perforation or abscess without bleeding; K43.9 Ventral hernia without obstruction or gangrene; I10 Essential (primary) hypertension; M19.91 Primary osteoarthritis, unspecified site; F41.9 Anxiety disorder, unspecified; Z90.49 Acquired absence of other specified parts of digestive tract; Z98.890 Other specified postprocedural states; Z79.1 Long term (current) use of non-steroidal anti-inflammatories (NSAID); Z79.2 Long term (current) use of antibiotics; Z79.899 Other long term (current) drug therapy; Z88.8 Allergy status to other drugs, medicaments and biological substances
CPT/HCPCS: 36415; 74177; 80053; 81001; 83690; 83735; 85025; 96361; 96365; 96366; 96368; 96375; 96376; 99284; J1170; J1956; J2405; J7030; Q9967

== ENCOUNTER 2020-06-25 11:04 | Emergency (ER) | payer MEDICAID | END 2020-06-25 11:35 | disposition left against medical advice (07) | LOC: ED 11:04 | DX: R53.1 Weakness (principal); Z53.21 Procedure and treatment not carried out due to patient leaving prior to being seen by health care provider ==

== ENCOUNTER 2020-06-27 06:53 | Emergency (ER) | payer MEDICAID ==
[2020-06-27 07:15] VITALS: BP 126/80
[2020-06-27] MEDS ORDERED: KETOROLAC 30 MG/1 ML INJ IM ONE (10:43)
[2020-06-27] MEDS ORDERED: dexAMETHasone 4 MG/ML VIAL IM ONE (10:43)
--- NOTE | 2020-06-27 10:46 | Emergency Department Report ---
ED General Adult HPI - General Chief complaint: Pain General Stated complaint: HEADACHES, BODY ACHES, AND LEFT LEG SWELLING Time Seen by Provider: 06/27/20 10:17 Source: patient Mode of arrival: Ambulatory Limitations: No Limitations - History of Present Illness Initial comments: The patient was evaluated in the emergency department for symptoms described in the history of present illness. He/she was evaluated in the context of the global COVID-19 pandemic, which necessitated consideration that the patient might be at risk for infection with the virus that causes COVID-19. Institutional protocols and algorithms that pertain to the evaluation of patients at risk for COVID-19 are in a state of rapid change based on information released by regulatory bodies including the CDC and federal and state organizations. These policies and algorithms were followed during the patient's care in the emergency department. Please note that these policies, procedures and recommendations changed on a rapid basis. 50-year-old female presents to the emergency room complaining of pain all over in her right hip is burning complains of both ears with draining and that her psoriasis in her lower legs are flaring up. Patient reports that she did not follow-up with primary care provider as she was instructed to last month.. Patient has a past medical history of cirrhosis of the liver, anxiety depression, psoriasis, chronic pain and hypertension. Location: lower extremity Severity scale (0 -10): 8 Quality: burning, aching Consistency: constant Improves with: none Worsens with: none Associated Symptoms: denies other symptoms, rash. denies: fever/chills, nausea/vomiting Treatments Prior to Arrival: none - Related Data Home Medications Medication Instructions Recorded Confirmed Last Taken Acetaminophen [Tylenol] 650 mg PO BID PRN 05/23/20 05/23/20 1 Day Ago ~05/22/20 Ibuprofen [Motrin 200 MG tab] 200 mg PO Q6H PRN 05/23/20 05/23/20 05/23/20 08:00 Previous Rx's Medication Instructions Recorded Last Taken Type Acetaminophen [Acetaminophen TAB] 650 mg PO BID PRN tablet 05/26/20 Unknown Rx Hydrocortisone 1% [Hydrocortisone 1 applic TP Q8H PRN #7 tube 05/26/20 Unknown Rx 1% CREAM] cephALEXin [Keflex] 500 mg PO Q6HR #40 capsule 05/26/20 Unknown Rx diphenhydrAMINE [Benadryl CAP] 25 mg PO Q6H PRN #20 capsule 05/26/20 Unknown Rx oxyCODONE /ACETAMINOPHEN [Percocet 1 tab PO Q6H PRN #60 tablet 05/26/20 Unknown Rx 5/325 mg] HYDROcodone/APAP 5-325 [[place] 1 each PO Q6HR PRN #12 tablet 05/31/20 Unknown Rx 5/325] cephALEXin [Keflex] 500 mg PO Q6HR #40 capsule 05/31/20 Unknown Rx Ciprofloxacin HCl [Ciprofloxacin 500 mg PO Q12HR #20 tab 06/17/20 Unknown Rx TAB] Naproxen 500 mg PO Q12H PRN #12 tablet 06/17/20 Unknown Rx Ondansetron [Zofran Odt] 4 mg PO Q8HR PRN #20 tab.rapdis 06/17/20 Unknown Rx metroNIDAZOLE [Flagyl] 500 mg PO Q12HR #20 tab 06/17/20 Unknown Rx Allergies Allergy/AdvReac Type Severity Reaction Status Date / Time No Known Allergies Allergy Unverified 06/27/20 07:10 ED Review of Systems ROS: Stated complaint: HEADACHES, BODY ACHES, AND LEFT LEG SWELLING Other details as noted in HPI Comment: All other systems reviewed and negative ED Past Medical Hx - Past Medical History Hx Hypertension: Yes Hx Liver Disease: Yes (CIRRHOSIS) Hx Renal Disease: No Hx Sickle Cell Disease: No Hx Arthritis: Yes (knees arms hands) Hx Headaches / Migraines: No Hx Seizures: No Hx Kidney Stones: No Hx Psychiatric Treatment: Yes (anxiety, DEPRESSION) Hx Asthma: No Hx COPD: No Hx Tuberculosis: No Hx Dementia: No Hx HIV: No Additional medical history: psoriasis. Chronic Pain - Surgical History Hx Appendectomy: Yes Additional Surgical History: - Social History Smoking Status: Never Smoker Substance Use Type: None - Medications Home Medications: Home Medications Medication Instructions Recorded Confirmed Last Taken Type Acetaminophen [Tylenol] 650 mg PO BID PRN 05/23/20 05/23/20 1 Day Ago History ~05/22/20 Ibuprofen [Motrin 200 MG tab] 200 mg PO Q6H PRN 05/23/20 05/23/20 05/23/20 08:00 History Acetaminophen [Acetaminophen TAB] 650 mg PO BID PRN tablet 05/26/20 Unknown Rx Hydrocortisone 1% [Hydrocortisone 1 applic TP Q8H PRN #7 tube 05/26/20 Unknown Rx 1% CREAM] cephALEXin [Keflex] 500 mg PO Q6HR #40 capsule 05/26/20 Unknown Rx diphenhydrAMINE [Benadryl CAP] 25 mg PO Q6H PRN #20 capsule 05/26/20 Unknown Rx oxyCODONE /ACETAMINOPHEN [Percocet 1 tab PO Q6H PRN #60 tablet 05/26/20 Unknown Rx 5/325 mg] HYDROcodone/APAP 5-325 [[place] 1 each PO Q6HR PRN #12 tablet 05/31/20 Unknown Rx 5/325] cephALEXin [Keflex] 500 mg PO Q6HR #40 capsule 05/31/20 Unknown Rx Ciprofloxacin HCl [Ciprofloxacin 500 mg PO Q12HR #20 tab 06/17/20 Unknown Rx TAB] Naproxen 500 mg PO Q12H PRN #12 tablet 06/17/20 Unknown Rx Ondansetron [Zofran Odt] 4 mg PO Q8HR PRN #20 tab.rapdis 06/17/20 Unknown Rx metroNIDAZOLE [Flagyl] 500 mg PO Q12HR #20 tab 06/17/20 Unknown Rx ED Physical Exam - General Limitations: No Limitations General appearance: alert, in no apparent distress - Head Head exam: Present: atraumatic, normocephalic - Eye Eye exam: Present: normal appearance - ENT ENT exam: Present: mucous membranes moist - Expanded ENT Exam Expanded TM/Canal exam: Canal Discharge: Right TM, Left TM, Canal Tenderness: Right TM, Left TM - Neck Neck exam: Present: normal inspection, full ROM - Respiratory Respiratory exam: Present: normal lung sounds bilaterally. Absent: accessory muscle use - Cardiovascular Cardiovascular Exam: Present: regular rate, normal rhythm. Absent: systolic murmur, diastolic murmur, rubs, gallop - Extremities Exam Extremities exam: Present: full ROM, pedal edema, other (Pruritic rash bilateral lower extremities) - Back Exam Back exam: Present: normal inspection, full ROM - Neurological Exam Neurological exam: Present: alert, oriented X3 - Psychiatric Psychiatric exam: Present: depressed, anxious - Skin Skin exam: Present: warm, dry, intact, rash, erythema (Bilateral lower extremities) - Expanded Skin Exam Expanded Description of rash: Present: erythematous, swelling, crusting ED Course Vital Signs 12/09/20 12/09/20 07:14 08:41 Temperature 97.9 F Pulse Rate 100 H Respiratory 22 18 Rate Blood Pressure 126/80 O2 Sat by Pulse 99 99 Oximetry ED Medical Decision Making - Medical Decision Making 50-year-old female presents to the emergency room complaining of pain all over in her right hip is burning complains of both ears are draining and that her psoriasis in her lower legs are flaring up. Patient reports that she did not follow-up with primary care provider as she was instructed to last month.. Patient has a past medical history of cirrhosis of the liver, anxiety depression, states psoriasis chronic pain and hypertension. Patient will be given an dexamethasone 8 mg gram injection as well as Toradol injection. Ciprodex placed in ear with ear wick. Patient is to return in 3 days to have removed. Critical care attestation.: If time is entered above; I have spent that time in minutes in the direct care of this critically ill patient, excluding procedure time. ED Disposition Clinical Impression: Psoriasis, Bilateral otitis externa Disposition: TO HOME OR SELFCARE Is pt being admited?: No Does the pt Need Aspirin: No Condition: Stable Instructions: Ear Drops, Adult, [id number], Otitis Externa, [id number], Psoriasis, [id number] Additional Instructions: Return in 3 days to have ear bobbi removed. Continue with administering drops to the ears twice a day for drops. Referrals: PRIMARY CAREMD [Primary Care Provider] - 3-[address] [facility] [Provider Group] - 3-5 Days
[2020-06-27] MEDS ORDERED: CIPROFLOXACIN/DEXAMETH OTIC SUSP 7.5ML AU ONE (11:00)
== END 2020-06-27 12:10 | disposition home or self-care (01) ==
LOC: ED 06:53
DX: H60.93 Unspecified otitis externa, bilateral (principal); L40.9 Psoriasis, unspecified; I10 Essential (primary) hypertension; M19.90 Unspecified osteoarthritis, unspecified site; F41.9 Anxiety disorder, unspecified; F32.9 Major depressive disorder, single episode, unspecified; Z79.899 Other long term (current) drug therapy; Z98.890 Other specified postprocedural states
CPT/HCPCS: 96372; 99282; J1100; J1885

== ENCOUNTER 2020-06-29 15:38 | Emergency (ER) | payer MEDICAID ==
[2020-06-29] MEDS ORDERED: ONDANSETRON 4 MG/2 ML INJ IV ONE (16:47)
[2020-06-29] MEDS ORDERED: HYDROmorphone 1 MG/1 ML INJ IV ONE ×4 (16:47→19:22)
[2020-06-29] MEDS ORDERED: LACTATED RINGERS 1,000 ML IV ONE ×3 (16:57→21:05)
--- NOTE | 2020-06-29 17:33 | Emergency Department Report ---
- General Chief complaint: Skin Rash Stated complaint: BODY RASH Time Seen by Provider: 06/29/20 16:27 Source: patient, EMS, old records reviewed Mode of arrival: Stretcher Limitations: Physical Limitation - History of Present Illness Initial comments: 50-year-old female with a past medical history of chronic pain, psoriasis, alcohol induced liver cirrhosis, anxiety, depression, and hypertension presents to the hospital with complaints of generalized rash and 10/10 burning pain since last night. Patient started her recently prescribed antibiotics last night prior to symptom onset. Patient was apparently prescribed Cipro and Flagyl on June [address] findings of diverticulitis and cholelithiasis. Patient did not fill and start taking the medication until last night. She states she was taking a previously prescribed antibiotic prior. As per medical record review patient has had a history of poor follow-up with frequent ER and visits and hospitalizations. On May 23 until the she was admitted for left leg cellulitis and sepsis and was discharged on Keflex and hydrocortisone cream (DVT study negative at that time), on ER visit May 31 she presented to the hospital with continued left leg pain and swelling as well as shortness of breath. She had a CT angiogram that was negative at that time and had not yet filled (or received) her prescribed Keflex at previous discharge. She was discharged on additional Keflex 500 mg every 6h x40 tablets. On June [address] abdomen and pelvis for abdominal pain and was diagnosed with diverticulitis, ventral abdominal wall hernia, and cholelithiasis and prescribed Cipro and Flagyl. On June 27 she was here with complaints of generalized pain, burning to right hip, and burning to both ears and drainage. She was given dexamethasone 8 mg IM, Toradol IM, and has Ciprodex placed with a ear wick with instructions to return in 3 days to have it removed. Patient denies fever, nausea, or vomiting. Patient has a history of narcotic dependence and requesting immediate pain relief. Patient complains of generalized burning pain including her vaginal and rectal area secondary to rash - Related Data Home Medications Medication Instructions Recorded Confirmed Last Taken Acetaminophen [Tylenol] 650 mg PO BID PRN 05/23/20 05/23/20 1 Day Ago ~05/22/20 Ibuprofen [Motrin 200 MG tab] 200 mg PO Q6H PRN 05/23/20 05/23/20 05/23/20 08:00 Previous Rx's Medication Instructions Recorded Last Taken Type Acetaminophen [Acetaminophen TAB] 650 mg PO BID PRN tablet 05/26/20 Unknown Rx Hydrocortisone 1% [Hydrocortisone 1 applic TP Q8H PRN #7 tube 05/26/20 Unknown Rx 1% CREAM] cephALEXin [Keflex] 500 mg PO Q6HR #40 capsule 05/26/20 Unknown Rx diphenhydrAMINE [Benadryl CAP] 25 mg PO Q6H PRN #20 capsule 05/26/20 Unknown Rx oxyCODONE /ACETAMINOPHEN [Percocet 1 tab PO Q6H PRN #60 tablet 05/26/20 Unknown Rx 5/325 mg] HYDROcodone/APAP 5-325 [[place] 1 each PO Q6HR PRN #12 tablet 05/31/20 Unknown Rx 5/325] cephALEXin [Keflex] 500 mg PO Q6HR #40 capsule 05/31/20 Unknown Rx Ciprofloxacin HCl [Ciprofloxacin 500 mg PO Q12HR #20 tab 06/17/20 Unknown Rx TAB] Naproxen 500 mg PO Q12H PRN #12 tablet 06/17/20 Unknown Rx Ondansetron [Zofran Odt] 4 mg PO Q8HR PRN #20 tab.rapdis 06/17/20 Unknown Rx metroNIDAZOLE [Flagyl] 500 mg PO Q12HR #20 tab 06/17/20 Unknown Rx Allergies Allergy/AdvReac Type Severity Reaction Status Date / Time No Known Allergies Allergy Unverified 06/27/20 07:10 Abscess Boil HPI - HPI Chief Complaint: Skin Rash Stated Complaint: BODY RASH Time Seen by Provider: 06/29/20 16:27 Home Medications: Home Medications Medication Instructions Recorded Confirmed Last Taken Acetaminophen [Tylenol] 650 mg PO BID PRN 05/23/20 05/23/20 1 Day Ago ~05/22/20 Ibuprofen [Motrin 200 MG tab] 200 mg PO Q6H PRN 05/23/20 05/23/20 05/23/20 08:00 Previous Rx's Medication Instructions Recorded Last Taken Type Acetaminophen [Acetaminophen TAB] 650 mg PO BID PRN tablet 05/26/20 Unknown Rx Hydrocortisone 1% [Hydrocortisone 1 applic TP Q8H PRN #7 tube 05/26/20 Unknown Rx 1% CREAM] cephALEXin [Keflex] 500 mg PO Q6HR #40 capsule 05/26/20 Unknown Rx diphenhydrAMINE [Benadryl CAP] 25 mg PO Q6H PRN #20 capsule 05/26/20 Unknown Rx oxyCODONE /ACETAMINOPHEN [Percocet 1 tab PO Q6H PRN #60 tablet 05/26/20 Unknown Rx 5/325 mg] HYDROcodone/APAP 5-325 [[place] 1 each PO Q6HR PRN #12 tablet 05/31/20 Unknown Rx 5/325] cephALEXin [Keflex] 500 mg PO Q6HR #40 capsule 05/31/20 Unknown Rx Ciprofloxacin HCl [Ciprofloxacin 500 mg PO Q12HR #20 tab 06/17/20 Unknown Rx TAB] Naproxen 500 mg PO Q12H PRN #12 tablet 06/17/20 Unknown Rx Ondansetron [Zofran Odt] 4 mg PO Q8HR PRN #20 tab.rapdis 06/17/20 Unknown Rx metroNIDAZOLE [Flagyl] 500 mg PO Q12HR #20 tab 06/17/20 Unknown Rx Allergies/Adverse Reactions: Allergies Allergy/AdvReac Type Severity Reaction Status Date / Time No Known Allergies Allergy Unverified 06/27/20 07:10 ED Review of Systems ROS: Stated complaint: BODY RASH Other details as noted in HPI Comment: All other systems reviewed and negative ED Past Medical Hx - Past Medical History Hx Hypertension: Yes Hx Liver Disease: Yes (CIRRHOSIS) Hx Renal Disease: No Hx Sickle Cell Disease: No Hx Arthritis: Yes (knees arms hands) Hx Headaches / Migraines: No Hx Seizures: No Hx Kidney Stones: No Hx Psychiatric Treatment: Yes (anxiety, DEPRESSION) Hx Asthma: No Hx COPD: No Hx Tuberculosis: No Hx Dementia: No Hx HIV: No Additional medical history: psoriasis. Chronic Pain - Surgical History Hx Appendectomy: Yes Additional Surgical History: - Social History Smoking Status: Former Smoker Substance Use Type: None - Medications Home Medications: Home Medications Medication Instructions Recorded Confirmed Last Taken Type Acetaminophen [Tylenol] 650 mg PO BID PRN 05/23/20 05/23/20 1 Day Ago History ~05/22/20 Ibuprofen [Motrin 200 MG tab] 200 mg PO Q6H PRN 05/23/20 05/23/20 05/23/20 08:00 History Acetaminophen [Acetaminophen TAB] 650 mg PO BID PRN tablet 05/26/20 Unknown Rx Hydrocortisone 1% [Hydrocortisone 1 applic TP Q8H PRN #7 tube 05/26/20 Unknown Rx 1% CREAM] cephALEXin [Keflex] 500 mg PO Q6HR #40 capsule 05/26/20 Unknown Rx diphenhydrAMINE [Benadryl CAP] 25 mg PO Q6H PRN #20 capsule 05/26/20 Unknown Rx oxyCODONE /ACETAMINOPHEN [Percocet 1 tab PO Q6H PRN #60 tablet 05/26/20 Unknown Rx 5/325 mg] HYDROcodone/APAP 5-325 [[place] 1 each PO Q6HR PRN #12 tablet 05/31/20 Unknown Rx 5/325] cephALEXin [Keflex] 500 mg PO Q6HR #40 capsule 05/31/20 Unknown Rx Ciprofloxacin HCl [Ciprofloxacin 500 mg PO Q12HR #20 tab 06/17/20 Unknown Rx TAB] Naproxen 500 mg PO Q12H PRN #12 tablet 06/17/20 Unknown Rx Ondansetron [Zofran Odt] 4 mg PO Q8HR PRN #20 tab.rapdis 06/17/20 Unknown Rx metroNIDAZOLE [Flagyl] 500 mg PO Q12HR #20 tab 06/17/20 Unknown Rx ED Physical Exam - General Limitations: Physical Limitation - Other Other exam information: General: Distress secondary to pain Head: Atraumatic Eyes: normal appearance ENT: Moist mucous membranes, no oral lesions, no lip lesions Neck: Normal appearance, no midline tenderness Chest: Clear to auscultation bilaterally CV: Regular rate and rhythm Abdomen: Soft, normal bowel sounds, nontender, nondistended, no rebound or guarding Back: Normal inspection Extremity: Normal inspection, full range of motion Neuro: Alert O x 3, no facial asymmetry, speech clear, no gross motor sensory deficit Psych: Appropriate behavior Skin: Generalized red/erythematous rash macular rash with areas of skin sloughing. Sparing face. Psoriatic scaly rash noted to lower extremities ED Course Vital Signs 06/29/20 06/29/20 06/29/20 15:54 16:01 16:05 Temperature 97.3 F L Pulse Rate 105 H 108 H 111 H Respiratory 25 H 16 28 H Rate Blood Pressure Blood Pressure 128/68 [Left] O2 Sat by Pulse 100 100 99 Oximetry 06/29/20 06/29/20 06/29/20 16:15 16:30 16:45 Temperature Pulse Rate 108 H 109 H 115 H Respiratory 20 24 12 Rate Blood Pressure 128/68 123/62 123/62 Blood Pressure [Left] O2 Sat by Pulse 100 99 98 Oximetry 06/29/20 06/29/20 06/29/20 17:00 17:15 17:30 Temperature Pulse Rate 113 H 117 H 112 H Respiratory 18 22 26 H Rate Blood Pressure 126/79 126/79 127/80 Blood Pressure [Left] O2 Sat by Pulse 98 98 Oximetry 06/29/20 06/29/20 06/29/20 17:45 18:00 18:15 Temperature Pulse Rate 118 H 111 H 118 H Respiratory 25 H 23 30 H Rate Blood Pressure 126/79 131/81 131/81 Blood Pressure [Left] O2 Sat by Pulse 100 98 100 Oximetry 06/29/20 06/29/20 06/29/20 18:30 18:45 19:01 Temperature Pulse Rate 108 H 113 H 110 H Respiratory 20 16 22 Rate Blood Pressure 136/103 131/81 143/93 Blood Pressure [Left] O2 Sat by Pulse 96 100 73 L Oximetry 06/29/20 19:34 Temperature Pulse Rate Respiratory 18 Rate Blood Pressure Blood Pressure [Left] O2 Sat by Pulse Oximetry - Consultations Consultation #1: 06/29/20 19:[address] Davila burn attending who agrees to accept patient however, request CT abdomen pelvis to confirm resolution of diverticulitis as patient was noncompliant with treatment. 06/29/20 20:44 Dr. Davila has officially accepted patient since CT shows resolution of diverticulitis ED Medical Decision Making - Lab Data Result diagrams: 06/29/20 17:28 06/29/20 17:28 Lab Results 06/29/20 06/29/20 06/29/20 Range/Units 17:28 17:28 17:28 WBC 14.3 H (4.5-11.0) K/mm3 RBC 3.64 L (3.65-5.03) M/mm3 Hgb 9.7 L (10.1-14.3) gm/dl Hct 31.1 (30.3-42.9) % MCV 85 (79-97) fl MCH 27 L (28-32) pg MCHC 31 (30-34) % RDW 24.6 H (13.2-15.2) % Plt Count 80 L (140-440) K/mm3 Lymph % (Auto) 6.9 L (13.4-35.0) % [place] % (Auto) 7.0 (0.0-7.3) % Eos % (Auto) 1.2 (0.0-4.3) % Baso % (Auto) 0.5 (0.0-1.8) % Lymph # (Auto) 1.0 L (1.2-5.4) K/mm3 [place] # (Auto) 1.0 H (0.0-0.8) K/mm3 Eos # (Auto) 0.2 (0.0-0.4) K/mm3 Baso # (Auto) 0.1 (0.0-0.1) K/mm3 Seg Neutrophils % 84.4 H (40.0-70.0) % Seg Neutrophils # 12.0 H (1.8-7.7) K/mm3 Sodium (137-145) mmol/L Potassium (3.6-5.0) mmol/L Chloride (98-107) mmol/L Carbon Dioxide (22-30) mmol/L Anion Gap mmol/L BUN (7-17) mg/dL Creatinine (0.6-1.2) mg/dL Estimated GFR ml/min BUN/Creatinine Ratio % Glucose (65-100) mg/dL Lactic Acid 2.70 H* (0.7-2.0) mmol/L Calcium (8.4-10.2) mg/dL Magnesium 1.30 L (1.7-2.3) mg/dL Total Bilirubin (0.1-1.2) mg/dL AST (5-40) units/L ALT (7-56) units/L Alkaline Phosphatase (35-129) units/L Total Protein (6.3-8.2) g/dL Albumin (3.9-5) g/dL Albumin/Globulin Ratio % 06/29/ Range/Units 17:28 WBC (4.5-11.0) K/mm3 RBC (3.65-5.03) M/mm3 Hgb (10.1-14.3) gm/dl Hct (30.3-42.9) % MCV (79-97) fl MCH (28-32) pg MCHC (30-34) % RDW (13.2-15.2) % Plt Count (140-440) K/mm3 Lymph % (Auto) (13.4-35.0) % [place] % (Auto) (0.0-7.3) % Eos % (Auto) (0.0-4.3) % Baso % (Auto) (0.0-1.8) % Lymph # (Auto) (1.2-5.4) K/mm3 [place] # (Auto) (0.0-0.8) K/mm3 Eos # (Auto) (0.0-0.4) K/mm3 Baso # (Auto) (0.0-0.1) K/mm3 Seg Neutrophils % (40.0-70.0) % Seg Neutrophils # (1.8-7.7) K/mm3 Sodium 133 L (137-145) mmol/L Potassium 4.1 (3.6-5.0) mmol/L Chloride 105.9 (98-107) mmol/L Carbon Dioxide 18 L (22-30) mmol/L Anion Gap 13 mmol/L BUN 9 (7-17) mg/dL Creatinine 0.5 L (0.6-1.2) mg/dL Estimated GFR > 60 ml/min BUN/Creatinine Ratio 18 % Glucose 98 (65-100) mg/dL Lactic Acid (0.7-2.0) mmol/L Calcium 7.8 L (8.4-10.2) mg/dL Magnesium (1.7-2.3) mg/dL Total Bilirubin 1.50 H (0.1-1.2) mg/dL AST 40 (5-40) units/L ALT 12 (7-56) units/L Alkaline Phosphatase 180 H (35-129) units/L Total Protein 7.0 (6.3-8.2) g/dL Albumin 2.3 L (3.9-5) g/dL Albumin/Globulin Ratio 0.5 % - Radiology Data Radiology results: report reviewed CT ABDOMEN AND PELVIS WITH CONTRAST INDICATION / CLINICAL INFORMATION: recent diverticulitis. TECHNIQUE: Axial CT images were obtained through the abdomen and pelvis after 100 mL Omnipaque [address] scans at this location are performed using CT dose reduction for ALARA by means of automated exposure control. COMPARISON: CT dated 06/17/20 FINDINGS: LOWER CHEST: No significant abnormality. LIVER: Liver is enlarged, nodular, and heterogeneous characteristic of hepatic cirrhosis. No change. No definite focal mass lesion on this single phase CT. Recanalized paraumbilical vein. GALLBLADDER: Distended with focal tiny calcified gallstones, unchanged. BILE DUCTS: No significant abnormality. PANCREAS: No significant abnormality. SPLEEN: Splenomegaly without change. ADRENALS: No significant abnormality. RIGHT KIDNEY / URETER: No significant abnormality. LEFT KIDNEY / URETER: No significant abnormality. STOMACH / SMALL BOWEL: No significant abnormality. COLON: Interval resolution of sigmoid diverticulitis. No extraluminal gas or abscess. APPENDIX: Not visualized. PERITONEUM: No free fluid. No free air. No fluid collection. LYMPH NODES: No significant adenopathy. AORTA / ARTERIES: Mild atherosclerotic calcification without acute abnormality. IVC / VEINS: Retroaortic left renal vein. URINARY BLADDER: No significant abnormality. REPRODUCTIVE ORGANS: No significant abnormality. ADDITIONAL FINDINGS: Fat-containing lower abdominal wall ventral hernia containing prominent venous collaterals. No change. SKELETAL SYSTEM: No significant abnormality. IMPRESSION: 1. Interval resolution of sigmoid diverticulitis. 2. No change in appearance of hepatic cirrhosis and portal venous hypertension. - Medical Decision Making 50-year-old female complains of generalized rash with skin sloughing suggestive of TEN versus Kim-Laureano's versus some other exfoliative dermatitis including exfoliative dermatitis due to psorasis. This includes most of her skin surface and appears to be severe therefore patient will be transferred to [facility] burn service for appropriate treatment to include speciality evaluation not available at [facility]. In the ED patient was treated with lactated Ringer's, Dilaudid, Zofran, fentanyl, and IV Benadryl for hydration and for pain relief. Patient has history of recent ER visits here and hospitalizations which I have printed to include and transfer paperwork. CT confirms that patient's diverticulitis has resolved. Mild hypomagnesemia was treated with IV magnesium 2 g patient. Patient has chronic thrombocytopenia likely secondary to cirrhosis. Patient was never hypoxic in the ED and hypoxic O2 saturation documented is incorrect Critical Care Time: Yes Critical care time in (mins) excluding proc time.: 35 Critical care attestation.: If time is entered above; I have spent that time in minutes in the direct care of this critically ill patient, excluding procedure time. ED Disposition Clinical Impression: Hypomagnesemia, History of alcohol abuse, Cirrhosis of liver, Exfoliative dermatitis, Thrombocytopenia, TEN (toxic epidermal necrolysis), Intractable pain Disposition: DC/TX-70 ANOTHER TYPE HLTHCARE Is pt being admited?: No Condition: Stable Referrals: PRIMARY CARE, [Primary Care Provider] - 3-5 Days Time of Disposition: 20:50 (Dr Davila accept pt, transfer to [facility])
[2020-06-29 18:17] LABS: Basophils # (Auto) 0.1 K/mm3 (0.0-0.1); Basophils % (Auto) 0.5 % (0.0-1.8); Eosinophils # (Auto) 0.2 K/mm3 (0.0-0.4); Eosinophils % (Auto) 1.2 % (0.0-4.3); Hematocrit 31.1 % (30.3-42.9); Hemoglobin 9.7 gm/dl (10.1-14.3); Lymphocytes % (Auto) 6.9 % (13.4-35.0); Mean Corpuscular HGB Conc 31 % (30-34); Mean Corpuscular Volume 85 fl (79-97); Red Blood Count 3.64 M/mm3 (3.65-5.03)
[2020-06-29 18:19] LABS: Alanine Aminotransferase 12 units/L (7-56); Albumin 2.3 g/dL (3.9-5); Blood Urea Nitrogen 9 mg/dL (7-17); Calcium 7.8 mg/dL (8.4-10.2); Hemolysis Index 30
[2020-06-29 18:20] LABS: BUN/Creatinine Ratio 18
[2020-06-29] MEDS ORDERED: MAGNESIUM SULFATE 2 GM/50 ML BAG IV ONE (18:21)
[2020-06-29] MEDS ORDERED: diphenhydrAMINE 50 MG/ML VIAL IV ONE (18:25)
[2020-06-29 18:29] LABS: Platelet Count 80 K/mm3 (140-440); Red Cell Distribution Width 24.6 % (13.2-15.2)
--- NOTE | 2020-06-29 20:31 | Cat Scan Report ---
CT ABDOMEN AND PELVIS WITH CONTRAST INDICATION / CLINICAL INFORMATION: recent diverticulitis. TECHNIQUE: Axial CT images were obtained through the abdomen and pelvis after 100 mL Omnipaque [address] scans at this location are performed using CT dose reduction for ALARA by means of automated exposure control. COMPARISON: CT dated 06/17/20 FINDINGS: LOWER CHEST: No significant abnormality. LIVER: Liver is enlarged, nodular, and heterogeneous characteristic of hepatic cirrhosis. No change. No definite focal mass lesion on this single phase CT. Recanalized paraumbilical vein. GALLBLADDER: Distended with focal tiny calcified gallstones, unchanged. BILE DUCTS: No significant abnormality. PANCREAS: No significant abnormality. SPLEEN: Splenomegaly without change. ADRENALS: No significant abnormality. RIGHT KIDNEY / URETER: No significant abnormality. LEFT KIDNEY / URETER: No significant abnormality. STOMACH / SMALL BOWEL: No significant abnormality. COLON: Interval resolution of sigmoid diverticulitis. No extraluminal gas or abscess. APPENDIX: Not visualized. PERITONEUM: No free fluid. No free air. No fluid collection. LYMPH NODES: No significant adenopathy. AORTA / ARTERIES: Mild atherosclerotic calcification without acute abnormality. IVC / VEINS: Retroaortic left renal vein. URINARY BLADDER: No significant abnormality. REPRODUCTIVE ORGANS: No significant abnormality. ADDITIONAL FINDINGS: Fat-containing lower abdominal wall ventral hernia containing prominent venous c ollaterals. No change. SKELETAL SYSTEM: No significant abnormality. IMPRESSION: 1. Interval resolution of sigmoid diverticulitis. 2. No change in appearance of hepatic cirrhosis and portal venous hypertension. Signer Name: Salome Solorio MD Signed: 06/29/2020 8:26 PM Workstation Name: [id number]
[2020-06-29] MEDS ORDERED: fentaNYL 100 MCG/2 ML INJ IV ONE ×3 (21:02→23:05)
[2020-06-29 21:30] VITALS: BP 150/87
== END 2020-06-29 23:05 | disposition other institution (70) ==
LOC: ED 15:38
DX: E83.42 Hypomagnesemia (principal); K74.60 Unspecified cirrhosis of liver; L26 Exfoliative dermatitis; D69.6 Thrombocytopenia, unspecified; L51.2 Toxic epidermal necrolysis [Lyell]; I10 Essential (primary) hypertension; M19.91 Primary osteoarthritis, unspecified site; F32.9 Major depressive disorder, single episode, unspecified; F41.9 Anxiety disorder, unspecified; Z98.890 Other specified postprocedural states; Z87.891 Personal history of nicotine dependence; Z79.1 Long term (current) use of non-steroidal anti-inflammatories (NSAID); Z79.2 Long term (current) use of antibiotics; Z79.899 Other long term (current) drug therapy
CPT/HCPCS: 36415; 74177; 80053; 82140; 83735; 85025; 87040; 96361; 96365; 96375; 96376; 99285; J1170; J1200; J2405; J3010; J3475; J7120; Q9967

== ENCOUNTER 2020-10-13 22:56 | Emergency (ER) | payer MEDICAID | END 2020-10-13 23:15 | disposition left against medical advice (07) | LOC: ED 22:56 | DX: Z53.21 Procedure and treatment not carried out due to patient leaving prior to being seen by health care provider (principal) ==

== ENCOUNTER 2020-10-14 01:36 | Emergency (ER) | payer MEDICAID ==
[2020-10-14 04:25] LABS: Basophils # (Auto) 0.1 K/mm3 (0.0-0.1); Basophils % (Auto) 1.8 % (0.0-1.8); Eosinophils # (Auto) 0.1 K/mm3 (0.0-0.4); Eosinophils % (Auto) 2.3 % (0.0-4.3); Hematocrit 30.6 % (30.3-42.9); Hemoglobin 9.5 gm/dl (10.1-14.3); Lymphocytes # (Auto) 1.4 K/mm3 (1.2-5.4); Lymphocytes % (Auto) 23.2 % (13.4-35.0); Mean Corpuscular HGB Conc 31 % (30-34); Mean Corpuscular Volume 77 fl (79-97); Monocytes # (Auto) 0.5 K/mm3 (0.0-0.8); Platelet Count 198 K/mm3 (140-440)
[2020-10-14 04:48] LABS: Alanine Aminotransferase 14 units/L (7-56); Albumin 2.8 g/dL (3.9-5); Blood Urea Nitrogen 3 mg/dL (7-17); Calcium 7.3 mg/dL (8.4-10.2); Hemolysis Index 1
[2020-10-14 05:01] LABS: BUN/Creatinine Ratio 8; Red Cell Distribution Width 22.4 % (13.2-15.2)
[2020-10-14] MEDS ORDERED: oxyCODONE /ACETAMINOPHEN 5-325MG TAB PO ONE (05:17)
[2020-10-14 05:53] VITALS: BP 101/73
--- NOTE | 2020-10-14 06:44 | Emergency Department Report ---
HPI - General Chief Complaint: Extremity Injury, Lower Time Seen by Provider: 10/14/20 06:22 - HPI HPI: Room 20 The patient is a 50-year-old female present with a chief complaint of lower extremity redness and pain. Patient has history of psoriasis states she has not seen a multimedia developer recently. Patient states for the past 2 weeks she has had painful scaling and erythema bilateral lower extremities and right lower back/buttocks. Patient gives her pain a score of 10/10. Patient admits to a fever last night. ED Past Medical Hx - Past Medical History Previous Medical History?: Yes Hx Hypertension: Yes Hx Liver Disease: Yes (CIRRHOSIS) Hx Arthritis: Yes (knees arms hands) Hx Psychiatric Treatment: Yes (anxiety, DEPRESSION) Additional medical history: psoriasis. Chronic Pain - Surgical History Past Surgical History?: Yes Hx Appendectomy: Yes Additional Surgical History: - Family History Family history: no significant - Social History Smoking Status: Former Smoker (None x3 years) Substance Use Type: Alcohol (None x2.5 years) - Medications Home Medications: Home Medications Medication Instructions Recorded Confirmed Last Taken Type Acetaminophen [Tylenol] 650 mg PO BID PRN 05/23/20 05/23/20 1 Day Ago History ~05/22/20 Ibuprofen [Motrin 200 MG tab] 200 mg PO Q6H PRN 05/23/20 05/23/20 05/23/20 08:00 History Acetaminophen [Acetaminophen TAB] 650 mg PO BID PRN tablet 05/26/20 Unknown Rx Hydrocortisone 1% [Hydrocortisone 1 applic TP Q8H PRN #7 tube 05/26/20 Unknown Rx 1% CREAM] cephALEXin [Keflex] 500 mg PO Q6HR #40 capsule 05/26/20 Unknown Rx diphenhydrAMINE [Benadryl CAP] 25 mg PO Q6H PRN #20 capsule 05/26/20 Unknown Rx oxyCODONE /ACETAMINOPHEN [Percocet 1 tab PO Q6H PRN #60 tablet 05/26/20 Unknown Rx 5/325 mg] HYDROcodone/APAP 5-325 [Normal 1 each PO Q6HR PRN #12 tablet 05/31/20 Unknown Rx 5/325] cephALEXin [Keflex] 500 mg PO Q6HR #40 capsule 05/31/20 Unknown Rx Ciprofloxacin HCl [Ciprofloxacin 500 mg PO Q12HR #20 tab 06/17/20 Unknown Rx TAB] Naproxen 500 mg PO Q12H PRN #12 tablet 06/17/20 Unknown Rx Ondansetron [Zofran Odt] 4 mg PO Q8HR PRN #20 tab.rapdis 06/17/20 Unknown Rx metroNIDAZOLE [Flagyl] 500 mg PO Q12HR #20 tab 06/17/20 Unknown Rx Ciprofloxacin HCl 500 mg PO BID #20 tablet 10/14/20 Unknown Rx HYDROcodone/APAP 5-325 [Normal 1 - 2 each PO Q6HR PRN #14 tablet 10/14/20 Unknown Rx 5/325] Ibuprofen [Motrin 800 MG tab] 800 mg PO Q8HR PRN #20 tablet 10/14/20 Unknown Rx ED Review of Systems ROS: Stated complaint: FLUID BUILDUP IN LEGS Other details as noted in HPI Constitutional: fever Eyes: denies: eye pain ENT: denies: throat pain Respiratory: no symptoms reported Cardiovascular: denies: chest pain Endocrine: no symptoms reported Gastrointestinal: denies: abdominal pain Genitourinary: denies: dysuria Musculoskeletal: denies: back pain Skin: lesions, change in color Physical Exam - Physical Exam Vital Signs: Vital Signs 10/14/20 10/14/20 04:08 05:52 Temperature 98.3 F Pulse Rate 113 H 108 H Respiratory 18 18 Rate Blood Pressure 133/81 101/73 [Left] O2 Sat by Pulse 100 99 Oximetry Physical Exam: GENERAL: The patient is well-developed well-nourished female lying on stretcher resting comfortably but awakens to voice. [] HEENT: Normocephalic. Atraumatic. Extraocular motions are intact. Patient has moist mucous membranes. NECK: Supple. Trachea midline CHEST/LUNGS: Clear to auscultation. There is no respiratory distress noted. HEART/CARDIOVASCULAR: Regular. There is no tachycardia. There is no gallop rub or murmur. ABDOMEN: Abdomen is soft, nontender. Patient has normal bowel sounds. There is no abdominal distention. SKIN: There are scaly plaques of the bilateral lower extremities and right back/buttocks all of which have an erythematous base. No active drainage appreciated NEURO: The patient is awake, alert, and oriented. The patient is cooperative. The patient has no focal neurologic deficits. The patient has normal speech MUSCULOSKELETAL: There is no evidence of acute injury. ED Course Vital Signs 10/14/20 10/14/20 04:08 05:52 Temperature 98.3 F Pulse Rate 113 H 108 H Respiratory 18 18 Rate Blood Pressure 133/81 101/73 [Left] O2 Sat by Pulse 100 99 Oximetry ED Medical Decision Making - Lab Data Result diagrams: 10/14/20 04:13 10/14/20 04:13 Laboratory Tests 10/14/20 10/14/20 04:13 04:13 WBC 5.9 RBC 4.00 Hgb 9.5 L Hct 30.6 MCV 77 L MCH 24 L MCHC 31 RDW 22.4 H Plt Count 198 Lymph % (Auto) 23.2 [place] % (Auto) 9.0 H Eos % (Auto) 2.3 Baso % (Auto) 1.8 Lymph # (Auto) 1.4 [place] # (Auto) 0.5 Eos # (Auto) 0.1 Baso # (Auto) 0.1 Seg Neutrophils % 63.7 Seg Neutrophils # 3.8 Sodium 143 Potassium 3.9 Chloride 107.7 H Carbon Dioxide 26 Anion Gap 13 BUN 3 L Creatinine 0.4 L Estimated GFR > 60 BUN/Creatinine Ratio 8 Glucose 110 H Calcium 7.3 L Total Bilirubin 0.80 AST 47 H ALT 14 Alkaline Phosphatase 224 H Total Protein 7.6 Albumin 2.8 L Albumin/Globulin Ratio 0.6 - Differential Diagnosis Psoriasis, cellulitis Critical care attestation.: If time is entered above; I have spent that time in minutes in the direct care of this critically ill patient, excluding procedure time. ED Disposition Clinical Impression: Psoriasis, Cellulitis Disposition: [id number] TO HOME OR SELFCARE Is pt being admited?: No Does the pt Need Aspirin: No Condition: Stable Instructions: Cellulitis, Adult, Psoriasis Additional Instructions: Return to the emergency department should you develop worsening symptoms, inability to tolerate food or liquids, high fever or any other concerns Prescriptions: Ciprofloxacin HCl 500 mg PO BID #20 tablet Ibuprofen [Motrin 800 MG tab] 800 mg PO Q8HR PRN #20 tablet PRN Reason: Pain, Moderate (4-6) HYDROcodone/APAP 5-325 [Normal 5/325] 1 - 2 each PO Q6HR PRN #14 tablet PRN Reason: Pain Referrals: PRIMARY CAREMD [Primary Care Provider] - 3-5 Days PORSHA VALDERRAMA MD [Staff Physician] - 3-5 Days (Dr Valderrama is a multimedia developer. Please follow-up with him for further evaluation) Time of Disposition: 06:52
[2020-10-14] MEDS ORDERED: fentaNYL 100 MCG/2 ML INJ IM ONE (06:51)
[2020-10-14] MEDS ORDERED: LIDOCAINE-MPF (1%) 10 MG/1 ML VIAL 5 ML INFILTRATI ONE (06:51)
[2020-10-14] MEDS ORDERED: ONDANSETRON 4 MG/2 ML INJ IM ONE (06:51)
== END 2020-10-14 08:06 | disposition home or self-care (01) ==
LOC: ED 01:36
DX: L40.9 Psoriasis, unspecified (principal); I10 Essential (primary) hypertension; M19.90 Unspecified osteoarthritis, unspecified site; F41.9 Anxiety disorder, unspecified; F32.9 Major depressive disorder, single episode, unspecified; Z90.49 Acquired absence of other specified parts of digestive tract; Z87.891 Personal history of nicotine dependence; Z79.899 Other long term (current) drug therapy
CPT/HCPCS: 36415; 80053; 85025; 96372; 99283; J0696; J2405; J3010

== ENCOUNTER 2020-10-22 20:37 | Emergency (ER) | payer MEDICAID | END 2020-10-22 23:18 | disposition left against medical advice (07) | LOC: ED 20:37 | DX: R21 Rash and other nonspecific skin eruption (principal); Z53.21 Procedure and treatment not carried out due to patient leaving prior to being seen by health care provider ==

== ENCOUNTER 2020-12-01 03:47 | Emergency (ER) | payer MEDICAID ==
[2020-12-01 05:34] LABS: Hematocrit 36.6 % (30.3-42.9); Hemoglobin 11.6 gm/dl (10.1-14.3); Mean Corpuscular HGB Conc 32 % (30-34); Mean Corpuscular Volume 86 fl (79-97); Red Blood Count 4.28 M/mm3 (3.65-5.03)
[2020-12-01 05:35] LABS: Red Cell Distribution Width 29.9 % (13.2-15.2)
[2020-12-01 05:36] LABS: Platelet Count 90 K/mm3 (140-440)
[2020-12-01 05:50] LABS: Blood Urea Nitrogen 3 mg/dL (7-17); Calcium 7.5 mg/dL (8.4-10.2); Hemolysis Index 6
[2020-12-01 05:56] LABS: BUN/Creatinine Ratio 8
[2020-12-01 06:55] LABS: Anisocytosis 2+; Platelet Estimate Consistent w Auto; Total Cells Counted 100
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
[2020-12-01] MEDS ORDERED: MORPHINE 2 MG/1 ML INJ IM ONE (08:19)
[2020-12-01] MEDS ORDERED: diphenhydrAMINE 50 MG/ML VIAL IM ONE (08:20)
[2020-12-01] MEDS ORDERED: ONDANSETRON 4 MG ODT TAB PO ONE (08:20)
[2020-12-01] MEDS ORDERED: dexAMETHasone 20 MG/5 ML VIAL IM ONE (08:20)
[2020-12-01] MEDS ORDERED: MORPHINE 4 MG/1 ML INJ IM ONE (08:47)
[2020-12-01 09:47] VITALS: BP 117/71
== END 2020-12-01 09:20 | disposition home or self-care (01) ==
LOC: ED 03:47
DX: L40.9 Psoriasis, unspecified (principal); K70.30 Alcoholic cirrhosis of liver without ascites; D69.6 Thrombocytopenia, unspecified; G89.29 Other chronic pain; I10 Essential (primary) hypertension; M19.91 Primary osteoarthritis, unspecified site; F41.9 Anxiety disorder, unspecified; F32.9 Major depressive disorder, single episode, unspecified; Z98.890 Other specified postprocedural states; Z90.49 Acquired absence of other specified parts of digestive tract; Z87.891 Personal history of nicotine dependence; Z79.1 Long term (current) use of non-steroidal anti-inflammatories (NSAID); Z79.899 Other long term (current) drug therapy
CPT/HCPCS: 36415; 80048; 85007; 85025; 96372; 99284; J1100; J1200; J2270; Q0162

== ENCOUNTER 2021-01-25 02:00 | Emergency (ER) | payer MEDICAID ==
[2021-01-25] MEDS ORDERED: SODIUM CHLORIDE 0.9% 1000 ML 1,000 ML IV ONE (02:35)
[2021-01-25] MEDS ORDERED: ASPIRIN 325 MG TAB PO ONE (02:35)
--- NOTE | 2021-01-25 02:36 | Emergency Department Report ---
ED Chest Pain HPI - General Chief Complaint: Chest Pain Stated Complaint: CHEST PAIN PUI?: No Time Seen by Provider: 01/25/21 02:33 Source: patient Mode of arrival: Ambulatory Limitations: No Limitations - History of Present Illness Initial Comments: Patient is a 50-year-old female that presents emergency room with complaints of bilateral chest pain. Patient brought in by EMS. Patient states that her chest pain started 2 days ago. Patient dates her chest pain is worsening. Patient states she has had chronic generalized pain for many years. Patient states she has history of psoriasis that is severe and causes her a lot of pain. Patient states she does not see a system development manager. Patient states that her chest pain is throughout her entire chest. Patient states her chest pain is better with rest. Patient states her chest pain is worse with movement and palpation. Patient denies any past medical history except for psoriasis. Patient denies shortness of breath. Patient denies fever and chills. Patient denies recent travel. Patient denies recent international travel. Patient denies exposure to the novel coronavirus. Patient denies sick contacts. Patient denies fever and chills. Patient denies cough. Patient denies diarrhea. Patient denies coming in contact with anybody with symptoms of the novel coronavirus. Patient states she needs some treatment for her chronic pain. Patient denies allergies. Patient states that she tolerates Dilaudid and morphine well. MD Complaint: chest pain -: Sudden - Related Data Home Medications Medication Instructions Recorded Confirmed Last Taken Acetaminophen [Tylenol] 650 mg PO BID PRN 05/23/20 05/23/20 1 Day Ago ~05/22/20 Ibuprofen [Motrin 200 MG tab] 200 mg PO Q6H PRN 05/23/20 05/23/20 05/23/20 08:00 Previous Rx's Medication Instructions Recorded Last Taken Type Acetaminophen [Acetaminophen TAB] 650 mg PO BID PRN tablet 05/26/20 Unknown Rx Hydrocortisone 1% [Hydrocortisone 1 applic TP Q8H PRN #7 tube 05/26/20 Unknown Rx 1% CREAM] cephALEXin [Keflex] 500 mg PO Q6HR #40 capsule 05/26/20 Unknown Rx diphenhydrAMINE [Benadryl CAP] 25 mg PO Q6H PRN #20 capsule 05/26/20 Unknown Rx oxyCODONE /ACETAMINOPHEN [Percocet 1 tab PO Q6H PRN #60 tablet 05/26/20 Unknown Rx 5/325 mg] HYDROcodone/APAP 5-325 [[place] 1 each PO Q6HR PRN #12 tablet 05/31/20 Unknown Rx 5/325] cephALEXin [Keflex] 500 mg PO Q6HR #40 capsule 05/31/20 Unknown Rx Ciprofloxacin HCl [Ciprofloxacin 500 mg PO Q12HR #20 tab 06/17/20 Unknown Rx TAB] Naproxen 500 mg PO Q12H PRN #12 tablet 06/17/20 Unknown Rx Ondansetron [Zofran Odt] 4 mg PO Q8HR PRN #20 tab.rapdis 06/17/20 Unknown Rx metroNIDAZOLE [Flagyl] 500 mg PO Q12HR #20 tab 06/17/20 Unknown Rx Ciprofloxacin HCl 500 mg PO BID #20 tablet 10/14/20 Unknown Rx HYDROcodone/APAP 5-325 [[place] 1 - 2 each PO Q6HR PRN #14 tablet 10/14/20 Unknown Rx 5/325] Ibuprofen [Motrin 800 MG tab] 800 mg PO Q8HR PRN #20 tablet 10/14/20 Unknown Rx HYDROcodone/APAP 5-325 [[place] 1 each PO Q4HR PRN #10 tablet 12/01/20 Unknown Rx 5/325] Sulfamethoxazole/Trimethoprim 1 each PO BID #14 tablet 12/01/20 Unknown Rx [Bactrim DS TAB] hydrOXYzine HCL [Atarax] 25 mg PO Q6HR PRN #30 tablet 12/01/20 Unknown Rx Potassium Chloride [K-Dur] 20 meq PO QDAY #15 tablet 01/25/21 Unknown Rx methylPREDNISolone [Medrol 4MG 4 mg PO DAILY 6 Days #1 tab.ds.pk 01/25/21 Unknown Rx DOSEPAK (21 tabs)] Allergies Allergy/AdvReac Type Severity Reaction Status Date / Time No Known Allergies Allergy Verified 10/14/20 07:13 Heart Score - HEART Score History: Slightly suspicious EKG: Normal Age: 45-65 Risk factors: No known risk factors Troponin: < normal limit HEART Score: 1 - EKG Read Time Time EKG Completed: 03:23 EKG Read Time: 03:25 ED Review of Systems ROS: Stated complaint: CHEST PAIN Other details as noted in HPI ED Past Medical Hx - Past Medical History Hx Hypertension: Yes Hx Liver Disease: Yes (CIRRHOSIS) Hx Arthritis: Yes (knees arms hands) Hx Psychiatric Treatment: Yes (anxiety, DEPRESSION) Additional medical history: psoriasis. Chronic Pain - Surgical History Hx Appendectomy: Yes Additional Surgical History: - Social History Smoking Status: Never Smoker - Medications Home Medications: Home Medications Medication Instructions Recorded Confirmed Last Taken Type Acetaminophen [Tylenol] 650 mg PO BID PRN 05/23/20 05/23/20 1 Day Ago History ~05/22/20 Ibuprofen [Motrin 200 MG tab] 200 mg PO Q6H PRN 05/23/20 05/23/20 05/23/20 08:00 History Acetaminophen [Acetaminophen TAB] 650 mg PO BID PRN tablet 05/26/20 Unknown Rx Hydrocortisone 1% [Hydrocortisone 1 applic TP Q8H PRN #7 tube 05/26/20 Unknown Rx 1% CREAM] cephALEXin [Keflex] 500 mg PO Q6HR #40 capsule 05/26/20 Unknown Rx diphenhydrAMINE [Benadryl CAP] 25 mg PO Q6H PRN #20 capsule 05/26/20 Unknown Rx oxyCODONE /ACETAMINOPHEN [Percocet 1 tab PO Q6H PRN #60 tablet 05/26/20 Unknown Rx 5/325 mg] HYDROcodone/APAP 5-325 [[place] 1 each PO Q6HR PRN #12 tablet 05/31/20 Unknown Rx 5/325] cephALEXin [Keflex] 500 mg PO Q6HR #40 capsule 05/31/20 Unknown Rx Ciprofloxacin HCl [Ciprofloxacin 500 mg PO Q12HR #20 tab 06/17/20 Unknown Rx TAB] Naproxen 500 mg PO Q12H PRN #12 tablet 06/17/20 Unknown Rx Ondansetron [Zofran Odt] 4 mg PO Q8HR PRN #20 tab.rapdis 06/17/20 Unknown Rx metroNIDAZOLE [Flagyl] 500 mg PO Q12HR #20 tab 06/17/20 Unknown Rx Ciprofloxacin HCl 500 mg PO BID #20 tablet 10/14/20 Unknown Rx HYDROcodone/APAP 5-325 [[place] 1 - 2 each PO Q6HR PRN #14 tablet 10/14/20 Unknown Rx 5/325] Ibuprofen [Motrin 800 MG tab] 800 mg PO Q8HR PRN #20 tablet 10/14/20 Unknown Rx HYDROcodone/APAP 5-325 [[place] 1 each PO Q4HR PRN #10 tablet 12/01/20 Unknown Rx 5/325] Sulfamethoxazole/Trimethoprim 1 each PO BID #14 tablet 12/01/20 Unknown Rx [Bactrim DS TAB] hydrOXYzine HCL [Atarax] 25 mg PO Q6HR PRN #30 tablet 12/01/20 Unknown Rx Potassium Chloride [K-Dur] 20 meq PO QDAY #15 tablet 01/25/21 Unknown Rx methylPREDNISolone [Medrol 4MG 4 mg PO DAILY 6 Days #1 tab.ds.pk 01/25/21 Unknown Rx DOSEPAK (21 tabs)] ED Physical Exam - General Limitations: No Limitations General appearance: alert, in no apparent distress - Head Head exam: Present: atraumatic, normocephalic - Eye Eye exam: Present: normal appearance - ENT ENT exam: Present: mucous membranes moist - Neck Neck exam: Present: normal inspection - Respiratory Respiratory exam: Present: normal lung sounds bilaterally, chest wall tenderness (Palpation of the bilateral chest wall reproduces patient's symptoms. Patient has chest wall tenderness bilaterally.). Absent: respiratory distress - Cardiovascular Cardiovascular Exam: Present: regular rate, normal rhythm. Absent: systolic murmur, diastolic murmur, rubs, gallop - GI/Abdominal GI/Abdominal exam: Present: soft, normal bowel sounds - Rectal Rectal exam: Present: deferred - Extremities Exam Extremities exam: Present: normal inspection - Back Exam Back exam: Present: normal inspection - Neurological Exam Neurological exam: Present: alert, oriented X3 - Psychiatric Psychiatric exam: Present: normal affect, normal mood - Skin Skin exam: Present: warm, dry, other (Multiple psoriatic patches noted throughout the patient's skin.). Absent: rash ED Course Vital Signs 01/25/21 01/25/21 01/25/21 02:29 02:59 04:33 Temperature 97.8 F Pulse Rate 130 H 116 H 120 H Respiratory 16 16 16 Rate Blood Pressure 146/105 Blood Pressure 121/64 [Left] O2 Sat by Pulse 99 95 Oximetry YINA score - Yina Score Age > 65: (0) No Aspirin use within the Past 7 Days: (0) No 3 or more CAD Risk Factors: (0) No 2 or more Angina events in past 24 hrs: (0) No Known CAD with more than 50% Stenosis: (0) No Elevated Cardiac Markers: (0) No ST Deviation Greater than 0.5mm: (0) No YINA Score: 0 ED Medical Decision Making - Lab Data Result diagrams: 01/25/21 02:53 01/25/21 02:53 - EKG Data -: EKG Interpreted by Me EKG shows normal: sinus rhythm, axis, intervals, QRS complexes, ST-T waves Rate: normal - Radiology Data Radiology results: report reviewed, image reviewed interpreted by me: Chest x-ray: No pneumonia, no pneumothorax, no foreign body, no osseous fi ndings, no acute findings - Medical Decision Making Patient is a 50-year-old female that presents emergency room with complaints of chest pain. Patient has a history of psoriasis that her entire body is affected by. Patient has chronic pain from the psoriasis. Patient does not see a system development manager. Patient complains of bilateral chest pain. Patient's chest pain started 3 days ago but it really has been going on for years. Patient has been to this emergency room multiple emergency room's many of times. Patient had labs done which were essentially unremarkable except for abnormal LFTs and hypokalemia. Patient's troponin was negative. Patient EKG was negative for acute findings showed normal sinus rhythm. Patient had a chest x-ray which was negative for acute findings. I personally reviewed the EKG and the chest x-ray. Patient given Solu-Medrol for the patient's pain. Patient does not require further emergency medical services. Patient not require inpatient services. Patient is stable for discharge. Patient is pain can be managed as an outpat ient. Patient discharged home. - Differential Diagnosis Chest pain, chronic pain, chest wall pain, bilateral chest pain Critical care attestation.: If time is entered above; I have spent that time in minutes in the direct care of this critically ill patient, excluding procedure time. ED Disposition Clinical Impression: Chest wall pain, Thrombocytopenia, Hypokalemia, Elevated LFTs Chest pain Qualifiers: Chest pain type: unspecified Qualified Code(s): R07.9 - Chest pain, unspecified Disposition: - TO HOME OR SELFCARE Is pt being admited?: No Does the pt Need Aspirin: No Condition: Stable Instructions: Nonspecific Chest Pain, Adult, Chest Wall Pain, Potassium Content of Foods Additional Instructions: Patient to follow-up with primary care in 2 to 3 days. Patient to follow-up with water team leader and system development manager in 2 to 3 days. Patient to rest. Patient to increase water. Patient to avoid strenuous exercise or heavy lifting until cleared by water team leader. Patient to take Tylenol or ibuprofen as needed for pain. Patient to take meds as directed. Patient to return to the ER if condition worsens, changes or new symptoms arise. Prescriptions: Potassium Chloride [K-Dur] 20 meq PO QDAY #15 tablet methylPREDNISolone [Medrol 4MG DOSEPAK (21 tabs)] 4 mg PO DAILY 6 Days #1 tab.ds.pk Referrals: NACHO YU MD [Staff Physician] - 2-3 Days RONALDO SHELTON MD [Staff Physician] - 2-3 Days Time of Disposition: 05:28
[2021-01-25 03:32] LABS: Basophils % (Auto) 0.8 % (0.0-1.8); Eosinophils % (Auto) 4.8 % (0.0-4.3); Hematocrit 38.5 % (30.3-42.9); Hemoglobin 12.7 gm/dl (10.1-14.3); Lymphocytes % (Auto) 33.3 % (13.4-35.0); Mean Corpuscular HGB Conc 33 % (30-34); Mean Corpuscular Volume 95 fl (79-97); Monocytes # (Auto) 0.7 K/mm3 (0.0-0.8); Monocytes % (Auto) 11.5 % (0.0-7.3); Platelet Count 69 K/mm3 (140-440); Red Blood Count 4.07 M/mm3 (3.65-5.03); Red Cell Distribution Width 20.1 % (13.2-15.2)
[2021-01-25 03:33] LABS: Eosinophils # (Auto) 0.3 K/mm3 (0.0-0.4)
[2021-01-25 03:41] LABS: Alanine Aminotransferase 27 units/L (7-56); Albumin 2.7 g/dL (3.9-5); Blood Urea Nitrogen 2 mg/dL (7-17); Calcium 7.4 mg/dL (8.4-10.2); Hemolysis Index 4
[2021-01-25 03:42] LABS: BUN/Creatinine Ratio 5
[2021-01-25 04:34] VITALS: BP 121/64
[2021-01-25] MEDS ORDERED: methylPREDNISolone Sod Succinate 125 MG/2 ML INJ IV ONE (05:21)
--- NOTE | 2021-01-25 06:31 | XRay Report ---
XR chest 1V ap INDICATION / CLINICAL INFORMATION: Chest Pain COMPARISON: 05/31/2020 FINDINGS: SUPPORT DEVICES: None. HEART / MEDIASTINUM: No significant abnormality. LUNGS / PLEURA: Patient is wearing a bra. Low lung volumes. Increased attenuation in the right lower lung zone which is thought to be related to overlying soft tissue. Costophrenic sulci are sharp. No p neumothorax. ADDITIONAL FINDINGS: No significant additional findings. IMPRESSION: 1. Pulmonary hypoinflation without other significant abnormality identified. Signer Name: Florentino Courtney MD Signed: 01/25/2021 5:25 AM Workstation Name: [id number]
--- NOTE | 2021-01-28 17:37 | Electrocardiograph Report ---
[facility] Test Date: 2021-01-25 Test Time: 03:23:31 Pat Name: MAGY IYER Department: Room: Gender: F Rod Placer: : 1970 Requested By: GILL STEIN III Order Number: [id number] Reading MD: Az Wade Measurements Intervals [place] Rate: 107 P: 81 [place]: 178 QRS: 90 QRSD: 88 T: 91 QT: 374 QTc: 500 Interpretive Statements Sinus tachycardia Anteroseptal infarct, age indeterminate No previous ECG available for comparison Electronically Signed On 01-28-2021 17:37:07 EDT by Az Wade
== END 2021-01-25 06:00 | disposition home or self-care (01) ==
LOC: ED 02:00
DX: D69.6 Thrombocytopenia, unspecified (principal); E87.6 Hypokalemia; R07.89 Other chest pain; R79.89 Other specified abnormal findings of blood chemistry; I10 Essential (primary) hypertension; M19.91 Primary osteoarthritis, unspecified site; F41.9 Anxiety disorder, unspecified; F32.9 Major depressive disorder, single episode, unspecified; Z90.49 Acquired absence of other specified parts of digestive tract; Z98.890 Other specified postprocedural states; Z79.1 Long term (current) use of non-steroidal anti-inflammatories (NSAID); Z79.899 Other long term (current) drug therapy
CPT/HCPCS: 36415; 71045; 80053; 84484; 85025; 93005; 96361; 96374; 99284; J2930; J7030

== ENCOUNTER 2021-02-09 01:32 | Inpatient (IN) | payer MEDICAID ==
[2021-02-09] MEDS ORDERED: ASPIRIN 325 MG TAB PO ONE (03:29)
--- NOTE | 2021-02-09 04:11 | XRay Report ---
CHEST 2 VIEWS INDICATION / CLINICAL INFORMATION: chest pain. COMPARISON: One view of the chest from 01/25/2021. FINDINGS: SUPPORT DEVICES: None. HEART / MEDIASTINUM: No significant abnormality. LUNGS / PLEURA: A large right pleural effusion has developed in the interval with associated atelecta sis. The left lung is clear. No pneumothorax. ADDITIONAL FINDINGS: No significant additional findings. IMPRESSION: Large right pleural effusion with associated atelectasis. Signer Name: Abrahan Patterson MD Signed: 02/09/2021 4:07 AM Workstation Name: [id number]
[2021-02-09 04:40] LABS: Basophils % (Auto) 0.1 % (0.0-1.8); Eosinophils % (Auto) 0.2 % (0.0-4.3); Hematocrit 39.1 % (30.3-42.9); Hemoglobin 12.8 gm/dl (10.1-14.3); Lymphocytes # (Auto) 0.8 K/mm3 (1.2-5.4); Mean Corpuscular HGB Conc 33 % (30-34); Mean Corpuscular Volume 105 fl (79-97); Monocytes # (Auto) 1.4 K/mm3 (0.0-0.8); Monocytes % (Auto) 14.1 % (0.0-7.3); Red Blood Count 3.72 M/mm3 (3.65-5.03)
[2021-02-09 04:41] LABS: Platelet Count 94 K/mm3 (140-440); Red Cell Distribution Width 21.9 % (13.2-15.2)
[2021-02-09 04:59] LABS: Alanine Aminotransferase 57 units/L (7-56); Albumin 2.7 g/dL (3.9-5); Blood Urea Nitrogen 3 mg/dL (7-17); Hemolysis Index 10
[2021-02-09 05:14] LABS: BUN/Creatinine Ratio 15
[2021-02-09] MEDS ORDERED: LACTATED RINGERS 500 ML IV ONE (08:01)
[2021-02-09] MEDS ORDERED: HYDROmorphone 1 MG/1 ML INJ IV ONE (08:01)
[2021-02-09] MEDS ORDERED: PANTOPRAZOLE 40 MG INJ IV ONE (08:02)
[2021-02-09] MEDS ORDERED: METOCLOPRAMIDE 10 MG/2 ML INJ IV ONE (08:02)
[2021-02-09] MEDS ORDERED: LORazepam 2 MG/ML VIAL IV PRN ×2 (08:02)
--- NOTE | 2021-02-09 08:04 | Emergency Department Report ---
ED General Adult HPI - General Chief complaint: Chest Pain Stated complaint: CHEST PAIN/ABD PAIN PUI?: No Time Seen by Provider: 02/09/21 07:51 Source: patient, EMS ( EMS documentation not available at time of chart dicta tion ), RN notes reviewed, old records reviewed Mode of arrival: Stretcher Limitations: Physical Limitation - History of Present Illness Initial comments: The patient is a 50-year-old female. I have evaluated her in the past. Her past medical history includes alcohol induced cirrhosis, alcohol transaminitis, presumed esophageal varices, psoriasis, hypertension. The patient presents to the ER today with a complaint of nontraumatic epigastric and bilateral upper quadrant abdominal pain that radiates to the back. No nausea, vomiting, hematemesis of bright red blood per rectum. No dysuria. No homicidality or suicidality. Reports she has not consumed alcohol recently. She also reports the pain radiates up to her epigastric and subxiphoid region. She denies travel, surgery, leg swelling which is new or different, immobilization, and DVT/pulmonary embolism risk factors. Please note this patient had 3 CT scans of the chest within the past few years, all of which have been negative for pulmonary embolism. She denies loss of taste and smell. Denies fever. Denies loss of vision. -: Gradual, hour(s), days(s) Location: abdomen Radiation: back, other (Chest) Quality: aching Consistency: constant Improves with: none Worsens with: none - Related Data Home Medications Medication Instructions Recorded Confirmed Last Taken Acetaminophen [Tylenol] 650 mg PO BID PRN 05/23/20 05/23/20 1 Day Ago ~05/22/20 Ibuprofen [Motrin 200 MG tab] 200 mg PO Q6H PRN 05/23/20 05/23/20 05/23/20 08:00 Previous Rx's Medication Instructions Recorded Last Taken Type Acetaminophen [Acetaminophen TAB] 650 mg PO BID PRN tablet 05/26/20 Unknown Rx Hydrocortisone 1% [Hydrocortisone 1 applic TP Q8H PRN #7 tube 05/26/20 Unknown Rx 1% CREAM] cephALEXin [Keflex] 500 mg PO Q6HR #40 capsule 05/26/20 Unknown Rx diphenhydrAMINE [Benadryl CAP] 25 mg PO Q6H PRN #20 capsule 11/07/20 Unknown Rx oxyCODONE /ACETAMINOPHEN [Percocet 1 tab PO Q6H PRN #60 tablet 05/26/20 Unknown Rx 5/325 mg] HYDROcodone/APAP 5-325 [[place] 1 each PO Q6HR PRN #12 tablet 05/31/20 Unknown Rx 5/325] cephALEXin [Keflex] 500 mg PO Q6HR #40 capsule 05/31/20 Unknown Rx Ciprofloxacin HCl [Ciprofloxacin 500 mg PO Q12HR #20 tab 06/17/20 Unknown Rx TAB] Naproxen 500 mg PO Q12H PRN #12 tablet 06/17/20 Unknown Rx Ondansetron [Zofran Odt] 4 mg PO Q8HR PRN #20 tab.rapdis 06/17/20 Unknown Rx metroNIDAZOLE [Flagyl] 500 mg PO Q12HR #20 tab 06/17/20 Unknown Rx Ciprofloxacin HCl 500 mg PO BID #20 tablet 10/14/20 Unknown Rx HYDROcodone/APAP 5-325 [[place] 1 - 2 each PO Q6HR PRN #14 tablet 10/14/20 Unknown Rx 5/325] Ibuprofen [Motrin 800 MG tab] 800 mg PO Q8HR PRN #20 tablet 10/14/20 Unknown Rx HYDROcodone/APAP 5-325 [[place] 1 each PO Q4HR PRN #10 tablet 12/01/20 Unknown Rx 5/325] Sulfamethoxazole/Trimethoprim 1 each PO BID #14 tablet 12/01/20 Unknown Rx [Bactrim DS TAB] hydrOXYzine HCL [Atarax] 25 mg PO Q6HR PRN #30 tablet 12/01/20 Unknown Rx Potassium Chloride [K-Dur] 20 meq PO QDAY #15 tablet 01/25/21 Unknown Rx methylPREDNISolone [Medrol 4MG 4 mg PO DAILY 6 Days #1 tab.ds.pk 01/25/21 Unknown Rx DOSEPAK (21 tabs)] Allergies Allergy/AdvReac Type Severity Reaction Status Date / Time No Known Allergies Allergy Verified 10/14/20 07:13 ED Review of Systems ROS: Stated complaint: CHEST PAIN/ABD PAIN Other details as noted in HPI Constitutional: malaise, weakness. denies: fever Eyes: denies: eye discharge ENT: denies: epistaxis Respiratory: denies: cough Cardiovascular: chest pain Gastrointestinal: abdominal pain. denies: hematemesis, melena, hematochezia Genitourinary: denies: urgency Musculoskeletal: back pain Neurological: weakness Psychiatric: anxiety. denies: homicidal thoughts, suicidal thoughts ED Past Medical Hx - Past Medical History Previous Medical History?: Yes Hx Hypertension: Yes Hx Liver Disease: Yes (CIRRHOSIS) Hx Arthritis: Yes (knees arms hands) Hx Psychiatric Treatment: Yes (anxiety, DEPRESSION) Additional medical history: psoriasis. Chronic Pain - Surgical History Past Surgical History?: Yes Hx Appendectomy: Yes Additional Surgical History: - Social History Smoking Status: Current Every Day Smoker Substance Use Type: None - Medications Home Medications: Home Medications Medication Instructions Recorded Confirmed Last Taken Type Acetaminophen [Tylenol] 650 mg PO BID PRN 05/23/20 05/23/20 1 Day Ago History ~05/22/20 Ibuprofen [Motrin 200 MG tab] 200 mg PO Q6H PRN 05/23/20 05/23/20 05/23/20 08:00 History Acetaminophen [Acetaminophen TAB] 650 mg PO BID PRN tablet 05/26/20 Unknown Rx Hydrocortisone 1% [Hydrocortisone 1 applic TP Q8H PRN #7 tube 05/26/20 Unknown Rx 1% CREAM] cephALEXin [Keflex] 500 mg PO Q6HR #40 capsule 05/26/20 Unknown Rx diphenhydrAMINE [Benadryl CAP] 25 mg PO Q6H PRN #20 capsule 05/26/20 Unknown Rx oxyCODONE /ACETAMINOPHEN [Percocet 1 tab PO Q6H PRN #60 tablet 05/26/20 Unknown Rx 5/325 mg] HYDROcodone/APAP 5-325 [[place] 1 each PO Q6HR PRN #12 tablet 05/31/20 Unknown Rx 5/325] cephALEXin [Keflex] 500 mg PO Q6HR #40 capsule 05/31/20 Unknown Rx Ciprofloxacin HCl [Ciprofloxacin 500 mg PO Q12HR #20 tab 06/17/20 Unknown Rx TAB] Naproxen 500 mg PO Q12H PRN #12 tablet 06/17/20 Unknown Rx Ondansetron [Zofran Odt] 4 mg PO Q8HR PRN #20 tab.rapdis 06/17/20 Unknown Rx metroNIDAZOLE [Flagyl] 500 mg PO Q12HR #20 tab 06/17/20 Unknown Rx Ciprofloxacin HCl 500 mg PO BID #20 tablet 10/14/20 Unknown Rx HYDROcodone/APAP 5-325 [[place] 1 - 2 each PO Q6HR PRN #14 tablet 10/14/20 Unknown Rx 5/325] Ibuprofen [Motrin 800 MG tab] 800 mg PO Q8HR PRN #20 tablet 10/14/20 Unknown Rx HYDROcodone/APAP 5-325 [[place] 1 each PO Q4HR PRN #10 tablet 12/01/20 Unknown Rx 5/325] Sulfamethoxazole/Trimethoprim 1 each PO BID #14 tablet 12/01/20 Unknown Rx [Bactrim DS TAB] hydrOXYzine HCL [Atarax] 25 mg PO Q6HR PRN #30 tablet 12/01/20 Unknown Rx Potassium Chloride [K-Dur] 20 meq PO QDAY #15 tablet 01/25/21 Unknown Rx methylPREDNISolone [Medrol 4MG 4 mg PO DAILY 6 Days #1 tab.ds.pk 01/25/21 Unknown Rx DOSEPAK (21 tabs)] ED Physical Exam - General Limitations: No Limitations General appearance: alert, anxious - Head Head exam: Present: atraumatic, normocephalic - Eye Eye exam: Present: normal appearance, EOMI. Absent: nystagmus - ENT ENT exam: Present: normal exam, normal orophraynx, mucous membranes moist, n ormal external ear exam - Neck Neck exam: Present: normal inspection, full ROM. Absent: tenderness, meningismus - Respiratory Respiratory exam: Present: normal lung sounds bilaterally. Absent: respiratory distress, wheezes, rales, rhonchi, stridor, decreased breath sounds - Cardiovascular Cardiovascular Exam: Present: normal rhythm, tachycardia, normal heart sounds. Absent: bradycardia, irregular rhythm, systolic murmur, diastolic murmur, rubs, gallop - GI/Abdominal GI/Abdominal exam: Present: soft, tenderness, other (There is epigastric tenderness.). Absent: distended, guarding, rebound, rigid, pulsatile mass - Extremities Exam Extremities exam: Present: full ROM, pedal edema (1+ edema in the bilateral lower extremities), other (2+ pulses noted in the bilateral upper and lower extremities. There is no palpable cord. negative Homans sign. Muscular compartments are soft. The pelvis is stable.). Absent: normal inspection (Chronic psoriatic lesions noted), calf tenderness - Back Exam Back exam: Present: normal inspection. Absent: tenderness, CVA tenderness (R), CVA tenderness (L), paraspinal tenderness, vertebral tenderness - Neurological Exam Neurological exam: Present: alert, other (No facial droop. Tongue midline. Extraocular movements intact bilaterally. Facial sensation intact to light touc h in V1, V2, V3 distribution bilaterally. 5 and a 5 strength in 4 extremities. Sensation intact to light touch in 4 extremities.) - Psychiatric Psychiatric exam: Present: anxious. Absent: suicidal ideation - Skin Skin exam: Present: warm, other (Chronic psoriatic lesions noted) ED Course Vital Signs 02/09/21 02/09/21 02/09/21 02:58 07:55 08:00 Temperature 98.6 F Pulse Rate 125 H 113 H 113 H Respiratory 18 29 H 33 H Rate Blood Pressure 144/92 152/89 O2 Sat by Pulse 95 99 93 Oximetry 02/09/21 02/09/21 02/09/21 08:16 08:53 09:37 Temperature Pulse Rate 112 H Respiratory 28 H 18 18 Rate Blood Pressure 152/89 O2 Sat by Pulse 100 98 Oximetry 02/09/21 02/09/21 02/09/21 09:48 10:00 10:16 Temperature Pulse Rate 114 H 113 H 115 H Respiratory 27 H 26 H Rate Blood Pressure 171/100 146/97 146/97 O2 Sat by Pulse 77 L 95 Oximetry 02/09/21 02/09/21 02/09/21 10:30 10:46 11:04 Temperature Pulse Rate 123 H 118 H 116 H Respiratory 29 H 24 28 H Rate Blood Pressure 146/97 146/97 O2 Sat by Pulse Oximetry 02/09/21 02/09/21 02/09/21 11:16 11:30 11:46 Temperature Pulse Rate 121 H 130 H 133 H Respiratory 19 27 H 26 H Rate Blood Pressure 146/97 146/97 146/97 O2 Sat by Pulse Oximetry - Reevaluation(s) Reevaluation #1: 02/09/21 09:14 Differential diagnosis, including but not limited to: GERD, gastritis, hiatal hernia, pneumonia, coronary artery disease, alcoholic hepatitis, esophagitis, spontaneous bacterial peritonitis, hepatitis, cholelithiasis, cholecystitis, pancreatitis, urinary tract infection Assessment and plan: 50-year-old female, with known history of alcoholic cir rhosis, who denies travel, surgery, immobilization, DVT and pulmonary embolism risk factors, low risk by Wells criteria for pulmonary embolism, who has had 3 - CT scans of the chest in the recent past few years for pulmonary embolism, presenting with anxiety, not homicidal or suicidal, clinically sober, GCS of 15, denies alcohol use, denies homicidality and suicidality, with epigastric pain that radiates to the back, acute on chronic transaminitis, acute on chronic hyperbilirubinemia, suspicious for exacerbation of underlying alcoholic hepatitis. Place patient on alcohol withdrawal protocol. Medicated empirically with ceftriaxone, IV fluids, banana bag, start alcohol withdrawal protocol. INR 1.65. Withhold paracentesis at this time. The patient is not clinically encephalopathic at this time. Request urinalysis. Obtain right upper quadrant ultrasound, and CT scan of the abdomen pelvis. Contacted GI on-call, Dr. Cheng. Have discussed the patient's history, physical, laboratory studies, imaging studies, and plan of care. He will follow in consultation, and is agreeable to the plan of care. Hold aspirin at this time, given patient's history of cirrhosis and known varices. Admit this patient to the medical service once initial diagnostics have resulted. I discussed this plan of care with the patient. She is agreeable to the aforementioned. I suspect the patient is not forthcoming about alcohol consumption. Suspect tachycardia secondary to anxiety, pain, and acute exacerbation of cirrhosis and hepatitis. Do not suspect a pulmonary embolism at this time. Reevaluation #2: 02/09/21 09:18 Lactic acidosis is likely a type II lactic acidosis, likely secondary to underlying chronic hepatic disease. Patient is ruling in for SIRS/systemic i nflammatory response syndrome. This is manifested by tachycardia and lactic acidosis. However, the patient is demonstrating some evidence of fluid overload, manifest by right sided pleural effusion, abdominal distention, and lower extremity edema. I will not bolus this patient with 30 cc/kg bolus of IV fluids. She will be given 1.5 L of fluid in total, between 500 cc of lactated Ringer's, and 1 L of banana bag. We will repeat lactic acid after this initial resuscitation, and defer further fluid management to the inpatient team. 02/09/21 11:58 Dr. Barragan to admit patient to the medical service. Updated patient with her findings. She has endorsed understanding. - Consultations Consultation #1: 02/09/21 09:27 Discussed patient's history, physical, laboratory studies and imaging studies with pulmonology on-call, Dr. Colleen Thorne He will follow in consultation, and agrees with the current plan of care. ED Medical Decision Making - Lab Data Result diagrams: 02/09/21 03:50 02/09/21 03:50 Vital Signs 02/09/21 02:58 Temperature 98.6 F Pulse Rate 125 H Respiratory 18 Rate Blood Pressure 144/92 O2 Sat by Pulse 95 Oximetry Lab Results 02/09/21 02/09/21 02/09/21 Range/Units 03:50 03:50 06:31 WBC 10.3 (4.5-11.0) K/mm3 RBC 3.72 (3.65-5.03) M/mm3 Hgb 12.8 (10.1-14.3) gm/dl Hct 39.1 (30.3-42.9) % MCV 105 H (79-97) fl MCH 34 H (28-32) pg MCHC 33 (30-34) % RDW 21.9 H (13.2-15.2) % Plt Count 94 L (140-440) K/mm3 Lymph % (Auto) 8.0 L (13.4-35.0) % [place] % (Auto) 14.1 H (0.0-7.3) % Eos % (Auto) 0.2 (0.0-4.3) % Baso % (Auto) 0.1 (0.0-1.8) % Lymph # (Auto) 0.8 L (1.2-5.4) K/mm3 [place] # (Auto) 1.4 H (0.0-0.8) K/mm3 Eos # (Auto) 0.0 (0.0-0.4) K/mm3 Baso # (Auto) 0.0 (0.0-0.1) K/mm3 Seg Neutrophils % 77.6 H (40.0-70.0) % Seg Neutrophils # 8.0 H (1.8-7.7) K/mm3 PT (12.2-14.9) Sec. INR (0.87-1.13) Sodium 139 (137-145) mmol/L Potassium 3.6 (3.6-5.0) mmol/L Chloride 100.5 (98-107) mmol/L Carbon Dioxide 25 (22-30) mmol/L Anion Gap 17 mmol/L BUN 3 L (7-17) mg/dL Creatinine 0.2 L (0.6-1.2) mg/dL Estimated GFR > 60 ml/min BUN/Creatinine Ratio 15 % Glucose 135 H (65-100) mg/dL Lactic Acid (0.7-2.0) mmol/L Calcium 8.0 L (8.4-10.2) mg/dL Magnesium (1.7-2.3) mg/dL Total Bilirubin 5.20 H (0.1-1.2) mg/dL AST 189 H (5-40) units/L ALT 57 H (7-56) units/L Alkaline Phosphatase 619 H (35-129) units/L Total Creatine Kinase (30-135) units/L Troponin T < 0.010 < 0.010 (0.00-0.029) ng/mL Total Protein 5.8 L (6.3-8.2) g/dL Albumin 2.7 L (3.9-5) g/dL Albumin/Globulin Ratio 0.9 % Lipase (13-60) units/L Acetaminophen (10.0-30.0) ug/mL 02/09/21 02/09/21 02/09/21 Range/Units 08:09 08:09 08:09 WBC (4.5-11.0) K/mm3 RBC (3.65-5.03) M/mm3 Hgb (10.1-14.3) gm/dl Hct (30.3-42.9) % MCV (79-97) fl MCH (28-32) pg MCHC (30-34) % RDW (13.2-15.2) % Plt Count (140-440) K/mm3 Lymph % (Auto) (13.4-35.0) % [place] % (Auto) (0.0-7.3) % Eos % (Auto) (0.0-4.3) % Baso % (Auto) (0.0-1.8) % Lymph # (Auto) (1.2-5.4) K/mm3 [place] # (Auto) (0.0-0.8) K/mm3 Eos # (Auto) (0.0-0.4) K/mm3 Baso # (Auto) (0.0-0.1) K/mm3 Seg Neutrophils % (40.0-70.0) % Seg Neutrophils # (1.8-7.7) K/mm3 PT 20.1 H (12.2-14.9) Sec. INR 1.65 H (0.87-1.13) Sodium (137-145) mmol/L Potassium (3.6-5.0) mmol/L Chloride (98-107) mmol/L Carbon Dioxide (22-30) mmol/L Anion Gap mmol/L BUN (7-17) mg/dL Creatinine (0.6-1.2) mg/dL Estimated GFR ml/min BUN/Creatinine Ratio % Glucose (65-100) mg/dL Lactic Acid 3.30 H* (0.7-2.0) mmol/L Calcium (8.4-10.2) mg/dL Magnesium 1.40 L (1.7-2.3) mg/dL Total Bilirubin (0.1-1.2) mg/dL AST (5-40) units/L ALT (7-56) units/L Alkaline Phosphatase (35-129) units/L Total Creatine Kinase 62 (30-135) units/L Troponin T (0.00-0.029) ng/mL Total Protein (6.3-8.2) g/dL Albumin (3.9-5) g/dL Albumin/Globulin Ratio % Lipase (13-60) units/L Acetaminophen (10.0-30.0) ug/mL 02/09/21 02/09/21 Range/Units 08:09 08:09 WBC (4.5-11.0) K/mm3 RBC (3.65-5.03) M/mm3 Hgb (10.1-14.3) gm/dl Hct (30.3-42.9) % MCV (79-97) fl MCH (28-32) pg MCHC (30-34) % RDW (13.2-15.2) % Plt Count (140-440) K/mm3 Lymph % (Auto) (13.4-35.0) % [place] % (Auto) (0.0-7.3) % Eos % (Auto) (0.0-4.3) % Baso % (Auto) (0.0-1.8) % Lymph # (Auto) (1.2-5.4) K/mm3 [place] # (Auto) (0.0-0.8) K/mm3 Eos # (Auto) (0.0-0.4) K/mm3 Baso # (Auto) (0.0-0.1) K/mm3 Seg Neutrophils % (40.0-70.0) % Seg Neutrophils # (1.8-7.7) K/mm3 PT (12.2-14.9) Sec. INR (0.87-1.13) Sodium (137-145) mmol/L Potassium (3.6-5.0) mmol/L Chloride (98-107) mmol/L Carbon Dioxide (22-30) mmol/L Anion Gap mmol/L BUN (7-17) mg/dL Creatinine (0.6-1.2) mg/dL Estimated GFR ml/min BUN/Creatinine Ratio % Glucose (65-100) mg/dL Lactic Acid (0.7-2.0) mmol/L Calcium (8.4-10.2) mg/dL Magnesium (1.7-2.3) mg/dL Total Bilirubin (0.1-1.2) mg/dL AST (5-40) units/L ALT (7-56) units/L Alkaline Phosphatase (35-129) units/L Total Creatine Kinase (30-135) units/L Troponin T (0.00-0.029) ng/mL Total Protein (6.3-8.2) g/dL Albumin (3.9-5) g/dL Albumin/Globulin Ratio % Lipase 25 (13-60) units/L Acetaminophen 5.0 L (10.0-30.0) ug/mL - EKG Data -: EKG Interpreted by Ak EKG shows normal: sinus rhythm Rate: tachycardia - EKG Data 02/09/21 09:21 EKG interpreted at 03: 09 Sinus rhythm, tachycardia, 120 bpm, normal axis, low voltage in the inferior leads, poor R wave progression, LVH in the lateral leads, motion artifact, QTC 458 ms. Abnormal EKG. Not a STEMI. Appears unchanged when compared to prior EKG from 01/25/2021 - Radiology Data Radiology results: pending, report reviewed, image reviewed CHEST 2 VIEWS INDICATION / CLINICAL INFORMATION: chest pain. COMPARISON: One view of the chest from 01/25/2021. FINDINGS: SUPPORT DEVICES: None. HEART / MEDIASTINUM: No significant abnormality. LUNGS / PLEURA: A large right pleural effusion has developed in the interval with associated atelectasis. The left lung is clear. No pneumothorax. ADDITIONAL FINDINGS: No significant additional findings. IMPRESSION: Large right pleural effusion with associated atelectasis. Signer Name: Abrahan Patterson MD Signed: 02/09/2021 3:07 AM Workstation Name: [id number] CT ABDOMEN AND PELVIS WITH CONTRAST INDICATION: abd pain transaminits OMNIPAQUE 300 100ML PT UNABLE TO RAISE ARMS CONTRAST: 100 cc Omnipaque 300 IV COMPARISON: CT abdomen and pelvis 06/29/2020, 06/17/2020, 11/10/[address] scans at this location are performed using CT dose reduction for ALARA by means of automated exposure control. FINDINGS: There is now a large right pleural effusion with associated prominent atelectasis in the right lower lobe and right middle lobe. Pleural effusion is of water density. No obvious pleural thickening or nodularity is seen. No pleural effusion was seen on prior studies. Left lung base is clear. No pneumoperitoneum is noted. The cirrhotic appearance of the liver is again seen. There is prominent heterogenous hypodensity in much of the liver but particularly throughout the right lobe. Review of multiple prior studies shows a similar pattern of hypodensity which is not as an intensely hypodense with as much contrast with the parenchyma as on current examination though this may in part relate to different phases of contrast. Certainly I would have difficulty excluding metastatic disease with this appearance though the general pattern of distribution is not significantly changed over multiple studies in more than one year. Spleen is not enlarged. Multiple gallstones are again seen. No biliary dilatation is noted. I see no abnormalities of the adrenals, pancreas, or kidneys. No urinary obstructive changes are seen. The colon shows mild diverticulosis without evidence of diverticulitis. Colonic wall appears edematous through much of the colon but particularly the ascending colon and descending colon. No evidence of bowel obstruction is seen. Large somewhat complex anterior pelvic wall midline hernia extends to the left contains vasculature of the omentum but no obvious bowel and is unchanged from prior studies. Mild ascites is seen. Moderate diffuse subcutaneous edema is noted. Appendix is not visualized. IMPRESSION: 1. Development of large right pleural effusion and associated atelectatic changes 2. Cirrhotic appearance of the liver. Note comments above concerning prominent heterogenous hypodensity throughout the liver. 3. Evidence of mild to moderate anasarca 4. Though possibly just related to edema in general, colonic pattern is of concern for colitis without obvious complication. Signer Name: Philip Thomason MD Signed: 02/09/2021 9:41 AM Workstation Name: [id number] ULTRASOUND ABDOMEN, limited INDICATION / CLINICAL INFORMATION: abd pain transaminits. COMPARISON: None available. FINDINGS: PANCREAS: No significant abnormality. ABDOMINAL AORTA: No significant abnormality. IVC: No significant abnormality. LIVER: No significant abnormality. GALLBLADDER: Multiple gallstones are identified. Gallbladder wall measures 3 mm. No pericholecystic fluid BILE DUCTS: No significant abnormality. Common bile duct measures 3 mm. KIDNEYS: Right: No significant abnormality. ADDITIONAL FINDINGS: None. IMPRESSION: 1. Cholelithiasis with gallbladder wall upper limits of normal. No pericholecystic fluid. 2. Abdominal ascites Signer Name: Arturo Willoughby MD Signed: 02/09/2021 9:45 AM Workstation Name: [id number] Critical Care Time: Yes Critical care time in (mins) excluding proc time.: 35 Critical care attestation.: If time is entered above; I have spent that time in minutes in the direct care of this critically ill patient, excluding procedure time. ED Disposition Clinical Impression: Ascites, Coagulopathy, Elevated LFTs, Cirrhosis of liver, Alcoholic cirrhosis of liver with ascites, Thrombocytopenia, Esophageal varices, Hypomagnesemia, Pleural effusion, Epigastric abdominal pain Disposition: -09 OP ADMIT IP TO THIS HOSP Is pt being admited?: No Condition: Serious Referrals: PRIMARY CARE, [Primary Care Provider] - 3-5 Days
[2021-02-09] MEDS ORDERED: cefTRIAXone/NS 1 GM/50 ML 1 GM/50 ML BAG IV ONE (08:07)
[2021-02-09] MEDS ORDERED: MAGNESIUM OXIDE 400 MG TAB PO STA (08:52)
[2021-02-09] MEDS ORDERED: MAGNESIUM SULFATE 2 GM/50 ML BAG IV ONE (08:52)
[2021-02-09 08:55] LABS: INR 1.65 (0.87-1.13)
[2021-02-09] MEDS: LORazepam 2 MG/ML VIAL IV PRN ×2 (09:52→20:46)
[2021-02-09] MEDS ORDERED: THIAMINE 100 MG, FOLIC ACID 1 MG, MULTIPLE VITAMIN INJ, ADULT 10 ML in SODIUM CHLORIDE ... IV ONE (10:00)
--- NOTE | 2021-02-09 10:45 | Cat Scan Report ---
CT ABDOMEN AND PELVIS WITH CONTRAST INDICATION: abd pain transaminits OMNIPAQUE 300 100ML PT UNABLE TO RAISE ARMS CONTRAST: 100 cc Omnipaque 300 IV COMPARISON: CT abdomen and pelvis 06/29/2020, 06/17/2020, 11/10/[address] scans at this location are performed using CT dose reduction for ALARA by means of automated e xposure control. FINDINGS: There is now a large right pleural effusion with associated prominent atelectasis in the ri ght lower lobe and right middle lobe. Pleural effusion is of water density. No obvious pleural thicke melissa or nodularity is seen. No pleural effusion was seen on prior studies. Left lung base is clear. No pneumoperitoneum is noted. The cirrhotic appearance of the liver is again seen. There is prominent heterogenous hypodensity in much of the liver but particularly throughout the right lobe. Review of multiple prior studies shows a similar pattern of hypodensity which is not as an intensely hypodense with as much contrast with the parenchyma as on current examination though this may in part relate to different phases of contrast. Certainly I would have difficulty excluding metastatic disease with th is appearance though the general pattern of distribution is not significantly changed over multiple s tudies in more than one year. Spleen is not enlarged. Multiple gallstones are again seen. No biliary dilatation is noted. I see no abnormalities of the adrenals, pancreas, or kidneys. No urinary obstructive changes are seen. The col on shows mild diverticulosis without evidence of diverticulitis. Colonic wall appears edematous throu gh much of the colon but particularly the ascending colon and descending colon. No evidence of bowel obstruction is seen. Large somewhat complex anterior pelvic wall midline hernia extends to the left c ontains vasculature of the omentum but no obvious bowel and is unchanged from prior studies. Mild asc ites is seen. Moderate diffuse subcutaneous edema is noted. Appendix is not visualized. IMPRESSION: 1. Development of large right pleural effusion and associated atelectatic changes 2. Cirrhotic appearance of the liver. Note comments above concerning prominent heterogenous hypodensi ty throughout the liver. 3. Evidence of mild to moderate anasarca 4. Though possibly just related to edema in general, colonic pattern is of concern for colitis withou t obvious complication. Signer Name: Philip Thomason MD Signed: 02/09/2021 10:41 AM Workstation Name: [id number]
--- NOTE | 2021-02-09 10:49 | Ultrasound Report ---
. ULTRASOUND ABDOMEN, limited INDICATION / CLINICAL INFORMATION: abd pain transaminits. COMPARISON: None available. FINDINGS: PANCREAS: No significant abnormality. ABDOMINAL AORTA: No significant abnormality. IVC: No significant abnormality. LIVER: No significant abnormality. GALLBLADDER: Multiple gallstones are identified. Gallbladder wall measures 3 mm. No pericholecystic f luid BILE DUCTS: No significant abnormality. Common bile duct measures 3 mm. KIDNEYS: Right: No significant abnormality. ADDITIONAL FINDINGS: None. IMPRESSION: 1. Cholelithiasis with gallbladder wall upper limits of normal. No pericholecystic fluid. 2. Abdominal ascites Signer Name: Arturo Willoughby MD Signed: 02/09/2021 10:45 AM Workstation Name: [id number]
[2021-02-09] MEDS ORDERED: FUROSEMIDE 40 MG/4 ML INJ IV ONE (11:49)
--- NOTE | 2021-02-09 12:28 | History and Physical Report ---
History of Present Illness Chief complaint: Her stomach has been hurting History of present illness: 50 YO Female with ESLD complicated by Cirrhosis, ETOH Dependence, OA, MALENA, Despression, Chronic Pain Syndrome, HTN, Nicotine Dependence presents to ED for evaluation. Patient has diminished cognition and is unable to provide detailed history at the time of my evaluation. Patient history taken from EMS staff, ED staff, as well as patient's family was made available by telephone. As per family the patient has complained of abdominal pain over the past 4 days. EMS was notified and upon arrival the patient was found to be in distress and subsequently transported to [facility] for further care and evaluation of the afo rementioned symptoms. The patient was seen and evaluated in the emergency department. All lab and imaging studies reviewed. Patient found to have end- stage liver disease, metabolic acidosis, metabolic encephalopathy, as well as right pleural effusion. Patient placed in observation status and admitted to medical floor. GI team consulted in ED, pulmonary team consulted in ED. No further history is obtainable. Patient has diminished cognition at the time my evaluation but has a positive gag reflex and able to protect her airway without difficulty. No reports of fever, chills, chest pain, palpitation, productive cough, skin rash, recent ill contacts, prolonged travel/immobility, unilateral leg swelling, calf pain, individual/family history of DVT/PE/bleeding/blood clotting disorders, or known exposure to COVID-19. Past History Past Medical History: arthritis, hypertension, other (See HPI) Past Surgical History: appendectomy, Social history: , lives with family, smoking, alcohol abuse Family history: hypertension Medications and Allergies Allergies Allergy/AdvReac Type Severity Reaction Status Date / Time No Known Allergies Allergy Verified 10/14/20 07:13 Home Medications Medication Instructions Recorded Confirmed Last Taken Type Betamethasone Dipro 0.05%(Nf) 1 applicatio TP BID 02/09/21 02/09/21 Unknown History [Diprosone 0.05% Oint] DOXYCYCLINE Hyclate 02/09/21 Unknown History DOXYCYCLINE Hyclate [Vibramycin 02/09/21 Unknown History CAP] DOXYCYCLINE Hyclate [Vibramycin 02/09/21 Unknown History CAP] DOXYCYCLINE Hyclate [Vibramycin] 100 mg PO 02/09/21 Unknown History Furosemide [Lasix TAB] 02/09/21 Unknown History Furosemide [Lasix] 20 mg PO QDAY 02/09/21 02/09/21 Unknown History Gabapentin [Neurontin] 400 mg PO Q8HR 02/09/21 02/09/21 Unknown History HYDROcodone/ACETAMINOPHEN 1 each PO 02/09/21 Unknown History [Verdrocet 2.5-325 mg TAB] Hydroxyzine HCl [hydrOXYzine] 50 mg PO 02/09/21 Unknown History Ibuprofen [Motrin 800 MG tab] 02/09/21 Unknown History Ibuprofen [Motrin Ib] 200 mg PO 02/09/21 Unknown History Linezolid [Zyvox] 600 mg PO 02/09/21 Unknown History Oxycodone HCl [oxyCODONE] 10 mg PO 02/09/21 Unknown History Oxycodone HCl/Acetaminophen 1 each PO 02/09/21 Unknown History [Oxycodone-Acetaminophen 10-325] Oxycodone-Acetaminophen 10-325 02/09/21 Unknown History Oxycodone-Acetaminophen 10-325 02/09/21 Unknown History Pantoprazole [Protonix] 40 mg PO QDAY 02/09/21 02/09/21 Unknown History carvediloL 02/09/21 Unknown History hydrOXYzine HCL [Atarax] 25 mg PO 02/09/21 Unknown History predniSONE [Deltasone] 02/09/21 Unknown History Active Meds: Active Medications Thiamine HCl 100 mg/ Folic Acid 1 mg/ Multivitamins/Minerals 10 ml/ Sodium Chloride 1,011.2 mls @ 250 mls/hr IV ONCE ONE Stop: 02/09/21 14:02 Last Admin: 02/09/21 09:51 Dose: 250 mls/hr Documented by: Lorazepam (Lorazepam 2 Mg/Ml Vial) 2 mg IV Q1HR PRN PRN Reason: CIWA-Ar 8-15 Last Admin: 02/09/21 09:52 Dose: 2 mg Documented by: Lorazepam (Lorazepam 2 Mg/Ml Vial) 4 mg IV Q1HR PRN PRN Reason: CIWA-Ar 16-25 Lorazepam (Lorazepam 2 Mg/Ml Vial) 4 mg IV Q15MIN PRN PRN Reason: CIWA-Ar >25 Spironolactone (Spironolactone 25 Mg Tab) 25 mg PO ONCE ONE Stop: 02/09/21 13:01 Review of Systems ROS unobtainable: due to mental status Exam - Constitutional Vitals: Temp Pulse Resp BP Pulse Ox 98.6 F 133 H 26 H 146/97 95 02/09/21 02:58 02/09/21 11:46 02/09/21 11:46 02/09/21 11:46 02/09/21 10:00 General appearance: Present: mild distress - EENT Eyes: Present: PERRL ENT: clear oral mucosa, hearing decreased - Neck Neck: Present: supple, normal ROM - Respiratory Respiratory effort: normal Respiratory: bilateral: CTA - Cardiovascular Heart Sounds: Present: S1 & S2. Absent: rub, click - Extremities Extremities: pulses symmetrical, No edema Peripheral Pulses: within normal limits - Abdominal General gastrointestinal: Present: soft, tender, non-distended. Absent: splenomegaly, mass - Integumentary Integumentary: Present: clear, warm, dry - Musculoskeletal Musculoskeletal: generalized weakness - Psychiatric Psychiatric: no appropriate mood/affect, no intact judgment & insight, no memory intact - Neurologic Neurologic: CNII-XII intact, no focal deficits, moves all extremities, no gait normal HEART Score - HEART Score Troponin: Troponin T < 0.010 ng/mL (0.00-0.029) 02/09/21 06:31 Results - Labs CBC & Chem 7: 02/09/21 03:50 02/09/21 03:50 Labs: Abnormal lab results 02/09/21 02/09/21 02/09/21 Range/Units 03:50 03:50 08:09 MCV 105 H (79-97) fl MCH 34 H (28-32) pg RDW 21.9 H (13.2-15.2) % Plt Count 94 L (140-440) K/mm3 Lymph % (Auto) 8.0 L (13.4-35.0) % [place] % (Auto) 14.1 H (0.0-7.3) % Lymph # (Auto) 0.8 L (1.2-5.4) K/mm3 [place] # (Auto) 1.4 H (0.0-0.8) K/mm3 Seg Neutrophils % 77.6 H (40.0-70.0) % Seg Neutrophils # 8.0 H (1.8-7.7) K/mm3 PT 20.1 H (12.2-14.9) Sec. INR 1.65 H (0.87-1.13) BUN 3 L (7-17) mg/dL Creatinine 0.2 L (0.6-1.2) mg/dL Glucose 135 H (65-100) mg/dL Lactic Acid (0.7-2.0) mmol/L Calcium 8.0 L (8.4-10.2) mg/dL Magnesium (1.7-2.3) mg/dL Total Bilirubin 5.20 H (0.1-1.2) mg/dL AST 189 H (5-40) units/L ALT 57 H (7-56) units/L Alkaline Phosphatase 619 H (35-129) units/L Total Protein 5.8 L (6.3-8.2) g/dL Albumin 2.7 L (3.9-5) g/dL Acetaminophen (10.0-30.0) ug/mL 02/09/21 02/09/21 02/09/21 Range/Units 08:09 08:09 08:09 MCV (79-97) fl MCH (28-32) pg RDW (13.2-15.2) % Plt Count (140-440) K/mm3 Lymph % (Auto) (13.4-35.0) % [place] % (Auto) (0.0-7.3) % Lymph # (Auto) (1.2-5.4) K/mm3 [place] # (Auto) (0.0-0.8) K/mm3 Seg Neutrophils % (40.0-70.0) % Seg Neutrophils # (1.8-7.7) K/mm3 PT (12.2-14.9) Sec. INR (0.87-1.13) BUN (7-17) mg/dL Creatinine (0.6-1.2) mg/dL Glucose (65-100) mg/dL Lactic Acid 3.30 H* (0.7-2.0) mmol/L Calcium (8.4-10.2) mg/dL Magnesium 1.40 L (1.7-2.3) mg/dL Total Bilirubin (0.1-1.2) mg/dL AST (5-40) units/L ALT (7-56) units/L Alkaline Phosphatase (35-129) units/L Total Protein (6.3-8.2) g/dL Albumin (3.9-5) g/dL Acetaminophen 5.0 L (10.0-30.0) ug/mL 02/09/21 Range/Units 09:23 MCV (79-97) fl MCH (28-32) pg RDW (13.2-15.2) % Plt Count (140-440) K/mm3 Lymph % (Auto) (13.4-35.0) % [place] % (Auto) (0.0-7.3) % Lymph # (Auto) (1.2-5.4) K/mm3 [place] # (Auto) (0.0-0.8) K/mm3 Seg Neutrophils % (40.0-70.0) % Seg Neutrophils # (1.8-7.7) K/mm3 PT (12.2-14.9) Sec. INR (0.87-1.13) BUN (7-17) mg/dL Creatinine (0.6-1.2) mg/dL Glucose (65-100) mg/dL Lactic Acid 3.30 H* (0.7-2.0) mmol/L Calcium (8.4-10.2) mg/dL Magnesium (1.7-2.3) mg/dL Total Bilirubin (0.1-1.2) mg/dL AST (5-40) units/L ALT (7-56) units/L Alkaline Phosphatase (35-129) units/L Total Protein (6.3-8.2) g/dL Albumin (3.9-5) g/dL Acetaminophen (10.0-30.0) ug/mL Assessment and Plan - Patient Problems (1) End stage liver disease Current Visit: Yes Status: Acute Plan to address problem: Supportive care, continue medical management. Patient is not a transplant candidate at this time, continue medical management, alcohol cessation. (2) Cirrhosis Current Visit: Yes Status: Acute Qualifiers: Hepatic cirrhosis type: alcoholic cirrhosis Plan to address problem: Supportive care, patient is not a transplant candidate at this time, continue medical management, GI team consulted. Outpatient GI follow-up. (3) Recurrent right pleural effusion Current Visit: Yes Status: Acute Plan to address problem: Pulmonary team consulted, supportive care, (4) Metabolic encephalopathy Current Visit: Yes Status: Acute Plan to address problem: CT head, neuro check, seizure precaution, aspiration precaution, fall precautions, supportive care. (5) Metabolic acidosis Current Visit: Yes Status: Acute Plan to address problem: BMP, IV fluid resuscitation therapy, supportive care, repeat BMP in a.m. (6) Alcohol dependence Current Visit: Yes Status: Acute Qualifiers: Complication of substance-induced condition: uncomplicated Plan to address problem: CIWA protocol, supportive care, thiamine, folic acid, multivitamin daily (7) Nicotine dependence Current Visit: Yes Status: Acute Qualifiers: Nicotine product type: cigarettes Substance use status: in withdrawal Qualified Code(s): F17.213 - Nicotine dependence, cigarettes, with withdrawal Plan to address problem: Smoking cessation, supportive care. (8) DVT prophylaxis Current Visit: Yes Status: Acute Plan to address problem: SCD to bilateral lower extremities while in bed,
[2021-02-09] MEDS ORDERED: ACETAMINOPHEN 325 MG TAB PO PRN (12:31)
[2021-02-09] MEDS ORDERED: ALBUTEROL 2.5 MG/3 ML NEBU IH PRN (12:31)
[2021-02-09] MEDS ORDERED: ONDANSETRON 4 MG/2 ML INJ IV PRN (12:31)
[2021-02-09] MEDS ORDERED: hydrOXYzine HCL 25 MG TAB PO PRN (12:33)
[2021-02-09] MEDS ORDERED: HYDROCORTISONE 1% CREAM 28.4GM TP PRN (12:33)
[2021-02-09] MEDS ORDERED: ONDANSETRON 4 MG ODT TAB PO PRN (12:33)
[2021-02-09] MEDS ORDERED: IBUPROFEN 200 MG TAB PO PRN (12:42)
[2021-02-09] MEDS ORDERED: SPIRONOLACTONE 25 MG TAB PO ONE (13:00)
--- NOTE | 2021-02-09 15:27 | Consultation ---
History of Present Illness Consult date: 02/09/21 Reason for consult: dyspnea History of present illness: History of present illness: 50 YO Female with ESLD complicated by Cirrhosis, ETOH Dependence, OA, MALENA, Despression, Chronic Pain Syndrome, HTN, Nicotine Dependence presents to ED for evaluation. Patient has diminished cognition and is unable to provide detailed history at the time of my evaluation. Patient history taken from EMS staff, ED staff, as well as patient's family was made available by telephone. As per family the patient has complained of abdominal pain over the past 4 days. EMS was notified and upon arrival the patient was found to be in distress and subsequently transported to [facility] for further care and evaluation of the aforementioned symptoms. The patient was seen and evaluated in the emergency department. All lab and imaging studies reviewed. Patient found to have end- stage liver disease, metabolic acidosis, metabolic encephalopathy, as well as right pleural effusion. Patient placed in observation status and admitted to medical floor. GI team consulted in ED, pulmonary team consulted in ED. No further history is obtainable. Patient has diminished cognition at the time my evaluation but has a positive gag reflex and able to protect her airway without difficulty. No reports of fever, chills, chest pain, palpitation, productive cough, skin rash, recent ill contacts, prolonged travel/immobility, unilateral leg swelling, calf pain, individual/family history of DVT/PE/bleeding/blood clotting disorders, or known exposure to COVID-19. Patient reports having a thoracentesis done last week at [facility]. Results were not available. Past History Past Medical History: arthritis, hypertension, other (See HPI patient has history of alcoholic liver disease and recurrent pleural effusion) Past Surgical History: appendectomy, Social history: , lives with family, smoking, alcohol abuse Family history: hypertension Medications and Allergies Allergies Allergy/AdvReac Type Severity Reaction Status Date / Time No Known Allergies Allergy Verified 10/14/20 07:13 Home Medications Medication Instructions Recorded Confirmed Last Taken Type Betamethasone Dipro 0.05%(Nf) 1 applicatio TP BID 02/09/21 02/09/21 Unknown History [Diprosone 0.05% Oint] DOXYCYCLINE Hyclate 02/09/21 Unknown History DOXYCYCLINE Hyclate [Vibramycin 02/09/21 Unknown History CAP] DOXYCYCLINE Hyclate [Vibramycin 02/09/21 Unknown History CAP] DOXYCYCLINE Hyclate [Vibramycin] 100 mg PO 02/09/21 Unknown History Furosemide [Lasix TAB] 02/09/21 Unknown History Furosemide [Lasix] 20 mg PO QDAY 02/09/21 02/09/21 Unknown History Gabapentin [Neurontin] 400 mg PO Q8HR 02/09/21 02/09/21 Unknown History HYDROcodone/ACETAMINOPHEN 1 each PO 02/09/21 Unknown History [Verdrocet 2.5-325 mg TAB] Hydroxyzine HCl [hydrOXYzine] 50 mg PO 02/09/21 Unknown History Ibuprofen [Motrin 800 MG tab] 02/09/21 Unknown History Ibuprofen [Motrin Ib] 200 mg PO 02/09/21 Unknown History Linezolid [Zyvox] 600 mg PO 02/09/21 Unknown History Oxycodone HCl [oxyCODONE] 10 mg PO 02/09/21 Unknown History Oxycodone HCl/Acetaminophen 1 each PO 02/09/21 Unknown History [Oxycodone-Acetaminophen 10-325] Oxycodone-Acetaminophen 10-325 02/09/21 Unknown History Oxycodone-Acetaminophen 10-325 02/09/21 Unknown History Pantoprazole [Protonix] 40 mg PO QDAY 02/09/21 02/09/21 Unknown History carvediloL 02/09/21 Unknown History hydrOXYzine HCL [Atarax] 25 mg PO 02/09/21 Unknown History predniSONE [Deltasone] 02/09/21 Unknown History Active Meds: Active Medications Acetaminophen (Acetaminophen 325 Mg Tab) 650 mg PO Q4H PRN PRN Reason: Pain MILD(1-3)/Fever >100.5/FAULKNER Albuterol (Albuterol 2.5 Mg/3 Ml Nebu) 2.5 mg IH Q4HRT PRN PRN Reason: Shortness Of Breath Hydrocortisone Acetate (Hydrocortisone 1% Cream 28.4gm) 1 applic TP Q8H PRN PRN Reason: Skin Irritation Hydromorphone HCl (Hydromorphone 1 Mg/1 Ml Inj) 0.5 mg IV Q12H PRN PRN Reason: Pain , Severe (7-10) Hydroxyzine HCl (Hydroxyzine Hcl 25 Mg Tab) 25 mg PO Q6HR PRN PRN Reason: Itching Ibuprofen (Ibuprofen 200 Mg Tab) 200 mg PO Q6H PRN PRN Reason: Pain, Moderate (4-6) Lorazepam (Lorazepam 2 Mg/Ml Vial) 2 mg IV Q1HR PRN PRN Reason: CIWA-Ar 8-15 Last Admin: 02/09/21 09:52 Dose: 2 mg Documented by: Lorazepam (Lorazepam 2 Mg/Ml Vial) 4 mg IV Q1HR PRN PRN Reason: CIWA-Ar 16-25 Lorazepam (Lorazepam 2 Mg/Ml Vial) 4 mg IV Q15MIN PRN PRN Reason: CIWA-Ar >25 Ondansetron HCl (Ondansetron 4 Mg/2 Ml Inj) 4 mg IV Q8H PRN PRN Reason: Nausea And Vomiting Ondansetron HCl (Ondansetron 4 Mg Odt Tab) 4 mg PO Q8HR PRN PRN Reason: Nausea Oxycodone/Acetaminophen (Oxycodone /Acetaminophen 5-325mg Tab) 1 tab PO Q12H PRN PRN Reason: Pain, Moderate (4-6) Sodium Chloride (Sodium Chloride 0.9% 10 Ml Flush Syringe) 10 ml IV BID FOREIGN Sodium Chloride (Sodium Chloride 0.9% 10 Ml Flush Syringe) 10 ml IV PRN PRN PRN Reason: LINE FLUSH Review of Systems All systems: negative Constitutional: weight loss, anorexia, chronic pain Cardiovascular: shortness of breath Gastrointestinal: abdominal pain Integumentary: rash, pruritis Physical Examination Vital signs: Vital Signs Temp Pulse Resp BP Pulse Ox 98.6 F 125 H 18 144/92 95 02/09/21 02:58 02/09/21 02:58 02/09/21 02:58 02/09/21 02:58 02/09/21 02:58 General appearance: appears uncomfortable Eyes: icteric ENT: oropharynx dry Neck: supple, no JVD Effort: normal Ascultation: Right: diminished breath sounds Percussion: Right: dull Cardiovascular: regular rate and rhythm Gastrointestinal: normoactive bowel sounds, soft Integumentary: rash Extremities: no cyanosis Musculoskeletal: no deformities Gait: other (Not tested) normal mental status mood appropriate Results - Laboratory Findings CBC and BMP: 02/09/21 03:50 02/09/21 03:50 PT/INR, D-dimer PT 20.1 Sec. (12.2-14.9) H 02/09/21 08:09 INR 1.65 (0.87-1.13) H 02/09/21 08:09 Abnormal lab findings: Abnormal Labs 02/09/21 02/09/21 02/09/21 03:50 03:50 08:09 MCV 105 H MCH 34 H RDW 21.9 H Plt Count 94 L Lymph % (Auto) 8.0 L [place] % (Auto) 14.1 H Lymph # (Auto) 0.8 L [place] # (Auto) 1.4 H Seg Neutrophils % 77.6 H Seg Neutrophils # 8.0 H PT 20.1 H INR 1.65 H BUN 3 L Creatinine 0.2 L Glucose 135 H Lactic Acid Calcium 8.0 L Magnesium Total Bilirubin 5.20 H AST 189 H ALT 57 H Alkaline Phosphatase 619 H Total Protein 5.8 L Albumin 2.7 L Acetaminophen 02/09/21 02/09/21 02/09/21 08:09 08:09 08:09 MCV MCH RDW Plt Count Lymph % (Auto) [place] % (Auto) Lymph # (Auto) [place] # (Auto) Seg Neutrophils % Seg Neutrophils # PT INR BUN Creatinine Glucose Lactic Acid 3.30 H* Calcium Magnesium 1.40 L Total Bilirubin AST ALT Alkaline Phosphatase Total Protein Albumin Acetaminophen 5.0 L 02/09/21 09:23 MCV MCH RDW Plt Count Lymph % (Auto) [place] % (Auto) Lymph # (Auto) [place] # (Auto) Seg Neutrophils % Seg Neutrophils # PT INR BUN Creatinine Glucose Lactic Acid 3.30 H* Calcium Magnesium Total Bilirubin AST ALT Alkaline Phosphatase Total Protein Albumin Acetaminophen - Diagnostic Findings Chest x-ray: image reviewed (Right-sided pleural effusion) Assessment and Plan Impression: Right-sided pleural effusion most likely hepatohydrothorax. Liver cirrhosis History of alcoholism reports quit drinking 1 year ago Abdominal and back pain Hypokalemia Recommendations: Will order ultrasound guided right thoracentesis. Agree with GI consultation regarding liver cirrhosis and varices
--- NOTE | 2021-02-09 22:49 | Consultation ---
DATE OF CONSULTATION: 02/09/2021 REFERRING PHYSICIAN: Dr. Sinan Barragan. INDICATION: Cirrhosis. HISTORY OF PRESENT ILLNESS: The patient is a 50-year-old white female with history of alcohol dependence with cirrhosis as well as depression, chronic pain syndrome, hypertension, nicotine dependence. The patient presents with diminished cognitation and unable to provide any real detailed history. The patient was complaining of some mid abdominal pain for the last 4-5 days. She was found in distress and subsequently brought to the Emergency Room. The patient reports no recent alcohol use. She denies any bowel changes. The patient subsequently was evaluated by the Emergency Room, admitted and GI consulted. PAST MEDICAL HISTORY: 1. Arthritis. 2. Hypertension. 3. Alcohol cirrhosis. 4. Depression. MEDICATIONS: Reviewed and updated in chart. ALLERGIES: No known drug allergies. SOCIAL HISTORY: Denies alcohol, tobacco or drug abuse. FAMILY HISTORY: Colon cancer. REVIEW OF SYSTEMS: GENERAL: Positive weakness. HEENT: No visual complaints or tinnitus. PULMONARY: Denies shortness of breath, chest pain. GASTROINTESTINAL: Reports abdominal pain. All points of 13-point review of systems otherwise negative. PHYSICAL EXAMINATION: VITAL SIGNS: Temperature of 98.7, pulse 130, respirations 20, blood pressure 146/97. GENERAL: Fairly thin, somewhat disheveled female in no acute distress. HEENT: Pupils round and reactive. PULMONARY: Rhonchi. CARDIOVASCULAR: Regular rhythm. Normal S1, S2. ABDOMEN: Positive bowel sounds, soft. SKIN: No obvious rashes. LABORATORY DATA: Pertinent for white count of 10.3, hemoglobin and hematocrit of 12.8 and 39.1, platelet count of 94. INR of 1.65. Chem-7 within normal limits. AST and ALT of 189 and 57 with alkaline phosphatase of 619 and a total bilirubin of 5.2. IMAGING: CT scan abdomen and pelvis on 02/09/2021 with contrast showed right pleural effusion, cirrhotic changes with evidence of [id number] anasarca. ASSESSMENT AND PLAN: A 50-year-old female with history of alcohol dependence, now presents with decreased mentation with complaints of abdominal pain. The patient's labs suggest she might be drinking alcohol, though she denies. The patient's CT scan showed some anasarca in the beginning, pleural effusion, but otherwise no significant GI pathology at this time. Examination showed no copious apparent ascites. PLAN: 1. Agree with conservative management for alcohol dependence including CIWA protocol, thiamine, folate, and multivitamin. 2. Would check ammonia level to ensure not contributing to her current mental status and consider lactulose based on this result. 3. We will review CT scan. 4. No need for paracentesis at this time as both CT and exam showed no large amount of ascites. 5. Pulmonary and other issues per primary team. 6. No indications for scope at this time. 7. Will follow. Further recommendation based on progress. TID: [id number] RECEIPT: [id number] CAB/SHE
[2021-02-10] MEDS: HYDROmorphone 1 MG/1 ML INJ IV PRN (00:49)
[2021-02-10] MEDS ORDERED: KETOROLAC 30 MG/1 ML INJ IM ONE (07:52)
[2021-02-10 08:09] LABS: Basophils % (Auto) 0.4 % (0.0-1.8); Eosinophils # (Auto) 0.1 K/mm3 (0.0-0.4); Eosinophils % (Auto) 1.9 % (0.0-4.3); Hematocrit 36.3 % (30.3-42.9); Hemoglobin 11.9 gm/dl (10.1-14.3); Lymphocytes # (Auto) 0.8 K/mm3 (1.2-5.4); Lymphocytes % (Auto) 11.3 % (13.4-35.0); Mean Corpuscular HGB Conc 33 % (30-34); Mean Corpuscular Volume 105 fl (79-97); Monocytes # (Auto) 0.8 K/mm3 (0.0-0.8); Monocytes % (Auto) 11.5 % (0.0-7.3); Red Blood Count 3.46 M/mm3 (3.65-5.03)
[2021-02-10 08:29] LABS: Alanine Aminotransferase 39 units/L (7-56); Blood Urea Nitrogen 4 mg/dL (7-17); Calcium 7.7 mg/dL (8.4-10.2); Hemolysis Index 4
[2021-02-10 08:31] LABS: Platelet Count 88 K/mm3 (140-440); Red Cell Distribution Width 21.1 % (13.2-15.2)
[2021-02-10 08:42] LABS: BUN/Creatinine Ratio 20
[2021-02-10] MEDS: oxyCODONE /ACETAMINOPHEN 5-325MG TAB PO PRN (09:21)
--- NOTE | 2021-02-10 12:40 | Progress Note ---
Assessment and Plan Impression: Right-sided pleural effusion most likely hepatohydrothorax. Liver cirrhosis History of alcoholism reports quit drinking 1 year ago Abdominal and back pain Hypokalemia Recommendations: Await ultrasound guided right thoracentesis. Agree with GI consultation regarding liver cirrhosis and varices Subjective Date of service: 02/10/21 Interval history: Continue to complain about back pain abdominal pain patient is n.p.o. wants to drink water complaining of being thirsty. IV fluid has not been started yet. Objective Vital Signs - 12hr 02/10/21 02/10/21 00:48 05:26 Temperature 98.1 F 97.9 F Pulse Rate 117 H 105 H Respiratory 26 H 16 Rate Blood Pressure 126/86 144/95 O2 Sat by Pulse 97 99 Oximetry Constitutional: appears uncomfortable Eyes: icteric ENT: oropharynx dry Neck: supple, no JVD Effort: normal Ascultation: Right: diminished breath sounds Percussion: Right: dull Cardiovascular: regular rate and rhythm Gastrointestinal: normoactive bowel sounds, soft Integumentary: rash Extremities: no cyanosis Neurologic: normal mental status Psychiatric: mood appropriate CBC and BMP: 02/10/21 07:43 02/10/21 07:43 ABG, PT/INR, D-dimer: PT/INR, D-dimer PT 20.1 Sec. (12.2-14.9) H 02/09/21 08:09 INR 1.65 (0.87-1.13) H 02/09/21 08:09 Abnormal lab findings: Abnormal Labs 02/09/21 02/09/21 02/09/21 03:50 03:50 08:09 RBC MCV 105 H MCH 34 H RDW 21.9 H Plt Count 94 L Lymph % (Auto) 8.0 L [place] % (Auto) 14.1 H Lymph # (Auto) 0.8 L [place] # (Auto) 1.4 H Seg Neutrophils % 77.6 H Seg Neutrophils # 8.0 H PT 20.1 H INR 1.65 H BUN 3 L Creatinine 0.2 L Glucose 135 H Lactic Acid Calcium 8.0 L Magnesium Total Bilirubin 5.20 H AST 189 H ALT 57 H Alkaline Phosphatase 619 H Total Protein 5.8 L Albumin 2.7 L Acetaminophen 02/09/21 02/09/21 02/09/21 08:09 08:09 08:09 RBC MCV MCH RDW Plt Count Lymph % (Auto) [place] % (Auto) Lymph # (Auto) [place] # (Auto) Seg Neutrophils % Seg Neutrophils # PT INR BUN Creatinine Glucose Lactic Acid 3.30 H* Calcium Magnesium 1.40 L Total Bilirubin AST ALT Alkaline Phosphatase Total Protein Albumin Acetaminophen 5.0 L 02/09/21 02/09/21 02/10/21 09:23 23:25 07:43 RBC 3.46 L MCV 105 H MCH 34 H RDW 21.1 H Plt Count 88 L Lymph % (Auto) 11.3 L [place] % (Auto) 11.5 H Lymph # (Auto) 0.8 L [place] # (Auto) Seg Neutrophils % 74.9 H Seg Neutrophils # PT INR BUN Creatinine Glucose Lactic Acid 3.30 H* 2.30 H* Calcium Magnesium Total Bilirubin AST ALT Alkaline Phosphatase Total Protein Albumin Acetaminophen 02/10/21 02/10/21 07:43 07:43 RBC MCV MCH RDW Plt Count Lymph % (Auto) [place] % (Auto) Lymph # (Auto) [place] # (Auto) Seg Neutrophils % Seg Neutrophils # PT INR BUN 4 L Creatinine 0.2 L Glucose Lactic Acid 2.30 H* Calcium 7.7 L Magnesium Total Bilirubin 6.10 H AST 95 H ALT Alkaline Phosphatase 461 H Total Protein 4.8 L Albumin 2.0 L Acetaminophen
--- NOTE | 2021-02-10 14:27 | Electrocardiograph Report ---
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
--- NOTE | 2021-02-10 14:27 | Electrocardiograph Report ---
[facility] Test Date: 2021-02-09 Test Time: 03:09:35 Pat Name: MAGY IYER Department: Room: [facility] Gender: F [employer] Attendant: STEPHANIE : 1970 Requested By: ED DOC Order Number: [id number] Reading MD: Az Wade Measurements Intervals [place] Rate: 120 P: 80 CO: 154 QRS: 111 QRSD: 79 T: 72 QT: 324 QTc: 458 Interpretive Statements Sinus tachycardia Probable anteroseptal infarct, old Compared to ECG 01/25/2021 03:23:31 No significant change Electronically Signed On 02-10-2021 14:26:53 EDT by Az Wade
[2021-02-10] MEDS: THIAMINE 100 MG TAB PO SCH (14:41)
[2021-02-10] MEDS: MULTIVITAMINS,THER W-MINERALS TAB PO SCH (14:41)
[2021-02-10] MEDS: FOLIC ACID 1 MG TAB PO SCH (14:41)
[2021-02-10] MEDS: LORazepam 2 MG/ML VIAL IV PRN (14:43)
--- NOTE | 2021-02-10 15:03 | Progress Note ---
Assessment and Plan 50 YO Female with ESLD complicated by Cirrhosis, history of ETOH Dependence, Despression, Chronic Pain Syndrome, HTN, Nicotine Dependence presents to ED with complained of abdominal pain over the past 4 days. The patient was seen and evaluated in the emergency department, found to have end-stage liver disease, metabolic acidosis, metabolic encephalopathy, as well as right pleural effusion. Patient reports having a thoracentesis done last week at [facility]. Results were not available. A/P -- End stage liver disease Supportive care, continue medical management. Patient is not a transplant candidate at this time, GI consulted --Alcoholic cirrhosis Supportive care, patient is not a transplant candidate at this time, continue medical management, GI team consulted. Outpatient GI follow-up. -- Recurrent right pleural effusion Current Visit: Yes Status: Acute Plan to address problem: Pulmonary team consulted, order placed for thoracentesis -- Metabolic encephalopathy CT head w/o acute process, cont neuro check, seizure precaution, aspiration precaution, fall precautions, supportive care. -- Metabolic acidosis, supportive care, repeat BMP in a.m. -- Alcohol dependence Cont CIWA protocol, supportive care, thiamine, folic acid, multivitamin daily -- Nicotine dependence Smoking cessation, supportive care. --Psoriasis, continue home steroid cream -- DVT prophylaxis SCD to bilateral lower extremities while in bed, Daily clinical Course: 02/10/21; continue supportive care, diet as tolerated, monitor LFT, supplemental O2 as needed. Plan for thoracentesis and paracentesis tomorrow. Subjective Date of service: 02/10/21 Interval history: Patient seen and examined. Medical records and medication list reviewed. No acute event overnight noted by the RN. Patient complains of right-sided pleuritic pain and abdominal discomfort Discussed plan of care at bedside with patient. Objective - Exam Narrative Exam: General appearance: Present: mild distress - EENT Eyes: Present: PERRL ENT: clear oral mucosa, hearing decreased - Neck Neck: Present: supple, normal ROM - Respiratory Respiratory effort: normal Respiratory: bilateral: CTA - Cardiovascular Heart Sounds: Present: S1 & S2. Absent: rub, click - Extremities Extremities: pulses symmetrical, No edema Peripheral Pulses: within normal limits - Abdominal General gastrointestinal: Present: soft, tender, non-distended. Absent: splenomegaly, mass - Integumentary Integumentary: Present: Psoriatic rash on hands , ear and both lower extremities - Musculoskeletal Musculoskeletal: generalized weakness - Psychiatric Psychiatric: no appropriate mood/affect, no intact judgment & insight, no memory intact - Neurologic Neurologic: CNII-XII intact, no focal deficits, moves all extremities, no gait normal - Constitutional Vitals: Vital Signs - 12hr 02/10/21 02/10/21 02/10/21 05:26 11:14 14:36 Temperature 97.9 F 98.7 F Pulse Rate 105 H 117 H Respiratory 16 24 Rate Blood Pressure 144/95 130/89 O2 Sat by Pulse 99 90 94 Oximetry - Labs CBC & Chem 7: 02/12/21 06:02 02/12/21 06:02 Labs: Abnormal lab results 02/09/21 02/10/21 02/10/21 Range/Units 23:25 07:43 07:43 RBC 3.46 L (3.65-5.03) M/mm3 MCV 105 H (79-97) fl MCH 34 H (28-32) pg RDW 21.1 H (13.2-15.2) % Plt Count 88 L (140-440) K/mm3 Lymph % (Auto) 11.3 L (13.4-35.0) % [place] % (Auto) 11.5 H (0.0-7.3) % Lymph # (Auto) 0.8 L (1.2-5.4) K/mm3 Seg Neutrophils % 74.9 H (40.0-70.0) % BUN 4 L (7-17) mg/dL Creatinine 0.2 L (0.6-1.2) mg/dL Lactic Acid 2.30 H* (0.7-2.0) mmol/L Calcium 7.7 L (8.4-10.2) mg/dL Total Bilirubin 6.10 H (0.1-1.2) mg/dL AST 95 H (5-40) units/L Alkaline Phosphatase 461 H (35-129) units/L Total Protein 4.8 L (6.3-8.2) g/dL Albumin 2.0 L (3.9-5) g/dL 02/10/21 Range/Units 07:43 RBC (3.65-5.03) M/mm3 MCV (79-97) fl MCH (28-32) pg RDW (13.2-15.2) % Plt Count (140-440) K/mm3 Lymph % (Auto) (13.4-35.0) % [place] % (Auto) (0.0-7.3) % Lymph # (Auto) (1.2-5.4) K/mm3 Seg Neutrophils % (40.0-70.0) % BUN (7-17) mg/dL Creatinine (0.6-1.2) mg/dL Lactic Acid 2.30 H* (0.7-2.0) mmol/L Calcium (8.4-10.2) mg/dL Total Bilirubin (0.1-1.2) mg/dL AST (5-40) units/L Alkaline Phosphatase (35-129) units/L Total Protein (6.3-8.2) g/dL Albumin (3.9-5) g/dL HEART Score - HEART Score Troponin: Troponin T < 0.010 ng/mL (0.00-0.029) 02/09/21 06:31
--- NOTE | 2021-02-10 16:55 | Gastroenterology Progress Note ---
Assessment and Plan GI: pt w/ alcohol cirrhosis presents w/ weakness now pleural effusion - suspect continued alcohol use - Pulmonary input noted, awaiting thoracenthesis - continue CIWA protocol, supportive management - diet as tolerated - no plans to scope at this time - no changes, will follow Subjective Date of service: 02/10/21 Interval history: - no specific GI complaints at this time, somewhat lethargic Objective - Constitutional Vitals: Temp Pulse Resp BP Pulse Ox 98.7 F 117 H 24 130/89 94 02/10/21 11:14 02/10/21 11:14 02/10/21 11:14 02/10/21 11:14 02/10/21 14:36 General appearance: no acute distress - EENT Eyes: PERRL - Respiratory Respiratory: bilateral: rhonchi - Cardiovascular Rhythm: regular Heart Sounds: Present: S1 & S2 - Gastrointestinal General gastrointestinal: Present: soft, non-tender, non-distended - Labs CBC & Chem 7: 02/10/21 07:43 02/10/21 07:43 Labs: Laboratory Results - last 24 hr 02/09/21 02/10/21 02/10/21 23:25 07:43 07:43 WBC 6.7 RBC 3.46 L Hgb 11.9 Hct 36.3 MCV 105 H MCH 34 H MCHC 33 RDW 21.1 H Plt Count 88 L Lymph % (Auto) 11.3 L [place] % (Auto) 11.5 H Eos % (Auto) 1.9 Baso % (Auto) 0.4 Lymph # (Auto) 0.8 L [place] # (Auto) 0.8 Eos # (Auto) 0.1 Baso # (Auto) 0.0 Seg Neutrophils % 74.9 H Seg Neutrophils # 5.0 Sodium 140 Potassium 3.8 Chloride 103.4 Carbon Dioxide 29 Anion Gap 11 BUN 4 L Creatinine 0.2 L Estimated GFR > 60 BUN/Creatinine Ratio 20 Glucose 90 Lactic Acid 2.30 H* Calcium 7.7 L Total Bilirubin 6.10 H AST 95 H ALT 39 Alkaline Phosphatase 461 H Ammonia Total Protein 4.8 L Albumin 2.0 L Albumin/Globulin Ratio 0.7 02/10/21 02/10/21 07:43 07:43 WBC RBC Hgb Hct MCV MCH MCHC RDW Plt Count Lymph % (Auto) [place] % (Auto) Eos % (Auto) Baso % (Auto) Lymph # (Auto) [place] # (Auto) Eos # (Auto) Baso # (Auto) Seg Neutrophils % Seg Neutrophils # Sodium Potassium Chloride Carbon Dioxide Anion Gap BUN Creatinine Estimated GFR BUN/Creatinine Ratio Glucose Lactic Acid 2.30 H* Calcium Total Bilirubin AST ALT Alkaline Phosphatase Ammonia 56.0 Total Protein Albumin Albumin/Globulin Ratio
[2021-02-11] MEDS: LORazepam 2 MG/ML VIAL IV PRN ×3 (03:29→21:08)
[2021-02-11] MEDS: HYDROmorphone 1 MG/1 ML INJ IV PRN ×2 (03:29→11:41)
[2021-02-11] MEDS: oxyCODONE /ACETAMINOPHEN 5-325MG TAB PO PRN ×2 (06:23→21:08)
[2021-02-11] MEDS: FOLIC ACID 1 MG TAB PO SCH (10:00)
[2021-02-11] MEDS: THIAMINE 100 MG TAB PO SCH (10:00)
[2021-02-11] MEDS: MULTIVITAMINS,THER W-MINERALS TAB PO SCH (10:00)
--- NOTE | 2021-02-11 11:21 | Progress Note ---
Assessment and Plan most likely related to underlying liver disease. Ideally if ascities present, this should be drained first and should see improvement in pleural effusion, if persists that can drain. But as long as ascities is present, so will pleural ef fusion be. Will continue to follow. Subjective Date of service: 02/11/21 Interval history: Appears had thora done yesterday? Spoke with nurse and this was not reported to her. Patient currently off floor in CT. No notes from radiology but there is an ultrasound image in the report section. Objective Vital Signs - 12hr 02/11/21 05:00 Temperature 98.8 F Pulse Rate 84 Respiratory 80 H Rate Blood Pressure 165/74 [Left] O2 Sat by Pulse 97 Oximetry Constitutional: appears uncomfortable Eyes: icteric ENT: oropharynx dry Neck: supple, no JVD Effort: normal Ascultation: Right: diminished breath sounds Percussion: Right: dull Cardiovascular: regular rate and rhythm Gastrointestinal: normoactive bowel sounds, soft Integumentary: rash Extremities: no cyanosis Neurologic: normal mental status Psychiatric: mood appropriate CBC and BMP: 02/10/21 07:43 02/10/21 07:43 ABG, PT/INR, D-dimer: PT/INR, D-dimer PT 20.1 Sec. (12.2-14.9) H 02/09/21 08:09 INR 1.65 (0.87-1.13) H 02/09/21 08:09 Abnormal lab findings: Abnormal Labs 02/09/21 02/09/21 02/09/21 03:50 03:50 08:09 RBC MCV 105 H MCH 34 H RDW 21.9 H Plt Count 94 L Lymph % (Auto) 8.0 L [place] % (Auto) 14.1 H Lymph # (Auto) 0.8 L [place] # (Auto) 1.4 H Seg Neutrophils % 77.6 H Seg Neutrophils # 8.0 H PT 20.1 H INR 1.65 H BUN 3 L Creatinine 0.2 L Glucose 135 H Lactic Acid Calcium 8.0 L Magnesium Total Bilirubin 5.20 H AST 189 H ALT 57 H Alkaline Phosphatase 619 H Total Protein 5.8 L Albumin 2.7 L Acetaminophen 02/09/21 02/09/21 02/09/21 08:09 08:09 08:09 RBC MCV MCH RDW Plt Count Lymph % (Auto) [place] % (Auto) Lymph # (Auto) [place] # (Auto) Seg Neutrophils % Seg Neutrophils # PT INR BUN Creatinine Glucose Lactic Acid 3.30 H* Calcium Magnesium 1.40 L Total Bilirubin AST ALT Alkaline Phosphatase Total Protein Albumin Acetaminophen 5.0 L 02/09/21 02/09/21 02/10/21 09:23 23:25 07:43 RBC 3.46 L MCV 105 H MCH 34 H RDW 21.1 H Plt Count 88 L Lymph % (Auto) 11.3 L [place] % (Auto) 11.5 H Lymph # (Auto) 0.8 L [place] # (Auto) Seg Neutrophils % 74.9 H Seg Neutrophils # PT INR BUN Creatinine Glucose Lactic Acid 3.30 H* 2.30 H* Calcium Magnesium Total Bilirubin AST ALT Alkaline Phosphatase Total Protein Albumin Acetaminophen 02/10/21 02/10/21 07:43 07:43 RBC MCV MCH RDW Plt Count Lymph % (Auto) [place] % (Auto) Lymph # (Auto) [place] # (Auto) Seg Neutrophils % Seg Neutrophils # PT INR BUN 4 L Creatinine 0.2 L Glucose Lactic Acid 2.30 H* Calcium 7.7 L Magnesium Total Bilirubin 6.10 H AST 95 H ALT Alkaline Phosphatase 461 H Total Protein 4.8 L Albumin 2.0 L Acetaminophen
--- NOTE | 2021-02-11 11:57 | Procedure Note ---
Date of procedure: 02/11/21 Pre-op diagnosis: large right pleural effusion Post-op diagnosis: same Procedure: US right thoracentesis Findings: large right pleural effusion Anesthesia: local Surgeon: KAREEM MARX Estimated blood loss: none Pathology: list (120cc) Specimen disposition: to lab Condition: stable Disposition: floor
--- NOTE | 2021-02-11 12:00 | Ultrasound Report ---
ULTRASOUND-GUIDED THORACENTESIS HISTORY: right pleural effusion. COMPARISON: Chest x-ray 02/09/2021 PROCEDURE: The risks (including but not limited to bleeding, infection, and pneumothorax) and benefi ts were explained to the patient and informed consent was obtained. A time out procedure was perform ed. Ultrasound was used to evaluate the right pleural effusion and locate the optimal site for needle ent ry. Once the skin was marked, the procedure site was prepped and draped in the usual sterile fashion and lidocaine was used for local anesthesia. A 5 British thoracentesis catheter was placed. The pat ient was monitored closely throughout the procedure, and a total of 2200 mL of clear yellow fluid was aspirated. A decision was made to terminate the procedure at this time due to patient discomfort and coughing. Samples were sent to the lab for further evaluation per the primary clinicians orders. The patient tolerated the procedure well with no complications. A post-procedure chest x-ray was imm ediately ordered. IMPRESSION: Successful thoracentesis as above with a total of 2200 mL of clear yellow fluid aspirated . ULTRASOUND ABDOMEN LIMITED HISTORY: Ascites TECHNIQUE: Transabdominal ultrasound imaging. COMPARISON: CT abdomen pelvis with contrast. FINDINGS: This examination was scheduled as an ultrasound guided paracentesis. All 4 quadrants of the abdomen were scanned. No ascites was demonstrated. There is only trace ascites seen on recent CT abd omen and pelvis. Ultrasound paracentesis was canceled. IMPRESSION: No significant ascites. Ultrasound paracentesis was not performed. Signer Name: Matteo Moran Jr, MD Signed: 02/11/2021 11:56 AM Workstation Name: [id number]
[2021-02-11] MEDS ORDERED: NON-FORMULARY EACH (Hydroxyzine Hcl [Hydroxyzine] 50 MG Tablet) PO PRN (12:51)
[2021-02-11] MEDS ORDERED: NON-FORMULARY EACH (Hydrocodone/Acetaminophen [Hydrocodone-Acetamin 5-300 Mg] 1 EACH Table PO PRN (12:51)
[2021-02-11] MEDS: NICOTINE 14 MG/24 HR PATCH TD SCH (13:00)
[2021-02-11] MEDS ORDERED: FAMOTIDINE 20 MG TAB PO SCH (13:30)
[2021-02-11] MEDS: carvediloL 3.125 MG TAB PO SCH ×2 (13:30→21:42)
--- NOTE | 2021-02-11 13:52 | XRay Report ---
CHEST 1 VIEW 02/11/2021 1:00 PM INDICATION / CLINICAL INFORMATION: large right pleural effusion, recent thora. COMPARISON: February 09, 2021 FINDINGS: SUPPORT DEVICES: None. HEART / MEDIASTINUM: No significant abnormality. LUNGS / PLEURA: There is interval improvement of aeration to the right lung with decreased prominence of a right pleural effusion. There is persistent right lower lobe opacification. No pneumothorax. ADDITIONAL FINDINGS: No significant additional findings. IMPRESSION: 1. Interval improvement post thoracentesis. No pneumothorax. Signer Name: Valdemar Clarke DO Signed: 02/11/2021 1:47 PM Workstation Name: [id number]
[2021-02-11] MEDS: PANTOPRAZOLE 40 MG TAB PO SCH (14:00)
[2021-02-11] MEDS: TRIAMCINOLONE 0.1% CREAM 15 GM TP SCH ×2 (14:00→21:41)
--- NOTE | 2021-02-11 15:08 | Progress Note ---
Assessment and Plan 50 YO Female with ESLD complicated by Cirrhosis, history of ETOH Dependence, Despression, Chronic Pain Syndrome, HTN, Nicotine Dependence presents to ED with complained of abdominal pain over the past 4 days. The patient was seen and evaluated in the emergency department, found to have end-stage liver disease, metabolic acidosis, metabolic encephalopathy, as well as right pleural effusion. Patient reports having a thoracentesis done last week at [facility]. Results were not available. A/P -- End stage liver disease Supportive care, continue medical management. Patient is not a transplant candidate at this time, GI consulted --Alcoholic cirrhosis Supportive care, patient is not a transplant candidate at this time, continue medical management, GI team consulted. Outpatient GI follow-up. -- Recurrent right pleural effusion Pulmonary team consulted, order placed for thoracentesis -- Metabolic encephalopathy CT head w/o acute process, cont neuro check, seizure precaution, aspiration precaution, fall precautions, supportive care. -- Metabolic acidosis, supportive care, repeat BMP in a.m. -- Alcohol dependence Cont CIWA protocol, supportive care, thiamine, folic acid, multivitamin daily -- Nicotine dependence Smoking cessation, supportive care. --Psoriasis, continue home steroid cream -- DVT prophylaxis SCD to bilateral lower extremities while in bed, Daily clinical Course: 02/10/21; continue supportive care, diet as tolerated, monitor LFT, supplemental O2 as needed. Plan for thoracentesis and paracentesis tomorrow. 02/11/21; status post right thoracentesis today drained about 2 L/day fluid. Paracentesis was scheduled but there was not enough fluid to drain. Continue supportive care. Patient continued to complains of generalized pain and right- sided pleuritic pain. Will follow clinically and ordered for PT OT eval Subjective Date of service: 02/11/21 Interval history: Patient seen and examined. Medical records and medication list reviewed. No acute event overnight noted by the RN. Patient cont to complains of right-sided pleuritic pain and abdominal discomfort Status post right thoracentesis today Discussed plan of care at bedside with patient. Objective - Exam Narrative Exam: General appearance: Present: mild distress - EENT Eyes: Present: PERRL ENT: clear oral mucosa, hearing decreased - Neck Neck: Present: supple, normal ROM - Respiratory Respiratory effort: normal Respiratory: bilateral: CTA - Cardiovascular Heart Sounds: Present: S1 & S2. Absent: rub, click - Extremities Extremities: pulses symmetrical, No edema Peripheral Pulses: within normal limits - Abdominal General gastrointestinal: Present: soft, tender, non-distended. Absent: splenomegaly, mass - Integumentary Integumentary: Present: Psoriatic rash on hands , ear and both lower extremities - Musculoskeletal Musculoskeletal: generalized weakness - Psychiatric Psychiatric: no appropriate mood/affect, no intact judgment & insight, no memory intact - Neurologic Neurologic: CNII-XII intact, no focal deficits, moves all extremities, no gait normal - Constitutional Vitals: Vital Signs - 12hr 02/11/21 02/11/21 02/11/21 05:00 08:00 14:36 Temperature 98.8 F 98.1 F Pulse Rate 84 114 H Respiratory 80 H Rate Blood Pressure 165/74 103/65 [Left] O2 Sat by Pulse 97 99 94 Oximetry - Labs CBC & Chem 7: 02/12/21 06:02 02/12/21 06:02 HEART Score - HEART Score Troponin: Troponin T < 0.010 ng/mL (0.00-0.029) 02/09/21 06:31
[2021-02-11 16:05] LABS: Total Cells Counted 100 /mm3
--- NOTE | 2021-02-11 16:13 | Gastroenterology Progress Note ---
Assessment and Plan GI: pt w/ alcohol cirrhosis presents w/ weakness now pleural effusion - suspect continued alcohol use - Pulmonary input noted, s/p thoracenthesis, IR note reviewed - continue CIWA protocol, supportive management - diet as tolerated - no plans to scope at this time - no changes, if stable in am ok to dc from GI standpoint Subjective Date of service: 02/11/21 Interval history: - reports some discomfort after procedure Objective - Constitutional Vitals: Temp Pulse Resp BP Pulse Ox 98.1 F 114 H 80 H 103/65 94 02/11/21 14:36 02/11/21 14:36 02/11/21 05:00 02/11/21 14:36 02/11/21 14:36 General appearance: no acute distress - EENT Eyes: PERRL - Respiratory Respiratory: bilateral: rhonchi - Cardiovascular Rhythm: regular Heart Sounds: Present: S1 & S2 - Gastrointestinal General gastrointestinal: Present: soft, non-tender, non-distended - Labs CBC & Chem 7: 02/10/21 07:43 02/10/21 07:43 Labs: Laboratory Results - last 24 hr 02/10/21 Unknown Fluid Type Pleural Fluid Color Straw Fluid Appearance Clear Fluid WBC 18007 Fluid RBC 0 Fluid Seg Neutrophils 81.0 Fluid Lymphocytes 4.0 Fluid Monocytes 15.0
[2021-02-11] MEDS ORDERED: BETAMETHASONE DIPROPIONATE TP SCH (22:00)
[2021-02-12] MEDS: HYDROmorphone 1 MG/1 ML INJ IV PRN (03:45)
[2021-02-12 07:47] LABS: Hemoglobin 11.2 gm/dl (10.1-14.3); Mean Corpuscular HGB Conc 32 % (30-34); Mean Corpuscular Volume 107 fl (79-97); Platelet Count 177 K/mm3 (140-440); Red Blood Count 3.28 M/mm3 (3.65-5.03)
[2021-02-12 08:01] LABS: Blood Urea Nitrogen 5 mg/dL (7-17); Calcium 7.7 mg/dL (8.4-10.2); Hemolysis Index 2
[2021-02-12 08:02] LABS: BUN/Creatinine Ratio 25; Red Cell Distribution Width 21.9 % (13.2-15.2)
[2021-02-12] MEDS: PANTOPRAZOLE 40 MG TAB PO SCH (08:09)
[2021-02-12 08:19] LABS: Eosinophils # (Auto) 0.2 K/mm3 (0.0-0.4); Eosinophils % (Auto) 2.1 % (0.0-4.3); Monocytes # (Auto) 0.7 K/mm3 (0.0-0.8); Monocytes % (Auto) 9.3 % (0.0-7.3)
--- NOTE | 2021-02-12 09:44 | Progress Note ---
Assessment and Plan 02/12/21: really needs to have space drained completely dry to see if lung will fully re-expand. Suggest asking for repeat thoracentesis. most likely related to underlying liver disease. Ideally if ascities present, this should be drained first and should see improvement in pleural effusion, if persists that can drain. But as long as ascities is present, so will pleural effusion be. Will continue to follow. Subjective Date of service: 02/12/21 Interval history: Had thora done yesterday with 2200 removed. Post thora CXR still shows decent amount of fluid with atelectasis seen on CT of abdomen pelvis before. Still on 2 liters. Objective Vital Signs - 12hr 02/11/21 02/11/21 02/12/21 22:00 22:08 04:23 Temperature 97.5 F L Pulse Rate 87 Pulse Rate [ Right Radial] Respiratory 16 Rate Blood Pressure 91/59 O2 Sat by Pulse 99 96 95 Oximetry 02/12/21 08:37 Temperature Pulse Rate Pulse Rate [ 87 Right Radial] Respiratory 20 Rate Blood Pressure O2 Sat by Pulse 95 Oximetry Constitutional: appears uncomfortable Eyes: icteric ENT: oropharynx dry Neck: supple, no JVD Effort: normal Ascultation: Right: diminished breath sounds Percussion: Right: dull Cardiovascular: regular rate and rhythm Gastrointestinal: normoactive bowel sounds, soft Integumentary: rash Extremities: no cyanosis Neurologic: normal mental status Psychiatric: mood appropriate CBC and BMP: 02/12/21 06:02 02/12/21 06:02 ABG, PT/INR, D-dimer: PT/INR, D-dimer PT 20.1 Sec. (12.2-14.9) H 02/09/21 08:09 INR 1.65 (0.87-1.13) H 02/09/21 08:09 Abnormal lab findings: Abnormal Labs 02/09/21 02/09/21 02/09/21 03:50 03:50 08:09 RBC MCV 105 H MCH 34 H RDW 21.9 H Plt Count 94 L Lymph % (Auto) 8.0 L [place] % (Auto) 14.1 H Lymph # (Auto) 0.8 L [place] # (Auto) 1.4 H Seg Neutrophils % 77.6 H Seg Neutrophils # 8.0 H PT 20.1 H INR 1.65 H Potassium BUN 3 L Creatinine 0.2 L Glucose 135 H Lactic Acid Calcium 8.0 L Magnesium Total Bilirubin 5.20 H AST 189 H ALT 57 H Alkaline Phosphatase 619 H Total Protein 5.8 L Albumin 2.7 L Acetaminophen 02/09/21 02/09/21 02/09/21 08:09 08:09 08:09 RBC MCV MCH RDW Plt Count Lymph % (Auto) [place] % (Auto) Lymph # (Auto) [place] # (Auto) Seg Neutrophils % Seg Neutrophils # PT INR Potassium BUN Creatinine Glucose Lactic Acid 3.30 H* Calcium Magnesium 1.40 L Total Bilirubin AST ALT Alkaline Phosphatase Total Protein Albumin Acetaminophen 5.0 L 02/09/21 02/09/21 02/10/21 09:23 23:25 07:43 RBC 3.46 L MCV 105 H MCH 34 H RDW 21.1 H Plt Count 88 L Lymph % (Auto) 11.3 L [place] % (Auto) 11.5 H Lymph # (Auto) 0.8 L [place] # (Auto) Seg Neutrophils % 74.9 H Seg Neutrophils # PT INR Potassium BUN Creatinine Glucose Lactic Acid 3.30 H* 2.30 H* Calcium Magnesium Total Bilirubin AST ALT Alkaline Phosphatase Total Protein Albumin Acetaminophen 02/10/21 02/10/21 02/12/21 07:43 07:43 06:02 RBC 3.28 L MCV 107 H MCH 34 H RDW 21.9 H Plt Count Lymph % (Auto) [place] % (Auto) 9.3 H Lymph # (Auto) [place] # (Auto) Seg Neutrophils % 74.0 H Seg Neutrophils # PT INR Potassium BUN 4 L Creatinine 0.2 L Glucose Lactic Acid 2.30 H* Calcium 7.7 L Magnesium Total Bilirubin 6.10 H AST 95 H ALT Alkaline Phosphatase 461 H Total Protein 4.8 L Albumin 2.0 L Acetaminophen 02/12/21 06:02 RBC MCV MCH RDW Plt Count Lymph % (Auto) [place] % (Auto) Lymph # (Auto) [place] # (Auto) Seg Neutrophils % Seg Neutrophils # PT INR Potassium 3.5 L BUN 5 L Creatinine 0.2 L Glucose Lactic Acid Calcium 7.7 L Magnesium Total Bilirubin AST ALT Alkaline Phosphatase Total Protein Albumin Acetaminophen
[2021-02-12] MEDS ORDERED: PANTOPRAZOLE SODIUM 40 MG PO SCH (10:00)
[2021-02-12] MEDS: carvediloL 3.125 MG TAB PO SCH ×2 (10:27→22:54)
[2021-02-12] MEDS: THIAMINE 100 MG TAB PO SCH (10:27)
[2021-02-12] MEDS: MULTIVITAMINS,THER W-MINERALS TAB PO SCH (10:27)
[2021-02-12] MEDS: FOLIC ACID 1 MG TAB PO SCH (10:27)
[2021-02-12] MEDS: NICOTINE 14 MG/24 HR PATCH TD SCH (10:27)
[2021-02-12] MEDS: TRIAMCINOLONE 0.1% CREAM 15 GM TP SCH ×2 (10:28→23:55)
[2021-02-12] MEDS: LORazepam 2 MG/ML VIAL IV PRN (11:07)
--- NOTE | 2021-02-12 11:57 | Procedure Note ---
Date of procedure: 02/12/21 Pre-op diagnosis: right pleural effusion Post-op diagnosis: same Procedure: US thoracentesis, right Findings: moderate right pl eff Anesthesia: local Surgeon: KAREEM MARX Estimated blood loss: none Pathology: none Specimen disposition: discarded Condition: stable Disposition: floor
[2021-02-12 12:41] LABS: Anisocytosis 1+; Band Neutrophils # (Manual) 0.1 K/mm3; Total Cells Counted 100
[2021-02-12 12:43] LABS: Macrocytosis 2+; Platelet Estimate Consistent w Auto; Toxic Granulation 1+
--- NOTE | 2021-02-12 13:39 | Ultrasound Report ---
Ultrasound-guided thoracentesis HISTORY: Right pleural effusion. PROCEDURE: The risks (including but not limited to bleeding, infection, and pneumothorax) and benefi ts were explained to the patient and informed consent was obtained. A time out procedure was perform ed. Ultrasound was used to evaluate the right pleural effusion and locate the optimal site for needle ent ry. Once the skin was marked, the procedure site was prepped and draped in the usual sterile fashion and lidocaine was used for local anesthesia. A skin daja was made and a 6-Ind[place]ian thoracentesis cath eter was placed. The patient was monitored closely throughout the procedure, and a total of 1400 mL of clear yellow fluid was aspirated. No labs were ordered. The patient tolerated the procedure well with no complications. A post-procedure chest x-ray was imm ediately ordered. IMPRESSION: Successful thoracentesis as above with a total of 1400 mL of yellow fluid aspirated. Signer Name: Matteo Moran Jr, MD Signed: 02/12/2021 1:35 PM Workstation Name: [id number]
--- NOTE | 2021-02-12 14:01 | XRay Report ---
CHEST 1 VIEW INDICATION / CLINICAL INFORMATION: Shortness of breath, right pleural effusion, status post thoracentesis. COMPARISON: 02/11/2021. FINDINGS: SUPPORT DEVICES: None. HEART / MEDIASTINUM: No significant abnormality. LUNGS / PLEURA: Interval resolution of right pleural effusion status post thoracentesis. A few small right lower lobe predominant densities are present, possibly small area of residual atelectasis. No s ignificant pneumothorax. ADDITIONAL FINDINGS: No significant additional findings. IMPRESSION: Interval resolution of right pleural effusion status post thoracentesis. A few small right lower lobe predominant densities are present, possibly small area of residual atelectasis. No significant pneum othorax. Signer Name: Jonny Urias MD Signed: 02/12/2021 1:56 PM Workstation Name: [id number]
--- NOTE | 2021-02-12 14:09 | Gastroenterology Progress Note ---
Assessment and Plan Liver: pt w/ cirrhosis now w/ pleural effusison - pt s/p 2nd paracenthesis today, IR note reviewded - pt w/ minimal ascites on recent ct and ultrasound - would continue diuretics - CIWA protocol - if stable and when cleared by Pulm ok to dc - no plans to scope or other intervention form GI standpoint - will follow Subjective Date of service: 02/12/21 Interval history: - somewhat weak appearing but no specific complaints. Objective - Constitutional Vitals: Temp Pulse Resp BP Pulse Ox 97.5 F L 87 20 91/59 98 02/12/21 04:23 02/12/21 10:27 02/12/21 08:37 02/12/21 04:23 02/12/21 10:00 General appearance: no acute distress - EENT Eyes: PERRL - Respiratory Respiratory: bilateral: CTA - Cardiovascular Rhythm: regular Heart Sounds: Present: S1 & S2 - Labs CBC & Chem 7: 02/12/21 06:02 02/12/21 06:02 Labs: Laboratory Results - last 24 hr 02/10/21 02/12/21 02/12/21 Unknown 06:02 06:02 WBC 8.0 RBC 3.28 L Hgb 11.2 Hct 35.0 MCV 107 H MCH 34 H MCHC 32 RDW 21.9 H Plt Count 177 D [place] % (Auto) 9.3 H Eos % (Auto) 2.1 [place] # (Auto) 0.7 Eos # (Auto) 0.2 Baso # (Auto) 0.0 Add Manual Diff Complete Total Counted 100 Seg Neutrophils % 74.0 H Seg Neuts % (Manual) 90.0 H Band Neutrophils % 1.0 Lymphocytes % (Manual) 3.0 L Monocytes % (Manual) 4.0 Eosinophils % (Manual) 1.0 Basophils % (Manual) 1.0 Nucleated RBC % Not Reportable Seg Neutrophils # 5.5 Seg Neutrophils # Man 7.2 Band Neutrophils # 0.1 Lymphocytes # (Manual) 0.2 L Abs React Lymphs (Man) 0.0 Monocytes # (Manual) 0.3 Eosinophils # (Manual) 0.1 Basophils # (Manual) 0.1 Metamyelocytes # 0.0 Myelocytes # 0.0 Promyelocytes # 0.0 Blast Cells # 0.0 WBC Morphology Not Reportable Hypersegmented Neuts Not Reportable Hyposegmented Neuts Not Reportable Hypogranular Neuts Not Reportable Smudge Cells Not Reportable Toxic Granulation 1+ Toxic Vacuolation Not Reportable Dohle Bodies Not Reportable Pelger-Huet Anomaly Not Reportable [place] Rods Not Reportable Platelet Estimate Consistent w auto Clumped Platelets Not Reportable Plt Clumps, EDTA Not Reportable Large Platelets Not Reportable Giant Platelets Not Reportable Platelet Satelliting Not Reportable Plt Morphology Comment Not Reportable RBC Morphology Not Reportable Dimorphic RBCs Not Reportable Polychromasia Not Reportable Hypochromasia Not Reportable Poikilocytosis Not Reportable Anisocytosis 1+ Microcytosis Not Reportable Macrocytosis 2+ Spherocytes Not Reportable Pappenheimer Bodies Not Reportable Sickle Cells Not Reportable Target Cells Not Reportable Tear Drop Cells Not Reportable Ovalocytes Not Reportable Helmet Cells Not Reportable Arnett-Mccune Bodies Not Reportable [place] Rings Not Reportable [place] Cells Not Reportable Bite Cells Not Reportable Crenated Cell Not Reportable Elliptocytes Not Reportable Acanthocytes (Spur) Not Reportable Rouleaux Not Reportable Hemoglobin C Crystals Not Reportable Schistocytes Not Reportable Malaria parasites Not Reportable [place]angel Bodies Not Reportable Hem Pathologist Commnt No Sodium 142 Potassium 3.5 L Chloride 105.6 Carbon Dioxide 29 Anion Gap 11 BUN 5 L Creatinine 0.2 L Estimated GFR > 60 BUN/Creatinine Ratio 25 Glucose 90 Calcium 7.7 L Fluid Type Pleural Fluid Color Straw Fluid Appearance Clear Fluid WBC 02419 Fluid RBC 0 Fluid Seg Neutrophils 81.0 Fluid Lymphocytes 4.0 Fluid Monocytes 15.0
--- NOTE | 2021-02-12 15:08 | Discharge Summary ---
Providers - Providers Date of Admission: 02/11/21 13:20 Date of discharge: 02/12/21 Attending physician: MARGARITA ROMAN 02/09/21 08:01 Consult to Physician [CONS] Urgent Comment: Consulting Provider: BOBY CARL Physician Instructions: Reason For Exam: abd pain transaminits 02/09/21 09:20 Consult to Physician [CONS] Urgent Comment: Consulting Provider: ALEXEY MCFARLAND Physician Instructions: Reason For Exam: pleural effusion 02/10/21 08:06 Consult to Wound/ET Nurse [CONS] Routine Reason For Exam: wound eval 02/11/21 15:07 Physical Therapy Evaluation and Treat [CONS] Routine Comment: Reason For Exam: Debility Primary care physician: BRICK GRADER Hospitalization Condition: Serious Hospital course: 50 YO Female with ESLD complicated by Cirrhosis, history of ETOH Dependence, Despression, Chronic Pain Syndrome, HTN, Nicotine Dependence presents to ED with complained of abdominal pain over the past 4 days. The patient was seen and evaluated in the emergency department, found to have end-stage liver disease, metabolic acidosis, metabolic encephalopathy, as well as right pleural effusion. Patient reports having a thoracentesis done last week at [facility]. Results were not available. Daily clinical Course: 02/10/21; continue supportive care, diet as tolerated, monitor LFT, supplemental O2 as needed. Plan for thoracentesis and paracentesis tomorrow. 02/11/21; status post right thoracentesis today drained about 2 L/day fluid. Paracentesis was scheduled but there was not enough fluid to drain. Continue supportive care. Patient continued to complains of generalized pain and right- sided pleuritic pain. Will follow clinically and ordered for PT OT eval 02/12/21; patient clinically remains stable, GI and pulmonary cleared for discharge. Patient will be discharged home with home health. Patient will follow up with GI in 1 week. A/P -- End stage liver disease Supportive care, continue medical management. Patient is not a transplant candidate at this time, GI consulted --Alcoholic cirrhosis Supportive care, patient is not a transplant candidate at this time, continue medical management, GI team consulted. Outpatient GI follow-up. -- Recurrent right pleural effusion Pulmonary team consulted, order placed for thoracentesis -- Metabolic encephalopathy CT head w/o acute process, cont neuro check, seizure precaution, aspiration precaution, fall precautions, supportive care. -- Metabolic acidosis, supportive care, repeat BMP in a.m. -- Alcohol dependence Cont CIWA protocol, supportive care, thiamine, folic acid, multivitamin daily -- Nicotine dependence Smoking cessation, supportive care. --Psoriasis, continue home steroid cream -- DVT prophylaxis SCD to bilateral lower extremities while in bed Disposition: DC-30 STILL A PATIENT Time spent for discharge: 34 minutes Core Measure Documentation - Palliative Care Palliative Care/ Comfort Measures: Not Applicable - Core Measures Any of the following diagnoses?: none Exam - Physical Exam Narrative exam: General appearance: Present: mild distress - EENT Eyes: Present: PERRL ENT: clear oral mucosa, hearing decreased - Neck Neck: Present: supple, normal ROM - Respiratory Respiratory effort: normal Respiratory: bilateral: CTA - Cardiovascular Heart Sounds: Present: S1 & S2. Absent: rub, click - Extremities Extremities: pulses symmetrical, No edema Peripheral Pulses: within normal limits - Abdominal General gastrointestinal: Present: soft, tender, non-distended. Absent: splenomegaly, mass - Integumentary Integumentary: Present: Psoriatic rash on hands , ear and both lower extremities - Musculoskeletal Musculoskeletal: generalized weakness - Psychiatric Psychiatric: no appropriate mood/affect, no intact judgment & insight, no memory intact - Neurologic Neurologic: CNII-XII intact, no focal deficits, moves all extremities, no gait normal - Constitutional Vitals: Temp Pulse Resp BP Pulse Ox 97.5 F L 87 20 91/59 98 02/12/21 04:23 02/12/21 10:27 02/12/21 08:37 02/12/21 04:23 02/12/21 10:00 Plan Activity: fall precautions Weight Bearing Status: Weight Bear as Tolerated Diet: advance as tolerated Wound: keep clean and dry Follow up with: PRIMARY CAREMD [Primary Care Provider] - 3-5 Days LISA SIFUENTES MD [Staff Physician] - 7 Days Prescriptions: Folic Acid [Folvite] 1 mg PO DAILY #30 tablet hydrOXYzine PAMOATE [Vistaril] 50 mg PO Q8H PRN #30 capsule PRN Reason: Itching Thiamine [Vitamin B-1] 100 mg PO QDAY #30 tablet
--- NOTE | 2021-02-12 16:07 | Progress Note ---
Assessment and Plan 50 YO Female with ESLD complicated by Cirrhosis, history of ETOH Dependence, Despression, Chronic Pain Syndrome, HTN, Nicotine Dependence presents to ED with complained of abdominal pain over the past 4 days. The patient was seen and evaluated in the emergency department, found to have end-stage liver disease, metabolic acidosis, metabolic encephalopathy, as well as right pleural effusion. Patient reports having a thoracentesis done last week at [facility]. Results were not available. A/P -- End stage liver disease Supportive care, continue medical management. Patient is not a transplant candidate at this time, GI consulted --Alcoholic cirrhosis Supportive care, patient is not a transplant candidate at this time, continue medical management, GI team consulted. Outpatient GI follow-up. -- Recurrent right pleural effusion Pulmonary team consulted, order placed for thoracentesis --acute hypoxic respiratory failure due to large pleural effusion, ordered for thoracentesis -- Metabolic encephalopathy CT head w/o acute process, cont neuro check, seizure precaution, aspiration p recaution, fall precautions, supportive care. -- Metabolic acidosis, supportive care, repeat BMP in a.m. -- Alcohol dependence Cont CIWA protocol, supportive care, thiamine, folic acid, multivitamin daily -- Nicotine dependence Smoking cessation, supportive care. --Psoriasis, continue home steroid cream -- DVT prophylaxis SCD to bilateral lower extremities while in bed, Daily clinical Course: 02/10/21; continue supportive care, diet as tolerated, monitor LFT, supplemental O2 as needed. Plan for thoracentesis and paracentesis tomorrow. 02/11/21; status post right thoracentesis today drained about 2 L/day fluid. Paracentesis was scheduled but there was not enough fluid to drain. Continue supportive care. Patient continued to complains of generalized pain and right- sided pleuritic pain. Will follow clinically and ordered for PT OT eval 02/12/21: had another thoracentesis today drained another liter of pleural fluid. pt became lethargic following the procedure and had a brief episode of respiratory distress. will cont to monitor. plan to d/c when stable pulmonary jamison. Subjective Date of service: 02/12/21 Interval history: Patient seen and examined. Medical records and medication list reviewed. No acute event overnight noted by the RN. Patient appears lethargic, PT eval pending Status post second right thoracentesis today Discussed plan of care at bedside with patient's RN. Objective - Exam Narrative Exam: General appearance: Present: mild distress - EENT Eyes: Present: PERRL ENT: clear oral mucosa, hearing decreased - Neck Neck: Present: supple, normal ROM - Respiratory Respiratory effort: normal Respiratory: bilateral: CTA - Cardiovascular Heart Sounds: Present: S1 & S2. Absent: rub, click - Extremities Extremities: pulses symmetrical, No edema Peripheral Pulses: within normal limits - Abdominal General gastrointestinal: Present: soft, tender, non-distended. Absent: splenomegaly, mass - Integumentary Integumentary: Present: Psoriatic rash on hands , ear and both lower extremities - Musculoskeletal Musculoskeletal: generalized weakness - Psychiatric Psychiatric: no appropriate mood/affect, no intact judgment & insight, no memory intact - Neurologic Neurologic: CNII-XII intact, no focal deficits, moves all extremities, no gait normal - Constitutional Vitals: Vital Signs - 12hr 02/12/21 02/12/21 02/12/21 04:23 08:37 10:00 Temperature 97.5 F L Pulse Rate 87 Pulse Rate [ 87 Right Radial] Respiratory 16 20 Rate Blood Pressure 91/59 O2 Sat by Pulse 95 95 98 Oximetry 02/12/21 10:27 Temperature Pulse Rate 87 Pulse Rate [ Right Radial] Respiratory Rate Blood Pressure O2 Sat by Pulse Oximetry - Labs CBC & Chem 7: 02/12/21 06:02 02/12/21 06:02 Labs: Abnormal lab results 02/12/21 02/12/21 Range/Units 06:02 06:02 RBC 3.28 L (3.65-5.03) M/mm3 MCV 107 H (79-97) fl MCH 34 H (28-32) pg RDW 21.9 H (13.2-15.2) % [place] % (Auto) 9.3 H (0.0-7.3) % Seg Neutrophils % 74.0 H (40.0-70.0) % Seg Neuts % (Manual) 90.0 H (40.0-70.0) % Lymphocytes % (Manual) 3.0 L (13.4-35.0) % Lymphocytes # (Manual) 0.2 L (1.2-5.4) K/mm3 Potassium 3.5 L (3.6-5.0) mmol/L BUN 5 L (7-17) mg/dL Creatinine 0.2 L (0.6-1.2) mg/dL Calcium 7.7 L (8.4-10.2) mg/dL HEART Score - HEART Score Troponin: Troponin T < 0.010 ng/mL (0.00-0.029) 02/09/21 06:31
[2021-02-12] MEDS: HYDROcodone/ACETAMINOPHEN 5-325 MG TAB PO PRN (23:26)
[2021-02-13] MEDS: PANTOPRAZOLE 40 MG TAB PO SCH (07:24)
[2021-02-13] MEDS: oxyCODONE /ACETAMINOPHEN 5-325MG TAB PO PRN (07:24)
--- NOTE | 2021-02-13 09:35 | Progress Note ---
Assessment and Plan 02/13/21: Wean FiO2 to off. Suggest walk test prior to discharge. Will sign off. 02/12/21: really needs to have space drained completely dry to see if lung will fully re-expand. Suggest asking for repeat thoracentesis. most likely related to underlying liver disease. Ideally if ascities present, this should be drained first and should see improvement in pleural effusion, if persists that can drain. But as long as ascities is present, so will pleural effusion be. Will continue to follow. Subjective Date of service: 02/13/21 Interval history: Patient had repeat thora on yesterday. 1400 cc's removed and now lung has fully re-expanded. No evidence of mass seen on CXR. no indication for CT of chest. Objective Vital Signs - 12hr 02/12/21 02/13/21 02/13/21 21:47 04:31 07:24 Temperature 98.2 F 97.6 F Pulse Rate 103 H Respiratory 16 16 20 Rate Blood Pressure 114/70 101/69 O2 Sat by Pulse 97 Oximetry 02/13/21 08:16 Temperature Pulse Rate Respiratory 20 Rate Blood Pressure O2 Sat by Pulse 97 Oximetry Constitutional: appears uncomfortable Eyes: icteric ENT: oropharynx dry Neck: supple, no JVD Effort: normal Ascultation: Right: diminished breath sounds Percussion: Right: dull Cardiovascular: regular rate and rhythm Gastrointestinal: normoactive bowel sounds, soft Integumentary: rash Extremities: no cyanosis Neurologic: normal mental status Psychiatric: mood appropriate CBC and BMP: 02/12/21 06:02 02/12/21 06:02 ABG, PT/INR, D-dimer: PT/INR, D-dimer PT 20.1 Sec. (12.2-14.9) H 02/09/21 08:09 INR 1.65 (0.87-1.13) H 02/09/21 08:09 Abnormal lab findings: Abnormal Labs 02/09/21 02/09/21 02/09/21 03:50 03:50 08:09 RBC MCV 105 H MCH 34 H RDW 21.9 H Plt Count 94 L Lymph % (Auto) 8.0 L [place] % (Auto) 14.1 H Lymph # (Auto) 0.8 L [place] # (Auto) 1.4 H Seg Neutrophils % 77.6 H Seg Neuts % (Manual) Lymphocytes % (Manual) Seg Neutrophils # 8.0 H Lymphocytes # (Manual) PT 20.1 H INR 1.65 H Potassium BUN 3 L Creatinine 0.2 L Glucose 135 H Lactic Acid Calcium 8.0 L Magnesium Total Bilirubin 5.20 H AST 189 H ALT 57 H Alkaline Phosphatase 619 H Total Protein 5.8 L Albumin 2.7 L Acetaminophen 02/09/21 02/09/21 02/09/21 08:09 08:09 08:09 RBC MCV MCH RDW Plt Count Lymph % (Auto) [place] % (Auto) Lymph # (Auto) [place] # (Auto) Seg Neutrophils % Seg Neuts % (Manual) Lymphocytes % (Manual) Seg Neutrophils # Lymphocytes # (Manual) PT INR Potassium BUN Creatinine Glucose Lactic Acid 3.30 H* Calcium Magnesium 1.40 L Total Bilirubin AST ALT Alkaline Phosphatase Total Protein Albumin Acetaminophen 5.0 L 02/09/21 02/09/21 02/10/21 09:23 23:25 07:43 RBC 3.46 L MCV 105 H MCH 34 H RDW 21.1 H Plt Count 88 L Lymph % (Auto) 11.3 L [place] % (Auto) 11.5 H Lymph # (Auto) 0.8 L [place] # (Auto) Seg Neutrophils % 74.9 H Seg Neuts % (Manual) Lymphocytes % (Manual) Seg Neutrophils # Lymphocytes # (Manual) PT INR Potassium BUN Creatinine Glucose Lactic Acid 3.30 H* 2.30 H* Calcium Magnesium Total Bilirubin AST ALT Alkaline Phosphatase Total Protein Albumin Acetaminophen 02/10/21 02/10/21 02/12/21 07:43 07:43 06:02 RBC 3.28 L MCV 107 H MCH 34 H RDW 21.9 H Plt Count Lymph % (Auto) [place] % (Auto) 9.3 H Lymph # (Auto) [place] # (Auto) Seg Neutrophils % 74.0 H Seg Neuts % (Manual) 90.0 H Lymphocytes % (Manual) 3.0 L Seg Neutrophils # Lymphocytes # (Manual) 0.2 L PT INR Potassium BUN 4 L Creatinine 0.2 L Glucose Lactic Acid 2.30 H* Calcium 7.7 L Magnesium Total Bilirubin 6.10 H AST 95 H ALT Alkaline Phosphatase 461 H Total Protein 4.8 L Albumin 2.0 L Acetaminophen 02/12/21 06:02 RBC MCV MCH RDW Plt Count Lymph % (Auto) [place] % (Auto) Lymph # (Auto) [place] # (Auto) Seg Neutrophils % Seg Neuts % (Manual) Lymphocytes % (Manual) Seg Neutrophils # Lymphocytes # (Manual) PT INR Potassium 3.5 L BUN 5 L Creatinine 0.2 L Glucose Lactic Acid Calcium 7.7 L Magnesium Total Bilirubin AST ALT Alkaline Phosphatase Total Protein Albumin Acetaminophen
[2021-02-13] MEDS: NICOTINE 14 MG/24 HR PATCH TD SCH (11:26)
[2021-02-13] MEDS: THIAMINE 100 MG TAB PO SCH (11:26)
[2021-02-13] MEDS: FOLIC ACID 1 MG TAB PO SCH (11:26)
[2021-02-13] MEDS: MULTIVITAMINS,THER W-MINERALS TAB PO SCH (11:26)
[2021-02-13] MEDS: carvediloL 3.125 MG TAB PO SCH (11:26)
[2021-02-13] MEDS: TRIAMCINOLONE 0.1% CREAM 15 GM TP SCH (11:27)
[2021-02-13] MEDS: LORazepam 2 MG/ML VIAL IV PRN (14:09)
--- NOTE | 2021-02-13 14:38 | Gastroenterology Progress Note ---
Assessment and Plan Liver: pt w/ cirrhosis now w/ pleural effusion - pt s/p 2nd paracenthesis yesterday, IR note reviewed - pt w/ minimal ascites on recent ct and ultrasound - would continue diuretics - CIWA protocol - if stable and when cleared by Pulm ok to dc - no plans to scope or other intervention form GI standpoint - will sign off, call if needed Subjective Date of service: 02/13/21 Interval history: - no GI/liver complaints overnight Objective - Constitutional Vitals: Temp Pulse Resp BP Pulse Ox 97.6 F 89 22 102/65 100 02/13/21 11:33 02/13/21 11:33 02/13/21 11:33 02/13/21 11:33 02/13/21 11:33 General appearance: no acute distress - EENT Eyes: PERRL - Respiratory Respiratory: bilateral: CTA - Cardiovascular Rhythm: regular Heart Sounds: Present: S1 & S2 - Gastrointestinal General gastrointestinal: Present: soft, non-tender, non-distended - Labs CBC & Chem 7: 02/12/21 06:02 02/12/21 06:02 Labs: Laboratory Results - last 24 hr 02/11/21 03:16 Nasal Screen MRSA (PCR) Negative
--- NOTE | 2021-02-13 16:31 | Progress Note ---
Assessment and Plan 50 YO Female with ESLD complicated by Cirrhosis, history of ETOH Dependence, Despression, Chronic Pain Syndrome, HTN, Nicotine Dependence presents to ED with complained of abdominal pain over the past 4 days. The patient was seen and evaluated in the emergency department, found to have end-stage liver disease, metabolic acidosis, metabolic encephalopathy, as well as right pleural effusion. Patient reports having a thoracentesis done last week at [facility]. Results were not available. Admitted for further evaluation. A/P -- End stage liver disease Supportive care, continue medical management. Patient is not a transplant candidate at this time, GI consulted --Alcoholic cirrhosis Supportive care, patient is not a transplant candidate at this time, continue medical management, GI team consulted. Outpatient GI follow-up. -- Recurrent right pleural effusion Pulmonary team consulted, order placed for thoracentesis --acute hypoxic respiratory failure due to large pleural effusion, ordered for thoracentesis -- Metabolic encephalopathy CT head w/o acute process, cont neuro check, seizure precaution, aspiration precaution, fall precautions, supportive care. -- Metabolic acidosis, supportive care, repeat BMP in a.m. -- Alcohol dependence Cont CIWA protocol, supportive care, thiamine, folic acid, multivitamin daily -- Nicotine dependence Smoking cessation, supportive care. --Psoriasis, continue home steroid cream -- DVT prophylaxis SCD to bilateral lower extremities while in bed, Daily clinical Course: 02/10/21; continue supportive care, diet as tolerated, monitor LFT, supplemental O2 as needed. Plan for thoracentesis and paracentesis tomorrow. 02/11/21; status post right thoracentesis today drained about 2 L/day fluid. Paracentesis was scheduled but there was not enough fluid to drain. Continue supportive care. Patient continued to complains of generalized pain and right- sided pleuritic pain. Will follow clinically and ordered for PT OT eval 02/12/21: had another thoracentesis today drained another liter of pleural fluid. pt became lethargic following the procedure and had a brief episode of respiratory distress. will cont to monitor. plan to d/c when stable pulmonary jamison. 02/13/21: Patient was agitated earlier today- got one dose of ativan and remains lethargic sleepy. Stop ativan and placed on haldol as needed. PT eval pending Subjective Date of service: 02/13/21 Interval history: Patient seen and examined. Medical records and medication list reviewed. No acute event overnight noted by the RN. Patient appears lethargic, final PT recommendation pending Patient was agitated earlier today Discussed plan of care at bedside with patient's RN. Objective - Exam Narrative Exam: General appearance: Present: no distress-sleeping - EENT Eyes: Present: PERRL ENT: clear oral mucosa, hearing decreased - Neck Neck: Present: supple, normal ROM - Respiratory Respiratory effort: normal Respiratory: bilateral: CTA - Cardiovascular Heart Sounds: Present: S1 & S2. Absent: rub, click - Extremities Extremities: pulses symmetrical, No edema Peripheral Pulses: within normal limits - Abdominal General gastrointestinal: Present: soft, tender, non-distended. Absent: splenomegaly, mass - Integumentary Integumentary: Present: Psoriatic rash on hands , ear and both lower extremities - Musculoskeletal Musculoskeletal: generalized weakness - Psychiatric Psychiatric: no appropriate mood/affect, no intact judgment & insight, - Neurologic Neurologic: CNII-XII intact, no focal deficits, moves all extremities, no gait normal - Constitutional Vitals: Vital Signs - 12hr 02/13/21 02/13/21 02/13/21 07:24 08:16 10:00 Temperature Pulse Rate Respiratory 20 20 Rate Blood Pressure O2 Sat by Pulse 97 96 Oximetry 02/13/21 11:33 Temperature 97.6 F Pulse Rate 89 Respiratory 22 Rate Blood Pressure 102/65 O2 Sat by Pulse 100 Oximetry - Labs CBC & Chem 7: 02/12/21 06:02 02/12/21 06:02 HEART Score - HEART Score Troponin: Troponin T < 0.010 ng/mL (0.00-0.029) 02/09/21 06:31
[2021-02-13] MEDS ORDERED: HALOPERIDOL LACTATE 5 MG/1 ML INJ IM PRN (16:32)
[2021-02-13] MEDS: HYDROcodone/ACETAMINOPHEN 5-325 MG TAB PO PRN (21:48)
[2021-02-14] MEDS: TRIAMCINOLONE 0.1% CREAM 15 GM TP SCH ×2 (00:01→10:30)
[2021-02-14] MEDS: HYDROcodone/ACETAMINOPHEN 5-325 MG TAB PO PRN ×2 (06:22→16:19)
[2021-02-14 07:38] LABS: Basophils % (Auto) 0.6 % (0.0-1.8); Eosinophils # (Auto) 0.2 K/mm3 (0.0-0.4); Eosinophils % (Auto) 2.3 % (0.0-4.3); Hematocrit 38.6 % (30.3-42.9); Hemoglobin 12.5 gm/dl (10.1-14.3); Lymphocytes # (Auto) 0.8 K/mm3 (1.2-5.4); Mean Corpuscular HGB Conc 32 % (30-34); Mean Corpuscular Volume 108 fl (79-97); Monocytes # (Auto) 0.8 K/mm3 (0.0-0.8); Platelet Count 122 K/mm3 (140-440); Red Blood Count 3.59 M/mm3 (3.65-5.03)
[2021-02-14 07:47] LABS: Blood Urea Nitrogen 5 mg/dL (7-17); Calcium 8.1 mg/dL (8.4-10.2); Hemolysis Index 5
[2021-02-14 07:54] LABS: BUN/Creatinine Ratio 25
[2021-02-14 08:31] LABS: Red Cell Distribution Width 21.6 % (13.2-15.2)
[2021-02-14] MEDS: PANTOPRAZOLE 40 MG TAB PO SCH (10:28)
[2021-02-14] MEDS: THIAMINE 100 MG TAB PO SCH (10:28)
[2021-02-14] MEDS: carvediloL 3.125 MG TAB PO SCH ×2 (10:28)
[2021-02-14] MEDS: MULTIVITAMINS,THER W-MINERALS TAB PO SCH (10:29)
[2021-02-14] MEDS: FOLIC ACID 1 MG TAB PO SCH (10:29)
[2021-02-14] MEDS: NICOTINE 14 MG/24 HR PATCH TD SCH (10:29)
[2021-02-14] MEDS: oxyCODONE /ACETAMINOPHEN 5-325MG TAB PO PRN (11:37)
--- NOTE | 2021-02-14 14:35 | Discharge Summary ---
Providers - Providers Date of Admission: 02/11/21 13:20 Date of discharge: 02/14/21 Attending physician: SELENE ALCANTARA 02/09/21 08:01 Consult to Physician [CONS] Urgent Comment: Consulting Provider: BOBY CARL Physician Instructions: Reason For Exam: abd pain transaminits 02/10/21 08:06 Consult to Wound/ET Nurse [CONS] Routine Reason For Exam: wound eval 02/11/21 15:07 Physical Therapy Evaluation and Treat [CONS] Routine Comment: Reason For Exam: Debility Primary care physician: BONSAI TENDER Hospitalization Condition: Poor Pertinent studies: Thoracentesis x2 each time 2 L of fluid was removed for recurrent pleural effusion. Secondary to end-stage liver disease. Procedures: Thoracentesis as mentioned previously. Hospital course: 50-year-old female with a history of end-stage liver disease cirrhosis, alcohol dependency, tobacco dependency chronic pain depression presented with abdominal pain secondary to end-stage liver disease. Patient's liver disease and pain was controlled with supportive care pain medications. Patient hospital course complicated by lower effusion which responded to thoracentesis x2. Patient was able to get up walk around with baseline 3 L of oxygen use the restroom without much difficulty now. Patient is at her baseline of end-stage liver disease chronic respiratory disease. She is O2 at 3 L of home. Can discharge on 3 L home O2. Patient to follow-up with GI as outpatient. Currently she is not a candidate for liver transplant secondary to continued alcohol use and chronic lung disease as well. Disposition: DC- TO HOME OR SELFCARE Final Discharge Diagnosis (Prints w/discharge instructions): End-stage liver disease - Discharge Diagnoses (1) Alcohol dependence Status: Acute Qualifiers: Complication of substance-induced condition: uncomplicated Comment: Patient been educated about alcohol cessation and the association with that and liver disease. (2) Ascites Status: Acute Qualifiers: Comment: Resolved with diuretics. (3) Cirrhosis Status: Acute Qualifiers: Hepatic cirrhosis type: alcoholic cirrhosis Comment: End-stage liver disease secondary to alcohol use and abuse. Patient had chronic pleural effusion which has been removed via thoracentesis x2. Follow-up CT scan showed improvement. Patient clinical improvement with oxygenation. We will go home with 3 L of O2 again. (4) Cirrhosis of liver Status: Acute Comment: Alcoholic cirrhosis. Continue alcohol cessation. No evidence of withdrawals at this admission. (5) End stage liver disease Status: Acute Comment: Patient have follow-up outpatient GI. Continue diuretics. Not a candidate for liver transplant may be patient can stop drinking. (6) Epigastric abdominal pain Status: Acute (7) Metabolic encephalopathy Status: Resolved (8) Nicotine dependence Status: Acute Qualifiers: Nicotine product type: cigarettes Substance use status: in withdrawal Qualified Code(s): F17.213 - Nicotine dependence, cigarettes, with withdrawal Comment: At this point patient not willing to try anything to stop smoking at home. (9) Pleural effusion Status: Acute (10) Acute GI hemorrhage Status: Acute Comment: No plan on invasive treatment. No scope plan. Follow- up outpatient. Core Measure Documentation - Palliative Care Palliative Care/ Comfort Measures: Not Applicable (She is candidate for palliative care.) - Core Measures Any of the following diagnoses?: none Exam - Constitutional Vitals: Temp Pulse Resp BP Pulse Ox 97.2 F L 91 H 20 118/78 96 02/13/21 23:51 02/14/21 10:28 02/14/21 05:15 02/14/21 10:28 02/14/21 08:30 General appearance: Present: cachectic, disheveled, other (Chronically ill) - EENT ENT: other (Scleral icterus) - Neck Neck: Present: supple, normal ROM - Respiratory Respiratory: bilateral: diminished, rhonchi - Cardiovascular Heart Sounds: Present: S1 & S2. Absent: rub, click - Extremities Extremities: pulses symmetrical, No edema Peripheral Pulses: within normal limits - Abdominal General gastrointestinal: Present: soft, non-tender, non-distended, normal bowel sounds - Musculoskeletal Musculoskeletal: generalized weakness - Psychiatric Psychiatric: appropriate mood/affect, intact judgment & insight Plan Activity: no driving until cleared by PCP, up only with assistance, fall precautions Weight Bearing Status: Weight Bear as Tolerated Diet: regular, low salt Special Instructions: physical therapy, home oxygen via (Patient already has home O2) Follow up with: LISA SIFUENTES MD [Staff Physician] - 7 Days PRIMARY CARE, [Primary Care Provider] - 3-5 Days Prescriptions: Folic Acid [Folvite] 1 mg PO DAILY #30 tablet Nicotine [Habitrol] 14 mg TD DAILY #7 patch oxyCODONE /ACETAMINOPHEN [Percocet 5/325 mg] 1 tab PO Q12H PRN #30 tablet PRN Reason: Pain, Moderate (4-6) hydrOXYzine PAMOATE [Vistaril] 50 mg PO Q8H PRN #30 capsule PRN Reason: Itching Thiamine [Vitamin B-1] 100 mg PO QDAY #30 tablet
[2021-02-14 18:48] VITALS: BP 124/73
[2021-02-15 15:41] LABS: LDH,Body Fluid 19; Total Protein,Body Fluid < 3.0 (15.0-45.0)
== END 2021-02-14 19:32 | disposition home health service (06) | DRG 432 ==
LOC: ED 01:32 → 3A 12:31 → OBSVTOIN 02-11 13:20
PROVIDERS: ADMIT Internal Medicine; ATTEND Internal Medicine
PROC: 0W993ZZ Drainage of Right Pleural Cavity, Percutaneous Approach (ICD-10-PCS; principal; 2021-02-10)
PROC: 0W993ZZ Drainage of Right Pleural Cavity, Percutaneous Approach (ICD-10-PCS; 2021-02-11)
PROC: 0W993ZZ Drainage of Right Pleural Cavity, Percutaneous Approach (ICD-10-PCS; 2021-02-12)
PROC: 06HY33Z Insertion of Infusion Device into Lower Vein, Percutaneous Approach (ICD-10-PCS; 2021-02-13)
DX: K70.31 Alcoholic cirrhosis of liver with ascites (principal); G93.41 Metabolic encephalopathy; N18.6 End stage renal disease; J96.01 Acute respiratory failure with hypoxia; J90 Pleural effusion, not elsewhere classified; I12.0 Hypertensive chronic kidney disease with stage 5 chronic kidney disease or end stage renal disease; M17.0 Bilateral primary osteoarthritis of knee; F17.200 Nicotine dependence, unspecified, uncomplicated; K72.90 Hepatic failure, unspecified without coma; F32.9 Major depressive disorder, single episode, unspecified; G89.4 Chronic pain syndrome; D69.6 Thrombocytopenia, unspecified; K92.2 Gastrointestinal hemorrhage, unspecified; D68.9 Coagulation defect, unspecified; I85.00 Esophageal varices without bleeding; F41.1 Generalized anxiety disorder; L40.9 Psoriasis, unspecified; E83.42 Hypomagnesemia; E87.2 Acidosis; R65.10 Systemic inflammatory response syndrome (SIRS) of non-infectious origin without acute organ dysfunction; Z80.0 Family history of malignant neoplasm of digestive organs; Z79.899 Other long term (current) drug therapy; Z79.891 Long term (current) use of opiate analgesic; Z79.01 Long term (current) use of anticoagulants; Z98.891 History of uterine scar from previous surgery; Z90.49 Acquired absence of other specified parts of digestive tract; Z86.711 Personal history of pulmonary embolism; Z82.49 Family history of ischemic heart disease and other diseases of the circulatory system; Z71.6 Tobacco abuse counseling
CPT/HCPCS: 32555; 36415; 71045; 71046; 74177; 76705; 80048; 80053; 80320; 82140; 82550; 82947; 83605; 83690; 83735; 84160; 84484; 85007; 85025; 85610; 87040; 87086; 87116; 87641; 88112; 88305; 89051; 93005; 94640; 96365; 96368; 96375; G0378; A6250; C9113; G0480; J0696; J1170; J2060; J2765; J3411; J3475; J7030; J7120; Q9967

== ENCOUNTER 2021-02-15 20:49 | Inpatient (IN) | payer MEDICAID ==
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
[2021-02-15] MEDS ORDERED: SODIUM CHLORIDE 0.9% 1000 ML 1,000 ML IV ONE (21:46)
[2021-02-15] MEDS ORDERED: MINERAL OIL/PETROLATUM, WHITE OPHTH OINT 3.5 GM OU PRN (21:47)
[2021-02-15] MEDS ORDERED: LIP THERAPY VASELINE TP PRN (21:47)
[2021-02-15] MEDS ORDERED: NORepinephrine/NS 4 MG-250 ML 4 MG/250 ML BAG IV ONE (22:11)
[2021-02-15] MEDS: FAMOTIDINE 20 MG/2 ML INJ IV SCH (22:16)
--- NOTE | 2021-02-15 22:16 | XRay Report ---
CHEST 1 VIEW INDICATION: ETT and CVL placement. COMPARISON: 02/12/2021 FINDINGS: Support devices: Endotracheal tube, right IJ catheter, and esophagogastric tube have been placed in e xpected position. Heart: Stable. Lungs/Pleura: There is near complete opacification of the right hemithorax. Area of lucency in the ri ght upper hemithorax may be due to aerated right upper lobe. The left lung is essentially clear. IMPRESSION: 1. Support devices project in expected position. 2. New since the prior, there is near complete opacification of the right hemithorax. This could be d ue to a combination of effusion and airspace disease. Signer Name: Maykel Epstein MD Signed: 02/15/2021 10:12 PM Workstation Name: [id number]
[2021-02-15 22:28] LABS: Mean Corpuscular HGB Conc 28 % (30-34); Platelet Count 166 K/mm3 (140-440); Red Blood Count 3.36 M/mm3 (3.65-5.03)
[2021-02-15 22:30] LABS: Hematocrit 40.5 % (30.3-42.9); Hemoglobin 11.5 gm/dl (10.1-14.3); Mean Corpuscular Volume 121 fl (79-97); Red Cell Distribution Width 22.7 % (13.2-15.2)
[2021-02-15] MEDS: NORepinephrine/NS 4 MG-250 ML 4 MG/250 ML BAG IV SCH (22:30)
[2021-02-15] MEDS ORDERED: DOPamine/D5W 800 MG/250 ML 800 MG/250 ML BAG IV ONE (23:02)
[2021-02-15 23:06] LABS: Anisocytosis 1+; Total Cells Counted 100
[2021-02-15 23:07] LABS: Macrocytosis 2+
[2021-02-15] MEDS ORDERED: SODIUM CHLORIDE 0.9% 1000 ML IV SOLN IV ONE (23:16)
[2021-02-15] MEDS ORDERED: CEFEPIME/NS 2 GM/100 ML 2 GM/100 ML BAG IV ONE (23:16)
[2021-02-15 23:20] LABS: INR 2.12 (0.87-1.13)
[2021-02-15 23:21] LABS: Partial Thromboplastin Time 54.1 Sec. (24.2-36.6)
[2021-02-15] MEDS ORDERED: VANCOMYCIN 1,250 MG in SODIUM CHLORIDE 0.9% 500 ML 250 ML IV ONE (23:30)
[2021-02-15] MEDS ORDERED: VANCOMYCIN PHARMACY TO DOSE IV SCH (23:45)
--- NOTE | 2021-02-16 00:10 | Cat Scan Report ---
CT HEAD WITHOUT CONTRAST INDICATION / CLINICAL INFORMATION: Altered Mental Status. TECHNIQUE: All CT scans at this location are performed using CT dose reduction for ALARA by means of automated exposure control. COMPARISON: None available. FINDINGS: HEMORRHAGE: None. EXTRA-AXIAL SPACES: Normal in size and morphology for the patient's age. VENTRICULAR SYSTEM: Normal in size and morphology for the patient's age. CEREBRAL PARENCHYMA: No significant abnormality. No acute territorial infarct. MIDLINE SHIFT / HERNIATION: None. CEREBELLUM / BRAINSTEM: No significant abnormality. ORBITS: Normal as visualized. SOFT TISSUES: No significant abnormality. SKULL: No significant abnormality. PARANASAL SINUSES / MASTOID AIR CELLS: Air-fluid levels in the sphenoid sinuses and left maxillary si nus. ADDITIONAL FINDINGS: None. IMPRESSION: 1. No acute intracranial abnormality. 2. Possible left maxillary and sphenoid sinusitis. Signer Name: Salome Solorio MD Signed: 02/16/2021 12:06 AM Workstation Name: [id number]
--- NOTE | 2021-02-16 00:14 | Cat Scan Report ---
CT CERVICAL SPINE WITHOUT CONTRAST INDICATION / CLINICAL INFORMATION: cardiac arrest. Neck trauma. TECHNIQUE: Axial CT images were obtained through the cervical spine. Sagittal and coronal reformatted images were produced. All CT scans at this location are performed using CT dose reduction for ALARA by means of automated exposure control. COMPARISON: None available. FINDINGS: VERTEBRAE: No significant abnormality. ALIGNMENT: No significant abnormality. DISC SPACES: Mild discogenic spondylosis at C5-6 and C6-7. FACET JOINTS: No significant abnormality. CRANIOCERVICAL JUNCTION:No significant abnormality. SPINAL CANAL: No significant abnormality. PARASPINAL SOFT TISSUES: No significant abnormality. ADDITIONAL FINDINGS: Endotracheal and esophagogastric gastric tubes are present. LUNG APICES: Large right pleural effusion. IMPRESSION: 1. No acute abnormality of the cervical spine. 2. Large right pleural effusion. Signer Name: Salome Solorio MD Signed: 02/16/2021 12:09 AM Workstation Name: [id number]
[2021-02-16 00:20] LABS: Alanine Aminotransferase 55 units/L (7-56); Albumin 1.7 g/dL (3.9-5); BUN/Creatinine Ratio 6; Blood Urea Nitrogen 7 mg/dL (7-17); Calcium 7.4 mg/dL (8.4-10.2); Hemolysis Index 21
--- NOTE | 2021-02-16 00:39 | Cat Scan Report ---
CTA CHEST WITH CONTRAST INDICATION / CLINICAL INFORMATION: cardiac arrest hypotension. TECHNIQUE: Axial CT images were obtained through the chest after injection of 100 mL Omnipaque 350 IV contrast. 3 plane MIP and/or 3D reconstructions were produced. All CT scans at this location are per formed using CT dose reduction for ALARA by means of automated exposure control. COMPARISON: CT dated 05/31/20 FINDINGS: PULMONARY ARTERIES: No pulmonary emboli. THORACIC AORTA: No significant abnormality. HEART: No significant abnormality. CORONARY ARTERY CALCIFICATION: None. MEDIASTINUM / GLORIA: Mild mediastinal shift to the left. PLEURA: Very large right pleural effusion occupying most of the right hemithorax. No pneumothorax. LUNGS: Complete atelectasis of the right lower lobe with partial atelectasis of the right middle lobe and right upper lobe. Mild edema in the left lung. ADDITIONAL FINDINGS: Endotracheal and esophagogastric tubes in expected position. UPPER ABDOMEN: Hepatic steatosis with hepatic cirrhosis. Cholelithiasis. SKELETAL STRUCTURES: No significant osseous abnormality. IMPRESSION: 1. No CT evidence for pulmonary embolism. 2. Very large right pleural effusion with near complete right lung atelectasis and mediastinal shift to the left. Signer Name: Salome Solorio MD Signed: 02/16/2021 12:35 AM Workstation Name: [id number]
--- NOTE | 2021-02-16 00:43 | Cat Scan Report ---
CT ABDOMEN AND PELVIS WITH CONTRAST INDICATION / CLINICAL INFORMATION: cardiac arrest hypotensive. TECHNIQUE: Axial CT images were obtained through the abdomen and pelvis after 100 mL Omnipaque [address] scans at this location are performed using CT dose reduction for ALARA by means of automated exposure control. COMPARISON: CT dated 02/09/21 FINDINGS: LOWER CHEST: Very large right pleural effusion is essentially unchanged. LIVER: Hepatic steatosis and cirrhosis, unchanged. Heterogeneity of the hepatic parenchyma is unchang ed. Recanalized paraumbilical vein and small main portal vein are unchanged. GALLBLADDER: Small calcified gallstones are unchanged. BILE DUCTS: No significant abnormality. PANCREAS: No significant abnormality. SPLEEN: No significant abnormality. ADRENALS: No significant abnormality. RIGHT KIDNEY / URETER: No significant abnormality. LEFT KIDNEY / URETER: No significant abnormality. STOMACH / SMALL BOWEL: No significant abnormality. COLON: Colonic wall edema is unchanged. APPENDIX: Not visualized. PERITONEUM: Small amount of free fluid in the abdomen and pelvis. No free air. No fluid collection. LYMPH NODES: No significant adenopathy. AORTA / ARTERIES: Mild atherosclerotic calcification without acute abnormality. IVC / VEINS: No significant abnormality. URINARY BLADDER: Contracted around a Lee catheter. REPRODUCTIVE ORGANS: No significant abnormality. ADDITIONAL FINDINGS: Small fat-containing ventral hernia is unchanged. SKELETAL SYSTEM: No significant abnormality. IMPRESSION: 1. Very large right pleural effusion, unchanged. 2. Hepatic steatosis and cirrhosis. 3. Small amount of ascites. Signer Name: Salome Solorio MD Signed: 02/16/2021 12:39 AM Workstation Name: [id number]
[2021-02-16] MEDS ORDERED: ONDANSETRON 4 MG/2 ML INJ IV PRN (01:31)
[2021-02-16] MEDS ORDERED: ACETAMINOPHEN 325 MG TAB PO PRN (01:31)
[2021-02-16] MEDS ORDERED: ALBUTEROL 2.5 MG/3 ML NEBU IH PRN (01:31)
--- NOTE | 2021-02-16 01:43 | History and Physical Report ---
History of Present Illness Date of examination: 02/16/21 Date of admission: 02/16/21 01:07 Chief complaint: Cardiac arrest Acute respiratory failure status post intubation History of present illness: 50-year-old female with history of end-stage liver disease, alcohol dependence, malnutrition, major depressive disorder, esophageal varices, GI bleed, psoriasis, alcoholic encephalopathy, hypertension, recurrent pleural effusion, tobacco dependence, chronic pain who presents status post cardiac arrest. Family called EMS. Patient was found unresponsive in shower. Patient recently treated for pneumonia and possible pulmonary embolism. Upon EMS arrival, patient was pulseless. PEA rhythm. Rate 36 bpm. Patient required 20 minutes of ACLS on scene to achieve return of spontaneous circulation. Patient was intubated with ETT. Patient received 2 doses of epinephrine, one dose of dextrose and one dose of sodium bicarbonate. According to electronic medical record, patient was discharged from this hospital on yesterday. Patient received pain control for abdominal pain due to end-stage liver disease. Patient also underwent thoracentesis twice. It was documented that patient is not a candidate for liver transplant due to continued alcohol use and lung disease. Patient became unresponsive while taking shower. Daughter noticed that lips turned blue. She performed CPR. Sister explained that the extensive skin sloughing is a drug reaction. Patient has acute anoxic encephalopathy: Patient does not respond to noxious stimuli. Pupils are persistently nonreactive. Patient has minimal respiratory effort while on CPAP. Dr. Oconnor attempted to explain to children that patient's situation is dire. Understandably patient's younger children desires "everything to be done". Past History Past Medical History: hypertension, other (end-stage liver disease, alcohol dependence, malnutrition, major depressive disorder, esophageal varices, GI bleed, psoriasis, alcoholic encephalopathy, hypertension, recurrent pleural effusion, tobacco dependence, chronic pain ) Medications and Allergies Allergies Allergy/AdvReac Type Severity Reaction Status Date / Time No Known Allergies Allergy Verified 10/14/20 07:13 Home Medications Medication Instructions Recorded Confirmed Last Taken Type Betamethasone Dipropionate 1 applicatio TP BID 02/09/21 02/09/21 Unknown History [Betamethasone Dipropionate 0.05% Cream] Famotidine [Pepcid] 20 mg PO BID 02/09/21 02/09/21 Unknown History Furosemide [Lasix TAB] 20 mg PO QDAY 02/09/21 02/09/21 Unknown History Gabapentin 400 mg PO Q8HR 02/09/21 02/09/21 Unknown History Hydroxyzine HCl [hydrOXYzine] 50 mg PO Q8HR PRN 02/09/21 02/09/21 Unknown History Nicotine [Habitrol] 1 patch TP DAILY 02/09/21 02/09/21 Unknown History Spironolactone [Aldactone] 25 mg PO QDAY 02/09/21 02/09/21 Unknown History carvediloL [Coreg] 3.125 mg PO BID 02/09/21 02/09/21 Unknown History Folic Acid [Folvite] 1 mg PO DAILY #30 tablet 02/12/21 Unknown Rx Thiamine [Vitamin B-1] 100 mg PO QDAY #30 tablet 02/12/21 Unknown Rx hydrOXYzine PAMOATE [Vistaril] 50 mg PO Q8H PRN #30 capsule 02/12/21 Unknown Rx Nicotine [Habitrol] 14 mg TD DAILY #7 patch 02/14/21 Unknown Rx oxyCODONE /ACETAMINOPHEN [Percocet 1 tab PO Q12H PRN #30 tablet 02/14/21 Unknown Rx 5/325 mg] Active Meds: Active Medications Acetaminophen (Acetaminophen 325 Mg Tab) 650 mg PO Q6H PRN PRN Reason: Pain MILD(1-3)/Fever >100.5/FAULKNER Albuterol (Albuterol 2.5 Mg/3 Ml Nebu) 2.5 mg IH Q3HRT PRN PRN Reason: Shortness Of Breath Albuterol/Ipratropium (Ipratropium/Albuterol Sulfate 3 Ml Ampul.Neb) 1 ampul IH Q6HRT [facility] Carvedilol (Carvedilol 3.125 Mg Tab) 3.125 mg PO BID [facility] Famotidine (Famotidine 20 Mg/2 Ml Inj) 20 mg IV BID [facility] Last Admin: 02/15/21 22:16 Dose: 20 mg Documented by: Folic Acid (Folic Acid 1 Mg Tab) 1 mg PO DAILY [facility] Hydrophilic Ointment (Lip Therapy Vaseline) 1 applic TP Q2HR PRN PRN Reason: Dry Lips Norepinephrine (Levophed Drip 4 Mg/Ns 250 Ml) 4 mg in 250 mls @ 7.5 mls/hr IV TITR FOREIGN; Protocol Dopamine HCl/Dextrose (Intropin Drip 800 Mg/D5w 250 Ml) 800 mg in 250 mls @ 2.381 mls/hr IV TITR ONE; Protocol Stop: 02/20/21 08:01 Dextrose/Sodium Chloride (D5ns) 1,000 mls @ 125 mls/hr IV DIRECT FOREIGN Ceftriaxone Sodium (Rocephin/Ns 2 Gm/100 Ml) 2 gm in 100 mls @ 200 mls/hr IV Q24H FOREIGN; Protocol Azithromycin (Zithromax/Ns) 500 mg in 250 mls @ 250 mls/hr IV Q24H FOREIGN; Protocol Miscellaneous Medication (Betamethasone Dipropionate [Betamethasone Dipropionate 0.05% Cream]) 1 applicatio TP BID FOREIGN Multi-Ingred Cream/Lotion/Oil/Oint (Mineral Oil/Petrolatum, White Ophth Oint 3.5 Gm) 1 applic OU Q4HR PRN PRN Reason: Dry Eye(s) Ondansetron HCl (Ondansetron 4 Mg/2 Ml Inj) 4 mg IV Q8H PRN PRN Reason: Nausea And Vomiting Senna/Docusate Sodium (Sennosides/Docusate Sodium 8.6/50 Mg Tab) 1 tab FEEDTUBE BID FOREIGN Sodium Chloride (Sodium Chloride 0.9% 10 Ml Flush Syringe) 10 ml IV BID FOREIGN Sodium Chloride (Sodium Chloride 0.9% 10 Ml Flush Syringe) 10 ml IV PRN PRN PRN Reason: LINE FLUSH Review of Systems Constitutional: other (Unresponsiveness) Exam - Constitutional Vitals: Temp Pulse Resp BP Pulse Ox 74 15 60/31 94 02/15/21 22:16 02/15/21 22:16 02/15/21 22:16 02/15/21 22:16 General appearance: Present: no acute distress, severe distress, well-nourished, other (Unresponsiveness) - EENT Eyes: Present: PERRL ENT: hearing intact, clear oral mucosa - Neck Neck: Present: supple, normal ROM - Respiratory Respiratory effort: normal Respiratory: bilateral: CTA - Cardiovascular Heart Sounds: Present: S1 & S2. Absent: rub, click - Extremities Extremities: pulses symmetrical, No edema Peripheral Pulses: within normal limits - Abdominal General gastrointestinal: Present: soft, non-tender, non-distended, normal bowel sounds Female genitourinary: Present: normal - Integumentary Integumentary: Present: clear, warm, dry - Musculoskeletal Musculoskeletal: gait normal, strength equal bilaterally - Psychiatric Psychiatric: other (Altered mental status) - Neurologic Neurologic: CNII-XII intact, moves all extremities, other (Altered mental status) HEART Score - HEART Score Troponin: Troponin T < 0.010 ng/mL (0.00-0.029) 02/15/21 21:58 Results - Labs CBC & Chem 7: 02/15/21 21:58 02/15/21 21:58 Labs: Laboratory Last Values WBC 27.7 K/mm3 (4.5-11.0) H 02/15/21 21:58 RBC 3.36 M/mm3 (3.65-5.03) L 02/15/21 21:58 Hgb 11.5 gm/dl (10.1-14.3) 02/15/21 21:58 Hct 40.5 % (30.3-42.9) 02/15/21 21:58 MCV 121 fl (79-97) H 02/15/21 21:58 MCH 34 pg (28-32) H 02/15/21 21:58 MCHC 28 % (30-34) L 02/15/21 21:58 RDW 22.7 % (13.2-15.2) H 02/15/21 21:58 Plt Count 166 K/mm3 (140-440) 02/15/21 21:58 Add Manual Diff Complete 02/15/21 21:58 Total Counted 100 02/15/21 21:58 Seg Neutrophils % Distribution Center Manager 02/15/21 21:58 Seg Neuts % (Manual) 91.0 % (40.0-70.0) H 02/15/21 21:58 Lymphocytes % (Manual) 6.0 % (13.4-35.0) L 02/15/21 21:58 Monocytes % (Manual) 3.0 % (0.0-7.3) 02/15/21 21:58 Nucleated RBC % Not Reportable 02/15/21 21:58 Seg Neutrophils # Man 25.2 K/mm3 (1.8-7.7) H 02/15/21 21:58 Band Neutrophils # 0.0 K/mm3 02/15/21 21:58 Lymphocytes # (Manual) 1.7 K/mm3 (1.2-5.4) 02/15/21 21:58 Abs React Lymphs (Man) 0.0 K/mm3 02/15/21 21:58 Monocytes # (Manual) 0.8 K/mm3 (0.0-0.8) 02/15/21 21:58 Eosinophils # (Manual) 0.0 K/mm3 (0.0-0.4) 02/15/21 21:58 Basophils # (Manual) 0.0 K/mm3 (0.0-0.1) 02/15/21 21:58 Metamyelocytes # 0.0 K/mm3 02/15/21 21:58 Myelocytes # 0.0 K/mm3 02/15/21 21:58 Promyelocytes # 0.0 K/mm3 02/15/21 21:58 Blast Cells # 0.0 K/mm3 02/15/21 21:58 WBC Morphology Not Reportable 02/15/21 21:58 Hypersegmented Neuts Not Reportable 02/15/21 21:58 Hyposegmented Neuts Not Reportable 02/15/21 21:58 Hypogranular Neuts Not Reportable 02/15/21 21:58 Smudge Cells Not Reportable 02/15/21 21:58 Toxic Granulation Not Reportable 02/15/21 21:58 Toxic Vacuolation Not Reportable 02/15/21 21:58 Dohle Bodies Not Reportable 02/15/21 21:58 Pelger-Huet Anomaly Not Reportable 02/15/21 21:58 Talita Rods Not Reportable 02/15/21 21:58 Platelet Estimate Not Reportable 02/15/21 21:58 Clumped Platelets Not Reportable 02/15/21 21:58 Plt Clumps, EDTA Not Reportable 02/15/21 21:58 Large Platelets Not Reportable 02/15/21 21:58 Giant Platelets Not Reportable 02/15/21 21:58 Platelet Satelliting Not Reportable 02/15/21 21:58 Plt Morphology Comment Not Reportable 02/15/21 21:58 RBC Morphology Not Reportable 02/15/21 21:58 Dimorphic RBCs Not Reportable 02/15/21 21:58 Polychromasia Not Reportable 02/15/21 21:58 Hypochromasia Not Reportable 02/15/21 21:58 Poikilocytosis Not Reportable 02/15/21 21:58 Anisocytosis 1+ 02/15/21 21:58 Microcytosis Not Reportable 02/15/21 21:58 Macrocytosis 2+ 02/15/21 21:58 Spherocytes Not Reportable 02/15/21 21:58 Pappenheimer Bodies Not Reportable 02/15/21 21:58 Sickle Cells Not Reportable 02/15/21 21:58 Target Cells Not Reportable 02/15/21 21:58 Tear Drop Cells Not Reportable 02/15/21 21:58 Ovalocytes Not Reportable 02/15/21 21:58 Helmet Cells Not Reportable 02/15/21 21:58 [place] Bodies Not Reportable 02/15/21 21:58 [place] Rings Not Reportable 02/15/21 21:58 Brethren Cells Not Reportable 02/15/21 21:58 Bite Cells Not Reportable 02/15/21 21:58 Crenated Cell Not Reportable 02/15/21 21:58 Elliptocytes Not Reportable 02/15/21 21:58 Acanthocytes (Spur) Not Reportable 02/15/21 21:58 Rouleaux Not Reportable 02/15/21 21:58 Hemoglobin C Crystals Not Reportable 02/15/21 21:58 Schistocytes Not Reportable 02/15/21 21:58 Malaria parasites Not Reportable 02/15/21 21:58 Rangel Bodies Not Reportable 02/15/21 21:58 Hem Pathologist Commnt No 02/15/21 21:58 PT 24.1 Sec. (12.2-14.9) H 02/15/21 21:58 INR 2.12 (0.87-1.13) H 02/15/21 21:58 APTT 54.1 Sec. (24.2-36.6) H 02/15/21 21:58 Sodium 140 mmol/L (137-145) 02/15/21 21:58 Potassium 4.6 mmol/L (3.6-5.0) D 02/15/21 21:58 Chloride 101.0 mmol/L (98-107) 02/15/21 21:58 Carbon Dioxide 15 mmol/L (22-30) L D 02/15/21 21:58 Anion Gap 29 mmol/L 02/15/21 21:58 BUN 7 mg/dL (7-17) 02/15/21 21:58 Creatinine 1.1 mg/dL (0.6-1.2) D 02/15/21 21:58 Estimated GFR 52 ml/min 02/15/21 21:58 BUN/Creatinine Ratio 6 % 02/15/21 21:58 Glucose 117 mg/dL (65-100) H 02/15/21 21:58 Lactic Acid 11.10 mmol/L (0.7-2.0) H* 02/16/21 00:19 Calcium 7.4 mg/dL (8.4-10.2) L 02/15/21 21:58 Total Bilirubin 3.30 mg/dL (0.1-1.2) H 02/15/21 21:58 AST 207 units/L (5-40) H 02/15/21 21:58 ALT 55 units/L (7-56) 02/15/21 21:58 Alkaline Phosphatase 302 units/L (35-129) H 02/15/21 21:58 Ammonia 231.0 umol/L (25-60) H 02/15/21 21:58 Troponin T < 0.010 ng/mL (0.00-0.029) 02/15/21 21:58 Total Protein 4.4 g/dL (6.3-8.2) L 02/15/21 21:58 Albumin 1.7 g/dL (3.9-5) L 02/15/21 21:58 Albumin/Globulin Ratio 0.6 % 02/15/21 21:58 TSH 11.520 mlU/mL (0.270-4.200) H 02/15/21 21:58 Plasma/Serum Alcohol < 0.01 % (0-0.07) 02/15/21 21:58 Microbiology: Microbiology 02/15/21 21:58 Peripheral/Venous Blood Culture - Preliminary Culture in Progress 02/15/21 21:58 Peripheral/Venous Blood Culture - Preliminary Culture in Progress - Imaging and Cardiology CT scan - chest: report reviewed CT Scan - head: report reviewed Assessment and Plan VTE prophylaxis?: Mechanical Plan of care discussed with patient/family: Yes - Patient Problems (1) Cardiac arrest Current Visit: Yes Status: Acute Plan to address problem: Admit the patient to the ICU. Aspirin 81 mg p.o. daily. Lipitor 40 mg p.o. daily. We do the serial cardiac enzymes. Will consult cardiology for evaluation echocardiogram. Prognosis is poor. (2) Acute respiratory failure Current Visit: Yes Status: Acute Plan to address problem: Patient is status post intubation. DuoNeb by nebulizer every 4 hours. Albuterol via nebulizer every 4 hours as needed. Will consult pulmonary and critical care Dr. Ramey for evaluation. Prognosis is poor (3) Acute anoxic encephalopathy Current Visit: Yes Status: Acute Plan to address problem: Patient does not respond to noxious stimuli. Pupils are persistently nonreactive. Patient has minimal respiratory effort while on CPAP. Dr. Oconnor attempted to explain to children that patient's situation is dire. Understandably patient's younger children desires "everything to be done". Dr. Oconnor anticipate further clinical decline to the point that further medical care is futile. Prognosis is poor. Consult neurology for evaluation (4) Septic shock Current Visit: Yes Status: Acute Plan to address problem: D5 normal saline at the rate of 125 cc/h. Rocephin 2 g IV daily. Zithromax 500 IV daily. Due to the blood cultures sputum culture. Reconsult critical care evaluation. (5) End stage liver disease Current Visit: Yes Status: Acute Plan to address problem: Protonix 40 mg IV every 12 hours. 2 Zofran 4 mg IV every 6 hours. We will continue the home medication. Reconsult GI for evaluation (6) Hepatic encephalopathy Current Visit: Yes Status: Acute Plan to address problem: Protonix 40 mg IV every 12 hours. 2 Zofran 4 mg IV every 6 hours. We will continue the home medication. consult GI for evaluation (7) Hospital-acquired pneumonia Current Visit: Yes Status: Acute Plan to address problem: DuoNeb by nebulizer every 4 hours. Albuterol via nebulizer every 4 hours as needed. Rocephin 2 g IV daily. Zithromax 500 IV daily. Due to the blood cultures sputum culture. consult critical care evaluation. (8) Malnutrition Current Visit: No Status: Chronic Plan to address problem: We will consult dietitian for evaluation. We will monitor the patient closely. Patient has poor prognosis (9) Pleural effusion Current Visit: Yes Status: Acute Plan to address problem: DuoNeb by nebulizer every 4 hours. Albuterol via nebulizer every 4 hours as needed. Rocephin 2 g IV daily. Zithromax 500 IV daily. Due to the blood cultures sputum culture. consult critical care evaluation. (10) DVT prophylaxis Current Visit: No Status: Acute Plan to address problem: SCD for DVT prophylaxis because of coagulopathy. Protonix 40 mg IV every 12 hours for GI prophylaxis. Prognosis is poor but patient is a full code as per the family
[2021-02-16] MEDS: SENNOSIDES/DOCUSATE SODIUM 8.6/50 MG TAB FEEDTUBE SCH ×3 (01:48→21:17)
[2021-02-16] MEDS: cefTRIAXone/NS 2 GM/100 ML 2 GM/100 ML BAG IV SCH (02:02)
[2021-02-16] MEDS: AZITHROMYCIN/NS 500 MG/250 ML 500 MG/250 ML BAG IV SCH (02:03)
[2021-02-16] MEDS: D5W/0.9% NACL 1,000 ML IV SCH ×3 (02:03→23:36)
[2021-02-16] MEDS ORDERED: SODIUM BICARB 8.4% 50 MEQ/50 ML SYRINGE IV ONE (03:22)
[2021-02-16] MEDS: IPRATROPIUM/ALBUTEROL SULFATE 3 ML AMPUL.NEB IH SCH ×4 (03:30→20:31)
[2021-02-16] MEDS: NORepinephrine/NS 4 MG-250 ML 4 MG/250 ML BAG IV SCH ×7 (03:37→23:37)
[2021-02-16 05:02] LABS: Hemoglobin 12.7 gm/dl (10.1-14.3); Mean Corpuscular HGB Conc 32 % (30-34); Mean Corpuscular Volume 107 fl (79-97); Platelet Count 186 K/mm3 (140-440); Red Blood Count 3.72 M/mm3 (3.65-5.03)
[2021-02-16 05:05] LABS: Red Cell Distribution Width 21.3 % (13.2-15.2)
[2021-02-16 05:09] LABS: INR 2.14 (0.87-1.13)
[2021-02-16 05:23] LABS: Alanine Aminotransferase 79 units/L (7-56); Albumin 1.7 g/dL (3.9-5); BUN/Creatinine Ratio 8; Blood Urea Nitrogen 7 mg/dL (7-17); Calcium 6.6 mg/dL (8.4-10.2); Hemolysis Index 25
[2021-02-16] MEDS ORDERED: LORazepam 2 MG/ML VIAL IV ONE (07:38)
[2021-02-16] MEDS ORDERED: LORazepam 2 MG/ML VIAL IV SCH (08:00)
[2021-02-16] MEDS ORDERED: levETIRAcetam 1,000 MG in DEXTROSE 5% IN WATER 100 ML IV ONE (09:00)
[2021-02-16] MEDS: FOLIC ACID 1 MG TAB PO SCH (09:05)
[2021-02-16] MEDS: FAMOTIDINE 20 MG/2 ML INJ IV SCH ×2 (09:05→21:17)
[2021-02-16] MEDS: ASPIRIN 81 MG TAB CHEW PO SCH (09:05)
[2021-02-16] MEDS: LORazepam 2 MG/ML VIAL IV SCH ×2 (09:29→10:14)
[2021-02-16] MEDS ORDERED: BETAMETHASONE DIPROPIONATE TP SCH (10:00)
[2021-02-16] MEDS ORDERED: carvediloL 3.125 MG TAB PO SCH (10:00)
[2021-02-16] MEDS: THIAMINE 100 MG TAB PO SCH (10:15)
[2021-02-16] MEDS ORDERED: SODIUM CHLORIDE 0.9% 1000 ML 1,000 ML IV ONE (10:45)
[2021-02-16] MEDS ORDERED: SODIUM CHLORIDE 0.9% 500 ML 500 ML IV PRN (10:45)
[2021-02-16] MEDS: LACTULOSE 20 GM/30 ML ORAL LIQD PO SCH ×3 (10:59→23:36)
--- NOTE | 2021-02-16 11:00 | Consultation ---
History of Present Illness Consult date: 02/16/21 Consult reason: cardiac arrest History of present illness: Patient is currently on ventilator and history obtained from medical records. 50-year-old female with history of end-stage liver disease, alcohol dependence, malnutrition, major depressive disorder, esophageal varices, GI bleed, psoriasis, alcoholic encephalopathy, hypertension, recurrent pleural effusion, tobacco dependence, chronic pain who presents status post PEA cardiac arrest. Patient was found unresponsive in shower and family called EMS. Upon EMS arrival, patient was pulseless. PEA rhythm. Rate 36 bpm. Patient required 20 minutes of ACLS on scene to achieve return of spontaneous circulation. Patient was intubated with ETT. Patient received 2 doses of epinephrine, one dose of dextrose and one dose of sodium bicarbonate. He was recently hospitalized due to respiratory failure, pleural effusion and pneumonia. Troponin levels have been normal. Last echocardiogram in 09/12/2019 had revealed normal EF of 55-60% Past History Past Medical History: hypertension, other (end-stage liver disease, alcohol dependence, malnutrition, major depressive disorder, esophageal varices, GI bleed, psoriasis, alcoholic encephalopathy, hypertension, recurrent pleural effusion, tobacco dependence, chronic pain ) Social history: alcohol abuse Family history: hypertension Medications and Allergies Allergies Allergy/AdvReac Type Severity Reaction Status Date / Time No Known Allergies Allergy Verified 10/14/20 07:13 Home Medications Medication Instructions Recorded Confirmed Last Taken Type Betamethasone Dipropionate 1 applicatio TP BID 02/09/21 02/09/21 Unknown History [Betamethasone Dipropionate 0.05% Cream] Famotidine [Pepcid] 20 mg PO BID 02/09/21 02/09/21 Unknown History Furosemide [Lasix TAB] 20 mg PO QDAY 02/09/21 02/09/21 Unknown History Gabapentin 400 mg PO Q8HR 02/09/21 02/09/21 Unknown History Hydroxyzine HCl [hydrOXYzine] 50 mg PO Q8HR PRN 02/09/21 02/09/21 Unknown History Nicotine [Habitrol] 1 patch TP DAILY 02/09/21 02/09/21 Unknown History Spironolactone [Aldactone] 25 mg PO QDAY 02/09/21 02/09/21 Unknown History carvediloL [Coreg] 3.125 mg PO BID 02/09/21 02/09/21 Unknown History Folic Acid [Folvite] 1 mg PO DAILY #30 tablet 02/12/21 Unknown Rx Thiamine [Vitamin B-1] 100 mg PO QDAY #30 tablet 02/12/21 Unknown Rx hydrOXYzine PAMOATE [Vistaril] 50 mg PO Q8H PRN #30 capsule 02/12/21 Unknown Rx Nicotine [Habitrol] 14 mg TD DAILY #7 patch 02/14/21 Unknown Rx oxyCODONE /ACETAMINOPHEN [Percocet 1 tab PO Q12H PRN #30 tablet 02/14/21 Unknown Rx 5/325 mg] Active Meds: Active Medications Acetaminophen (Acetaminophen 325 Mg Tab) 650 mg PO Q6H PRN PRN Reason: Pain MILD(1-3)/Fever >100.5/FAULKNER Albuterol (Albuterol 2.5 Mg/3 Ml Nebu) 2.5 mg IH Q3HRT PRN PRN Reason: Shortness Of Breath Albuterol/Ipratropium (Ipratropium/Albuterol Sulfate 3 Ml Ampul.Neb) 1 ampul IH Q6HRT [facility] Last Admin: 02/16/21 08:23 Dose: 1 ampul Documented by: Aspirin (Aspirin 81 Mg Tab Chew) 81 mg PO QDAY [facility] Last Admin: 02/16/21 09:05 Dose: 81 mg Documented by: Atorvastatin Calcium (Atorvastatin 40 Mg Tab) 40 mg PO QHS [facility] Famotidine (Famotidine 20 Mg/2 Ml Inj) 20 mg IV BID [facility] Last Admin: 02/16/21 09:05 Dose: 20 mg Documented by: Folic Acid (Folic Acid 1 Mg Tab) 1 mg PO DAILY [facility] Last Admin: 02/16/21 09:05 Dose: 1 mg Documented by: Hydrophilic Ointment (Lip Therapy Vaseline) 1 applic TP Q2HR PRN PRN Reason: Dry Lips Norepinephrine (Levophed Drip 4 Mg/Ns 250 Ml) 4 mg in 250 mls @ 7.5 mls/hr IV TITR [facility]; Protocol Last Admin: 02/16/21 10:10 Dose: 20 mcg/min, 75 mls/hr Documented by: Dopamine HCl/Dextrose (Intropin Drip 800 Mg/D5w 250 Ml) 800 mg in 250 mls @ 2.381 mls/hr IV TITR [facility]; Protocol Stop: 02/20/21 08:01 Last Admin: 02/16/21 00:00 Dose: Not Given Documented by: Dextrose/Sodium Chloride (D5ns) 1,000 mls @ 125 mls/hr IV DIRECT [facility] Last Admin: 02/16/21 02:03 Dose: 125 mls/hr Documented by: Ceftriaxone Sodium (Rocephin/Ns 2 Gm/100 Ml) 2 gm in 100 mls @ 200 mls/hr IV Q24H [facility]; Protocol Last Infusion: 02/16/21 04:33 Dose: Infused Documented by: Azithromycin (Zithromax/Ns) 500 mg in 250 mls @ 250 mls/hr IV Q24H [facility]; Protocol Last Infusion: 02/16/21 04:33 Dose: Infused Documented by: Levetiracetam 500 mg/ Dextrose 105 mls @ 400 mls/hr IV Q12HR [facility] Sodium Chloride (Nacl 0.9% 1000 Ml) 1,000 mls @ 999 mls/hr IV BOLUS ONE Stop: 02/16/21 11:45 Sodium Chloride (Nacl 0.9% 500 Ml) 500 mls @ 1 mls/hr IV DIRECT PRN PRN Reason: ARTERIAL LINE FLUSH Vasopressin 20 unit/ Sodium (Chloride) 101 mls @ 9.09 mls/hr IV TITR [facility]; Protocol Lactulose (Lactulose 20 Gm/30 Ml Oral Liqd) 20 gm PO Q6HR [facility] Miscellaneous Medication (Betamethasone Dipropionate [Betamethasone Dipropionate 0.05% Cream]) 1 applicatio TP BID [facility] Multi-Ingred Cream/Lotion/Oil/Oint (Mineral Oil/Petrolatum, White Ophth Oint 3.5 Gm) 1 applic OU Q4HR PRN PRN Reason: Dry Eye(s) Ondansetron HCl (Ondansetron 4 Mg/2 Ml Inj) 4 mg IV Q8H PRN PRN Reason: Nausea And Vomiting Senna/Docusate Sodium (Sennosides/Docusate Sodium 8.6/50 Mg Tab) 1 tab FEEDTUBE BID [facility] Last Admin: 02/16/21 09:28 Dose: 1 tab Documented by: Sodium Chloride (Sodium Chloride 0.9% 10 Ml Flush Syringe) 10 ml IV BID [facility] Last Admin: 02/16/21 09:05 Dose: 10 ml Documented by: Sodium Chloride (Sodium Chloride 0.9% 10 Ml Flush Syringe) 10 ml IV PRN PRN PRN Reason: LINE FLUSH Thiamine HCl (Thiamine 100 Mg Tab) 100 mg PO QDAY [facility] Last Admin: 02/16/21 10:15 Dose: 100 mg Documented by: Review of Systems ROS unobtainable: due to endotracheal tube Physical Examination Vital Signs Pulse Resp Pulse Ox 72 10 L 96 02/15/21 20:52 02/15/21 20:52 02/15/21 20:52 General appearance: other (Intubated) Cardiac: Positive: Reg Rate and Rhythm Lungs: Positive: Decreased Breath Sounds, Rhonchi Abdomen: Positive: Distended Extremities: Present: edema Results 02/16/21 04:47 02/16/21 04:47 Cardiac Enzymes 02/15/21 02/15/21 02/15/21 Range/Units 21:58 21:58 21:58 WBC 27.7 H (4.5-11.0) K/mm3 RBC 3.36 L (3.65-5.03) M/mm3 Hgb 11.5 (10.1-14.3) gm/dl Hct 40.5 (30.3-42.9) % MCV 121 H (79-97) fl MCH 34 H (28-32) pg MCHC 28 L (30-34) % RDW 22.7 H (13.2-15.2) % Plt Count 166 (140-440) K/mm3 Add Manual Diff Complete Total Counted 100 Seg Neutrophils % Chief Wheelage Clerk Seg Neuts % (Manual) 91.0 H (40.0-70.0) % Lymphocytes % (Manual) 6.0 L (13.4-35.0) % Monocytes % (Manual) 3.0 (0.0-7.3) % Nucleated RBC % Not Reportable Seg Neutrophils # Man 25.2 H (1.8-7.7) K/mm3 Band Neutrophils # 0.0 K/mm3 Lymphocytes # (Manual) 1.7 (1.2-5.4) K/mm3 Abs React Lymphs (Man) 0.0 K/mm3 Monocytes # (Manual) 0.8 (0.0-0.8) K/mm3 Eosinophils # (Manual) 0.0 (0.0-0.4) K/mm3 Basophils # (Manual) 0.0 (0.0-0.1) K/mm3 Metamyelocytes # 0.0 K/mm3 Myelocytes # 0.0 K/mm3 Promyelocytes # 0.0 K/mm3 Blast Cells # 0.0 K/mm3 WBC Morphology Not Reportable Hypersegmented Neuts Not Reportable Hyposegmented Neuts Not Reportable Hypogranular Neuts Not Reportable Smudge Cells Not Reportable Toxic Granulation Not Reportable Toxic Vacuolation Not Reportable Dohle Bodies Not Reportable Pelger-Huet Anomaly Not Reportable Talita Rods Not Reportable Platelet Estimate Not Reportable Clumped Platelets Not Reportable Plt Clumps, EDTA Not Reportable Large Platelets Not Reportable Giant Platelets Not Reportable Platelet Satelliting Not Reportable Plt Morphology Comment Not Reportable RBC Morphology Not Reportable Dimorphic RBCs Not Reportable Polychromasia Not Reportable Hypochromasia Not Reportable Poikilocytosis Not Reportable Anisocytosis 1+ Microcytosis Not Reportable Macrocytosis 2+ Spherocytes Not Reportable Pappenheimer Bodies Not Reportable Sickle Cells Not Reportable Target Cells Not Reportable Tear Drop Cells Not Reportable Ovalocytes Not Reportable Helmet Cells Not Reportable Arnett-Elias-Fela Solis Bodies Not Reportable Empire Rings Not Reportable [place] Cells Not Reportable Bite Cells Not Reportable Crenated Cell Not Reportable Elliptocytes Not Reportable Acanthocytes (Spur) Not Reportable Rouleaux Not Reportable Hemoglobin C Crystals Not Reportable Schistocytes Not Reportable Malaria parasites Not Reportable Rangel Bodies Not Reportable Hem Pathologist Commnt No PT 24.1 H (12.2-14.9) Sec. INR 2.12 H (0.87-1.13) APTT 54.1 H (24.2-36.6) Sec. ABG pH (7.320-7.450) POC ABG pCO2 (32.0-48.0) mmHg POC ABG pO2 (83-108) mmHg POC ABG HCO3 ABG O2 Saturation (0-100) POC ABG Base Excess ABG Hemoglobin (12.0-17.5) ABG Oxyhemoglobin (94-98) ABG Methemoglobin (0.0-1.5) ABG Sodium (136.0-145.0) mmol/L ABG Potassium (3.40-4.50) mmol/L ABG Chloride (98-107) mmol/L ABG Glucose (65-95) mg/dL Carboxyhemoglobin (0.5-1.5) FiO2 % Sodium 140 (137-145) mmol/L Potassium 4.6 D (3.6-5.0) mmol/L Chloride 101.0 (98-107) mmol/L Carbon Dioxide 15 L D (22-30) mmol/L Anion Gap 29 mmol/L BUN 7 (7-17) mg/dL Creatinine 1.1 D (0.6-1.2) mg/dL Estimated GFR 52 ml/min BUN/Creatinine Ratio 6 % Glucose 117 H (65-100) mg/dL Lactic Acid (0.7-2.0) mmol/L Calcium 7.4 L (8.4-10.2) mg/dL Total Bilirubin 3.30 H (0.1-1.2) mg/dL AST 207 H (5-40) units/L ALT 55 (7-56) units/L Alkaline Phosphatase 302 H (35-129) units/L Ammonia (25-60) umol/L Troponin T < 0.010 (0.00-0.029) ng/mL Total Protein 4.4 L (6.3-8.2) g/dL Albumin 1.7 L (3.9-5) g/dL Albumin/Globulin Ratio 0.6 % TSH (0.270-4.200) mlU/mL Arterial Blood Glucose (65-95) mg/dL Arterial Blood Ionized Calcium (4.6-5.3) mg/dL Plasma/Serum Alcohol (0-0.07) % 02/15/21 02/15/21 02/15/21 Range/Units 21:58 21:58 21:58 WBC (4.5-11.0) K/mm3 RBC (3.65-5.03) M/mm3 Hgb (10.1-14.3) gm/dl Hct (30.3-42.9) % MCV (79-97) fl MCH (28-32) pg MCHC (30-34) % RDW (13.2-15.2) % Plt Count (140-440) K/mm3 Add Manual Diff Total Counted Seg Neutrophils % Seg Neuts % (Manual) (40.0-70.0) % Lymphocytes % (Manual) (13.4-35.0) % Monocytes % (Manual) (0.0-7.3) % Nucleated RBC % Seg Neutrophils # Man (1.8-7.7) K/mm3 Band Neutrophils # K/mm3 Lymphocytes # (Manual) (1.2-5.4) K/mm3 Abs React Lymphs (Man) K/mm3 Monocytes # (Manual) (0.0-0.8) K/mm3 Eosinophils # (Manual) (0.0-0.4) K/mm3 Basophils # (Manual) (0.0-0.1) K/mm3 Metamyelocytes # K/mm3 Myelocytes # K/mm3 Promyelocytes # K/mm3 Blast Cells # K/mm3 WBC Morphology Hypersegmented Neuts Hyposegmented Neuts Hypogranular Neuts Smudge Cells Toxic Granulation Toxic Vacuolation Dohle Bodies Pelger-Huet Anomaly [place] Rods Platelet Estimate Clumped Platelets Plt Clumps, EDTA Large Platelets Giant Platelets Platelet Satelliting Plt Morphology Comment RBC Morphology Dimorphic RBCs Polychromasia Hypochromasia Poikilocytosis Anisocytosis Microcytosis Macrocytosis Spherocytes Pappenheimer Bodies Sickle Cells Target Cells Tear Drop Cells Ovalocytes Helmet Cells Arnett-Elias-Fela Solis Bodies Empire Rings Tam Cells Bite Cells Crenated Cell Elliptocytes Acanthocytes (Spur) Rouleaux Hemoglobin C Crystals Schistocytes Malaria parasites Rangel Bodies Hem Pathologist Commnt PT (12.2-14.9) Sec. INR (0.87-1.13) APTT (24.2-36.6) Sec. ABG pH (7.320-7.450) POC ABG pCO2 (32.0-48.0) mmHg POC ABG pO2 (83-108) mmHg POC ABG HCO3 ABG O2 Saturation (0-100) POC ABG Base Excess ABG Hemoglobin (12.0-17.5) ABG Oxyhemoglobin (94-98) ABG Methemoglobin (0.0-1.5) ABG Sodium (136.0-145.0) mmol/L ABG Potassium (3.40-4.50) mmol/L ABG Chloride (98-107) mmol/L ABG Glucose (65-95) mg/dL Carboxyhemoglobin (0.5-1.5) FiO2 % Sodium (137-145) mmol/L Potassium (3.6-5.0) mmol/L Chloride (98-107) mmol/L Carbon Dioxide (22-30) mmol/L Anion Gap mmol/L BUN (7-17) mg/dL Creatinine (0.6-1.2) mg/dL Estimated GFR ml/min BUN/Creatinine Ratio % Glucose (65-100) mg/dL Lactic Acid 14.50 H* (0.7-2.0) mmol/L Calcium (8.4-10.2) mg/dL Total Bilirubin (0.1-1.2) mg/dL AST (5-40) units/L ALT (7-56) units/L Alkaline Phosphatase (35-129) units/L Ammonia 231.0 H (25-60) umol/L Troponin T (0.00-0.029) ng/mL Total Protein (6.3-8.2) g/dL Albumin (3.9-5) g/dL Albumin/Globulin Ratio % TSH 11.520 H (0.270-4.200) mlU/mL Arterial Blood Glucose (65-95) mg/dL Arterial Blood Ionized Calcium (4.6-5.3) mg/dL Plasma/Serum Alcohol (0-0.07) % 02/15/21 02/16/21 02/16/21 Range/Units 21:58 00:19 03:10 WBC (4.5-11.0) K/mm3 RBC (3.65-5.03) M/mm3 Hgb (10.1-14.3) gm/dl Hct (30.3-42.9) % MCV (79-97) fl MCH (28-32) pg MCHC (30-34) % RDW (13.2-15.2) % Plt Count (140-440) K/mm3 Add Manual Diff Total Counted Seg Neutrophils % Seg Neuts % (Manual) (40.0-70.0) % Lymphocytes % (Manual) (13.4-35.0) % Monocytes % (Manual) (0.0-7.3) % Nucleated RBC % Seg Neutrophils # Man (1.8-7.7) K/mm3 Band Neutrophils # K/mm3 Lymphocytes # (Manual) (1.2-5.4) K/mm3 Abs React Lymphs (Man) K/mm3 Monocytes # (Manual) (0.0-0.8) K/mm3 Eosinophils # (Manual) (0.0-0.4) K/mm3 Basophils # (Manual) (0.0-0.1) K/mm3 Metamyelocytes # K/mm3 Myelocytes # K/mm3 Promyelocytes # K/mm3 Blast Cells # K/mm3 WBC Morphology Hypersegmented Neuts Hyposegmented Neuts Hypogranular Neuts Smudge Cells Toxic Granulation Toxic Vacuolation Dohle Bodies Pelger-Huet Anomaly Talita Rods Platelet Estimate Clumped Platelets Plt Clumps, EDTA Large Platelets Giant Platelets Platelet Satelliting Plt Morphology Comment RBC Morphology Dimorphic RBCs Polychromasia Hypochromasia Poikilocytosis Anisocytosis Microcytosis Macrocytosis Spherocytes Pappenheimer Bodies Sickle Cells Target Cells Tear Drop Cells Ovalocytes Helmet Cells Arnett-Elias-Fela Solis Bodies Empire Rings [place] Cells Bite Cells Crenated Cell Elliptocytes Acanthocytes (Spur) Rouleaux Hemoglobin C Crystals Schistocytes Malaria parasites Rangel Bodies Hem Pathologist Commnt PT (12.2-14.9) Sec. INR (0.87-1.13) APTT (24.2-36.6) Sec. ABG pH (7.320-7.450) POC ABG pCO2 (32.0-48.0) mmHg POC ABG pO2 (83-108) mmHg POC ABG HCO3 ABG O2 Saturation (0-100) POC ABG Base Excess ABG Hemoglobin (12.0-17.5) ABG Oxyhemoglobin (94-98) ABG Methemoglobin (0.0-1.5) ABG Sodium (136.0-145.0) mmol/L ABG Potassium (3.40-4.50) mmol/L ABG Chloride (98-107) mmol/L ABG Glucose (65-95) mg/dL Carboxyhemoglobin (0.5-1.5) FiO2 % Sodium (137-145) mmol/L Potassium (3.6-5.0) mmol/L Chloride (98-107) mmol/L Carbon Dioxide (22-30) mmol/L Anion Gap mmol/L BUN (7-17) mg/dL Creatinine (0.6-1.2) mg/dL Estimated GFR ml/min BUN/Creatinine Ratio % Glucose (65-100) mg/dL Lactic Acid 11.10 H* 9.40 H* (0.7-2.0) mmol/L Calcium (8.4-10.2) mg/dL Total Bilirubin (0.1-1.2) mg/dL AST (5-40) units/L ALT (7-56) units/L Alkaline Phosphatase (35-129) units/L Ammonia (25-60) umol/L Troponin T (0.00-0.029) ng/mL Total Protein (6.3-8.2) g/dL Albumin (3.9-5) g/dL Albumin/Globulin Ratio % TSH (0.270-4.200) mlU/mL Arterial Blood Glucose (65-95) mg/dL Arterial Blood Ionized Calcium (4.6-5.3) mg/dL Plasma/Serum Alcohol < 0.01 (0-0.07) % 02/16/21 02/16/21 02/16/21 Range/Units 03:10 03:10 04:47 WBC 29.0 H (4.5-11.0) K/mm3 RBC 3.72 (3.65-5.03) M/mm3 Hgb 12.7 (10.1-14.3) gm/dl Hct 40.0 (30.3-42.9) % MCV 107 H (79-97) fl MCH 34 H (28-32) pg MCHC 32 (30-34) % RDW 21.3 H (13.2-15.2) % Plt Count 186 (140-440) K/mm3 Add Manual Diff Total Counted Seg Neutrophils % Seg Neuts % (Manual) (40.0-70.0) % Lymphocytes % (Manual) (13.4-35.0) % Monocytes % (Manual) (0.0-7.3) % Nucleated RBC % Seg Neutrophils # Man (1.8-7.7) K/mm3 Band Neutrophils # K/mm3 Lymphocytes # (Manual) (1.2-5.4) K/mm3 Abs React Lymphs (Man) K/mm3 Monocytes # (Manual) (0.0-0.8) K/mm3 Eosinophils # (Manual) (0.0-0.4) K/mm3 Basophils # (Manual) (0.0-0.1) K/mm3 Metamyelocytes # K/mm3 Myelocytes # K/mm3 Promyelocytes # K/mm3 Blast Cells # K/mm3 WBC Morphology Hypersegmented Neuts Hyposegmented Neuts Hypogranular Neuts Smudge Cells Toxic Granulation Toxic Vacuolation Dohle Bodies Pelger-Huet Anomaly Tal[place] Rods Platelet Estimate Clumped Platelets Plt Clumps, EDTA Large Platelets Giant Platelets Platelet Satelliting Plt Morphology Comment RBC Morphology Dimorphic RBCs Polychromasia Hypochromasia Poikilocytosis Anisocytosis Microcytosis Macrocytosis Spherocytes Pappenheimer Bodies Sickle Cells Target Cells Tear Drop Cells Ovalocytes Helmet Cells Arnett-Elias-Fela Solis Bodies Empire Rings [place] Cells Bite Cells Crenated Cell Elliptocytes Acanthocytes (Spur) Rouleaux Hemoglobin C Crystals Schistocytes Malaria parasites Rangel Bodies Hem Pathologist Commnt PT (12.2-14.9) Sec. INR (0.87-1.13) APTT (24.2-36.6) Sec. ABG pH 7.196 L (7.320-7.450) POC ABG pCO2 42.5 (32.0-48.0) mmHg POC ABG pO2 238.1 H (83-108) mmHg POC ABG HCO3 16.1 ABG O2 Saturation 99.8 (0-100) POC ABG Base Excess -11.5 ABG Hemoglobin 13.6 (12.0-17.5) ABG Oxyhemoglobin 99.0 H (94-98) ABG Methemoglobin 0.1 (0.0-1.5) ABG Sodium 138.2 (136.0-145.0) mmol/L ABG Potassium 4.2 (3.40-4.50) mmol/L ABG Chloride 108.0 H (98-107) mmol/L ABG Glucose 116 H (65-95) mg/dL Carboxyhemoglobin 0.7 (0.5-1.5) FiO2 % 100.0 Sodium (137-145) mmol/L Potassium (3.6-5.0) mmol/L Chloride (98-107) mmol/L Carbon Dioxide (22-30) mmol/L Anion Gap mmol/L BUN (7-17) mg/dL Creatinine (0.6-1.2) mg/dL Estimated GFR ml/min BUN/Creatinine Ratio % Glucose (65-100) mg/dL Lactic Acid (0.7-2.0) mmol/L Calcium (8.4-10.2) mg/dL Total Bilirubin (0.1-1.2) mg/dL AST (5-40) units/L ALT (7-56) units/L Alkaline Phosphatase (35-129) units/L Ammonia (25-60) umol/L Troponin T < 0.010 (0.00-0.029) ng/mL Total Protein (6.3-8.2) g/dL Albumin (3.9-5) g/dL Albumin/Globulin Ratio % TSH (0.270-4.200) mlU/mL Arterial Blood Glucose 116 H (65-95) mg/dL Arterial Blood Ionized Calcium (4.6-5.3) mg/dL Plasma/Serum Alcohol (0-0.07) % 02/16/21 02/16/21 02/16/21 Range/Units 04:47 04:47 07:43 WBC (4.5-11.0) K/mm3 RBC (3.65-5.03) M/mm3 Hgb (10.1-14.3) gm/dl Hct (30.3-42.9) % MCV (79-97) fl MCH (28-32) pg MCHC (30-34) % RDW (13.2-15.2) % Plt Count (140-440) K/mm3 Add Manual Diff Total Counted Seg Neutrophils % Seg Neuts % (Manual) (40.0-70.0) % Lymphocytes % (Manual) (13.4-35.0) % Monocytes % (Manual) (0.0-7.3) % Nucleated RBC % Seg Neutrophils # Man (1.8-7.7) K/mm3 Band Neutrophils # K/mm3 Lymphocytes # (Manual) (1.2-5.4) K/mm3 Abs React Lymphs (Man) K/mm3 Monocytes # (Manual) (0.0-0.8) K/mm3 Eosinophils # (Manual) (0.0-0.4) K/mm3 Basophils # (Manual) (0.0-0.1) K/mm3 Metamyelocytes # K/mm3 Myelocytes # K/mm3 Promyelocytes # K/mm3 Blast Cells # K/mm3 WBC Morphology Hypersegmented Neuts Hyposegmented Neuts Hypogranular Neuts Smudge Cells Toxic Granulation Toxic Vacuolation Dohle Bodies Pelger-Huet Anomaly Tal[place] Rods Platelet Estimate Clumped Platelets Plt Clumps, EDTA Large Platelets Giant Platelets Platelet Satelliting Plt Morphology Comment RBC Morphology Dimorphic RBCs Polychromasia Hypochromasia Poikilocytosis Anisocytosis Microcytosis Macrocytosis Spherocytes Pappenheimer Bodies Sickle Cells Target Cells Tear Drop Cells Ovalocytes Helmet Cells Arnett-Elias-Fela Solis Bodies Empire Rings Tam Cells Bite Cells Crenated Cell Elliptocytes Acanthocytes (Spur) Rouleaux Hemoglobin C Crystals Schistocytes Malaria parasites Rangel Bodies Hem Pathologist Commnt PT 24.3 H (12.2-14.9) Sec. INR 2.14 H (0.87-1.13) APTT (24.2-36.6) Sec. ABG pH (7.320-7.450) POC ABG pCO2 (32.0-48.0) mmHg POC ABG pO2 (83-108) mmHg POC ABG HCO3 ABG O2 Saturation (0-100) POC ABG Base Excess ABG Hemoglobin (12.0-17.5) ABG Oxyhemoglobin (94-98) ABG Methemoglobin (0.0-1.5) ABG Sodium (136.0-145.0) mmol/L ABG Potassium (3.40-4.50) mmol/L ABG Chloride (98-107) mmol/L ABG Glucose (65-95) mg/dL Carboxyhemoglobin (0.5-1.5) FiO2 % Sodium 144 (137-145) mmol/L Potassium 4.0 (3.6-5.0) mmol/L Chloride 104.2 (98-107) mmol/L Carbon Dioxide 20 L (22-30) mmol/L Anion Gap 24 mmol/L BUN 7 (7-17) mg/dL Creatinine 0.9 (0.6-1.2) mg/dL Estimated GFR > 60 ml/min BUN/Creatinine Ratio 8 % Glucose 126 H (65-100) mg/dL Lactic Acid 11.50 H* (0.7-2.0) mmol/L Calcium 6.6 L (8.4-10.2) mg/dL Total Bilirubin 3.40 H (0.1-1.2) mg/dL AST 305 H (5-40) units/L ALT 79 H (7-56) units/L Alkaline Phosphatase 287 H (35-129) units/L Ammonia (25-60) umol/L Troponin T (0.00-0.029) ng/mL Total Protein 4.5 L (6.3-8.2) g/dL Albumin 1.7 L (3.9-5) g/dL Albumin/Globulin Ratio 0.6 % TSH (0.270-4.200) mlU/mL Arterial Blood Glucose (65-95) mg/dL Arterial Blood Ionized Calcium (4.6-5.3) mg/dL Plasma/Serum Alcohol (0-0.07) % 02/16/21 Range/Units 09:43 WBC (4.5-11.0) K/mm3 RBC (3.65-5.03) M/mm3 Hgb (10.1-14.3) gm/dl Hct (30.3-42.9) % MCV (79-97) fl MCH (28-32) pg MCHC (30-34) % RDW (13.2-15.2) % Plt Count (140-440) K/mm3 Add Manual Diff Total Counted Seg Neutrophils % Seg Neuts % (Manual) (40.0-70.0) % Lymphocytes % (Manual) (13.4-35.0) % Monocytes % (Manual) (0.0-7.3) % Nucleated RBC % Seg Neutrophils # Man (1.8-7.7) K/mm3 Band Neutrophils # K/mm3 Lymphocytes # (Manual) (1.2-5.4) K/mm3 Abs React Lymphs (Man) K/mm3 Monocytes # (Manual) (0.0-0.8) K/mm3 Eosinophils # (Manual) (0.0-0.4) K/mm3 Basophils # (Manual) (0.0-0.1) K/mm3 Metamyelocytes # K/mm3 Myelocytes # K/mm3 Promyelocytes # K/mm3 Blast Cells # K/mm3 WBC Morphology Hypersegmented Neuts Hyposegmented Neuts Hypogranular Neuts Smudge Cells Toxic Granulation Toxic Vacuolation Dohle Bodies Pelger-Huet Anomaly Talita Rods Platelet Estimate Clumped Platelets Plt Clumps, EDTA Large Platelets Giant Platelets Platelet Satelliting Plt Morphology Comment RBC Morphology Dimorphic RBCs Polychromasia Hypochromasia Poikilocytosis Anisocytosis Microcytosis Macrocytosis Spherocytes Pappenheimer Bodies Sickle Cells Target Cells Tear Drop Cells Ovalocytes Helmet Cells Arnett-Elias-Fela Solis Bodies Empire Rings [place] Cells Bite Cells Crenated Cell Elliptocytes Acanthocytes (Spur) Rouleaux Hemoglobin C Crystals Schistocytes Malaria parasites Rangel Bodies Hem Pathologist Commnt PT (12.2-14.9) Sec. INR (0.87-1.13) APTT (24.2-36.6) Sec. ABG pH 7.294 L (7.320-7.450) POC ABG pCO2 32.0 (32.0-48.0) mmHg POC ABG pO2 73.5 L (83-108) mmHg POC ABG HCO3 15.2 ABG O2 Saturation 93.7 (0-100) POC ABG Base Excess -10.2 ABG Hemoglobin 12.5 (12.0-17.5) ABG Oxyhemoglobin 92.4 L (94-98) ABG Methemoglobin 0.3 (0.0-1.5) ABG Sodium 141.6 (136.0-145.0) mmol/L ABG Potassium 3.7 (3.40-4.50) mmol/L ABG Chloride 111.0 H (98-107) mmol/L ABG Glucose 131 H (65-95) mg/dL Carboxyhemoglobin 1.1 (0.5-1.5) FiO2 % 30.0 Sodium (137-145) mmol/L Potassium (3.6-5.0) mmol/L Chloride (98-107) mmol/L Carbon Dioxide (22-30) mmol/L Anion Gap mmol/L BUN (7-17) mg/dL Creatinine (0.6-1.2) mg/dL Estimated GFR ml/min BUN/Creatinine Ratio % Glucose (65-100) mg/dL Lactic Acid (0.7-2.0) mmol/L Calcium (8.4-10.2) mg/dL Total Bilirubin (0.1-1.2) mg/dL AST (5-40) units/L ALT (7-56) units/L Alkaline Phosphatase (35-129) units/L Ammonia (25-60) umol/L Troponin T (0.00-0.029) ng/mL Total Protein (6.3-8.2) g/dL Albumin (3.9-5) g/dL Albumin/Globulin Ratio % TSH (0.270-4.200) mlU/mL Arterial Blood Glucose 131 H (65-95) mg/dL Arterial Blood Ionized Calcium 3.8 L (4.6-5.3) mg/dL Plasma/Serum Alcohol (0-0.07) % Coagulation 02/15/21 02/16/21 Range/Units 21:58 04:47 PT 24.1 H 24.3 H (12.2-14.9) Sec. INR 2.12 H 2.14 H (0.87-1.13) APTT 54.1 H (24.2-36.6) Sec. CBC 02/15/21 02/16/21 Range/Units 21:58 04:47 WBC 27.7 H 29.0 H (4.5-11.0) K/mm3 RBC 3.36 L 3.72 (3.65-5.03) M/mm3 Hgb 11.5 12.7 (10.1-14.3) gm/dl Hct 40.5 40.0 (30.3-42.9) % Plt Count 166 186 (140-440) K/mm3 Comprehensive Metabolic Panel 02/15/21 02/16/21 Range/Units 21:58 04:47 Sodium 140 144 (137-145) mmol/L Potassium 4.6 D 4.0 (3.6-5.0) mmol/L Chloride 101.0 104.2 (98-107) mmol/L Carbon Dioxide 15 L D 20 L (22-30) mmol/L BUN 7 7 (7-17) mg/dL Creatinine 1.1 D 0.9 (0.6-1.2) mg/dL Glucose 117 H 126 H (65-100) mg/dL Calcium 7.4 L 6.6 L (8.4-10.2) mg/dL AST 207 H 305 H (5-40) units/L ALT 55 79 H (7-56) units/L Alkaline Phosphatase 302 H 287 H (35-129) units/L Total Protein 4.4 L 4.5 L (6.3-8.2) g/dL Albumin 1.7 L 1.7 L (3.9-5) g/dL Assessment and Plan S/P PEA arrest Large right pleural effusion End Stage Liver Disease Alcoholic Cirrhosis Recommend: Check Echo Supportive care Pulmonary evaluation
[2021-02-16] MEDS: VASOPRESSIN 20 UNIT in SODIUM CHLORIDE 0.9% 100 ML IV SCH (11:11)
--- NOTE | 2021-02-16 12:38 | Post Operative Note ---
Date of procedure: 02/16/21 Pre-op diagnosis: Cardiac arrest Post-op diagnosis: same Procedure: Right femoral arterial line placement A time out was performed. After an palpation of right femoral artery prepped using chlorhexidine scrub and draped in sterile fashion using a three quarter sheet drape and sterile towels. The femoral pulse was identified and the rt leg was positioned in the usual fashion. Anesthesia was achieved using 1% lidocaine. Using the Femoral A line kit, a needle was inserted into the right femoral artery. Arterial blood was seen to pulsate in the flash chamber. The internal guidewire was advanced easily into the femoral artery. The catheter was then adv anced over the wire and the needle and wire were withdrawn. The catheter was sutured in place. A sterile opsite was placed over the catheter at the insertion site. The patient tolerated the procedure without any hemodynamic compromise. At the time of procedure completion, the catheter was connected to the manager cardiac cath and calibrated. Appropriate waveform and blood pressure tracing was observed. Sterile technique and barrier maintained throughout procedure Estimated blood loss is <5 cc. Anesthesia: local Surgeon: YE CARL Assistant Auditor: TEVIN JORGENSEN Estimated blood loss: minimal Condition: critical Disposition: ICU
--- NOTE | 2021-02-16 13:26 | Consultation ---
History of Present Illness Consult date: 02/16/21 Requesting physician: BECKY DAWSON Reason for consult: other (out of hospital cardiac arrest) History of present illness: 40 y/o female, recently admitted and discharged on 02/13 presents to the ED as a prolonged out of hospital arrest. patient is intubated and not on any sedation. She is having myoclonic jerking. On minimal vent settings. Still on Levophed at 30 and vasopressin at standard dosing. Completely unresponsive. Past History Past Medical History: hepatitis, hypertension, liver disease, other (CHF, Pemphigus Foilaceous, biopsy proven) Social history: alcohol abuse Family history: hypertension Medications and Allergies Allergies Allergy/AdvReac Type Severity Reaction Status Date / Time No Known Allergies Allergy Verified 10/14/20 07:13 Home Medications Medication Instructions Recorded Confirmed Last Taken Type Betamethasone Dipropionate 1 applicatio TP BID 02/09/21 02/09/21 Unknown History [Betamethasone Dipropionate 0.05% Cream] Famotidine [Pepcid] 20 mg PO BID 02/09/21 02/09/21 Unknown History Furosemide [Lasix TAB] 20 mg PO QDAY 02/09/21 02/09/21 Unknown History Gabapentin 400 mg PO Q8HR 02/09/21 02/09/21 Unknown History Hydroxyzine HCl [hydrOXYzine] 50 mg PO Q8HR PRN 02/09/21 02/09/21 Unknown History Nicotine [Habitrol] 1 patch TP DAILY 02/09/21 02/09/21 Unknown History Spironolactone [Aldactone] 25 mg PO QDAY 02/09/21 02/09/21 Unknown History carvediloL [Coreg] 3.125 mg PO BID 02/09/21 02/09/21 Unknown History Folic Acid [Folvite] 1 mg PO DAILY #30 tablet 02/12/21 Unknown Rx Thiamine [Vitamin B-1] 100 mg PO QDAY #30 tablet 02/12/21 Unknown Rx hydrOXYzine PAMOATE [Vistaril] 50 mg PO Q8H PRN #30 capsule 02/12/21 Unknown Rx Nicotine [Habitrol] 14 mg TD DAILY #7 patch 02/14/21 Unknown Rx oxyCODONE /ACETAMINOPHEN [Percocet 1 tab PO Q12H PRN #30 tablet 02/14/21 Unknown Rx 5/325 mg] Active Meds: Active Medications Acetaminophen (Acetaminophen 325 Mg Tab) 650 mg PO Q6H PRN PRN Reason: Pain MILD(1-3)/Fever >100.5/FAULKNER Albuterol (Albuterol 2.5 Mg/3 Ml Nebu) 2.5 mg IH Q3HRT PRN PRN Reason: Shortness Of Breath Albuterol/Ipratropium (Ipratropium/Albuterol Sulfate 3 Ml Ampul.Neb) 1 ampul IH Q6HRT FOREIGN Last Admin: 02/16/21 08:23 Dose: 1 ampul Documented by: Aspirin (Aspirin 81 Mg Tab Chew) 81 mg PO QDAY FOREIGN Last Admin: 02/16/21 09:05 Dose: 81 mg Documented by: Atorvastatin Calcium (Atorvastatin 40 Mg Tab) 40 mg PO QHS FOREIGN Famotidine (Famotidine 20 Mg/2 Ml Inj) 20 mg IV BID [facility] Last Admin: 02/16/21 09:05 Dose: 20 mg Documented by: Folic Acid (Folic Acid 1 Mg Tab) 1 mg PO DAILY FOREIGN Last Admin: 02/16/21 09:05 Dose: 1 mg Documented by: Hydrophilic Ointment (Lip Therapy Vaseline) 1 applic TP Q2HR PRN PRN Reason: Dry Lips Norepinephrine (Levophed Drip 4 Mg/Ns 250 Ml) 4 mg in 250 mls @ 7.5 mls/hr IV TITR FOREIGN; Protocol Last Admin: 02/16/21 10:10 Dose: 20 mcg/min, 75 mls/hr Documented by: Dopamine HCl/Dextrose (Intropin Drip 800 Mg/D5w 250 Ml) 800 mg in 250 mls @ 2.381 mls/hr IV TITR ONE; Protocol Stop: 02/20/21 08:01 Last Admin: 02/16/21 00:00 Dose: Not Given Documented by: Dextrose/Sodium Chloride (D5ns) 1,000 mls @ 125 mls/hr IV DIRECT FOREIGN Last Admin: 02/16/21 13:01 Dose: 125 mls/hr Documented by: Ceftriaxone Sodium (Rocephin/Ns 2 Gm/100 Ml) 2 gm in 100 mls @ 200 mls/hr IV Q24H FOREIGN; Protocol Last Infusion: 02/16/21 04:33 Dose: Infused Documented by: Azithromycin (Zithromax/Ns) 500 mg in 250 mls @ 250 mls/hr IV Q24H [facility]; Protocol Last Infusion: 02/16/21 04:33 Dose: Infused Documented by: Levetiracetam 500 mg/ Dextrose 105 mls @ 400 mls/hr IV Q12HR FOREIGN Sodium Chloride (Nacl 0.9% 500 Ml) 500 mls @ 1 mls/hr IV DIRECT PRN PRN Reason: ARTERIAL LINE FLUSH Vasopressin 20 unit/ Sodium (Chloride) 101 mls @ 9.09 mls/hr IV TITR [facility]; Protocol Last Admin: 02/16/21 11:11 Dose: 0.03 units/min, 9.09 mls/hr Documented by: Phenylephrine HCl 100 mg/ (Sodium Chloride) 100 mls @ 3 mls/hr IV TITR FOREIGN; Protocol Lactulose (Lactulose 20 Gm/30 Ml Oral Liqd) 20 gm PO Q6HR [facility] Last Admin: 02/16/21 10:59 Dose: 20 gm Documented by: Miscellaneous Medication (Betamethasone Dipropionate [Betamethasone Dipropionate 0.05% Cream]) 1 applicatio TP BID [facility] Multi-Ingred Cream/Lotion/Oil/Oint (Mineral Oil/Petrolatum, White Ophth Oint 3.5 Gm) 1 applic OU Q4HR PRN PRN Reason: Dry Eye(s) Ondansetron HCl (Ondansetron 4 Mg/2 Ml Inj) 4 mg IV Q8H PRN PRN Reason: Nausea And Vomiting Senna/Docusate Sodium (Sennosides/Docusate Sodium 8.6/50 Mg Tab) 1 tab FEEDTUBE BID [facility] Last Admin: 02/16/21 09:28 Dose: 1 tab Documented by: Sodium Chloride (Sodium Chloride 0.9% 10 Ml Flush Syringe) 10 ml IV BID [facility] Last Admin: 02/16/21 09:05 Dose: 10 ml Documented by: Sodium Chloride (Sodium Chloride 0.9% 10 Ml Flush Syringe) 10 ml IV PRN PRN PRN Reason: LINE FLUSH Thiamine HCl (Thiamine 100 Mg Tab) 100 mg PO QDAY [facility] Last Admin: 02/16/21 10:15 Dose: 100 mg Documented by: Review of Systems ROS unobtainable: due to endotracheal tube, due to mental status Physical Examination Vital signs: Vital Signs Pulse Resp Pulse Ox 72 10 L 96 02/15/21 20:52 02/15/21 20:52 02/15/21 20:52 General appearance: comatose, appears uncomfortable, other (myoclonic jerks) ENT: other (orally intubated and not sedated) Neck: supple Ascultation: Right: diminished breath sounds, Left: clear Percussion: Right: dull Results - Laboratory Findings CBC and BMP: 02/16/21 04:47 02/16/21 04:47 ABG ABG pH 7.294 (7.320-7.450) L 02/16/21 09:43 POC ABG pCO2 32.0 mmHg (32.0-48.0) 02/16/21 09:43 POC ABG pO2 73.5 mmHg (83-108) L 02/16/21 09:43 POC ABG HCO3 15.2 02/16/21 09:43 ABG O2 Saturation 93.7 (0-100) 02/16/21 09:43 PT/INR, D-dimer PT 24.3 Sec. (12.2-14.9) H 02/16/21 04:47 INR 2.14 (0.87-1.13) H 02/16/21 04:47 Abnormal lab findings: Abnormal Labs 02/15/21 02/15/21 02/15/21 21:58 21:58 21:58 WBC 27.7 H RBC 3.36 L MCV 121 H MCH 34 H MCHC 28 L RDW 22.7 H Seg Neuts % (Manual) 91.0 H Lymphocytes % (Manual) 6.0 L Seg Neutrophils # Man 25.2 H PT 24.1 H INR 2.12 H APTT 54.1 H ABG pH POC ABG pO2 ABG Oxyhemoglobin ABG Chloride ABG Glucose Carbon Dioxide 15 L D Glucose 117 H Lactic Acid Calcium 7.4 L Total Bilirubin 3.30 H AST 207 H ALT Alkaline Phosphatase 302 H Ammonia Total Protein 4.4 L Albumin 1.7 L TSH Arterial Blood Glucose Arterial Blood Ionized Calcium 02/15/21 02/15/21 02/15/21 21:58 21:58 21:58 WBC RBC MCV MCH MCHC RDW Seg Neuts % (Manual) Lymphocytes % (Manual) Seg Neutrophils # Man PT INR APTT ABG pH POC ABG pO2 ABG Oxyhemoglobin ABG Chloride ABG Glucose Carbon Dioxide Glucose Lactic Acid 14.50 H* Calcium Total Bilirubin AST ALT Alkaline Phosphatase Ammonia 231.0 H Total Protein Albumin TSH 11.520 H Arterial Blood Glucose Arterial Blood Ionized Calcium 02/16/21 02/16/21 02/16/21 00:19 03:10 03:10 WBC RBC MCV MCH MCHC RDW Seg Neuts % (Manual) Lymphocytes % (Manual) Seg Neutrophils # Man PT INR APTT ABG pH 7.196 L POC ABG pO2 238.1 H ABG Oxyhemoglobin 99.0 H ABG Chloride 108.0 H ABG Glucose 116 H Carbon Dioxide Glucose Lactic Acid 11.10 H* 9.40 H* Calcium Total Bilirubin AST ALT Alkaline Phosphatase Ammonia Total Protein Albumin TSH Arterial Blood Glucose 116 H Arterial Blood Ionized Calcium 02/16/21 02/16/21 02/16/21 04:47 04:47 04:47 WBC 29.0 H RBC MCV 107 H MCH 34 H MCHC RDW 21.3 H Seg Neuts % (Manual) Lymphocytes % (Manual) Seg Neutrophils # Man PT 24.3 H INR 2.14 H APTT ABG pH POC ABG pO2 ABG Oxyhemoglobin ABG Chloride ABG Glucose Carbon Dioxide 20 L Glucose 126 H Lactic Acid Calcium 6.6 L Total Bilirubin 3.40 H AST 305 H ALT 79 H Alkaline Phosphatase 287 H Ammonia Total Protein 4.5 L Albumin 1.7 L TSH Arterial Blood Glucose Arterial Blood Ionized Calcium 02/16/21 02/16/21 07:43 09:43 WBC RBC MCV MCH MCHC RDW Seg Neuts % (Manual) Lymphocytes % (Manual) Seg Neutrophils # Man PT INR APTT ABG pH 7.294 L POC ABG pO2 73.5 L ABG Oxyhemoglobin 92.4 L ABG Chloride 111.0 H ABG Glucose 131 H Carbon Dioxide Glucose Lactic Acid 11.50 H* Calcium Total Bilirubin AST ALT Alkaline Phosphatase Ammonia Total Protein Albumin TSH Arterial Blood Glucose 131 H Arterial Blood Ionized Calcium 3.8 L - Diagnostic Findings Chest x-ray: image reviewed Assessment and Plan 50 y/o female with multiple medical problems with out of hospital cardiac arrest, now intubated, not on sedation on multiple pressors with likely anoxic brain injury. 1. Repeat head CT tomorrow 2. Agree with EEG 3. No sedatives, jerking is not seizures, but myoclonic jerks, likely from anoxia 4. COntinue vasopressors and wean as tolerated 5. Agree with abx therapy 6. Long discussion at bedside with one son and one daughter. Daughter attempted to provide timeline and patient was likely down for 20+ minutes before ROSC was achieved. Son is very upset and angry, feels that hospital discharged his mother to fast. States that they hate this hospital and they did not want their mother here. She always goes to [facility] which is an accurate statement. A lot of history obtained from [facility]. Skin condition is chronic and not new. Biopsy proven Pemphigus Foliaceus and patient was suppose to follow up with [facility] next month. She also has systolic heart failure with an EF of 25-30%. She does not have a device. She has Hep C and severe liver disease from this. She also has chronic pain as well. Attempted to explain in detail the severity of illness and multisystem organ failure that their family member was experiencing even prior to admission. Will have follow discussions with them once we have repeat head CT and EEG. CCT 31 minutes.
--- NOTE | 2021-02-16 16:02 | Event Note ---
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 Of note patient was recently discharged on 02/11 from [facility] after treatment for recurrent pleural effusion after thoracentesis x2. Upon arrival of EMS patient was found to be in PEA and required 20 minutes of ACLS to achieve ROSC and the patient was intubated. CXR revealed near complete opacification of the right hemothorax and CT head revealed no acute intracranial abnormality with possible left maxillary and sphinoed sinusitis, C-spine CT showed a large right pleural effusion, CTA chest showed very large right pleural effusion with near complete right lung atelectasis and mediastinal shift to the left and CT abdomen/pelvis showed a very large right pleural effusion which was unchanged , hepatic steatosis and cirrhosis, small amount of ascites. Patient was admitted to the hospital s/p cardiac arrest, septic shock, ESLD complicated by arthropathy, hepatic encephalopathy, ascites, pleural effusion, acute anoxic encephalopathy and large right pleural effusion. Consults were placed to critical care, neurology, GI and cardiology and WOCN. PMH: ESLD secondary to EtOH abuse, malnutrition, MDD, EV, GIB, psoriasis, hepatic encephalopathy, HTN, recurrent pleural effusions, tobacco dependence, chronic pain, heart failure with reduced EF, pemphigus foilaceous Psx: unknown Social hx: EtOH, nicotine dependence, patient has several children Promise Haile [phone] (daughter) Neuro: Acute hepatic encephalopathy, s/p cardiac arrest, possible anoxic brain injury, major depressive disorder -Neurology consulted, appreciate recommendations -02/16 CT head-image reviewed -CTA head pending -Patient noted to have possible seizure activity/myoclonic jerks -Given Ativan 4mg without cessation -Loaded with Keppra 1 g, Keppra 500 twice daily -Nuclear med brain flow study pending -EEG pending -Seizure/aspiration precautions -Lactulose every 6 -We will recheck ammonia in the a.m. -Thiamine Cardio: ST, s/p cardiac arrest, hypotension, heart failure with reduced EF -Echocardiogram from OSH shows EF of 25 to 30% -Repeat echocardiogram pending -ASA/Lipitor -S/p 1 L bolus -Currently on vasopressors: Levophed, vasopressin, titrate for map goal of 65 (phenyl epinephrine ordered) -A-line placed today Respiratory: Acute on chronic hypoxic respiratory failure, recurrent pleural effusions, tobacco dependence -Patient was recently discharged from hospital with supplemental oxygenation, unknown if patient uses currently -Intubated in the field by EMS -OETT 6.0 at 22 at the lip -Current vent settings: AC tidal volume 450, rate of 20, PEEP of 6, FiO2 30% -02/16 ABG 0943 shows pH 7.29, PaCO2 32, PaO2 73.5, HCO3 15.2 and 30% FiO2 -02/16 ABG 0310 shows pH 7.196, PCO2 42.5, PO2 238, HCO3 16.1 on 100% FiO2 -02/15 CXR reviewed -Serial ABGs/CXR -VAP bundle -Wean mechanical ventilation as tolerated GI: ESLD secondary to EtOH abuse, nutrition, esophageal varices, recent GI bleed, transaminitis -GI consulted, appreciate recommendations -02/15 ammonia 231 -Hepatic panel pending -Lactulose every 6 -Trend ammonia, LFTs -PPI : Metabolic acidosis -Strict intake and output -Lee catheter -Daily weights - (+) 2.8 L ID: Leukocytosis, ? Sepsis, TEN,h/o pemphigus foilaceous -Presented with hypoxia, tachycardia, leukocytosis, CXR shows consolidation -Antibiotic therapy: Azithromycin and ceftriaxone 02/16 -02/15 blood cultures x2 culture in progress -02/16 blood cultures x2 culture in progress -02/15 sputum culture in process -Patient was hypothermic and required Hallie hugger now is normothermic -UA pending -UDS pending Heme: Supratherapeutic INR, coagulopathy 2/2 ESLD -Avoid chemical anticoagulation in setting of supratherapeutic INR -SCDs to bilateral lower extremity while in bed -SCDs for hemoglobin less than 7 -Trend CBC Endo: Hypoglycemia -NTR consult -Accu-Cheks every 6 -D5 normal saline at 125 -Nutrition consult -Avoid hypoglycemia -Hypoglycemia protocol The high probability of a clinically significant, sudden or life threatening deterioration of the [multi] system(s) required my full and direct attention, intervention and personal management. The aggregate critical care time was [90] minutes. This time is in addition to time spent performing reported procedures but includes the following: [x] Data Review and interpretation [x] Patient assessment and monitoring of vital signs [x] Documentation [x] Medication orders and management
[2021-02-16] MEDS ORDERED: DEXTROSE 50% IN WATER (25GM) 50 ML SYRINGE IV ONE (17:07)
[2021-02-16] MEDS ORDERED: LORazepam 2 MG/ML VIAL ONE (20:28)
[2021-02-16 20:35] LABS: Bilirubin,Urine NEG (Negative); Blood,Urine LG (Negative); Color,Urine Amber (Yellow); Mucus,Urine FEW /HPF; Urobilinogen,Urine < 2.0 mg/dL (<2.0)
[2021-02-16] MEDS ORDERED: dilTIAZem 25 MG/5 ML INJ IV ONE (20:37)
[2021-02-16] MEDS ORDERED: LORazepam 2 MG/ML VIAL IV PRN (20:37)
[2021-02-16 20:50] LABS: Amphetamine Screen,Urine Negative; Benzodiazepines Screen,Urine Negative; Cannabinoid Screen,Urine Negative; Cocaine Screen,Urine Negative; Methadone Screen,Urine Negative; Opiate Screen,Urine Negative
[2021-02-16] MEDS ORDERED: ACETAMINOPHEN 500 MG TAB PO ONE (21:27)
[2021-02-16] MEDS ORDERED: AMIODARONE 150 MG in DEXTROSE 5% IN WATER 97 ML IV ONE (21:27)
[2021-02-16] MEDS ORDERED: ACETAMINOPHEN 500 MG TAB ONE (21:30)
[2021-02-16] MEDS: AMIODARONE 900 MG in DEXTROSE 5% IN WATER 482 ML IV SCH (21:50)
--- NOTE | 2021-02-17 01:11 | Consultation ---
DATE OF CONSULTATION: 02/16/2021 REFERRING PHYSICIAN: Dr. Eulogio Bradshaw INDICATIONS: 1. Liver disease. 2. Alcohol dependence. HISTORY: The patient is a 50-year-old female with history of alcohol dependence, end-stage liver disease as well as major depression, esophageal varices, and recurrent alcohol use. The patient recently was discharged after presented with pleural effusions. The patient presented unresponsive in a PEA and had ACLS performed and subsequently was intubated. GI was consulted to see if any need for aid in management. PAST MEDICAL HISTORY: 1. Alcohol cirrhosis. 2. Varices. MEDICATIONS: Reviewed and updated in chart. ALLERGIES: No known drug allergies. SOCIAL HISTORY: Alcohol dependence. FAMILY HISTORY: Negative for colon cancer. REVIEW OF SYSTEMS: Unable to fully assess since patient is unresponsive on the ventilator. PHYSICAL EXAMINATION: VITAL SIGNS: Temperature of 98.7, pulse 91, respiration 20, and blood pressure 100/60. GENERAL: Intubated and sedated, in no acute distress. HEENT: Pupils nonreactive. PULMONARY: Rhonchi. CARDIAC: Regular rhythm. ABDOMEN: Soft. SKIN: No obvious rashes. LABORATORY DATA: White count of 29, hemoglobin and hematocrit of 12 and 40, platelet count of 186. Chem-7 within normal limits. AST and ALT of 305 and 79 with a total bilirubin of 3.4. ASSESSMENT AND PLAN: A 50-year-old female with past medical history of alcohol cirrhosis and alcohol dependence with esophageal varices, who presented with a PEA and had to be intubated and now sedated with nonreactive pupils. The patient's overall situation is grim. Family requires everything to be done at this time. At this time, no need for further GI input. We will sign off, call as needed. TID: [id number] RECEIPT: [id number] [facility]
--- NOTE | 2021-02-17 02:29 | XRay Report ---
CHEST 1 VIEW 02/17/2021 1:04 AM INDICATION / CLINICAL INFORMATION: follow up respiratory failure. COMPARISON: 02/15/21 FINDINGS: SUPPORT DEVICES: Unchanged. HEART / MEDIASTINUM: Stable. LUNGS / PLEURA: Slight improvement in aeration of the right upper lobe. Slight decrease in size of mo derate to large right pleural effusion. No pneumothorax. ADDITIONAL FINDINGS: No significant additional findings. IMPRESSION: 1. Interval improvement. Signer Name: Salome Solorio MD Signed: 02/17/2021 2:24 AM Workstation Name: [id number]
[2021-02-17] MEDS: VASOPRESSIN 20 UNIT in SODIUM CHLORIDE 0.9% 100 ML IV SCH ×2 (02:38→13:58)
[2021-02-17] MEDS: AZITHROMYCIN/NS 500 MG/250 ML 500 MG/250 ML BAG IV SCH (02:40)
[2021-02-17] MEDS: cefTRIAXone/NS 2 GM/100 ML 2 GM/100 ML BAG IV SCH (02:40)
[2021-02-17] MEDS: IPRATROPIUM/ALBUTEROL SULFATE 3 ML AMPUL.NEB IH SCH ×4 (02:44→19:04)
--- NOTE | 2021-02-17 03:56 | XRay Report ---
CHEST 1 VIEW 02/17/2021 3:37 AM INDICATION / CLINICAL INFORMATION: replaced tube. COMPARISON: 1:19 AM FINDINGS: SUPPORT DEVICES: Endotracheal tube has been advanced slightly with the tip 3 cm above the federico. Oth er tubes and lines are unchanged. HEART / MEDIASTINUM: No significant abnormality. LUNGS / PLEURA: Decrease in size of right pleural effusion. Bilateral pulmonary opacities are unchang ed. No pneumothorax. ADDITIONAL FINDINGS: No significant additional findings. IMPRESSION: 1. Endotracheal tube in expected position. Signer Name: Salome Solorio MD Signed: 02/17/2021 3:51 AM Workstation Name: [id number]
[2021-02-17] MEDS: NORepinephrine/NS 4 MG-250 ML 4 MG/250 ML BAG IV SCH ×9 (03:57→23:37)
[2021-02-17] MEDS ORDERED: SODIUM BICARB 8.4% 50 MEQ/50 ML SYRINGE IV ONE (04:12)
[2021-02-17] MEDS ORDERED: SODIUM BICARBONATE 150 MEQ in DEXTROSE 5% IN WATER 1,000 ML IV SCH (05:00)
[2021-02-17 05:56] LABS: Hemoglobin 10.3 gm/dl (10.1-14.3); Mean Corpuscular HGB Conc 30 % (30-34); Platelet Count 168 K/mm3 (140-440); Red Blood Count 3.04 M/mm3 (3.65-5.03)
[2021-02-17 06:01] LABS: Mean Corpuscular Volume 112 fl (79-97); Red Cell Distribution Width 22.1 % (13.2-15.2)
[2021-02-17 06:05] LABS: INR 3.34 (0.87-1.13)
[2021-02-17] MEDS: LACTULOSE 20 GM/30 ML ORAL LIQD PO SCH ×3 (06:23→17:30)
[2021-02-17 06:50] LABS: Albumin 1.5 g/dL (3.9-5); Calcium 6.5 mg/dL (8.4-10.2)
[2021-02-17 08:53] LABS: Total Cells Counted 100
[2021-02-17 08:54] LABS: Band Neutrophils # (Manual) 2.1 K/mm3
[2021-02-17 08:56] LABS: Hypochromasia Few; Platelet Estimate Consistent w Auto
[2021-02-17] MEDS ORDERED: levETIRAcetam 500 MG in DEXTROSE 5% IN WATER 100 ML IV SCH (10:00)
[2021-02-17] MEDS: FAMOTIDINE 20 MG/2 ML INJ IV SCH ×2 (10:13→21:22)
[2021-02-17] MEDS: THIAMINE 100 MG TAB PO SCH (10:15)
[2021-02-17] MEDS: ASPIRIN 81 MG TAB CHEW PO SCH (10:39)
[2021-02-17] MEDS: FOLIC ACID 1 MG TAB PO SCH (10:40)
[2021-02-17] MEDS: SENNOSIDES/DOCUSATE SODIUM 8.6/50 MG TAB FEEDTUBE SCH ×2 (10:52→21:22)
--- NOTE | 2021-02-17 12:26 | Progress Note ---
Assessment and Plan 50 y/o female with multiple medical problems with out of hospital cardiac arrest, now intubated, not on sedation on multiple pressors with likely anoxic brain injury. 02/17/21: CT head without contrast today. Will increase rate on D5W to 150. Stopped all normal saline drips given hyperchloremia. Repeat ABG in 2 hours. Continue vasopressors to keep map greater than 65. Echo was being done at bedside and patient's heart rate is not as fast as monitor. Maybe picking up some artifact from myclonic jerking. White count continues to increase, continue abx therapy for now, could be reactive, however patient did have fever last night. Will have to give her some sedation for CT to get quality images so will start diprovan drip. Very very guarded prognosis. Follow up serologies. 1. Repeat head CT tomorrow 2. Agree with EEG 3. No sedatives, jerking is not seizures, but myoclonic jerks, likely from anoxia 4. COntinue vasopressors and wean as tolerated 5. Agree with abx therapy 6. Long discussion at bedside with one son and one daughter. Daughter attempted to provide timeline and patient was likely down for 20+ minutes before ROSC was achieved. Son is very upset and angry, feels that hospital discharged his mother to fast. States that they hate this hospital and they did not want their mother here. She always goes to [facility] which is an accurate statement. A lot of history obtained from [facility]. Skin condition is chronic and not new. Biopsy proven Pemphigus Foliaceus and patient was suppose to follow up with [facility] next month. She also has systolic heart failure with an EF of 25-30%. She does not have a device. She has Hep C and severe liver disease from this. She also has chronic pain as well. Attempted to explain in detail the severity of illness and multisystem organ failure that their family member was experiencing even prior to admission. Will have follow discussions with them once we have repeat head CT and EEG. CCT 31 minutes. Subjective Date of service: 02/17/21 Interval history: Several calls last night about patient heart rate, myocloinc jerks and blow cuff in tube. Patient had some desaturations as well. Tube changed. Started on amio drip for heart rate after dilt did not work. Patient also had worsening hypotension. Found to be acidotic, appeared to be more metabolic so started on bicarb drip to help. Hyperchloremic this am. Still unresponsive, not on sedation. Objective Vital Signs - 12hr 02/17/21 02/17/21 02/17/21 03:48 04:00 04:17 Temperature 99.4 F Pulse Rate 80 Pulse Rate [ Anterior Bilateral Throughout] Respiratory Rate [Anterior Bilateral Throughout] Blood Pressure 90/48 O2 Sat by Pulse 92 98 Oximetry 02/17/21 02/17/21 08:10 11:12 Temperature Pulse Rate 93 H Pulse Rate [ 94 H Anterior Bilateral Throughout] Respiratory 24 Rate [Anterior Bilateral Throughout] Blood Pressure 103/59 O2 Sat by Pulse 100 Oximetry Constitutional: comatose, appears uncomfortable, other (myoclonic jerks) ENT: other (orally intubated and not sedated) Neck: supple Ascultation: Right: diminished breath sounds, Left: clear Percussion: Right: dull CBC and BMP: 02/17/21 04:30 02/17/21 04:30 ABG, PT/INR, D-dimer: ABG ABG pH 7.183 (7.320-7.450) L 02/17/21 10:40 POC ABG pCO2 63.3 mmHg (32.0-48.0) H 02/17/21 10:40 POC ABG pO2 99.5 mmHg (83-108) 02/17/21 10:40 POC ABG HCO3 23.3 02/17/21 10:40 ABG O2 Saturation 95.8 (0-100) 02/17/21 10:40 PT/INR, D-dimer PT 33.9 Sec. (12.2-14.9) H 02/17/21 04:30 INR 3.34 (0.87-1.13) H 02/17/21 04:30 Abnormal lab findings: Abnormal Labs 02/15/21 02/15/21 02/15/21 21:58 21:58 21:58 WBC 27.7 H RBC 3.36 L MCV 121 H MCH 34 H MCHC 28 L RDW 22.7 H Seg Neuts % (Manual) 91.0 H Lymphocytes % (Manual) 6.0 L Seg Neutrophils # Man 25.2 H Lymphocytes # (Manual) PT 24.1 H INR 2.12 H APTT 54.1 H ABG pH POC ABG pCO2 POC ABG pO2 ABG Hemoglobin ABG Oxyhemoglobin ABG Sodium ABG Chloride ABG Glucose Sodium Chloride Carbon Dioxide 15 L D Glucose 117 H POC Glucose Lactic Acid Calcium 7.4 L Total Bilirubin 3.30 H AST 207 H ALT Alkaline Phosphatase 302 H Ammonia Total Protein 4.4 L Albumin 1.7 L TSH Arterial Blood Glucose Arterial Blood Ionized Calcium Ur Specific [place] Urine WBC (Auto) 02/15/21 02/15/21 02/15/21 21:58 21:58 21:58 WBC RBC MCV MCH MCHC RDW Seg Neuts % (Manual) Lymphocytes % (Manual) Seg Neutrophils # Man Lymphocytes # (Manual) PT INR APTT ABG pH POC ABG pCO2 POC ABG pO2 ABG Hemoglobin ABG Oxyhemoglobin ABG Sodium ABG Chloride ABG Glucose Sodium Chloride Carbon Dioxide Glucose POC Glucose Lactic Acid 14.50 H* Calcium Total Bilirubin AST ALT Alkaline Phosphatase Ammonia 231.0 H Total Protein Albumin TSH 11.520 H Arterial Blood Glucose Arterial Blood Ionized Calcium Ur Specific [place] Urine WBC (Auto) 02/16/21 02/16/21 02/16/21 00:19 03:10 03:10 WBC RBC MCV MCH MCHC RDW Seg Neuts % (Manual) Lymphocytes % (Manual) Seg Neutrophils # Man Lymphocytes # (Manual) PT INR APTT ABG pH 7.196 L POC ABG pCO2 POC ABG pO2 238.1 H ABG Hemoglobin ABG Oxyhemoglobin 99.0 H ABG Sodium ABG Chloride 108.0 H ABG Glucose 116 H Sodium Chloride Carbon Dioxide Glucose POC Glucose Lactic Acid 11.10 H* 9.40 H* Calcium Total Bilirubin AST ALT Alkaline Phosphatase Ammonia Total Protein Albumin TSH Arterial Blood Glucose 116 H Arterial Blood Ionized Calcium Ur Specific [place] Urine WBC (Auto) 02/16/21 02/16/21 02/16/21 04:47 04:47 04:47 WBC 29.0 H RBC MCV 107 H MCH 34 H MCHC RDW 21.3 H Seg Neuts % (Manual) Lymphocytes % (Manual) Seg Neutrophils # Man Lymphocytes # (Manual) PT 24.3 H INR 2.14 H APTT ABG pH POC ABG pCO2 POC ABG pO2 ABG Hemoglobin ABG Oxyhemoglobin ABG Sodium ABG Chloride ABG Glucose Sodium Chloride Carbon Dioxide 20 L Glucose 126 H POC Glucose Lactic Acid Calcium 6.6 L Total Bilirubin 3.40 H AST 305 H ALT 79 H Alkaline Phosphatase 287 H Ammonia Total Protein 4.5 L Albumin 1.7 L TSH Arterial Blood Glucose Arterial Blood Ionized Calcium Ur Specific [place] Urine WBC (Auto) 02/16/21 02/16/21 02/16/21 07:43 09:43 16:56 WBC RBC MCV MCH MCHC RDW Seg Neuts % (Manual) Lymphocytes % (Manual) Seg Neutrophils # Man Lymphocytes # (Manual) PT INR APTT ABG pH 7.294 L POC ABG pCO2 POC ABG pO2 73.5 L ABG Hemoglobin ABG Oxyhemoglobin 92.4 L ABG Sodium ABG Chloride 111.0 H ABG Glucose 131 H Sodium Chloride Carbon Dioxide Glucose POC Glucose 41 L Lactic Acid 11.50 H* Calcium Total Bilirubin AST ALT Alkaline Phosphatase Ammonia Total Protein Albumin TSH Arterial Blood Glucose 131 H Arterial Blood Ionized Calcium 3.8 L Ur Specific [place] Urine WBC (Auto) 02/16/21 02/16/21 02/16/21 16:59 18:00 Unknown WBC RBC MCV MCH MCHC RDW Seg Neuts % (Manual) Lymphocytes % (Manual) Seg Neutrophils # Man Lymphocytes # (Manual) PT INR APTT ABG pH POC ABG pCO2 POC ABG pO2 ABG Hemoglobin ABG Oxyhemoglobin ABG Sodium ABG Chloride ABG Glucose Sodium Chloride Carbon Dioxide Glucose POC Glucose 37 L 113 H Lactic Acid Calcium Total Bilirubin AST ALT Alkaline Phosphatase Ammonia Total Protein Albumin TSH Arterial Blood Glucose Arterial Blood Ionized Calcium Ur Specific [place] 1.049 H Urine WBC (Auto) 122.0 H 02/17/21 02/17/21 02/17/21 03:44 04:30 04:30 WBC 35.1 H RBC 3.04 L MCV 112 H MCH 34 H MCHC RDW 22.1 H Seg Neuts % (Manual) 88.0 H Lymphocytes % (Manual) 1.0 L Seg Neutrophils # Man 30.9 H Lymphocytes # (Manual) 0.4 L PT 33.9 H INR 3.34 H APTT ABG pH 7.132 L POC ABG pCO2 51.4 H POC ABG pO2 ABG Hemoglobin 11.4 L ABG Oxyhemoglobin 93.0 L ABG Sodium ABG Chloride 117.0 H ABG Glucose 130 H Sodium Chloride Carbon Dioxide Glucose POC Glucose Lactic Acid Calcium Total Bilirubin AST ALT Alkaline Phosphatase Ammonia Total Protein Albumin TSH Arterial Blood Glucose 130 H Arterial Blood Ionized Calcium 3.7 L Ur Specific [place] Urine WBC (Auto) 02/17/21 02/17/21 02/17/21 04:30 04:30 10:40 WBC RBC MCV MCH MCHC RDW Seg Neuts % (Manual) Lymphocytes % (Manual) Seg Neutrophils # Man Lymphocytes # (Manual) PT INR APTT ABG pH 7.183 L POC ABG pCO2 63.3 H POC ABG pO2 ABG Hemoglobin ABG Oxyhemoglobin ABG Sodium 148.4 H ABG Chloride 117.0 H ABG Glucose 129 H Sodium 157 H D Chloride 119.2 H Carbon Dioxide Glucose 136 H POC Glucose Lactic Acid Calcium 6.5 L Total Bilirubin 3.40 H AST 450 H ALT 101 H Alkaline Phosphatase 223 H Ammonia 100.0 H Total Protein 3.8 L Albumin 1.5 L TSH Arterial Blood Glucose 129 H Arterial Blood Ionized Calcium 3.5 L Ur Specific [place] Urine WBC (Auto)
--- NOTE | 2021-02-17 12:44 | Progress Note ---
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 Of note patient was recently discharged on 02/11 from [facility] after treatment for recurrent pleural effusion after thoracentesis x2. Upon arrival of EMS patient was found to be in PEA and required 20 minutes of ACLS to achieve ROSC and the patient was intubated. CXR revealed near complete opacification of the right hemothorax and CT head revealed no acute intracranial abnormality with possible left maxillary and sphinoed sinusitis, C-spine CT showed a large right pleural effusion, CTA chest showed very large right pleural effusion with near complete right lung atelectasis and mediastinal shift to the left and CT abdomen/pelvis showed a very large right pleural effusion which was unchanged , hepatic steatosis and cirrhosis, small amount of ascites. Patient was admitted to the hospital s/p cardiac arrest, septic shock, ESLD complicated by arthropathy, hepatic encephalopathy, ascites, pleural effusion, acute anoxic encephalopathy and large right pleural effusion. Consults were placed to critical care, neurology, GI and cardiology and WOCN. PMH: ESLD secondary to EtOH abuse, malnutrition, MDD, EV, GIB, psoriasis, hepatic encephalopathy, HTN, recurrent pleural effusions, tobacco dependence, chronic pain, heart failure with reduced EF, pemphigus foilaceous Psx: unknown Social hx: EtOH, nicotine dependence, patient has several children Promise Haile [phone] (daughter) Neuro: Acute hepatic encephalopathy, s/p cardiac arrest, possible anoxic brain injury, major depressive disorder -Neurology consulted, appreciate recommendations -02/16 CT head-image reviewed -CT head pending -Started on sedation for imaging -Patient noted to have possible seizure activity/myoclonic jerks -Given Ativan 4mg without cessation -Loaded with Keppra 1 g, Keppra 500 twice daily- DC today -Nuclear med brain flow study possible on Thursday -EEG pending -Seizure/aspiration precautions -Lactulose every 6 -Trend Ammonia -Thiamine Cardio: ST, s/p cardiac arrest, ?afib, hypotension, heart failure with reduced EF -Echocardiogram from OSH shows EF of 25 to 30% -Repeat echocardiogram pending -ASA/Lipitor -S/p amio bolus and on amio gtt -Currently on vasopressors: Levophed, vasopressin, titrate for map goal of 65 (phenyl epinephrine ordered) -BP monitoring per julian Respiratory: Acute on chronic hypoxic respiratory failure, recurrent pleural effusions, tobacco dependence -Patient was recently discharged from hospital with supplemental oxygenation, unknown if patient uses currently -Intubated in the field by EMS -OETT 6.0 at 22 at the lip changed to 7.5 OETT 02/17 -Current vent settings: AC tidal volume 450, rate of 20, PEEP of 6, FiO2 100% -02/17 CXR reviewed -Serial ABGs/CXR -VAP bundle -Wean mechanical ventilation as tolerated GI: ESLD secondary to EtOH abuse, nutrition, esophageal varices, recent GI bleed, transaminitis -GI consulted, appreciate recommendations -02/15 ammonia 231 -Hepatic panel (-) -Lactulose every 6 -Trend ammonia, LFTs -PPI : Metabolic acidosis -s/p sodium bicarb IVP -on D5HCO3 gtt -Strict intake and output -Lee catheter -Daily weights - (+) 4298 L ID: Leukocytosis, ? Sepsis, TEN, h/o pemphigus foilaceous, Fungemia -ID consulted, appreciate recommendations -Presented with hypoxia, tachycardia, leukocytosis, CXR shows consolidation -Antibiotic therapy: Azithromycin and ceftriaxone 02/16, added ligia on 02/17 -02/15 blood cultures x2 culture in progress -02/16 blood cultures x2 culture in progress (1/2 bottles with yeast) -02/15 sputum culture in process -Patient was hypothermic and required Hallie hugger now is normothermic -UA pending -UDS pending Heme: Supratherapeutic INR, coagulopathy 2/2 ESLD -Avoid chemical anticoagulation in setting of supratherapeutic INR -SCDs to bilateral lower extremity while in bed -SCDs for hemoglobin less than 7 -Trend CBC Endo: Hypoglycemia -NTR consult -Accu-Cheks every 4 -D5 bicarb gtt infusing -Nutrition consult -Avoid hypoglycemia -Hypoglycemia protocol The high probability of a clinically significant, sudden or life threatening deterioration of the [multi] system(s) required my full and direct attention, intervention and personal management. The aggregate critical care time was [60] minutes. This time is in addition to time spent performing reported procedures but includes the following: [x] Data Review and interpretation [x] Patient assessment and monitoring of vital signs [x] Documentation [x] Medication orders and management Disposition Plan: ICU Total Time Spent with Patient (Minutes): 60 History Interval history: This is a 50-year-old female with ESLD 2/2 EtOH abuse, malnutrition, major depressive disorder, EV, GIB, psoriasis, hepatic encephalopathy, HTN, recurrent pleural effusion, tobacco dependence, chronic pain, HFrEF (EF 25 to 30%), Pemphigus Foilaceous presented to the emergency department on 02/16 s/p prolonged out of hospital cardiac arrest via EMS after being unresponsiveness post shower (according to family). Of note patient was recently discharged on 02/11 from [facility] after treatment for recurrent pleural effusion after thoracentesis x2. Upon arrival of EMS patient was found to be in PEA and required 20 minutes of ACLS to achieve ROSC and the patient was intubated. CXR revealed near complete opacification of the right hemothorax and CT head revealed no acute intracranial abnormality with possible left maxillary and sphinoed sinusitis, C-spine CT showed a large right pleural effusion, CTA chest showed very large right pleural effusion with near complete right lung atelectasis and mediastinal shift to the left and CT abdomen/pelvis showed a very large right pleural effusion which was unchanged , hepatic steatosis and cirrhosis, small amount of ascites. Patient was admitted to the hospital s/p cardiac arrest, septic shock, ESLD complicated by arthropathy, hepatic encephalopathy, ascites, pleural effusion, acute anoxic encephalopathy and large right pleural effusion. Consults were placed to critical care, neurology, GI and cardiology and WOCN. 02/17/21: Overnight patients OETT needed to be changed, noted to be in afib and started on amiodorone gtt. We will obtain a CT head today and CCM will start Propofol gtt to obtain imaging. Echo done today, leukocytosis persists and noted to have hyperNa/hyper Cl. Started on HCO3 gtt. BC with yeat- started on micafungin, ID consulted Hospitalist Physical - Constitutional Vitals: Temp Pulse Resp BP Pulse Ox 99.4 F 135 H 24 114/56 100 02/17/21 03:48 02/17/21 12:22 02/17/21 11:12 02/17/21 12:22 02/17/21 12:22 General appearance: Present: other (Intubated) HEART Score - HEART Score Troponin: Troponin T < 0.010 ng/mL (0.00-0.029) 02/16/21 03:10 Results - Labs CBC & Chem 7: 02/17/21 04:30 02/17/21 04:30 Labs: Laboratory Last Values WBC 35.1 K/mm3 (4.5-11.0) H 02/17/21 04:30 RBC 3.04 M/mm3 (3.65-5.03) L 02/17/21 04:30 Hgb 10.3 gm/dl (10.1-14.3) 02/17/21 04:30 Hct 34.0 % (30.3-42.9) D 02/17/21 04:30 MCV 112 fl (79-97) H 02/17/21 04:30 MCH 34 pg (28-32) H 02/17/21 04:30 MCHC 30 % (30-34) 02/17/21 04:30 RDW 22.1 % (13.2-15.2) H 02/17/21 04:30 Plt Count 168 K/mm3 (140-440) 02/17/21 04:30 Add Manual Diff Complete 02/17/21 04:30 Total Counted 100 02/17/21 04:30 Seg Neutrophils % Retort Furnace Helper 02/17/21 04:30 Seg Neuts % (Manual) 88.0 % (40.0-70.0) H 02/17/21 04:30 Band Neutrophils % 6.0 % 02/17/21 04:30 Lymphocytes % (Manual) 1.0 % (13.4-35.0) L 02/17/21 04:30 Monocytes % (Manual) 2.0 % (0.0-7.3) 02/17/21 04:30 Metamyelocytes % 3.0 % 02/17/21 04:30 Nucleated RBC % Not Reportable 02/17/21 04:30 Seg Neutrophils # Man 30.9 K/mm3 (1.8-7.7) H 02/17/21 04:30 Band Neutrophils # 2.1 K/mm3 02/17/21 04:30 Lymphocytes # (Manual) 0.4 K/mm3 (1.2-5.4) L 02/17/21 04:30 Abs React Lymphs (Man) 0.0 K/mm3 02/17/21 04:30 Monocytes # (Manual) 0.7 K/mm3 (0.0-0.8) 02/17/21 04:30 Eosinophils # (Manual) 0.0 K/mm3 (0.0-0.4) 02/17/21 04:30 Basophils # (Manual) 0.0 K/mm3 (0.0-0.1) 02/17/21 04:30 Metamyelocytes # 1.1 K/mm3 02/17/21 04:30 Myelocytes # 0.0 K/mm3 02/17/21 04:30 Promyelocytes # 0.0 K/mm3 02/17/21 04:30 Blast Cells # 0.0 K/mm3 02/17/21 04:30 WBC Morphology Not Reportable 02/17/21 04:30 Hypersegmented Neuts Not Reportable 02/17/21 04:30 Hyposegmented Neuts Not Reportable 02/17/21 04:30 Hypogranular Neuts Not Reportable 02/17/21 04:30 Smudge Cells Not Reportable 02/17/21 04:30 Toxic Granulation Not Reportable 02/17/21 04:30 Toxic Vacuolation Not Reportable 02/17/21 04:30 Dohle Bodies Not Reportable 02/17/21 04:30 Pelger-Huet Anomaly Not Reportable 02/17/21 04:30 Talita Rods Not Reportable 02/17/21 04:30 Platelet Estimate Consistent w auto 02/17/21 04:30 Clumped Platelets Not Reportable 02/17/21 04:30 Plt Clumps, EDTA Not Reportable 02/17/21 04:30 Large Platelets Not Reportable 02/17/21 04:30 Giant Platelets Not Reportable 02/17/21 04:30 Platelet Satelliting Not Reportable 02/17/21 04:30 Plt Morphology Comment Not Reportable 02/17/21 04:30 RBC Morphology Not Reportable 02/17/21 04:30 Dimorphic RBCs Not Reportable 02/17/21 04:30 Polychromasia Few 02/17/21 04:30 Hypochromasia Few 02/17/21 04:30 Poikilocytosis Not Reportable 02/17/21 04:30 Anisocytosis Not Reportable 02/17/21 04:30 Microcytosis Not Reportable 02/17/21 04:30 Macrocytosis Not Reportable 02/17/21 04:30 Spherocytes Not Reportable 02/17/21 04:30 Pappenheimer Bodies Not Reportable 02/17/21 04:30 Sickle Cells Not Reportable 02/17/21 04:30 Target Cells Not Reportable 02/17/21 04:30 Tear Drop Cells Not Reportable 02/17/21 04:30 Ovalocytes Not Reportable 02/17/21 04:30 Helmet Cells Not Reportable 02/17/21 04:30 Arnett-Brawley Bodies Not Reportable 02/17/21 04:30 [place] Rings Not Reportable 02/17/21 04:30 [place] Cells Not Reportable 02/17/21 04:30 Bite Cells Not Reportable 02/17/21 04:30 Crenated Cell Not Reportable 02/17/21 04:30 Elliptocytes Not Reportable 02/17/21 04:30 Acanthocytes (Spur) Not Reportable 02/17/21 04:30 Rouleaux Not Reportable 02/17/21 04:30 Hemoglobin C Crystals Not Reportable 02/17/21 04:30 Schistocytes Not Reportable 02/17/21 04:30 Malaria parasites Not Reportable 02/17/21 04:30 Rangel Bodies Not Reportable 02/17/21 04:30 Hem Pathologist Commnt No 02/17/21 04:30 PT 33.9 Sec. (12.2-14.9) H 02/17/21 04:30 INR 3.34 (0.87-1.13) H 02/17/21 04:30 APTT 54.1 Sec. (24.2-36.6) H 02/15/21 21:58 ABG pH 7.183 (7.320-7.450) L 02/17/21 10:40 POC ABG pCO2 63.3 mmHg (32.0-48.0) H 02/17/21 10:40 POC ABG pO2 99.5 mmHg (83-108) 02/17/21 10:40 POC ABG HCO3 23.3 02/17/21 10:40 ABG O2 Saturation 95.8 (0-100) 02/17/21 10:40 POC ABG Base Excess -5.8 02/17/21 10:40 ABG Hemoglobin 12.0 (12.0-17.5) 02/17/21 10:40 ABG Oxyhemoglobin 94.8 (94-98) 02/17/21 10:40 ABG Methemoglobin 0.3 (0.0-1.5) 02/17/21 10:40 ABG Sodium 148.4 mmol/L (136.0-145.0) H 02/17/21 10:40 ABG Potassium 3.7 mmol/L (3.40-4.50) 02/17/21 10:40 ABG Chloride 117.0 mmol/L (98-107) H 02/17/21 10:40 ABG Glucose 129 mg/dL (65-95) H 02/17/21 10:40 Carboxyhemoglobin 0.7 (0.5-1.5) 02/17/21 10:40 FiO2 % 100.0 02/17/21 10:40 Sodium 157 mmol/L (137-145) H D 02/17/21 04:30 Potassium 4.5 mmol/L (3.6-5.0) 02/17/21 04:30 Chloride 119.2 mmol/L (98-107) H 02/17/21 04:30 Carbon Dioxide 26 mmol/L (22-30) 02/17/21 04:30 Anion Gap 16 mmol/L 02/17/21 04:30 BUN 9 mg/dL (7-17) 02/17/21 04:30 Creatinine 1.2 mg/dL (0.6-1.2) 02/17/21 04:30 Estimated GFR 47 ml/min 02/17/21 04:30 BUN/Creatinine Ratio 8 % 02/17/21 04:30 Glucose 136 mg/dL (65-100) H 02/17/21 04:30 POC Glucose 87 mg/dL (70-105) 02/17/21 04:40 Lactic Acid 11.50 mmol/L (0.7-2.0) H* 02/16/21 07:43 Calcium 6.5 mg/dL (8.4-10.2) L 02/17/21 04:30 Total Bilirubin 3.40 mg/dL (0.1-1.2) H 02/17/21 04:30 AST 450 units/L (5-40) H 02/17/21 04:30 ALT 101 units/L (7-56) H 02/17/21 04:30 Alkaline Phosphatase 223 units/L (35-129) H 02/17/21 04:30 Ammonia 100.0 umol/L (25-60) H 02/17/21 04:30 Troponin T < 0.010 ng/mL (0.00-0.029) 02/16/21 03:10 Total Protein 3.8 g/dL (6.3-8.2) L 02/17/21 04:30 Albumin 1.5 g/dL (3.9-5) L 02/17/21 04:30 Albumin/Globulin Ratio 0.7 % 02/17/21 04:30 TSH 11.520 mlU/mL (0.270-4.200) H 02/15/21 21:58 Arterial Blood Glucose 129 mg/dL (65-95) H 02/17/21 10:40 Arterial Blood Ionized Calcium 3.5 mg/dL (4.6-5.3) L 02/17/21 10:40 Urine Color Laura (Yellow) 02/16/21 Unknown Urine Turbidity Cloudy (Clear) 02/16/21 Unknown Urine pH 5.0 (5.0-7.0) 02/16/21 Unknown Ur Specific [place] 1.049 (1.003-1.030) H 02/16/21 Unknown Urine Protein 100 mg/dl mg/dL (Negative) 02/16/21 Unknown Urine Glucose (UA) Neg mg/dL (Negative) 02/16/21 Unknown Urine Ketones Neg mg/dL (Negative) 02/16/21 Unknown Urine Blood Lg (Negative) 02/16/21 Unknown Urine Nitrite Neg (Negative) 02/16/21 Unknown Urine Bilirubin Neg (Negative) 02/16/21 Unknown Urine Urobilinogen < 2.0 mg/dL (<2.0) 02/16/21 Unknown Ur Leukocyte Esterase Tr (Negative) 02/16/21 Unknown Urine WBC (Auto) 122.0 /HPF (0.0-6.0) H 02/16/21 Unknown Urine RBC (Auto) 164.0 /HPF (0.0-6.0) 02/16/21 Unknown U Epithel Cells (Auto) 2.0 /HPF (0-13.0) 02/16/21 Unknown Urine WBC Clumps 2+ /HPF 02/16/21 Unknown Urine Mucus Few /HPF 02/16/21 Unknown Urine Yeast (Budding) 2+ /HPF 02/16/21 Unknown Urine Opiates Screen Negative 02/16/21 Unknown Urine Methadone Screen Negative 02/16/21 Unknown Ur Barbiturates Screen Negative 02/16/21 Unknown Ur Phencyclidine Scrn Negative 02/16/21 Unknown Ur Amphetamines Screen Negative 02/16/21 Unknown U Benzodiazepines Scrn Negative 02/16/21 Unknown Urine Cocaine Screen Negative 02/16/21 Unknown U Marijuana (THC) Screen Negative 02/16/21 Unknown Drugs of Abuse Note Disclamer 02/16/21 Unknown Plasma/Serum Alcohol < 0.01 % (0-0.07) 02/15/21 21:58 Microbiology: Microbiology 02/16/21 00:19 Peripheral/Venous Blood Culture - Preliminary NO GROWTH AFTER 24 HOURS 02/16/21 00:54 Peripheral/Venous Blood Culture - Preliminary NO GROWTH AFTER 24 HOURS 02/15/21 21:58 Peripheral/Venous Blood Culture - Preliminary NO GROWTH AFTER 24 HOURS 02/15/21 21:58 Peripheral/Venous Blood Culture - Preliminary NO GROWTH AFTER 24 HOURS 02/15/21 21:47 Tracheal Aspirate Sputum Culture - Preliminary Lee/IV: Voiding Method Indwelling Catheter Active Medications - Current Medications Current Medications: Generic Name Dose Route Start Last Admin Trade Name Freq PRN Reason Stop Dose Admin Acetaminophen 650 mg 02/16/21 01:31 Acetaminophen 325 Mg Tab PO Q6H PRN Pain MILD(1-3)/Fever >100.5/FAULKNER Albuterol 2.5 mg 02/16/21 01:31 Albuterol 2.5 Mg/3 Ml Nebu IH Q3HRT PRN Shortness Of Breath Albuterol/Ipratropium 1 ampul 02/16/21 02:00 02/17/21 11:12 Ipratropium/Albuterol Sulfate 3 Ml Ampul.Neb IH 1 ampul Q6HRT FOREIGN Administration Aspirin 81 mg 02/16/21 10:00 02/17/21 10:39 Aspirin 81 Mg Tab Chew PO 81 mg QDAY FOREIGN Administration Atorvastatin Calcium 40 mg 02/16/21 22:00 02/16/21 21:17 Atorvastatin 40 Mg Tab PO 40 mg QHS FOREIGN Administration Dextrose 50 ml 02/16/21 17:01 Dextrose 50% In Water (25gm) 50 Ml Syringe IV Q30MIN PRN Hypoglycemia Protocol Famotidine 20 mg 02/15/21 22:00 02/16/21 21:17 Famotidine 20 Mg/2 Ml Inj IV 20 mg BID FOREIGN Administration Folic Acid 1 mg 02/16/21 10:00 02/17/21 10:40 Folic Acid 1 Mg Tab PO 1 mg DAILY FOREIGN Administration Hydrophilic Ointment 1 applic 02/15/21 21:47 Lip Therapy Vaseline TP Q2HR PRN Dry Lips Norepinephrine 4 mg in 250 mls @ 7.5 mls/hr 02/15/21 23:00 02/17/21 10:40 Levophed Drip 4 Mg/Ns 250 Ml IV 30 mcg/min TITR FOREIGN 112.5 mls/hr Administration Protocol 2 MCG/MIN Dopamine HCl/Dextrose 800 mg in 250 mls @ 2.381 mls/hr 02/15/21 23:02 02/16/21 00:00 Intropin Drip 800 Mg/D5w 250 Ml IV 02/20/21 08:01 Not Given TITR ONE Protocol 2 MCG/KG/MIN Ceftriaxone Sodium 2 gm in 100 mls @ 200 mls/hr 02/16/21 02:00 02/17/21 02:40 Rocephin/Ns 2 Gm/100 Ml IV 200 mls/hr Q24H FOREIGN Administration Protocol Azithromycin 500 mg in 250 mls @ 250 mls/hr 02/16/21 02:00 02/17/21 02:40 Zithromax/Ns IV 250 mls/hr Q24H FOREIGN Administration Protocol Sodium Chloride 500 mls @ 1 mls/hr 02/16/21 10:45 Nacl 0.9% 500 Ml IV DIRECT PRN ARTERIAL LINE FLUSH Vasopressin 20 unit/ Sodium 101 mls @ 9.09 mls/hr 02/16/21 11:00 02/17/21 02:38 Chloride IV 0.03 units/min TITR FOREIGN 9.09 mls/hr Administration Protocol 0.03 UNITS/MIN Phenylephrine HCl 100 mg/ 100 mls @ 3 mls/hr 02/16/21 13:00 Sodium Chloride IV TITR FOREIGN Protocol 50 MCG/MIN Amiodarone HCl 900 mg/ 500 mls @ 33.333 mls/hr 02/16/21 22:00 02/17/21 04:02 Dextrose IV 0.5 mg/min DIRECT FOREIGN 16.667 mls/hr Titration Protocol 1 MG/MIN Sodium Bicarbonate 150 meq/ 1,150 mls @ 150 mls/hr 02/17/21 13:00 Dextrose IV DIRECT FOREIGN Propofol 1,000 mg in 100 mls @ 1.905 mls/hr 02/17/21 13:00 Diprivan 10 Mg/Ml IV TITR FOREIGN Protocol 5 MCG/KG/MIN Lactulose 20 gm 02/16/21 12:00 02/17/21 06:23 Lactulose 20 Gm/30 Ml Oral Liqd PO 20 gm Q6HR FOREIGN Administration Lorazepam 2 mg 02/16/21 20:37 02/16/21 20:43 Lorazepam 2 Mg/Ml Vial IV 2 mg Q1H PRN Administration Seizures Miscellaneous Medication 1 applicatio 02/16/21 10:00 Betamethasone Dipropionate [Betamethasone Dipropionate 0.05% Cream] TP BID FOREIGN Multi-Ingred Cream/Lotion/Oil/Oint 1 applic 02/15/21 21:47 Mineral Oil/Petrolatum, White Ophth Oint 3.5 Gm OU Q4HR PRN Dry Eye(s) Ondansetron HCl 4 mg 02/16/21 01:31 Ondansetron 4 Mg/2 Ml Inj IV Q8H PRN Nausea And Vomiting Senna/Docusate Sodium 1 tab 02/15/21 22:00 02/16/21 21:17 Sennosides/Docusate Sodium 8.6/50 Mg Tab FEEDTUBE 1 tab BID FOREIGN Administration Sodium Chloride 10 ml 02/16/21 10:00 02/17/21 08:16 Sodium Chloride 0.9% 10 Ml Flush Syringe IV Not Given BID FOREIGN Sodium Chloride 10 ml 02/16/21 01:31 Sodium Chloride 0.9% 10 Ml Flush Syringe IV PRN PRN LINE FLUSH Thiamine HCl 100 mg 02/16/21 10:00 02/16/21 10:15 Thiamine 100 Mg Tab PO 100 mg QDAY FOREIGN Administration Nutrition/Malnutrition Assess - Dietary Evaluation Nutrition/Malnutrition Findings: Nutrition Notes Start: 02/16/21 10:50 Freq: Status: Active Protocol: Document 02/16/21 10:50 CW (Rec: 02/16/21 11:02 CW [id number]) Nutrition Notes Need for Assessment generated from: MD Order,Education Initial or Follow up Assessment Current Diagnosis Sepsis,Respiratory Failure, Stroke Other Pertinent Diagnosis Cardiac Arrest,ESLD, depressionSubstance abuse, Anoxic Encephalopathy, PNA, Current Diet NPO Labs/Tests AST 305 ALT 79 Pertinent Medications Thiamine, Folic Acid Levophed, Dopamine, Vasopressin Senokot D5 N2 at 125 ml/hr Height 5 ft 1 in Weight 63.5 kg Usual Body Weight 60 kg [place] Body Weight (kg) 47.72 BMI 26.4 Weight change and time frame Moderately stable, increase ikely related to medical equipment Weight Status Overweight Subjective/Other Information MD consult for diet education. Diet education not appropriate; Pt on mechanical vent. Recommend nutrition suuport, TF. Pt was recently d /c from this hosp (02/14/2021) and was following by RD staff for poor intakes at that time . PO intake was approximately 25% with 100% intake of ONS. Burn Absent Trauma Absent Difficulty In Swallowing Food Allergy No Current % PO Negligible Minimum of two criteria No physical signs of malnutrition #1 Nutrition Diagnosis Inadequate oral intake Etiology respiratory failure As Evidenced by Signs and Symptoms Pt on mechanical vent Is patient on ventilator? Yes Is Patient Ambulatory and/or Out of Bed No REE-([facility]-confined to bed) 1423.080 Calculation Used for Recommendations [facility] Additional Notes protein needs: 76 - 127g (1.2 - 2g/kgBW) fluid needs: 1 ml/kcal or per MD order Nutrition Intervention Change Diet Order: Recommend Initiate Nutrition support Nutrition Support: Vital AF at 50 ml/hr with a free water flush of 70 ml q4h. Kcal 1,440 Protein (gm) 90 Fluid (mL) 973 Goal #1 Initiate nutrition support Anticipated Discharge Needs: unable to determine at this time Follow-Up By: 02/18/21 Additional Comments F/U for POC/ TF consult
--- NOTE | 2021-02-17 13:01 | Progress Note ---
Assessment and Plan Encephalopathy S/P PEA arrest Large right pleural effusion End Stage Liver Disease Liver Cirrhosis Recommend: Check Echo Supportive care Agree with EEG Pverall prognosis remains poor Subjective Date of service: 02/17/21 Interval history: No acute events. Pt remains unresponsive. She is having myoclonic jerks Telemetry monitoring reveals likely sinus rhythm with artifact from myoclonic jerking Objective Vital Signs Temp Pulse Pulse Resp Resp BP Pulse Ox 02/17/21 12:22 135 H 114/56 100 02/17/21 12:00 92 02/17/21 11:12 94 H 24 02/17/21 10:00 28 H 02/17/21 08:10 93 H 103/59 100 02/17/21 08:00 92 02/17/21 04:17 80 90/48 98 02/17/21 04:00 92 02/17/21 03:48 99.4 F 02/17/21 00:06 132 H 94 02/17/21 00:00 92 02/16/21 23:46 100.1 F H 02/16/21 20:43 119 H 02/16/21 20:36 123 H 94 02/16/21 20:32 125 H 29 H 02/16/21 20:00 94 02/16/21 19:43 99.8 F H 02/16/21 16:07 128 H 110/58 99 02/16/21 16:00 119 H 94 02/16/21 14:50 126 H 42 H - Physical Examination HEENT: Positive: Other (intubated) Cardiac: Positive: Reg Rate and Rhythm Lungs: Positive: Rhonchi Abdomen: Positive: Distended Extremities: Present: edema - Labs and Meds Cardiac Enzymes 02/17/21 Range/Units 04:30 AST 450 H (5-40) units/L Coagulation 02/17/21 Range/Units 04:30 PT 33.9 H (12.2-14.9) Sec. INR 3.34 H (0.87-1.13) CBC 02/17/21 Range/Units 04:30 WBC 35.1 H (4.5-11.0) K/mm3 RBC 3.04 L (3.65-5.03) M/mm3 Hgb 10.3 (10.1-14.3) gm/dl Hct 34.0 D (30.3-42.9) % Plt Count 168 (140-440) K/mm3 Comprehensive Metabolic Panel 02/17/21 Range/Units 04:30 Sodium 157 H D (137-145) mmol/L Potassium 4.5 (3.6-5.0) mmol/L Chloride 119.2 H (98-107) mmol/L Carbon Dioxide 26 (22-30) mmol/L BUN 9 (7-17) mg/dL Creatinine 1.2 (0.6-1.2) mg/dL Glucose 136 H (65-100) mg/dL Calcium 6.5 L (8.4-10.2) mg/dL AST 450 H (5-40) units/L ALT 101 H (7-56) units/L Alkaline Phosphatase 223 H (35-129) units/L Total Protein 3.8 L (6.3-8.2) g/dL Albumin 1.5 L (3.9-5) g/dL
[2021-02-17] MEDS: SODIUM BICARBONATE 150 MEQ in DEXTROSE 5% IN WATER 1,000 ML IV SCH (14:00)
[2021-02-17] MEDS: PHENYLEPHRINE 100 MG in SODIUM CHLORIDE 0.9% 90 ML IV SCH ×2 (14:19→23:40)
[2021-02-17] MEDS: MICAFUNGIN 100 MG in SODIUM CHLORIDE 0.9% 100 ML IV SCH (16:31)
[2021-02-17] MEDS: AMIODARONE 900 MG in DEXTROSE 5% IN WATER 482 ML IV SCH (20:50)
[2021-02-18] MEDS: LACTULOSE 20 GM/30 ML ORAL LIQD PO SCH ×4 (00:51→18:04)
[2021-02-18] MEDS: cefTRIAXone/NS 2 GM/100 ML 2 GM/100 ML BAG IV SCH (02:59)
[2021-02-18] MEDS: AZITHROMYCIN/NS 500 MG/250 ML 500 MG/250 ML BAG IV SCH (02:59)
--- NOTE | 2021-02-18 04:42 | XRay Report ---
CHEST 1 VIEW 02/18/2021 3:14 AM INDICATION / CLINICAL INFORMATION: follow up respiratory failure. COMPARISON: 02/17/21 FINDINGS: SUPPORT DEVICES: Unchanged. HEART / MEDIASTINUM: Stable. LUNGS / PLEURA: Interval worsening of bilateral pulmonary opacities. Stable right effusion. No pneumo thorax. ADDITIONAL FINDINGS: No significant additional findings. IMPRESSION: 1. Interval worsening. Signer Name: Salome Solorio MD Signed: 02/18/2021 4:37 AM Workstation Name: [id number]
[2021-02-18] MEDS: NORepinephrine/NS 4 MG-250 ML 4 MG/250 ML BAG IV SCH ×10 (05:14→22:13)
[2021-02-18] MEDS: IPRATROPIUM/ALBUTEROL SULFATE 3 ML AMPUL.NEB IH SCH ×4 (06:12→20:07)
[2021-02-18] MEDS: SODIUM BICARBONATE 150 MEQ in DEXTROSE 5% IN WATER 1,000 ML IV SCH ×3 (06:15→22:15)
[2021-02-18 07:29] LABS: Hematocrit 37.9 % (30.3-42.9); Mean Corpuscular HGB Conc 32 % (30-34); Platelet Count 135 K/mm3 (140-440); Red Blood Count 3.33 M/mm3 (3.65-5.03)
[2021-02-18 07:46] LABS: Mean Corpuscular Volume 114 fl (79-97)
[2021-02-18 08:26] LABS: Albumin 0.9 g/dL (3.9-5)
[2021-02-18 08:35] LABS: Calcium 5.4 mg/dL (8.4-10.2)
[2021-02-18] MEDS ORDERED: CALCIUM GLUCONATE 1,000 MG in SODIUM CHLORIDE 0.9% 100 ML IV ONE (09:30)
[2021-02-18] MEDS: FAMOTIDINE 20 MG/2 ML INJ IV SCH ×2 (09:53→22:24)
[2021-02-18] MEDS: VASOPRESSIN 20 UNIT in SODIUM CHLORIDE 0.9% 100 ML IV SCH ×2 (09:53→23:31)
[2021-02-18] MEDS: ASPIRIN 81 MG TAB CHEW PO SCH (10:22)
[2021-02-18] MEDS: FOLIC ACID 1 MG TAB PO SCH (10:22)
[2021-02-18] MEDS: THIAMINE 100 MG TAB PO SCH (10:23)
[2021-02-18] MEDS: SENNOSIDES/DOCUSATE SODIUM 8.6/50 MG TAB FEEDTUBE SCH ×2 (10:23→22:24)
--- NOTE | 2021-02-18 11:04 | Progress Note ---
Assessment and Plan 50 y/o female with multiple medical problems with out of hospital cardiac arrest, now intubated, not on sedation on multiple pressors with likely anoxic brain injury. 02/18/21: CT head today, hopefully. Echo done yesterday showing EF of 65%. Previous echo in the [facility], December of this year shows an EF of 25%. Family does not know much about history or care to help confirm one way or the other. Mental status is still the same, unresponsive on no sedation. Once imaging complete can speak with family about goals of care. Agree with stopping amio as this was likely artifact from myoclonic jerks. Overall prognosis is very very poor. IMS started on antifungal given one culture with yeast. Not speciated yet 02/17/21: CT head without contrast today. Will increase rate on D5W to 150. Stopped all normal saline drips given hyperchloremia. Repeat ABG in 2 hours. Continue vasopressors to keep map greater than 65. Echo was being done at bedside and patient's heart rate is not as fast as monitor. Maybe picking up some artifact from myclonic jerking. White count continues to increase, continue abx therapy for now, could be reactive, however patient did have fever last night. Will have to give her some sedation for CT to get quality images so will start diprovan drip. Very very guarded prognosis. Follow up serologies. 1. Repeat head CT tomorrow 2. Agree with EEG 3. No sedatives, jerking is not seizures, but myoclonic jerks, likely from anoxia 4. COntinue vasopressors and wean as tolerated 5. Agree with abx therapy 6. Long discussion at bedside with one son and one daughter. Daughter attempted to provide timeline and patient was likely down for 20+ minutes before ROSC was achieved. Son is very upset and angry, feels that hospital discharged his mother to fast. States that they hate this hospital and they did not want their mother here. She always goes to [facility] which is an accurate statement. A lot of history obtained from [facility]. Skin condition is chronic and not new. Biopsy proven Pemphigus Foliaceus and patient was suppose to follow up with [facility] next month. She also has systolic heart failure with an EF of 25-30%. She does not have a device. She has Hep C and severe liver disease from this. She also has chronic pain as well. Attempted to explain in detail the severity of illness and multisystem organ failure that their family member was experiencing even prior to admission. Will have follow discussions with them once we have repeat head CT and EEG. CCT 31 minutes. Subjective Date of service: 02/18/21 Interval history: Remains unresponsive. Finally jerking under control on Diprovan 10. Also alli arreola on. Has dominguez and FMS. Remainder is negative. Objective Vital Signs - 12hr 02/17/21 02/18/21 02/18/21 23:22 00:00 04:00 Pulse Rate 78 88 71 Pulse Rate [ Anterior Bilateral Bases ] Respiratory Rate [Anterior Bilateral Bases ] Respiratory Rate [ Generalized] Blood Pressure 76/45 148/81 O2 Sat by Pulse 96 92 92 Oximetry 02/18/21 02/18/21 02/18/21 07:39 08:00 08:01 Pulse Rate 77 Pulse Rate [ 80 Anterior Bilateral Bases ] Respiratory 20 Rate [Anterior Bilateral Bases ] Respiratory Rate [ Generalized] Blood Pressure 119/74 O2 Sat by Pulse 99 97 Oximetry 02/18/21 10:00 Pulse Rate Pulse Rate [ Anterior Bilateral Bases ] Respiratory Rate [Anterior Bilateral Bases ] Respiratory 28 H Rate [ Generalized] Blood Pressure O2 Sat by Pulse Oximetry Constitutional: comatose, appears uncomfortable, other (myoclonic jerks) ENT: other (orally intubated and not sedated) Neck: supple Ascultation: Right: diminished breath sounds, Left: clear Percussion: Right: dull CBC and BMP: 02/18/21 07:15 02/18/21 07:15 ABG, PT/INR, D-dimer: ABG ABG pH 7.278 (7.320-7.450) L 02/18/21 04:18 POC ABG pCO2 45.7 mmHg (32.0-48.0) 02/18/21 04:18 POC ABG pO2 73.0 mmHg (83-108) L 02/18/21 04:18 POC ABG HCO3 20.9 02/18/21 04:18 ABG O2 Saturation 93.0 (0-100) 02/18/21 04:18 PT/INR, D-dimer PT 33.9 Sec. (12.2-14.9) H 02/17/21 04:30 INR 3.34 (0.87-1.13) H 02/17/21 04:30 Abnormal lab findings: Abnormal Labs 02/15/21 02/15/21 02/15/21 21:58 21:58 21:58 WBC 27.7 H RBC 3.36 L MCV 121 H MCH 34 H MCHC 28 L RDW 22.7 H Plt Count Seg Neuts % (Manual) 91.0 H Lymphocytes % (Manual) 6.0 L Seg Neutrophils # Man 25.2 H Lymphocytes # (Manual) PT 24.1 H INR 2.12 H APTT 54.1 H ABG pH POC ABG pCO2 POC ABG pO2 ABG Hemoglobin ABG Oxyhemoglobin ABG Sodium ABG Potassium ABG Chloride ABG Glucose Carboxyhemoglobin Sodium Chloride Carbon Dioxide 15 L D Glucose 117 H POC Glucose Lactic Acid Calcium 7.4 L Total Bilirubin 3.30 H AST 207 H ALT Alkaline Phosphatase 302 H Ammonia Total Protein 4.4 L Albumin 1.7 L TSH Arterial Blood Glucose Arterial Blood Ionized Calcium Ur Specific [place] Urine WBC (Auto) 02/15/21 02/15/21 02/15/21 21:58 21:58 21:58 WBC RBC MCV MCH MCHC RDW Plt Count Seg Neuts % (Manual) Lymphocytes % (Manual) Seg Neutrophils # Man Lymphocytes # (Manual) PT INR APTT ABG pH POC ABG pCO2 POC ABG pO2 ABG Hemoglobin ABG Oxyhemoglobin ABG Sodium ABG Potassium ABG Chloride ABG Glucose Carboxyhemoglobin Sodium Chloride Carbon Dioxide Glucose POC Glucose Lactic Acid 14.50 H* Calcium Total Bilirubin AST ALT Alkaline Phosphatase Ammonia 231.0 H Total Protein Albumin TSH 11.520 H Arterial Blood Glucose Arterial Blood Ionized Calcium Ur Specific [place] Urine WBC (Auto) 02/16/21 02/16/21 02/16/21 00:19 03:10 03:10 WBC RBC MCV MCH MCHC RDW Plt Count Seg Neuts % (Manual) Lymphocytes % (Manual) Seg Neutrophils # Man Lymphocytes # (Manual) PT INR APTT ABG pH 7.196 L POC ABG pCO2 POC ABG pO2 238.1 H ABG Hemoglobin ABG Oxyhemoglobin 99.0 H ABG Sodium ABG Potassium ABG Chloride 108.0 H ABG Glucose 116 H Carboxyhemoglobin Sodium Chloride Carbon Dioxide Glucose POC Glucose Lactic Acid 11.10 H* 9.40 H* Calcium Total Bilirubin AST ALT Alkaline Phosphatase Ammonia Total Protein Albumin TSH Arterial Blood Glucose 116 H Arterial Blood Ionized Calcium Ur Specific [place] Urine WBC (Auto) 02/16/21 02/16/21 02/16/21 04:47 04:47 04:47 WBC 29.0 H RBC MCV 107 H MCH 34 H MCHC RDW 21.3 H Plt Count Seg Neuts % (Manual) Lymphocytes % (Manual) Seg Neutrophils # Man Lymphocytes # (Manual) PT 24.3 H INR 2.14 H APTT ABG pH POC ABG pCO2 POC ABG pO2 ABG Hemoglobin ABG Oxyhemoglobin ABG Sodium ABG Potassium ABG Chloride ABG Glucose Carboxyhemoglobin Sodium Chloride Carbon Dioxide 20 L Glucose 126 H POC Glucose Lactic Acid Calcium 6.6 L Total Bilirubin 3.40 H AST 305 H ALT 79 H Alkaline Phosphatase 287 H Ammonia Total Protein 4.5 L Albumin 1.7 L TSH Arterial Blood Glucose Arterial Blood Ionized Calcium Ur Specific [place] Urine WBC (Auto) 02/16/21 02/16/21 02/16/21 07:43 09:43 16:56 WBC RBC MCV MCH MCHC RDW Plt Count Seg Neuts % (Manual) Lymphocytes % (Manual) Seg Neutrophils # Man Lymphocytes # (Manual) PT INR APTT ABG pH 7.294 L POC ABG pCO2 POC ABG pO2 73.5 L ABG Hemoglobin ABG Oxyhemoglobin 92.4 L ABG Sodium ABG Potassium ABG Chloride 111.0 H ABG Glucose 131 H Carboxyhemoglobin Sodium Chloride Carbon Dioxide Glucose POC Glucose 41 L Lactic Acid 11.50 H* Calcium Total Bilirubin AST ALT Alkaline Phosphatase Ammonia Total Protein Albumin TSH Arterial Blood Glucose 131 H Arterial Blood Ionized Calcium 3.8 L Ur Specific [place] Urine WBC (Auto) 02/16/21 02/16/21 02/16/21 16:59 18:00 Unknown WBC RBC MCV MCH MCHC RDW Plt Count Seg Neuts % (Manual) Lymphocytes % (Manual) Seg Neutrophils # Man Lymphocytes # (Manual) PT INR APTT ABG pH POC ABG pCO2 POC ABG pO2 ABG Hemoglobin ABG Oxyhemoglobin ABG Sodium ABG Potassium ABG Chloride ABG Glucose Carboxyhemoglobin Sodium Chloride Carbon Dioxide Glucose POC Glucose 37 L 113 H Lactic Acid Calcium Total Bilirubin AST ALT Alkaline Phosphatase Ammonia Total Protein Albumin TSH Arterial Blood Glucose Arterial Blood Ionized Calcium Ur Specific [place] 1.049 H Urine WBC (Auto) 122.0 H 02/17/21 02/17/21 02/17/21 03:44 04:30 04:30 WBC 35.1 H RBC 3.04 L MCV 112 H MCH 34 H MCHC RDW 22.1 H Plt Count Seg Neuts % (Manual) 88.0 H Lymphocytes % (Manual) 1.0 L Seg Neutrophils # Man 30.9 H Lymphocytes # (Manual) 0.4 L PT 33.9 H INR 3.34 H APTT ABG pH 7.132 L POC ABG pCO2 51.4 H POC ABG pO2 ABG Hemoglobin 11.4 L ABG Oxyhemoglobin 93.0 L ABG Sodium ABG Potassium ABG Chloride 117.0 H ABG Glucose 130 H Carboxyhemoglobin Sodium Chloride Carbon Dioxide Glucose POC Glucose Lactic Acid Calcium Total Bilirubin AST ALT Alkaline Phosphatase Ammonia Total Protein Albumin TSH Arterial Blood Glucose 130 H Arterial Blood Ionized Calcium 3.7 L Ur Specific [place] Urine WBC (Auto) 02/17/21 02/17/21 02/17/21 04:30 04:30 10:40 WBC RBC MCV MCH MCHC RDW Plt Count Seg Neuts % (Manual) Lymphocytes % (Manual) Seg Neutrophils # Man Lymphocytes # (Manual) PT INR APTT ABG pH 7.183 L POC ABG pCO2 63.3 H POC ABG pO2 ABG Hemoglobin ABG Oxyhemoglobin ABG Sodium 148.4 H ABG Potassium ABG Chloride 117.0 H ABG Glucose 129 H Carboxyhemoglobin Sodium 157 H D Chloride 119.2 H Carbon Dioxide Glucose 136 H POC Glucose Lactic Acid Calcium 6.5 L Total Bilirubin 3.40 H AST 450 H ALT 101 H Alkaline Phosphatase 223 H Ammonia 100.0 H Total Protein 3.8 L Albumin 1.5 L TSH Arterial Blood Glucose 129 H Arterial Blood Ionized Calcium 3.5 L Ur Specific [place] Urine WBC (Auto) 02/17/21 02/18/21 02/18/21 14:50 04:18 05:01 WBC RBC MCV MCH MCHC RDW Plt Count Seg Neuts % (Manual) Lymphocytes % (Manual) Seg Neutrophils # Man Lymphocytes # (Manual) PT INR APTT ABG pH 7.221 L 7.278 L POC ABG pCO2 53.8 H POC ABG pO2 73.0 L ABG Hemoglobin 11.6 L 11.2 L ABG Oxyhemoglobin 92.4 L ABG Sodium 147.0 H ABG Potassium 3.1 L ABG Chloride 116.0 H 112.0 H ABG Glucose 127 H 177 H Carboxyhemoglobin 0.3 L Sodium Chloride Carbon Dioxide Glucose POC Glucose 146 H Lactic Acid Calcium Total Bilirubin AST ALT Alkaline Phosphatase Ammonia Total Protein Albumin TSH Arterial Blood Glucose 127 H 177 H Arterial Blood Ionized Calcium 3.4 L 3.1 L Ur Specific [place] Urine WBC (Auto) 02/18/21 02/18/21 02/18/21 07:15 07:15 09:06 WBC 32.8 H RBC 3.33 L MCV 114 H MCH 36 H MCHC RDW 23.0 H Plt Count 135 L Seg Neuts % (Manual) Lymphocytes % (Manual) Seg Neutrophils # Man Lymphocytes # (Manual) PT INR APTT ABG pH POC ABG pCO2 POC ABG pO2 ABG Hemoglobin ABG Oxyhemoglobin ABG Sodium ABG Potassium ABG Chloride ABG Glucose Carboxyhemoglobin Sodium 151 H Chloride 109.5 H Carbon Dioxide Glucose 152 H POC Glucose 162 H Lactic Acid Calcium 5.4 L* D Total Bilirubin 4.30 H AST 277 H ALT 5 L Alkaline Phosphatase 230 H Ammonia Total Protein 3.8 L Albumin 0.9 L TSH Arterial Blood Glucose Arterial Blood Ionized Calcium Ur Specific [place] Urine WBC (Auto)
--- NOTE | 2021-02-18 12:32 | Consultation ---
History of Present Illness - Reason for Consult Consult date: 02/18/21 - History of Present Illness 50-year-old female past medical history ESLD, alcohol abuse, malnutrition, esophageal varices, psoriasis admitted after having cardiac arrest. She was found unresponsive in the shower. She had recently been treated for pneumonia and pulmonary embolism. After being found unresponsive her daughter performed CPR. She is now in the ICU, unresponsive on no sedation. Blood cultures found to have yeast. Afebrile with low temperatures, white count 32.8. Blood cultures with yeast, currently on micafungin. Imaging personally reviewed: Chest x-ray: Bilateral pulmonary opacities Past History Past Medical History: hepatitis, hypertension, liver disease, other (CHF, Pemphigus Foilaceous, biopsy proven) Social history: alcohol abuse Family history: hypertension Medications and Allergies Allergies Allergy/AdvReac Type Severity Reaction Status Date / Time fentanyl Allergy Severe Swelling Verified 02/16/21 14:26 ciprofloxacin AdvReac Severe Rash Verified 02/16/21 14:27 Home Medications Medication Instructions Recorded Confirmed Last Taken Type Betamethasone Dipropionate 1 applicatio TP BID 02/09/21 02/09/21 Unknown History [Betamethasone Dipropionate 0.05% Cream] Famotidine [Pepcid] 20 mg PO BID 02/09/21 02/09/21 Unknown History Furosemide [Lasix TAB] 20 mg PO QDAY 02/09/21 02/09/21 Unknown History Gabapentin 400 mg PO Q8HR 02/09/21 02/09/21 Unknown History Hydroxyzine HCl [hydrOXYzine] 50 mg PO Q8HR PRN 02/09/21 02/09/21 Unknown History Nicotine [Habitrol] 1 patch TP DAILY 02/09/21 02/09/21 Unknown History Spironolactone [Aldactone] 25 mg PO QDAY 02/09/21 02/09/21 Unknown History carvediloL [Coreg] 3.125 mg PO BID 02/09/21 02/09/21 Unknown History Folic Acid [Folvite] 1 mg PO DAILY #30 tablet 02/12/21 Unknown Rx Thiamine [Vitamin B-1] 100 mg PO QDAY #30 tablet 02/12/21 Unknown Rx hydrOXYzine PAMOATE [Vistaril] 50 mg PO Q8H PRN #30 capsule 02/12/21 Unknown Rx Nicotine [Habitrol] 14 mg TD DAILY #7 patch 02/14/21 Unknown Rx oxyCODONE /ACETAMINOPHEN [Percocet 1 tab PO Q12H PRN #30 tablet 02/14/21 Unknown Rx 5/325 mg] Active Meds: Active Medications Acetaminophen (Acetaminophen 325 Mg Tab) 650 mg PO Q6H PRN PRN Reason: Pain MILD(1-3)/Fever >100.5/FAULKNER Albuterol (Albuterol 2.5 Mg/3 Ml Nebu) 2.5 mg IH Q3HRT PRN PRN Reason: Shortness Of Breath Albuterol/Ipratropium (Ipratropium/Albuterol Sulfate 3 Ml Ampul.Neb) 1 ampul IH Q6HRT [facility] Last Admin: 02/18/21 08:00 Dose: 1 ampul Documented by: Aspirin (Aspirin 81 Mg Tab Chew) 81 mg PO QDAY [facility] Last Admin: 02/18/21 10:22 Dose: Not Given Documented by: Atorvastatin Calcium (Atorvastatin 40 Mg Tab) 40 mg PO QHS [facility] Last Admin: 02/17/21 21:22 Dose: 40 mg Documented by: Dextrose (Dextrose 50% In Water (25gm) 50 Ml Syringe) 50 ml IV Q30MIN PRN; Protocol PRN Reason: Hypoglycemia Famotidine (Famotidine 20 Mg/2 Ml Inj) 20 mg IV BID [facility] Last Admin: 02/18/21 09:53 Dose: 20 mg Documented by: Folic Acid (Folic Acid 1 Mg Tab) 1 mg PO DAILY [facility] Last Admin: 02/18/21 10:22 Dose: Not Given Documented by: Hydrophilic Ointment (Lip Therapy Vaseline) 1 applic TP Q2HR PRN PRN Reason: Dry Lips Norepinephrine (Levophed Drip 4 Mg/Ns 250 Ml) 4 mg in 250 mls @ 7.5 mls/hr IV TITR FOREIGN; Protocol Last Admin: 02/18/21 12:27 Dose: 30 mcg/min, 112.5 mls/hr Documented by: Dopamine HCl/Dextrose (Intropin Drip 800 Mg/D5w 250 Ml) 800 mg in 250 mls @ 2.3 81 mls/hr IV TITR ONE; Protocol Stop: 02/20/21 08:01 Last Admin: 02/16/21 00:00 Dose: Not Given Documented by: Ceftriaxone Sodium (Rocephin/Ns 2 Gm/100 Ml) 2 gm in 100 mls @ 200 mls/hr IV Q24H FOREIGN; Protocol Last Admin: 02/18/21 02:59 Dose: 200 mls/hr Documented by: Azithromycin (Zithromax/Ns) 500 mg in 250 mls @ 250 mls/hr IV Q24H FOREIGN; Protocol Last Admin: 02/18/21 02:59 Dose: 250 mls/hr Documented by: Sodium Chloride (Nacl 0.9% 500 Ml) 500 mls @ 1 mls/hr IV DIRECT PRN PRN Reason: ARTERIAL LINE FLUSH Vasopressin 20 unit/ Sodium (Chloride) 101 mls @ 9.09 mls/hr IV TITR FOREIGN; Protocol Last Admin: 02/18/21 09:53 Dose: 0.03 units/min, 9.09 mls/hr Documented by: Phenylephrine HCl 100 mg/ (Sodium Chloride) 100 mls @ 3 mls/hr IV TITR FOREIGN; Protocol Last Titration: 02/18/21 10:00 Dose: 0 mcg/min, 0 mls/hr Documented by: Sodium Bicarbonate 150 meq/ (Dextrose) 1,150 mls @ 150 mls/hr IV DIRECT [facility] Last Admin: 02/18/21 06:15 Dose: 150 mls/hr Documented by: Propofol (Diprivan 10 Mg/Ml) 1,000 mg in 100 mls @ 1.905 mls/hr IV TITR FOREIGN; Protocol Last Titration: 02/18/21 07:50 Dose: 0 mcg/kg/min, 0 mls/hr Documented by: Micafungin Sodium 100 mg/ (Sodium Chloride) 100 mls @ 100 mls/hr IV Q24H FOREIGN; Protocol Last Admin: 02/17/21 16:31 Dose: 100 mls/hr Documented by: Lactulose (Lactulose 20 Gm/30 Ml Oral Liqd) 20 gm PO Q6HR [facility] Last Admin: 02/18/21 07:14 Dose: 20 gm Documented by: Lorazepam (Lorazepam 2 Mg/Ml Vial) 2 mg IV Q1H PRN PRN Reason: Seizures Last Admin: 02/16/21 20:43 Dose: 2 mg Documented by: Miscellaneous Medication (Betamethasone Dipropionate [Betamethasone Dipropionate 0.05% Cream]) 1 applicatio TP BID FOREIGN Multi-Ingred Cream/Lotion/Oil/Oint (Mineral Oil/Petrolatum, White Ophth Oint 3.5 Gm) 1 applic OU Q4HR PRN PRN Reason: Dry Eye(s) Ondansetron HCl (Ondansetron 4 Mg/2 Ml Inj) 4 mg IV Q8H PRN PRN Reason: Nausea And Vomiting Senna/Docusate Sodium (Sennosides/Docusate Sodium 8.6/50 Mg Tab) 1 tab FEEDTUBE BID [facility] Last Admin: 02/18/21 10:23 Dose: Not Given Documented by: Sodium Chloride (Sodium Chloride 0.9% 10 Ml Flush Syringe) 10 ml IV BID [facility] Last Admin: 02/18/21 09:53 Dose: 10 ml Documented by: Sodium Chloride (Sodium Chloride 0.9% 10 Ml Flush Syringe) 10 ml IV PRN PRN PRN Reason: LINE FLUSH Thiamine HCl (Thiamine 100 Mg Tab) 100 mg PO QDAY [facility] Last Admin: 02/18/21 10:23 Dose: Not Given Documented by: Review of Systems ROS unobtainable: due to endotracheal tube, due to mental status Physical Examination - Physical Exam Narrative exam: Physical Exam: Constitutional: Intubated, nonresponsive Head, Ears, Nose: Normocephalic, atraumatic. External ears, nose normal Eyes: Conjunctivae/corneas clear. No icterus. No ptosis. Neck: ETT Oral: ETT Cardiovascular: S1, S2 normal. Respiratory: Good air entry, clear to auscultation bilaterally GI: Soft, non-tender; bowel sounds normal. No peritoneal signs. Musculoskeletal: No pedal edema, no cyanosis. Skin: No rash or abscess Hem/Lymphatic: No palpable cervical or supraclavicular nodes. No lymphangitis Psych: Nonresponsive Neurological: Nonresponsive - Constitutional Vitals: Vital Signs Temp Pulse Resp BP Pulse Ox 97.5 F L 85 28 H 95/52 97 02/17/21 20:00 02/18/21 11:42 02/18/21 10:00 02/18/21 11:42 02/18/21 11:42 Temperature -Last 24 Hours Temperature 97.5 F Temperature 97.0 F Results - Labs CBC & Chem 7: 02/18/21 07:15 02/18/21 07:15 Labs: Abnormal lab results 02/17/21 02/18/21 02/18/21 Range/Units 14:50 04:18 05:01 WBC (4.5-11.0) K/mm3 RBC (3.65-5.03) M/mm3 MCV (79-97) fl MCH (28-32) pg RDW (13.2-15.2) % Plt Count (140-440) K/mm3 ABG pH 7.221 L 7.278 L (7.320-7.450) POC ABG pCO2 53.8 H (32.0-48.0) mmHg POC ABG pO2 73.0 L (83-108) mmHg ABG Hemoglobin 11.6 L 11.2 L (12.0-17.5) ABG Oxyhemoglobin 92.4 L (94-98) ABG Sodium 147.0 H (136.0-145.0) mmol/L ABG Potassium 3.1 L (3.40-4.50) mmol/L ABG Chloride 116.0 H 112.0 H (98-107) mmol/L ABG Glucose 127 H 177 H (65-95) mg/dL Carboxyhemoglobin 0.3 L (0.5-1.5) Sodium (137-145) mmol/L Chloride (98-107) mmol/L Glucose (65-100) mg/dL POC Glucose 146 H (70-105) mg/dL Calcium (8.4-10.2) mg/dL Total Bilirubin (0.1-1.2) mg/dL AST (5-40) units/L ALT (7-56) units/L Alkaline Phosphatase (35-129) units/L Total Protein (6.3-8.2) g/dL Albumin (3.9-5) g/dL Arterial Blood Glucose 127 H 177 H (65-95) mg/dL Arterial Blood Ionized Calcium 3.4 L 3.1 L (4.6-5.3) mg/dL 02/18/21 02/18/21 02/18/21 Range/Units 07:15 07:15 09:06 WBC 32.8 H (4.5-11.0) K/mm3 RBC 3.33 L (3.65-5.03) M/mm3 MCV 114 H (79-97) fl MCH 36 H (28-32) pg RDW 23.0 H (13.2-15.2) % Plt Count 135 L (140-440) K/mm3 ABG pH (7.320-7.450) POC ABG pCO2 (32.0-48.0) mmHg POC ABG pO2 (83-108) mmHg ABG Hemoglobin (12.0-17.5) ABG Oxyhemoglobin (94-98) ABG Sodium (136.0-145.0) mmol/L ABG Potassium (3.40-4.50) mmol/L ABG Chloride (98-107) mmol/L ABG Glucose (65-95) mg/dL Carboxyhemoglobin (0.5-1.5) Sodium 151 H (137-145) mmol/L Chloride 109.5 H (98-107) mmol/L Glucose 152 H (65-100) mg/dL POC Glucose 162 H (70-105) mg/dL Calcium 5.4 L* D (8.4-10.2) mg/dL Total Bilirubin 4.30 H (0.1-1.2) mg/dL AST 277 H (5-40) units/L ALT 5 L (7-56) units/L Alkaline Phosphatase 230 H (35-129) units/L Total Protein 3.8 L (6.3-8.2) g/dL Albumin 0.9 L (3.9-5) g/dL Arterial Blood Glucose (65-95) mg/dL Arterial Blood Ionized Calcium (4.6-5.3) mg/dL 02/18/21 Range/Units 11:27 WBC (4.5-11.0) K/mm3 RBC (3.65-5.03) M/mm3 MCV (79-97) fl MCH (28-32) pg RDW (13.2-15.2) % Plt Count (140-440) K/mm3 ABG pH (7.320-7.450) POC ABG pCO2 (32.0-48.0) mmHg POC ABG pO2 (83-108) mmHg ABG Hemoglobin (12.0-17.5) ABG Oxyhemoglobin (94-98) ABG Sodium (136.0-145.0) mmol/L ABG Potassium (3.40-4.50) mmol/L ABG Chloride (98-107) mmol/L ABG Glucose (65-95) mg/dL Carboxyhemoglobin (0.5-1.5) Sodium (137-145) mmol/L Chloride (98-107) mmol/L Glucose (65-100) mg/dL POC Glucose 172 H (70-105) mg/dL Calcium (8.4-10.2) mg/dL Total Bilirubin (0.1-1.2) mg/dL AST (5-40) units/L ALT (7-56) units/L Alkaline Phosphatase (35-129) units/L Total Protein (6.3-8.2) g/dL Albumin (3.9-5) g/dL Arterial Blood Glucose (65-95) mg/dL Arterial Blood Ionized Calcium (4.6-5.3) mg/dL Assessment and Plan Cultures: Blood culture 02/16/2021 Yeast A/P: 50-year-old female past medical history ESLD, alcohol abuse, malnutrition, esophageal varices, psoriasis #Acute sepsis: With hypothermia and leukocytosis. Secondary to candidemia as well as critical illness #Candidemia: Await speciation and DICK from blood cultures. #Cardiac arrest: Currently unresponsive, poor prognosis #ESLD Recs: -Follow blood culture data -Repeat blood cultures -Obtain TTE -Continue micafungin pending finalized culture data. Ideally could transfer to fluconazole if Emiliana albicans -Agree with goals of care discussion with family Thank you for the consult, we will continue to follow. Shanika Elizabeth MD [facility] ([facility] O: [phone] F: [phone]
--- NOTE | 2021-02-18 12:43 | Progress Note ---
Assessment and Plan - Patient Problems (1) Cardiopulmonary arrest Current Visit: Yes Status: Acute Plan to address problem: 50-year-old woman with multiple severe comorbidities including end-stage liver disease, chronic alcohol abuse, presents to the hospital following an out of hospital cardiopulmonary arrest. Major finding on chest x-ray is total whiteout of the right lung field due to a large right pleural effusion. Cardiac work-up so far has been negative, with serial negative ECGs, stable sinus rhythm, no arrhythmias, stable blood pressure. Echocardiogram shows normal left ventricular systolic function with ejection fraction 60 to 65%. Conservative cardiac monitoring, defer to ICU, pulmonary and internal medicine teams for further evaluation and management. Subjective Date of service: 02/18/21 Interval history: Patient is unresponsive, on the vent. Currently a normal sinus rhythm at 77, systolic blood pressure 133. Patient presented to the hospital with an out of hospital cardiopulmonary arrest. Major finding on initial evaluation is total whiteout of the right lung field on chest x-ray due to a large pleural effusion. Conversely, no acute cardiac findings. ECG was normal sinus with no ischemic changes. Echocardiogram showed normal left ventricular systolic ejection fraction of 60 to 65%. Objective Vital Signs Temp Pulse Pulse Pulse Resp Resp Resp 02/18/21 11:42 85 02/18/21 10:00 28 H 02/18/21 08:01 80 20 02/18/21 08:00 02/18/21 07:39 77 02/18/21 04:00 71 02/18/21 00:00 88 02/17/21 23:22 78 02/17/21 22:00 28 H 02/17/21 20:00 97.5 F L 91 H 02/17/21 19:04 104 H 20 02/17/21 18:53 104 H 02/17/21 16:32 88 02/17/21 16:28 87 20 02/17/21 16:00 97.0 F L BP Pulse Ox 02/18/21 11:42 95/52 97 02/18/21 10:00 02/18/21 08:01 02/18/21 08:00 97 02/18/21 07:39 119/74 99 02/18/21 04:00 148/81 92 02/18/21 00:00 92 02/17/21 23:22 76/45 96 02/17/21 22:00 02/17/21 20:00 02/17/21 19:04 02/17/21 18:53 113/57 100 02/17/21 16:32 107/54 99 02/17/21 16:28 02/17/21 16:00 92 - Physical Examination General: Other (Unresponsive, on the vent) HEENT: Positive: Other (Pupils fixed) Neck: Positive: neck supple Cardiac: Positive: Reg Rate and Rhythm Lungs: Positive: Decreased Breath Sounds Neuro: Positive: Other (Unresponsive, on the vent) Abdomen: Positive: Distended Skin: Positive: Clear Extremities: Absent: edema - Labs and Meds Cardiac Enzymes 02/18/21 Range/Units 07:15 AST 277 H (5-40) units/L CBC 02/18/21 Range/Units 07:15 WBC 32.8 H (4.5-11.0) K/mm3 RBC 3.33 L (3.65-5.03) M/mm3 Hgb 12.0 (10.1-14.3) gm/dl Hct 37.9 (30.3-42.9) % Plt Count 135 L (140-440) K/mm3 Comprehensive Metabolic Panel 02/18/21 Range/Units 07:15 Sodium 151 H (137-145) mmol/L Potassium 3.9 (3.6-5.0) mmol/L Chloride 109.5 H (98-107) mmol/L Carbon Dioxide 27 (22-30) mmol/L BUN 12 (7-17) mg/dL Creatinine 1.0 (0.6-1.2) mg/dL Glucose 152 H (65-100) mg/dL Calcium 5.4 L* D (8.4-10.2) mg/dL AST 277 H (5-40) units/L ALT 5 L (7-56) units/L Alkaline Phosphatase 230 H (35-129) units/L Total Protein 3.8 L (6.3-8.2) g/dL Albumin 0.9 L (3.9-5) g/dL
[2021-02-18] MEDS: PHENYLEPHRINE 100 MG in SODIUM CHLORIDE 0.9% 90 ML IV SCH (14:26)
[2021-02-18] MEDS: MICAFUNGIN 100 MG in SODIUM CHLORIDE 0.9% 100 ML IV SCH (16:17)
--- NOTE | 2021-02-18 16:19 | Progress Note ---
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 Of note patient was recently discharged on 02/[address] [facility] after treatment for recurrent pleural effusion after thoracentesis x2. Upon arrival of EMS patient was found to be in PEA and required 20 minutes of ACLS to achieve ROSC and the patient was intubated. CXR revealed near complete opacification of the right hemothorax and CT head revealed no acute intracranial abnormality with possible left maxillary and sp hinoed sinusitis, C-spine CT showed a large right pleural effusion, CTA chest showed very large right pleural effusion with near complete right lung atelectasis and mediastinal shift to the left and CT abdomen/pelvis showed a very large right pleural effusion which was unchanged , hepatic steatosis and cirrhosis, small amount of ascites. Patient was admitted to the hospital s/p cardiac arrest, septic shock, ESLD complicated by arthropathy, hepatic encephalopathy, ascites, pleural effusion, acute anoxic encephalopathy and large right pleural effusion. Consults were placed to critical care, neurology, GI and cardiology and WOCN. PMH: ESLD secondary to EtOH abuse, malnutrition, MDD, EV, GIB, psoriasis, hepatic encephalopathy, HTN, recurrent pleural effusions, tobacco dependence, chronic pain, heart failure with reduced EF, pemphigus foilaceous Psx: unknown Social hx: EtOH, nicotine dependence, patient has several children Promise Haile [phone] (daughter) Neuro: Acute hepatic encephalopathy, s/p cardiac arrest, possible anoxic brain injury, major depressive disorder -Neurology consulted, appreciate recommendations -02/16 CT head-image reviewed -CT head pending -Started on sedation for imaging -Patient noted to have possible seizure activity/myoclonic jerks -Given Ativan 4mg without cessation -Loaded with Keppra 1 g, Keppra 500 twice daily- DC today -Nuclear med brain flow study possible on Thursday -EEG pending -Seizure/aspiration precautions -Lactulose every 6 -Trend Ammonia -Thiamine Cardio: ST, s/p cardiac arrest, ?afib, hypotension, heart failure with reduced EF -Echocardiogram from OSH shows EF of 25 to 30% -Repeat echocardiogram pending -ASA/Lipitor -S/p amio bolus and on amio gtt -Currently on vasopressors: Levophed, vasopressin, titrate for map goal of 65 (phenyl epinephrine ordered) -BP monitoring per julian Respiratory: Acute on chronic hypoxic respiratory failure, recurrent pleural ef fusions, tobacco dependence, large right pleural effusion -Patient was recently discharged from hospital with supplemental oxygenation, unknown if patient uses currently -Intubated in the field by EMS -OETT 6.0 at 22 at the lip changed to 7.5 OETT 02/17 -Current vent settings: AC tidal volume 450, rate of 20, PEEP of 6, FiO2 100% -02/17 CXR reviewed -02/18 CXR interval worsening -Serial ABGs/CXR -VAP bundle -Wean mechanical ventilation as tolerated GI: ESLD secondary to EtOH abuse, nutrition, esophageal varices, recent GI bleed, transaminitis -GI consulted, appreciate recommendations -02/15 ammonia 231 -Hepatic panel (-) -Lactulose every 6 -Trend ammonia, LFTs -PPI : Metabolic acidosis -s/p sodium bicarb IVP -on D5HCO3 gtt -Strict intake and output -Lee catheter -Daily weights ID: Leukocytosis, ? Sepsis, TEN, h/o pemphigus foilaceous, Fungemia -ID consulted, appreciate recommendations -Presented with hypoxia, tachycardia, leukocytosis, CXR shows consolidation -Antibiotic therapy: Azithromycin and ceftriaxone 02/16, added ligai on 02/17 -02/15 blood cultures x2 culture in progress -02/16 blood cultures x2 culture in progress (1/2 bottles with yeast) -02/15 sputum culture in process -Patient was hypothermic and required Hallie hugger now is normothermic -UA pending -UDS pending Heme: Supratherapeutic INR, coagulopathy 2/2 ESLD -Avoid chemical anticoagulation in setting of supratherapeutic INR -SCDs to bilateral lower extremity while in bed -SCDs for hemoglobin less than 7 -Trend CBC Endo: Hypoglycemia -NTR consult -Accu-Cheks every 4 -D5 bicarb gtt infusing -Nutrition consult -Avoid hypoglycemia -Hypoglycemia protocol 02/18: BL pupils remain nonresponsive to light. Awaiting NM brain scan and CT brain completion. Patient still requiring pressor support with levophed and vaso. AMio d/c this AM. The high probability of a clinically significant, sudden or life threatening deterioration of the [multi] system(s) required my full and direct attention, intervention and personal management. The aggregate critical care time was [60] minutes. This time is in addition to time spent performing reported procedures but includes the following: [x] Data Review and interpretation [x] Patient assessment and monitoring of vital signs [x] Documentation [x] Medication orders and management Disposition Plan: ICU Total Time Spent with Patient (Minutes): 60 Total Time Spent with Patient (Minutes): 60 History Interval history: REMAINS INTUBATED AND SEDATED. Hospitalist Physical - Physical exam Narrative exam: General: Other (Unresponsive, on the vent), intubated and sedated. HEENT: Positive: Other (Pupils fixed) Neck: Positive: neck supple, right IJ CVC Cardiac: Positive: Reg Rate and Rhythm Lungs: Positive: Decreased Breath Sounds Neuro: Positive: Other (Unresponsive, on the vent) Abdomen: Positive: Distended Skin: Positive: Clear Extremities: Absent: edema, right groin A-line in place. - Constitutional Vitals: Temp Pulse Resp BP Pulse Ox 97.5 F L 92 H 21 126/66 98 02/17/21 20:00 02/18/21 15:30 02/18/21 15:30 02/18/21 15:30 02/18/21 15:30 General appearance: Present: other (Intubated) HEART Score - HEART Score Troponin: Troponin T < 0.010 ng/mL (0.00-0.029) 02/16/21 03:10 Results - Labs CBC & Chem 7: 02/18/21 07:15 02/18/21 07:15 Labs: Laboratory Last Values WBC 32.8 K/mm3 (4.5-11.0) H 02/18/21 07:15 RBC 3.33 M/mm3 (3.65-5.03) L 02/18/21 07:15 Hgb 12.0 gm/dl (10.1-14.3) 02/18/21 07:15 Hct 37.9 % (30.3-42.9) 02/18/21 07:15 MCV 114 fl (79-97) H 02/18/21 07:15 MCH 36 pg (28-32) H 02/18/21 07:15 MCHC 32 % (30-34) 02/18/21 07:15 RDW 23.0 % (13.2-15.2) H 02/18/21 07:15 Plt Count 135 K/mm3 (140-440) L 02/18/21 07:15 Add Manual Diff Complete 02/17/21 04:30 Total Counted 100 02/17/21 04:30 Seg Neutrophils % Blender 02/17/21 04:30 Seg Neuts % (Manual) 88.0 % (40.0-70.0) H 02/17/21 04:30 Band Neutrophils % 6.0 % 02/17/21 04:30 Lymphocytes % (Manual) 1.0 % (13.4-35.0) L 02/17/21 04:30 Monocytes % (Manual) 2.0 % (0.0-7.3) 02/17/21 04:30 Metamyelocytes % 3.0 % 02/17/21 04:30 Nucleated RBC % Not Reportable 02/17/21 04:30 Seg Neutrophils # Man 30.9 K/mm3 (1.8-7.7) H 02/17/21 04:30 Band Neutrophils # 2.1 K/mm3 02/17/21 04:30 Lymphocytes # (Manual) 0.4 K/mm3 (1.2-5.4) L 02/17/21 04:30 Abs React Lymphs (Man) 0.0 K/mm3 02/17/21 04:30 Monocytes # (Manual) 0.7 K/mm3 (0.0-0.8) 02/17/21 04:30 Eosinophils # (Manual) 0.0 K/mm3 (0.0-0.4) 02/17/21 04:30 Basophils # (Manual) 0.0 K/mm3 (0.0-0.1) 02/17/21 04:30 Metamyelocytes # 1.1 K/mm3 02/17/21 04:30 Myelocytes # 0.0 K/mm3 02/17/21 04:30 Promyelocytes # 0.0 K/mm3 02/17/21 04:30 Blast Cells # 0.0 K/mm3 02/17/21 04:30 WBC Morphology Not Reportable 02/17/21 04:30 Hypersegmented Neuts Not Reportable 02/17/21 04:30 Hyposegmented Neuts Not Reportable 02/17/21 04:30 Hypogranular Neuts Not Reportable 02/17/21 04:30 Smudge Cells Not Reportable 02/17/21 04:30 Toxic Granulation Not Reportable 02/17/21 04:30 Toxic Vacuolation Not Reportable 02/17/21 04:30 Dohle Bodies Not Reportable 02/17/21 04:30 Pelger-Huet Anomaly Not Reportable 02/17/21 04:30 Talita Rods Not Reportable 02/17/21 04:30 Platelet Estimate Consistent w auto 02/17/21 04:30 Clumped Platelets Not Reportable 02/17/21 04:30 Plt Clumps, EDTA Not Reportable 02/17/21 04:30 Large Platelets Not Reportable 02/17/21 04:30 Giant Platelets Not Reportable 02/17/21 04:30 Platelet Satelliting Not Reportable 02/17/21 04:30 Plt Morphology Comment Not Reportable 02/17/21 04:30 RBC Morphology Not Reportable 02/17/21 04:30 Dimorphic RBCs Not Reportable 02/17/21 04:30 Polychromasia Few 02/17/21 04:30 Hypochromasia Few 02/17/21 04:30 Poikilocytosis Not Reportable 02/17/21 04:30 Anisocytosis Not Reportable 02/17/21 04:30 Microcytosis Not Reportable 02/17/21 04:30 Macrocytosis Not Reportable 02/17/21 04:30 Spherocytes Not Reportable 02/17/21 04:30 Pappenheimer Bodies Not Reportable 02/17/21 04:30 Sickle Cells Not Reportable 02/17/21 04:30 Target Cells Not Reportable 02/17/21 04:30 Tear Drop Cells Not Reportable 02/17/21 04:30 Ovalocytes Not Reportable 02/17/21 04:30 Helmet Cells Not Reportable 02/17/21 04:30 [place] Bodies Not Reportable 02/17/21 04:30 [place] Rings Not Reportable 02/17/21 04:30 Tam Cells Not Reportable 02/17/21 04:30 Bite Cells Not Reportable 02/17/21 04:30 Crenated Cell Not Reportable 02/17/21 04:30 Elliptocytes Not Reportable 02/17/21 04:30 Acanthocytes (Spur) Not Reportable 02/17/21 04:30 Rouleaux Not Reportable 02/17/21 04:30 Hemoglobin C Crystals Not Reportable 02/17/21 04:30 Schistocytes Not Reportable 02/17/21 04:30 Malaria parasites Not Reportable 02/17/21 04:30 Rangel Bodies Not Reportable 02/17/21 04:30 Hem Pathologist Commnt No 02/17/21 04:30 PT 33.9 Sec. (12.2-14.9) H 02/17/21 04:30 INR 3.34 (0.87-1.13) H 02/17/21 04:30 APTT 54.1 Sec. (24.2-36.6) H 02/15/21 21:58 ABG pH 7.278 (7.320-7.450) L 02/18/21 04:18 POC ABG pCO2 45.7 mmHg (32.0-48.0) 02/18/21 04:18 POC ABG pO2 73.0 mmHg (83-108) L 02/18/21 04:18 POC ABG HCO3 20.9 02/18/21 04:18 ABG O2 Saturation 93.0 (0-100) 02/18/21 04:18 POC ABG Base Excess -5.7 02/18/21 04:18 ABG Hemoglobin 11.2 (12.0-17.5) L 02/18/21 04:18 ABG Oxyhemoglobin 92.4 (94-98) L 02/18/21 04:18 ABG Methemoglobin 0.3 (0.0-1.5) 02/18/21 04:18 ABG Sodium 143.9 mmol/L (136.0-145.0) 02/18/21 04:18 ABG Potassium 3.1 mmol/L (3.40-4.50) L 02/18/21 04:18 ABG Chloride 112.0 mmol/L (98-107) H 02/18/21 04:18 ABG Glucose 177 mg/dL (65-95) H 02/18/21 04:18 Carboxyhemoglobin 0.3 (0.5-1.5) L 02/18/21 04:18 FiO2 % 100.0 02/18/21 04:18 Sodium 151 mmol/L (137-145) H 02/18/21 07:15 Potassium 3.9 mmol/L (3.6-5.0) 02/18/21 07:15 Chloride 109.5 mmol/L (98-107) H 02/18/21 07:15 Carbon Dioxide 27 mmol/L (22-30) 02/18/21 07:15 Anion Gap 18 mmol/L 02/18/21 07:15 BUN 12 mg/dL (7-17) 02/18/21 07:15 Creatinine 1.0 mg/dL (0.6-1.2) 02/18/21 07:15 Estimated GFR 58 ml/min 02/18/21 07:15 BUN/Creatinine Ratio 12 % 02/18/21 07:15 Glucose 152 mg/dL (65-100) H 02/18/21 07:15 POC Glucose 172 mg/dL (70-105) H 02/18/21 11:27 Lactic Acid 11.50 mmol/L (0.7-2.0) H* 02/16/21 07:43 Calcium 5.4 mg/dL (8.4-10.2) L* D 02/18/21 07:15 Total Bilirubin 4.30 mg/dL (0.1-1.2) H 02/18/21 07:15 AST 277 units/L (5-40) H 02/18/21 07:15 ALT 5 units/L (7-56) L 02/18/21 07:15 Alkaline Phosphatase 230 units/L (35-129) H 02/18/21 07:15 Ammonia 100.0 umol/L (25-60) H 02/17/21 04:30 Troponin T < 0.010 ng/mL (0.00-0.029) 02/16/21 03:10 Total Protein 3.8 g/dL (6.3-8.2) L 02/18/21 07:15 Albumin 0.9 g/dL (3.9-5) L 02/18/21 07:15 Albumin/Globulin Ratio 0.3 % 02/18/21 07:15 TSH 11.520 mlU/mL (0.270-4.200) H 02/15/21 21:58 Arterial Blood Glucose 177 mg/dL (65-95) H 02/18/21 04:18 Arterial Blood Ionized Calcium 3.1 mg/dL (4.6-5.3) L 02/18/21 04:18 Urine Color Laura (Yellow) 02/16/21 Unknown Urine Turbidity Cloudy (Clear) 02/16/21 Unknown Urine pH 5.0 (5.0-7.0) 02/16/21 Unknown Ur Specific [place] 1.049 (1.003-1.030) H 02/16/21 Unknown Urine Protein 100 mg/dl mg/dL (Negative) 02/16/21 Unknown Urine Glucose (UA) Neg mg/dL (Negative) 02/16/21 Unknown Urine Ketones Neg mg/dL (Negative) 02/16/21 Unknown Urine Blood Lg (Negative) 02/16/21 Unknown Urine Nitrite Neg (Negative) 02/16/21 Unknown Urine Bilirubin Neg (Negative) 02/16/21 Unknown Urine Urobilinogen < 2.0 mg/dL (<2.0) 02/16/21 Unknown Ur Leukocyte Esterase Tr (Negative) 02/16/21 Unknown Urine WBC (Auto) 122.0 /HPF (0.0-6.0) H 02/16/21 Unknown Urine RBC (Auto) 164.0 /HPF (0.0-6.0) 02/16/21 Unknown U Epithel Cells (Auto) 2.0 /HPF (0-13.0) 02/16/21 Unknown Urine WBC Clumps 2+ /HPF 02/16/21 Unknown Urine Mucus Few /HPF 02/16/21 Unknown Urine Yeast (Budding) 2+ /HPF 02/16/21 Unknown Urine Opiates Screen Negative 02/16/21 Unknown Urine Methadone Screen Negative 02/16/21 Unknown Ur Barbiturates Screen Negative 02/16/21 Unknown Ur Phencyclidine Scrn Negative 02/16/21 Unknown Ur Amphetamines Screen Negative 02/16/21 Unknown U Benzodiazepines Scrn Negative 02/16/21 Unknown Urine Cocaine Screen Negative 02/16/21 Unknown U Marijuana (THC) Screen Negative 02/16/21 Unknown Drugs of Abuse Note Disclamer 02/16/21 Unknown Plasma/Serum Alcohol < 0.01 % (0-0.07) 02/15/21 21:58 Microbiology: Microbiology 02/16/21 00:54 Peripheral/Venous Blood Culture - Preliminary YEAST 02/16/21 00:19 Peripheral/Venous Blood Culture - Preliminary NO GROWTH AFTER 48 HOURS 02/15/21 21:58 Peripheral/Venous Blood Culture - Preliminary NO GROWTH AFTER 48 HOURS 02/15/21 21:58 Peripheral/Venous Blood Culture - Preliminary NO GROWTH AFTER 48 HOURS 02/16/21 Unknown Urine,Catheterized - Indwelling Catheter Urine Culture - Preliminary 02/15/21 21:47 Tracheal Aspirate Sputum Culture - Preliminary Lee/IV: Voiding Method Indwelling Catheter Active Medications - Current Medications Current Medications: Generic Name Dose Route Start Last Admin Trade Name Freq PRN Reason Stop Dose Admin Acetaminophen 650 mg 02/16/21 01:31 Acetaminophen 325 Mg Tab PO Q6H PRN Pain MILD(1-3)/Fever >100.5/FAULKNER Albuterol 2.5 mg 02/16/21 01:31 Albuterol 2.5 Mg/3 Ml Nebu IH Q3HRT PRN Shortness Of Breath Albuterol/Ipratropium 1 ampul 02/16/21 02:00 02/18/21 15:34 Ipratropium/Albuterol Sulfate 3 Ml Ampul.Neb IH 1 ampul Q6HRT FOREIGN Administration Aspirin 81 mg 02/16/21 10:00 02/18/21 10:22 Aspirin 81 Mg Tab Chew PO Not Given QDAY FOREIGN Atorvastatin Calcium 40 mg 02/16/21 22:00 02/17/21 21:22 Atorvastatin 40 Mg Tab PO 40 mg QHS FOREIGN Administration Dextrose 50 ml 02/16/21 17:01 Dextrose 50% In Water (25gm) 50 Ml Syringe IV Q30MIN PRN Hypoglycemia Protocol Famotidine 20 mg 02/15/21 22:00 02/18/21 09:53 Famotidine 20 Mg/2 Ml Inj IV 20 mg BID FOREIGN Administration Folic Acid 1 mg 02/16/21 10:00 02/18/21 10:22 Folic Acid 1 Mg Tab PO Not Given DAILY [facility] Hydrophilic Ointment 1 applic 02/15/21 21:47 Lip Therapy Vaseline TP Q2HR PRN Dry Lips Norepinephrine 4 mg in 250 mls @ 7.5 mls/hr 02/15/21 23:00 02/18/21 14:55 Levophed Drip 4 Mg/Ns 250 Ml IV 30 mcg/min TITR FOREIGN 112.5 mls/hr Administration Protocol 2 MCG/MIN Dopamine HCl/Dextrose 800 mg in 250 mls @ 2.381 mls/hr 02/15/21 23:02 02/16/21 00:00 Intropin Drip 800 Mg/D5w 250 Ml IV 02/20/21 08:01 Not Given TITR ONE Protocol 2 MCG/KG/MIN Ceftriaxone Sodium 2 gm in 100 mls @ 200 mls/hr 02/16/21 02:00 02/18/21 02:59 Rocephin/Ns 2 Gm/100 Ml IV 200 mls/hr Q24H FOREIGN Administration Protocol Azithromycin 500 mg in 250 mls @ 250 mls/hr 02/16/21 02:00 02/18/21 02:59 Zithromax/Ns IV 250 mls/hr Q24H FOREIGN Administration Protocol Sodium Chloride 500 mls @ 1 mls/hr 02/16/21 10:45 Nacl 0.9% 500 Ml IV DIRECT PRN ARTERIAL LINE FLUSH Vasopressin 20 unit/ Sodium 101 mls @ 9.09 mls/hr 02/16/21 11:00 02/18/21 09:53 Chloride IV 0.03 units/min TITR FOREIGN 9.09 mls/hr Administration Protocol 0.03 UNITS/MIN Phenylephrine HCl 100 mg/ 100 mls @ 3 mls/hr 02/16/21 13:00 02/18/21 14:26 Sodium Chloride IV 50 mcg/min TITR FOREIGN 3 mls/hr Administration Protocol 50 MCG/MIN Sodium Bicarbonate 150 meq/ 1,150 mls @ 150 mls/hr 02/17/21 13:00 02/18/21 14:26 Dextrose IV 150 mls/hr DIRECT FOREIGN Administration Propofol 1,000 mg in 100 mls @ 1.905 mls/hr 02/17/21 13:00 02/18/21 07:50 Diprivan 10 Mg/Ml IV 0 mcg/kg/min TITR FOREIGN 0 mls/hr Titration Protocol 5 MCG/KG/MIN Micafungin Sodium 100 mg/ 100 mls @ 100 mls/hr 02/17/21 16:00 02/17/21 16:31 Sodium Chloride IV 100 mls/hr Q24H FOREIGN Administration Protocol Lactulose 20 gm 02/16/21 12:00 02/18/21 07:14 Lactulose 20 Gm/30 Ml Oral Liqd PO 20 gm Q6HR FOREIGN Administration Lorazepam 2 mg 02/16/21 20:37 02/16/21 20:43 Lorazepam 2 Mg/Ml Vial IV 2 mg Q1H PRN Administration Seizures Miscellaneous Medication 1 applicatio 02/16/21 10:00 Betamethasone Dipropionate [Betamethasone Dipropionate 0.05% Cream] TP BID FOREIGN Multi-Ingred Cream/Lotion/Oil/Oint 1 applic 02/15/21 21:47 Mineral Oil/Petrolatum, White Ophth Oint 3.5 Gm OU Q4HR PRN Dry Eye(s) Ondansetron HCl 4 mg 02/16/21 01:31 Ondansetron 4 Mg/2 Ml Inj IV Q8H PRN Nausea And Vomiting Senna/Docusate Sodium 1 tab 02/15/21 22:00 02/18/21 10:23 Sennosides/Docusate Sodium 8.6/50 Mg Tab FEEDTUBE Not Given BID FOREIGN Sodium Chloride 10 ml 02/16/21 10:00 02/18/21 09:53 Sodium Chloride 0.9% 10 Ml Flush Syringe IV 10 ml BID FOREIGN Administration Sodium Chloride 10 ml 02/16/21 01:31 Sodium Chloride 0.9% 10 Ml Flush Syringe IV PRN PRN LINE FLUSH Thiamine HCl 100 mg 02/16/21 10:00 02/18/21 10:23 Thiamine 100 Mg Tab PO Not Given QDAY FOREIGN Nutrition/Malnutrition Assess - Dietary Evaluation Nutrition/Malnutrition Findings: Nutrition Notes Start: 02/16/21 10:50 Freq: Status: Active Protocol: Document 02/18/21 12:30 (Rec: 02/18/21 12:35 [email or web address]) Nutrition Notes Initial or Follow up Brief Note Current Diagnosis Sepsis,Respiratory Failure, Stroke Other Pertinent Diagnosis Cardiac Arrest,ESLD, depression,Substance abuse, Anoxic Encephalopathy, PNA Current Diet NPO Subjective/Other Information Per MD, due to pressures, unable to start TF today. RN scree for MST and skin risk. Pt has Duane Laureano Syndrome . Nutrition Intervention Change Diet Order: Recommend Initiate Nutrition support Nutrition Support: Vital AF at 50 ml/hr with a free water flush of 70 ml q4h. Kcal 1,440 Protein (gm) 90 Fluid (mL) 973 Follow-Up By: 02/20/21 Additional Comments F/u: TF consult or extubation
[2021-02-19] MEDS: LACTULOSE 20 GM/30 ML ORAL LIQD PO SCH ×4 (00:22→18:41)
[2021-02-19] MEDS: IPRATROPIUM/ALBUTEROL SULFATE 3 ML AMPUL.NEB IH SCH ×4 (02:09→19:10)
[2021-02-19] MEDS: AZITHROMYCIN/NS 500 MG/250 ML 500 MG/250 ML BAG IV SCH (02:37)
[2021-02-19] MEDS: cefTRIAXone/NS 2 GM/100 ML 2 GM/100 ML BAG IV SCH (02:37)
--- NOTE | 2021-02-19 04:50 | XRay Report ---
CHEST 1 VIEW 02/19/2021 4:19 AM INDICATION / CLINICAL INFORMATION: follow up respiratory failure. COMPARISON: 02/18/21 FINDINGS: SUPPORT DEVICES: Unchanged. HEART / MEDIASTINUM: Stable. LUNGS / PLEURA: Bilateral pleural-parenchymal densities are unchanged. No pneumothorax. ADDITIONAL FINDINGS: No significant additional findings. IMPRESSION: 1. No significant change. Signer Name: Salome Solorio MD Signed: 02/19/2021 4:46 AM Workstation Name: [id number][id number]
[2021-02-19] MEDS: NORepinephrine/NS 4 MG-250 ML 4 MG/250 ML BAG IV SCH ×6 (05:37→20:08)
[2021-02-19] MEDS: SODIUM BICARBONATE 150 MEQ in DEXTROSE 5% IN WATER 1,000 ML IV SCH (06:23)
[2021-02-19] MEDS: EPINEPHrine 1 MG/1 ML 8 MG in SODIUM CHLORIDE 0.9% 250ML 242 ML IV SCH (08:44)
[2021-02-19] MEDS: ASPIRIN 81 MG TAB CHEW PO SCH (09:17)
[2021-02-19] MEDS: FOLIC ACID 1 MG TAB PO SCH (09:18)
[2021-02-19] MEDS: FAMOTIDINE 20 MG/2 ML INJ IV SCH ×2 (09:18→22:15)
[2021-02-19] MEDS: THIAMINE 100 MG TAB PO SCH (09:18)
[2021-02-19] MEDS: SENNOSIDES/DOCUSATE SODIUM 8.6/50 MG TAB FEEDTUBE SCH ×3 (09:18→22:15)
--- NOTE | 2021-02-19 09:30 | Progress Note ---
Assessment and Plan Encephalopathy Out of the hospital PEA arrest Large right pleural effusion End Stage Liver Disease Chronic alcohol abuse Echocardiogram done shows normal left ventricular systolic function with ejection fraction 60-65%. Conservative cardiac management. Subjective Date of service: 02/19/21 Interval history: Patient remains unresponsive on the vent and on multiple pressors for support. Objective Vital Signs Temp Pulse Pulse Pulse Resp Resp Resp 02/19/21 09:03 02/19/21 09:00 106 H 26 H 02/19/21 08:50 106 H 26 H 02/19/21 08:40 98.1 F 106 H 25 H 02/19/21 08:30 108 H 22 02/19/21 08:20 109 H 28 H 02/19/21 08:10 108 H 25 H 02/19/21 08:00 108 H 24 02/19/21 07:50 99 H 21 02/19/21 07:40 108 H 27 H 02/19/21 07:30 107 H 26 H 02/19/21 07:20 106 H 25 H 02/19/21 07:11 106 H 106 H 24 02/19/21 07:10 106 H 52 H 02/19/21 07:00 98.3 F 105 H 29 H 02/19/21 06:50 106 H 44 H 02/19/21 06:40 105 H 44 H 02/19/21 06:30 105 H 36 H 02/19/21 06:20 105 H 35 H 02/19/21 06:10 105 H 35 H 02/19/21 06:00 103 H 25 H 02/19/21 05:50 103 H 27 H 02/19/21 05:40 106 H 22 02/19/21 05:30 105 H 25 H 02/19/21 05:20 106 H 24 02/19/21 05:10 104 H 45 H 02/19/21 05:00 02/19/21 04:50 104 H 26 H 02/19/21 04:40 114 H 21 02/19/21 04:30 103 H 22 02/19/21 04:20 104 H 23 02/19/21 04:10 104 H 24 02/19/21 04:00 98.3 F 105 H 26 H 02/19/21 03:50 109 H 27 H 02/19/21 03:40 100 H 27 H 02/19/21 03:30 99 H 28 H 02/19/21 03:21 102 H 02/19/21 03:20 103 H 27 H 02/19/21 03:10 105 H 15 02/19/21 03:00 105 H 24 02/19/21 02:50 103 H 33 H 02/19/21 02:40 103 H 26 H 02/19/21 02:30 101 H 26 H 02/19/21 02:20 107 H 24 02/19/21 02:10 102 H 102 H 20 24 02/19/21 02:00 102 H 27 H 02/19/21 01:50 101 H 25 H 02/19/21 01:40 98 H 24 02/19/21 01:30 100 H 24 02/19/21 01:20 98 H 26 H 02/19/21 01:10 96 H 23 02/19/21 01:00 100 H 23 02/19/21 00:50 96 H 25 H 02/19/21 00:43 02/19/21 00:40 102 H 22 02/19/21 00:30 98 H 21 02/19/21 00:20 97 H 20 02/19/21 00:10 97 H 20 02/19/21 00:01 98 H 02/19/21 00:00 97.9 F 103 H 20 02/18/21 23:56 100 H 02/18/21 23:50 98 H 21 02/18/21 23:40 100 H 23 02/18/21 23:30 99 H 22 02/18/21 23:28 99 H 22 02/18/21 23:20 97 H 22 02/18/21 23:10 97 H 21 02/18/21 23:00 98 H 21 02/18/21 22:50 97 H 24 02/18/21 22:40 96 H 25 H 02/18/21 22:30 95 H 24 02/18/21 22:20 92 H 26 H 02/18/21 22:10 96 H 23 02/18/21 22:00 106 H 24 02/18/21 21:50 97 H 22 02/18/21 21:40 97 H 20 02/18/21 21:30 97 H 19 02/18/21 21:20 98 H 22 02/18/21 21:10 97 H 21 02/18/21 21:00 97 H 21 02/18/21 20:50 96 H 24 02/18/21 20:40 95 H 22 02/18/21 20:30 97 H 22 02/18/21 20:20 100 H 21 02/18/21 20:10 91 H 20 02/18/21 20:08 96 H 02/18/21 20:07 92 H 94 H 22 22 02/18/21 20:00 95.3 F L 91 H 22 02/18/21 19:56 91 H 02/18/21 19:50 92 H 21 02/18/21 19:40 92 H 21 02/18/21 19:30 88 20 02/18/21 19:20 89 20 02/18/21 19:10 90 21 02/18/21 19:00 90 20 02/18/21 18:50 94 H 20 02/18/21 18:40 89 20 02/18/21 18:30 88 20 02/18/21 18:20 98 H 20 02/18/21 18:10 94 H 21 02/18/21 18:00 89 22 02/18/21 17:50 89 20 02/18/21 17:40 89 20 02/18/21 17:30 89 20 02/18/21 17:20 94 H 20 02/18/21 17:10 140 H 20 02/18/21 17:00 101 H 22 02/18/21 16:50 90 26 H 02/18/21 16:40 99 H 21 02/18/21 16:30 170 H 02/18/21 16:20 98 H 22 02/18/21 16:10 94 H 21 02/18/21 16:00 62 22 02/18/21 15:50 93 H 22 02/18/21 15:40 92 H 22 02/18/21 15:30 92 H 21 02/18/21 15:21 93 H 02/18/21 15:20 92 H 25 H 02/18/21 15:10 92 H 25 H 02/18/21 15:00 91 H 26 H 02/18/21 14:50 92 H 21 02/18/21 14:40 92 H 27 H 02/18/21 14:30 92 H 25 H 02/18/21 14:20 93 H 25 H 02/18/21 14:14 96 H 22 02/18/21 14:00 59 L 92 H 24 08/02/21 13:50 87 02/18/21 13:40 86 02/18/21 13:30 86 02/18/21 13:20 85 02/18/21 13:10 84 02/18/21 13:00 83 02/18/21 12:50 82 02/18/21 12:40 81 02/18/21 12:30 80 02/18/21 12:20 81 02/18/21 12:10 77 02/18/21 12:00 77 02/18/21 11:50 76 02/18/21 11:42 85 02/18/21 11:40 75 02/18/21 11:30 75 02/18/21 11:20 75 02/18/21 11:10 76 02/18/21 11:00 74 02/18/21 10:50 73 02/18/21 10:40 73 02/18/21 10:30 74 02/18/21 10:20 67 02/18/21 10:10 67 02/18/21 10:00 76 02/18/21 09:50 77 02/18/21 09:40 77 Resp BP Pulse Ox 02/19/21 09:03 27 H 02/19/21 09:00 100 02/19/21 08:50 99 02/19/21 08:40 99 02/19/21 08:30 97 02/19/21 08:20 99 02/19/21 08:10 110/74 100 02/19/21 08:00 97 02/19/21 07:50 72 L 02/19/21 07:40 96 02/19/21 07:30 98 02/19/21 07:20 94 02/19/21 07:11 100 02/19/21 07:10 99 02/19/21 07:00 144/99 100 02/19/21 06:50 144/99 100 02/19/21 06:40 144/99 97 02/19/21 06:30 144/99 93 02/19/21 06:20 144/99 99 02/19/21 06:10 144/99 100 02/19/21 06:00 144/99 96 02/19/21 05:50 144/99 99 02/19/21 05:40 144/99 99 02/19/21 05:30 144/99 87 08/03/21 05:20 144/99 02/19/21 05:10 144/99 98 02/19/21 05:00 144/99 66 L 02/19/21 04:50 144/99 97 02/19/21 04:40 144/99 100 02/19/21 04:30 144/99 96 02/19/21 04:20 144/99 95 02/19/21 04:10 144/99 100 02/19/21 04:00 144/99 100 02/19/21 03:50 144/99 99 02/19/21 03:40 144/99 100 02/19/21 03:30 144/99 100 02/19/21 03:21 121/63 100 02/19/21 03:20 144/99 100 02/19/21 03:10 144/99 96 02/19/21 03:00 144/99 100 02/19/21 02:50 144/99 99 02/19/21 02:40 144/99 99 02/19/21 02:30 144/99 99 02/19/21 02:20 144/99 100 02/19/21 02:10 144/99 99 02/19/21 02:00 144/99 100 02/19/21 01:50 144/99 100 02/19/21 01:40 144/99 100 02/19/21 01:30 144/99 97 02/19/21 01:20 144/99 99 02/19/21 01:10 144/99 100 02/19/21 01:00 144/99 90 02/19/21 00:50 144/99 98 02/19/21 00:43 98 02/19/21 00:40 144/99 96 02/19/21 00:30 144/99 99 02/19/21 00:20 144/99 100 02/19/21 00:10 144/99 100 02/19/21 00:01 02/19/21 00:00 144/99 100 02/18/21 23:56 121/54 100 02/18/21 23:50 144/99 100 02/18/21 23:40 144/99 100 02/18/21 23:30 144/99 100 02/18/21 23:28 144/99 100 02/18/21 23:20 144/99 100 02/18/21 23:10 144/99 100 02/18/21 23:00 144/99 100 02/18/21 22:50 144/99 99 02/18/21 22:40 144/99 99 02/18/21 22:30 144/99 98 02/18/21 22:20 144/99 94 02/18/21 22:10 144/99 95 02/18/21 22:00 28 H 144/99 95 02/18/21 21:50 144/99 99 02/18/21 21:40 144/99 97 02/18/21 21:30 144/99 98 02/18/21 21:20 144/99 97 02/18/21 21:10 144/99 95 02/18/21 21:00 144/99 97 02/18/21 20:50 144/99 97 02/18/21 20:40 144/99 98 02/18/21 20:30 144/99 98 02/18/21 20:20 144/99 97 02/18/21 20:10 144/99 97 02/18/21 20:08 115/57 97 02/18/21 20:07 02/18/21 20:00 144/99 97 02/18/21 19:56 02/18/21 19:50 144/99 96 02/18/21 19:40 144/99 97 02/18/21 19:30 144/99 96 02/18/21 19:20 144/99 96 02/18/21 19:10 144/99 95 02/18/21 19:00 144/99 95 02/18/21 18:50 144/99 97 02/18/21 18:40 144/99 95 02/18/21 18:30 144/99 95 02/18/21 18:20 144/99 97 02/18/21 18:10 144/99 96 02/18/21 18:00 144/99 97 02/18/21 17:50 144/99 96 02/18/21 17:40 144/99 96 02/18/21 17:30 144/99 98 02/18/21 17:20 144/99 98 02/18/21 17:10 144/99 96 02/18/21 17:00 144/99 95 02/18/21 16:50 144/99 02/18/21 16:40 144/99 02/18/21 16:30 144/99 02/18/21 16:20 144/99 74 L 02/18/21 16:10 130/97 02/18/21 16:00 207/165 97 02/18/21 15:50 129/108 92 02/18/21 15:40 108/72 93 02/18/21 15:30 126/66 98 02/18/21 15:21 164/120 96 02/18/21 15:20 164/120 89 02/18/21 15:10 76/22 02/18/21 15:00 89/70 02/18/21 14:50 72/46 02/18/21 14:40 75/45 02/18/21 14:30 73/42 02/18/21 14:20 02/18/21 14:14 02/18/21 14:00 95 02/18/21 13:50 98 02/18/21 13:40 98 02/18/21 13:30 98 02/18/21 13:20 99 02/18/21 13:10 98 02/18/21 13:00 98 02/18/21 12:50 96 02/18/21 12:40 97 02/18/21 12:30 98 02/18/21 12:20 97 02/18/21 12:10 97 02/18/21 12:00 97 02/18/21 11:50 98 02/18/21 11:42 95/52 97 02/18/21 11:40 98 02/18/21 11:30 97 02/18/21 11:20 96 02/18/21 11:10 95 02/18/21 11:00 95 02/18/21 10:50 95 02/18/21 10:40 94 02/18/21 10:30 95 02/18/21 10:20 97 02/18/21 10:10 96 02/18/21 10:00 28 H 96 02/18/21 09:50 96 02/18/21 09:40 96 - Physical Examination General: Other (Unresponsive, on the vent) Neck: Positive: neck supple Cardiac: Positive: Tachycardia Neuro: Positive: Other (Unresponsive, on the vent)
[2021-02-19 09:41] LABS: Albumin 1.2 g/dL (3.9-5)
[2021-02-19 09:48] LABS: Calcium 4.8 mg/dL (8.4-10.2)
--- NOTE | 2021-02-19 10:23 | Progress Note ---
Assessment and Plan 50 y/o female with multiple medical problems with out of hospital cardiac arrest, now intubated, not on sedation on multiple pressors with likely anoxic brain injury. 02/19/21: Patient not able to go down to CT or Nuc med secondary to desats on the portable vent per RN from yesterday. Now on 3 pressors. Unchanged mental state. Still concern for anoxic brain injury. Continues to have low calcium so will replace today. Also place on D5W as she has a large amount of insensible loses with hypernatremia and hyperchloremia. ID ordered repeat blood cultures that were done this am and TTE showed no vegetations. Overall prognosis is guarded to poor. Will continue supportive measures. Order EEG now. 02/18/21: CT head today, hopefully. Echo done yesterday showing EF of 65%. Previous echo in the steward system, December of this year shows an EF of 25%. Family does not know much about history or care to help confirm one way or the other. Mental status is still the same, unresponsive on no sedation. Once imaging complete can speak with family about goals of care. Agree with stopping amio as this was likely artifact from myoclonic jerks. Overall prognosis is very very poor. IMS started on antifungal given one culture with yeast. Not speciated yet 02/17/21: CT head without contrast today. Will increase rate on D5W to 150. Stopped all normal saline drips given hyperchloremia. Repeat ABG in 2 hours. Continue vasopressors to keep map greater than 65. Echo was being done at bedside and patient's heart rate is not as fast as monitor. Maybe picking up some artifact from myclonic jerking. White count continues to increase, continue abx therapy for now, could be reactive, however patient did have fever last night. Will have to give her some sedation for CT to get quality images so will start diprovan drip. Very very guarded prognosis. Follow up serologies. 1. Repeat head CT tomorrow 2. Agree with EEG 3. No sedatives, jerking is not seizures, but myoclonic jerks, likely from anoxia 4. COntinue vasopressors and wean as tolerated 5. Agree with abx therapy 6. Long discussion at bedside with one son and one daughter. Daughter attempted to provide timeline and patient was likely down for 20+ minutes before ROSC was achieved. Son is very upset and angry, feels that hospital discharged his mother to fast. States that they hate this hospital and they did not want their mother here. She always goes to [facility] which is an accurate statement. A lot of history obtained from [facility]. Skin condition is chronic and not new. Biopsy proven Pemphigus Foliaceus and patient was suppose to follow up with [facility] next month. She also has systolic heart failure with an EF of 25-30%. She does not have a device. She has Hep C and severe liver disease from this. She also has chronic pain as well. Attempted to explain in detail the severity of illness and multisystem organ failure that their family member was experiencing even prior to admission. Will have follow discussions with them once we have repeat head CT and EEG. CCT 31 minutes. Subjective Date of service: 02/19/21 Interval history: Now on 3 pressors including epi. pH is better and bicarb is better. Still unresponsive. Diprovan is now off. Some jerking has returned but not as severe. Remainder is negative. Objective Vital Signs - 12hr 02/18/21 02/18/21 02/18/21 22:20 22:30 22:40 Temperature Pulse Rate 92 H 95 H 96 H Pulse Rate [ Anterior Bilateral Bases ] Respiratory 26 H 24 25 H Rate Respiratory Rate [Anterior Bilateral Bases ] Respiratory Rate [ Generalized] Blood Pressure 144/99 144/99 144/99 O2 Sat by Pulse 94 98 99 Oximetry 02/18/21 02/18/21 02/18/21 22:50 23:00 23:10 Temperature Pulse Rate 97 H 98 H 97 H Pulse Rate [ Anterior Bilateral Bases ] Respiratory 24 21 21 Rate Respiratory Rate [Anterior Bilateral Bases ] Respiratory Rate [ Generalized] Blood Pressure 144/99 144/99 144/99 O2 Sat by Pulse 99 100 100 Oximetry 02/18/21 02/18/21 02/18/21 23:20 23:28 23:30 Temperature Pulse Rate 97 H 99 H 99 H Pulse Rate [ Anterior Bilateral Bases ] Respiratory 22 22 22 Rate Respiratory Rate [Anterior Bilateral Bases ] Respiratory Rate [ Generalized] Blood Pressure 144/99 144/99 144/99 O2 Sat by Pulse 100 100 100 Oximetry 02/18/21 02/18/21 02/18/21 23:40 23:50 23:56 Temperature Pulse Rate 100 H 98 H 100 H Pulse Rate [ Anterior Bilateral Bases ] Respiratory 23 21 Rate Respiratory Rate [Anterior Bilateral Bases ] Respiratory Rate [ Generalized] Blood Pressure 144/99 144/99 121/54 O2 Sat by Pulse 100 100 100 Oximetry 02/19/21 02/19/21 02/19/21 00:00 00:01 00:10 Temperature 97.9 F Pulse Rate 103 H 98 H 97 H Pulse Rate [ Anterior Bilateral Bases ] Respiratory 20 20 Rate Respiratory Rate [Anterior Bilateral Bases ] Respiratory Rate [ Generalized] Blood Pressure 144/99 144/99 O2 Sat by Pulse 100 100 Oximetry 02/19/21 02/19/21 02/19/21 00:20 00:30 00:40 Temperature Pulse Rate 97 H 98 H 102 H Pulse Rate [ Anterior Bilateral Bases ] Respiratory 20 21 22 Rate Respiratory Rate [Anterior Bilateral Bases ] Respiratory Rate [ Generalized] Blood Pressure 144/99 144/99 144/99 O2 Sat by Pulse 100 99 96 Oximetry 02/19/21 02/19/21 02/19/21 00:43 00:50 01:00 Temperature Pulse Rate 96 H 100 H Pulse Rate [ Anterior Bilateral Bases ] Respiratory 25 H 23 Rate Respiratory Rate [Anterior Bilateral Bases ] Respiratory Rate [ Generalized] Blood Pressure 144/99 144/99 O2 Sat by Pulse 98 98 90 Oximetry 02/19/21 02/19/21 02/19/21 01:10 01:20 01:30 Temperature Pulse Rate 96 H 98 H 100 H Pulse Rate [ Anterior Bilateral Bases ] Respiratory 23 26 H 24 Rate Respiratory Rate [Anterior Bilateral Bases ] Respiratory Rate [ Generalized] Blood Pressure 144/99 144/99 144/99 O2 Sat by Pulse 100 99 97 Oximetry 02/19/21 02/19/21 02/19/21 01:40 01:50 02:00 Temperature Pulse Rate 98 H 101 H 102 H Pulse Rate [ Anterior Bilateral Bases ] Respiratory 24 25 H 27 H Rate Respiratory Rate [Anterior Bilateral Bases ] Respiratory Rate [ Generalized] Blood Pressure 144/99 144/99 144/99 O2 Sat by Pulse 100 100 100 Oximetry 02/19/21 02/19/21 02/19/21 02:10 02:20 02:30 Temperature Pulse Rate 102 H 107 H 101 H Pulse Rate [ 102 H Anterior Bilateral Bases ] Respiratory 20 24 26 H Rate Respiratory 24 Rate [Anterior Bilateral Bases ] Respiratory Rate [ Generalized] Blood Pressure 144/99 144/99 144/99 O2 Sat by Pulse 99 100 99 Oximetry 02/19/21 02/19/21 02/19/21 02:40 02:50 03:00 Temperature Pulse Rate 103 H 103 H 105 H Pulse Rate [ Anterior Bilateral Bases ] Respiratory 26 H 33 H 24 Rate Respiratory Rate [Anterior Bilateral Bases ] Respiratory Rate [ Generalized] Blood Pressure 144/99 144/99 144/99 O2 Sat by Pulse 99 99 100 Oximetry 02/19/21 02/19/21 02/19/21 03:10 03:20 03:21 Temperature Pulse Rate 105 H 103 H 102 H Pulse Rate [ Anterior Bilateral Bases ] Respiratory 15 27 H Rate Respiratory Rate [Anterior Bilateral Bases ] Respiratory Rate [ Generalized] Blood Pressure 144/99 144/99 121/63 O2 Sat by Pulse 96 100 100 Oximetry 02/19/21 02/19/21 02/19/21 03:30 03:40 03:50 Temperature Pulse Rate 99 H 100 H 109 H Pulse Rate [ Anterior Bilateral Bases ] Respiratory 28 H 27 H 27 H Rate Respiratory Rate [Anterior Bilateral Bases ] Respiratory Rate [ Generalized] Blood Pressure 144/99 144/99 144/99 O2 Sat by Pulse 100 100 99 Oximetry 02/19/21 02/19/21 02/19/21 04:00 04:10 04:20 Temperature 98.3 F Pulse Rate 105 H 104 H 104 H Pulse Rate [ Anterior Bilateral Bases ] Respiratory 26 H 24 23 Rate Respiratory Rate [Anterior Bilateral Bases ] Respiratory Rate [ Generalized] Blood Pressure 144/99 144/99 144/99 O2 Sat by Pulse 100 100 95 Oximetry 02/19/21 02/19/21 02/19/21 04:30 04:40 04:50 Temperature Pulse Rate 103 H 114 H 104 H Pulse Rate [ Anterior Bilateral Bases ] Respiratory 22 21 26 H Rate Respiratory Rate [Anterior Bilateral Bases ] Respiratory Rate [ Generalized] Blood Pressure 144/99 144/99 144/99 O2 Sat by Pulse 96 100 97 Oximetry 02/19/21 02/19/21 02/19/21 05:00 05:10 05:20 Temperature Pulse Rate 104 H 106 H Pulse Rate [ Anterior Bilateral Bases ] Respiratory 45 H 24 Rate Respiratory Rate [Anterior Bilateral Bases ] Respiratory Rate [ Generalized] Blood Pressure 144/99 144/99 144/99 O2 Sat by Pulse 66 L 98 Oximetry 02/19/21 02/19/21 02/19/21 05:30 05:40 05:50 Temperature Pulse Rate 105 H 106 H 103 H Pulse Rate [ Anterior Bilateral Bases ] Respiratory 25 H 22 27 H Rate Respiratory Rate [Anterior Bilateral Bases ] Respiratory Rate [ Generalized] Blood Pressure 144/99 144/99 144/99 O2 Sat by Pulse 87 99 99 Oximetry 02/19/21 02/19/21 02/19/21 06:00 06:10 06:20 Temperature Pulse Rate 103 H 105 H 105 H Pulse Rate [ Anterior Bilateral Bases ] Respiratory 25 H 35 H 35 H Rate Respiratory Rate [Anterior Bilateral Bases ] Respiratory Rate [ Generalized] Blood Pressure 144/99 144/99 144/99 O2 Sat by Pulse 96 100 99 Oximetry 02/19/21 02/19/21 02/19/21 06:30 06:40 06:50 Temperature Pulse Rate 105 H 105 H 106 H Pulse Rate [ Anterior Bilateral Bases ] Respiratory 36 H 44 H 44 H Rate Respiratory Rate [Anterior Bilateral Bases ] Respiratory Rate [ Generalized] Blood Pressure 144/99 144/99 144/99 O2 Sat by Pulse 93 97 100 Oximetry 02/19/21 02/19/21 02/19/21 07:00 07:10 07:11 Temperature 98.3 F Pulse Rate 105 H 106 H 106 H Pulse Rate [ 106 H Anterior Bilateral Bases ] Respiratory 29 H 52 H Rate Respiratory 24 Rate [Anterior Bilateral Bases ] Respiratory Rate [ Generalized] Blood Pressure 144/99 O2 Sat by Pulse 100 99 100 Oximetry 02/19/21 02/19/21 02/19/21 07:20 07:30 07:40 Temperature Pulse Rate 106 H 107 H 108 H Pulse Rate [ Anterior Bilateral Bases ] Respiratory 25 H 26 H 27 H Rate Respiratory Rate [Anterior Bilateral Bases ] Respiratory Rate [ Generalized] Blood Pressure O2 Sat by Pulse 94 98 96 Oximetry 02/19/21 02/19/21 02/19/21 07:50 08:00 08:10 Temperature Pulse Rate 99 H 108 H 108 H Pulse Rate [ Anterior Bilateral Bases ] Respiratory 21 24 25 H Rate Respiratory Rate [Anterior Bilateral Bases ] Respiratory Rate [ Generalized] Blood Pressure 110/74 O2 Sat by Pulse 72 L 97 100 Oximetry 02/19/21 02/19/21 02/19/21 08:20 08:30 08:40 Temperature 98.1 F Pulse Rate 109 H 108 H 106 H Pulse Rate [ Anterior Bilateral Bases ] Respiratory 28 H 22 25 H Rate Respiratory Rate [Anterior Bilateral Bases ] Respiratory Rate [ Generalized] Blood Pressure O2 Sat by Pulse 99 97 99 Oximetry 02/19/21 02/19/21 02/19/21 08:50 09:00 09:03 Temperature Pulse Rate 106 H 106 H Pulse Rate [ Anterior Bilateral Bases ] Respiratory 26 H 26 H Rate Respiratory Rate [Anterior Bilateral Bases ] Respiratory 27 H Rate [ Generalized] Blood Pressure O2 Sat by Pulse 99 100 Oximetry Constitutional: comatose, appears uncomfortable, other (myoclonic jerks) ENT: other (orally intubated and not sedated) Neck: supple Ascultation: Right: diminished breath sounds, Left: clear Percussion: Right: dull CBC and BMP: 02/18/21 07:15 02/19/21 08:30 ABG, PT/INR, D-dimer: ABG ABG pH 7.398 (7.320-7.450) 02/19/21 02:45 POC ABG pCO2 45.6 mmHg (32.0-48.0) 02/19/21 02:45 POC ABG pO2 90.3 mmHg (83-108) 02/19/21 02:45 POC ABG HCO3 27.5 02/19/21 02:45 ABG O2 Saturation 96.6 (0-100) 02/19/21 02:45 PT/INR, D-dimer PT 33.9 Sec. (12.2-14.9) H 02/17/21 04:30 INR 3.34 (0.87-1.13) H 02/17/21 04:30 Abnormal lab findings: Abnormal Labs 02/15/21 02/15/21 02/15/21 21:58 21:58 21:58 WBC 27.7 H RBC 3.36 L MCV 121 H MCH 34 H MCHC 28 L RDW 22.7 H Plt Count Seg Neuts % (Manual) 91.0 H Lymphocytes % (Manual) 6.0 L Seg Neutrophils # Man 25.2 H Lymphocytes # (Manual) PT 24.1 H INR 2.12 H APTT 54.1 H ABG pH POC ABG pCO2 POC ABG pO2 ABG Hemoglobin ABG Oxyhemoglobin ABG Sodium ABG Potassium ABG Chloride ABG Glucose Carboxyhemoglobin Sodium Potassium Chloride Carbon Dioxide 15 L D Creatinine Glucose 117 H POC Glucose Lactic Acid Calcium 7.4 L Total Bilirubin 3.30 H AST 207 H ALT Alkaline Phosphatase 302 H Ammonia Total Protein 4.4 L Albumin 1.7 L TSH Arterial Blood Glucose Arterial Blood Ionized Calcium Ur Specific [place] Urine WBC (Auto) 02/15/21 02/15/21 02/15/21 21:58 21:58 21:58 WBC RBC MCV MCH MCHC RDW Plt Count Seg Neuts % (Manual) Lymphocytes % (Manual) Seg Neutrophils # Man Lymphocytes # (Manual) PT INR APTT ABG pH POC ABG pCO2 POC ABG pO2 ABG Hemoglobin ABG Oxyhemoglobin ABG Sodium ABG Potassium ABG Chloride ABG Glucose Carboxyhemoglobin Sodium Potassium Chloride Carbon Dioxide Creatinine Glucose POC Glucose Lactic Acid 14.50 H* Calcium Total Bilirubin AST ALT Alkaline Phosphatase Ammonia 231.0 H Total Protein Albumin TSH 11.520 H Arterial Blood Glucose Arterial Blood Ionized Calcium Ur Specific [place] Urine WBC (Auto) 02/16/21 02/16/21 02/16/21 00:19 03:10 03:10 WBC RBC MCV MCH MCHC RDW Plt Count Seg Neuts % (Manual) Lymphocytes % (Manual) Seg Neutrophils # Man Lymphocytes # (Manual) PT INR APTT ABG pH 7.196 L POC ABG pCO2 POC ABG pO2 238.1 H ABG Hemoglobin ABG Oxyhemoglobin 99.0 H ABG Sodium ABG Potassium ABG Chloride 108.0 H ABG Glucose 116 H Carboxyhemoglobin Sodium Potassium Chloride Carbon Dioxide Creatinine Glucose POC Glucose Lactic Acid 11.10 H* 9.40 H* Calcium Total Bilirubin AST ALT Alkaline Phosphatase Ammonia Total Protein Albumin TSH Arterial Blood Glucose 116 H Arterial Blood Ionized Calcium Ur Specific [place] Urine WBC (Auto) 02/16/21 02/16/21 02/16/21 04:47 04:47 04:47 WBC 29.0 H RBC MCV 107 H MCH 34 H MCHC RDW 21.3 H Plt Count Seg Neuts % (Manual) Lymphocytes % (Manual) Seg Neutrophils # Man Lymphocytes # (Manual) PT 24.3 H INR 2.14 H APTT ABG pH POC ABG pCO2 POC ABG pO2 ABG Hemoglobin ABG Oxyhemoglobin ABG Sodium ABG Potassium ABG Chloride ABG Glucose Carboxyhemoglobin Sodium Potassium Chloride Carbon Dioxide 20 L Creatinine Glucose 126 H POC Glucose Lactic Acid Calcium 6.6 L Total Bilirubin 3.40 H AST 305 H ALT 79 H Alkaline Phosphatase 287 H Ammonia Total Protein 4.5 L Albumin 1.7 L TSH Arterial Blood Glucose Arterial Blood Ionized Calcium Ur Specific [place] Urine WBC (Auto) 02/16/21 02/16/21 02/16/21 07:43 09:43 16:56 WBC RBC MCV MCH MCHC RDW Plt Count Seg Neuts % (Manual) Lymphocytes % (Manual) Seg Neutrophils # Man Lymphocytes # (Manual) PT INR APTT ABG pH 7.294 L POC ABG pCO2 POC ABG pO2 73.5 L ABG Hemoglobin ABG Oxyhemoglobin 92.4 L ABG Sodium ABG Potassium ABG Chloride 111.0 H ABG Glucose 131 H Carboxyhemoglobin Sodium Potassium Chloride Carbon Dioxide Creatinine Glucose POC Glucose 41 L Lactic Acid 11.50 H* Calcium Total Bilirubin AST ALT Alkaline Phosphatase Ammonia Total Protein Albumin TSH Arterial Blood Glucose 131 H Arterial Blood Ionized Calcium 3.8 L Ur Specific [place] Urine WBC (Auto) 02/16/21 02/16/21 02/16/21 16:59 18:00 Unknown WBC RBC MCV MCH MCHC RDW Plt Count Seg Neuts % (Manual) Lymphocytes % (Manual) Seg Neutrophils # Man Lymphocytes # (Manual) PT INR APTT ABG pH POC ABG pCO2 POC ABG pO2 ABG Hemoglobin ABG Oxyhemoglobin ABG Sodium ABG Potassium ABG Chloride ABG Glucose Carboxyhemoglobin Sodium Potassium Chloride Carbon Dioxide Creatinine Glucose POC Glucose 37 L 113 H Lactic Acid Calcium Total Bilirubin AST ALT Alkaline Phosphatase Ammonia Total Protein Albumin TSH Arterial Blood Glucose Arterial Blood Ionized Calcium Ur Specific [place] 1.049 H Urine WBC (Auto) 122.0 H 02/17/21 02/17/21 02/17/21 03:44 04:30 04:30 WBC 35.1 H RBC 3.04 L MCV 112 H MCH 34 H MCHC RDW 22.1 H Plt Count Seg Neuts % (Manual) 88.0 H Lymphocytes % (Manual) 1.0 L Seg Neutrophils # Man 30.9 H Lymphocytes # (Manual) 0.4 L PT 33.9 H INR 3.34 H APTT ABG pH 7.132 L POC ABG pCO2 51.4 H POC ABG pO2 ABG Hemoglobin 11.4 L ABG Oxyhemoglobin 93.0 L ABG Sodium ABG Potassium ABG Chloride 117.0 H ABG Glucose 130 H Carboxyhemoglobin Sodium Potassium Chloride Carbon Dioxide Creatinine Glucose POC Glucose Lactic Acid Calcium Total Bilirubin AST ALT Alkaline Phosphatase Ammonia Total Protein Albumin TSH Arterial Blood Glucose 130 H Arterial Blood Ionized Calcium 3.7 L Ur Specific [place] Urine WBC (Auto) 02/17/21 02/17/21 02/17/21 04:30 04:30 10:40 WBC RBC MCV MCH MCHC RDW Plt Count Seg Neuts % (Manual) Lymphocytes % (Manual) Seg Neutrophils # Man Lymphocytes # (Manual) PT INR APTT ABG pH 7.183 L POC ABG pCO2 63.3 H POC ABG pO2 ABG Hemoglobin ABG Oxyhemoglobin ABG Sodium 148.4 H ABG Potassium ABG Chloride 117.0 H ABG Glucose 129 H Carboxyhemoglobin Sodium 157 H D Potassium Chloride 119.2 H Carbon Dioxide Creatinine Glucose 136 H POC Glucose Lactic Acid Calcium 6.5 L Total Bilirubin 3.40 H AST 450 H ALT 101 H Alkaline Phosphatase 223 H Ammonia 100.0 H Total Protein 3.8 L Albumin 1.5 L TSH Arterial Blood Glucose 129 H Arterial Blood Ionized Calcium 3.5 L Ur Specific [place] Urine WBC (Auto) 02/17/21 02/18/21 02/18/21 14:50 04:18 05:01 WBC RBC MCV MCH MCHC RDW Plt Count Seg Neuts % (Manual) Lymphocytes % (Manual) Seg Neutrophils # Man Lymphocytes # (Manual) PT INR APTT ABG pH 7.221 L 7.278 L POC ABG pCO2 53.8 H POC ABG pO2 73.0 L ABG Hemoglobin 11.6 L 11.2 L ABG Oxyhemoglobin 92.4 L ABG Sodium 147.0 H ABG Potassium 3.1 L ABG Chloride 116.0 H 112.0 H ABG Glucose 127 H 177 H Carboxyhemoglobin 0.3 L Sodium Potassium Chloride Carbon Dioxide Creatinine Glucose POC Glucose 146 H Lactic Acid Calcium Total Bilirubin AST ALT Alkaline Phosphatase Ammonia Total Protein Albumin TSH Arterial Blood Glucose 127 H 177 H Arterial Blood Ionized Calcium 3.4 L 3.1 L Ur Specific [place] Urine WBC (Auto) 02/18/21 02/18/21 02/18/21 07:15 07:15 09:06 WBC 32.8 H RBC 3.33 L MCV 114 H MCH 36 H MCHC RDW 23.0 H Plt Count 135 L Seg Neuts % (Manual) Lymphocytes % (Manual) Seg Neutrophils # Man Lymphocytes # (Manual) PT INR APTT ABG pH POC ABG pCO2 POC ABG pO2 ABG Hemoglobin ABG Oxyhemoglobin ABG Sodium ABG Potassium ABG Chloride ABG Glucose Carboxyhemoglobin Sodium 151 H Potassium Chloride 109.5 H Carbon Dioxide Creatinine Glucose 152 H POC Glucose 162 H Lactic Acid Calcium 5.4 L* D Total Bilirubin 4.30 H AST 277 H ALT 5 L Alkaline Phosphatase 230 H Ammonia Total Protein 3.8 L Albumin 0.9 L TSH Arterial Blood Glucose Arterial Blood Ionized Calcium Ur Specific [place] Urine WBC (Auto) 02/18/21 02/18/21 02/18/21 11:27 17:43 21:32 WBC RBC MCV MCH MCHC RDW Plt Count Seg Neuts % (Manual) Lymphocytes % (Manual) Seg Neutrophils # Man Lymphocytes # (Manual) PT INR APTT ABG pH POC ABG pCO2 POC ABG pO2 ABG Hemoglobin ABG Oxyhemoglobin ABG Sodium ABG Potassium ABG Chloride ABG Glucose Carboxyhemoglobin Sodium Potassium Chloride Carbon Dioxide Creatinine Glucose POC Glucose 172 H 123 H 120 H Lactic Acid Calcium Total Bilirubin AST ALT Alkaline Phosphatase Ammonia Total Protein Albumin TSH Arterial Blood Glucose Arterial Blood Ionized Calcium Ur Specific [place] Urine WBC (Auto) 02/19/21 02/19/21 02:45 08:30 WBC RBC MCV MCH MCHC RDW Plt Count Seg Neuts % (Manual) Lymphocytes % (Manual) Seg Neutrophils # Man Lymphocytes # (Manual) PT INR APTT ABG pH POC ABG pCO2 POC ABG pO2 ABG Hemoglobin 9.9 L ABG Oxyhemoglobin ABG Sodium ABG Potassium 2.7 L ABG Chloride 110.0 H ABG Glucose 116 H Carboxyhemoglobin 0.3 L Sodium 155 H Potassium 3.2 L Chloride 110.6 H Carbon Dioxide 35 H D Creatinine 1.3 H Glucose 108 H POC Glucose Lactic Acid Calcium 4.8 L* Total Bilirubin 4.30 H AST 615 H ALT 138 H Alkaline Phosphatase 257 H Ammonia Total Protein 3.3 L Albumin 1.2 L TSH Arterial Blood Glucose 116 H Arterial Blood Ionized Calcium 2.8 L Ur Specific [place] Urine WBC (Auto)
[2021-02-19] MEDS ORDERED: CALCIUM CHLORIDE 1,000 MG/10 ML SDV IVP ONE ×3 (10:24→20:00)
[2021-02-19] MEDS ORDERED: CALCIUM GLUCONATE 2,000 MG in SODIUM CHLORIDE 0.9% 100 ML IV ONE (11:30)
[2021-02-19] MEDS: VASOPRESSIN 20 UNIT in SODIUM CHLORIDE 0.9% 100 ML IV SCH ×2 (12:01→23:08)
[2021-02-19] MEDS: DEXTROSE 50% IN WATER (25GM) 50 ML SYRINGE IV PRN ×3 (12:17→23:32)
--- NOTE | 2021-02-19 13:47 | Progress Note ---
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 Of note patient was recently discharged on 02/11 from [facility] after treatment for recurrent pleural effusion after thoracentesis x2. Upon arrival of EMS patient was found to be in PEA and required 20 minutes of ACLS to achieve ROSC and the patient was intubated. CXR revealed near complete opacification of the right hemothorax and CT head revealed no acute intracranial abnormality with possible left maxillary and sphinoed sinusitis, C-spine CT showed a large right pleural effusion, CTA chest showed very large right pleural effusion with near complete right lung atelectasis and mediastinal shift to the left and CT abdomen/pelvis showed a very large right pleural effusion which was unchanged , hepatic steatosis and cirrhosis, small amount of ascites. Patient was admitted to the hospital s/p c ardiac arrest, septic shock, ESLD complicated by arthropathy, hepatic encephalopathy, ascites, pleural effusion, acute anoxic encephalopathy and large right pleural effusion. Consults were placed to critical care, neurology, GI and cardiology and WOCN. PMH: ESLD secondary to EtOH abuse, malnutrition, MDD, EV, GIB, psoriasis, hepatic encephalopathy, HTN, recurrent pleural effusions, tobacco dependence, chronic pain, heart failure with reduced EF, pemphigus foilaceous Psx: unknown Social hx: EtOH, nicotine dependence, patient has several children Promise Haile [phone] (daughter) Neuro: Acute hepatic encephalopathy, s/p cardiac arrest, possible anoxic brain injury, major depressive disorder -Neurology consulted, appreciate recommendations -02/16 CT head-image reviewed -CT head pending -Started on sedation for imaging -Patient noted to have possible seizure activity/myoclonic jerks No recent seizure activity -Nuclear med brain flow study -no intracerebral brain flow -EEG pending -Seizure/aspiration precautions -Lactulose every 6 -Trend Ammonia -Thiamine Cardio: ST, s/p cardiac arrest, ?afib, hypotension, heart failure with reduced EF -Echocardiogram from OSH shows EF of 25 to 30% -Repeat echocardiogram pending-not sure how will benefit at this point. -ASA/Lipitor -S/p amio bolus and on amio gtt -Currently on vasopressors: Levophed, vasopressin, epinephrine titrate for map goal of 65 (phenyl epinephrine ordered) -BP monitoring per julian-blood pressure remains low. Respiratory: Acute on chronic hypoxic respiratory failure, recurrent pleural effusions, tobacco dependence, large right pleural effusion -Patient was recently discharged from hospital with supplemental oxygenation, unknown if patient uses currently -Intubated in the field by EMS -OETT 6.0 at 22 at the lip changed to 7.5 OETT 02/17 -Current vent settings: AC tidal volume 450, rate of 20, PEEP of 6, FiO2 100% -02/17 CXR reviewed -02/18 CXR interval worsening -Serial ABGs/CXR -VAP bundle -Wean mechanical ventilation as tolerated GI: ESLD secondary to EtOH abuse, nutrition, esophageal varices, recent GI bleed, transaminitis -GI consulted, appreciate recommendations -02/15 ammonia 231 -Hepatic panel (-) -Lactulose every 6 -Trend ammonia, LFTs -PPI : Metabolic acidosis -s/p sodium bicarb IVP -on D5HCO3 gtt -Strict intake and output -Lee catheter -Daily weights ID: Leukocytosis, ? Sepsis, TEN, h/o pemphigus foilaceous, Fungemia -ID consulted, appreciate recommendations -Presented with hypoxia, tachycardia, leukocytosis, CXR shows consolidation -Antibiotic therapy: Azithromycin and ceftriaxone 02/16, added ligia on 02/17 -02/15 blood cultures x2 culture in progress -02/16 blood cultures x2 culture in progress (1/2 bottles with yeast) -02/15 sputum culture in process -Patient was hypothermic and required Hallie hugger now is normothermic -UA pending -UDS pending Heme: Supratherapeutic INR, coagulopathy 2/2 ESLD -Avoid chemical anticoagulation in setting of supratherapeutic INR -SCDs to bilateral lower extremity while in bed -SCDs for hemoglobin less than 7 -Trend CBC Endo: Hypoglycemia -NTR consult -Accu-Cheks every 4 -D5 bicarb gtt infusing -Nutrition consult -Avoid hypoglycemia -Hypoglycemia protocol Neuro; patient with anoxic encephalopathy see current brain flow study. Patient also on 4 pressors. Prognosis grave. That along with extensive comorbid illnesses including end-stage liver disease and severe sepsis prognosis extremely poor. Family aware. 02/18: BL pupils remain nonresponsive to light. Awaiting NM brain scan and CT brain completion. Patient still requiring pressor support with levophed and vaso. AMio d/c this AM. The high probability of a clinically significant, sudden or life threatening deterioration of the [multi] system(s) required my full and direct attention, intervention and personal management. The aggregate critical care time was [66] minutes. This time is in addition to time spent performing reported procedures but includes the following: [x] Data Review and interpretation [x] Patient assessment and monitoring of vital signs [x] Documentation Subjective Date of service: 02/19/21 Principal diagnosis: Acute hypoxic respiratory failure cardiac arrest Interval history: This is a 50-year-old female with ESLD 2/2 EtOH abuse, malnutrition, major depressive disorder, EV, GIB, psoriasis, hepatic encephalopathy, HTN, recurrent pleural effusion, tobacco dependence, chronic pain, HFrEF (EF 25 to 30%), Pemphigus Foilaceous presented to the emergency department on 02/16 s/p prolonged out of hospital cardiac arrest via EMS after being unresponsiveness post shower (according to family). Of note patient was recently discharged on 02/11 from [facility] after treatment for recurrent pleural effusion after thoracentesis x2. Upon arrival of EMS patient was found to be in PEA and required 20 minutes of ACLS to achieve ROSC and the patient was intubated. CXR revealed near complete opacification of the right hemothorax and CT head revealed no acute intracranial abnormality with possible left maxillary and sphinoed sinusitis, C-spine CT showed a large right pleural effusion, CTA chest showed very large right pleural effusion with near complete right lung atelectasis and mediastinal shift to the left and CT abdomen/pelvis showed a very large right pleural effusion which was unchanged , hepatic steatosis and cirrhosis, small amount of ascites. Patient was admitted to the hospital s/p cardiac arrest, septic shock, ESLD complicated by arthropathy, hepatic encephalopathy, ascites, pleural effusion, acute anoxic encephalopathy and large right pleural effusion 02/19/2021 -- patient today remains intubated unresponsive and currently on 4 pressors. Also brain flow study returns and show intracerebral perfusion was absent. I did have a long discussion with all the family members approximately 6 sons and 1 Explained to them the gravity of the situation. They understood. All questions and concerns answered to their satisfaction. Also a neighbor was there as well. I did mention to the family about the brain flow study. Gave them DO NOT RESUSCITATE form in which they said they most likely will do it and will consider throughout the night. Patient prognosis extremely poor. Objective - Constitutional Vitals: Vital Signs - 12hr 02/19/21 02/19/21 02/19/21 01:50 02:00 02:10 Temperature Pulse Rate 101 H 102 H 102 H Pulse Rate [ 102 H Anterior Bilateral Bases ] Pulse Rate [ From Monitor] Respiratory 25 H 27 H 20 Rate Respiratory 24 Rate [Anterior Bilateral Bases ] Respiratory Rate [ Generalized] Blood Pressure 144/99 144/99 144/99 O2 Sat by Pulse 100 100 99 Oximetry 02/19/21 02/19/21 02/19/21 02:20 02:30 02:40 Temperature Pulse Rate 107 H 101 H 103 H Pulse Rate [ Anterior Bilateral Bases ] Pulse Rate [ From Monitor] Respiratory 24 26 H 26 H Rate Respiratory Rate [Anterior Bilateral Bases ] Respiratory Rate [ Generalized] Blood Pressure 144/99 144/99 144/99 O2 Sat by Pulse 100 99 99 Oximetry 02/19/21 02/19/21 02/19/21 02:50 03:00 03:10 Temperature Pulse Rate 103 H 105 H 105 H Pulse Rate [ Anterior Bilateral Bases ] Pulse Rate [ From Monitor] Respiratory 33 H 24 15 Rate Respiratory Rate [Anterior Bilateral Bases ] Respiratory Rate [ Generalized] Blood Pressure 144/99 144/99 144/99 O2 Sat by Pulse 99 100 96 Oximetry 02/19/21 02/19/21 02/19/21 03:20 03:21 03:30 Temperature Pulse Rate 103 H 102 H 99 H Pulse Rate [ Anterior Bilateral Bases ] Pulse Rate [ From Monitor] Respiratory 27 H 28 H Rate Respiratory Rate [Anterior Bilateral Bases ] Respiratory Rate [ Generalized] Blood Pressure 144/99 121/63 144/99 O2 Sat by Pulse 100 100 100 Oximetry 02/19/21 02/19/21 02/19/21 03:40 03:50 04:00 Temperature 98.3 F Pulse Rate 100 H 109 H 105 H Pulse Rate [ Anterior Bilateral Bases ] Pulse Rate [ From Monitor] Respiratory 27 H 27 H 26 H Rate Respiratory Rate [Anterior Bilateral Bases ] Respiratory Rate [ Generalized] Blood Pressure 144/99 144/99 144/99 O2 Sat by Pulse 100 99 100 Oximetry 02/19/21 02/19/21 02/19/21 04:10 04:20 04:30 Temperature Pulse Rate 104 H 104 H 103 H Pulse Rate [ Anterior Bilateral Bases ] Pulse Rate [ From Monitor] Respiratory 24 23 22 Rate Respiratory Rate [Anterior Bilateral Bases ] Respiratory Rate [ Generalized] Blood Pressure 144/99 144/99 144/99 O2 Sat by Pulse 100 95 96 Oximetry 02/19/21 02/19/21 02/19/21 04:40 04:50 05:00 Temperature Pulse Rate 114 H 104 H Pulse Rate [ Anterior Bilateral Bases ] Pulse Rate [ From Monitor] Respiratory 21 26 H Rate Respiratory Rate [Anterior Bilateral Bases ] Respiratory Rate [ Generalized] Blood Pressure 144/99 144/99 144/99 O2 Sat by Pulse 100 97 66 L Oximetry 02/19/21 02/19/21 02/19/21 05:10 05:20 05:30 Temperature Pulse Rate 104 H 106 H 105 H Pulse Rate [ Anterior Bilateral Bases ] Pulse Rate [ From Monitor] Respiratory 45 H 24 25 H Rate Respiratory Rate [Anterior Bilateral Bases ] Respiratory Rate [ Generalized] Blood Pressure 144/99 144/99 144/99 O2 Sat by Pulse 98 87 Oximetry 02/19/21 02/19/21 02/19/21 05:40 05:50 06:00 Temperature Pulse Rate 106 H 103 H 103 H Pulse Rate [ Anterior Bilateral Bases ] Pulse Rate [ From Monitor] Respiratory 22 27 H 25 H Rate Respiratory Rate [Anterior Bilateral Bases ] Respiratory Rate [ Generalized] Blood Pressure 144/99 144/99 144/99 O2 Sat by Pulse 99 99 96 Oximetry 02/19/21 02/19/21 02/19/21 06:10 06:20 06:30 Temperature Pulse Rate 105 H 105 H 105 H Pulse Rate [ Anterior Bilateral Bases ] Pulse Rate [ From Monitor] Respiratory 35 H 35 H 36 H Rate Respiratory Rate [Anterior Bilateral Bases ] Respiratory Rate [ Generalized] Blood Pressure 144/99 144/99 144/99 O2 Sat by Pulse 100 99 93 Oximetry 02/19/21 02/19/21 02/19/21 06:40 06:50 07:00 Temperature 98.3 F Pulse Rate 105 H 106 H 105 H Pulse Rate [ Anterior Bilateral Bases ] Pulse Rate [ From Monitor] Respiratory 44 H 44 H 29 H Rate Respiratory Rate [Anterior Bilateral Bases ] Respiratory Rate [ Generalized] Blood Pressure 144/99 144/99 144/99 O2 Sat by Pulse 97 100 100 Oximetry 02/19/21 02/19/21 02/19/21 07:10 07:11 07:20 Temperature Pulse Rate 106 H 106 H 106 H Pulse Rate [ 106 H Anterior Bilateral Bases ] Pulse Rate [ From Monitor] Respiratory 52 H 25 H Rate Respiratory 24 Rate [Anterior Bilateral Bases ] Respiratory Rate [ Generalized] Blood Pressure O2 Sat by Pulse 99 100 94 Oximetry 02/19/21 02/19/21 02/19/21 07:30 07:40 07:50 Temperature Pulse Rate 107 H 108 H 99 H Pulse Rate [ Anterior Bilateral Bases ] Pulse Rate [ From Monitor] Respiratory 26 H 27 H 21 Rate Respiratory Rate [Anterior Bilateral Bases ] Respiratory Rate [ Generalized] Blood Pressure O2 Sat by Pulse 98 96 72 L Oximetry 02/19/21 02/19/21 02/19/21 08:00 08:10 08:20 Temperature Pulse Rate 108 H 108 H 109 H Pulse Rate [ Anterior Bilateral Bases ] Pulse Rate [ 98 H From Monitor] Respiratory 26 H 25 H 28 H Rate Respiratory Rate [Anterior Bilateral Bases ] Respiratory Rate [ Generalized] Blood Pressure 110/74 O2 Sat by Pulse 96 100 99 Oximetry 02/19/21 02/19/21 02/19/21 08:30 08:40 08:50 Temperature 98.1 F Pulse Rate 108 H 106 H 106 H Pulse Rate [ Anterior Bilateral Bases ] Pulse Rate [ From Monitor] Respiratory 22 25 H 26 H Rate Respiratory Rate [Anterior Bilateral Bases ] Respiratory Rate [ Generalized] Blood Pressure O2 Sat by Pulse 97 99 99 Oximetry 02/19/21 02/19/21 02/19/21 09:00 09:03 09:10 Temperature Pulse Rate 106 H 106 H Pulse Rate [ Anterior Bilateral Bases ] Pulse Rate [ From Monitor] Respiratory 26 H 28 H Rate Respiratory Rate [Anterior Bilateral Bases ] Respiratory 27 H Rate [ Generalized] Blood Pressure 110/74 O2 Sat by Pulse 100 98 Oximetry 02/19/21 02/19/21 02/19/21 09:20 09:30 09:40 Temperature Pulse Rate 105 H 105 H 104 H Pulse Rate [ Anterior Bilateral Bases ] Pulse Rate [ From Monitor] Respiratory 26 H 35 H 33 H Rate Respiratory Rate [Anterior Bilateral Bases ] Respiratory Rate [ Generalized] Blood Pressure 110/74 110/74 110/74 O2 Sat by Pulse 98 97 98 Oximetry 02/19/21 02/19/21 02/19/21 09:50 10:00 10:10 Temperature Pulse Rate 105 H 104 H 103 H Pulse Rate [ Anterior Bilateral Bases ] Pulse Rate [ From Monitor] Respiratory 28 H 32 H 28 H Rate Respiratory Rate [Anterior Bilateral Bases ] Respiratory Rate [ Generalized] Blood Pressure 110/74 110/74 110/74 O2 Sat by Pulse 98 98 98 Oximetry 02/19/21 02/19/21 02/19/21 10:20 10:30 10:40 Temperature Pulse Rate 104 H 104 H 104 H Pulse Rate [ Anterior Bilateral Bases ] Pulse Rate [ From Monitor] Respiratory 26 H 28 H 30 H Rate Respiratory Rate [Anterior Bilateral Bases ] Respiratory Rate [ Generalized] Blood Pressure 110/74 110/74 110/74 O2 Sat by Pulse 98 97 95 Oximetry 02/19/21 02/19/21 02/19/21 10:50 11:00 11:02 Temperature Pulse Rate 105 H 105 H 105 H Pulse Rate [ Anterior Bilateral Bases ] Pulse Rate [ From Monitor] Respiratory 23 27 H Rate Respiratory Rate [Anterior Bilateral Bases ] Respiratory Rate [ Generalized] Blood Pressure 110/74 110/74 104/49 O2 Sat by Pulse 92 90 92 Oximetry 02/19/21 02/19/21 02/19/21 11:10 11:20 11:30 Temperature Pulse Rate 105 H 104 H 106 H Pulse Rate [ Anterior Bilateral Bases ] Pulse Rate [ From Monitor] Respiratory 23 28 H 28 H Rate Respiratory Rate [Anterior Bilateral Bases ] Respiratory Rate [ Generalized] Blood Pressure 110/74 110/74 110/74 O2 Sat by Pulse 92 94 94 Oximetry 02/19/21 02/19/21 02/19/21 11:40 11:50 12:00 Temperature 98.0 F Pulse Rate 105 H 101 H 101 H Pulse Rate [ Anterior Bilateral Bases ] Pulse Rate [ From Monitor] Respiratory 29 H 29 H 29 H Rate Respiratory Rate [Anterior Bilateral Bases ] Respiratory Rate [ Generalized] Blood Pressure 110/74 110/74 95/48 O2 Sat by Pulse 93 90 71 L Oximetry 02/19/21 02/19/21 02/19/21 12:10 12:20 12:30 Temperature Pulse Rate 96 H 97 H 102 H Pulse Rate [ Anterior Bilateral Bases ] Pulse Rate [ From Monitor] Respiratory 26 H 28 H 35 H Rate Respiratory Rate [Anterior Bilateral Bases ] Respiratory Rate [ Generalized] Blood Pressure 124/64 140/35 O2 Sat by Pulse 85 100 100 Oximetry 02/19/21 12:40 Temperature Pulse Rate 104 H Pulse Rate [ Anterior Bilateral Bases ] Pulse Rate [ From Monitor] Respiratory 26 H Rate Respiratory Rate [Anterior Bilateral Bases ] Respiratory Rate [ Generalized] Blood Pressure 106/62 O2 Sat by Pulse 100 Oximetry General appearance: Present: other (Intubated sedated pupils fixed) - Neck Neck: supple, normal ROM - Respiratory Respiratory: bilateral: diminished (Intubated) - Cardiovascular Rhythm: other (Tachycardic) Extremity abnormal: edema, other (Patient with bullous versus Kim-Laureano type reaction on skin arms back new) - Gastrointestinal General gastrointestinal: Present: soft, non-tender, non-distended, hypoactive bowel sounds - Psychiatric Psychiatric: other (Evidence of anoxia) - Labs CBC & Chem 7: 02/18/21 07:15 02/19/21 08:30 Labs: Abnormal lab results 02/18/21 02/18/21 02/19/21 Range/Units 17:43 21:32 02:45 ABG Hemoglobin 9.9 L (12.0-17.5) ABG Potassium 2.7 L (3.40-4.50) mmol/L ABG Chloride 110.0 H (98-107) mmol/L ABG Glucose 116 H (65-95) mg/dL Carboxyhemoglobin 0.3 L (0.5-1.5) Sodium (137-145) mmol/L Potassium (3.6-5.0) mmol/L Chloride (98-107) mmol/L Carbon Dioxide (22-30) mmol/L Creatinine (0.6-1.2) mg/dL Glucose (65-100) mg/dL POC Glucose 123 H 120 H (70-105) mg/dL Calcium (8.4-10.2) mg/dL Total Bilirubin (0.1-1.2) mg/dL AST (5-40) units/L ALT (7-56) units/L Alkaline Phosphatase (35-129) units/L Total Protein (6.3-8.2) g/dL Albumin (3.9-5) g/dL Arterial Blood Glucose 116 H (65-95) mg/dL Arterial Blood Ionized Calcium 2.8 L (4.6-5.3) mg/dL 02/19/21 02/19/21 Range/Units 08:30 12:04 ABG Hemoglobin (12.0-17.5) ABG Potassium (3.40-4.50) mmol/L ABG Chloride (98-107) mmol/L ABG Glucose (65-95) mg/dL Carboxyhemoglobin (0.5-1.5) Sodium 155 H (137-145) mmol/L Potassium 3.2 L (3.6-5.0) mmol/L Chloride 110.6 H (98-107) mmol/L Carbon Dioxide 35 H D (22-30) mmol/L Creatinine 1.3 H (0.6-1.2) mg/dL Glucose 108 H (65-100) mg/dL POC Glucose 51 L (70-105) mg/dL Calcium 4.8 L* (8.4-10.2) mg/dL Total Bilirubin 4.30 H (0.1-1.2) mg/dL AST 615 H (5-40) units/L ALT 138 H (7-56) units/L Alkaline Phosphatase 257 H (35-129) units/L Total Protein 3.3 L (6.3-8.2) g/dL Albumin 1.2 L (3.9-5) g/dL Arterial Blood Glucose (65-95) mg/dL Arterial Blood Ionized Calcium (4.6-5.3) mg/dL - Imaging and cardiology EKG: report reviewed CT scan - abdomen: report reviewed, image reviewed CT scan - chest: report reviewed HEART Score - HEART Score Troponin: Troponin T < 0.010 ng/mL (0.00-0.029) 02/16/21 03:10
--- NOTE | 2021-02-19 13:59 | Nuclear Medicine Report ---
NM BRAIN FLOW HISTORY: Cardiac arrest. Evaluate blood flow to the brain COMPARISON: None. TECHNIQUE: Following administration of radiopharmaceutical, followed by a saline flush, immediate dyn amic images of the head and neck were acquired in the anterior projection for one minute. Subsequentl y, static images of the head were obtained. RADIOPHARMACEUTICAL: 20 mCi of technetium 99m pertechnetate FINDINGS: DYNAMIC IMAGING: No activity in the internal carotid arteries with no identification of the anterior and middle cerebral arteries. DELAYED IMAGING: No intracranial acitivity is identified. Increased activity in the nose is indicati ve of increased collateral flow through the external carotids. Additional Findings: None. IMPRESSION: 1. Intracranial cerebral perfusion is absent. Signer Name: Matteo Moran Jr, MD Signed: 02/19/2021 1:54 PM Workstation Name: [id number]
--- NOTE | 2021-02-19 14:10 | Progress Note ---
Assessment and Plan Cultures: Blood culture 02/16/2021 Yeast A/P: 50-year-old female past medical history ESLD, alcohol abuse, malnutrition, esophageal varices, psoriasis #Acute sepsis: With hypothermia and leukocytosis. Secondary to candidemia as well as critical illness #Global rash: burn from shower vs TEN/SJS? #Candidemia: Await speciation and DICK from blood cultures. Negative TTE #Staph bacteremia: Source is likely global skin rash #Cardiac arrest: Currently unresponsive, poor prognosis #ESLD Recs: -Follow blood culture data -Continue micafungin pending finalized culture data. Ideally could transfer to fluconazole if Emiliana albicans -Started vancomycin goal trough 10-20, de-escalate cefazolin if cultures returned as MSSA -Agree with goals of care discussion with family Thank you for the consult, we will continue to follow. Shanika Elizabeth MD [facility] [place] [facility] ([facility]) O: [phone] F: [phone] Subjective Date of service: 02/19/21 Principal diagnosis: Acute hypoxic respiratory failure cardiac arrest Interval history: Afebrile, no acute change. Remains non-responsive. Imaging personally reviewed: CXR: No change. Objective - Exam Narrative Exam: Physical Exam: Constitutional: Intubated, nonresponsive Head, Ears, Nose: Normocephalic, atraumatic. External ears, nose normal Eyes: Conjunctivae/corneas clear. No icterus. No ptosis. Neck: ETT Oral: ETT Cardiovascular: S1, S2 normal. Respiratory: Good air entry, clear to auscultation bilaterally GI: Soft, non-tender; bowel sounds normal. No peritoneal signs. Musculoskeletal: No pedal edema, no cyanosis. Skin: Global red rash with skin sloughing. Hem/Lymphatic: No palpable cervical or supraclavicular nodes. No lymphangitis Psych: Nonresponsive Neurological: Nonresponsive - Constitutional Vitals: Vital Signs Temp Pulse Resp BP Pulse Ox 98.0 F 104 H 26 H 106/62 100 02/19/21 12:00 02/19/21 12:40 02/19/21 12:40 02/19/21 12:40 02/19/21 12:40 Temperature -Last 24 Hours Temperature 98.0 F Temperature 98.1 F Temperature 98.3 F Temperature 98.3 F Temperature 97.9 F Temperature 95.3 F - Labs CBC & Chem 7: 02/18/21 07:15 02/19/21 08:30 Labs: Abnormal lab results 02/18/21 02/18/21 02/19/21 Range/Units 17:43 21:32 02:45 ABG Hemoglobin 9.9 L (12.0-17.5) ABG Potassium 2.7 L (3.40-4.50) mmol/L ABG Chloride 110.0 H (98-107) mmol/L ABG Glucose 116 H (65-95) mg/dL Carboxyhemoglobin 0.3 L (0.5-1.5) Sodium (137-145) mmol/L Potassium (3.6-5.0) mmol/L Chloride (98-107) mmol/L Carbon Dioxide (22-30) mmol/L Creatinine (0.6-1.2) mg/dL Glucose (65-100) mg/dL POC Glucose 123 H 120 H (70-105) mg/dL Calcium (8.4-10.2) mg/dL Total Bilirubin (0.1-1.2) mg/dL AST (5-40) units/L ALT (7-56) units/L Alkaline Phosphatase (35-129) units/L Total Protein (6.3-8.2) g/dL Albumin (3.9-5) g/dL Arterial Blood Glucose 116 H (65-95) mg/dL Arterial Blood Ionized Calcium 2.8 L (4.6-5.3) mg/dL 02/19/21 02/19/21 02/19/21 Range/Units 08:30 12:04 13:48 ABG Hemoglobin (12.0-17.5) ABG Potassium (3.40-4.50) mmol/L ABG Chloride (98-107) mmol/L ABG Glucose (65-95) mg/dL Carboxyhemoglobin (0.5-1.5) Sodium 155 H (137-145) mmol/L Potassium 3.2 L (3.6-5.0) mmol/L Chloride 110.6 H (98-107) mmol/L Carbon Dioxide 35 H D (22-30) mmol/L Creatinine 1.3 H (0.6-1.2) mg/dL Glucose 108 H (65-100) mg/dL POC Glucose 51 L 63 L (70-105) mg/dL Calcium 4.8 L* (8.4-10.2) mg/dL Total Bilirubin 4.30 H (0.1-1.2) mg/dL AST 615 H (5-40) units/L ALT 138 H (7-56) units/L Alkaline Phosphatase 257 H (35-129) units/L Total Protein 3.3 L (6.3-8.2) g/dL Albumin 1.2 L (3.9-5) g/dL Arterial Blood Glucose (65-95) mg/dL Arterial Blood Ionized Calcium (4.6-5.3) mg/dL
[2021-02-19] MEDS ORDERED: VANCOMYCIN 1,250 MG in SODIUM CHLORIDE 0.9% 250ML 250 ML IV SCH (15:00)
[2021-02-19] MEDS ORDERED: VANCOMYCIN PHARMACY TO DOSE IV SCH (15:00)
[2021-02-19] MEDS ORDERED: SODIUM CHLORIDE 0.9% 1000 ML 1,000 ML ONE (15:26)
[2021-02-19] MEDS: PHENYLEPHRINE 100 MG in SODIUM CHLORIDE 0.9% 90 ML IV SCH (15:32)
[2021-02-19] MEDS: MICAFUNGIN 100 MG in SODIUM CHLORIDE 0.9% 100 ML IV SCH (15:54)
[2021-02-19] MEDS ORDERED: CALCIUM GLUCONATE 1,000 MG in SODIUM CHLORIDE 0.9% 100 ML IV ONE (18:00)
[2021-02-19] MEDS: NORepinephrine/NS 8 MG-250 ML 8 MG/250 ML INFUS..BTL IV SCH (22:16)
[2021-02-20] MEDS: LACTULOSE 20 GM/30 ML ORAL LIQD PO SCH ×3 (00:04→11:10)
[2021-02-20] MEDS: EPINEPHrine 1 MG/1 ML 8 MG in SODIUM CHLORIDE 0.9% 250ML 242 ML IV SCH (03:03)
[2021-02-20] MEDS: IPRATROPIUM/ALBUTEROL SULFATE 3 ML AMPUL.NEB IH SCH ×2 (03:08→07:53)
--- NOTE | 2021-02-20 04:40 | XRay Report ---
CHEST 1 VIEW 02/20/2021 4:05 AM INDICATION / CLINICAL INFORMATION: follow up respiratory failure. COMPARISON: 321 FINDINGS: SUPPORT DEVICES: Unchanged. HEART / MEDIASTINUM: Stable. LUNGS / PLEURA: Bilateral pulmonary opacities and moderate right pleural effusion are unchanged. No p neumothorax. ADDITIONAL FINDINGS: No significant additional findings. IMPRESSION: 1. No significant change. Signer Name: Salome Solorio MD Signed: 02/20/2021 4:35 AM Workstation Name: [id number]
[2021-02-20] MEDS: NORepinephrine/NS 8 MG-250 ML 8 MG/250 ML INFUS..BTL IV SCH ×2 (05:27→11:27)
[2021-02-20] MEDS: DEXTROSE 50% IN WATER (25GM) 50 ML SYRINGE IV PRN ×4 (05:28→11:26)
[2021-02-20 05:36] VITALS: BP 97/64
[2021-02-20 05:44] LABS: Mean Corpuscular HGB Conc 30 % (30-34); Red Blood Count 3.12 M/mm3 (3.65-5.03)
[2021-02-20 05:54] LABS: Hematocrit 35.2 % (30.3-42.9); Hemoglobin 10.7 gm/dl (10.1-14.3); Mean Corpuscular Volume 113 fl (79-97); Platelet Count 70 K/mm3 (140-440); Red Cell Distribution Width 23.1 % (13.2-15.2)
[2021-02-20 06:38] LABS: Albumin 1.1 g/dL (3.9-5)
[2021-02-20 07:40] LABS: Calcium 4.9 mg/dL (8.4-10.2)
[2021-02-20] MEDS: PHENYLEPHRINE 100 MG in SODIUM CHLORIDE 0.9% 90 ML IV SCH (08:01)
--- NOTE | 2021-02-20 08:46 | Progress Note ---
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 Of note patient was recently discharged on 02/11 from [facility] after treatment for recurrent pleural effusion after thoracentesis x2. Upon arrival of EMS patient was found to be in PEA and required 20 minutes of ACLS to achieve ROSC and the patient was intubated. CXR revealed near complete opacification of the right hemothorax and CT head revealed no acute intracranial abnormality with possible left maxillary and sphinoed sinusitis, C-spine CT showed a large right pleural effusion, CTA chest showed very large right pleural effusion with near complete right lung atelectasis and mediastinal shift to the left and CT abdomen/pelvis showed a very large right pleural effusion which was unchanged , hepatic steatosis and cirrhosis, small amount of ascites. Patient was admitted to the hospital s/p c ardiac arrest, septic shock, ESLD complicated by arthropathy, hepatic encephalopathy, ascites, pleural effusion, acute anoxic encephalopathy and large right pleural effusion. Consults were placed to critical care, neurology, GI and cardiology and WOCN. PMH: ESLD secondary to EtOH abuse, malnutrition, MDD, EV, GIB, psoriasis, hepatic encephalopathy, HTN, recurrent pleural effusions, tobacco dependence, chronic pain, heart failure with reduced EF, pemphigus foilaceous Psx: unknown Social hx: EtOH, nicotine dependence, patient has several children Promise Haile [phone] (daughter) Neuro: Acute hepatic encephalopathy, s/p cardiac arrest, possible anoxic brain injury, major depressive disorder -Neurology consulted, appreciate recommendations -02/16 CT head-image reviewed -CT head pending -Started on sedation for imaging -Patient noted to have possible seizure activity/myoclonic jerks No recent seizure activity -Nuclear med brain flow study -no intracerebral brain flow -EEG pending -Seizure/aspiration precautions -Lactulose every 6 -Trend Ammonia -Thiamine -Talk to family again about brain flow study brain -Wants to speak with phlebotomist to come pick family member. Cardio: ST, s/p cardiac arrest, ?afib, hypotension, heart failure with reduced EF -Echocardiogram from OSH shows EF of 25 to 30% -Repeat echocardiogram pending-not sure how will benefit at this point. -ASA/Lipitor -S/p amio bolus and on amio gtt -Currently on vasopressors: Levophed, vasopressin, epinephrine titrate for map goal of 65 (phenyl epinephrine ordered) -BP monitoring per julian-blood pressure remains low. Respiratory: Acute on chronic hypoxic respiratory failure, recurrent pleural effusions, tobacco dependence, large right pleural effusion -Patient was recently discharged from hospital with supplemental oxygenation, unknown if patient uses currently -Intubated in the field by EMS -OETT 6.0 at 22 at the lip changed to 7.5 OETT 02/17 -Current vent settings: AC tidal volume 450, rate of 20, PEEP of 6, FiO2 100% -02/17 CXR reviewed -02/18 CXR interval worsening -Serial ABGs/CXR -VAP bundle -Wean mechanical ventilation as tolerated GI: ESLD secondary to EtOH abuse, nutrition, esophageal varices, recent GI bleed, transaminitis -GI consulted, appreciate recommendations -02/15 ammonia 231 -Hepatic panel (-) -Lactulose every 6 -Trend ammonia, LFTs -PPI : Metabolic acidosis -s/p sodium bicarb IVP -on D5HCO3 gtt -Strict intake and output -Lee catheter -Daily weights ID: Leukocytosis, ? Sepsis, TEN, h/o pemphigus foilaceous, Fungemia -ID consulted, appreciate recommendations -Presented with hypoxia, tachycardia, leukocytosis, CXR shows consolidation -Antibiotic therapy: Azithromycin and ceftriaxone 02/16, added ligia on 02/17 -02/15 blood cultures x2 culture in progress -02/16 blood cultures x2 culture in progress (1/2 bottles with yeast) -02/15 sputum culture in process -Patient was hypothermic and required Hallie hugger now is normothermic -UA pending -UDS pending Heme: Supratherapeutic INR, coagulopathy 2/2 ESLD -Avoid chemical anticoagulation in setting of supratherapeutic INR -SCDs to bilateral lower extremity while in bed -SCDs for hemoglobin less than 7 -Trend CBC Endo: Hypoglycemia -NTR consult Patient not able to maintain nutrition. Would not add feeding tube at this time secondary to extremely poor prognosis and brain . -Accu-Cheks every 4-should be able to cut Accu-Cheks off would not make a difference at this point. -D5 bicarb gtt infusing -Nutrition consult -Avoid hypoglycemia -Hypoglycemia protocol Neuro; patient with anoxic encephalopathy see current brain flow study. Patient also on 4 pressors. Prognosis grave. That along with extensive comorbid illnesses including end-stage liver disease and severe sepsis prognosis extremely poor. Family aware. 02/18: BL pupils remain nonresponsive to light. Awaiting NM brain scan and CT brain completion. Patient still requiring pressor support with levophed and vaso. AMio d/c this AM. The high probability of a clinically significant, sudden or life threatening deterioration of the [multi] system(s) required my full and direct attention, intervention and personal management. The aggregate critical care time was [66] minutes. This time is in addition to time spent performing reported procedures but includes the following: [x] Data Review and interpretation [x] Patient assessment and monitoring of vital signs [x] Documentation Subjective Date of service: 02/20/21 Principal diagnosis: Acute hypoxic respiratory failure cardiac arrest Interval history: This is a 50-year-old female with ESLD 2/2 EtOH abuse, malnutrition, major depressive disorder, EV, GIB, psoriasis, hepatic encephalopathy, HTN, recurrent pleural effusion, tobacco dependence, chronic pain, HFrEF (EF 25 to 30%), Pemphigus Foilaceous presented to the emergency department on 02/16 s/p prolonged out of hospital cardiac arrest via EMS after being unresponsiveness post shower (according to family). Of note patient was recently discharged on 02/11 from [facility] after treatment for recurrent pleural effusion after thoracentesis x2. Upon arrival of EMS patient was found to be in PEA and required 20 minutes of ACLS to achieve ROSC and the patient was intubated. CXR revealed near complete opacification of the right hemothorax and CT head revealed no acute intracranial abnormality with possible left maxillary and sphinoed sinusitis, C-spine CT showed a large right pleural effusion, CTA chest showed very large right pleural effusion with near complete right lung atelectasis and mediastinal shift to the left and CT abdomen/pelvis showed a very large right pleural effusion which was unchanged , hepatic steatosis and cirrhosis, small amount of ascites. Patient was admitted to the hospital s/p c ardiac arrest, septic shock, ESLD complicated by arthropathy, hepatic encephalopathy, ascites, pleural effusion, acute anoxic encephalopathy and large right pleural effusion 02/19/2021 -- patient today remains intubated unresponsive and currently on 4 pressors. Also brain flow study returns and show intracerebral perfusion was absent. I did have a long discussion with all the family members approximately 6 sons and 1 Explained to them the gravity of the situation. They u nderstood. All questions and concerns answered to their satisfaction. Also a neighbor was there as well. I did mention to the family about the brain flow study. Gave them DO NOT RESUSCITATE form in which they said they most likely will do it and will consider throughout the night. Patient prognosis extremely poor. Objective - Constitutional Vitals: Vital Signs - 12hr 02/19/21 02/19/21 02/19/21 20:51 21:01 21:10 Temperature Pulse Rate 103 H 103 H 103 H Pulse Rate [ Anterior Bilateral Bases ] Pulse Rate [ Anterior Left Upper Lobe] Pulse Rate [ From Monitor] Pulse Rate [ None] Respiratory 21 26 H 25 H Rate Respiratory Rate [Anterior Bilateral Bases ] Respiratory Rate [Anterior Left Upper Lobe ] Blood Pressure 114/57 109/67 123/60 O2 Sat by Pulse 92 97 100 Oximetry 02/19/21 02/19/21 02/19/21 21:20 21:30 21:40 Temperature Pulse Rate 102 H 102 H 102 H Pulse Rate [ Anterior Bilateral Bases ] Pulse Rate [ Anterior Left Upper Lobe] Pulse Rate [ From Monitor] Pulse Rate [ None] Respiratory 19 25 H 25 H Rate Respiratory Rate [Anterior Bilateral Bases ] Respiratory Rate [Anterior Left Upper Lobe ] Blood Pressure 130/61 130/61 116/57 O2 Sat by Pulse 100 100 80 L Oximetry 02/19/21 02/19/21 02/19/21 21:50 22:00 22:10 Temperature Pulse Rate 102 H 102 H 101 H Pulse Rate [ Anterior Bilateral Bases ] Pulse Rate [ Anterior Left Upper Lobe] Pulse Rate [ From Monitor] Pulse Rate [ None] Respiratory 25 H 23 26 H Rate Respiratory Rate [Anterior Bilateral Bases ] Respiratory Rate [Anterior Left Upper Lobe ] Blood Pressure 114/54 129/48 111/51 O2 Sat by Pulse 82 L Oximetry 02/19/21 02/19/21 02/19/21 22:20 22:30 22:34 Temperature Pulse Rate 99 H 98 H 98 H Pulse Rate [ Anterior Bilateral Bases ] Pulse Rate [ Anterior Left Upper Lobe] Pulse Rate [ From Monitor] Pulse Rate [ None] Respiratory 24 26 H 27 H Rate Respiratory Rate [Anterior Bilateral Bases ] Respiratory Rate [Anterior Left Upper Lobe ] Blood Pressure 108/52 103/48 103/48 O2 Sat by Pulse 78 L Oximetry 02/19/21 02/19/21 02/19/21 22:40 22:50 23:00 Temperature Pulse Rate 98 H 96 H 97 H Pulse Rate [ Anterior Bilateral Bases ] Pulse Rate [ Anterior Left Upper Lobe] Pulse Rate [ From Monitor] Pulse Rate [ None] Respiratory 21 20 26 H Rate Respiratory Rate [Anterior Bilateral Bases ] Respiratory Rate [Anterior Left Upper Lobe ] Blood Pressure 93/43 93/43 102/49 O2 Sat by Pulse 81 L 77 L 78 L Oximetry 02/19/21 02/19/21 02/19/21 23:10 23:20 23:30 Temperature Pulse Rate 96 H 97 H 96 H Pulse Rate [ Anterior Bilateral Bases ] Pulse Rate [ Anterior Left Upper Lobe] Pulse Rate [ From Monitor] Pulse Rate [ None] Respiratory 19 25 H 19 Rate Respiratory Rate [Anterior Bilateral Bases ] Respiratory Rate [Anterior Left Upper Lobe ] Blood Pressure 102/49 97/64 97/64 O2 Sat by Pulse 100 99 Oximetry 02/19/21 02/19/21 02/19/21 23:40 23:43 23:50 Temperature 98.1 F Pulse Rate 95 H 96 H Pulse Rate [ Anterior Bilateral Bases ] Pulse Rate [ Anterior Left Upper Lobe] Pulse Rate [ From Monitor] Pulse Rate [ None] Respiratory 28 H 39 H Rate Respiratory Rate [Anterior Bilateral Bases ] Respiratory Rate [Anterior Left Upper Lobe ] Blood Pressure 97/64 97/64 O2 Sat by Pulse 93 96 Oximetry 02/20/21 02/20/21 02/20/21 00:00 00:10 00:20 Temperature Pulse Rate 98 H 98 H 100 H Pulse Rate [ Anterior Bilateral Bases ] Pulse Rate [ Anterior Left Upper Lobe] Pulse Rate [ 104 H From Monitor] Pulse Rate [ None] Respiratory 28 H 34 H 51 H Rate Respiratory Rate [Anterior Bilateral Bases ] Respiratory Rate [Anterior Left Upper Lobe ] Blood Pressure 97/64 97/64 97/64 O2 Sat by Pulse 98 97 98 Oximetry 02/20/21 02/20/21 02/20/21 00:30 00:40 00:50 Temperature Pulse Rate 97 H 96 H 95 H Pulse Rate [ Anterior Bilateral Bases ] Pulse Rate [ Anterior Left Upper Lobe] Pulse Rate [ From Monitor] Pulse Rate [ None] Respiratory 21 19 23 Rate Respiratory Rate [Anterior Bilateral Bases ] Respiratory Rate [Anterior Left Upper Lobe ] Blood Pressure 97/64 97/64 97/64 O2 Sat by Pulse 91 Oximetry 02/20/21 02/20/21 02/20/21 01:00 01:10 01:20 Temperature Pulse Rate 95 H 93 H 93 H Pulse Rate [ Anterior Bilateral Bases ] Pulse Rate [ Anterior Left Upper Lobe] Pulse Rate [ From Monitor] Pulse Rate [ None] Respiratory 25 H 20 17 Rate Respiratory Rate [Anterior Bilateral Bases ] Respiratory Rate [Anterior Left Upper Lobe ] Blood Pressure 97/64 97/64 97/64 O2 Sat by Pulse 91 95 Oximetry 02/20/21 02/20/21 02/20/21 01:30 01:40 01:50 Temperature Pulse Rate 92 H 92 H 91 H Pulse Rate [ Anterior Bilateral Bases ] Pulse Rate [ Anterior Left Upper Lobe] Pulse Rate [ From Monitor] Pulse Rate [ None] Respiratory 19 19 22 Rate Respiratory Rate [Anterior Bilateral Bases ] Respiratory Rate [Anterior Left Upper Lobe ] Blood Pressure 97/64 116/57 97/64 O2 Sat by Pulse Oximetry 02/20/21 02/20/21 02/20/21 02:00 02:11 02:21 Temperature Pulse Rate 91 H 89 91 H Pulse Rate [ Anterior Bilateral Bases ] Pulse Rate [ Anterior Left Upper Lobe] Pulse Rate [ From Monitor] Pulse Rate [ None] Respiratory 16 18 20 Rate Respiratory Rate [Anterior Bilateral Bases ] Respiratory Rate [Anterior Left Upper Lobe ] Blood Pressure 116/57 97/64 97/64 O2 Sat by Pulse 100 Oximetry 02/20/21 02/20/21 02/20/21 02:31 02:41 02:51 Temperature Pulse Rate 93 H 93 H 93 H Pulse Rate [ Anterior Bilateral Bases ] Pulse Rate [ Anterior Left Upper Lobe] Pulse Rate [ From Monitor] Pulse Rate [ None] Respiratory 19 20 21 Rate Respiratory Rate [Anterior Bilateral Bases ] Respiratory Rate [Anterior Left Upper Lobe ] Blood Pressure 97/64 97/64 97/64 O2 Sat by Pulse 94 Oximetry 02/20/21 02/20/21 02/20/21 03:01 03:08 03:11 Temperature Pulse Rate 92 H 92 H 92 H Pulse Rate [ 94 H Anterior Bilateral Bases ] Pulse Rate [ Anterior Left Upper Lobe] Pulse Rate [ From Monitor] Pulse Rate [ None] Respiratory 18 20 Rate Respiratory 31 H Rate [Anterior Bilateral Bases ] Respiratory Rate [Anterior Left Upper Lobe ] Blood Pressure 97/64 118/48 97/64 O2 Sat by Pulse 96 93 Oximetry 02/20/21 02/20/21 02/20/21 03:21 03:31 03:41 Temperature Pulse Rate 92 H 93 H 94 H Pulse Rate [ Anterior Bilateral Bases ] Pulse Rate [ Anterior Left Upper Lobe] Pulse Rate [ From Monitor] Pulse Rate [ None] Respiratory 21 30 H 29 H Rate Respiratory Rate [Anterior Bilateral Bases ] Respiratory Rate [Anterior Left Upper Lobe ] Blood Pressure 97/64 97/64 97/64 O2 Sat by Pulse 93 Oximetry 02/20/21 02/20/21 02/20/21 03:51 04:00 04:01 Temperature 97.3 F L Pulse Rate 94 H 95 H Pulse Rate [ Anterior Bilateral Bases ] Pulse Rate [ Anterior Left Upper Lobe] Pulse Rate [ 104 H From Monitor] Pulse Rate [ None] Respiratory 26 H 25 H 24 Rate Respiratory Rate [Anterior Bilateral Bases ] Respiratory Rate [Anterior Left Upper Lobe ] Blood Pressure 97/64 97/64 O2 Sat by Pulse 90 Oximetry 02/20/21 02/20/21 02/20/21 04:11 04:14 04:21 Temperature Pulse Rate 94 H 93 H Pulse Rate [ Anterior Bilateral Bases ] Pulse Rate [ Anterior Left Upper Lobe] Pulse Rate [ From Monitor] Pulse Rate [ None] Respiratory 31 H 30 H Rate Respiratory Rate [Anterior Bilateral Bases ] Respiratory Rate [Anterior Left Upper Lobe ] Blood Pressure 97/64 97/64 O2 Sat by Pulse 98 Oximetry 02/20/21 02/20/21 02/20/21 04:31 04:41 04:51 Temperature Pulse Rate 81 91 H 92 H Pulse Rate [ Anterior Bilateral Bases ] Pulse Rate [ Anterior Left Upper Lobe] Pulse Rate [ From Monitor] Pulse Rate [ None] Respiratory 18 23 25 H Rate Respiratory Rate [Anterior Bilateral Bases ] Respiratory Rate [Anterior Left Upper Lobe ] Blood Pressure 97/64 97/64 97/64 O2 Sat by Pulse Oximetry 02/20/21 02/20/21 02/20/21 05:01 05:11 05:21 Temperature Pulse Rate 93 H 92 H 91 H Pulse Rate [ Anterior Bilateral Bases ] Pulse Rate [ Anterior Left Upper Lobe] Pulse Rate [ From Monitor] Pulse Rate [ None] Respiratory 23 24 22 Rate Respiratory Rate [Anterior Bilateral Bases ] Respiratory Rate [Anterior Left Upper Lobe ] Blood Pressure 97/64 97/64 97/64 O2 Sat by Pulse Oximetry 02/20/21 02/20/21 02/20/21 05:31 05:41 05:51 Temperature Pulse Rate 90 87 174 H Pulse Rate [ Anterior Bilateral Bases ] Pulse Rate [ Anterior Left Upper Lobe] Pulse Rate [ From Monitor] Pulse Rate [ None] Respiratory 24 21 22 Rate Respiratory Rate [Anterior Bilateral Bases ] Respiratory Rate [Anterior Left Upper Lobe ] Blood Pressure 97/64 97/64 97/64 O2 Sat by Pulse 85 Oximetry 02/20/21 02/20/21 02/20/21 06:01 06:11 06:21 Temperature Pulse Rate 88 88 86 Pulse Rate [ Anterior Bilateral Bases ] Pulse Rate [ Anterior Left Upper Lobe] Pulse Rate [ From Monitor] Pulse Rate [ None] Respiratory 19 14 16 Rate Respiratory Rate [Anterior Bilateral Bases ] Respiratory Rate [Anterior Left Upper Lobe ] Blood Pressure 97/64 97/64 97/64 O2 Sat by Pulse 100 Oximetry 02/20/21 02/20/21 02/20/21 06:31 06:41 06:51 Temperature Pulse Rate 88 88 89 Pulse Rate [ Anterior Bilateral Bases ] Pulse Rate [ Anterior Left Upper Lobe] Pulse Rate [ From Monitor] Pulse Rate [ None] Respiratory 17 14 12 Rate Respiratory Rate [Anterior Bilateral Bases ] Respiratory Rate [Anterior Left Upper Lobe ] Blood Pressure 97/64 97/64 97/64 O2 Sat by Pulse Oximetry 02/20/21 02/20/21 02/20/21 07:01 07:11 07:21 Temperature Pulse Rate 89 88 88 Pulse Rate [ Anterior Bilateral Bases ] Pulse Rate [ Anterior Left Upper Lobe] Pulse Rate [ From Monitor] Pulse Rate [ None] Respiratory 15 15 15 Rate Respiratory Rate [Anterior Bilateral Bases ] Respiratory Rate [Anterior Left Upper Lobe ] Blood Pressure 97/64 97/64 97/64 O2 Sat by Pulse Oximetry 02/20/21 02/20/21 02/20/21 07:31 07:40 07:51 Temperature Pulse Rate 88 87 86 Pulse Rate [ Anterior Bilateral Bases ] Pulse Rate [ Anterior Left Upper Lobe] Pulse Rate [ From Monitor] Pulse Rate [ None] Respiratory 20 24 17 Rate Respiratory Rate [Anterior Bilateral Bases ] Respiratory Rate [Anterior Left Upper Lobe ] Blood Pressure 97/64 116/57 97/64 O2 Sat by Pulse 99 Oximetry 02/20/21 02/20/21 02/20/21 07:53 08:00 08:01 Temperature Pulse Rate 86 Pulse Rate [ 94 H Anterior Bilateral Bases ] Pulse Rate [ 98 H Anterior Left Upper Lobe] Pulse Rate [ 85 From Monitor] Pulse Rate [ None] Respiratory 15 15 Rate Respiratory 27 H Rate [Anterior Bilateral Bases ] Respiratory 27 H Rate [Anterior Left Upper Lobe ] Blood Pressure 97/64 O2 Sat by Pulse 100 Oximetry 02/20/21 08:10 Temperature 93 F L Pulse Rate Pulse Rate [ Anterior Bilateral Bases ] Pulse Rate [ Anterior Left Upper Lobe] Pulse Rate [ From Monitor] Pulse Rate [ 86 None] Respiratory 15 Rate Respiratory Rate [Anterior Bilateral Bases ] Respiratory Rate [Anterior Left Upper Lobe ] Blood Pressure O2 Sat by Pulse 98 Oximetry General appearance: Present: other (Pupils fixed dilated) - EENT ENT: other (Unresponsive severe anoxic encephalopathy) - Respiratory Respiratory effort: other (Not breathing over the vent bilateral crackles) - Cardiovascular Rhythm: regular Extremity abnormal: other (Edematous extensive pemphigus and rash mottling) - Gastrointestinal General gastrointestinal: Present: non-tender, distended, hypoactive bowel sounds - Musculoskeletal Musculoskeletal: generalized weakness - Neurologic Neurologic: focal deficits - Labs CBC & Chem 7: 02/20/21 05:00 02/20/21 05:00 Labs: Abnormal lab results 02/19/21 02/19/21 02/19/21 Range/Units 08:30 12:04 13:48 WBC (4.5-11.0) K/mm3 RBC (3.65-5.03) M/mm3 MCV (79-97) fl MCH (28-32) pg RDW (13.2-15.2) % Plt Count (140-440) K/mm3 ABG pH (7.320-7.450) POC ABG pCO2 (32.0-48.0) mmHg POC ABG pO2 (83-108) mmHg ABG Hemoglobin (12.0-17.5) ABG Oxyhemoglobin (94-98) ABG Sodium (136.0-145.0) mmol/L ABG Potassium (3.40-4.50) mmol/L ABG Chloride (98-107) mmol/L Carboxyhemoglobin (0.5-1.5) Sodium 155 H (137-145) mmol/L Potassium 3.2 L (3.6-5.0) mmol/L Chloride 110.6 H (98-107) mmol/L Carbon Dioxide 35 H D (22-30) mmol/L Creatinine 1.3 H (0.6-1.2) mg/dL Glucose 108 H (65-100) mg/dL POC Glucose 51 L 63 L (70-105) mg/dL Lactic Acid (0.7-2.0) mmol/L Calcium 4.8 L* (8.4-10.2) mg/dL Phosphorus (2.5-4.5) mg/dL Magnesium (1.7-2.3) mg/dL Total Bilirubin 4.30 H (0.1-1.2) mg/dL AST 615 H (5-40) units/L ALT 138 H (7-56) units/L Alkaline Phosphatase 257 H (35-129) units/L Ammonia (25-60) umol/L Total Protein 3.3 L (6.3-8.2) g/dL Albumin 1.2 L (3.9-5) g/dL Arterial Blood Ionized Calcium (4.6-5.3) mg/dL 02/19/21 02/19/21 02/19/21 Range/Units 23:20 23:30 23:51 WBC (4.5-11.0) K/mm3 RBC (3.65-5.03) M/mm3 MCV (79-97) fl MCH (28-32) pg RDW (13.2-15.2) % Plt Count (140-440) K/mm3 ABG pH (7.320-7.450) POC ABG pCO2 (32.0-48.0) mmHg POC ABG pO2 (83-108) mmHg ABG Hemoglobin (12.0-17.5) ABG Oxyhemoglobin (94-98) ABG Sodium (136.0-145.0) mmol/L ABG Potassium (3.40-4.50) mmol/L ABG Chloride (98-107) mmol/L Carboxyhemoglobin (0.5-1.5) Sodium (137-145) mmol/L Potassium (3.6-5.0) mmol/L Chloride (98-107) mmol/L Carbon Dioxide (22-30) mmol/L Creatinine (0.6-1.2) mg/dL Glucose (65-100) mg/dL POC Glucose < 10 L < 10 L 122 H (70-105) mg/dL Lactic Acid (0.7-2.0) mmol/L Calcium (8.4-10.2) mg/dL Phosphorus (2.5-4.5) mg/dL Magnesium (1.7-2.3) mg/dL Total Bilirubin (0.1-1.2) mg/dL AST (5-40) units/L ALT (7-56) units/L Alkaline Phosphatase (35-129) units/L Ammonia (25-60) umol/L Total Protein (6.3-8.2) g/dL Albumin (3.9-5) g/dL Arterial Blood Ionized Calcium (4.6-5.3) mg/dL 02/20/21 02/20/21 02/20/21 Range/Units 02:53 05:00 05:00 WBC 32.9 H (4.5-11.0) K/mm3 RBC 3.12 L (3.65-5.03) M/mm3 MCV 113 H (79-97) fl MCH 34 H (28-32) pg RDW 23.1 H (13.2-15.2) % Plt Count 70 L (140-440) K/mm3 ABG pH 7.302 L (7.320-7.450) POC ABG pCO2 27.4 L (32.0-48.0) mmHg POC ABG pO2 164.4 H (83-108) mmHg ABG Hemoglobin 11.2 L (12.0-17.5) ABG Oxyhemoglobin 98.5 H (94-98) ABG Sodium 146.3 H (136.0-145.0) mmol/L ABG Potassium 3.3 L (3.40-4.50) mmol/L ABG Chloride 112.0 H (98-107) mmol/L Carboxyhemoglobin 0.4 L (0.5-1.5) Sodium 154 H (137-145) mmol/L Potassium 3.3 L (3.6-5.0) mmol/L Chloride 108.3 H (98-107) mmol/L Carbon Dioxide 14 L D (22-30) mmol/L Creatinine 2.2 H D (0.6-1.2) mg/dL Glucose 6 L* (65-100) mg/dL POC Glucose (70-105) mg/dL Lactic Acid (0.7-2.0) mmol/L Calcium 4.9 L* (8.4-10.2) mg/dL Phosphorus 7.00 H (2.5-4.5) mg/dL Magnesium 1.30 L (1.7-2.3) mg/dL Total Bilirubin 4.20 H (0.1-1.2) mg/dL AST 957 H (5-40) units/L ALT 199 H (7-56) units/L Alkaline Phosphatase 244 H (35-129) units/L Ammonia (25-60) umol/L Total Protein 3.4 L (6.3-8.2) g/dL Albumin 1.1 L (3.9-5) g/dL Arterial Blood Ionized Calcium 3.0 L (4.6-5.3) mg/dL 02/20/21 02/20/21 02/20/21 Range/Units 05:00 05:00 05:20 WBC (4.5-11.0) K/mm3 RBC (3.65-5.03) M/mm3 MCV (79-97) fl MCH (28-32) pg RDW (13.2-15.2) % Plt Count (140-440) K/mm3 ABG pH (7.320-7.450) POC ABG pCO2 (32.0-48.0) mmHg POC ABG pO2 (83-108) mmHg ABG Hemoglobin (12.0-17.5) ABG Oxyhemoglobin (94-98) ABG Sodium (136.0-145.0) mmol/L ABG Potassium (3.40-4.50) mmol/L ABG Chloride (98-107) mmol/L Carboxyhemoglobin (0.5-1.5) Sodium (137-145) mmol/L Potassium (3.6-5.0) mmol/L Chloride (98-107) mmol/L Carbon Dioxide (22-30) mmol/L Creatinine (0.6-1.2) mg/dL Glucose (65-100) mg/dL POC Glucose < 10 L (70-105) mg/dL Lactic Acid 19.60 H* (0.7-2.0) mmol/L Calcium (8.4-10.2) mg/dL Phosphorus (2.5-4.5) mg/dL Magnesium (1.7-2.3) mg/dL Total Bilirubin (0.1-1.2) mg/dL AST (5-40) units/L ALT (7-56) units/L Alkaline Phosphatase (35-129) units/L Ammonia 101.0 H (25-60) umol/L Total Protein (6.3-8.2) g/dL Albumin (3.9-5) g/dL Arterial Blood Ionized Calcium (4.6-5.3) mg/dL 02/20/21 02/20/21 02/20/21 Range/Units 06:04 06:37 08:33 WBC (4.5-11.0) K/mm3 RBC (3.65-5.03) M/mm3 MCV (79-97) fl MCH (28-32) pg RDW (13.2-15.2) % Plt Count (140-440) K/mm3 ABG pH (7.320-7.450) POC ABG pCO2 (32.0-48.0) mmHg POC ABG pO2 (83-108) mmHg ABG Hemoglobin (12.0-17.5) ABG Oxyhemoglobin (94-98) ABG Sodium (136.0-145.0) mmol/L ABG Potassium (3.40-4.50) mmol/L ABG Chloride (98-107) mmol/L Carboxyhemoglobin (0.5-1.5) Sodium (137-145) mmol/L Potassium (3.6-5.0) mmol/L Chloride (98-107) mmol/L Carbon Dioxide (22-30) mmol/L Creatinine (0.6-1.2) mg/dL Glucose (65-100) mg/dL POC Glucose 17 L 180 H 153 H (70-105) mg/dL Lactic Acid (0.7-2.0) mmol/L Calcium (8.4-10.2) mg/dL Phosphorus (2.5-4.5) mg/dL Magnesium (1.7-2.3) mg/dL Total Bilirubin (0.1-1.2) mg/dL AST (5-40) units/L ALT (7-56) units/L Alkaline Phosphatase (35-129) units/L Ammonia (25-60) umol/L Total Protein (6.3-8.2) g/dL Albumin (3.9-5) g/dL Arterial Blood Ionized Calcium (4.6-5.3) mg/dL - Imaging and cardiology Other: other (Brain flow study as evaluated last night.) HEART Score - HEART Score Troponin: Troponin T < 0.010 ng/mL (0.00-0.029) 02/16/21 03:10
[2021-02-20] MEDS: FOLIC ACID 1 MG TAB PO SCH (11:10)
[2021-02-20] MEDS: ASPIRIN 81 MG TAB CHEW PO SCH (11:10)
[2021-02-20] MEDS: THIAMINE 100 MG TAB PO SCH (11:10)
[2021-02-20] MEDS: FAMOTIDINE 20 MG/2 ML INJ IV SCH (11:10)
[2021-02-20] MEDS: VASOPRESSIN 20 UNIT in SODIUM CHLORIDE 0.9% 100 ML IV SCH (11:11)
[2021-02-20] MEDS: SENNOSIDES/DOCUSATE SODIUM 8.6/50 MG TAB FEEDTUBE SCH (11:12)
--- NOTE | 2021-02-20 11:17 | Progress Note ---
Assessment and Plan Encephalopathy Out of the hospital PEA arrest Large right pleural effusion End Stage Liver Disease Chronic alcohol abuse Echocardiogram done shows normal left ventricular systolic function with ejection fraction 60-65%. Supportive cardiac management. Subjective Date of service: 02/20/21 Principal diagnosis: Acute hypoxic respiratory failure cardiac arrest Interval history: Patient remains unresponsive on the vent and on multiple pressors for support. Objective Vital Signs Temp Pulse Pulse Pulse Pulse Pulse Resp 02/20/21 11:01 88 36 H 02/20/21 10:51 88 36 H 02/20/21 10:41 89 35 H 02/20/21 10:31 89 38 H 02/20/21 10:21 89 33 H 02/20/21 10:11 89 30 H 02/20/21 10:01 89 26 H 02/20/21 09:51 89 25 H 02/20/21 09:40 88 24 02/20/21 09:31 88 19 02/20/21 09:21 89 15 02/20/21 09:11 88 17 02/20/21 09:01 87 23 02/20/21 08:51 86 19 02/20/21 08:41 85 21 02/20/21 08:31 85 18 02/20/21 08:20 85 13 02/20/21 08:10 93 F L 86 86 15 02/20/21 08:01 86 15 02/20/21 08:00 88 85 15 02/20/21 07:53 94 H 98 H 02/20/21 07:51 86 17 02/20/21 07:40 87 24 02/20/21 07:31 88 20 02/20/21 07:21 88 15 02/20/21 07:11 88 15 02/20/21 07:01 89 15 02/20/21 06:51 89 12 02/20/21 06:41 88 14 02/20/21 06:31 88 17 02/20/21 06:21 86 16 02/20/21 06:11 88 14 02/20/21 06:01 88 19 02/20/21 05:51 174 H 22 02/20/21 05:41 87 21 02/20/21 05:31 90 24 02/20/21 05:21 91 H 22 02/20/21 05:11 92 H 24 02/20/21 05:01 93 H 23 02/20/21 04:51 92 H 25 H 08/04/21 04:41 91 H 23 02/20/21 04:31 81 18 02/20/21 04:21 93 H 30 H 02/20/21 04:14 02/20/21 04:11 94 H 31 H 02/20/21 04:01 95 H 24 02/20/21 04:00 97.3 F L 104 H 25 H 02/20/21 03:51 94 H 26 H 02/20/21 03:41 94 H 29 H 02/20/21 03:31 93 H 30 H 02/20/21 03:21 92 H 21 02/20/21 03:11 92 H 20 02/20/21 03:08 92 H 94 H 02/20/21 03:01 92 H 18 02/20/21 02:51 93 H 21 02/20/21 02:41 93 H 20 02/20/21 02:31 93 H 19 02/20/21 02:21 91 H 20 02/20/21 02:11 89 18 02/20/21 02:00 91 H 16 02/20/21 01:50 91 H 22 02/20/21 01:40 92 H 19 02/20/21 01:30 92 H 19 02/20/21 01:20 93 H 17 02/20/21 01:10 93 H 20 02/20/21 01:00 95 H 25 H 02/20/21 00:50 95 H 23 02/20/21 00:40 96 H 19 02/20/21 00:30 97 H 21 02/20/21 00:20 100 H 51 H 02/20/21 00:10 98 H 34 H 02/20/21 00:00 98 H 104 H 28 H 02/19/21 23:50 96 H 39 H 02/19/21 23:43 98.1 F 02/19/21 23:40 95 H 28 H 02/19/21 23:30 96 H 19 02/19/21 23:20 97 H 25 H 02/19/21 23:10 96 H 19 02/19/21 23:00 97 H 26 H 02/19/21 22:50 96 H 20 02/19/21 22:40 98 H 21 02/19/21 22:34 98 H 27 H 02/19/21 22:30 98 H 26 H 02/19/21 22:20 99 H 24 02/19/21 22:10 101 H 26 H 02/19/21 22:00 102 H 23 02/19/21 21:50 102 H 25 H 02/19/21 21:40 102 H 25 H 02/19/21 21:30 102 H 25 H 02/19/21 21:20 102 H 19 02/19/21 21:10 103 H 25 H 02/19/21 21:01 103 H 26 H 02/19/21 20:51 103 H 21 02/19/21 20:41 104 H 36 H 02/19/21 20:30 104 H 22 02/19/21 20:20 105 H 18 02/19/21 20:10 104 H 27 H 02/19/21 20:00 98.9 F 106 H 104 H 25 H 02/19/21 19:50 105 H 19 02/19/21 19:40 103 H 25 H 02/19/21 19:30 104 H 27 H 02/19/21 19:20 103 H 18 02/19/21 19:16 105 H 02/19/21 19:11 103 H 02/19/21 19:10 103 H 20 02/19/21 19:00 103 H 21 02/19/21 18:50 103 H 26 H 02/19/21 18:40 102 H 21 02/19/21 18:30 101 H 24 02/19/21 18:20 102 H 21 02/19/21 18:10 99 H 18 02/19/21 18:00 102 H 39 H 02/19/21 17:50 102 H 32 H 02/19/21 17:40 105 H 34 H 02/19/21 17:30 104 H 31 H 02/19/21 17:20 104 H 39 H 02/19/21 17:10 104 H 21 02/19/21 17:00 105 H 32 H 02/19/21 16:50 105 H 30 H 02/19/21 16:40 106 H 35 H 02/19/21 16:30 106 H 38 H 02/19/21 16:26 104 H 02/19/21 16:20 103 H 25 H 02/19/21 16:10 96 H 25 H 02/19/21 16:00 99.2 F 103 H 104 H 25 H 02/19/21 15:50 118 H 23 02/19/21 15:40 105 H 16 02/19/21 15:30 108 H 22 02/19/21 15:20 108 H 25 H 02/19/21 15:10 108 H 30 H 02/19/21 15:05 107 H 02/19/21 15:00 109 H 35 H 02/19/21 14:50 109 H 28 H 02/19/21 14:40 107 H 30 H 02/19/21 14:30 106 H 34 H 02/19/21 14:20 105 H 23 02/19/21 14:10 106 H 24 02/19/21 14:00 110 H 21 02/19/21 13:50 108 H 24 02/19/21 13:40 103 H 48 H 02/19/21 13:38 102 H 35 H 02/19/21 12:50 104 H 23 02/19/21 12:40 104 H 26 H 02/19/21 12:30 102 H 35 H 02/19/21 12:20 97 H 28 H 02/19/21 12:10 96 H 26 H 02/19/21 12:00 98.0 F 101 H 27 H 02/19/21 11:50 101 H 29 H 02/19/21 11:40 105 H 29 H 02/19/21 11:30 106 H 28 H 02/19/21 11:20 104 H 28 H Resp Resp BP Pulse Ox 02/20/21 11:01 100 02/20/21 10:51 100 02/20/21 10:41 100 02/20/21 10:31 100 02/20/21 10:21 99 02/20/21 10:11 100 02/20/21 10:01 100 02/20/21 09:51 100 02/20/21 09:40 100 02/20/21 09:31 100 02/20/21 09:21 100 02/20/21 09:11 97 02/20/21 09:01 96 02/20/21 08:51 100 02/20/21 08:41 100 02/20/21 08:31 100 02/20/21 08:20 100 02/20/21 08:10 97/64 100 02/20/21 08:01 97/64 02/20/21 08:00 100 02/20/21 07:53 27 H 27 H 02/20/21 07:51 97/64 02/20/21 07:40 116/57 02/20/21 07:31 97/64 99 02/20/21 07:21 97/64 02/20/21 07:11 97/64 02/20/21 07:01 97/64 02/20/21 06:51 97/64 02/20/21 06:41 97/64 02/20/21 06:31 97/64 02/20/21 06:21 97/64 02/20/21 06:11 97/64 100 02/20/21 06:01 97/64 02/20/21 05:51 97/64 02/20/21 05:41 97/64 85 02/20/21 05:31 97/64 02/20/21 05:21 97/64 02/20/21 05:11 97/64 02/20/21 05:01 97/64 02/20/21 04:51 97/64 02/20/21 04:41 97/64 02/20/21 04:31 97/64 02/20/21 04:21 97/64 02/20/21 04:14 98 02/20/21 04:11 97/64 02/20/21 04:01 97/64 02/20/21 04:00 90 02/20/21 03:51 97/64 02/20/21 03:41 97/64 93 02/20/21 03:31 97/64 02/20/21 03:21 97/64 02/20/21 03:11 97/64 02/20/21 03:08 31 H 118/48 93 02/20/21 03:01 97/64 96 02/20/21 02:51 97/64 02/20/21 02:41 97/64 94 02/20/21 02:31 97/64 02/20/21 02:21 97/64 100 02/20/21 02:11 97/64 02/20/21 02:00 116/57 02/20/21 01:50 97/64 02/20/21 01:40 116/57 02/20/21 01:30 97/64 02/20/21 01:20 97/64 02/20/21 01:10 97/64 95 02/20/21 01:00 97/64 91 08/04/21 00:50 97/64 02/20/21 00:40 97/64 91 02/20/21 00:30 97/64 02/20/21 00:20 97/64 98 02/20/21 00:10 97/64 97 02/20/21 00:00 97/64 98 02/19/21 23:50 97/64 96 02/19/21 23:43 02/19/21 23:40 97/64 93 02/19/21 23:30 97/64 99 02/19/21 23:20 97/64 100 02/19/21 23:10 102/49 02/19/21 23:00 102/49 78 L 02/19/21 22:50 93/43 77 L 02/19/21 22:40 93/43 81 L 02/19/21 22:34 103/48 78 L 02/19/21 22:30 103/48 02/19/21 22:20 108/52 02/19/21 22:10 111/51 82 L 02/19/21 22:00 129/48 02/19/21 21:50 114/54 02/19/21 21:40 116/57 80 L 02/19/21 21:30 130/61 100 02/19/21 21:20 130/61 100 02/19/21 21:10 123/60 100 02/19/21 21:01 109/67 97 02/19/21 20:51 114/57 92 02/19/21 20:41 99/67 02/19/21 20:30 125/34 02/19/21 20:20 118/69 75 L 02/19/21 20:10 94/56 99 02/19/21 20:00 102/64 94 02/19/21 19:50 91/51 92 02/19/21 19:40 91/51 75 L 02/19/21 19:30 115/53 100 02/19/21 19:20 140/68 97 02/19/21 19:16 29 H 02/19/21 19:11 92/54 100 02/19/21 19:10 84/61 100 02/19/21 19:00 114/41 94 02/19/21 18:50 118/68 98 02/19/21 18:40 117/89 97 02/19/21 18:30 113/53 97 02/19/21 18:20 118/79 100 02/19/21 18:10 118/79 94 02/19/21 18:00 118/79 91 02/19/21 17:50 94/46 88 02/19/21 17:40 94/46 90 02/19/21 17:30 103/58 91 02/19/21 17:20 97/57 92 02/19/21 17:10 123/70 99 02/19/21 17:00 95/60 82 L 02/19/21 16:50 123/70 90 02/19/21 16:40 123/70 87 02/19/21 16:30 118/87 100 02/19/21 16:26 118/87 02/19/21 16:20 118/87 100 02/19/21 16:10 110/58 100 02/19/21 16:00 89/69 94 02/19/21 15:50 110/58 100 02/19/21 15:40 97/56 99 02/19/21 15:30 97/56 99 02/19/21 15:20 118/98 99 02/19/21 15:10 129/70 99 02/19/21 15:05 81/65 100 02/19/21 15:00 100 02/19/21 14:50 99/26 98 02/19/21 14:40 100 02/19/21 14:30 53/15 100 02/19/21 14:20 58/22 99 02/19/21 14:10 93 02/19/21 14:00 126/38 95 02/19/21 13:50 126/38 100 02/19/21 13:40 126/38 100 02/19/21 13:38 126/38 77 L 02/19/21 12:50 113/49 100 02/19/21 12:40 106/62 100 02/19/21 12:30 140/35 100 02/19/21 12:20 124/64 100 02/19/21 12:10 85 02/19/21 12:00 95/48 96 02/19/21 11:50 110/74 90 02/19/21 11:40 110/74 93 02/19/21 11:30 110/74 94 02/19/21 11:20 110/74 94 - Physical Examination General: Other (Unresponsive, on the vent) HEENT: Positive: Other (Pupils fixed) Cardiac: Positive: Reg Rate and Rhythm Neuro: Positive: Other (Unresponsive, on the vent) - Labs and Meds Cardiac Enzymes 02/20/21 Range/Units 05:00 AST 957 H (5-40) units/L CBC 02/20/21 Range/Units 05:00 WBC 32.9 H (4.5-11.0) K/mm3 RBC 3.12 L (3.65-5.03) M/mm3 Hgb 10.7 (10.1-14.3) gm/dl Hct 35.2 (30.3-42.9) % Plt Count 70 L (140-440) K/mm3 Comprehensive Metabolic Panel 02/20/21 Range/Units 05:00 Sodium 154 H (137-145) mmol/L Potassium 3.3 L (3.6-5.0) mmol/L Chloride 108.3 H (98-107) mmol/L Carbon Dioxide 14 L D (22-30) mmol/L BUN 17 (7-17) mg/dL Creatinine 2.2 H D (0.6-1.2) mg/dL Glucose 6 L* (65-100) mg/dL Calcium 4.9 L* (8.4-10.2) mg/dL AST 957 H (5-40) units/L ALT 199 H (7-56) units/L Alkaline Phosphatase 244 H (35-129) units/L Total Protein 3.4 L (6.3-8.2) g/dL Albumin 1.1 L (3.9-5) g/dL
[2021-02-20] MEDS ORDERED: D5W/0.9% NACL 1,000 ML IV SCH (13:00)
[2021-02-20 13:21] LABS: Band Neutrophils # (Manual) 2.3 K/mm3; Myelocytes # (Manual) 1.3 K/mm3; Total Cells Counted 100
[2021-02-20 13:22] LABS: Anisocytosis 2+; Hypersegmented Neutrophils Few; Macrocytosis 1+; Toxic Granulation 1+; Toxic Vacuolation 2+
[2021-02-20 13:26] LABS: Platelet Estimate Consistent w Auto
--- NOTE | 2021-02-20 13:53 | Event Note ---
Date: 02/20/21 Updated daughter with help of case management that patient is . Once declared brain , she is legally . The family did not have a clear understanding of this on yesterday based on discussion. Daughter became very upset and yelling. Attempted to calm her down and answer her questions but then she requested to speak to my tank builder supervisor (which I have none) and then nurse internet technology manager for the unit. The nurse internet technology manager for the unit graciously came to the meeting and verbatim said the exact info that I had previously given the daughter. The daughter seemed then to accept the fact now. She ( the daughter), is only concerned about obtaining paper work to help her father get back to the [place] to honor their mother, his . The daughter also states that the patient would not want to be placed in this morgue and that they have contacted a home, she does not know the name, but states that that home will be coming to retrieve the patient. Given that the patient is legally , the endotracheal tube will be removed, and all vasopressor therapy and other medications will be stopped.
--- NOTE | 2021-02-20 15:33 | Progress Note ---
Assessment and Plan Cultures: Blood culture 02/16/2021 Yeast A/P: 50-year-old female past medical history ESLD, alcohol abuse, malnutrition, esophageal varices, psoriasis #Acute sepsis: With hypothermia and leukocytosis. Secondary to candidemia as well as critical illness #Global rash: burn from shower vs TEN/SJS? #Candidemia: Await speciation and DICK from blood cultures. Negative TTE #Staph bacteremia: Source is likely global skin rash #Cardiac arrest: Currently unresponsive, poor prognosis #ESLD Recs: -Patient has been declared . Thank you for the consult, we will continue to follow. Shanika Elizabeth MD [facility] ([facility]) O: [phone] F: [phone] Subjective Date of service: 02/20/21 Principal diagnosis: Acute hypoxic respiratory failure cardiac arrest Interval history: Afebrile with low temperatures, white count 32.9. This is stable from yesterday. Blood cultures with MSSA. Patient has since been declared Imaging personally reviewed: Chest x-ray: Pending change. Objective - Exam Narrative Exam: Physical Exam: Constitutional: Intubated, nonresponsive Head, Ears, Nose: Normocephalic, atraumatic. External ears, nose normal Eyes: Conjunctivae/corneas clear. No icterus. No ptosis. Neck: ETT Oral: ETT Cardiovascular: S1, S2 normal. Respiratory: Good air entry, clear to auscultation bilaterally GI: Soft, non-tender; bowel sounds normal. No peritoneal signs. Musculoskeletal: No pedal edema, no cyanosis. Skin: Global red rash with skin sloughing. Hem/Lymphatic: No palpable cervical or supraclavicular nodes. No lymphangitis Psych: Nonresponsive Neurological: Nonresponsive - Constitutional Vitals: Vital Signs Temp Pulse Resp BP Pulse Ox 93 F L 89 12 97/64 94 02/20/21 08:10 02/20/21 13:01 02/20/21 13:01 02/20/21 08:10 02/20/21 13:01 Temperature -Last 24 Hours Temperature 93 F Temperature 97.3 F Temperature 98.1 F Temperature 98.9 F Temperature 99.2 F - Labs CBC & Chem 7: 02/20/21 05:00 02/20/21 05:00 Labs: Abnormal lab results 02/19/21 02/19/21 02/19/21 Range/Units 23:20 23:30 23:51 WBC (4.5-11.0) K/mm3 RBC (3.65-5.03) M/mm3 MCV (79-97) fl MCH (28-32) pg RDW (13.2-15.2) % Plt Count (140-440) K/mm3 Seg Neuts % (Manual) (40.0-70.0) % Nucleated RBC % (0.0-0.9) % Seg Neutrophils # Man (1.8-7.7) K/mm3 Lymphocytes # (Manual) (1.2-5.4) K/mm3 Monocytes # (Manual) (0.0-0.8) K/mm3 ABG pH (7.320-7.450) POC ABG pCO2 (32.0-48.0) mmHg POC ABG pO2 (83-108) mmHg ABG Hemoglobin (12.0-17.5) ABG Oxyhemoglobin (94-98) ABG Sodium (136.0-145.0) mmol/L ABG Potassium (3.40-4.50) mmol/L ABG Chloride (98-107) mmol/L Carboxyhemoglobin (0.5-1.5) Sodium (137-145) mmol/L Potassium (3.6-5.0) mmol/L Chloride (98-107) mmol/L Carbon Dioxide (22-30) mmol/L Creatinine (0.6-1.2) mg/dL Glucose (65-100) mg/dL POC Glucose < 10 L < 10 L 122 H (70-105) mg/dL Lactic Acid (0.7-2.0) mmol/L Calcium (8.4-10.2) mg/dL Phosphorus (2.5-4.5) mg/dL Magnesium (1.7-2.3) mg/dL Total Bilirubin (0.1-1.2) mg/dL AST (5-40) units/L ALT (7-56) units/L Alkaline Phosphatase (35-129) units/L Ammonia (25-60) umol/L Total Protein (6.3-8.2) g/dL Albumin (3.9-5) g/dL Arterial Blood Ionized Calcium (4.6-5.3) mg/dL 02/20/21 02/20/21 02/20/21 Range/Units 02:53 05:00 05:00 WBC 32.9 H (4.5-11.0) K/mm3 RBC 3.12 L (3.65-5.03) M/mm3 MCV 113 H (79-97) fl MCH 34 H (28-32) pg RDW 23.1 H (13.2-15.2) % Plt Count 70 L (140-440) K/mm3 Seg Neuts % (Manual) 80.0 H (40.0-70.0) % Nucleated RBC % 5.0 H (0.0-0.9) % Seg Neutrophils # Man 26.3 H (1.8-7.7) K/mm3 Lymphocytes # (Manual) 0.0 L (1.2-5.4) K/mm3 Monocytes # (Manual) 1.0 H (0.0-0.8) K/mm3 ABG pH 7.302 L (7.320-7.450) POC ABG pCO2 27.4 L (32.0-48.0) mmHg POC ABG pO2 164.4 H (83-108) mmHg ABG Hemoglobin 11.2 L (12.0-17.5) ABG Oxyhemoglobin 98.5 H (94-98) ABG Sodium 146.3 H (136.0-145.0) mmol/L ABG Potassium 3.3 L (3.40-4.50) mmol/L ABG Chloride 112.0 H (98-107) mmol/L Carboxyhemoglobin 0.4 L (0.5-1.5) Sodium 154 H (137-145) mmol/L Potassium 3.3 L (3.6-5.0) mmol/L Chloride 108.3 H (98-107) mmol/L Carbon Dioxide 14 L D (22-30) mmol/L Creatinine 2.2 H D (0.6-1.2) mg/dL Glucose 6 L* (65-100) mg/dL POC Glucose (70-105) mg/dL Lactic Acid (0.7-2.0) mmol/L Calcium 4.9 L* (8.4-10.2) mg/dL Phosphorus 7.00 H (2.5-4.5) mg/dL Magnesium 1.30 L (1.7-2.3) mg/dL Total Bilirubin 4.20 H (0.1-1.2) mg/dL AST 957 H (5-40) units/L ALT 199 H (7-56) units/L Alkaline Phosphatase 244 H (35-129) units/L Ammonia (25-60) umol/L Total Protein 3.4 L (6.3-8.2) g/dL Albumin 1.1 L (3.9-5) g/dL Arterial Blood Ionized Calcium 3.0 L (4.6-5.3) mg/dL 02/20/21 02/20/21 02/20/21 Range/Units 05:00 05:00 05:20 WBC (4.5-11.0) K/mm3 RBC (3.65-5.03) M/mm3 MCV (79-97) fl MCH (28-32) pg RDW (13.2-15.2) % Plt Count (140-440) K/mm3 Seg Neuts % (Manual) (40.0-70.0) % Nucleated RBC % (0.0-0.9) % Seg Neutrophils # Man (1.8-7.7) K/mm3 Lymphocytes # (Manual) (1.2-5.4) K/mm3 Monocytes # (Manual) (0.0-0.8) K/mm3 ABG pH (7.320-7.450) POC ABG pCO2 (32.0-48.0) mmHg POC ABG pO2 (83-108) mmHg ABG Hemoglobin (12.0-17.5) ABG Oxyhemoglobin (94-98) ABG Sodium (136.0-145.0) mmol/L ABG Potassium (3.40-4.50) mmol/L ABG Chloride (98-107) mmol/L Carboxyhemoglobin (0.5-1.5) Sodium (137-145) mmol/L Potassium (3.6-5.0) mmol/L Chloride (98-107) mmol/L Carbon Dioxide (22-30) mmol/L Creatinine (0.6-1.2) mg/dL Glucose (65-100) mg/dL POC Glucose < 10 L (70-105) mg/dL Lactic Acid 19.60 H* (0.7-2.0) mmol/L Calcium (8.4-10.2) mg/dL Phosphorus (2.5-4.5) mg/dL Magnesium (1.7-2.3) mg/dL Total Bilirubin (0.1-1.2) mg/dL AST (5-40) units/L ALT (7-56) units/L Alkaline Phosphatase (35-129) units/L Ammonia 101.0 H (25-60) umol/L Total Protein (6.3-8.2) g/dL Albumin (3.9-5) g/dL Arterial Blood Ionized Calcium (4.6-5.3) mg/dL 02/20/21 02/20/21 02/20/21 Range/Units 06:04 06:37 08:33 WBC (4.5-11.0) K/mm3 RBC (3.65-5.03) M/mm3 MCV (79-97) fl MCH (28-32) pg RDW (13.2-15.2) % Plt Count (140-440) K/mm3 Seg Neuts % (Manual) (40.0-70.0) % Nucleated RBC % (0.0-0.9) % Seg Neutrophils # Man (1.8-7.7) K/mm3 Lymphocytes # (Manual) (1.2-5.4) K/mm3 Monocytes # (Manual) (0.0-0.8) K/mm3 ABG pH (7.320-7.450) POC ABG pCO2 (32.0-48.0) mmHg POC ABG pO2 (83-108) mmHg ABG Hemoglobin (12.0-17.5) ABG Oxyhemoglobin (94-98) ABG Sodium (136.0-145.0) mmol/L ABG Potassium (3.40-4.50) mmol/L ABG Chloride (98-107) mmol/L Carboxyhemoglobin (0.5-1.5) Sodium (137-145) mmol/L Potassium (3.6-5.0) mmol/L Chloride (98-107) mmol/L Carbon Dioxide (22-30) mmol/L Creatinine (0.6-1.2) mg/dL Glucose (65-100) mg/dL POC Glucose 17 L 180 H 153 H (70-105) mg/dL Lactic Acid (0.7-2.0) mmol/L Calcium (8.4-10.2) mg/dL Phosphorus (2.5-4.5) mg/dL Magnesium (1.7-2.3) mg/dL Total Bilirubin (0.1-1.2) mg/dL AST (5-40) units/L ALT (7-56) units/L Alkaline Phosphatase (35-129) units/L Ammonia (25-60) umol/L Total Protein (6.3-8.2) g/dL Albumin (3.9-5) g/dL Arterial Blood Ionized Calcium (4.6-5.3) mg/dL 02/20/21 Range/Units 11:25 WBC (4.5-11.0) K/mm3 RBC (3.65-5.03) M/mm3 MCV (79-97) fl MCH (28-32) pg RDW (13.2-15.2) % Plt Count (140-440) K/mm3 Seg Neuts % (Manual) (40.0-70.0) % Nucleated RBC % (0.0-0.9) % Seg Neutrophils # Man (1.8-7.7) K/mm3 Lymphocytes # (Manual) (1.2-5.4) K/mm3 Monocytes # (Manual) (0.0-0.8) K/mm3 ABG pH (7.320-7.450) POC ABG pCO2 (32.0-48.0) mmHg POC ABG pO2 (83-108) mmHg ABG Hemoglobin (12.0-17.5) ABG Oxyhemoglobin (94-98) ABG Sodium (136.0-145.0) mmol/L ABG Potassium (3.40-4.50) mmol/L ABG Chloride (98-107) mmol/L Carboxyhemoglobin (0.5-1.5) Sodium (137-145) mmol/L Potassium (3.6-5.0) mmol/L Chloride (98-107) mmol/L Carbon Dioxide (22-30) mmol/L Creatinine (0.6-1.2) mg/dL Glucose (65-100) mg/dL POC Glucose 50 L (70-105) mg/dL Lactic Acid (0.7-2.0) mmol/L Calcium (8.4-10.2) mg/dL Phosphorus (2.5-4.5) mg/dL Magnesium (1.7-2.3) mg/dL Total Bilirubin (0.1-1.2) mg/dL AST (5-40) units/L ALT (7-56) units/L Alkaline Phosphatase (35-129) units/L Ammonia (25-60) umol/L Total Protein (6.3-8.2) g/dL Albumin (3.9-5) g/dL Arterial Blood Ionized Calcium (4.6-5.3) mg/dL
--- NOTE | 2021-02-20 17:47 | Death Summary ---
Summary - Providers Date of service: 02/20/21 Consults: 02/16/21 01:05 Consult to Physician [CONS] Stat Comment: Dr. Oconnor spoke with Dr. Ramey @ 0104 Consulting Provider: ALONSO RAMEY Physician Instructions: Reason For Exam: critical patient 02/16/21 01:31 Consult to Dietitian/Nutrition [CONS] Routine Physician Instructions: Reason For Exam: Reason for Consult: Diet education Consult to Physician [CONS] Routine Comment: Consulting Provider: LISA SIFUENTES Physician Instructions: Reason For Exam: Hepatic encephalopathy Consult to Physician [CONS] Routine Comment: Consulting Provider: BIENVENIDO BEST Physician Instructions: Reason For Exam: Cardiac arrest 02/16/21 01:57 Consult to Physician [CONS] Routine Comment: Consulting Provider: SAMRA EASLEY Physician Instructions: Reason For Exam: Anoxic encephalopathy 02/17/21 14:36 Consult to Physician [CONS] Routine Comment: Consulting Provider: SHANDRA MAYO Physician Instructions: Reason For Exam: yeast in blood culture Attending: SELENE ALCANTARA - summary Date of admission: 02/16/21 01:07 Date of : 02/20/21 Reason for admission: Acute cardiorespiratory arrest. Significant findings: 02/19/2021 Brain flow study intracranial cerebral blood flow absent 02/15/[address] no significant abnormalities or intracranial abnormalities Abdominal pelvis CT large right pleural effusion and hepatic cirrhosis Small amount of ascites CT scan spine also unremarkable. Blood culture showed staph bacteremia. Patient also had fungemia. That was being treated by antifungals. Physical exam pertinent findings patient had rash consistent with a form of pemphigus that had exacerbated. It caused excoriation of skin folds all over back all over arms under her arms in the intertriginous areas. 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 Of note patient was recently discharged on 02/11 from [facility] after treatment for recurrent pleural effusion after thoracentesis x2. Upon arrival of EMS patient was found to be in PEA and required 20 minutes of ACLS to achieve ROSC and the patient was intubated. CXR revealed near complete opacification of the right hemothorax and CT head revealed no acute intracranial abnormality with possible left maxillary and sphinoed sinusitis, C-spine CT showed a large right pleural effusion, CTA chest showed very large right pleural effusion with near complete right lung atelectasis and mediastinal shift to the left and CT abdomen/pelvis showed a very large right pleural effusion which was unchanged , hepatic steatosis and cirrhosis, small amount of ascites. Patient was admitted to the hospital s/p cardiac arrest, septic shock, ESLD complicated by arthropathy, hepatic encephalopathy, ascites, pleural effusion, acute anoxic encephalopathy and large right pleural effusion. Consults were placed to critical care, neurology, GI and cardiology and [facility]OC[facility]. At this time patient was placed on broad-spectrum antibiotics for coverage of sepsis. Patient was placed on pressor support which were maxed out by 4 pressors. Patient was intubated did not require much sedation because of severe anoxic encephalopathy. Cardiology consult was obtained for treatment of cardiorespiratory arrest. No invasive treatment was provided since patient was acutely ill. Pertinent studies: Patient cerebral blood flow on 830 showed that there was absent blood flow. On physical exam patient's pupils are fixed and dilated at this point. Patient was not breathing over the vent Patient was also on 4 pressors. Disposition: #1 status post cardiorespiratory arrest. Patient found in the field with pulseless activityEchocardiogram from OSH shows EF of 25 to 30 -Patient found to have severe anoxic encephalopathy. Was intubated for acute respiratory failure. Patient also was suffering from sepsis multifactorial. Staph bacteremia as well as fungemia. Was being treated by infectious disease as well. -Patient was maxed out on all 4 pressors. Family informed that prognosis was grave. Patient eventually found for brain after brain flow scan. -Patient continued to decline. Evidence of multiorgan failure including end- stage liver disease which she had prior to admission, acute renal failure, acute hypoxic respiratory failure requiring ventilation, sepsis . - Final diagnosis (1) Acute anoxic encephalopathy Note: Final diagnosis: Cardiorespiratory failure secondary to cardiac arrest (2) Acute respiratory failure Note: Final diagnosis: (3) Adverse reaction to drug that acts primarily on skin Note: Final diagnosis: (4) Alcohol dependence Qualifiers: Complication of substance-induced condition: uncomplicated Note: Final diagnosis: (5) Alcoholic encephalopathy Note: Final diagnosis: (6) Ascites Qualifiers: Note: Final diagnosis: (7) Cardiopulmonary arrest Note: Final diagnosis: (8) Cellulitis of both lower extremities Note: Final diagnosis: (9) Cirrhosis of liver Note: Final diagnosis: (10) End stage liver disease Note: Final diagnosis:
== END 2021-02-20 17:15 | DRG 870 ==
LOC: ED 20:49 → CC1 02-16 01:07
PROVIDERS: ADMIT Hospitalist; ATTEND Internal Medicine
PROC: 5A1955Z Respiratory Ventilation, Greater than 96 Consecutive Hours (ICD-10-PCS; 2021-02-16)
PROC: 04HY32Z Insertion of Monitoring Device into Lower Artery, Percutaneous Approach (ICD-10-PCS; 2021-02-16)
PROC: 4A133B1 Monitoring of Arterial Pressure, Peripheral, Percutaneous Approach (ICD-10-PCS; 2021-02-16)
PROC: 4A133J1 Monitoring of Arterial Pulse, Peripheral, Percutaneous Approach (ICD-10-PCS; 2021-02-16)
PROC: 5A12012 Performance of Cardiac Output, Single, Manual (ICD-10-PCS; 2021-02-16)
PROC: 0BH17EZ Insertion of Endotracheal Airway into Trachea, Via Natural or Artificial Opening (ICD-10-PCS; principal; 2021-02-17)
PROC: 4A03XR1 Measurement of Arterial Saturation, Peripheral, External Approach (ICD-10-PCS; 2021-02-17)
DX: A41.9 Sepsis, unspecified organism (principal); R65.21 Severe sepsis with septic shock; J18.9 Pneumonia, unspecified organism; J96.21 Acute and chronic respiratory failure with hypoxia; K72.90 Hepatic failure, unspecified without coma; I46.9 Cardiac arrest, cause unspecified; G93.1 Anoxic brain damage, not elsewhere classified; K74.60 Unspecified cirrhosis of liver; J90 Pleural effusion, not elsewhere classified; T49.95XA Adverse effect of unspecified topical agent, initial encounter; E46 Unspecified protein-calorie malnutrition; Y95 Nosocomial condition; F17.209 Nicotine dependence, unspecified, with unspecified nicotine-induced disorders; F10.10 Alcohol abuse, uncomplicated; K92.2 Gastrointestinal hemorrhage, unspecified; I83.90 Asymptomatic varicose veins of unspecified lower extremity; D68.9 Coagulation defect, unspecified; E16.2 Hypoglycemia, unspecified; E87.2 Acidosis; B37.9 Candidiasis, unspecified; L53.0 Toxic erythema; F32.9 Major depressive disorder, single episode, unspecified; L40.9 Psoriasis, unspecified; I10 Essential (primary) hypertension; G89.29 Other chronic pain; M17.0 Bilateral primary osteoarthritis of knee; M19.012 Primary osteoarthritis, left shoulder; M19.011 Primary osteoarthritis, right shoulder; F17.210 Nicotine dependence, cigarettes, uncomplicated; T30.0 Burn of unspecified body region, unspecified degree; X08.8XXA Exposure to other specified smoke, fire and flames, initial encounter; Y93.89 Activity, other specified; Y92.89 Other specified places as the place of occurrence of the external cause; Y99.8 Other external cause status; Z79.899 Other long term (current) drug therapy; Z68.26 Body mass index [BMI] 26.0-26.9, adult
CPT/HCPCS: 31500; 32555; 36415; 36600; 70450; 71045; 71046; 71275; 72125; 74177; 76705; 78601; 80048; 80053; 80307; 80320; 81001; 82140; 82550; 82805; 82947; 82962; 83605; 83690; 83735; 84100; 84160; 84443; 84484; 85007; 85025; 85027; 85610; 85730; 87040; 87070; 87076; 87086; 87106; 87116; 87186; 87205; 87641; 88112; 88305; 89051; 93005; 93306; 94002; 94003; 94640; 95819; 96365; 96368; 96375; 99292; G0378; A6250; A9270-GY; A9512; C9113; G0480; J0171; J0282; J0456; J0610; J0692; J0696; J1170; J1953; J2060; J2248; J2370; J2704; J2765; J3370; J3411; J3475; J7030; J7040; J7042; J7050; J7060; J7070; J7120; Q9967